=== PATIENT | male | born 1945 | race Caucasian/White ===

== ENCOUNTER 2016-08-16 09:37 | Observation (INO) | payer OTHER ==
[~2016-08-16] VITALS: Ht 188 cm; Wt 104.3 kg
[~2016-08-16 09:37] MED LIST: ADVAIR 250-501 EACH INH; ADVAIR DISKUS 21 DSK INH; ALBUTEROL2.5 MG/3 M INH/SOL; ALDACTONE 25 MG25 MG PO; ALLOPURINOL300 M1 PO; AMIODARONE HCL200 M1 PO; AMIODARONE HCL200 MG PO; AMOXIL500 MG PO; ATORVASTATIN CA20 MG PO; ATORVASTATIN CA40 M1 PO; AUGMENTIN 875 M1 TAB PO; AUGMENTIN 875875 MG PO; AZITHROMYCIN IV; AZITHROMYCIN250 M1 PO; BACTRIM DS 8001 TAB PO; CARDIZEM CD120 MG PO; CARDIZEM CD240 M1 PO; CARDIZEM CD360 MG PO; CLEOCIN HCL300 MG PO; COLCHICINE0.6 MG PO; DIGOX0.125 MG PO; DIGOXIN0.125 MG PO; DIGOXIN125 MCG PO; DILTIAZEM HCL120 M2 PO; DILTIAZEM240 M1 PO; ELIQUIS2.5 MG PO; ELIQUIS5 M1 PO; ELIQUIS5 MG PO; FUROSEMIDE20 MG PO; FUROSEMIDE40 MG PO; HUMALOG 100U100 U/ML SC; HYDRALAZINE10 MG PO; KEFLEX500 MG PO; KLOR-CON 10MEQ10 MEQ PO; KLOR-CON M2020 MEQ PO; LASIX20 MG PO; LEVEMIR 10100 UNITS/ SC; LEVEMIR FL300 UNITS/ INJ; LEVEMIR FLEX100 U/ML SC; LIPITOR20 MG PO; LIPITOR40 M1 PO; LISINOPRIL10 M1 PO; METOPROLOL SUCC50 M1 PO; MOTRIN 600 MG600 MG PO; NICODERM C7 MG/24 HR TOP; NOVOLOG FLEX100 U/ML SC; OXYCODONE5 MG PO; PERCOCET 325 MG1 TA2 PO; PREDNISONE 10MG10 M1 PO; PREDNISONE 20MG20 MG PO; PREDNISONE 5 MG5 MG PO; PREDNISONE10 M2 PO; PREDNISONE10 MG PO; PREDNISONE5 MG PO; PRINIVIL 5MG5 MG PO; PROTONIX 40MG T40 MG PO; PROTONIX20 M1 PO; ROCEPHIN1000 MG IV; SOLU-MEDROL40 MG IV; SPIRIVA 18 MCG18 MCG INH; SPIRIVA18 MCG INH; SYMBICORT 160/41 PUF INH; Senokot S PO; TUDORZA PR400 MCG/Ac INH; VENTOLIN HFA18 GM INH; VITAMIN D1000 IU PO; VITAMIN D31000 IU PO; Vitamin D PO; ZITHROMAX 500M500 MG PO
--- NOTE | 2016-08-16 09:57 | NUR ---
PT C/O CP AND MORE SOB THEN USUAL X 2 DAYS. STATES PAIN IS PRIMARILY ON RIGHT SIDE. DENIES SWELLING IN ANKLES, STATES HE DOES TAKE LASIX. REPORTS A CLOSE FRIEND RECENTLY AT [place]
--- NOTE | 2016-08-16 10:09 | NUR ---
PT TO XRAY VIA W/C
--- NOTE | 2016-08-16 10:33 | ED DYSPNEA/ASTHMA COMPLAINT ---
History of Present Illness General Chief Complaint: Chest Pain Stated Complaint: CP AND SOB X 2DAYS, 2 LITERS OF O2 DAILY Source: patient, old records Exam Limitations: no limitations Vital Signs & Intake/Output Vital Signs & Intake/Output Vital Signs Date Time Temp Pulse Resp B/P Pulse O2 O2 Flow FiO2 Ox Delivery Rate 08/16 1204 98.4 70 24 107/57 98 Nasal 2.0L Cannula 08/16 1106 96 Nasal 2.0L Cannula 08/16 1049 96 Nasal 2.0L Cannula 08/16 0955 99.7 84 24 93/57 96 Nasal 2.0L Cannula Allergies Coded Allergies: NO KNOWN ALLERGIES (08/21/15) Reconcile Medications Albuterol Sulfate (Ventolin Hfa) 90 MCG HFA.AER.AD 2 PUFF INH 4 TIMES/DAY PRN WHEEZE/OUPDEWLIW-PK-AKBLAM (Reported) Albuterol Sulfate (Proventil) 2.5 MG/3 ML NEB 3 ML INH Q4P PRN SHORTNESS OF BREATH (Reported) Allopurinol 300 MG TAB 0.5 TAB PO DAILY GOUT (Reported) Amiodarone Hydrochloride (Amiodarone) 200 MG TAB 1 TAB PO DAILY HEART ( Reported) Apixaban (Eliquis) 5 MG TABLET 1 TAB PO BID BLOOD THINNER (Reported) Atorvastatin Calcium (Lipitor) 40 MG TAB 1 TAB PO QPM CHOLESTEROL (Reported) Azithromycin 250 MG TABLET 1 TAB PO DAILY COPD Digoxin 0.125 MG TAB 1 TAB PO QAM HEART (Reported) Diltiazem HCl (Cardizem Cd) 240 MG CAP.ER.24H 0.5 TAB PO DAILY HEART HEALTH ( Reported) FLUTICASONE/SALMETEROL (Advair 250-50 Diskus) 250 MCG-50 MCG/DOSE BLST.W.DEV 1 PUF INH BID COPD (Reported) Insulin Detemir (Levemir Flexpen) 100 UNIT/ML (3 ML) INSULN.PEN 10 UNIT SC QAM DIABETES (Reported) Insulin Lispro (Humalog) 100 UNIT/ML VIAL 0 SC TIDAC PRN DIABETES (Reported) 80-150 -- 1 UNIT. 151-200 -- 3 UNITS. 201-250 -- 5 UNITS. 251 - 300 -- 7 UNITS. 301 - 350 -- 9 UNITS. 351 - 400 -- 11 UNITS. >400 -- 13 UNITS AND CALL YOUR DOCTOR Lisinopril 10 MG TABLET 1 TAB PO DAILY HIGH BLOOD PRESSURE (Reported) Metoprolol Succinate (Metoprolol Succinate XL) [address] 1 TAB PO DAILY HEART/ BP (Reported) Pantoprazole Sodium (Protonix) 20 MG TAB 1 TAB PO DAILY ACID REFLUX (Reported ) Prednisone 10 MG TABLET 10 MG PO SI COPD On Take 05/18 4 tabs per day 05/19-05/20 3 tabs per day 05/21-05/22 2 tabs per day Then continue taking 2 tabs per day Tiotropium [place] (Spiriva) 18 MCG CAP.W.DEV 2 PUFF INH DAILY COPD (Reported ) Triage Note: PT C/O CP AND MORE SOB THEN USUAL X 2 DAYS. STATES PAIN IS PRIMARILY ON RIGHT SIDE. DENIES SWELLING IN ANKLES, STATES HE DOES TAKE LASIX. REPORTS A CLOSE FRIEND RECENTLY AT [place] Triage Nurses Notes Reviewed? yes HPI: Patient presents with increasing shortness of breath, cough and chills. Patient also states that he is been having some right-sided sharp chest pain for the past 8 hours. The pain is intermittent lasting a few seconds and then going away. There is no radiation of the pain. Positive dyspnea on exertion and wheezing. Patient has had to increase his O2 from 2 L/m to 4 L/m. Denies any weight gain. Positive anorexia but no nausea or vomiting. No documented fevers. Past History Travel History Traveled to [place] past 21 day No Medical History Any Pertinent Medical History? 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 Uncle ([place] at age 40). FH: myocardial infarction SISTER FH: lung cancer Hx Contributory? No Review of Systems Review of Systems Constitutional: Reports: see HPI, chills. EENTM: Reports: no symptoms. Respiratory: Reports: see HPI, cough, short of breath, wheezing. Cardiovascular: Reports: see HPI, chest pain. GI: Reports: no symptoms. Genitourinary: Reports: no symptoms. Musculoskeletal: Reports: no symptoms. Skin: Reports: no symptoms. Neurological/Psychological: Reports: no symptoms. Hematologic/Endocrine: Reports: no symptoms. Immunologic/Allergic: Reports: no symptoms. All Other Systems: Reviewed and Negative Physical Exam Physical Exam General Appearance: well developed/nourished, alert, awake, mild distress Head: atraumatic Eyes: Bilateral: PERRL, EOMI. Ears, Nose, Throat: normal pharynx, normal ENT inspection Neck: normal inspection, supple, full range of motion Respiratory: rhonchi, wheezing, respiratory distress Cardiovascular: regular rate/rhythm, normal peripheral pulses Gastrointestinal: normal bowel sounds, soft, non-tender Extremities: normal inspection, normal capillary refill, normal range of motion, no edema Neurologic/Psych: no motor/sensory deficits, awake, alert, oriented x 3, normal mood/affect Lymphatic: no anterior cervical alvino Core Measures ACS in differential dx? Yes ASA ordered for poss ACS? 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 Supervisor 08/16 1033 Active BLOOD CULTURE 08/16 1033 Active TROPONIN LEVEL 08/16 0958 Complete COMPREHENSIVE METABOLIC PANEL 08/16 0958 Complete CBC WITHOUT DIFFERENTIAL 08/16 0958 Complete EKG 08/16 0941 Active Laboratory Tests 08/16/16 1123: Anion Gap 9, Estimated GFR 46 L, BUN/Creatinine Ratio 22.7, Glucose 98, Calcium 9.9, Total Bilirubin 0.7, AST 21, ALT 25, Alkaline Phosphatase 63, Troponin I < 0.01, Total Protein 6.1 L, Albumin 3.6, Globulin 2.5, Albumin/Globulin Ratio 1.4 08/16/16 1035: CBC w Diff MAN DIFF ORDERED, RBC 4.58 L, MCV 90.3, MCH 29.4, RDW 16.5 H, MPV 8.7, Gran % 85.8 H, Lymphocytes % 7.1 L, Monocytes % 3.7, Eosinophils % 3.1, Basophils % 0.3, Absolute Granulocytes 8.6 H, Absolute Lymphocytes 0.7 L, Absolute Monocytes 0.4, Absolute Eosinophils 0.3, Absolute Basophils 0, Platelet Estimate ADEQUATE, Normocytic RBCs VERIFIED, Normochromic RBCs VERIFIED, PUBS MCHC 32.6 L Microbiology 08/16 1045 BLOOD: Blood Culture - RECD 08/16 1035 BLOOD: Blood Culture - RECD Diagnostic Imaging: Viewed by Me: Radiology Read. Discussed w/RAD: Radiology Read. CXR Impression: PATIENT: TESSA YANEZ JR PRESENT AGE: 71 PATIENT ACCOUNT NO: [id number] : 45 LOCATION: [facility] ORDERING PHYSICIAN: VAL GOODMAN MD SERVICE DATE: 08/16/16 EXAM TYPE: RAD - XRY-CHEST XRAY, PA AND LATERAL EXAMINATION: XR CHEST CLINICAL INFORMATION: Pneumonia cough shortness of breath COMPARISON: Prior chest April 2016 TECHNIQUE: PA and lateral views of the chest were obtained. FINDINGS: Calcification of the dorsal aorta unchanged. Cardiac silhouette mediastinum and pulmonary vascularity are otherwise normal. Lungs clear. Deformity of the right chest wall related to old rib fracture unchanged. IMPRESSION: No acute disease. DICTATED BY: TESSA LEO MD DATE/TIME DICTATED:08/16/161036 LEADER TIER:KIRSTY DATE/TIME TRANSCRIBED:08/16/161036 CONFIDENTIAL, DO NOT COPY WITHOUT APPROPRIATE AUTHORIZATION. <Electronically signed in Other Vendor System> SIGNED BY: TESSA LEO MD 08/16/16 1042 Initial ED EKG: NSR, nonspecific ST T wave chg Prior EKG: unchanged Rhythm Strip: normal sinus rhythm Comments: Patient ambulatory O2 sat was 94% on his 2 L of oxygen however he became very short of breath and was only speaking in 3 word sentences. Departure Departure Disposition: STILL A PATIENT Condition: Guarded Clinical Impression Primary Impression: COPD exacerbation Referrals: DESHAWN LEBRON MD (PCP/Family) Departure Forms: Customer Survey General Discharge Information Observation Note Spoke With: DESHAWN LEBRON MD Physician Advisor Notified: MAIRA ESPINO MD Place Patient In: Non-ED OBS Care Area Rationale for Observation: My rational for observation is as follows [IV steroids, IV antibiotics, nebulizers, pulmonary consult]. Critical Care Note Critical Care Note Critical Care Time: non-applicable
--- NOTE | 2016-08-16 10:40 | NUR ---
DR GOODMAN AT BEDSIDE FOR EVAL. LABS AND BLOOD CULTURES X 2 OBTAINED BY RN AND MST AND SENT. PT ON 2L OF OXYGEN VIA NC PER BASELINE. PT SAT 95% ON O2 RESP PAGED FOR TREATMENT.
--- NOTE | 2016-08-16 10:42 | RADIOLOGY REPORT ---
EXAMINATION: XR CHEST CLINICAL INFORMATION: Pneumonia cough shortness of breath COMPARISON: Prior chest April 2016 TECHNIQUE: PA and lateral views of the chest were obtained. FINDINGS: Calcification of the dorsal aorta unchanged. Cardiac silhouette mediastinum and pulmonary vascularity are otherwise normal. Lungs clear. Deformity of the right chest wall related to old rib fracture unchanged. IMPRESSION: No acute disease.
[2016-08-16 10:48] LABS: ABSOLUTE BASOPHIL COUNT 0 /CUMM (0.0-0.2); ABSOLUTE EOSINOPHIL COUNT 0.3 /CUMM (0.0-0.7); ABSOLUTE GRANULOCYTE CT 8.6 /CUMM (1.4-6.5); ABSOLUTE LYMPH COUNT 0.7 /CUMM (1.2-3.4); ABSOLUTE MONOCYTE COUNT 0.4 /CUMM (0.10-0.60); BASOPHIL % 0.3 % (0.0-2.0); EOSINOPHIL % 3.1 % (0-5); GRANULOCYTE % 85.8 % (42.2-75.2); HEMATOCRIT 41.4 % (42-52); MEAN CORPUSCULAR HGB 29.4 PG (27.0-31.0); MEAN CORPUSCULAR HGB CONC 32.6 G/DL (33.0-37.0); MEAN CORPUSCULAR VOLUME 90.3 FL (80.0-94.0); MEAN PLATELET VOLUME 8.7 FL (7.4-10.4); PLATELET COUNT 242 /CUMM (130-400); RBC DISTRIBUTION WIDTH 16.5 % (11.5-14.5); RED BLOOD CELL CT 4.58 /CUMM (4.70-6.10); WHITE BLOOD CELL COUNT 10.1 /CUMM (4.8-10.8)
--- NOTE | 2016-08-16 10:49 | NUR ---
RT, KEYANA, AT BEDSIDE FOR NEB TREATMENT. PT MEDICATED WITH SOLUMERDROL AND ANTIBIOTICS PER eMAR.
--- NOTE | 2016-08-16 12:05 | NUR ---
PT REPORTS FEELING "A LITTLE BIT BETTER," ZITHROMAX INFUSING, SATS 98% ON BASELINE NC 2L.
--- NOTE | 2016-08-16 12:48 | NUR ---
AMBULATORY SATS 93-95 ON BASELINE 2L NC, PT C/O SEVERE INTERIANO AND TOLD DR GOODMAN HE WANTS TO STAY IN THE HOSPITAL. RETURNED TO BED, SATS 98 AT REST.
--- NOTE | 2016-08-16 14:36 | NUR ---
PT STATING HE CANNOT TOLERATE IV LINE IN [facility] AND "IF YOU DON'T GET IN HERE AND TAKE IT OUT RIGHT NOW, I'M GOING TO TAKE IT OUT MYSELF." PT INFORMED HE NEEDS TO HAVE AN IV LINE SINCE HE HAS REQUESTED TO STAY FOR OBSERVATION. IV SWITCHED.
--- NOTE | 2016-08-16 14:39 | NUR ---
PT ADMITTED TO ROOM 204-1
--- NOTE | 2016-08-16 15:02 | NUR ---
HOUSE STAFF AT BEDSIDE FOR EVAL
--- NOTE | 2016-08-16 15:37 | NUR ---
HOUSE STAFF QUETA COMPLETE, REPORT CALLED TO [facility] [address] AND TRANSPORT BOOKED.
--- NOTE | 2016-08-16 15:50 | History & Physical ---
SUSANNE SEVILLA MD 08/16/16 7929: General Information and HPI MD Statement: I have seen and personally examined TESSA YANEZ JR and documented this H& P. The patient is a 71 year old M who presented with a patient stated chief complaint of worsening shortness of breath and right sided chest/shoulder pain. Source of Information: patient Exam Limitations: no limitations History of Present Illness: 71-year-old male with past medical history significant for COPD on 2.0 L home O2 , and CHF seen for evaluation of chest pain and shortness of breath. He reports worsening of his baseline shortness of breath over the past "few days" with associated right-sided chest/shoulder pain that worsens with deep breaths. He describes it as uncomfortable without radiation not relieved with NSAIDs/ Tylenol. He increased his oxygen to 4.0 L however this did not help his shortness of breath. He reports a baseline cough productive of clear sputum that originally appeared green. He reports associated nausea without vomiting. He denies any fever, chills, palpitations. He also admits to decreased food and water intake. Additionally he denies any headache, nausea, constipation, diarrhea, urinary frequency/urgency/pain/bloody urine. 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, able to complete ADLs w/o difficulty but limited to to exercise intolerance, ambulates with cane, poor appetite without restrictions, no recent travel or sick contacts, received flu vaccine this year Allergies/Medications Allergies: Coded Allergies: NO KNOWN ALLERGIES (08/21/15) Home Med list Albuterol Sulfate (Ventolin Hfa) 90 MCG HFA.AER.AD 2 PUFF INH 4 TIMES/DAY PRN WHEEZE/VXUHAVOOL-RP-[id number] (Reported) Albuterol Sulfate (Proventil) 2.5 MG/3 ML NEB 3 ML INH Q4P PRN SHORTNESS OF BREATH (Reported) Allopurinol 300 MG TAB 0.5 TAB PO DAILY GOUT (Reported) Amiodarone Hydrochloride (Amiodarone) 200 MG TAB 1 TAB PO DAILY HEART ( Reported) Apixaban (Eliquis) 5 MG TABLET 1 TAB PO BID BLOOD THINNER (Reported) Atorvastatin Calcium (Lipitor) 40 MG TAB 1 TAB PO QPM CHOLESTEROL (Reported) Digoxin 0.125 MG TAB 1 TAB PO QAM HEART (Reported) Diltiazem HCl (Cardizem Cd) 240 MG CAP.ER.24H 0.5 TAB PO DAILY HEART HEALTH ( Reported) FLUTICASONE/SALMETEROL (Advair 250-50 Diskus) 250 MCG-50 MCG/DOSE BLST.W.DEV 1 PUF INH BID COPD (Reported) Lisinopril 10 MG TABLET 1 TAB PO DAILY HIGH BLOOD PRESSURE (Reported) Reason to Stop at ADM: CHAKA Metoprolol Succinate (Metoprolol Succinate XL) [address] TAB PO DAILY HEART/ BP (Reported) Pantoprazole Sodium (Protonix) 20 MG TAB 1 TAB PO DAILY ACID REFLUX (Reported ) Spironolactone (Aldactone) 25 MG TABLET 1 TAB PO DAILY CHF (Reported) Tiotropium [place] (Spiriva) 18 MCG CAP.W.DEV 2 PUFF INH DAILY COPD (Reported ) Past History Travel History Traveled to [place] past 21 day No Medical History Neurological: NONE EENT: cataracts Cardiovascular: AFIB, CHF, hypertension, hyperlipidemia Respiratory: COPD (2L O2& steroid dependent), O2 DEP 2L Gastrointestinal: GERD, pancreatitis Hepatic: hepatic cysts Renal: chronic kidney disease Musculoskeletal: gout Psychiatric: NONE Endocrine: diabetes (insulin-requiring) Blood Disorders: NONE Cancer(s): NONE 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 Uncle ([place] at age 40). FH: myocardial infarction SISTER FH: lung cancer Psychosocial History Who Do You Live With? spouse, 2 daughters, one son, granddaughter and her Services at Home: Oxygen Primary Language: Guamanian ETOH Use: occasional use Illicit Drug Use: denies illicit drug use Functional Ability ADLs Independent: dressing, eating, toileting, bathing. Ambulation: independent IADLs Independent: shopping, housework, finances, food prep, telephone, transportation , medication admin. Review of Systems Review of Systems Constitutional: Reports: see HPI. Exam & Diagnostic Data Last 24 Hrs of Vital Signs/I&O Vital Signs Date Time Temp Pulse Resp B/P Pulse O2 O2 Flow FiO2 Ox Delivery Rate 08/16 1344 98.9 69 20 112/59 94 Nasal 2.0L Cannula 08/16 1204 98.4 70 24 107/57 98 Nasal 2.0L Cannula 08/16 1106 96 Nasal 2.0L Cannula 08/16 1049 96 Nasal 2.0L Cannula 08/16 0955 99.7 84 24 93/57 96 Nasal 2.0L Cannula Intake & Output 08/16 1600 08/16 0800 08/16 0000 Intake Total 750 Output Total Balance 750 Intake, IV 250 Intake, Oral 500 Patient 104.326 kg Weight Physical Exam General Appearance Alert, Oriented X3, Cooperative, No Acute Distress Skin No Rashes, No Breakdown, No Significant Lesion HEENT Atraumatic, PERRLA, EOMI, Mucous Membr. moist/pink Neck Supple Cardiovascular Regular Rate, Normal S1, Normal S2, No Murmurs Lungs Diffuse wheezing louder in right lung tinsley, no crackles Abdomen Normal Bowel Sounds, Soft, No Tenderness, No Hepatospenomegaly, No Masses Neurological Normal Speech, Normal Tone Extremities No Clubbing, No Cyanosis, No Edema, Normal Pulses, No Tenderness/ Swelling Vascular Normal Pulses, Pulses Symmetrical Last 24 Hrs of Labs/Chacorta: Laboratory Tests 08/16/16 1123: Anion Gap 9, Estimated GFR 46 L, BUN/Creatinine Ratio 22.7, Glucose 98, Calcium 9.9, Total Bilirubin 0.7, AST 21, ALT 25, Alkaline Phosphatase 63, Troponin I < 0.01, Total Protein 6.1 L, Albumin 3.6, Globulin 2.5, Albumin/Globulin Ratio 1.4 08/16/16 1035: CBC w Diff MAN DIFF ORDERED, RBC 4.58 L, MCV 90.3, MCH 29.4, RDW 16.5 H, MPV 8.7, Gran % 85.8 H, Lymphocytes % 7.1 L, Monocytes % 3.7, Eosinophils % 3.1, Basophils % 0.3, Absolute Granulocytes 8.6 H, Absolute Lymphocytes 0.7 L, Absolute Monocytes 0.4, Absolute Eosinophils 0.3, Absolute Basophils 0, Platelet Estimate ADEQUATE, Normocytic RBCs VERIFIED, Normochromic RBCs VERIFIED, PUBS MCHC 32.6 L Microbiology 08/16 1446 LOWER RESP: Respiratory Culture - COLB 08/16 1446 LOWER RESP: Gram Stain - COLB 08/16 1045 BLOOD: Blood Culture - RECD 08/16 1035 BLOOD: Blood Culture - RECD Diagnostic Data EKG Results NSR HR 82 MA [address] depression V4, present on previous T wave inversion AVF Nonspecific repolarization abnormality CXR Results No acute disease Assessment/Plan Assessment: 71-year-old male with multiple medical problems significant for COPD and CHF seen for evaluation of worsening shortness of breath and right-sided chest/ shoulder pain. Patient has had multiple admissions over the years, most recently in April, for related complaints. Patient of Dr. Bashir and Dr. Bello. Given his past medical history and presentation of symptoms he most likely has an exacerbation of his COPD with related pleuritic chest pain. However given his symptomology alternative diagnoses such as pulmonary embolism cannot be ruled out. Patient is to be admitted to the general medicine floor and started on intravenous fluids/antibiotics and given supplemental oxygen. Acute on chronic COPD exacerbation: History of COPD on 2.0 L home O2. Patient of Dr. Bello. -Supplemental oxygen, maintain >92% -[facility] neb treatments -Azithromycin 500 mg IV daily -Methylprednisolone 40 mg IV every 8 hours -Guaifenesin 600 mg by mouth twice a day -Zofran 4 mg by mouth when necessary for nausea -Pulmonology consult History of Systolic congestive heart failure: Last echocardiogram dated 04/26/15 demonstrated an EF of 35-40% with global hypokinesis. -Strict I's and O's -Trend troponin/EKGs -BNP -Digoxin 125mcg by mouth daily -Spironolactone 25 mg by mouth daily -2 g sodium restriction History of atrial fibrillation: EKG on admission demonstrated normal sinus rhythm with nonspecific T-wave inversions and repolarization abnormality. -Eliquis 5 mg by mouth twice a day -Cardizem 120mg PO Daily -Amiodarone 200 mg by mouth daily Acute kidney injury: Baseline creatinine 1.1-1.2 as of 07/03/16. Elevated to 1.5 on admission. -Hold lisinopril -Follow BEP Hyperlipidemia-stable, continue atorvastatin Hypertension - stable, lisinopril held as above for acute kidney injury Gout - stable, continue allopurinol follow up uric acid IDDM-reportedly stable, no longer on insulin, Accu-Cheks 3 times a day before meals/at bedtime Pain Plan: -Percocet 1 tab by mouth every 8 hours for pain 7-10 Diet-consistent carbohydrate with 2 g sodium or stricture DVT PPx -on Eliquis Code Status - DNR/DNI As Ranked By This Provider Problem List: 1. COPD Core Measures/Miscellaneous Acute Coronary Syndrome ACS Diagnosis: No Cerebrovascular Accident CVA/TIA Diagnosis: No Congestive Heart Failure CHF Diagnosis: No Venous Thromboembolism VTE Risk Factors: Age > 40, Smoking VTE Prophylaxis [facility]dered Inpt: [facility] prophylaxis d/t: No contraindications No VTE Pharm Prophylaxis d/t: No contraindications VTE Diagnosis: No VTE Type: NONE VTE Confirmed by (Test): NONE Severe Sepsis Severe Sepsis Present: No Septic Shock Septic Shock Present: No Miscellaneous Documentation Attending Case Discussed With: DESHAWN LEBRON MD Primary Care Physician: DESHAWN LEBRON MD Patient sees these Specialists Dr. Mckay Schneider Level of Patient Care: General Medicine Consults Needed: Consulting Specialty: Pulmonary Disease TABITHA MENON,GUILLERMINA 08/16/161926: Resident Review Statement Resident Statement: examined this patient, discussed with internal audit director, agreed with internal audit director, discussed with family, reviewed EMR data (avail), discussed with nursing , discussed with case mgmt, reviewed images, amended to note Other Findings: 71 yo male with COPD on 2 L home oxygen, A.fib on eliquis, HTN, systolic HF (EF 35-40%), DM not on medication came to shortness of breath for 2 days associated with Rt. chest pain. He c/o Rt. sided shoulder and chest pain worsening after deep breath. No fever. Cough with clear sputum. At baseline, he could walk only few blocks without SOB. V/S: afebrile, MA 71 RR 18, BP 104/54 91% on 2L, On exam , he looks dry. PERRLA, EOM intact, dry mouth, supple neck, diffuse wheezing heard on bilateral lungs, regular rate normal S1/S2, soft, non-tender abdomen, no LE edema. CBC unremarkable. K 5.2, Cr: 1.5, EKG: ectopic atrial rhythm with rate 82, normal axis, QTc 421, trop (-). CXR: unremarkable. 1. COPD exacerbation: no evidence of pneumonia from CXR, will treat with TRC/ nebs, IV azithromycin & IV solumedrol. Keep O2 > 92. Pulmonary consult will be obtained. Follow up blood/sputum cultures. Will check flu. 2. A.fib on eliquis: continue cardizem/eliquis/digoxin/amiodarone, confirm home medication list of b-casandra. follow cardiology consult. 3. HCAKA: Cr 1.5 (baseline 1.2). hold spironolactone/NSAID. Will give gentle hydration of 1L NS @ 50cc/hr and follow BEP. 4. DM: not on medication per patient. Will check Accucheck with HbA1c. 5. Rt.sided chest pain: pain pathway, avoid NSAIDS with CHAKA. DNR/I, DVT ppx: eliquis
[2016-08-16 16:35] VITALS: BP 104/54
--- NOTE | 2016-08-16 16:42 | Cons- Pulmonary ---
General Information and HPI Consulting Request Date of Consult: 08/16/16 Requested By: sultana Reason for Consult: Shortness of breath History of Present Illness: Patient is 71-year-old with advanced severe COPD oxygen dependent Julio pizarro on Eliquis presented with several days of increasing shortness of breath and aching right chest pain made sharp with cough or motion. He's had no fevers chills night sweats. He has scant sputum. He said no hemoptysis. Oxygen saturations have been preserved. Chest x-ray shows no acute findings Allergies/Medications Allergies: Coded Allergies: NO KNOWN ALLERGIES (08/21/15) Home Med List: Albuterol Sulfate (Ventolin Hfa) 90 MCG HFA.AER.AD 2 PUFF INH 4 TIMES/DAY PRN WHEEZE/[id number]-VZOYON (Reported) Albuterol Sulfate (Proventil) 2.5 MG/3 ML NEB 3 ML INH Q4P PRN SHORTNESS OF BREATH (Reported) Allopurinol 300 MG TAB 0.5 TAB PO DAILY GOUT (Reported) Amiodarone Hydrochloride (Amiodarone) 200 MG TAB 1 TAB PO DAILY HEART ( Reported) Apixaban (Eliquis) 5 MG TABLET 1 TAB PO BID BLOOD THINNER (Reported) Atorvastatin Calcium (Lipitor) 40 MG TAB 1 TAB PO QPM CHOLESTEROL (Reported) Digoxin 0.125 MG TAB 1 TAB PO QAM HEART (Reported) Diltiazem HCl (Cardizem Cd) 240 MG CAP.ER.24H 0.5 TAB PO DAILY HEART HEALTH ( Reported) FLUTICASONE/SALMETEROL (Advair 250-50 Diskus) 250 MCG-50 MCG/DOSE BLST.W.DEV 1 PUF INH BID COPD (Reported) Insulin Detemir (Levemir Flexpen) 100 UNIT/ML (3 ML) INSULN.PEN 10 UNIT SC QAM DIABETES (Reported) Insulin Lispro (Humalog) 100 UNIT/ML VIAL 0 SC TIDAC PRN DIABETES (Reported) 80-150 -- 1 UNIT. 151-200 -- 3 UNITS. 201-250 -- 5 UNITS. 251 - 300 -- 7 UNITS. 301 - 350 -- 9 UNITS. 351 - 400 -- 11 UNITS. >400 -- 13 UNITS AND CALL YOUR DOCTOR Lisinopril 10 MG TABLET 1 TAB PO DAILY HIGH BLOOD PRESSURE (Reported) Reason to Stop at ADM: CHAKA Metoprolol Succinate (Metoprolol Succinate XL) [address] 1 TAB PO DAILY HEART/ BP (Reported) Pantoprazole Sodium (Protonix) 20 MG TAB 1 TAB PO DAILY ACID REFLUX (Reported ) Tiotropium Hewitt (Spiriva) 18 MCG CAP.W.DEV 2 PUFF INH DAILY COPD (Reported ) Review of Systems Review of Systems Constitutional: Denies: chills, fever. Cardiovascular: Reports: chest pain. Denies: edema, peripheral edema, syncope. Respiratory: Reports: cough, short of breath, wheezing. GI: Denies: abdominal pain, diarrhea, melena. Genitourinary: Denies: dysuria, frequency. 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 Uncle (ND at age 40). FH: myocardial infarction SISTER FH: lung cancer Psychosocial History Who Do You Live With? spouse, 2 daughters, one son, granddaughter and her Services at Home: Oxygen Primary Language: Turkmen ETOH Use: occasional use Illicit Drug Use: denies illicit drug use Functional Ability ADLs Independent: dressing, eating, toileting, bathing. Ambulation: independent IADLs Independent: shopping, housework, finances, food prep, telephone, transportation , medication admin. Exam & Diagnostic Data Last 24 Hrs of Vital Signs/I&O Vital Signs Date Time Temp Pulse Resp B/P Pulse O2 O2 Flow FiO2 Ox Delivery Rate 08/16 1635 98.2 71 18 104/54 91 Nasal 2.0L Cannula 08/16 1344 98.9 69 20 112/59 94 Nasal 2.0L Cannula 08/16 1204 98.4 70 24 107/57 98 Nasal 2.0L Cannula 08/16 1106 96 Nasal 2.0L Cannula 08/16 1049 96 Nasal 2.0L Cannula 08/16 0955 99.7 84 24 93/57 96 Nasal 2.0L Cannula Intake & Output 08/16 1600 08/16 0800 08/16 0000 Intake Total 750 Output Total Balance 750 Intake, IV 250 Intake, Oral 500 Patient 230 lb Weight Oxygen saturation on 2 L is 9194% HEENT exam shows no adenopathy exam of his chest shows soft bilateral expiratory wheezing cardiac exam shows regular S1 and S2 without murmurs abdomen is soft nontender extremities without edema or calf tenderness there is significant right mid costochondral discomfort which reproduces his pain Last 48 Hrs of Labs/Chacorta: Laboratory Tests 08/16/16 1123: Anion Gap 9, Estimated GFR 46 L, BUN/Creatinine Ratio 22.7, Glucose 98, Calcium 9.9, Total Bilirubin 0.7, AST 21, ALT 25, Alkaline Phosphatase 63, Troponin I < 0.01, Total Protein 6.1 L, Albumin 3.6, Globulin 2.5, Albumin/Globulin Ratio 1.4 08/16/16 1035: CBC w Diff MAN DIFF ORDERED, RBC 4.58 L, MCV 90.3, MCH 29.4, RDW 16.5 H, MPV 8.7, Gran % 85.8 H, Lymphocytes % 7.1 L, Monocytes % 3.7, Eosinophils % 3.1, Basophils % 0.3, Absolute Granulocytes 8.6 H, Absolute Lymphocytes 0.7 L, Absolute Monocytes 0.4, Absolute Eosinophils 0.3, Absolute Basophils 0, Platelet Estimate ADEQUATE, Normocytic RBCs VERIFIED, Normochromic RBCs VERIFIED, PUBS MCHC 32.6 L Assessment/Plan Impression/Plan: 71-year-old gentleman with severe COPD is had increasing shortness of breath associated with bronchospasm. His chest pain is likely musculoskeletal. He is anticoagulated for atrial fibrillation. Though his BMP is elevated there is no evidence of congestive heart failure on his chest x-ray. Recommendations: Assess quick flu. Continue IV steroids Zithromax. Obtain sputum C&S. Consult Acknowledgment - Thank you for your consult request.
[2016-08-16] MEDS ORDERED: ALDACTONE25 MG PO (17:47)
--- NOTE | 2016-08-16 18:04 | Cons- Cardiology ---
General Information and HPI Consulting Request Date of Consult: 08/16/16 Requested By: DESHAWN LEBRON MD History of Present Illness: The patient is a 71-year-old male with history of severe COPD, systolic heart failure, paroxysmal atrial fibrillation who is well known to me. He presents with complaint of chest discomfort and shortness of breath. The shortness of was worsening over the past few days. It was associated with sharp right-sided chest pain. He increased his oxygen to 4 liters as the shortness breath no palpitations no diaphoresis. Syncope. Lightheadedness or dizziness. He is known to have chronic failure with LVEF 35 dash 40%. He had a cardiac catheterization in 2016 which showed no obstructive disease. Allergies/Medications Allergies: Coded Allergies: NO KNOWN ALLERGIES (08/21/15) Home Med List: Albuterol Sulfate (Ventolin Hfa) 90 MCG HFA.AER.AD 2 PUFF INH 4 TIMES/DAY PRN WHEEZE/[id number] (Reported) Albuterol Sulfate (Proventil) 2.5 MG/3 ML NEB 3 ML INH Q4P PRN SHORTNESS OF BREATH (Reported) Allopurinol 300 MG TAB 0.5 TAB PO DAILY GOUT (Reported) Amiodarone Hydrochloride (Amiodarone) 200 MG TAB 1 TAB PO DAILY HEART ( Reported) Apixaban (Eliquis) 5 MG TABLET 1 TAB PO BID BLOOD THINNER (Reported) Atorvastatin Calcium (Lipitor) 40 MG TAB 1 TAB PO QPM CHOLESTEROL (Reported) Azithromycin 250 MG TABLET 1 TAB PO DAILY COPD TAKE ONE TABLET BY MOUTH DAILY STARTING 08/19/16. Digoxin 0.125 MG TAB 1 TAB PO QAM HEART (Reported) Diltiazem HCl (Cardizem Cd) 240 MG CAP.ER.24H 0.5 TAB PO DAILY HEART HEALTH ( Reported) FLUTICASONE/SALMETEROL (Advair 250-50 Diskus) 250 MCG-50 MCG/DOSE BLST.W.DEV 1 PUF INH BID COPD (Reported) Lisinopril 10 MG TABLET 1 TAB PO DAILY HIGH BLOOD PRESSURE (Reported) Reason to Stop at ADM: CHAKA Pantoprazole Sodium (Protonix) 20 MG TAB 1 TAB PO DAILY ACID REFLUX (Reported ) Prednisone 10 MG TABLET 1 TAB PO DAILY COPD PLEASE TAKE 3 TABS(30MG) ON 08/19, 08/20 2 TABS(20MG) ON 08/21, 08/22 1 TABS(10MG) ON 08/23, 08/24 PLEASE STOP ON 08/24 Spironolactone (Aldactone) 25 MG TABLET 1 TAB PO DAILY CHF (Reported) Tiotropium Dray[place] (Spiriva) 18 MCG CAP.W.DEV 2 PUFF INH DAILY COPD (Reported ) Current Medications: Current Medications Sig/Luis Start time Last Medication Dose Route Stop Time Status Admin Acetaminophen 1,000 MG Q6P PRN 08/16 1930 AC IV Acetaminophen 325 MG Q6P PRN 08/16 1430 AC PO Albuterol Sulfate 3 ML EVERY 4 HRS/AWAKE 08/16 2000 AC INH Albuterol Sulfate 3 ML Q4P PRN 08/16 1445 AC INH Albuterol Sulfate 3 ML ONCE ONE 08/16 1100 DC 08/16 INH 08/16 1101 1049 Allopurinol 300 MG DAILY 08/17 1000 AC PO Amiodarone HCl 200 MG DAILY 08/17 1000 AC PO Apixaban 5 MG BID 08/16 2200 AC PO Atorvastatin Calcium 40 MG QPM 08/16 2200 AC PO Azithromycin 500 MG DAILY 08/17 1000 AC Dextrose/Water 250 ML IV Azithromycin 500 MG ONCE ONE 08/16 1045 DC 08/16 Dextrose/Water 250 ML IV 08/16 1144 1103 Budesonide/ 2 PUF BID 08/16 2200 AC Formoterol Fumarate INH Ceftriaxone Sodium 1,000 MG ONCE ONE 08/16 1045 DC 08/16 IV 08/16 1046 1050 Ceftriaxone Sodium 0 .STK-MED ONE 08/16 1044 DC .ROUTE Digoxin 0.125 MG DAILY 08/17 1000 AC PO Diltiazem HCl 120 MG DAILY 08/17 1000 AC PO Heparin Sodium 5,000 UNIT Q8 08/16 2200 CAN (Porcine) SC Ibuprofen 600 MG Q6P PRN 08/16 1430 DC PO Ipratropium Drayton 2.5 ML ONCE ONE 08/16 1100 DC 08/16 INH 08/16 1101 1049 Methylprednisolone 40 MG Q8 08/17 0600 AC IV Methylprednisolone 125 MG ONCE ONE 08/16 1045 DC 08/16 IV 08/16 1046 1045 Methylprednisolone 0 .STK-MED ONE 08/16 1044 DC .ROUTE Omeprazole 40 MG DAILY AC 08/17 0700 AC PO Oxycodone/ 1 TAB Q8P PRN 08/16 1445 AC Acetaminophen PO Polyethylene Glycol 17 GM AT BEDTIME PRN 08/16 1445 AC PO Sodium Chloride 1,000 ML Q20H 08/16 1615 AC 08/16 IV 08/17 1214 1800 Spironolactone 25 MG DAILY 08/17 1000 CAN PO Tiotropium Drayton 1 PUF DAILY 08/16 1745 AC INH Review of Systems Review of Systems: No rash. No tremor. No melena. No diaphoresis. All other systems are reviewed and are noted to be negative. 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 Uncle (DC at age 40). FH: myocardial infarction SISTER FH: lung cancer Psychosocial History Who Do You Live With? spouse, 2 daughters, one son, granddaughter and her Services at Home: Oxygen Primary Language: Kiswahili ETOH Use: occasional use Illicit Drug Use: denies illicit drug use Functional Ability ADLs Independent: dressing, eating, toileting, bathing. Ambulation: independent IADLs Independent: shopping, housework, finances, food prep, telephone, transportation , medication admin. ECHO Results (as available) Report: CONCLUSIONS Mild left ventricular dilatation. Moderately reduced left ventricular systolic function. Left ventricular ejection fraction is estimated at 35-40 %. Global hypokinesis. Trace mitral regurgitation. Trace tricuspid regurgitation. Trace pulmonic regurgitation. Exam & Diagnostic Data Vital Signs and I&O Vital Signs Date Time Temp Pulse Resp B/P Pulse O2 O2 Flow FiO2 Ox Delivery Rate 08/16 1824 Nasal 2.0L Cannula 08/16 1635 98.2 71 18 104/54 91 Nasal 2.0L Cannula 08/16 1600 Nasal 2.0L Cannula 08/16 1344 98.9 69 20 112/59 94 Nasal 2.0L Cannula 08/16 1204 98.4 70 24 107/57 98 Nasal 2.0L Cannula 08/16 1106 96 Nasal 2.0L Cannula 08/16 1049 96 Nasal 2.0L Cannula 08/16 0955 99.7 84 24 93/57 96 Nasal 2.0L Cannula Intake & Output 08/16 1600 08/16 0800 08/16 0000 08/15 1600 08/15 0800 08/15 0000 Intake Total 750 Output Total Balance 750 Intake, IV 250 Intake, Oral 500 Patient 230 lb Weight Physical Exam: Gen: The patient is in no acute distress HEENT: Normal nose, ears, and oropharynx. Pupils equal bilaterally. Conjunctiva normal. Neck: Supple with no JVD, no masses, and no thyromegaly Lungs: bilateral wheezes with normal respiratory effort Heart: RRR, S1, S2, 1/6 systolic murmur. 1+ peripheral edema, 2+ pulses in the lower extremities bilaterally Abdomen: Soft, nontender, no masses. No hepatomegaly. No splenomegaly Extremities: No clubbing or cyanosis. Normal muscle strength in the upper and lower extremities. Skin: Normal skin turgor with no skin ulcers or lesions noted. Neuro: Cranial nerves intact. Sensation intact Psych: Alert and oriented 3 with appropriate affect Labs/Chacorta Results: Laboratory Tests 08/16 08/16 1123 1035 Chemistry Sodium (137 - 145 mmol/L) 138 Potassium (3.5 - 5.1 mmol/L) 5.2 H Chloride (98 - 107 mmol/L) 99 Carbon Dioxide (22 - 30 mmol/L) 30 Anion Gap (5 - 16) 9 BUN (9 - 20 mg/dL) 34 H Creatinine (0.7 - 1.2 mg/dL) 1.5 H Estimated GFR (>60 ml/min) 46 L BUN/Creatinine Ratio (7 - 25 %) 22.7 Glucose (65 - 99 mg/dL) 98 Calcium (8.4 - 10.2 mg/dL) 9.9 Total Bilirubin (0.2 - 1.3 mg/dL) 0.7 AST (17 - 59 U/L) 21 ALT (21 - 72 U/L) 25 Alkaline Phosphatase (< 127 U/L) 63 Troponin I (<0.11 ng/ml) < 0.01 Total Protein (6.3 - 8.2 g/dL) 6.1 L Albumin (3.5 - 5.0 g/dL) 3.6 Globulin (1.9 - 4.2 gm/dL) 2.5 Albumin/Globulin Ratio (1.1 - 2.2 %) 1.4 Hematology CBC w Diff MAN DIFF ORDERED WBC (4.8 - 10.8 /CUMM) 10.1 RBC (4.70 - 6.10 /CUMM) 4.58 L Hgb (14.0 - 18.0 G/DL) 13.5 L Hct (42 - 52 %) 41.4 L MCV (80.0 - 94.0 FL) 90.3 MCH (27.0 - 31.0 PG) 29.4 RDW (11.5 - 14.5 %) 16.5 H Plt Count (130 - 400 /CUMM) 242 MPV (7.4 - 10.4 FL) 8.7 Gran % (42.2 - 75.2 %) 85.8 H Lymphocytes % (20.5 - 51.1 %) 7.1 L Monocytes % (1.7 - 9.3 %) 3.7 Eosinophils % (0 - 5 %) 3.1 Basophils % (0.0 - 2.0 %) 0.3 Absolute Granulocytes (1.4 - 6.5 /CUMM) 8.6 H Absolute Lymphocytes (1.2 - 3.4 /CUMM) 0.7 L Absolute Monocytes (0.10 - 0.60 /CUMM) 0.4 Absolute Eosinophils (0.0 - 0.7 /CUMM) 0.3 Absolute Basophils (0.0 - 0.2 /CUMM) 0 Platelet Estimate (ADEQUATE) ADEQUATE Normocytic RBCs VERIFIED Normochromic RBCs VERIFIED PUBS MCHC (33.0 - 37.0 G/DL) 32.6 L Diagnostic Data EKG Results EKG tracing is independently reviewed, and reveals sinus rhythm at [address] abnormality CXR Results chest x-ray: No evidence of acute cardiac or pulmonary disease Assessment/Plan Assessment/Plan assessment: 71-year-old male with history of nonischemic cardiomyopathy and paroxysmal atrial fibrillation presenting with COPD exacerbation. He is noted to sharp right-sided pain which is atypical. He is noted to have evidence of acute renal insufficiency. Initial troponin is negative. Recommendations: * Treatment of COPD exacerbation as per Pulmonary * Check 2nd troponin to rule out myocardial infarction * Continue Eliquis for anticoagulation * Continue amiodarone for maintenance of sinus rhythm * Continue other cardiac medications. Consult Acknowledgment - Thank you for your consult request.
--- NOTE | 2016-08-16 18:56 | NUR ---
[id number] PATIENT ARRIVED TO FLOOR ALERT AND ORIENTED X 3. VITAL SIGNS STABLE. ON 2L O2 VIA NASAL CANNULA BED LOW AND LOCKED. CALL LIGHT WITHIN REACH NO DISTRESS AT THIS TIME. PATIENT RESTING COMFORTABLY. WILL CONTINUE TO MONITOR
--- NOTE | 2016-08-16 21:37 | Admission Certification ---
Admission Certification Certification Statement - As attending physician, I certify that at the time of - admission, based on clinical presentation, severity of - symptoms, need for further diagnostic testing and - therapeutic interventions, and risk of adverse outcomes - without in-hospital treatment, in my clinical assessment, - this patient requires an acute hospital stay for a minimum - of two nights or longer. I have also considered psychsocial - factors such as support system, advanced age, financial - issues, cognitive issues, and failed out-patient treatments, - past re-admission history, safety of patient, and lack of - compliance as applicable. Specific rationale supporting this admission is: Exacerbation of COPD and right shoulder pain
--- NOTE | 2016-08-16 21:40 | PN- Att Addend ---
Attending Addendum Attending Brief Note 71-year-old white male with severe COPD on home oxygen, for the last few days increased shortness of breath, right shoulder pain radiated to the anterior chest worse with deep inspiration. Some cough but no sputum. Patient using his oxygen at home. Comes to the ER for evaluation and was admitted will have pulmonary consultation with Dr. Bello who knows him well. Will be treated for his exacerbation of COPD area Laboratory Tests 08/16 08/16 1123 1035 Chemistry Sodium (137 - 145 mmol/L) 138 Potassium (3.5 - 5.1 mmol/L) 5.2 H Chloride (98 - 107 mmol/L) 99 Carbon Dioxide (22 - 30 mmol/L) 30 Anion Gap (5 - 16) 9 BUN (9 - 20 mg/dL) 34 H Creatinine (0.7 - 1.2 mg/dL) 1.5 H Estimated GFR (>60 ml/min) 46 L BUN/Creatinine Ratio (7 - 25 %) 22.7 Glucose (65 - 99 mg/dL) 98 Calcium (8.4 - 10.2 mg/dL) 9.9 Total Bilirubin (0.2 - 1.3 mg/dL) 0.7 AST (17 - 59 U/L) 21 ALT (21 - 72 U/L) 25 Alkaline Phosphatase (< 127 U/L) 63 Troponin I (<0.11 ng/ml) < 0.01 Total Protein (6.3 - 8.2 g/dL) 6.1 L Albumin (3.5 - 5.0 g/dL) 3.6 Globulin (1.9 - 4.2 gm/dL) 2.5 Albumin/Globulin Ratio (1.1 - 2.2 %) 1.4 Hematology CBC w Diff MAN DIFF ORDERED WBC (4.8 - 10.8 /CUMM) 10.1 RBC (4.70 - 6.10 /CUMM) 4.58 L Hgb (14.0 - 18.0 G/DL) 13.5 L Hct (42 - 52 %) 41.4 L MCV (80.0 - 94.0 FL) 90.3 MCH (27.0 - 31.0 PG) 29.4 RDW (11.5 - 14.5 %) 16.5 H Plt Count (130 - 400 /CUMM) 242 MPV (7.4 - 10.4 FL) 8.7 Gran % (42.2 - 75.2 %) 85.8 H Lymphocytes % (20.5 - 51.1 %) 7.1 L Monocytes % (1.7 - 9.3 %) 3.7 Eosinophils % (0 - 5 %) 3.1 Basophils % (0.0 - 2.0 %) 0.3 Absolute Granulocytes (1.4 - 6.5 /CUMM) 8.6 H Absolute Lymphocytes (1.2 - 3.4 /CUMM) 0.7 L Absolute Monocytes (0.10 - 0.60 /CUMM) 0.4 Absolute Eosinophils (0.0 - 0.7 /CUMM) 0.3 Absolute Basophils (0.0 - 0.2 /CUMM) 0 Platelet Estimate (ADEQUATE) ADEQUATE Normocytic RBCs VERIFIED Normochromic RBCs VERIFIED PUBS MCHC (33.0 - 37.0 G/DL) 32.6 L Chest x-ray showed no acute infiltrates case was discussed with the resident
[2016-08-16 23:22] VITALS: BP 118/68
--- NOTE | 2016-08-17 | NUR ---
STAT EKG COMPLETED PER ORDERS. LEON LAZO NOTIFIED AND UP TO SEE REPORT. WILL MONITOR.
[2016-08-17 06:07] VITALS: BP 130/62
--- NOTE | 2016-08-17 07:18 | PN- Housestaff ---
Subjective Follow-up For: COPD exacerbation Subjective: Patient seen and examined. He is seen sitting upright in bed resting comfortably maintained on supplemental oxygen via nasal cannula. He appears to be in no acute distress. He reports no increased shortness of breath and is quite comfortable on the current supply of oxygen. He does however admit to persistent chest/shoulder pain that is more painful when he moves or presses on the areas. Otherwise he says he feels great and would like to stay another day as to avoid readmission. Additionally he denies any headache, fever, chills, palpitations, nausea, vomiting, diarrhea. No overnight events reported. Review of Systems Constitutional: Reports: see HPI. Objective Last 24 Hrs of Vital Signs/I&O Vital Signs Date Time Temp Pulse Resp B/P Pulse O2 O2 Flow FiO2 Ox Delivery Rate 08/17 0800 94 Nasal 2.0L Cannula 08/17 0740 94 Nasal 2.0L Cannula 08/17 0607 98.3 68 22 130/62 95 Nasal 2.0L Cannula 08/17 0000 Nasal 2.0L Cannula 08/16 2322 97.9 68 18 118/68 95 Nasal 2.0L Cannula 08/16 1824 Nasal 2.0L Cannula 08/16 1635 98.2 71 18 104/54 91 Nasal 2.0L Cannula 08/16 1600 Nasal 2.0L Cannula 08/16 1344 98.9 69 20 112/59 94 Nasal 2.0L Cannula 08/16 1204 98.4 70 24 107/57 98 Nasal 2.0L Cannula 08/16 1106 96 Nasal 2.0L Cannula 08/16 1049 96 Nasal 2.0L Cannula 08/16 0955 99.7 84 24 93/57 96 Nasal 2.0L Cannula Intake & Output 08/17 1600 08/17 0800 08/17 0000 Intake Total Output Total 400 Balance -400 Output, Urine 400 Patient 104.326 kg Weight Physical Exam General Appearance: Alert, Oriented X3, Cooperative, No Acute Distress Other Physical Findings: General -well-developed, well-nourished elderly man in no acute distress HEENT - NCAT, PERRL, EOMI, anicteric sclera Cardio - S1, S2 w/o murmurs/gallops/rubs Resp -wheezing and rhonchi heard in all lung [place], no crackles GI - soft, nontender, nondistended, bowel sounds present Neuro - Awake and alert, CN II - XII grossly intact Extremities - no edema, pulses intact Current Medications: Current Medications Sig/Luis Start time Last Medication Dose Route Stop Time Status Admin Acetaminophen 1,000 MG Q6P PRN 08/16 1930 AC IV Acetaminophen 325 MG Q6P PRN 08/16 1430 AC PO Albuterol Sulfate 3 ML EVERY 4 HRS/AWAKE 08/16 2000 AC 08/17 INH 0738 Albuterol Sulfate 3 ML Q4P PRN 08/16 1445 AC INH Albuterol Sulfate 3 ML ONCE ONE 08/16 1100 DC 08/16 INH 08/16 1101 1049 Allopurinol 300 MG DAILY 08/17 1000 AC PO Amiodarone HCl 200 MG DAILY 08/17 1000 AC PO Apixaban 5 MG BID 08/16 2200 AC 08/16 PO 2150 Atorvastatin Calcium 40 MG QPM 08/16 2200 AC 08/16 PO 2150 Azithromycin 500 MG DAILY 08/17 1000 AC Dextrose/Water 250 ML IV Azithromycin 500 MG ONCE ONE 08/16 1045 DC 08/16 Dextrose/Water 250 ML IV 08/16 1144 1103 Budesonide/ 2 PUF BID 08/16 2200 AC 08/16 Formoterol Fumarate INH 2151 Ceftriaxone Sodium 1,000 MG ONCE ONE 08/16 1045 DC 08/16 IV 08/16 1046 1050 Ceftriaxone Sodium 0 .STK-MED ONE 08/16 1044 DC .ROUTE Digoxin 0.125 MG DAILY 08/17 1000 AC PO Diltiazem HCl 120 MG DAILY 08/17 1000 AC PO Heparin Sodium 5,000 UNIT Q8 08/16 2200 CAN (Porcine) SC Ibuprofen 600 MG Q6P PRN 08/16 1430 DC PO Ipratropium [place] 2.5 ML ONCE ONE 08/16 1100 DC 08/16 INH 08/16 1101 1049 Methylprednisolone 40 MG Q8 08/17 0600 AC 08/17 IV 0546 Methylprednisolone 125 MG ONCE ONE 08/16 1045 DC 08/16 IV 08/16 1046 1045 Methylprednisolone 0 .STK-MED ONE 08/16 1044 DC .ROUTE Omeprazole 40 MG DAILY AC 08/17 0700 AC 08/17 PO 0546 Oxycodone/ 1 TAB Q8P PRN 08/16 1445 AC Acetaminophen PO Polyethylene Glycol 17 GM AT BEDTIME PRN 08/16 1445 AC PO Sodium Chloride 1,000 ML Q20H 08/16 1615 AC 08/16 IV 08/17 1214 1800 Spironolactone 25 MG DAILY 08/17 1000 CAN PO Tiotropium [place] 1 PUF DAILY 08/16 1745 AC 08/16 INH 2151 Last 24 Hrs of Lab/[place] Results Last 24 Hrs of Labs/Mics: Laboratory Tests 08/17/16 0610: Anion Gap 8, Estimated GFR 46 L, BUN/Creatinine Ratio 24.0, Troponin I < 0.01 08/17/16 0150: Urine Color YEL, Urine Clarity CLEAR, Urine pH 6.0, Ur Specific [place] 1.020, Urine Protein NEG, Urine Ketones NEG, Urine Nitrite NEG, Urine Bilirubin NEG, Urine Urobilinogen 0.2, Ur Leukocyte Esterase NEG, Ur Microscopic EXAM NOT REQUIRED, Urine Hemoglobin NEG, Urine Glucose NEG 08/16/16 2340: Troponin I < 0.01 08/16/16 1123: Anion Gap 9, Estimated GFR 46 L, BUN/Creatinine Ratio 22.7, Glucose 98, Calcium 9.9, Total Bilirubin 0.7, AST 21, ALT 25, Alkaline Phosphatase 63, Troponin I < 0.01, Total Protein 6.1 L, Albumin 3.6, Globulin 2.5, Albumin/Globulin Ratio 1.4 08/16/16 1035: Hemoglobin A1c Pending, CBC w Diff MAN DIFF ORDERED, RBC 4.58 L, MCV 90.3, MCH 29.4, RDW 16.5 H, MPV 8.7, Gran % 85.8 H, Lymphocytes % 7.1 L, Monocytes % 3.7, Eosinophils % 3.1, Basophils % 0.3, Absolute Granulocytes 8.6 H, Absolute Lymphocytes 0.7 L, Absolute Monocytes 0.4, Absolute Eosinophils 0.3, Absolute Basophils 0, Platelet Estimate ADEQUATE, Normocytic RBCs VERIFIED, Normochromic RBCs VERIFIED, PUBS MCHC 32.6 L Microbiology 08/16 1899 LOWER RESP: Respiratory Culture - RES 08/16 1899 LOWER RESP: Gram Stain - RES 08/16 1045 BLOOD: Blood Culture - RECD 08/16 103 BLOOD: Blood Culture - RECD Assessment/Plan Assessment: Patient reports feeling well and that he is getting enough air while on his home supplemental oxygen regimen of 2.0 L via nasal cannula. He does complain of persistent cough that is reportedly baseline. He also admits to persistent right-sided chest/shoulder pain that is reproducible with palpation or movement. He admits to feeling well but does not want to be discharged to early as to avoid readmission. He is to be detained on intravenous steroids and antibiotics and considered for discharge over the weekend. Acute on chronic COPD exacerbation: History of COPD on 2.0 L home O2. Patient of Dr. Bello. -Supplemental oxygen, maintain >92% -[facility] neb treatments -Azithromycin 500 mg IV daily -Methylprednisolone 40 mg IV every 8 hours -Guaifenesin 600 mg by mouth twice a day -Zofran 4 mg by mouth when necessary for nausea -Pulmonology consult History of Systolic congestive heart failure: Last echocardiogram dated 04/26/15 demonstrated an EF of 35-40% with global hypokinesis. -Strict I's and O's -Trend troponin/EKGs -BNP -Digoxin 125mcg by mouth daily -Spironolactone 25 mg by mouth daily -2 g sodium restriction History of atrial fibrillation: EKG on admission demonstrated normal sinus rhythm with nonspecific T-wave inversions and repolarization abnormality. -Eliquis 5 mg by mouth twice a day -Cardizem 120mg PO Daily -Amiodarone 200 mg by mouth daily Acute kidney injury: Baseline creatinine 1.1-1.2 as of 07/03/16. Elevated to 1.5 on admission. -Normal Saline @ 50mL/hr -Hold lisinopril -Follow BEP Hyperlipidemia-stable, continue atorvastatin Hypertension - stable, lisinopril held as above for acute kidney injury Gout - stable, continue allopurinol follow up uric acid IDDM-reportedly stable, no longer on insulin, Accu-Cheks 3 times a day before meals/at bedtime Pain Plan: -Percocet 1 tab by mouth every 8 hours for pain 7-10 Diet-consistent carbohydrate with 2 g sodium or stricture DVT PPx -on Eliquis Code Status - DNR/DNI Problem List: 1. COPD 2. ACUTE RENAL FAILURE Pain Ratin Pain Location: right chest/shoulder Pain Goal: Pain 4 or less Pain Plan: As noted in plan Tomorrow's Labs & Rationales: CBC - copd exacerbation BEP - acute kidney injury Consulting Request: Consulting Specialty: Pulmonary Disease
--- NOTE | 2016-08-17 07:40 | NUR ---
LATE ENTRY: PT REPORTED TO THIS RN THAT HE TOOK OUT HIS DENTURES AND PLACED THEM ON HIS DINNER TRAY. HE FORGOT TO TAKE THEM OFF AND TRAY WAS REMOVED BY DIETARY. DIETARY NOTICED THE TEETH, FOUND WHOM THEY BELONGED TO AND RETURNED TO PT IN A PLASTIC BAGGIE. PT SUPPLIED WITH DENTURE CUP AND EFFORDENT TO KEEP DENTURES IN.
--- NOTE | 2016-08-17 07:55 | PN- Pulmonary ---
Subjective HPI/Critical Care Issues: Patient shortness of breath is improved Objective Current Medications: Current Medications Sig/Luis Start time Last Medication Dose Route Stop Time Status Admin Acetaminophen 1,000 MG Q6P PRN 08/16 1930 AC IV Acetaminophen 325 MG Q6P PRN 08/16 1430 AC PO Albuterol Sulfate 3 ML EVERY 4 HRS/AWAKE 08/16 2000 AC 08/17 INH 0738 Albuterol Sulfate 3 ML Q4P PRN 08/16 1445 AC INH Albuterol Sulfate 3 ML ONCE ONE 08/16 1100 DC 08/16 INH 08/16 1101 1049 Allopurinol 300 MG DAILY 08/17 1000 AC PO Amiodarone HCl 200 MG DAILY 08/17 1000 AC PO Apixaban 5 MG BID 08/16 2200 AC 08/16 PO 2150 Atorvastatin Calcium 40 MG QPM 08/16 2200 AC 08/16 PO 2150 Azithromycin 500 MG DAILY 08/17 1000 AC Dextrose/Water 250 ML IV Azithromycin 500 MG ONCE ONE 08/16 1045 DC 08/16 Dextrose/Water 250 ML IV 08/16 1144 1103 Budesonide/ 2 PUF BID 08/16 2200 AC 08/16 Formoterol Fumarate INH 2151 Ceftriaxone Sodium 1,000 MG ONCE ONE 08/16 1045 DC 08/16 IV 08/16 1046 1050 Ceftriaxone Sodium 0 .STK-MED ONE 08/16 1044 DC .ROUTE Digoxin 0.125 MG DAILY 08/17 1000 AC PO Diltiazem HCl 120 MG DAILY 08/17 1000 AC PO Heparin Sodium 5,000 UNIT Q8 08/16 2200 CAN (Porcine) SC Ibuprofen 600 MG Q6P PRN 08/16 1430 DC PO Ipratropium [place] 2.5 ML ONCE ONE 08/16 1100 DC 08/16 INH 08/16 1101 1049 Methylprednisolone 40 MG Q8 08/17 0600 AC 08/17 IV 0546 Methylprednisolone 125 MG ONCE ONE 08/16 1045 DC 08/16 IV 08/16 1046 1045 Methylprednisolone 0 .STK-MED ONE 08/16 1044 DC .ROUTE Omeprazole 40 MG DAILY AC 08/17 0700 AC 08/17 PO 0546 Oxycodone/ 1 TAB Q8P PRN 08/16 1445 AC Acetaminophen PO Polyethylene Glycol 17 GM AT BEDTIME PRN 08/16 1445 AC PO Sodium Chloride 1,000 ML Q20H 08/16 1615 AC 08/16 IV 08/17 1214 1800 Spironolactone 25 MG DAILY 08/17 1000 CAN PO Tiotropium [place] 1 PUF DAILY 08/16 1745 AC 08/16 INH 2151 Vital Signs & I&O Last 24 Hrs of Vitals and I&O: Vital Signs Date Time Temp Pulse Resp B/P Pulse O2 O2 Flow FiO2 Ox Delivery Rate 08/17 0740 94 Nasal 2.0L Cannula 08/17 0607 98.3 68 22 130/62 95 Nasal 2.0L Cannula 08/17 0000 Nasal 2.0L Cannula 08/16 2322 97.9 68 18 118/68 95 Nasal 2.0L Cannula 08/16 1824 Nasal 2.0L Cannula 08/16 1635 98.2 71 18 104/54 91 Nasal 2.0L Cannula 08/16 1600 Nasal 2.0L Cannula 08/16 1344 98.9 69 20 112/59 94 Nasal 2.0L Cannula 08/16 1204 98.4 70 24 107/57 98 Nasal 2.0L Cannula 08/16 1106 96 Nasal 2.0L Cannula 08/16 1049 96 Nasal 2.0L Cannula 08/16 0955 99.7 84 24 93/57 96 Nasal 2.0L Cannula Intake & Output 08/17 0800 08/17 0000 08/16 1600 Intake Total 750 Output Total 400 Balance -400 750 Intake, IV 250 Intake, Oral 500 Output, Urine 400 Patient 230 lb 230 lb Weight He is afebrile oxygen saturation 2 L 94% exam of his chest Impression/Plan Impression/Plan Impression/Plan: 71-year-old gentleman with severe COPD is improved. BETO Solu-Medrol later today transition to oral prednisone with plan for discharge tomorrow Recommendations: Transition to oral prednisone later today with expectation for discharge tomorrow.
--- NOTE | 2016-08-17 10:30 | PN- Att Addend ---
Attending Addendum Attending Brief Note Patient feeling better today, comfortable in bed. Appreciate pulmonary and cardiology's input and recommendations. His vital signs are stable his O2 saturations are okay on oxygen. He still has a few wheezes on auscultation but moving air. We'll continue observation and 24 hours continue the IV steroids 24 more hours if stable in a.m. then we'll start disposition plans. Current Medications Sig/Luis Start time Last Medication Dose Route Stop Time Status Admin Acetaminophen 1,000 MG Q6P PRN 08/16 1930 AC IV Acetaminophen 325 MG Q6P PRN 08/16 1430 AC PO Albuterol Sulfate 3 ML EVERY 4 HRS/AWAKE 08/16 2000 AC 08/17 INH 0738 Albuterol Sulfate 3 ML Q4P PRN 08/16 1445 AC INH Albuterol Sulfate 3 ML ONCE ONE 08/16 1100 DC 08/16 INH 08/16 1101 1049 Allopurinol 300 MG DAILY 08/17 1000 AC 08/17 PO 0936 Amiodarone HCl 200 MG DAILY 08/17 1000 AC 08/17 PO 0937 Apixaban 5 MG BID 08/16 2200 AC 08/17 PO 0937 Atorvastatin Calcium 40 MG QPM 08/16 2200 AC 08/16 PO 2150 Azithromycin 500 MG DAILY 08/17 1000 AC 08/17 Dextrose/Water 250 ML IV 0937 Azithromycin 500 MG ONCE ONE 08/16 1045 DC 08/16 Dextrose/Water 250 ML IV 08/16 1144 1103 Budesonide/ 2 PUF BID 08/16 2200 AC 08/17 Formoterol Fumarate INH 0937 Ceftriaxone Sodium 1,000 MG ONCE ONE 08/16 1045 DC 08/16 IV 08/16 1046 1050 Ceftriaxone Sodium 0 .STK-MED ONE 08/16 1044 DC .ROUTE Digoxin 0.125 MG DAILY 08/17 1000 AC 08/17 PO 0936 Diltiazem HCl 120 MG DAILY 08/17 1000 AC 08/17 PO 0937 Heparin Sodium 5,000 UNIT Q8 08/16 2200 CAN (Porcine) SC Ibuprofen 600 MG Q6P PRN 08/16 1430 DC PO Ipratropium [place] 2.5 ML ONCE ONE 08/16 1100 DC 08/16 INH 08/16 1101 1049 Methylprednisolone 40 MG Q8 08/17 0600 DC 08/17 IV 0546 Methylprednisolone 125 MG ONCE ONE 08/16 1045 DC 08/16 IV 08/16 1046 1045 Methylprednisolone 0 .STK-MED ONE 08/16 1044 DC .ROUTE Omeprazole 40 MG DAILY AC 08/17 0700 AC 08/17 PO 0546 Oxycodone/ 1 TAB Q8P PRN 08/16 1445 AC Acetaminophen PO Polyethylene Glycol 17 GM AT BEDTIME PRN 08/16 1445 AC PO Prednisone 40 MG DAILY 08/17 1000 AC 08/17 PO 1003 Sodium Chloride 1,000 ML Q20H 08/16 1615 AC 08/16 IV 08/17 1214 1800 Spironolactone 25 MG DAILY 08/17 1000 CAN PO Tiotropium [place] 1 PUF DAILY 08/16 1745 AC 08/17 INH 0937 Microbiology Date/Time Procedure - Status Source Growth 08/16 1900 Respiratory Culture - RES LOWER RESP 08/16 1900 Gram Stain - RES LOWER RESP 08/16 1045 Blood Culture - RECD BLOOD 08/16 1035 Blood Culture - RECD BLOOD Vital Signs Date Time Temp Pulse Resp B/P Pulse O2 O2 Flow FiO2 Ox Delivery Rate 08/17 0936 132/78 08/17 0800 94 Nasal 2.0L Cannula 08/17 0740 94 Nasal 2.0L Cannula 08/17 0607 98.3 68 22 130/62 95 Nasal 2.0L Cannula
[2016-08-17] MEDS ORDERED: AZITHROMYCIN250 M1 PO ×2 (14:39→15:16)
[2016-08-17] MEDS ORDERED: PREDNISONE20 M1 PO ×2 (14:39→15:16)
--- NOTE | 2016-08-17 14:42 | Patient Discharge Instructions ---
Discharge Instructions General Discharge Information Special Instructions: Take prednisone and azithromycin as directed. Follow up with Dr. Lopez, Dr. Bashir, and Dr. Schneider after discharge. Acute Coronary Syndrome Inclusion Criteria At DC or during hospital stay patient has or had the following: ACS DIAGNOSIS No Discharge Core Measures Meds if any: Prescribed or Continued at Discharge Meds if any: NOT Prescribed or Continued at Discharge Congestive Heart Failure Inclusion Criteria At DC or during hospital stay patient has or had the following: CHF DIAGNOSIS No Discharge Core Measures Meds if any: Prescribed or Continued at Discharge Meds if any: NOT Prescribed or Continued at Discharge Cerebrovascular accident Inclusion Criteria At DC or during hospital stay patient has or had the following: CVA/TIA Diagnosis No Discharge Core Measures Meds if any: Prescribed or Continued at Discharge Meds if any: NOT Prescribed or Continued at Discharge Venous thromboembolism Inclusion Criteria VTE Diagnosis No VTE Type NONE VTE Confirmed by (Test) NONE Discharge Core Measures - Per Current guidelines, there needs to be overlap - treatment for the first 5 days of Warfarin therapy. - If discharged on Warfarin prior to 5 days of - overlap therapy, the patient will need to be - assessed for post discharge needs including - *Post discharge parental anticoagulation - *Warfarin and/or parental anticoagulation education - *Follow up date to check INR post discharge At least 5 days overlap therapy as Inpatient No Meds if any: Prescribed or Continued at Discharge Note: Overlap Therapy is Warfarin and Anticoagulant Meds if any: NOT Prescribed or Continued at Discharge
[2016-08-17 15:52] VITALS: BP 130/60
[2016-08-17 23:48] VITALS: BP 110/54
--- NOTE | 2016-08-18 06:55 | PN- Housestaff ---
Subjective Follow-up For: 1. copd exacerbation Subjective: Mr. Briones was comfortable this morning when I saw him. Vitals remained stable overnight. He was afebrile. He does not have any difficulty breathing, reports improvement compared to yesterday. Reports pain in his bilateral shoulder joints, attributes it to his rheumatological problems. Review of Systems Constitutional: Reports: see HPI. Objective Last 24 Hrs of Vital Signs/I&O Vital Signs Date Time Temp Pulse Resp B/P Pulse O2 O2 Flow FiO2 Ox Delivery Rate 08/18 0000 96 Nasal 2.0L Cannula 08/17 2348 98.0 65 20 110/54 96 Nasal 2.0L Cannula 08/17 2139 Nasal 2.0L Cannula 08/17 1711 90 Room Air 08/17 1600 Nasal 2.0L Cannula 08/17 1552 98.3 64 22 130/60 95 Nasal 2.0L Cannula 08/17 0936 132/78 08/17 0800 94 Nasal 2.0L Cannula 08/17 0740 94 Nasal 2.0L Cannula Intake & Output 08/18 0800 08/18 0000 08/17 1600 Intake Total 763 466 2710 Output Total 750 Balance 120 120 650 Intake, IV 500 Intake, Oral 120 120 900 Number 1 0 Bowel Movements Output, Urine 750 Physical Exam General Appearance: No Acute Distress Other Physical Findings: General Exam: AAOx3, No acute distress, Skin: No rashes, no breakdown HEENT: PERRLA, EOMI Neck: Supple, No JVD No cervical lymphadenopathy CVS: Reg Rate, Normal S1,S2, No MGR Resp: Decreased air entry, bilateral rhonchi Abdomen: Soft, No tenderness, Normal Bowel Sounds Neuro: Normal Speech, Strength 5/5 b/l x 4 extremities, Sensation intact, CN III -XII NL, Reflexes 2+ Extremities: No cyanosis, pedal edema Current Medications: Current Medications Sig/Luis Start time Last Medication Dose Route Stop Time Status Admin Acetaminophen 1,000 MG Q6P PRN 08/16 1930 AC IV Acetaminophen 325 MG Q6P PRN 08/16 1430 AC 08/18 PO 0550 Albuterol Sulfate 3 ML EVERY 4 HRS/AWAKE 08/16 1999 AC 08/17 INH 2011 Albuterol Sulfate 3 ML Q4P PRN 08/16 1445 AC INH Allopurinol 300 MG DAILY 08/17 1000 AC 08/17 PO 0936 Amiodarone HCl 200 MG DAILY 08/17 1000 AC 08/17 PO 0937 Apixaban 5 MG BID 08/16 2200 AC 08/17 PO 2142 Atorvastatin Calcium 40 MG QPM 08/16 2200 AC 08/17 PO 2142 Azithromycin 500 MG DAILY 08/17 1000 AC 08/17 Dextrose/Water 250 ML IV 0937 Budesonide/ 2 PUF BID 08/16 2200 AC 08/17 Formoterol Fumarate INH 2142 Digoxin 0.125 MG DAILY 08/17 1000 AC 08/17 PO 0936 Diltiazem HCl 120 MG DAILY 08/17 1000 AC 08/17 PO 0937 Insulin Aspart 0 TIDAC 08/17 1215 AC 08/17 SC 1656 Methylprednisolone 40 MG Q8 08/17 0600 DC 08/17 IV 0546 Omeprazole 40 MG DAILY AC 08/17 0700 AC 08/18 PO 0543 Oxycodone/ 1 TAB Q8P PRN 08/16 1445 AC Acetaminophen PO Patient Medication 1 ED .STK-MED ONE 08/17 1257 DC Teaching ED 08/17 1258 Polyethylene Glycol 17 GM AT BEDTIME PRN 08/16 1445 AC PO Prednisone 40 MG DAILY 08/17 1000 AC 08/17 PO 1003 Sodium Chloride 1,000 ML Q20H 08/16 1615 DC 08/16 IV 08/17 1214 1800 Tiotropium [place] 1 PUF DAILY 08/16 1745 AC 08/17 INH 0937 Assessment/Plan Assessment: He is an older man with a past medical history of COPD on 2 L home oxygen, atrial fibrillation on in [place] before meals, CHF, diabetes is being evaluated for worsening shortness of breath likely from COPD exacerbation. Below is the problem list and plan: #1Acute on chronic COPD exacerbation: History of COPD on 2.[address] Bello advising -Supplemental oxygen, maintain >92% -[facility] neb treatments -Azithromycin 500 mg IV daily. Could be changed to by mouth azithromycin in the morning. -Prednisone taper. -Guaifenesin 600 mg by mouth twice a day -Zofran 4 mg by mouth when necessary for nausea -Pulmonology consult History of Systolic congestive heart failure: Last echocardiogram dated 04/26/15 demonstrated an EF of 35-40% with global hypokinesis. -Strict I's and O's -Trend troponin/EKGs -BNP -Digoxin 125mcg by mouth daily -Spironolactone 25 mg by mouth daily -2 g sodium restriction History of atrial fibrillation: EKG on admission demonstrated normal sinus rhythm with nonspecific T-wave inversions and repolarization abnormality. -Eliquis 5 mg by mouth twice a day -Cardizem 120mg PO Daily -Amiodarone 200 mg by mouth daily Acute kidney injury: Baseline creatinine 1.1-1.2 as of 07/03/16. Elevated to 1.5. -Encourage increased by mouth intake of fluids. -Hold lisinopril -Follow BEP Hyperlipidemia-stable, continue atorvastatin Hypertension - stable, lisinopril held as above for acute kidney injury Gout - stable, continue allopurinol follow up uric acid IDDM-reportedly stable, no longer on insulin, Accu-Cheks 3 times a day before meals/at bedtime Pain Plan: -Percocet 1 tab by mouth every 8 hours for pain 7-10 Diet-consistent carbohydrate with 2 g sodium DVT PPx -on Eliquis Code Status - DNR/DNI Problem List: 1. COPD exacerbation Pain Ratin Pain Location: Bilateral shoulder pain Pain Goal: Pain 4 or less Pain Plan: Tylenol when necessary, Percocet Tomorrow's Labs & Rationales: Basic electrolyte panel Consulting Request: Consulting Specialty: Pulmonary Disease
[2016-08-18 07:54] VITALS: BP 118/60
[2016-08-18 09:14] LABS: ABSOLUTE BASOPHIL COUNT 0 /CUMM (0.0-0.2); ABSOLUTE EOSINOPHIL COUNT 0 /CUMM (0.0-0.7); ABSOLUTE GRANULOCYTE CT 11.5 /CUMM (1.4-6.5); ABSOLUTE LYMPH COUNT 0.5 /CUMM (1.2-3.4); ABSOLUTE MONOCYTE COUNT 0.9 /CUMM (0.10-0.60); BASOPHIL % 0 % (0.0-2.0); EOSINOPHIL % 0.1 % (0-5); GRANULOCYTE % 89.1 % (42.2-75.2); MEAN CORPUSCULAR HGB CONC 33.3 G/DL (33.0-37.0); MEAN CORPUSCULAR VOLUME 90.1 FL (80.0-94.0); PLATELET COUNT 184 /CUMM (130-400); RBC DISTRIBUTION WIDTH 16.8 % (11.5-14.5); RED BLOOD CELL CT 3.66 /CUMM (4.70-6.10); WHITE BLOOD CELL COUNT 12.9 /CUMM (4.8-10.8)
[2016-08-18 09:51] VITALS: BP 138/46
--- NOTE | 2016-08-18 10:36 | PN- Pulmonary ---
Subjective HPI/Critical Care Issues: Patient feels well shortness of breath is back at baseline Objective Current Medications: Current Medications Sig/Luis Start time Last Medication Dose Route Stop Time Status Admin Acetaminophen 1,000 MG Q6P PRN 08/16 1930 AC IV Acetaminophen 325 MG Q6P PRN 08/16 1430 AC 08/18 PO 0550 Albuterol Sulfate 3 ML EVERY 4 HRS/AWAKE 08/16 2000 AC 08/18 INH 0753 Albuterol Sulfate 3 ML Q4P PRN 08/16 1445 AC INH Allopurinol 300 MG DAILY 08/17 1000 AC 08/18 PO 0952 Amiodarone HCl 200 MG DAILY 08/17 1000 AC 08/18 PO 0951 Apixaban 5 MG BID 08/16 2200 AC 08/18 PO 0951 Atorvastatin Calcium 40 MG QPM 08/16 2200 AC 08/17 PO 2142 Azithromycin 500 MG DAILY 08/17 1000 AC 08/18 Dextrose/Water 250 ML IV 0946 Budesonide/ 2 PUF BID 08/16 2200 AC 08/18 Formoterol Fumarate INH 0946 Digoxin 0.125 MG DAILY 08/17 1000 AC 08/18 PO 0951 Diltiazem HCl 120 MG DAILY 08/17 1000 AC 08/18 PO 0951 Insulin Aspart 0 TIDAC 08/17 1215 AC 08/17 SC 1656 Omeprazole 40 MG DAILY AC 08/17 0700 AC 08/18 PO 0543 Oxycodone/ 1 TAB Q8P PRN 08/16 1445 AC Acetaminophen PO Patient Medication 1 ED .STK-MED ONE 08/17 1257 FL Teaching ED 08/17 1258 Polyethylene Glycol 17 GM AT BEDTIME PRN 08/16 1445 AC PO Prednisone 40 MG DAILY 08/17 1000 AC 08/18 PO 0952 Sodium Chloride 1,000 ML Q20H 08/16 1615 DC 08/16 IV 08/17 1214 1800 Tiotropium [place] 1 PUF DAILY 08/16 1745 AC 08/18 INH 0946 Vital Signs & I&O Last 24 Hrs of Vitals and I&O: Vital Signs Date Time Temp Pulse Resp B/P Pulse O2 O2 Flow FiO2 Ox Delivery Rate 08/18 0951 68 138/46 08/18 0951 68 138/46 08/18 0800 100 Nasal 2.0L Cannula 08/18 0756 91 Nasal 2.0L Cannula 08/18 0754 97.7 55 20 118/60 96 Nasal 2.0L Cannula 08/18 0000 96 Nasal 2.0L Cannula 08/17 2348 98.0 65 20 110/54 96 Nasal 2.0L Cannula 08/17 2139 Nasal 2.0L Cannula 08/17 1711 90 Room Air 08/17 1600 Nasal 2.0L Cannula 08/17 1552 98.3 64 22 130/60 95 Nasal 2.0L Cannula Intake & Output 08/18 1600 08/18 0800 08/18 0000 Intake Total 120 120 Output Total Balance 120 120 Intake, Oral 120 120 Number 1 Bowel Movements Impression/Plan Impression/Plan Impression/Plan: 71-year-old gentleman with severe COPD is improved. Recommendations: Slow prednisone taper Taper FiO2 outpatient follow-up
[2016-08-18] MEDS ORDERED: PREDNISONE10 M2 PO (14:05)
[2016-08-18] MEDS ORDERED: AZITHROMYCIN250 M1 PO (14:11)
--- NOTE | 2016-08-18 15:48 | PN- Att Addend ---
Attending Addendum Attending Brief Note Patient feeling better, less short of breath still complains of this right shoulder pain I told him if the pain continues to get some images as an outpatient and maybe an orthopedic referral in the meantime will let the patient go home today, to continue his oxygen his medications and tapering of his steroids to the CMR I will follow the patient in the office next week. Current Medications Sig/Luis Start time Last Medication Dose Route Stop Time Status Admin Acetaminophen 325 MG .STK-MED ONE 08/18 0547 DC PO 08/18 0548 Acetaminophen 1,000 MG Q6P PRN 08/16 1930 AC IV Acetaminophen 325 MG Q6P PRN 08/16 1430 AC 08/18 PO 0550 Albuterol Sulfate 3 ML EVERY 4 HRS/AWAKE 08/16 2000 AC 08/18 INH 1119 Albuterol Sulfate 3 ML Q4P PRN 08/16 1445 AC INH Allopurinol 300 MG DAILY 08/17 1000 AC 08/18 PO 0952 Amiodarone HCl 200 MG DAILY 08/17 1000 AC 08/18 PO 0951 Apixaban 5 MG BID 08/16 2200 AC 08/18 PO 0951 Atorvastatin Calcium 40 MG QPM 08/16 2200 AC 08/17 PO 2142 Azithromycin 500 MG DAILY 08/17 1000 AC 08/18 Dextrose/Water 250 ML IV 0946 Budesonide/ 2 PUF BID 08/16 2200 AC 08/18 Formoterol Fumarate INH 0946 Digoxin 0.125 MG DAILY 08/17 1000 AC 08/18 PO 0951 Diltiazem HCl 120 MG DAILY 08/17 1000 AC 08/18 PO 0951 Insulin Aspart 0 TIDAC 08/17 1215 AC 08/17 SC 1656 Omeprazole 40 MG DAILY AC 08/17 0700 AC 08/18 PO 0543 Oxycodone/ 1 TAB Q8P PRN 08/16 1445 AC Acetaminophen PO Polyethylene Glycol 17 GM AT BEDTIME PRN 08/16 1445 AC PO Prednisone 30 MG DAILY 08/19 1000 AC PO Prednisone 40 MG DAILY 08/17 1000 DC 08/18 PO 0952 Tiotropium [place] 1 PUF DAILY 08/16 1745 AC 08/18 INH 0946 Laboratory Tests 08/18/16 0630: Anion Gap 8, Estimated GFR 46 L, BUN/Creatinine Ratio 27.3 H, CBC w Diff NO MAN DIFF REQ, RBC 3.66 L, MCV 90.1, MCH 30.0, RDW 16.8 H, MPV 9.0, Gran % 89.1 H, Lymphocytes % 3.7 L, Monocytes % 7.1, Eosinophils % 0.1, Basophils % 0 L, Absolute Granulocytes 11.5 H, Absolute Lymphocytes 0.5 L, Absolute Monocytes 0.9 H, Absolute Eosinophils 0, Absolute Basophils 0, PUBS MCHC 33.3 Vital Signs Date Time Temp Pulse Resp B/P Pulse O2 O2 Flow FiO2 Ox Delivery Rate 08/18 0951 68 138/46 08/18 0951 68 138/46 08/18 0800 100 Nasal 2.0L Cannula 08/18 0756 91 Nasal 2.0L Cannula 08/18 0754 97.7 55 20 118/60 96 Nasal 2.0L Cannula Intake & Output 08/18 1600 Intake Total 720 Output Total 500 Balance 220 Intake, Oral 720 Output, Urine 500
== END 2016-08-18 16:02 ==
LOC: ENRESERVTM → ENRESERVDT → ERH 09:37 → ENPENDDIS 13:20 → 2NB 13:20 → ERHI 13:20 → 2NB 15:52
PROVIDERS: Emergency Medicine; Internal Medicine Interventional Cardiology; ADMIT Internal Medicine
DX: J44.1 Chronic obstructive pulmonary disease with (acute) exacerbation (principal); I50.22 Chronic systolic (congestive) heart failure; I48.91 Unspecified atrial fibrillation; Z79.01 Long term (current) use of anticoagulants; N17.9 Acute kidney failure, unspecified; E78.5 Hyperlipidemia, unspecified; K21.9 Gastro-esophageal reflux disease without esophagitis; I12.9 Hypertensive chronic kidney disease with stage 1 through stage 4 chronic kidney disease, or unspecified chronic kidney disease; E11.22 Type 2 diabetes mellitus with diabetic chronic kidney disease; N18.9 Chronic kidney disease, unspecified
CPT/HCPCS: 1263; 1328; 1425; 1530; 1748; 36415; 81003; 82436; 87040; 87070; 87071; 87804; 87804-59; 93005; 93010; 96374; 96375; G0378; J0131; J0456; J0696; J1644; J2920; J2930; J3490; J7060; J7512

== ENCOUNTER 2016-12-18 07:37 | Inpatient (IN) | payer OTHER ==
[~2016-12-18] VITALS: Ht 190.5 cm; Wt 85.7 kg
[~2016-12-18 07:37] MED LIST changes: +ALDACTONE25 MG PO; +PREDNISONE20 M1 PO
--- NOTE | 2016-12-18 07:57 | NUR ---
71 YEAR OLD MALE STATES THAT HE HAS HISTORY OF COPD AND IS O2 DEPENDENT AT 2L. STATES THAT HE HAS BEEN HAVING INCREASED SOB X 2 DAYS AND COUGH PRODUCTIVE OF GREEN SPUTUM. TEMP 99.7, O2 SAT 94 % ON 2L. SOB INCREASES ON EXERTION. ALSO STATES THAT LAST PM HE HAD AN EPISODE OF NON RADIATING MID CP THAT LASTED ABOUT 20 MINUTES AND WENT AWAY. DENIES CP AT THIS TIME. ALSO COMPLAINS OF ABD DISTENTION FOR THE PAST 2 DAYS AND POOR APPETITE. LBM YESTERDAY AND SMALL AMOUNT
--- NOTE | 2016-12-18 08:01 | ED DYSPNEA/ASTHMA COMPLAINT ---
History of Present Illness General Chief Complaint: Dyspnea (COPD, CHF, Other) Stated Complaint: INCREASED DIFF BREATHING,CHEST PAIN Source: patient Exam Limitations: no limitations Vital Signs & Intake/Output Vital Signs & Intake/Output Vital Signs Date Time Temp Pulse Resp B/P B/P Pulse O2 O2 Flow FiO2 Mean Ox Delivery Rate 12/19 0756 96 Nasal 3.0L Cannula 12/19 0742 97.8 67 20 101/54 92 Nasal 3.0L Cannula 12/19 0000 95 Nasal 4.0L Cannula 12/18 2313 67 120/62 12/18 2309 98.1 67 20 120/62 95 Nasal 4.0L Cannula 12/18 2244 Nasal 3.0L Cannula 12/18 1842 118/58 12/18 1600 95 Nasal 4.0L Cannula 12/18 1430 97.9 61 20 118/58 93 Nasal 4.0L Cannula 12/18 1429 Nasal 4.0L Cannula ED Intake and Output 12/19 0000 12/18 1200 Intake Total 370 Output Total Balance 370 Intake, IV 250 Intake, Oral 120 Number 1 Bowel Movements Patient 189 lb 189 lb Weight Weight Reported by Patient Measurement Method Allergies Coded Allergies: NO KNOWN ALLERGIES (08/21/15) Triage Note: 71 YEAR OLD MALE STATES THAT HE HAS HISTORY OF COPD AND IS O2 DEPENDENT AT 2L. STATES THAT HE HAS BEEN HAVING INCREASED SOB X 2 DAYS AND COUGH PRODUCTIVE OF GREEN SPUTUM. TEMP 99.7, O2 SAT 94 % ON 2L. SOB INCREASES ON EXERTION. ALSO STATES THAT LAST PM HE HAD AN EPISODE OF NON RADIATING MID CP THAT LASTED ABOUT 20 MINUTES AND WENT AWAY. DENIES CP AT THIS TIME. ALSO COMPLAINS OF ABD DISTENTION FOR THE PAST 2 DAYS AND POOR APPETITE. LBM YESTERDAY AND SMALL AMOUNT Triage Nurses Notes Reviewed? yes Onset: Gradual Duration: getting worse Timing: recent history Severity: moderate HPI: PT IS A 71 Y/O MALE WITH PMH OF COPD on 2.0L home O2, AFib on Eliquis, CHF, HTN, HLD, GERD, CKD, Gout, DM who presents to emergency room stating that for the past 3 days he's been complaining of dyspnea and dyspnea on exertion has had increase in wheezing and had to increase his home O2 to 3 L for supplemental oxygen. Patient has chills and body aches. Denies any fevers chest pain and arm pain jaw pain nausea vomiting leg swelling hemoptysis. Patient was taking prednisone for the past FEW DAYS with no relief of symptoms (GEETHA DEL VALLE,AZUL) Reconcile Medications Albuterol Sulfate (Ventolin Hfa) 90 MCG HFA.AER.AD 2 PUF INH Q4-6 PRN PRN SHORTNESS OF BREATH (Reported) Albuterol Sulfate 2.5 MG/3 ML (0.083 %) VIAL.NEB 1 Vial INH/KIMANI Q4P PRN SHORTNESS OF BREATH (Reported) Allopurinol 300 MG TABLET 1 HTAB PO DAILY GOUT (Reported) Amiodarone HCl 200 MG TABLET 1 TAB PO DAILY HEART (Reported) Apixaban (Eliquis) 5 MG TABLET 1 TAB PO BID BLOOD THINNER (Reported) Atorvastatin Calcium (Lipitor) 40 MG TABLET 1 TAB PO QPM CHOLESTEROL ( Reported) Digoxin 125 MCG TABLET 1 TAB PO DAILY HEART (Reported) Diltiazem HCl (Cartia Xt) 120 MG CAP.ER.24H 1 CAP PO DAILY HEART (Reported) Fluticasone/Salmeterol (Advair 250-50 Diskus) 250 MCG-50 MCG/DOSE BLST.W.DEV 1 PUF INH BID COPD (Reported) Lisinopril 10 MG TABLET 1 TAB PO DAILY HIGH BLOOD PRESSURE (Reported) Reason to Stop at ADM: CHAKA Pantoprazole Sodium (Protonix) 20 MG TABLET.DR 1 TAB PO DAILY ACID REFLUX ( Reported) Prednisone 10 MG TABLET 1 TAB PO DAILY COPD PLEASE TAKE 3 TABS(30MG) ON 08/19, 08/20 2 TABS(20MG) ON 08/21, 08/22 1 TABS(10MG) ON 08/23, 08/24 PLEASE STOP ON 08/24 Spironolactone (Aldactone) 25 MG TABLET 1 TAB PO DAILY CHF (Reported) Tiotropium [place] (Spiriva) 18 MCG CAP.W.DEV 1 PUFF INH DAILY COPD (Reported ) (CHIP MENON,ALVINA) Past History Travel History Traveled to [place] past 21 day No Medical History Any Pertinent Medical History? see below for history Neurological: NONE EENT: cataracts Cardiovascular: AFIB, CHF, hypertension, hyperlipidemia Respiratory: COPD (2L O2& steroid dependent), O2 DEP 2L Gastrointestinal: GERD, pancreatitis Hepatic: hepatic cysts Renal: chronic kidney disease Musculoskeletal: gout Psychiatric: NONE Endocrine: diabetes (insulin-requiring) Blood Disorders: NONE Cancer(s): NONE LION TAMER/Reproductive: NONE History of MRSA: No History of VRE: No History of CDIFF: No Influenza Vaccine: 05/11/16 Tetanus Vaccine: 06/30/14 Surgical History Surgical History: appendectomy, cataract removal, knee replacement (right TKR) Psychosocial History Who do you live with Family Services at Home Oxygen What is your primary language Turkish Tobacco Use: Never used ETOH Use: denies use Illicit Drug Use: denies illicit drug use Family History Family History, If Any: BROTHER, ; Cause: Brain cancer. Uncle (NM at age 40). FH: myocardial infarction SISTER FH: lung cancer Hx Contributory? No (AZUL SUE) Review of Systems Review of Systems Constitutional: Reports: no symptoms. EENTM: Reports: no symptoms. Respiratory: Reports: see HPI, short of breath, wheezing. Cardiovascular: Reports: no symptoms. GI: Reports: no symptoms. Genitourinary: Reports: no symptoms. Musculoskeletal: Reports: no symptoms. Skin: Reports: no symptoms. Neurological/Psychological: Reports: no symptoms. Hematologic/Endocrine: Reports: no symptoms. Immunologic/Allergic: Reports: no symptoms. All Other Systems: Reviewed and Negative (AZUL SUE) Physical Exam Physical Exam General Appearance: no apparent distress, alert Respiratory: decreased breath sounds, EXPIRATORY WHEEZING NOTED Comments: HEENT: Normal EENT exam, Neck: Supple, no lymphadenopathy, normal range of motion without pain or tenderness Back: Nontender, no CVA tenderness. Cardiovascular: Regular rate and rhythms no murmurs rubs or gallops, normal JVP Abdomen: Soft, nontender nondistended, no appreciable organomegaly. Normal bowel sounds. No ascites Extremity: No edema, no calf tenderness to palpation, normal and equal pulses. Neuro: Alert oriented x3, motor sensory normal, Skin: No appreciable rash on exposed skin, skin is warm and dry. Psych: Mood and affect is normal, memory and judgment is normal. Core Measures ACS in differential dx? No Severe Sepsis Present: No Septic Shock Present: No (AZUL SUE) Progress Differential Diagnosis: asthma, AMI, bronchitis, costochondritis, CHF, COPD, musculoskeletal pain, pericarditis, pulmonary embolism, pneumonia, pneumothorax, rib fracture, unstable angina Plan of Care: Orders Procedure Date/time Status CBC WITHOUT DIFFERENTIAL 12/20 599 Active BASIC ELECTROLYTES PLUS BUN&CR 05/25 0600 Active Consistent Carbohydrate 3 12/19 D Active House Staff 12/19 UNK Active FingerStick- Glucose 12/19 UNK Active Regular Diet 12/18 D Complete RT: Evaluation 12/18 2243 Active Vital Signs 12/18 1427 Active Teach/Educate 12/18 142 Active Pain Treatment and Response 12/18 142 Active Nutritional Intake, Monitor 12/18 142 Active Isolation 12/18 1427 Active Intake & Output 12/18 142 Active Patient Care Conference 12/18 1427 Active Activity/Ambulation 12/18 1427 Active LOWER RESPIRATORY CULTURE 12/18 1411 Active OXYGEN SETUP CHG 12/18 UNK Complete AEROSOL CHG 12/18 UNK Complete OXYGEN 12/18 UNK Complete OXYGEN TRANSPORT 12/18 UNK Complete TRC EVALUATION (GEN) 12/18 UNK Complete THERAPIST ORDERS 12/18 UNK Complete OXYGEN SETUP (GEN) 12/18 UNK Complete MISSING MEDICATION FORM 12/18 UNK Active PHYSICIAN CONSULT 12/18 UNK Active Current Medications Sig/Luis Start time Last Medication Dose Stop Time Status Admin Insulin Aspart 0 TIDAC 12/19 1200 AC 12/19 (NovoLOG) 1319 Albuterol Sulfate 3 ML EVERY 4 HRS/AWAKE 12/19 0800 AC 12/19 (Proventil) 1349 Lisinopril 10 MG 2200 12/18 2200 AC 12/18 (Prinivil) 2313 Methylprednisolone 40 MG Q12 12/18 2200 AC 12/19 (Solumedrol) 0921 Spironolactone 25 MG 2200 12/18 2200 AC 12/18 (Aldactone) 2314 Digoxin 0.125 MG DAILY 12/18 1845 AC 12/19 (Lanoxin) 0919 Atorvastatin Calcium 40 MG 1700 12/18 1700 AC 12/18 (Lipitor) 1842 Acetaminophen 650 MG Q6P PRN 12/18 1030 AC (Tylenol) Acetaminophen 1,000 MG Q6P PRN 12/18 1030 AC (Ofirmev) Azithromycin 500 MG DAILY 12/18 1030 AC 12/19 (Zithromax) 0920 Sodium Chloride 250 ML (Normal Saline 0.9%) Oxycodone/ 2 TAB Q6P PRN 12/18 1030 AC Acetaminophen (Percocet) Omeprazole 20 MG DAILY AC 12/18 1027 AC 12/19 (Prilosec) 0629 Albuterol Sulfate 2 PUF Q4-6 PRN PRN 12/18 1000 AC (Ventolin) Allopurinol 300 MG DAILY 12/18 1000 AC 12/19 (Zyloprim) 09 Amiodarone HCl 200 MG DAILY 12/18 1000 AC 12/19 (Cordarone) 0919 Apixaban 5 MG BID 12/18 1000 AC 12/19 (Eliquis) 09 Budesonide/ 2 PUF BID 12/18 1000 AC 12/19 Formoterol Fumarate 0919 (Symbicort) Diltiazem HCl 120 MG DAILY 12/18 1000 AC 12/19 (Cardizem CD) 09 Tiotropium [place] 1 PUF DAILY 12/18 1000 AC 12/19 (Spiriva) 0920 Laboratory Tests 12/19/16 0645: Anion Gap 10, Estimated GFR 46 L, BUN/Creatinine Ratio 21.3, CBC w Diff NO MAN DIFF REQ, RBC 3.70 L, MCV 95.3 H, MCH 31.8 H, RDW 15.1 H, MPV 8.9, Gran % 94.2 H, Lymphocytes % 3.2 L, Monocytes % 2.4, Eosinophils % 0, Basophils % 0.2 , Absolute Granulocytes 7.0 H, Absolute Lymphocytes 0.2 L, Absolute Monocytes 0.2, Absolute Eosinophils 0, Absolute Basophils 0, PUBS MCHC 33.3 Microbiology 12/18 1412 LOWER RESP: Respiratory Culture - RES 12/18 141 LOWER RESP: Gram Stain - RES Patient noted to have significantly tight auscultation and breath sounds and mild expiratory wheezing. After nebulizer treatment patient did have improvement of his tight auscultation and wheezing was more apparent however still persisted. Discussed admission with Dr. Lopez who advised patient to be admitted discussed disposition and plan with patient who agrees and has no questions (GEETHA DEL VALLE,AZUL) Diagnostic Imaging: Viewed by Me: Radiology Read. Radiology Impression: SEE COMMENTS Initial ED EK BPM, NSR Prior EKG: unchanged Comments: PATIENT: TESSA YANEZ JR PRESENT AGE: 71 PATIENT ACCOUNT NO: [id number] : 45 LOCATION: [facility] ORDERING PHYSICIAN: AZUL DEL VALLE SERVICE DATE: 12/18/16 EXAM TYPE: RAD - XRY-CHEST XRAY, PA AND LATERAL EXAMINATION: XR CHEST CLINICAL INFORMATION: 1-year-old male patient with shortness of breath, COPD, and CHF. COMPARISON: Prior chest x-rays done 05/15/2016 and 08/16/2016. TECHNIQUE: AP and lateral erect views of the chest. FINDINGS: Reexamination shows the heart to be normal in size. There is symmetric hyperaeration of both lungs consistent with COPD. The aortic arch is calcified and dilated but not changed. In the past, the main pulmonary artery segment has been markedly dilated. This has also not changed. There is no sign of consolidation or pulmonary edema. The pleural spaces are free of fluid accumulation. Old healed rib fractures are present on the right. IMPRESSION: No evidence of pneumonia or pulmonary edema. COPD. Chronic dilated calcified aortic arch and prominent main pulmonary artery. DICTATED BY: CAROLINE ANDRADE MD DATE/TIME DICTATED:12/18/16914 SKIN CARE TECHNICIAN:KIRSTY (AZUL SUE) Departure Departure Disposition: STILL A PATIENT Condition: Stable Clinical Impression Primary Impression: COPD (chronic obstructive pulmonary disease) Referrals: DESHAWN LOPEZ MD (PCP/Family) Departure Forms: Customer Survey General Discharge Information Admission Note Spoke With: DESHAWN LOPEZ MD Documentation of Exam: Documentation of any treatments & extenuating circumstances including Concerns Regarding Discharge (functional status, medication knowledge or non-compliance, living conditions, etc.) that warrant an admission rather than observation: [ Stress patient with Dr. Lopez who agrees with general medicine admission for concerns of COPD exacerbation. Patient requires IV site Medrol, repeat nebulizer treatments pulmonary consultation. Outpatient treatment at this time due to failed outpatient treatment of nebulizer and prednisone would be medically harmful] (AZUL SUE) PA/COUNTY ENGINEER Co-Sign Statement Statement: ED Attending supervision documentation- [X] I saw and evaluated the patient. I have also reviewed all the pertinent lab results and diagnostic results. I agree with the findings and the plan of care as documented in the PA's/COUNTY ENGINEER's documentation. [X] I have reviewed the ED Record and agree with the PA's/COUNTY ENGINEER's documentation. [] Additions or exceptions (if any) to the PAs/COUNTY ENGINEER's note and plan are summarized below: [] (CHIP MENON,ALVINA) Critical Care Note Critical Care Note Critical Care Time: non-applicable (AZUL SUE)
--- NOTE | 2016-12-18 08:25 | NUR ---
LABS DRAWN AND SENT, LAV,SST.BLUE,[place].
[2016-12-18 08:30] LABS: ABSOLUTE BASOPHIL COUNT 0 /CUMM (0.0-0.2); ABSOLUTE EOSINOPHIL COUNT 0.8 /CUMM (0.0-0.7); ABSOLUTE GRANULOCYTE CT 7.5 /CUMM (1.4-6.5); ABSOLUTE LYMPH COUNT 1.4 /CUMM (1.2-3.4); ABSOLUTE MONOCYTE COUNT 1.2 /CUMM (0.10-0.60); BASOPHIL % 0.5 % (0.0-2.0); EOSINOPHIL % 7.8 % (0-5); GRANULOCYTE % 68.4 % (42.2-75.2); MEAN CORPUSCULAR HGB 31.7 PG (27.0-31.0); MEAN CORPUSCULAR HGB CONC 33.3 G/DL (33.0-37.0); MEAN CORPUSCULAR VOLUME 95.1 FL (80.0-94.0); MEAN PLATELET VOLUME 8.1 FL (7.4-10.4); PLATELET COUNT 214 /CUMM (130-400); RBC DISTRIBUTION WIDTH 15.6 % (11.5-14.5); WHITE BLOOD CELL COUNT 10.9 /CUMM (4.8-10.8)
--- NOTE | 2016-12-18 08:45 | NUR ---
ASSUMED CARE OF PT AT THIS TIME PT ALERT/ORIENTED X 4, SPEAKING CLEARLY WITH NO DEFICITS NOTED. PT REPORTS "NOT FEELING WELL" FOR 2-3 DAYS. PT STATES HE IS "SORE AND ACHY ALL OVER". ALSO REPORTS DECREASED APPETITE/PO INTAKE. ON 4L 02, SAT 96%. DENIES CURRENT PAIN. FLU SWAB OBTAINED AND SENT. PT SPIT UP MODERATE AMOUNT THICK CLEAR PHLEGM. SPUTUM SAMPLE SENT. IV EST. MED WITH SOLU MEDROL PER SEP TAKEN TO RADIOLOGY VIA STRETCHER
--- NOTE | 2016-12-18 08:49 | NUR ---
[facility] CALLED FOR NICHOLE CABRERA [place]
--- NOTE | 2016-12-18 09:10 | NUR ---
BACK FROM RADIOLOGY BREATHING TX IN PROGRESS
--- NOTE | 2016-12-18 09:24 | RADIOLOGY REPORT ---
EXAMINATION: XR CHEST CLINICAL INFORMATION: 1-year-old male patient with shortness of breath, COPD, and CHF. COMPARISON: Prior chest x-rays done 05/15/2016 and 08/16/2016. TECHNIQUE: AP and lateral erect views of the chest. FINDINGS: Reexamination shows the heart to be normal in size. There is symmetric hyperaeration of both lungs consistent with COPD. The aortic arch is calcified and dilated but not changed. In the past, the main pulmonary artery segment has been markedly dilated. This has also not changed. There is no sign of consolidation or pulmonary edema. The pleural spaces are free of fluid accumulation. Old healed rib fractures are present on the right. IMPRESSION: No evidence of pneumonia or pulmonary edema. COPD. Chronic dilated calcified aortic arch and prominent main pulmonary artery.
--- NOTE | 2016-12-18 09:30 | NUR ---
DENIES COMPLAINTS. REMAINS 95% ON 4L. DENIES PAIN
[2016-12-18] MEDS ORDERED: CARTIA XT120 M1 PO (09:34)
--- NOTE | 2016-12-18 09:49 | History & Physical ---
See Addendum General Information and HPI MD Statement: I have seen and personally examined TESSA YANEZ JR and documented this H& P. The patient is a 71 year old M who presented with a patient stated chief complaint of [shortness of breath and productive cough]. Source of Information: patient History of Present Illness: This is a 71-year-old male with a past medical history of atrial fibrillation currently on amiodarone and Eliquis, history of COPD on 2 L of oxygen at home and 10 mg of by mouth prednisone comes in for acute shortness of breath and productive cough for the last 2 days. The patient's symptoms started 48 hours back when he started having this cough which was productive with whitish sputum and has been turning yellow in the last 24 hours. He also had this abdominal pain which was associated with loose watery diarrhea until resolved now. No recent sick contacts or any recent travels. He has been compliant with his inhalers but his nebulization has not been working for his resolution of symptoms for the last couple of days. Denies any chest pain, palpitations, or any bilateral leg swelling. He follows up with Dr. Cruz and Dr. Silva for his lung and heart problems respectively. Allergies/Medications Allergies: Coded Allergies: NO KNOWN ALLERGIES (08/21/15) Home Med list Albuterol Sulfate (Ventolin Hfa) 90 MCG HFA.AER.AD 2 PUF INH Q4-6 PRN PRN SHORTNESS OF BREATH (Reported) Albuterol Sulfate 2.5 MG/3 ML (0.083 %) VIAL.NEB 1 Vial INH/KIMANI Q4P PRN SHORTNESS OF BREATH (Reported) Allopurinol 300 MG TABLET 1 HTAB PO DAILY GOUT (Reported) Amiodarone HCl 200 MG TABLET 1 TAB PO DAILY HEART (Reported) Apixaban (Eliquis) 5 MG TABLET 1 TAB PO BID BLOOD THINNER (Reported) Atorvastatin Calcium (Lipitor) 40 MG TABLET 1 TAB PO QPM CHOLESTEROL ( Reported) Digoxin 125 MCG TABLET 1 TAB PO DAILY HEART (Reported) Diltiazem HCl (Cartia Xt) 120 MG CAP.ER.24H 1 CAP PO DAILY HEART (Reported) Fluticasone/Salmeterol (Advair 250-50 Diskus) 250 MCG-50 MCG/DOSE BLST.W.DEV 1 PUF INH BID COPD (Reported) Lisinopril 10 MG TABLET 1 TAB PO DAILY HIGH BLOOD PRESSURE (Reported) Reason to Stop at ADM: CHAKA Pantoprazole Sodium (Protonix) 20 MG TABLET.DR 1 TAB PO DAILY ACID REFLUX ( Reported) Prednisone 10 MG TABLET 1 TAB PO DAILY COPD PLEASE TAKE 3 TABS(30MG) ON 08/19, 08/20 2 TABS(20MG) ON 08/21, 08/22 1 TABS(10MG) ON 08/23, 08/24 PLEASE STOP ON 08/24 Spironolactone (Aldactone) 25 MG TABLET 1 TAB PO DAILY CHF (Reported) Tiotropium [place] (Spiriva) 18 MCG CAP.W.DEV 1 PUFF INH DAILY COPD (Reported ) Past History Travel History Traveled to [place] past 21 day No Medical History Neurological: NONE EENT: cataracts Cardiovascular: AFIB, CHF, hypertension, hyperlipidemia Respiratory: COPD (2L O2& steroid dependent), O2 DEP 2L Gastrointestinal: GERD, pancreatitis Hepatic: hepatic cysts Renal: chronic kidney disease Musculoskeletal: gout Psychiatric: NONE Endocrine: diabetes (insulin-requiring) Blood Disorders: NONE Cancer(s): NONE 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 Uncle ([place] at age 40). FH: myocardial infarction SISTER FH: lung cancer FATHER Psychosocial History Who Do You Live With? spouse, 2 daughters, one son, granddaughter and her Services at Home: Oxygen Primary Language: Moldovan Smoking Status: Light Tobacco Smoker ETOH Use: denies use Illicit Drug Use: denies illicit drug use Functional Ability ADLs Independent: dressing, eating, toileting, bathing. Ambulation: independent IADLs Independent: shopping, housework, finances, food prep, telephone, transportation , medication admin. Review of Systems Review of Systems Constitutional: Reports: see HPI. Cardiovascular: Denies: chest pain, edema, orthopena, peripheral edema. Respiratory: Reports: cough, sputum production. GI: Reports: diarrhea, nausea, vomiting. Denies: constipation. Genitourinary: Denies: discharge, dysuria, frequency, hematuria. Musculoskeletal: Denies: joint swelling. Neurological/Psychological: Denies: cognitive dysfunction, confusion, depressed, dementia, emotional problems. Exam & Diagnostic Data Last 24 Hrs of Vital Signs/I&O Vital Signs Date Time Temp Pulse Resp B/P B/P Pulse O2 O2 Flow FiO2 Mean Ox Delivery Rate 12/18 0951 94 Nasal 4.0L Cannula 12/18 0929 94 Nasal 4.0L Cannula 12/18 0850 96 Nasal 4.0L Cannula 12/18 0754 99.7 80 20 108/76 94 Nasal 2.0L Cannula Intake & Output 12/18 1600 12/18 0800 12/18 0000 Intake Total Output Total Balance Patient 189 lb Weight Physical Exam General Appearance Alert, Oriented X3, Cooperative Skin No Rashes, No Breakdown Skin Temp/Moisture Exam: Cool/Dry Sepsis Skin Exam (color): Normal for Ethnicity, Cyanotic, Flushed HEENT Atraumatic, PERRLA Neck Supple, No JVD Lymphatic Axillary nl, Cervical nl Cardiovascular Regular Rate, Normal S1, Normal S2 Lungs bilateral decreased airway entry and wheezing No crackles Abdomen Normal Bowel Sounds, Soft, No Tenderness Neurological Normal Gait, Normal Speech, Strength at 5/5 X4 Ext Extremities No Clubbing, No Cyanosis, No Edema Assessment/Plan Assessment: This is a 71-year-old male with a past medical history of oxygen dependent 2 L, and prednisone dependent COPD who presented to the [facility] with worsening shortness of breath and productive sputum for the last couple of days. The patient denies any cardiac symptoms includes chest pain orthopnea. Vitals at the time of admission showed Saturation of 94% on 2 L, which later dropped to 90% on 2 L, temperature of 98.6 , blood pressure of 138/80, respiration rate of 18, Labs shows WBC of 10.9, normal hemoglobin and hematocrit, Creatinine 1.4 with a baseline of 1.5-1.4, normal BUN/creatinine, normal electrolytes Chest x-ray unremarkable for any pneumonia EKG shows atrial fibrillation with normal ventricular response Assessment 1. Acute hypoxemia: This is most likely secondary to COPD exacerbation 2. History of proximal atrial fibrillation 3. History of hypertension 4. History of COPD oxygen-dependent prednisone t Plan: Admit the patient to general medicine floor Start the patient was on a Medrol 40 mg every 12 IV azithromycin for anti-inflammatory TRC evaluation and dual nebs Continue with amiodarone, digoxin,(after checking the digoxin levels), Cardizem and Eliquis Pulmonology consult with Dr. Bello DVT prophylaxis with Elikimberly Patient is full code As Ranked By This Provider Problem List: 1. Acute bronchitis 2. Chronic respiratory failure 3. COPD exacerbation Core Measures/Miscellaneous Acute Coronary Syndrome ACS Diagnosis: No Cerebrovascular Accident CVA/TIA Diagnosis: No Congestive Heart Failure CHF Diagnosis: No Venous Thromboembolism VTE Risk Factors: Acute medical illness, Age > 40, Cancer/chemo/oth therapy No Mech VTE prophylaxis d/t: VTE low risk, No contraindications No VTE Pharm Prophylaxis d/t: VTE low risk, No contraindications VTE Diagnosis: No VTE Type: NONE VTE Confirmed by (Test): NONE Severe Sepsis Severe Sepsis Present: No Septic Shock Septic Shock Present: No Miscellaneous Documentation Attending Case Discussed With: DESHAWN LEBRON MD Primary Care Physician: DESHAWN LEBRON MD Patient sees these Specialists DR KENZIE ABEBE Level of Patient Care: General Medicine
--- NOTE | 2016-12-18 10:12 | Admission Certification ---
Admission Certification Certification Statement - As attending physician, I certify that at the time of - admission, based on clinical presentation, severity of - symptoms, need for further diagnostic testing and - therapeutic interventions, and risk of adverse outcomes - without in-hospital treatment, in my clinical assessment, - this patient requires an acute hospital stay for a minimum - of two nights or longer. I have also considered psychsocial - factors such as support system, advanced age, financial - issues, cognitive issues, and failed out-patient treatments, - past re-admission history, safety of patient, and lack of - compliance as applicable. Specific rationale supporting this admission is: Exacerbation of COPD and abdominal pain.
--- NOTE | 2016-12-18 10:16 | PN- Att Addend ---
Attending Addendum Attending Brief Note 71-year-old white male was just saw in the office last week stable condition and also follows with cardiology and pulmonary has home oxygen for the last 2 days also has had increased shortness of breath cough and some sputum earlier this morning he was very tight to come to the emergency room, after respiratory therapy and IV steroids time to feel better. Abdominal pain for a day or so better now for all these reasons will be admitted. Will have Dr. Keller check the patient , he knows him well discussed with resident Laboratory Tests 12/18 12/18 0823 0816 Chemistry Sodium (137 - 145 mmol/L) 135 L Potassium (3.5 - 5.1 mmol/L) 4.3 Chloride (98 - 107 mmol/L) 98 Carbon Dioxide (22 - 30 mmol/L) 30 Anion Gap (5 - 16) 7 BUN (9 - 20 mg/dL) 23 H Creatinine (0.7 - 1.2 mg/dL) 1.4 H Estimated GFR (>60 ml/min) 50 L BUN/Creatinine Ratio (7 - 25 %) 16.4 Glucose (65 - 99 mg/dL) 96 Lactic Acid (0.7 - 2.1 mmol/L) 1.0 Calcium (8.4 - 10.2 mg/dL) 9.6 Total Bilirubin (0.2 - 1.3 mg/dL) 0.9 AST (17 - 59 U/L) 27 ALT (21 - 72 U/L) 51 Alkaline Phosphatase (< 127 U/L) 60 Troponin I (<0.11 ng/ml) < 0.01 Eub-Q-Abiowdoqixd Pept (<125 pg/mL) 261 H Cancelled Total Protein (6.3 - 8.2 g/dL) 5.7 L Albumin (3.5 - 5.0 g/dL) 3.7 Globulin (1.9 - 4.2 gm/dL) 2.0 Albumin/Globulin Ratio (1.1 - 2.2 %) 1.9 Hematology CBC w Diff NO MAN DIFF REQ WBC (4.8 - 10.8 /CUMM) 10.9 H RBC (4.70 - 6.10 /CUMM) 4.00 L Hgb (14.0 - 18.0 G/DL) 12.7 L Hct (42 - 52 %) 38.0 L MCV (80.0 - 94.0 FL) 95.1 H MCH (27.0 - 31.0 PG) 31.7 H RDW (11.5 - 14.5 %) 15.6 H Plt Count (130 - 400 /CUMM) 214 MPV (7.4 - 10.4 FL) 8.1 Gran % (42.2 - 75.2 %) 68.4 Lymphocytes % (20.5 - 51.1 %) 12.5 L Monocytes % (1.7 - 9.3 %) 10.8 H Eosinophils % (0 - 5 %) 7.8 H Basophils % (0.0 - 2.0 %) 0.5 Absolute Granulocytes (1.4 - 6.5 /CUMM) 7.5 H Absolute Lymphocytes (1.2 - 3.4 /CUMM) 1.4 Absolute Monocytes (0.10 - 0.60 /CUMM) 1.2 H Absolute Eosinophils (0.0 - 0.7 /CUMM) 0.8 Absolute Basophils (0.0 - 0.2 /CUMM) 0 PUBS MCHC (33.0 - 37.0 G/DL) 33.3 Toxicology Digoxin (0.8 - 2.0 ng/mL) Pending
--- NOTE | 2016-12-18 10:57 | NUR ---
HOUSE STAFF PAGED TO DETERMINE WHETHER BLOOD CULTURES ARE NEEDED. ANTIBIOTICS NOTED TO BE ORDERED FOR 1000
--- NOTE | 2016-12-18 11:19 | NUR ---
MED WITH DAILY 1000 MEDS. PT REFUSED LISINOPRIL AND ALDACTONE STATING HE TAKES THOSE AT NIGHT. ALSO REFUSED PRILOSEC STATING HE DOESNT TAKE THIS MED. HOUSE STAFF PAGED TO INFORM OF SAME.
--- NOTE | 2016-12-18 11:20 | NUR ---
NEW CUP GIVEN FOR SPUTUM SAMPLE - PREVIOUS SAMPLE WAS NOT A GOOD SAMPLE PER LAB
--- NOTE | 2016-12-18 11:26 | NUR ---
PER MOD, DR LÓPEZ, NO BLOOD CULTURES NEEDED ALSO MADE AWARE OF REFUSED MEDICATIONS AND DUPLICATE FLU SWAB ORDER.
--- NOTE | 2016-12-18 11:38 | NUR ---
CONFIRMED WITH BLANCA LÓPEZ, NO BC NEEDED PRIOR TO ANTIBIOTICS ZITHROMAX INFUSING AT THIS TIME PER MAR PT CONTINUES TO OFFER NO COMPLAINTS
--- NOTE | 2016-12-18 11:39 | NUR ---
TUNAFISH SANDWICH ORDERED PER PT REQUEST
--- NOTE | 2016-12-18 12:46 | NUR ---
[facility] ASSIGNMENT [phone]
--- NOTE | 2016-12-18 13:19 | NUR ---
PT HAS EATEN LUNCH. ZITHROMAX CONTINUES TO INFUSE. PT CONTINUES TO OFFER NO COMPLAINTS AWAITING TRANSFER UPSTAIRS
--- NOTE | 2016-12-18 13:28 | NUR ---
REPORT GIVEN TO [facility] ROOM BEING CLEANED - TRANSPORT BOOKED FOR 1345 PER GEN MED NURSE.
--- NOTE | 2016-12-18 14:18 | NUR ---
PT PROVIDED ANOTHER SPUTUM SAMPLE RE ORDERED AND SENT TO LAB AT THIS TIME AWAKE, ALERT AND ORIENTED AT TIME OF TRANSPORT; SAT 95% ON 4L.
--- NOTE | 2016-12-18 14:25 | NUR ---
PATIENT ARRIVED TO FLOOR VIA STRETCHER FROM ER WITH DISTRIBUTION; PATIENT IS A/OX3; 4L O2 NC (BASELINE 2L AT HOME); DENIES SHORTNESS OF BREATH; LUNGS DIMINISHED; ALPS IN PLACE PER ORDER; IV LOCK IN PLACE TO NURYS; PATIENT HAS EYEGLASSES AND UPPER/LOWER DENTURES; PATIENT IS INDEPENDENT AND ORIENTED TO ROOM AND CALL [facility]; PATIENT DENIES PAIN AT THIS TIME; WILL CONTINUE TO MONITOR PATIENT;
[2016-12-18 14:30] VITALS: BP 118/58
[2016-12-18 23:09] VITALS: BP 120/62
[2016-12-19 07:42] VITALS: BP 101/54
--- NOTE | 2016-12-19 08:13 | Cons- Pulmonary ---
General Information and HPI Consulting Request Date of Consult: 12/19/16 Requested By: shaan Reason for Consult: Exacerbation of the COPD History of Present Illness: Patient is 71-year-old with severe oxygen-dependent COPD who didn't doing well up until several days ago when he noted increasing cough transiently productive of discolored sputum without chest pain or hemoptysis.. He had increasing shortness of breath unresponsive to his inhaled bronchodilators. He was admitted for exacerbation of COPD. He transiently required increased oxygen but his FiO2 has been able to be decreased towards baseline. Allergies/Medications Allergies: Coded Allergies: NO KNOWN ALLERGIES (08/21/15) Home Med List: Albuterol Sulfate (Ventolin Hfa) 90 MCG HFA.AER.AD 2 PUF INH Q4-6 PRN PRN SHORTNESS OF BREATH (Reported) Albuterol Sulfate 2.5 MG/3 ML (0.083 %) VIAL.NEB 1 Vial INH/KIMANI Q4P PRN SHORTNESS OF BREATH (Reported) Allopurinol 300 MG TABLET 1 HTAB PO DAILY GOUT (Reported) Amiodarone HCl 200 MG TABLET 1 TAB PO DAILY HEART (Reported) Apixaban (Eliquis) 5 MG TABLET 1 TAB PO BID BLOOD THINNER (Reported) Atorvastatin Calcium (Lipitor) 40 MG TABLET 1 TAB PO QPM CHOLESTEROL ( Reported) Digoxin 125 MCG TABLET 1 TAB PO DAILY HEART (Reported) Diltiazem HCl (Cartia Xt) 120 MG CAP.ER.24H 1 CAP PO DAILY HEART (Reported) Fluticasone/Salmeterol (Advair 250-50 Diskus) 250 MCG-50 MCG/DOSE BLST.W.DEV 1 PUF INH BID COPD (Reported) Lisinopril 10 MG TABLET 1 TAB PO DAILY HIGH BLOOD PRESSURE (Reported) Reason to Stop at ADM: CHAKA Pantoprazole Sodium (Protonix) 20 MG TABLET.DR 1 TAB PO DAILY ACID REFLUX ( Reported) Prednisone 10 MG TABLET 1 TAB PO DAILY COPD PLEASE TAKE 3 TABS(30MG) ON 08/19, 08/20 2 TABS(20MG) ON 08/21, 08/22 1 TABS(10MG) ON 08/23, 08/24 PLEASE STOP ON 08/24 Spironolactone (Aldactone) 25 MG TABLET 1 TAB PO DAILY CHF (Reported) Tiotropium [place] (Spiriva) 18 MCG CAP.W.DEV 1 PUFF INH DAILY COPD (Reported ) Review of Systems Review of Systems Constitutional: Denies: chills, fever. Cardiovascular: Denies: chest pain, peripheral edema. Respiratory: Reports: cough, short of breath, sputum production. Denies: hemoptysis. GI: Denies: abdominal pain, melena. 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 Uncle ([place] at age 40). FH: myocardial infarction SISTER FH: lung cancer FATHER Psychosocial History Where Do You Live? Home Who Do You Live With? spouse, 2 daughters, one son, granddaughter and her Services at Home: Oxygen Primary Language: Puerto Rican Smoking Status: Former Smoker ETOH Use: denies use Illicit Drug Use: denies illicit drug use Functional Ability ADLs Independent: dressing, eating, toileting, bathing. Ambulation: independent IADLs Independent: shopping, housework, finances, food prep, telephone, transportation , medication admin. Exam & Diagnostic Data Last 24 Hrs of Vital Signs/I&O Vital Signs Date Time Temp Pulse Resp B/P B/P Pulse O2 O2 Flow FiO2 Mean Ox Delivery Rate 12/19 0756 96 Nasal 3.0L Cannula 12/19 0742 97.8 67 20 101/54 92 Nasal 3.0L Cannula 12/19 0000 95 Nasal 4.0L Cannula 12/18 2313 67 120/62 12/18 2309 98.1 67 20 120/62 95 Nasal 4.0L Cannula 12/18 2244 Nasal 3.0L Cannula 12/18 1842 118/58 12/18 1600 95 Nasal 4.0L Cannula 12/18 1430 97.9 61 20 118/58 93 Nasal 4.0L Cannula 12/18 1429 Nasal 4.0L Cannula 12/18 1318 97.8 70 18 112/54 95 Nasal 4.0L Cannula 12/18 1119 97.8 68 16 105/61 95 Nasal 4.0L Cannula 12/18 1117 97.8 68 18 105/61 12/18 1117 97.8 68 18 105/61 12/18 1057 98.7 68 22 99/55 96 12/18 0951 94 Nasal 4.0L Cannula 12/18 0929 94 Nasal 4.0L Cannula 12/18 0850 96 Nasal 4.0L Cannula Intake & Output 12/19 1600 12/19 0800 12/19 0000 Intake Total 240 120 Output Total Balance 240 120 Intake, Oral 240 120 Number 1 Bowel Movements Oxygen saturation 3 L 96% exam of his chest shows scattered soft expiratory wheezing cardiac exam shows normal S1 and S2 without murmurs abdominal exam is soft nontender he has no lower extremity edema Last 48 Hrs of Labs/Chacorta: Laboratory Tests 12/19/16 0645: Anion Gap 10, Estimated GFR 46 L, BUN/Creatinine Ratio 21.3, CBC w Diff Pending , WBC Pending, RBC Pending, Hgb Pending, Hct Pending, MCV Pending, MCH Pending, RDW Pending, Plt Count Pending, MPV Pending, PUBS MCHC Pending 12/18/16 1115: Lactic Acid Cancelled 12/18/16822: Anion Gap 7, Estimated GFR 50 L, BUN/Creatinine Ratio 16.4, Glucose 96, Lactic Acid 1.0, Calcium 9.6, Total Bilirubin 0.9, AST 27, ALT 51, Alkaline Phosphatase 60, Troponin I < 0.01, Jrx-H-Wnbnrufyyby Pept 261 H, Total Protein 5.7 L, Albumin 3.7, Globulin 2.0, Albumin/Globulin Ratio 1.9, CBC w Diff NO MAN DIFF REQ, RBC 4.00 L, MCV 95.1 H, MCH 31.7 H, RDW 15.6 H, MPV 8.1, Gran % 68.4, Lymphocytes % 12.5 L, Monocytes % 10.8 H, Eosinophils % 7.8 H, Basophils % 0.5, Absolute Granulocytes 7.5 H, Absolute Lymphocytes 1.4, Absolute Monocytes 1.2 H, Absolute Eosinophils 0.8, Absolute Basophils 0, PUBS MCHC 33.3, Digoxin 1.0 12/18/16 0816: Ziq-S-Sfuvdrkqczh Pept Cancelled Microbiology 12/18 822 NASOPHARYN: Influenza Virus A & B Rapid Smear - COMP Assessment/Plan Impression/Plan: 71-year-old gentleman with severe oxygen-dependent COPD chronic respiratory failure admitted with acute shortness of breath secondary to exacerbation of COPD. Chest x-ray does not demonstrate pneumonia Recommendations: Continue IV Solu-Medrol for today with anticipated changed to by mouth prednisone tomorrow continue to taper FiO2 back to baseline. Assess sputum C&S. Continue baseline cardiac meds Consult Acknowledgment - Thank you for your consult request.
[2016-12-19 08:14] LABS: ABSOLUTE BASOPHIL COUNT 0 /CUMM (0.0-0.2); ABSOLUTE EOSINOPHIL COUNT 0 /CUMM (0.0-0.7); ABSOLUTE LYMPH COUNT 0.2 /CUMM (1.2-3.4); ABSOLUTE MONOCYTE COUNT 0.2 /CUMM (0.10-0.60); BASOPHIL % 0.2 % (0.0-2.0); EOSINOPHIL % 0 % (0-5); GRANULOCYTE % 94.2 % (42.2-75.2); HEMATOCRIT 35.3 % (42-52); MEAN CORPUSCULAR HGB 31.8 PG (27.0-31.0); MEAN CORPUSCULAR HGB CONC 33.3 G/DL (33.0-37.0); MEAN CORPUSCULAR VOLUME 95.3 FL (80.0-94.0); MEAN PLATELET VOLUME 8.9 FL (7.4-10.4); PLATELET COUNT 189 /CUMM (130-400); RBC DISTRIBUTION WIDTH 15.1 % (11.5-14.5)
[2016-12-19 09:55] LABS: WHITE BLOOD CELL COUNT 7.4 /CUMM (4.8-10.8)
--- NOTE | 2016-12-19 11:44 | PN- Housestaff ---
Subjective Follow-up For: Acute hypoxemia/COPD exacerbation History of proximal atrial fibrillation History of hypertension Subjective: Offers no complaints. States much imroved breathing. No cough, chest pain or episodes of desaturation. No fevers or chills. States having trouble sleeping. Review of Systems Constitutional: Reports: see HPI. Objective Last 24 Hrs of Vital Signs/I&O Vital Signs Date Time Temp Pulse Resp B/P B/P Pulse O2 O2 Flow FiO2 Mean Ox Delivery Rate 12/19 0756 96 Nasal 3.0L Cannula 12/19 0742 97.8 67 20 101/54 92 Nasal 3.0L Cannula 12/19 0000 95 Nasal 4.0L Cannula 12/18 2313 67 120/62 12/18 2309 98.1 67 20 120/62 95 Nasal 4.0L Cannula 12/18 2244 Nasal 3.0L Cannula 12/18 1842 118/58 12/18 1600 95 Nasal 4.0L Cannula 12/18 1430 97.9 61 20 118/58 93 Nasal 4.0L Cannula 12/18 1429 Nasal 4.0L Cannula 12/18 1318 97.8 70 18 112/54 95 Nasal 4.0L Cannula Intake & Output 12/19 1600 12/19 0800 12/19 0000 Intake Total 240 120 Output Total Balance 240 120 Intake, Oral 240 120 Number 1 Bowel Movements Physical Exam General Appearance: Alert, Oriented X3, Cooperative Cardiovascular: Regular Rate, Normal S1, Normal S2 Lungs: Normal Air Movement, Inspiratory and expiratory wheezes. Abdomen: Normal Bowel Sounds, Soft, No Tenderness Extremities: No Clubbing, No Cyanosis, No Edema Current Medications: Current Medications Sig/Luis Start time Last Medication Dose Route Stop Time Status Admin Acetaminophen 650 MG Q6P PRN 12/18 1030 AC PO Acetaminophen 1,000 MG Q6P PRN 12/18 1030 AC IV Albuterol Sulfate 3 ML EVERY 4 HRS/AWAKE 12/19 0800 AC 12/19 INH 0753 Albuterol Sulfate 3 ML Q4P PRN 12/18 1000 DC 12/18 INH 2238 Albuterol Sulfate 2 PUF Q4-6 PRN PRN 12/18 1000 AC INH Allopurinol 300 MG DAILY 12/18 1000 AC 12/19 PO 0919 Amiodarone HCl 200 MG DAILY 12/18 1000 AC 12/19 PO 0919 Apixaban 5 MG BID 12/18 1000 AC 12/19 PO 0919 Atorvastatin Calcium 40 MG 1700 12/18 1700 AC 12/18 PO 1842 Azithromycin 500 MG DAILY 12/18 1030 AC 12/19 Sodium Chloride 250 ML IV 0920 Budesonide/ 2 PUF BID 12/18 1000 AC 12/19 Formoterol Fumarate INH 0919 Digoxin 0.125 MG DAILY 12/19 1000 DC PO Digoxin 0.125 MG DAILY 12/18 1845 AC 12/19 PO 0919 Diltiazem HCl 120 MG DAILY 12/18 1000 AC 12/19 PO 0919 Insulin Aspart 0 TIDAC 12/19 1200 AC SC Lisinopril 10 MG 2200 12/18 2200 AC 12/18 PO 2313 Lisinopril 10 MG DAILY 12/18 1000 DC PO Methylprednisolone 40 MG Q12 12/18 2200 AC 12/19 IV 0921 Omeprazole 20 MG DAILY AC 12/18 1027 AC 12/19 PO 0629 Oxycodone/ 2 TAB Q6P PRN 12/18 1030 AC Acetaminophen PO Spironolactone 25 MG 12/18 2200 AC 12/18 PO 2314 Spironolactone 25 MG DAILY 12/18 1000 DC PO Tiotropium [place] 1 PUF DAILY 12/18 1000 AC 12/19 INH 0920 Last 24 Hrs of Lab/Chacorta Results Last 24 Hrs of Labs/Mics: Laboratory Tests 12/19/16 0645: Anion Gap 10, Estimated GFR 46 L, BUN/Creatinine Ratio 21.3, CBC w Diff NO MAN DIFF REQ, RBC 3.70 L, MCV 95.3 H, MCH 31.8 H, RDW 15.1 H, MPV 8.9, Gran % 94.2 H, Lymphocytes % 3.2 L, Monocytes % 2.4, Eosinophils % 0, Basophils % 0.2 , Absolute Granulocytes 7.0 H, Absolute Lymphocytes 0.2 L, Absolute Monocytes 0.2, Absolute Eosinophils 0, Absolute Basophils 0, PUBS MCHC 33.3 Microbiology 12/18 141 LOWER RESP: Respiratory Culture - RES 12/19 1411 LOWER RESP: Gram Stain - RES Assessment/Plan Assessment: 71 year old gentleman her with COPD exacerbation. Supplemental oxygen with goal O2 > 92%. IV Soulmedrol, switch to PO in am, pending clinical course. TRC nebs, symbicort. Resp culture results pending. Discontinue Azithromycin. Continue other meds. Full code CC3 DVT prophylaxis with Eliquis. Problem List: 1. Acute exacerbation of chronic obstructive airways disease Pain Ratin Pain Location: N/A Pain Goal: Remain pain free Pain Plan: Not needed currently Tomorrow's Labs & Rationales: CBC for infection BEP for sodium monitoring
[2016-12-19 14:13] VITALS: BP 114/52
--- NOTE | 2016-12-19 20:24 | PN- Att Addend ---
Attending Addendum Attending Brief Note Patient looking and feeling better no respiratory distress, breathing better overall was even able to take a shower. Vital signs are stable better air entry , better oxygenation. To continue IV stiffness 24 more hours continue total respiratory care and oxygen. Reassess in the morning if stable switch to by mouth meds may be start disposition plans. 24 TOTALS 12/19 0000 12/18 0000 Intake Total 370 Output Total Balance 370 Intake, IV 250 Intake, Oral 120 Number 1 Bowel Movements Patient 189 lb Weight Weight Reported by Patient Measurement Method Current Medications Sig/Luis Start time Last Medication Dose Route Stop Time Status Admin Acetaminophen 650 MG Q6P PRN 12/18 1030 AC PO Acetaminophen 1,000 MG Q6P PRN 12/18 1030 AC IV Albuterol Sulfate 3 ML EVERY 4 HRS/AWAKE 12/19 0800 AC 12/19 INH 1614 Albuterol Sulfate 3 ML Q4P PRN 12/18 1000 DC 12/18 INH 2238 Albuterol Sulfate 2 PUF Q4-6 PRN PRN 12/18 1000 AC INH Allopurinol 300 MG DAILY 12/18 1000 AC 12/19 PO 0919 Amiodarone HCl 200 MG DAILY 12/18 1000 AC 12/19 PO 0919 Apixaban 5 MG BID 12/18 1000 AC 12/19 PO 0919 Atorvastatin Calcium 40 MG 1700 12/18 1700 AC 12/19 PO 1717 Azithromycin 500 MG DAILY 12/18 1030 AC 12/19 Sodium Chloride 250 ML IV 0920 Budesonide/ 2 PUF BID 12/18 1000 AC 12/19 Formoterol Fumarate INH 0919 Digoxin 0.125 MG DAILY 12/18 1845 AC 12/19 PO 0919 Diltiazem HCl 120 MG DAILY 12/18 1000 AC 12/19 PO 0919 Insulin Aspart 0 TIDAC 12/19 1200 AC 12/19 SC 1717 Lisinopril 10 MG 2200 12/18 2200 AC 12/18 PO 2313 Lisinopril 10 MG DAILY 12/18 1000 DC PO Methylprednisolone 40 MG Q12 12/18 2200 AC 12/19 IV 0921 Omeprazole 20 MG DAILY AC 12/18 1027 AC 12/19 PO 0629 Oxycodone/ 2 TAB Q6P PRN 12/18 1030 AC Acetaminophen PO Patient Medication 1 ED .STK-MED ONE 12/19 1314 DC Teaching ED 12/19 1315 Spironolactone 25 MG 12/18 AC 12/18 PO 2314 Spironolactone 25 MG DAILY 12/18 1000 DC PO Tiotropium [place] 1 PUF DAILY 12/18 1000 AC 12/19 INH 0920 Laboratory Tests 12/19/16 0645: Anion Gap 10, Estimated GFR 46 L, BUN/Creatinine Ratio 21.3, CBC w Diff NO MAN DIFF REQ, RBC 3.70 L, MCV 95.3 H, MCH 31.8 H, RDW 15.1 H, MPV 8.9, Gran % 94.2 H, Lymphocytes % 3.2 L, Monocytes % 2.4, Eosinophils % 0, Basophils % 0.2 , Absolute Granulocytes 7.0 H, Absolute Lymphocytes 0.2 L, Absolute Monocytes 0.2, Absolute Eosinophils 0, Absolute Basophils 0, PUBS MCHC 33.3 12/18/16 1115: Lactic Acid Cancelled 12/18/16 0823: Anion Gap 7, Estimated GFR 50 L, BUN/Creatinine Ratio 16.4, Glucose 96, Lactic Acid 1.0, Calcium 9.6, Total Bilirubin 0.9, AST 27, ALT 51, Alkaline Phosphatase 60, Troponin I < 0.01, [id number] Pept 261 H, Total Protein 5.7 L, Albumin 3.7, Globulin 2.0, Albumin/Globulin Ratio 1.9, CBC w Diff NO MAN DIFF REQ, RBC 4.00 L, MCV 95.1 H, MCH 31.7 H, RDW 15.6 H, MPV 8.1, Gran % 68.4, Lymphocytes % 12.5 L, Monocytes % 10.8 H, Eosinophils % 7.8 H, Basophils % 0.5, Absolute Granulocytes 7.5 H, Absolute Lymphocytes 1.4, Absolute Monocytes 1.2 H, Absolute Eosinophils 0.8, Absolute Basophils 0, PUBS MCHC 33.3, Digoxin 1.0 12/18/16 0816: [id number]-Yjezjlkzkll Pept Cancelled Microbiology 12/18 822 NASOPHARYN: Influenza Virus A & B Rapid Smear - COMP
[2016-12-19 21:38] VITALS: BP 109/61
--- NOTE | 2016-12-20 07:21 | PN- Pulmonary ---
Subjective HPI/Critical Care Issues: Patient feels improved now on oral prednisone continues to require supplemental oxygen Objective Current Medications: Current Medications Sig/Luis Start time Last Medication Dose Route Stop Time Status Admin Acetaminophen 650 MG Q6P PRN 12/18 1030 AC PO Acetaminophen 1,000 MG Q6P PRN 12/18 1030 AC IV Albuterol Sulfate 3 ML EVERY 4 HRS/AWAKE 12/19 0800 AC 12/19 INH 2020 Albuterol Sulfate 2 PUF Q4-6 PRN PRN 12/18 1000 AC INH Allopurinol 300 MG DAILY 12/18 1000 AC 12/19 PO 0919 Amiodarone HCl 200 MG DAILY 12/18 1000 AC 12/19 PO 0919 Apixaban 5 MG BID 12/18 1000 AC 12/19 PO 2247 Atorvastatin Calcium 40 MG 1700 12/18 1700 AC 12/19 PO 1717 Azithromycin 500 MG DAILY 12/18 1030 AC 12/19 Sodium Chloride 250 ML IV 0920 Budesonide/ 2 PUF BID 12/18 1000 AC 12/19 Formoterol Fumarate INH 2254 Digoxin 0.125 MG DAILY 12/18 1845 AC 12/19 PO 0919 Diltiazem HCl 120 MG DAILY 12/18 1000 AC 12/19 PO 0919 Insulin Aspart 0 TIDAC 12/19 1200 AC 12/19 SC 1717 Lisinopril 10 MG 2200 12/18 2200 AC 12/19 PO 2249 Melatonin 5 MG AT BEDTIME 12/19 2330 AC 12/20 PO 0004 Methylprednisolone 40 MG Q12 12/18 2200 AC 12/19 IV 2247 Omeprazole 20 MG DAILY AC 12/18 1027 AC 12/20 PO 0600 Oxycodone/ 2 TAB Q6P PRN 12/18 1030 AC Acetaminophen PO Patient Medication 1 ED .STK-MED ONE 12/19 1314 DC Teaching ED 12/19 1315 Spironolactone 25 MG 2200 12/18 2200 AC 12/19 PO 2247 Tiotropium [place] 1 PUF DAILY 12/18 1000 AC 12/19 INH 0920 Vital Signs & I&O Last 24 Hrs of Vitals and I&O: Vital Signs Date Time Temp Pulse Resp B/P B/P Pulse O2 O2 Flow FiO2 Mean Ox Delivery Rate 12/20 0000 Nasal 3.0L Cannula 12/19 2249 116/58 12/198 97.8 66 20 109/61 93 Nasal 3.0L Cannula 12/19 1616 93 Nasal 3.0L Cannula 12/19 1413 98.4 69 20 114/52 91 Nasal 3.0L Cannula 12/19 0800 Nasal 3.0L Cannula 12/19 0756 96 Nasal 3.0L Cannula 12/19 0742 97.8 67 20 101/54 92 Nasal 3.0L Cannula Intake & Output 12/20 0800 12/20 0000 12/19 1600 Intake Total 800 Output Total Balance 800 Intake, Oral 800 Since saturation 3 L 93% exam of his chest shows diminished breath sounds are no wheezes cardiac exam shows regular S1 and S2 without murmurs Impression/Plan Impression/Plan Impression/Plan: 71-year-old gentleman with severe oxygen-dependent COPD chronic respiratory failure admitted with acute shortness of breath secondary to exacerbation of COPD. Chest x-ray does not demonstrate pneumonia. He is clinically improved Recommendations: Slow prednisone taper complete course of antibiotics. Ambulate and assess [place] saturations. Anticipate discharge later today or tomorrow
[2016-12-20 07:41] VITALS: BP 103/54
[2016-12-20 08:30] LABS: ABSOLUTE BASOPHIL COUNT 0 /CUMM (0.0-0.2); ABSOLUTE EOSINOPHIL COUNT 0 /CUMM (0.0-0.7); ABSOLUTE GRANULOCYTE CT 15.5 /CUMM (1.4-6.5); ABSOLUTE LYMPH COUNT 0.2 /CUMM (1.2-3.4); ABSOLUTE MONOCYTE COUNT 0.7 /CUMM (0.10-0.60); BASOPHIL % 0 % (0.0-2.0); EOSINOPHIL % 0 % (0-5); GRANULOCYTE % 94.9 % (42.2-75.2); HEMATOCRIT 35.1 % (42-52); MEAN CORPUSCULAR HGB 31.4 PG (27.0-31.0); MEAN CORPUSCULAR HGB CONC 32.8 G/DL (33.0-37.0); MEAN CORPUSCULAR VOLUME 95.7 FL (80.0-94.0); PLATELET COUNT 219 /CUMM (130-400); RBC DISTRIBUTION WIDTH 15.4 % (11.5-14.5); RED BLOOD CELL CT 3.67 /CUMM (4.70-6.10)
[2016-12-20 09:02] LABS: WHITE BLOOD CELL COUNT 16.4 /CUMM (4.8-10.8)
--- NOTE | 2016-12-20 12:25 | PN- Att Addend ---
Attending Addendum Attending Brief Note Patient slowly improving in no acute distress. Oxygen is on. Vital signs are stable no fever no major changes on physical. Appreciate Dr. Morales input and recommendations to observe the patient 1 more day patient will increase activity and continue medications for now Current Medications Sig/Luis Start time Last Medication Dose Route Stop Time Status Admin Acetaminophen 650 MG Q6P PRN 12/18 1030 AC PO Acetaminophen 1,000 MG Q6P PRN 12/18 1030 AC IV Albuterol Sulfate 3 ML EVERY 4 HRS/AWAKE 12/19 0800 AC 12/20 INH 1219 Albuterol Sulfate 2 PUF Q4-6 PRN PRN 12/18 1000 AC INH Allopurinol 300 MG DAILY 12/18 1000 AC 12/20 PO 0912 Amiodarone HCl 200 MG DAILY 12/18 1000 AC 12/20 PO 0912 Apixaban 5 MG BID 12/18 1000 AC 12/20 PO 0912 Atorvastatin Calcium 40 MG 1700 12/18 1700 AC 12/19 PO 1717 Azithromycin 500 MG DAILY 12/21 1000 AC PO 12/22 1001 Azithromycin 500 MG DAILY 12/18 1030 DC 12/20 Sodium Chloride 250 ML IV 0911 Budesonide/ 2 PUF BID 12/18 1000 AC 12/20 Formoterol Fumarate INH 0911 Digoxin 0.125 MG DAILY 12/18 1845 AC 12/20 PO 0912 Diltiazem HCl 120 MG DAILY 12/18 1000 AC 12/20 PO 0911 Insulin Aspart 0 TIDAC 12/19 1200 AC 12/20 SC 0755 Lisinopril 10 MG 2200 12/18 2200 AC 12/19 PO 2249 Melatonin 5 MG AT BEDTIME 12/19 2330 AC 12/20 PO 0004 Methylprednisolone 40 MG Q12 12/18 2200 DC 12/20 IV 0911 Omeprazole 20 MG DAILY AC 12/18 1027 AC 12/20 PO 0600 Oxycodone/ 2 TAB Q6P PRN 12/18 1030 AC Acetaminophen PO Patient Medication 1 ED .STK-MED ONE 12/19 1314 DC Teaching ED 12/19 1315 Prednisone 5 MG DAILY 01/01 1000 AC PO 01/03 1001 Prednisone 10 MG DAILY 12/29 1000 AC PO 12/31 1001 Prednisone 20 MG DAILY 12/26 1000 AC PO 12/28 1001 Prednisone 30 MG DAILY 12/23 1000 AC PO 12/25 1001 Prednisone 40 MG DAILY 12/20 1130 AC PO 12/22 1001 Prednisone 40 MG TAPER 12/20 1100 CAN PO 01/04 1059 Spironolactone 25 MG 2200 12/18 220 AC 12/19 PO 2247 Tiotropium [place] 1 PUF DAILY 12/18 1000 AC 12/20 INH 0911 Laboratory Tests 12/20/16 0637: Anion Gap 14, Estimated GFR 37 L, BUN/Creatinine Ratio 23.3, CBC w Diff MAN DIFF ORDERED, RBC 3.67 L, MCV 95.7 H, MCH 31.4 H, RDW 15.4 H, MPV 9.0, Gran % 94.9 H, Lymphocytes % 1.1 L, Monocytes % 4.0, Eosinophils % 0, Basophils % 0 L, Absolute Granulocytes 15.5 H, Absolute Lymphocytes 0.2 L, Absolute Monocytes 0.7 H, Absolute Eosinophils 0, Absolute Basophils 0, Platelet Estimate VERIFIED BY SMEAR, Polychromasia 1+, Poikilocytosis 1+, Anisocytosis 1+ , Ovalocytes 1+, PUBS MCHC 32.8 L Vital Signs Date Time Temp Pulse Resp B/P B/P Pulse O2 O2 Flow FiO2 Mean Ox Delivery Rate 12/20 0912 70 104/54 12/20 0912 70 104/54 12/20 0804 93 Nasal 3.0L Cannula 12/20 0800 94 Nasal 4.0L Cannula 12/20 0741 97.4 70 20 103/54 94 Nasal 3.0L Cannula
--- NOTE | 2016-12-20 12:38 | PN- Housestaff ---
Subjective Follow-up For: Acute hypoxemia/COPD exacerbation History of proximal atrial fibrillation History of hypertension Subjective: Offers no complaints. States much imroved breathing. No cough, chest pain or episodes of desaturation. No fevers or chills. Reports better sleep. Review of Systems Constitutional: Reports: see HPI. Objective Last 24 Hrs of Vital Signs/I&O Vital Signs Date Time Temp Pulse Resp B/P B/P Pulse O2 O2 Flow FiO2 Mean Ox Delivery Rate 12/20 0912 70 104/54 12/20 0912 70 104/54 12/20 0804 93 Nasal 3.0L Cannula 12/20 0800 94 Nasal 4.0L Cannula 12/20 0741 97.4 70 20 103/54 94 Nasal 3.0L Cannula 12/20 0000 Nasal 3.0L Cannula 12/19 2249 116/58 12/19 2138 97.8 66 20 109/61 93 Nasal 3.0L Cannula 12/19 1616 93 Nasal 3.0L Cannula 12/19 1413 98.4 69 20 114/52 91 Nasal 3.0L Cannula Physical Exam General Appearance: Alert, Oriented X3, Cooperative Cardiovascular: Regular Rate, Normal S1, Normal S2 Lungs: Diminished breath sounds. Expiratory wheezes. Abdomen: Normal Bowel Sounds, Soft, No Tenderness Extremities: No Clubbing, No Cyanosis, No Edema Current Medications: Current Medications Sig/Luis Start time Last Medication Dose Route Stop Time Status Admin Acetaminophen 650 MG Q6P PRN 12/18 1030 AC PO Acetaminophen 1,000 MG Q6P PRN 12/18 1030 AC IV Albuterol Sulfate 3 ML EVERY 4 HRS/AWAKE 12/19 0800 AC 12/20 INH 1219 Albuterol Sulfate 2 PUF Q4-6 PRN PRN 12/18 1000 AC INH Allopurinol 300 MG DAILY 12/18 1000 AC 12/20 PO 0912 Amiodarone HCl 200 MG DAILY 12/18 1000 AC 12/20 PO 0912 Apixaban 5 MG BID 12/18 1000 AC 12/20 PO 0912 Atorvastatin Calcium 40 MG 1700 12/18 1700 AC 12/19 PO 1717 Azithromycin 500 MG DAILY 12/21 1000 AC PO 12/22 1001 Azithromycin 500 MG DAILY 12/18 1030 DC 12/20 Sodium Chloride 250 ML IV 0911 Budesonide/ 2 PUF BID 12/18 1000 AC 05/25 Formoterol Fumarate INH 0911 Digoxin 0.125 MG DAILY 12/18 1845 AC 12/20 PO 0912 Diltiazem HCl 120 MG DAILY 12/18 1000 AC 12/20 PO 0911 Insulin Aspart 0 TIDAC 12/19 1200 AC 12/20 SC 0755 Lisinopril 10 MG 12/18 2200 AC 12/19 PO 2249 Melatonin 5 MG AT BEDTIME 12/19 2330 AC 12/20 PO 0004 Methylprednisolone 40 MG Q12 12/18 2200 DC 12/20 IV 0911 Omeprazole 20 MG DAILY AC 12/18 1027 AC 12/20 PO 0600 Oxycodone/ 2 TAB Q6P PRN 12/18 1030 AC Acetaminophen PO Patient Medication 1 ED .STK-MED ONE 12/19 1314 MT Teaching ED 12/19 1315 Prednisone 5 MG DAILY 01/01 1000 AC PO 01/03 1001 Prednisone 10 MG DAILY 12/29 1000 AC PO 12/31 1001 Prednisone 20 MG DAILY 12/26 1000 AC PO 12/28 1001 Prednisone 30 MG DAILY 12/23 1000 AC PO 12/25 1001 Prednisone 40 MG DAILY 12/20 1130 AC PO 12/22 1001 Prednisone 40 MG TAPER 12/20 1100 CAN PO 01/04 1059 Spironolactone 25 MG 12/18 2200 AC 12/19 PO 2247 Tiotropium [place] 1 PUF DAILY 12/18 1000 AC 12/20 INH 0911 Last 24 Hrs of Lab/[place] Results Last 24 Hrs of Labs/Mics: Laboratory Tests 12/20/16 0637: Anion Gap 14, Estimated GFR 37 L, BUN/Creatinine Ratio 23.3, CBC w Diff MAN DIFF ORDERED, RBC 3.67 L, MCV 95.7 H, MCH 31.4 H, RDW 15.4 H, MPV 9.0, Gran % 94.9 H, Lymphocytes % 1.1 L, Monocytes % 4.0, Eosinophils % 0, Basophils % 0 L, Absolute Granulocytes 15.5 H, Absolute Lymphocytes 0.2 L, Absolute Monocytes 0.7 H, Absolute Eosinophils 0, Absolute Basophils 0, Platelet Estimate VERIFIED BY SMEAR, Polychromasia 1+, Poikilocytosis 1+, Anisocytosis 1+ , Ovalocytes 1+, PUBS MCHC 32.8 L Assessment/Plan Assessment: 71 year old gentleman her with COPD exacerbation. Supplemental oxygen with goal O2 > 92%. PO Soulmedrol with prolonged taper. TRC nebs, symbicort. Azithromycin to complete 5 day course. Continue other meds. Discharge in am. Full code CC3 DVT prophylaxis with Eliquis. Problem List: 1. Acute exacerbation of chronic obstructive airways disease Pain Ratin Pain Location: None Pain Goal: Remain pain free Pain Plan: As needed Tomorrow's Labs & Rationales: Not needed
[2016-12-20] MEDS ORDERED: AZITHROMYCIN500 M3 PO (12:53)
[2016-12-20] MEDS ORDERED: PREDNISONE10 M2 PO (12:53)
[2016-12-20 14:20] VITALS: BP 112/54
[2016-12-20 21:35] VITALS: BP 110/50
[2016-12-21 06:45] VITALS: BP 114/77
--- NOTE | 2016-12-21 08:01 | PN- Pulmonary ---
Subjective HPI/Critical Care Issues: Patient feels well shortness of breath markedly improved Objective Current Medications: Current Medications Sig/Luis Start time Last Medication Dose Route Stop Time Status Admin Acetaminophen 650 MG Q6P PRN 12/18 1030 AC PO Acetaminophen 1,000 MG Q6P PRN 12/18 1030 AC IV Albuterol Sulfate 3 ML EVERY 4 HRS/AWAKE 12/19 0800 AC 12/21 INH 0751 Albuterol Sulfate 2 PUF Q4-6 PRN PRN 12/18 1000 AC INH Allopurinol 300 MG DAILY 12/18 1000 AC 12/20 PO 0912 Amiodarone HCl 200 MG DAILY 12/18 1000 AC 12/20 PO 0912 Apixaban 5 MG BID 12/18 1000 AC 12/20 PO 2153 Atorvastatin Calcium 40 MG 1700 12/18 1700 AC 12/20 PO 1725 Azithromycin 500 MG DAILY 12/21 1000 AC PO 12/22 1001 Azithromycin 500 MG DAILY 12/18 1030 DC 12/20 Sodium Chloride 250 ML IV 0911 Budesonide/ 2 PUF BID 12/18 1000 AC 12/20 Formoterol Fumarate INH 2153 Digoxin 0.125 MG DAILY 12/18 1845 AC 12/20 PO 0912 Diltiazem HCl 120 MG DAILY 12/18 1000 AC 12/20 PO 0911 Insulin Aspart 0 TIDAC 12/19 1200 AC 12/20 SC 1725 Lisinopril 10 MG 2200 12/18 2200 AC 12/20 PO 2153 Melatonin 5 MG AT BEDTIME 12/19 2330 AC 12/20 PO 2153 Methylprednisolone 40 MG Q12 12/18 2200 DC 12/20 IV 0911 Omeprazole 20 MG DAILY AC 12/18 1027 AC 12/20 PO 0600 Oxycodone/ 2 TAB Q6P PRN 12/18 1030 AC Acetaminophen PO Prednisone 5 MG DAILY 01/01 1000 AC PO 01/03 1001 Prednisone 10 MG DAILY 12/29 1000 AC PO 12/31 1001 Prednisone 20 MG DAILY 12/26 1000 AC PO 12/28 1001 Prednisone 30 MG DAILY 12/23 1000 AC PO 12/25 1001 Prednisone 40 MG DAILY 12/20 1130 AC 12/20 PO 12/22 1001 1238 Prednisone 40 MG TAPER 12/20 1100 CAN PO 01/04 1059 Spironolactone 25 MG 2200 12/18 2200 AC 12/20 PO 2153 Tiotropium [place] 1 PUF DAILY 12/18 1000 AC 12/20 INH 0911 Vital Signs & I&O Last 24 Hrs of Vitals and I&O: Vital Signs Date Time Temp Pulse Resp B/P B/P Pulse O2 O2 Flow FiO2 Mean Ox Delivery Rate 12/21 0755 96 Nasal 3.0L Cannula 12/21 0645 97.5 73 20 114/77 92 Nasal 3.0L Cannula 12/21 0000 96 Nasal 3.0L Cannula 12/20 2153 67 110/50 12/20 2135 98.2 67 22 110/50 96 Nasal 3.0L Cannula 12/20 1953 96 Nasal 3.0L Cannula 12/20 1631 94 Nasal Cannula 12/20 1600 Nasal 3.0L Cannula 12/20 1420 97.1 68 20 112/54 97 Nasal 3.0L Cannula 12/20 0912 70 104/54 12/20 0912 70 104/54 12/20 0804 93 Nasal 3.0L Cannula Intake & Output 12/21 1600 12/21 0800 12/21 0000 Intake Total 490 800 Output Total Balance 490 800 Intake, IV 10 Intake, Oral 480 800 Number 0 Bowel Movements Since saturation 3 L 96% exam of his chest shows decreased breath sounds are no wheezes cardiac exam shows regular S1 and S2 without murmurs Impression/Plan Impression/Plan Impression/Plan: 71-year-old gentleman with severe oxygen-dependent COPD chronic respiratory failure admitted with acute shortness of breath secondary to exacerbation of COPD. Chest x-ray does not demonstrate pneumonia. He is clinically improved and appears ready for discharge from a pulmonary standpoint Recommendations: Slow prednisone taper complete course of antibiotics. Ambulate and assess oxygen saturations. Anticipate discharge today and other medical issues are stable. Note creatinine has risen and should be rechecked prior to discharge. Please arrange office follow-up
[2016-12-21 09:15] VITALS: BP 114/77
--- NOTE | 2016-12-21 11:42 | PN- Housestaff ---
Subjective Follow-up For: COPD exacerbation Subjective: Offers no complaints. States much imroved breathing. No cough, chest pain or episodes of desaturation. No fevers or chills. Review of Systems Constitutional: Reports: see HPI. Objective Last 24 Hrs of Vital Signs/I&O Vital Signs Date Time Temp Pulse Resp B/P B/P Pulse O2 O2 Flow FiO2 Mean Ox Delivery Rate 12/21 0915 97.5 73 20 114/12/21 0915 97.5 73 20 114/12/21 0800 Nasal 3.0L Cannula 12/21 0755 96 Nasal 3.0L Cannula 12/21 0645 97.5 73 20 114/77 92 Nasal 3.0L Cannula 12/21 0000 96 Nasal 3.0L Cannula 12/20 2153 67 110/50 12/20 2135 98.2 67 22 110/50 96 Nasal 3.0L Cannula 12/20 1953 96 Nasal 3.0L Cannula 12/20 1631 94 Nasal Cannula 12/20 1600 Nasal 3.0L Cannula 12/20 1420 97.1 68 20 112/54 97 Nasal 3.0L Cannula Intake & Output 12/21 1600 12/21 0800 12/21 0000 Intake Total 490 800 Output Total Balance 490 800 Intake, IV 10 Intake, Oral 480 800 Number 0 Bowel Movements Physical Exam General Appearance: Alert, Oriented X3, Cooperative Cardiovascular: Regular Rate, Normal S1, Normal S2 Lungs: Clear to Auscultation, Normal Air Movement Abdomen: Normal Bowel Sounds, Soft, No Tenderness Extremities: No Clubbing, No Cyanosis Current Medications: Current Medications Sig/Lius Start time Last Medication Dose Route Stop Time Status Admin Acetaminophen 650 MG Q6P PRN 12/18 1030 AC PO Acetaminophen 1,000 MG Q6P PRN 12/18 1030 AC IV Albuterol Sulfate 3 ML EVERY 4 HRS/AWAKE 12/19 0800 AC 12/21 INH 0751 Albuterol Sulfate 2 PUF Q4-6 PRN PRN 12/18 1000 AC INH Allopurinol 300 MG DAILY 12/18 1000 AC 12/21 PO 0916 Amiodarone HCl 200 MG DAILY 12/18 1000 AC 12/21 PO 0915 Apixaban 5 MG BID 12/18 1000 AC 12/21 PO 0915 Atorvastatin Calcium 40 MG 1700 12/18 1700 AC 12/20 PO 1725 Azithromycin 500 MG DAILY 12/21 1000 AC 12/21 PO 12/22 1001 0916 Budesonide/ 2 PUF BID 12/18 1000 AC 12/21 Formoterol Fumarate INH 0915 Digoxin 0.125 MG DAILY 12/18 1845 AC 12/21 PO 0915 Diltiazem HCl 120 MG DAILY 12/18 1000 AC 12/21 PO 0915 Insulin Aspart 0 TIDAC 12/19 1200 AC 12/20 SC 1725 Lisinopril 10 MG 2200 12/18 2200 AC 12/20 PO 2153 Melatonin 5 MG AT BEDTIME 12/19 2330 AC 12/20 PO 2153 Omeprazole 20 MG DAILY AC 12/18 1027 AC 12/20 PO 0600 Oxycodone/ 2 TAB Q6P PRN 12/18 1030 AC Acetaminophen PO Prednisone 5 MG DAILY 01/01 1000 AC PO 01/03 1001 Prednisone 10 MG DAILY 12/29 1000 AC PO 12/31 1001 Prednisone 20 MG DAILY 12/26 1000 AC PO 12/28 1001 Prednisone 30 MG DAILY 12/23 1000 AC PO 12/25 1001 Prednisone 40 MG DAILY 12/20 1130 AC 12/21 PO 12/22 1001 0916 Spironolactone 25 MG 0 12/18 2200 AC 12/20 PO 2153 Tiotropium [place] 1 PUF DAILY 12/18 1000 AC 12/21 INH 0915 Assessment/Plan Assessment: 71 year old gentleman her with COPD exacerbation. Supplemental oxygen with goal O2 > 92%. PO Soulmedrol with prolonged taper. TRC nebs, symbicort. Azithromycin to complete 5 day course. Continue other meds. Ready for discharge. Full code CC3 DVT prophylaxis with Eliquis. Problem List: 1. COPD Pain Ratin Pain Location: None Pain Goal: Remain pain free Pain Plan: None Tomorrow's Labs & Rationales: Discharged
--- NOTE | 2016-12-21 18:19 | PN- Att Addend ---
Attending Addendum Attending Brief Note Patient better today in no respiratory distress oxygen on a little signs are stable no fever no new changes on physical patient was cleared by pulmonary to go home taper steroids slowly continue all other treatments. See discharge summary and orders written I will follow patient as an outpatient. Intake & Output 12/21 1600 Intake Total 800 Output Total 400 Balance 400 Intake, Oral 800 Output, Urine 400
--- NOTE | 2016-12-21 18:33 | Discharge Summary ---
Visit Information Visit Dates Admission Date: 12/18/16 Discharge Date: 12/21/16 Hospital Course Course Attending Physician: DESHAWN LOPEZ MD Primary Care Physician: DESHAWN LOPEZ MD Consulting Request: Consulting Specialty: Pulmonary Disease Consulting Physician: Dr. Keller Reason for Consult: Exacerbation of COPD Hospital Course: 71-year-old white male known history of COPD with again a recent exacerbation with increased shortness of breath cough and wheezes comes to the hospital again with an exacerbation of his COPD needing IV steroids respiratory therapy. He was seen by Dr. Keller will be followed his recommendations. Patient slowly improved and was stable enough to be discharged on December 21 home with home oxygen and medications and follow with pulmonary and myself Complications: None Allergies: Coded Allergies: NO KNOWN ALLERGIES (08/21/15) Significant Procedures: SERVICE DATE: 12/18/16 EXAM TYPE: RAD - XRY-CHEST XRAY, PA AND LATERAL EXAMINATION: XR CHEST CLINICAL INFORMATION: 1-year-old male patient with shortness of breath, COPD, and CHF. COMPARISON: Prior chest x-rays done 05/15/2016 and 08/16/2016. TECHNIQUE: AP and lateral erect views of the chest. FINDINGS: Reexamination shows the heart to be normal in size. There is symmetric hyperaeration of both lungs consistent with COPD. The aortic arch is calcified and dilated but not changed. In the past, the main pulmonary artery segment has been markedly dilated. This has also not changed. There is no sign of consolidation or pulmonary edema. The pleural spaces are free of fluid accumulation. Old healed rib fractures are present on the right. IMPRESSION: No evidence of pneumonia or pulmonary edema. COPD. Chronic dilated calcified aortic arch and prominent main pulmonary artery. Pertinent Lab Results: EKG shows atrial fibrillation with normal ventricular response Laboratory Tests 12/19/16 0645: Anion Gap 10, Estimated GFR 46 L, BUN/Creatinine Ratio 21.3, CBC w Diff NO MAN DIFF REQ, RBC 3.70 L, MCV 95.3 H, MCH 31.8 H, RDW 15.1 H, MPV 8.9, Gran % 94.2 H, Lymphocytes % 3.2 L, Monocytes % 2.4, Eosinophils % 0, Basophils % 0.2 , Absolute Granulocytes 7.0 H, Absolute Lymphocytes 0.2 L, Absolute Monocytes 0.2, Absolute Eosinophils 0, Absolute Basophils 0, PUBS MCHC 33.3 12/18/16 1115: Lactic Acid Cancelled 12/18/16 0823: Anion Gap 7, Estimated GFR 50 L, BUN/Creatinine Ratio 16.4, Glucose 96, Lactic Acid 1.0, Calcium 9.6, Total Bilirubin 0.9, AST 27, ALT 51, Alkaline Phosphatase 60, Troponin I < 0.01, Kue-V-Smysmvyfxsr Pept 261 H, Total Protein 5.7 L, Albumin 3.7, Globulin 2.0, Albumin/Globulin Ratio 1.9, CBC w Diff NO MAN DIFF REQ, RBC 4.00 L, MCV 95.1 H, MCH 31.7 H, RDW 15.6 H, MPV 8.1, Gran % 68.4, Lymphocytes % 12.5 L, Monocytes % 10.8 H, Eosinophils % 7.8 H, Basophils % 0.5, Absolute Granulocytes 7.5 H, Absolute Lymphocytes 1.4, Absolute Monocytes 1.2 H, Absolute Eosinophils 0.8, Absolute Basophils 0, PUBS MCHC 33.3, Digoxin 1.0 12/18/16 0816: Qba-O-Xarofibtnck Pept Cancelled Microbiology 12/18 822 NASOPHARYN: Influenza Virus A & B Rapid Smear - COMP 12/20/16 0637: Anion Gap 14, Estimated GFR 37 L, BUN/Creatinine Ratio 23.3, CBC w Diff MAN DIFF ORDERED, RBC 3.67 L, MCV 95.7 H, MCH 31.4 H, RDW 15.4 H, MPV 9.0, Gran % 94.9 H, Lymphocytes % 1.1 L, Monocytes % 4.0, Eosinophils % 0, Basophils % 0 L, Absolute Granulocytes 15.5 H, Absolute Lymphocytes 0.2 L, Absolute Monocytes 0.7 H, Absolute Eosinophils 0, Absolute Basophils 0, Platelet Estimate VERIFIED BY SMEAR, Polychromasia 1+, Poikilocytosis 1+, Anisocytosis 1+ , Ovalocytes 1+, PUBS MCHC 32.8 L Disposition Summary Disposition Principal Diagnosis: Exacerbation of COPD Additional Diagnosis: Atrial fibrillation History of congestive heart failure Hyperlipidemia GERD Diabetes mellitus 2 Discharge Disposition: home health services Discharge Instructions General Discharge Information Code Status: Full Code Patient's Diet: Healthy heart low sugar Patient's Activity: Self-limited Follow-Up Instructions/Appts: Follow-up with Dr. Lopez and pulmonary Medications at Discharge Discharge Medications: Stop taking the following medications: Prednisone (Prednisone) 10 MG TABLET ORAL DAILY Qty = 12 Continue taking these medications: Albuterol Sulfate (Ventolin Hfa) 90 MCG HFA.AER.AD 2 Puff Inhale through mouth EVERY 4-6 HOURS NEEDED as needed for SHORTNESS OF BREATH Comments: Last Taken:12/21/16 Time:1000 Fluticasone/Salmeterol (Advair 250-50 Diskus) 250 MCG-50 MCG/DOSE BLST.W.DEV 1 Puff Inhale through mouth TWICE DAILY Comments: NOT GIVEN Apixaban (Eliquis) 5 MG TABLET 1 Tablet ORAL TWICE DAILY Comments: Last Taken:12/21/16 Time:9AM Albuterol Sulfate (Albuterol Sulfate) 2.5 MG/3 ML (0.083 %) VIAL.NEB 1 Vial Inhale Solution EVERY 4 HOURS NEEDED as needed for SHORTNESS OF BREATH Comments: Last Taken:12/20/16 Time:1200 Allopurinol (Allopurinol) 300 MG TABLET 1 Half Tablet ORAL DAILY Comments: Last Taken:12/21/16 Time:9AM Atorvastatin Calcium (Lipitor) 40 MG TABLET 1 Tablet ORAL Every night Comments: Last Taken:12/20/16 Time:5PM Digoxin (Digoxin) 125 MCG TABLET 1 Tablet ORAL DAILY Comments: Last Taken:12/21/16 Time:9AM Amiodarone HCl (Amiodarone HCl) 200 MG TABLET 1 Tablet ORAL DAILY Comments: Last Taken:12/21/16 Time:9AM Pantoprazole Sodium (Protonix) 20 MG TABLET.DR 1 Tablet ORAL DAILY Comments: Last Taken:12/20/16 Time:7AM Lisinopril (Lisinopril) 10 MG TABLET 1 Tablet ORAL DAILY Instructions: Reason to Stop at ADM: CHAKA Comments: Last Taken:12/20/16 Time:10PM Tiotropium [place] (Spiriva) 18 MCG CAP.W.DEV 1 PUFF Inhale through mouth DAILY Comments: Last Taken:12/21/16 Time:9AM Spironolactone (Aldactone) 25 MG TABLET 1 Tablet ORAL DAILY Qty = 30 Comments: Last Taken:12/20/16 Time:10PM Diltiazem HCl (Cartia Xt) 120 MG CAP.ER.24H 1 Capsule ORAL DAILY Qty = 90 Comments: Last Taken:12/21/16 Time:9AM Start taking the following new medications: Azithromycin (Azithromycin) 500 MG TABLET 500 Milligram ORAL DAILY Days = 2 No Refills Comments: Last Taken:12/21/16 Time:9AM Prednisone (Prednisone) 10 MG TABLET 0 ORAL TAPER Qty = 26 No Refills Instructions: TAKE 40 MG FOR 2 DAYS STARTING 12/21. (8) TAKE 30 MG FOR 3 DAYS. (9) THEN TAKE 20 MG FOR 3 DAYS. (6) THEN TAKE 10 MG FOR 3 DAYS. (3) THEN FOLLOW UP WITH DR. ESPINO AN OUTPATIENT. Comments: Last Taken:12/21/16 Time:9AM 40MG GIVEN Copies To: KENZIE MENON,MAIRA Arreguin; DESHAWN LOPEZ MD Attending MD Review Statement Documenting Attending: DESHAWN LOPEZ MD
== END 2016-12-21 14:26 | DRG 191 ==
LOC: ERH 07:37 → 2NB 09:42 → ERHI 09:42 → ENRESERV 12:45 → ENTRNSPT 13:51 → EDTRNSPTTYP 14:06 → CMPTRNSPT 14:17 → 2NB 14:25 → ENPENDDIS 12-21 11:34 → 2NB 12-21 14:26
PROVIDERS: Internal Medicine; Internal Medicine Hematology & Oncology; Physician Assistant; ADMIT Internal Medicine
DX: J44.1 Chronic obstructive pulmonary disease with (acute) exacerbation (principal); J96.11 Chronic respiratory failure with hypoxia; I13.0 Hypertensive heart and chronic kidney disease with heart failure and stage 1 through stage 4 chronic kidney disease, or unspecified chronic kidney disease; E11.22 Type 2 diabetes mellitus with diabetic chronic kidney disease; I50.9 Heart failure, unspecified; I48.2 Chronic atrial fibrillation; Z99.81 Dependence on supplemental oxygen; Z79.01 Long term (current) use of anticoagulants; N18.9 Chronic kidney disease, unspecified; K21.9 Gastro-esophageal reflux disease without esophagitis; E78.5 Hyperlipidemia, unspecified; M10.9 Gout, unspecified; Z87.891 Personal history of nicotine dependence
CPT/HCPCS: 2NBP; 36415; 82436; 87070; 87804; 87804-59; 93005; 93010; 96365; 96366; 96375; J0131; J0456; J2920; J2930; J3490; J7040

== ENCOUNTER 2017-01-04 10:21 | Emergency (ER) | payer OTHER ==
[~2017-01-04 10:21] MED LIST changes: +AZITHROMYCIN500 M3 PO; +CARTIA XT120 M1 PO
--- NOTE | 2017-01-04 10:39 | ED UPPER/LOWER EXTREMITY COMPL ---
History of Present Illness General Chief Complaint: Lower Extremity Problems Stated Complaint: RT KNEE SWELLING Source: patient Exam Limitations: no limitations Allergies Coded Allergies: NO KNOWN ALLERGIES (08/21/15) Triage Note: PT TO ED C/O RT KNEE SWELLING. DENIES ANY INJURY/TRAUMA TO AREA. STATES IT STARTED YESTERDAY. STATES PAINFUL TO WALK ON IT. IS ON 2L O2 VIA [place] CHRONICALLY FOR COPD. Triage Nurses Notes Reviewed? yes Onset: Gradual Duration: day(s): (1) Timing: remote history Severity: moderate Severity Numbers: 7 Pain/Injury Location: Right: Knee. Method of Injury: unknown Modifying Factors: Improves With: immobilization. HPI: Patient is a 71-year-old male with history of bilateral knee replacement presenting to the emergency department with chief complaint of right knee swelling times one day. He reports pain in the right knee with bending. Reports that "feels tight". Denies any fevers or chills. No known trauma. No numbness or tingling. Denies any calf pain. Denies taking anything to help. No nausea or vomiting. Denies any redness. Denies any rashes. No tick bites. (GENEVIEVE DEL VALLE,JAD) Vital Signs & Intake/Output Vital Signs & Intake/Output Vital Signs Date Time Temp Pulse Resp B/P B/P Pulse O2 O2 Flow FiO2 Mean Ox Delivery Rate 01/04 1341 112/62 01/04 1300 60 18 110/60 98 Nasal 2.0L Cannula 01/04 1143 97.1 64 17 96/48 98 Nasal 2.0L Cannula 01/04 1025 97.8 65 18 94/52 97 Nasal 2.0L Cannula Reconcile Medications Albuterol Sulfate (Ventolin Hfa) 90 MCG HFA.AER.AD 2 PUF INH Q4-6 PRN PRN SHORTNESS OF BREATH (Reported) Albuterol Sulfate 2.5 MG/3 ML (0.083 %) VIAL.NEB 1 Vial INH/KIMANI Q4P PRN SHORTNESS OF BREATH (Reported) Allopurinol 300 MG TABLET 1 HTAB PO DAILY GOUT (Reported) Amiodarone HCl 200 MG TABLET 1 TAB PO DAILY HEART (Reported) Apixaban (Eliquis) 5 MG TABLET 1 TAB PO BID BLOOD THINNER (Reported) Atorvastatin Calcium (Lipitor) 40 MG TABLET 1 TAB PO QPM CHOLESTEROL ( Reported) Digoxin 125 MCG TABLET 1 TAB PO DAILY HEART (Reported) Diltiazem HCl (Cartia Xt) 120 MG CAP.ER.24H 1 CAP PO DAILY HEART (Reported) Fluticasone/Salmeterol (Advair 250-50 Diskus) 250 MCG-50 MCG/DOSE BLST.W.DEV 1 PUF INH BID COPD (Reported) Lisinopril 10 MG TABLET 1 TAB PO DAILY HIGH BLOOD PRESSURE (Reported) Reason to Stop at ADM: CHAKA Oxycodone HCl/Acetaminophen (Percocet 5-325 MG Tablet) 5 MG-325 MG TABLET 1 TAB PO Q6HR PRN PAIN Pantoprazole Sodium (Protonix) 20 MG TABLET.DR 1 TAB PO DAILY ACID REFLUX ( Reported) Prednisone 10 MG TABLET 1 TAB PO BID COPD (Reported) Spironolactone (Aldactone) 25 MG TABLET 1 TAB PO DAILY CHF (Reported) Tiotropium [place] (Spiriva) 18 MCG CAP.W.DEV 1 PUFF INH DAILY COPD (Reported ) (SUBHA MENON,WILLIAM Tracy) Past History Travel History Traveled to [place] past 21 day No Medical History Any Pertinent Medical History? see below for history Neurological: NONE EENT: cataracts Cardiovascular: AFIB, CHF, hypertension, hyperlipidemia Respiratory: COPD (2L O2& steroid dependent), O2 DEP 2L Gastrointestinal: GERD, pancreatitis Hepatic: hepatic cysts Renal: chronic kidney disease Musculoskeletal: gout Psychiatric: NONE Endocrine: diabetes (insulin-requiring) Blood Disorders: NONE Cancer(s): NONE FELT CARBONIZER/Reproductive: NONE History of MRSA: No History of VRE: No History of CDIFF: No Tetanus Vaccine: 06/30/14 Surgical History Surgical History: appendectomy, cataract removal, knee replacement (right TKR) Psychosocial History Who do you live with Family Services at Home Oxygen What is your primary language Monegasque Tobacco Use: Quit >30 days ago Family History Family History, If Any: BROTHER, ; Cause: Brain cancer. Uncle (PA at age 40). FH: myocardial infarction SISTER FH: lung cancer FATHER Hx Contributory? No (JAD PEREZ) Review of Systems Review of Systems Constitutional: Reports: no symptoms. Comments Review of systems: See HPI, All other systems negative. Constitutional, no chills fever or weight loss HEENT: No visual changes no sore throat no congestion Cardiovascular: No chest pain Skin, no jaundice no rashes Respiratory: No dyspnea cough sputum or hemoptysis GI: No nausea no vomiting Muscle skeletal: no back pain, no neck pain, Neurologic: No numbness Heme/endocrine: No bruising no bleeding no polyuria or polydipsia Immunology: No splenectomy or history of AIDS (JAD PEREZ) Physical Exam Physical Exam General Appearance: well developed/nourished, no apparent distress, alert, awake , comfortable Comments: Well-developed well-nourished person in no acute distress HEENT: . ATRAUMATIC normocephalic. Nose is atraumatic. Neck: Normal inspection Cardiovascular: Capillary refills intact in lower extremities bilaterally. Respiratory: No respiratory distress. Extremity: Moderate edema appreciated over the prepatellar region on the right knee, near full range of motion of the right knee somewhat limited secondary to discomfort and tightness. Pedal pulses are 2+ bilaterally. Calves are nontender bilaterally. No erythema or ecchymosis appreciated. No warmth to palpation. Neuro: Alert oriented x3, motor sensory normAL Skin: No appreciable rash on exposed skin, skin is warm and dry. Psych: Mood and affect is normal, memory and judgment is normal. (JAD PEREZ) Progress Differential Diagnosis: contusion, dislocation, fracture, gout, septic arthritis , sprain, tendon injury Plan of Care: Orders Procedure Date/time Status LACTIC ACID 01/04 1155 Complete BLOOD CULTURE 01/04 1145 Active WESTERGREN SED RATE 01/04 1145 Complete COMPREHENSIVE METABOLIC PANEL 01/04 1145 Complete CBC WITHOUT DIFFERENTIAL 01/04 1145 Complete Laboratory Tests 01/04/17 1200: Lactic Acid 1.1 01/04/17 1200: Anion Gap 5, Estimated GFR 46 L, BUN/Creatinine Ratio 32.0 H, Glucose 97, Calcium 8.3 L, Total Bilirubin 0.6, AST 18, ALT 40, Alkaline Phosphatase 64, Total Protein 5.0 L, Albumin 3.1 L, Globulin 1.9, Albumin/Globulin Ratio 1.6, CBC w Diff NO MAN DIFF REQ, RBC 3.58 L, MCV 97.0 H, MCH 31.8 H, RDW 16.2 H, MPV 7.9, Gran % 73.0, Lymphocytes % 12.1 L, Monocytes % 11.6 H, Eosinophils % 2.9, Basophils % 0.4, Absolute Granulocytes 7.3 H, Absolute Lymphocytes 1.2, Absolute Monocytes 1.2 H, Absolute Eosinophils 0.3, Absolute Basophils 0, PUBS MCHC 32.8 L, ESR Westergren 41 H Microbiology 01/04 1200 BLOOD: Blood Culture - RECD 01/04 1157 BLOOD: Blood Culture - RECD Diagnostic Imaging: Viewed by Me: Radiology Read. Discussed w/RAD: Radiology Read. Radiology Impression: PATIENT: TESSA YANEZ JR PRESENT AGE: 71 PATIENT ACCOUNT NO: [id number] : 45 LOCATION: [facility] ORDERING PHYSICIAN: JAD DEL VALLE SERVICE DATE: 01/04/17 EXAM TYPE: RAD - XRY-KNEE COMPLETE RIGHT EXAMINATION: XR KNEE, RIGHT CLINICAL INFORMATION: Knee effusion. Edema and pain. COMPARISON: None TECHNIQUE: 5 views of the right knee. FINDINGS: Status post right total knee arthroplasty. Hardware is intact. Prosthesis is well seated. No evidence of periprosthetic abnormal lucency. Moderate to large joint effusion. IMPRESSION: No acute osseous abnormality. Moderate to large joint effusion. DICTATED BY: OSVALDO QUINTANILLA MD DATE/TIME DICTATED:01/04/171113 [employer]IC TEACHER:KIRSTY DATE/TIME TRANSCRIBED:01/04/171113 CONFIDENTIAL, DO NOT COPY WITHOUT APPROPRIATE AUTHORIZATION. <Electronically signed in Other Vendor System> SIGNED BY: OSVALDO QUINTANILLA MD 01/04/171118 Comments: Patient does have moderate to severe joint effusion on x-ray. Patient is afebrile. Patient's blood pressure dropped slightly prior to discharge, blood work including blood cultures were drawn. Patient is currently afebrile. Blood pressure is responding to IV hydration, patient still afebrile. No elevation in white blood cell count. Sedimentation rate is elevated although nonspecific. There is no erythema over his knee. I do not think this is a septic joint. Discussed with Dr. Lo. He is recommending close follow-up with orthopedics. Patient ready for discharge. He will return for any fevers. Educated on increasing fluids. (GENEVIEVE DEL VALLE,JAD) Departure Departure Time of Disposition: 1127 Disposition: HOME OR SELF CARE Condition: Stable Clinical Impression Primary Impression: Joint effusion Referrals: SANDRINE MENON,TAMARA CISNEROS MD,PEPPER LEBRON MD,DESHAWN (PCP/Family) Additional Instructions: Follow-up with orthopedics, YOU will likely need your knee tapped and is better served being done by a specialist given the fact that he have history of complications with your knee replacements in the past. Return for any fevers, redness worsening symptoms or concerns. Take Percocet as prescribed for pain. Elevate the knee as much as possible. Wear compression dressing. Departure Forms: Customer Survey General Discharge Information Prescriptions: Current Visit Scripts Oxycodone HCl/Acetaminophen (Percocet 5-325 MG Tablet) 1 TAB PO Q6HR PRN PAIN #10 TAB (JAD PEREZ) PA/ELEMENTARY SCHO[employer] READING TEACHER Co-Sign Statement Statement: ED Attending supervision documentation- [X] I saw and evaluated the patient. I have also reviewed all the pertinent lab results and diagnostic results. I agree with the findings and the plan of care as documented in the PA's/ELEMENT[employer] SCHO[employer] READING TEACHER's documentation. [] I have reviewed the ED Record and agree with the PA's/ELEMENTARY SCHOOL READING TEACHER's documentation. [] Additions or exceptions (if any) to the PAs/ELEMENTARY SCHOOL READING TEACHER's note and plan are summarized below: [] (SUBHA MENON,WILLIAM Tracy) (WILLIAM LO MD)
[2017-01-04] MEDS ORDERED: PREDNISONE10 M2 PO (11:08)
--- NOTE | 2017-01-04 11:19 | RADIOLOGY REPORT ---
EXAMINATION: XR KNEE, RIGHT CLINICAL INFORMATION: Knee effusion. Edema and pain. COMPARISON: None TECHNIQUE: 5 views of the right knee. FINDINGS: Status post right total knee arthroplasty. Hardware is intact. Prosthesis is well seated. No evidence of periprosthetic abnormal lucency. Moderate to large joint effusion. IMPRESSION: No acute osseous abnormality. Moderate to large joint effusion.
[2017-01-04] MEDS ORDERED: PERCOCET 5-3251 EACH PO (11:29)
[2017-01-04 12:07] LABS: ABSOLUTE BASOPHIL COUNT 0 /CUMM (0.0-0.2); ABSOLUTE EOSINOPHIL COUNT 0.3 /CUMM (0.0-0.7); ABSOLUTE GRANULOCYTE CT 7.3 /CUMM (1.4-6.5); ABSOLUTE LYMPH COUNT 1.2 /CUMM (1.2-3.4); ABSOLUTE MONOCYTE COUNT 1.2 /CUMM (0.10-0.60); BASOPHIL % 0.4 % (0.0-2.0); EOSINOPHIL % 2.9 % (0-5); HEMATOCRIT 34.7 % (42-52); MEAN CORPUSCULAR HGB 31.8 PG (27.0-31.0); MEAN CORPUSCULAR HGB CONC 32.8 G/DL (33.0-37.0); MEAN PLATELET VOLUME 7.9 FL (7.4-10.4); PLATELET COUNT 217 /CUMM (130-400); RBC DISTRIBUTION WIDTH 16.2 % (11.5-14.5); RED BLOOD CELL CT 3.58 /CUMM (4.70-6.10); WHITE BLOOD CELL COUNT 9.9 /CUMM (4.8-10.8)
[2017-01-04 14:24] VITALS: BP 115/65
[2017-01-05] MEDS ORDERED: METOPROLOL SUCC50 M2 PO (14:21)
== END 2017-01-04 14:54 ==
LOC: ERH 10:21
PROVIDERS: Physician Assistant
DX: M25.461 Effusion, right knee (principal)
CPT/HCPCS: 73562-RT; 87040; 96361; 96374; J7040

== ENCOUNTER 2017-01-05 11:45 | Inpatient (IN) | payer OTHER ==
[~2017-01-05] VITALS: Ht 188 cm; Wt 83.5 kg
[~2017-01-05 11:45] MED LIST changes: +PERCOCET 5-3251 EACH PO
--- NOTE | 2017-01-05 11:51 | ED UPPER/LOWER EXTREMITY COMPL ---
See Addendum History of Present Illness General Chief Complaint: Lower Extremity Problems Stated Complaint: HERE YEST W/ R KNEE SWELLING, NOW FEVER,VOMITING Source: patient, old records Exam Limitations: no limitations Vital Signs & Intake/Output Vital Signs & Intake/Output Vital Signs Date Time Temp Pulse Resp B/P B/P Pulse O2 O2 Flow FiO2 Mean Ox Delivery Rate 01/05 1422 100/50 01/05 1422 96/40 01/05 1412 98.9 72 95/49 97 Room Air 01/05 1321 98.5 77 18 96/55 94 Nasal 2.0L Cannula 01/05 1254 95 Nasal 2.0L Cannula 01/05 1148 100.4 99 18 93/55 96 Nasal 2.0L Cannula Allergies Coded Allergies: NO KNOWN ALLERGIES (08/21/15) Triage Note: 71 YO MALE TO TRIAGE C/O "FLUID ON L KNEE" STATES WAS SEEN HERE YESTERDAY FOR SAME, STATES WAS TOLD TO COME BACK IT HE DEVELOPED A FEVER. STATES TODAY HE WOKE UP WITH A FEVER AND HAS INCREASED PAIN TO LEG. TEMP IN TRIAGE 100.4 AT THIS TIME. 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 Triage Nurses Notes Reviewed? yes Onset: Gradual Duration: day(s): (3) Timing: remote history Severity: severe Severity Numbers: 9 Pain/Injury Location: Right: Knee. Method of Injury: unknown Modifying Factors: Improves With: immobilization. Worsens With: movement. HPI: Patient is a 71-year-old male presenting to the emergency department to complaint of right knee swelling has been getting worse over the past 3-4 days. Patient was seen and evaluated yesterday for similar symptoms, they performed an x-ray and blood work, he was sent home with directions to wear a compression dressing, elevate the leg as much possible and take Percocet as prescribed for pain. He returns today for any fevers as he was instructed to do so. He reports with a fever of 101 this morning. Positive nausea without vomiting. Has been taking Percocet with little relief in his pain. Denies any new trauma. No falls. No numbness or tingling. Denies any calf pain. No abdominal pain chest pain or shortness of breath or palpitations. (GENEVIEVE DEL VALLE,JAD) Reconcile Medications Albuterol Sulfate (Ventolin Hfa) 90 MCG HFA.AER.AD 2 PUF INH Q4-6 PRN PRN SHORTNESS OF BREATH (Reported) Albuterol Sulfate 2.5 MG/3 ML (0.083 %) VIAL.NEB 1 Vial INH/KIMANI Q4P PRN SHORTNESS OF BREATH (Reported) Allopurinol 300 MG TABLET 1 TAB PO DAILY GOUT (Reported) Amiodarone HCl 200 MG TABLET 1 TAB PO DAILY HEART (Reported) Apixaban (Eliquis) 5 MG TABLET 1 TAB PO BID BLOOD THINNER (Reported) Atorvastatin Calcium (Lipitor) 40 MG TABLET 1 TAB PO QPM CHOLESTEROL ( Reported) Digoxin 125 MCG TABLET 1 TAB PO DAILY HEART (Reported) Diltiazem HCl (Cartia Xt) 120 MG CAP.ER.24H 1 CAP PO DAILY HEART (Reported) Fluticasone/Salmeterol (Advair 250-50 Diskus) 250 MCG-50 MCG/DOSE BLST.W.DEV 1 PUF INH BID COPD (Reported) Lisinopril 10 MG TABLET 1 TAB PO DAILY HIGH BLOOD PRESSURE (Reported) Reason to Stop at ADM: CHAKA Metoprolol Succinate 50 MG TAB.ER.24H 1 TAB PO DAILY HEART (Reported) Pantoprazole Sodium (Protonix) 20 MG TABLET.DR 1 TAB PO DAILY ACID REFLUX ( Reported) Prednisone 10 MG TABLET 1 TAB PO BID PRN COPD (Reported) Spironolactone (Aldactone) 25 MG TABLET 1 TAB PO DAILY CHF (Reported) Tiotropium [place] (Spiriva) 18 MCG CAP.W.DEV 1 PUFF INH DAILY COPD (Reported ) (MAXINE MENON,VAL Arreguin) Past History Travel History Traveled to [place] past 21 day No Medical History Any Pertinent Medical History? 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 Uncle ([place] at age 40). FH: myocardial infarction SISTER FH: lung cancer FATHER Hx Contributory? No (JAD PEREZ) Review of Systems Review of Systems Constitutional: Reports: fever. Comments Review of systems: See HPI, All other systems negative. Constitutional, no chills fever or weight loss HEENT: No visual changes no sore throat no congestion Cardiovascular: No chest pain ,palpitation , orthopnea or ankle swelling Skin, no jaundice no rashes Respiratory: No dyspnea cough sputum or hemoptysis GI: no vomiting Muscle skeletal: no back pain, no neck pain, Neurologic: No numbness Heme/endocrine: No bruising no bleeding no polyuria or polydipsia Immunology: No splenectomy or history of AIDS (JAD PEREZ) Physical Exam Physical Exam General Appearance: well developed/nourished, no apparent distress, alert, comfortable Comments: Well-developed well-nourished person in no acute distress HEENT:Pupils equally round and reactive to light and accommodation. Nose is atraumatic. Neck: Normal inspection Back: Nontender Cardiovascular: Regular rate and rhythms no murmurs rubs or gallops, normal JVP Respiratory: Chest nontender. No respiratory distress.breath sounds clear to auscultation bilaterally Extremity: Moderate edema noted in the suprapatellar region on the right knee, no erythema, no warmth TO palpation. Somewhat limited range of motion of the right knee secondary to pain, pedal pulses are 2+ bilaterally. No calf tenderness to palpation bilaterally. Neuro: Alert oriented x3, motor sensory normal. Skin: No appreciable rash on exposed skin, skin is warm and dry. Psych: Mood and affect is normal, memory and judgment is normal. (JAD PEREZ) Progress Differential Diagnosis: DVT, gout, septic arthritis, sprain, tendon injury, HEMARTHROSIS, BURSITIS Plan of Care: Orders Procedure Date/time Status Regular Diet 01/05 D Active Saline Lock 01/05 1435 Active Misc Message 01/05 1435 Active ED Holding Orders 01/05 1435 Active Vital Signs 01/05 1435 Active Activity/Ambulation 01/05 1435 Active Code Status 01/05 1435 Active Patient Data 01/05 1355 Active Admit to inpatient 01/05 1327 Active EKG 01/05 1325 Active SYNOVIAL FLUID CELL COUNT 01/05 1230 Complete CULTURE,BODY FLUID 01/05 1149 Active BLOOD CULTURE 01/05 1149 Active WESTERGREN SED RATE 01/05 1149 Complete COMPREHENSIVE METABOLIC PANEL 01/05 1149 Complete CBC WITHOUT DIFFERENTIAL 01/05 1149 Complete Current Medications Sig/Luis Start time Last Medication Dose Stop Time Status Admin Sodium Chloride 1,000 ML BOLUS ONE 01/05 1345 AC 01/05 (Normal Saline 0.9%) 01/05 1544 1350 Laboratory Tests 01/05/17 1236: Lymphocytes 9, % Normal PMNs 81, Misc Hematology Test , Fluid WBC ND, Fld Total RBCs Counted ND, Sodium Urate Crystals FEW 01/05/17 1208: Anion Gap 7, Estimated GFR 46 L, BUN/Creatinine Ratio 23.3, Glucose 86, Calcium 8.3 L, Total Bilirubin 0.9, AST 19, ALT 37, Alkaline Phosphatase 62, Total Protein 5.1 L, Albumin 3.0 L, Globulin 2.1, Albumin/Globulin Ratio 1.4, CBC w Diff NO MAN DIFF REQ, RBC 3.38 L, MCV 96.6 H, MCH 31.5 H, RDW 15.6 H, MPV 8.2, Gran % 75.3 H, Lymphocytes % 9.6 L, Monocytes % 12.7 H, Eosinophils % 2.2, Basophils % 0.2, Absolute Granulocytes 8.5 H, Absolute Lymphocytes 1.1 L, Absolute Monocytes 1.4 H, Absolute Eosinophils 0.2, Absolute Basophils 0, PUBS MCHC 32.6 L, ESR Westergren 59 H Microbiology 01/05 1236 BODY FLUID: Body Fluid Culture - RES 01/05 1236 BODY FLUID: Gram Stain - RES 01/05 1226 BLOOD: Blood Culture - RECD 01/05 1208 BLOOD: Blood Culture - RECD Comments: Patient was seen and evaluated yesterday, returns today. Patient is febrile on arrival. Edema of the right knee seems to be in improved after compression dressing overnight. Concerned about septic bursitis. Patient will be started on IV antibiotics, repeat blood work was drawn. IV Tylenol initiated for pain as well as IV fluids as patient is slightly hypotensive. Patient will be admitted to Dr. Lopez for septic bursitis. Patient may need orthopedic consultation. (GENEVIEVE JAD DEL VALLE) Departure Departure Time of Disposition: 1257 Disposition: STILL A PATIENT Condition: Stable Clinical Impression Primary Impression: Septic prepatellar bursitis of right knee Secondary Impressions: Leukocytosis Qualifiers: Leukocytosis type: unspecified Qualified Code: D72.829 - Elevated white blood cell count, unspecified Referrals: DESHAWN LOPEZ MD (PCP/Family) Departure Forms: Customer Survey General Discharge Information Admission Note Spoke With: DESHAWN LOPEZ MD Documentation of Exam: Documentation of any treatments & extenuating circumstances including Concerns Regarding Discharge (functional status, medication knowledge or non-compliance, living conditions, etc.) that warrant an admission rather than observation: Patient requiring IV antibiotics, IV hydration, may require orthopedic consultation, may require infectious disease consultation, discharge at this time would be medically harmful. Trend white blood count cell count. 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 I have also reviewed all the pertinent lab results and diagnostic results. I agree with the findings and the plan of care as documented in the PA's/ROLLOFF TRUCK DRIVER's documentation. [X] I have reviewed the ED Record and agree with the PA's/ROLLOFF TRUCK DRIVER's documentation. [] Additions or exceptions (if any) to the PAs/ROLLOFF TRUCK DRIVER's note and plan are summarized below: [] (MAXINE MNEON,VAL Arreguin) Procedures Additional Procedures Additional Procedures: knee joint aspiration, right Progress: Area was prepped with Betadine, anesthetized with 1% lidocaine without epi using 25-gauge needle superficially, approximately 10 mL's, 10 more cc of lidocaine 1% without epi were used to anesthetize the right knee joint. Aspirated approximately 5-10 mL of cloudy sanguinous fluid. Betadine prep afterwards with sterile dressing and Coban wrap. (JAD PEREZ) Critical Care Note Critical Care Note Critical Care Time: 30-74 min (JAD PEREZ)
[2017-01-05 12:37] LABS: ABSOLUTE BASOPHIL COUNT 0 /CUMM (0.0-0.2); ABSOLUTE EOSINOPHIL COUNT 0.2 /CUMM (0.0-0.7); ABSOLUTE GRANULOCYTE CT 8.5 /CUMM (1.4-6.5); ABSOLUTE LYMPH COUNT 1.1 /CUMM (1.2-3.4); ABSOLUTE MONOCYTE COUNT 1.4 /CUMM (0.10-0.60); BASOPHIL % 0.2 % (0.0-2.0); EOSINOPHIL % 2.2 % (0-5); GRANULOCYTE % 75.3 % (42.2-75.2); HEMATOCRIT 32.6 % (42-52); MEAN CORPUSCULAR HGB 31.5 PG (27.0-31.0); MEAN CORPUSCULAR HGB CONC 32.6 G/DL (33.0-37.0); MEAN CORPUSCULAR VOLUME 96.6 FL (80.0-94.0); MEAN PLATELET VOLUME 8.2 FL (7.4-10.4); PLATELET COUNT 204 /CUMM (130-400); RBC DISTRIBUTION WIDTH 15.6 % (11.5-14.5); RED BLOOD CELL CT 3.38 /CUMM (4.70-6.10); WHITE BLOOD CELL COUNT 11.2 /CUMM (4.8-10.8)
--- NOTE | 2017-01-05 12:38 | NUR ---
LINE EST #20 TO [facility]. LABS DRAWN AND SENT (LAV X2,SST,EXTRA BLUE AND [place], FIRST SET OF CULTURES.) PT MEDICATED PER EMAR WITH NS BOLUS, IV TYLENOL, AND ZOFRAN. IVON VALLEJO AT BEDSIDE TO ASPIRATE JOINT FLUID FROM RIGHT KNEE.
--- NOTE | 2017-01-05 12:55 | NUR ---
PT MEDICATED WITH UNASYN PER EMAR. PT REPORTS RELIEF IN NAUSEA AND PAIN AT THIS TIME.
--- NOTE | 2017-01-05 14:10 | RADIOLOGY REPORT ---
EXAMINATION: XR PORTABLE CHEST CLINICAL INFORMATION: 71-year-old man with shortness of breath. COMPARISON: 12/18/2016 chest radiograph TECHNIQUE: Portable frontal view of the chest was obtained. FINDINGS: The lungs are generally well expanded, without evidence of focal airspace consolidation or overt pulmonary edema. Reticular opacities at the left lung base are likely atelectatic in origin. Heart size is within the range of normal. No large pleural effusions are visible. IMPRESSION: No radiographic evidence of an acute cardiopulmonary process.
[2017-01-05] MEDS ORDERED: METOPROLOL SUCC50 M2 PO (14:21)
--- NOTE | 2017-01-05 15:07 | NUR ---
ROOM 229 BED 2
--- NOTE | 2017-01-05 15:31 | History & Physical ---
General Information and HPI MD Statement: I have seen and personally examined TESSA YANEZ JR and documented this H& P. The patient is a 71 year old M who presented with a patient stated chief complaint of [right knee swelling]. Source of Information: patient, old records Exam Limitations: no limitations History of Present Illness: This is a 70 year old male with past medical hx of COPD (on home oxygen 2lit, steroid dependant), A.fib (on eliquis), CKD, CHF, HTN, Diabetes not on current management, gout and GERD, presenting to ER due to right knee swelling and pain that is associated with fever, chills and difficulty walking. He measured his fever at home 101. Patient was in the emergency department yesterday due to the same complaint and he was sent home with pain management. He report that the swelling started suddenly 2-3 days ago he denied any trauma. He stated the pain was very severe 10 out of 10, he report both total knee replacement that was done 18 years ago. He also reports feeling dizzy, lightheaded, nauseous and he vomited once in the ED. Patient deny any heart racing, shortness of breath, chest pain, cough, wheezing, abdominal pain, constipation, diarrhea, change in vision or hearing, headaches, back pain, hematuria, dysuria. In the emergency department patient had leukocytosis of 11.2, ESR 59. His fever was 100.4. Patient received 1 dose of IV Unasyn. Joint tap was done according to the ED staff it was bloody. The repeated right knee x-ray showed decreased size of swelling complaining with the previous x-ray that was done on 2016. Last admission was on November 2016 due to COPD exacerbation. Last echocardiogram was done on 2014 ejection fraction 35-40%. Allergies/Medications Allergies: Coded Allergies: NO KNOWN ALLERGIES (08/21/15) Home Med list Albuterol Sulfate (Ventolin Hfa) 90 MCG HFA.AER.AD 2 PUF INH Q4-6 PRN PRN SHORTNESS OF BREATH (Reported) Albuterol Sulfate 2.5 MG/3 ML (0.083 %) VIAL.NEB 1 Vial INH/KIMANI Q4P PRN SHORTNESS OF BREATH (Reported) Allopurinol 300 MG TABLET 1 TAB PO DAILY GOUT (Reported) Amiodarone HCl 200 MG TABLET 1 TAB PO DAILY HEART (Reported) Apixaban (Eliquis) 5 MG TABLET 1 TAB PO BID BLOOD THINNER (Reported) Atorvastatin Calcium (Lipitor) 40 MG TABLET 1 TAB PO QPM CHOLESTEROL ( Reported) Digoxin 125 MCG TABLET 1 TAB PO DAILY HEART (Reported) Diltiazem HCl (Cartia Xt) 120 MG CAP.ER.24H 1 CAP PO DAILY HEART (Reported) Fluticasone/Salmeterol (Advair 250-50 Diskus) 250 MCG-50 MCG/DOSE BLST.W.DEV 1 PUF INH BID COPD (Reported) Lisinopril 10 MG TABLET 1 TAB PO DAILY HIGH BLOOD PRESSURE (Reported) Reason to Stop at ADM: CHAKA Metoprolol Succinate 50 MG TAB.ER.24H 1 TAB PO DAILY HEART (Reported) Pantoprazole Sodium (Protonix) 20 MG TABLET.DR 1 TAB PO DAILY ACID REFLUX ( Reported) Prednisone 10 MG TABLET 1 TAB PO BID PRN COPD (Reported) Spironolactone (Aldactone) 25 MG TABLET 1 TAB PO DAILY CHF (Reported) Tiotropium [place] (Spiriva) 18 MCG CAP.W.DEV 1 PUFF INH DAILY COPD (Reported ) Past History Travel History Traveled to [place] past 21 day No Medical History Neurological: NONE EENT: cataracts Cardiovascular: AFIB, CHF, hypertension, hyperlipidemia Respiratory: COPD (2L O2& steroid dependent), O2 DEP 2L Gastrointestinal: GERD, pancreatitis Hepatic: hepatic cysts Renal: chronic kidney disease Musculoskeletal: gout Psychiatric: NONE Endocrine: diabetes (insulin-requiring) Blood Disorders: NONE 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 Uncle ([place] at age 40). FH: myocardial infarction SISTER FH: lung cancer FATHER Psychosocial History Who Do You Live With? spouse, 2 daughters, one son, granddaughter and her Services at Home: Oxygen Primary Language: Croatian Functional Ability ADLs Independent: dressing, eating, toileting, bathing. Ambulation: independent IADLs Independent: shopping, housework, finances, food prep, telephone, transportation , medication admin. Review of Systems Review of Systems Constitutional: Reports: see HPI. Cardiovascular: Reports: see HPI. Respiratory: Reports: see HPI. GI: Reports: see HPI. Genitourinary: Reports: see HPI. Exam & Diagnostic Data Last 24 Hrs of Vital Signs/I&O Vital Signs Date Time Temp Pulse Resp B/P B/P Pulse O2 O2 Flow FiO2 Mean Ox Delivery Rate 01/05 1700 98.6 80 20 100/60 95 Nasal 2.0L Cannula 01/05 1637 98.7 75 18 93/46 01/05 1637 98.7 75 18 93/46 01/05 1628 98.7 75 18 93/46 95 Nasal 2.0L Cannula 01/05 1547 99.1 77 18 98/50 96 Nasal 2.0L Cannula 01/05 1422 100/50 01/05 1422 96/40 01/05 1412 98.9 72 95/49 97 Room Air 01/05 1321 98.5 77 18 96/55 94 Nasal 2.0L Cannula 01/05 1254 95 Nasal 2.0L Cannula 01/05 1148 100.4 99 18 93/55 96 Nasal 2.0L Cannula Intake & Output 01/05 1600 01/05 0800 01/05 0000 Intake Total 2000 Output Total Balance 2000 Intake, IV 2000 Patient 185 lb Weight Weight Reported by Patient Measurement Method Physical Exam General Appearance Alert, Oriented X3, Cooperative HEENT PERRLA, EOMI Neck Supple Cardiovascular Normal S1, Normal S2, irregular irregular Lungs Clear to Auscultation, Normal Air Movement Abdomen Normal Bowel Sounds, Soft, No Tenderness Extremities right knee warm to touch, swollen comparing with the left. Dressing was on the right knee status post knee tap. Last 24 Hrs of Labs/[place]: Laboratory Tests 01/05/17 1236: Lymphocytes 9, % Normal PMNs 81, Misc Hematology Test , Fluid WBC ND, Fld Total RBCs Counted ND, Sodium Urate Crystals FEW 01/05/17 1208: Anion Gap 7, Estimated GFR 46 L, BUN/Creatinine Ratio 23.3, Glucose 86, Calcium 8.3 L, Total Bilirubin 0.9, AST 19, ALT 37, Alkaline Phosphatase 62, Total Protein 5.1 L, Albumin 3.0 L, Globulin 2.1, Albumin/Globulin Ratio 1.4, CBC w Diff NO MAN DIFF REQ, RBC 3.38 L, MCV 96.6 H, MCH 31.5 H, RDW 15.6 H, MPV 8.2, Gran % 75.3 H, Lymphocytes % 9.6 L, Monocytes % 12.7 H, Eosinophils % 2.2, Basophils % 0.2, Absolute Granulocytes 8.5 H, Absolute Lymphocytes 1.1 L, Absolute Monocytes 1.4 H, Absolute Eosinophils 0.2, Absolute Basophils 0, PUBS MCHC 32.6 L, ESR Westergren 59 H Microbiology 01/05 1236 BODY FLUID: Body Fluid Culture - RES 01/05 1236 BODY FLUID: Gram Stain - RES 01/05 1226 BLOOD: Blood Culture - RECD 01/05 1208 BLOOD: Blood Culture - RECD Diagnostic Data CXR Results EXAMINATION: XR PORTABLE CHEST CLINICAL INFORMATION: 71-year-old man with shortness of breath. COMPARISON: 12/18/2016 chest radiograph TECHNIQUE: Portable frontal view of the chest was obtained. FINDINGS: The lungs are generally well expanded, without evidence of focal airspace consolidation or overt pulmonary edema. Reticular opacities at the left lung base are likely atelectatic in origin. Heart size is within the range of normal. No large pleural effusions are visible. IMPRESSION: No radiographic evidence of an acute cardiopulmonary process. Other Results EXAMINATION: XR KNEE, RIGHT CLINICAL INFORMATION: Fever. Swelling of right knee, status post drainage. COMPARISON: 01/04/2017 TECHNIQUE: Four views of the right knee. FINDINGS: The total knee arthroplasty components remain in their expected positions. No evidence of aggressive osteolysis, fracture or periostitis. The suprapatellar bursa is distended, suggestive of a small joint effusion (decreased compared to 01/04/2017). There is a focus of heterotopic ossification of the distal quadriceps tendon. IMPRESSION: The right knee joint effusion has decreased compared to 01/04/2017. Assessment/Plan Assessment: He is a 70 year old male with past medical hx of COPD (on home oxygen 2lit, steroid dependant), A.fib (on eliquis), CKD, CHF, HTN, Diabetes not on current management, gout and GERD, presenting to ER due to right knee swelling and pain. Assessment: -Right knee swelling and pain: That could be most likely due to septic patellar bursitis giving the patient presentation and imaging study that could be due to hematoma giving the anticoagulation use, despite the patient denied any trauma. Orthopedic evaluation needed to rule out any serious underlying joint infection giving the patient history of total knee replacement and the fever, chills complain. Patient will need IV antibiotic and close monitoring for any severe infection/sepsis signs and symptoms. Plan: -Admit the patient to general medicine floor -Vitals every shift, Strict CRYSTAL's, daily weights -Continue the patient IV Unasyn -We'll follow the patient blood culture, obtain urinalysis -IV Zofran as needed for nausea and vomiting -Orthopedic consultation in a.m. -Infectious disease consultation a.m. -Start gentle hydration at 50 mL/h of half-normal saline. -2 L nasal cannula oxygen, TRC nebs as needed -Accu-Chek, insulin sliding scale -Repeat CBC and basic electrolyte in the morning for evaluation -Physical therapy consultation -Continue his home medication -Discussed and agree by Dr. Johnathan Shah MD -Pain pathway -DVT prophylaxis on Eliquis -DNI DNR As Ranked By This Provider Problem List: 1. Septic prepatellar bursitis of right knee Core Measures/Miscellaneous Acute Coronary Syndrome ACS Diagnosis: No Cerebrovascular Accident CVA/TIA Diagnosis: No Congestive Heart Failure CHF Diagnosis: No VTE (View Protocol) VTE Risk Factors: Acute medical illness, Age > 40, Immobility, paresis No Mech VTE prophylaxis d/t: No contraindications No VTE Pharm Prophylaxis d/t: No contraindications VTE Diagnosis: No VTE Type: NONE VTE Confirmed by (Test): NONE Sepsis (View Protocol) Severe Sepsis Present: No Septic Shock Septic Shock Present: No Miscellaneous Documentation Attending Case Discussed With: DESHAWN LEBRON MD Primary Care Physician: DESHAWN LEBRON MD Patient sees these Specialists GM Level of Patient Care: General Medicine Consults Needed: Consulting Specialty: Orthopedics
--- NOTE | 2017-01-05 15:46 | NUR ---
PT TO AND FROM CAT SCAN VIA STRETCHER. PT REPORTS NAUSEA, CHILLS AND DIZZINESS AT THIS TIME. HOUSE STAFF PAGED FOR ANTIEMETIC.
--- NOTE | 2017-01-05 15:49 | NUR ---
RN UNABLE TO TAKE REPORT AT THIS TIME, WILL CALL BACK.
--- NOTE | 2017-01-05 15:55 | NUR ---
229 BED 2
--- NOTE | 2017-01-05 16:10 | RADIOLOGY REPORT ---
EXAMINATION: XR KNEE, RIGHT CLINICAL INFORMATION: Fever. Swelling of right knee, status post drainage. COMPARISON: 01/04/2017 TECHNIQUE: Four views of the right knee. FINDINGS: The total knee arthroplasty components remain in their expected positions. No evidence of aggressive osteolysis, fracture or periostitis. The suprapatellar bursa is distended, suggestive of a small joint effusion (decreased compared to 01/04/2017). There is a focus of heterotopic ossification of the distal quadriceps tendon. IMPRESSION: The right knee joint effusion has decreased compared to 01/04/2017.
--- NOTE | 2017-01-05 16:13 | NUR ---
REPORT GIVEN TO PETER ALCANTAR. PHARMACY CALLED FOR PT MEDICATIONS, PER PHARMACY INHALERS WILL BE SENT TO THE FLOOR. TRANSPORT BOOKED AT THIS TIME.
--- NOTE | 2017-01-05 16:34 | NUR ---
HOUSE STAFF PAGED AT [phone] AND [phone] REGARDING HYPOTENSION AND CARDIAC MEDICATIONS. AWAITING CALL BACK.
--- NOTE | 2017-01-05 16:38 | NUR ---
PER HOUSE STAFF HOLD DILTIAZEM AT THIS TIME. IF SYSTOLIC DANIELLE IS ABOVE 100 ADMINISTER, PETER ALCANTAR UPDATED.
[2017-01-05 17:00] VITALS: BP 100/60
--- NOTE | 2017-01-05 17:33 | NUR ---
PT ARRIVED TO FLOOR AT 1658 VIA STRETCHER FROM ER. REPORT TAKEN FROM AUREA GREEN. WAS TOLD BY AUREA GREEN THAT PT'S LAST BP WAS 90/40 AND PT C/O NAUSEA, DIZZINESS BUT "HOUSESTAFF DIDN'T ORDER ANYTHING AND TRANSPORT IS HERE". PT ARRIVED TO FLOOR VOMITING INTO BUCKET, BP 100/60, PULSE 60-70, ON 2LNC (BASELINE FOR PT). PAGED MD NGO ABOUT ANTI-EMETIC MED WELL POSSIBLE FLUIDS SINCE PT HASN'T HAD ANYTHING PO ALL DAY. PT REPORTED FEELING BETTER AFTER VOMITING. NOTED THAT PT HAD JUST RECIEVED ORAL MEDS PO IN ER AND MOST LIKELY VOMITED THOSE UP, MD AWARE. FLUIDS ORDERED AT 50 ML/HR, ACCU CHECK 90. PT STABLE AT THIS TIME, NEEDS IN REACH.
[2017-01-05 22:07] VITALS: BP 90/30
--- NOTE | 2017-01-05 22:54 | NUR ---
CALLED TO ROOM TO MST, REPORTED PT'S BP WAS 90/30. THIS RN RE-CHECKED BP AND FOUND TO BE 90/40. CALLED DR. GUZMÁN TO NOTIFY OF MD CESAR UP TO FLOOR TO ASSESS PATIENT. PT ASYMPTOMATIC AT THIS TIME. ORDERED 500 ML BOLUS. WILL RECHECK WHEN COMPLETE. SAFETY MAINTAINED, NEEDS IN REACH.
[2017-01-06 00:05] VITALS: BP 104/50
--- NOTE | 2017-01-06 05:15 | NUR ---
0000 500 ML NS BOLUS COMPLETED.V/S 104/50 99.1-83-20 RA 94%.REPORTED TO SPECIAL EDUCATION AIDE.NO NEW ORDER RECEIVED.
[2017-01-06 06:29] VITALS: BP 100/50
--- NOTE | 2017-01-06 08:16 | PN- Housestaff ---
Subjective Follow-up For: Right knee effusion Septic bursitis Gout exacerbation Subjective: Patient was seen and examined this morning, reported excoriation eating pain and right knee on ambulation, no pain on rest. Patient denied any chills, had low- grade fever this morning to 99.8 Reported nausea and vomiting since admission, 3 times of vomiting, that contains Isaiah. Patient denied abdominal pain, diarrhea. Patient had a light breakfast this morning and was able to keep it down. Patient denied dysuria, penile discharge. Review of Systems Constitutional: Reports: see HPI. Objective Last 24 Hrs of Vital Signs/I&O Vital Signs Date Time Temp Pulse Resp B/P B/P Pulse O2 O2 Flow FiO2 Mean Ox Delivery Rate 01/06 09 76 100/44 01/06 0906 76 100/44 01/06 0629 99.8 80 20 100/50 95 Nasal 2.0L Cannula 01/06 0005 99.1 83 20 104/50 94 Nasal 2.0L Cannula 01/06 0000 94 Nasal 2.0L Cannula 01/05 2207 99.5 87 20 90/30 97 Nasal 2.0L Cannula 01/05 1700 92 Nasal 2.0L Cannula 01/05 1700 98.6 80 20 100/60 95 Nasal 2.0L Cannula 01/05 1637 98.7 75 18 93/46 10 1637 98.7 75 18 93/46 01/05 1628 98.7 75 18 93/46 95 Nasal 2.0L Cannula 01/05 1547 99.1 77 18 98/50 96 Nasal 2.0L Cannula 01/05 1422 100/50 01/05 1422 96/40 01/05 1412 98.9 72 95/49 97 Room Air 01/05 1321 98.5 77 18 96/55 94 Nasal 2.0L Cannula 01/05 1254 95 Nasal 2.0L Cannula Intake & Output 01/06 1600 01/06 0800 01/06 0000 Intake Total 1100 350 Output Total 1000 600 Balance 100 -250 Intake, IV 1050 250 Intake, Oral 50 100 Number 0 Bowel Movements Output, Urine 1000 600 Patient 86.183 kg 83.915 kg Weight Physical Exam General Appearance: Alert, Oriented X3, Cooperative, No Acute Distress Skin: No Rashes, No Breakdown, No Significant Lesion Skin Temp/Moisture Exam: Warm/Dry Neck: Supple, No JVD Cardiovascular: Normal S1, Normal S2, No Murmurs, irregular Lungs: Clear to Auscultation, Normal Air Movement Abdomen: Normal Bowel Sounds, Soft, No Tenderness, No Hepatospenomegaly, No Masses Neurological: Normal Gait, Normal Speech, Strength at 5/5 X4 Ext, Normal Tone, Sensation Intact, Cranial Nerves 3-12 NL, Reflexes 2+ Extremities: No Clubbing, No Cyanosis, Normal Pulses, No Tenderness/Swelling, Right knee warm, swallon, midly tender on lateral surface RLE trace pedal edema Assessment/Plan Assessment: He is a 70 year old male with past medical hx of COPD (on home oxygen 2lit, steroid dependant), A.fib (on eliquis), CKD, CHF, HTN, Diabetes not on current management, gout and GERD, presenting to ER due to right knee swelling and pain. Assessment: -Right knee swelling and pain: That could be most likely due to septic patellar bursitis giving the patient presentation and imaging study that could be due to hematoma giving the anticoagulation use, despite the patient denied any trauma. Orthopedic evaluation needed to rule out any serious underlying joint infection giving the patient history of total knee replacement and the fever, chills complain. Patient will need IV antibiotic and close monitoring for any severe infection/sepsis signs and symptoms. Plan: -Discontinue IV Unasyn and follow off antibiotic -Restart home dose prednisone 10 mg twice a day as scheduled dosed -Start colchicine 1200 mg now, 600 after 1 hour and scheduled dose of 600 mg daily -ID consultation was obtained, thanks recommendation -Orbital consultation was obtained, pending recommendation -Follow-up blood culture -Consider repeating knee Based on clinical evaluation -IV Zofran as needed for nausea and vomiting -Continue gentle hydration at 50 mL/h of half-normal saline as patient reported nausea and vomiting -2 L nasal cannula oxygen, TRC nebs as needed -Accu-Chek, insulin sliding scale -Physical therapy consultation -Continue his home medication -DVT prophylaxis on Eliquis -DNI DNR Problem List: 1. COPD 2. Atrial fibrillation 3. Septic prepatellar bursitis of right knee 4. Joint effusion Pain Ratin Pain Location: right knee Pain Goal: Pain 4 or less Pain Plan: Moderate to severe pain pathway Tomorrow's Labs & Rationales: CBC, CMP Consulting Request: Consulting Specialty: Orthopedics
[2017-01-06 08:41] LABS: ABSOLUTE BASOPHIL COUNT 0 /CUMM (0.0-0.2); ABSOLUTE EOSINOPHIL COUNT 0.3 /CUMM (0.0-0.7); ABSOLUTE GRANULOCYTE CT 7.4 /CUMM (1.4-6.5); ABSOLUTE LYMPH COUNT 0.7 /CUMM (1.2-3.4); ABSOLUTE MONOCYTE COUNT 1.2 /CUMM (0.10-0.60); BASOPHIL % 0.4 % (0.0-2.0); EOSINOPHIL % 2.9 % (0-5); GRANULOCYTE % 76.8 % (42.2-75.2); HEMATOCRIT 29.1 % (42-52); MEAN CORPUSCULAR HGB 31.8 PG (27.0-31.0); MEAN CORPUSCULAR VOLUME 96.4 FL (80.0-94.0); MEAN PLATELET VOLUME 8.4 FL (7.4-10.4); PLATELET COUNT 160 /CUMM (130-400); RBC DISTRIBUTION WIDTH 15.3 % (11.5-14.5); RED BLOOD CELL CT 3.02 /CUMM (4.70-6.10); WHITE BLOOD CELL COUNT 9.7 /CUMM (4.8-10.8)
--- NOTE | 2017-01-06 10:14 | Cons- Infect Disease ---
General Information and HPI Consulting Request Date of Consult: 01/06/17 Requested By: DESHAWN LEBRON MD Reason for Consult: Rule out septic right knee Source of Information: patient, old records History of Present Illness: This is a 71-year-old man with a history of diabetes, hypertension, atrial fibrillation, maintained on Eliquis, CHF, chronic renal failure, COPD, maintained on oxygen and 20 mg of prednisone daily, gout, status post bilateral knee replacements, hospitalized 2 weeks prior to admission with an exacerbation of COPD, seen in the emergency room one day prior to admission with a one day history of right knee swelling and pain, found to be afebrile with a white blood cell count of 10,000 and with an x-ray of the knee revealing a well seated prosthesis with a moderate to large joint effusion, discharged on Percocet, admitted on January 05 after returning to the emergency room because of a fever to 101, nausea with vomiting and increased pain in the right knee. On admission he was febrile to 100.4. Laboratory data revealed a white blood cell count of 11, 000, ESR 59, BUN/creatinine 35 and 1.5, uric acid 6.5, with normal liver enzymes. Urinalysis negative. Chest x-ray was negative. X-ray of the right knee revealed a decreased joint effusion compared to the previous study. He underwent aspiration of right knee fluid, with 5-10 mL of "cloudy, sanguinous fluid" obtained, and he was begun on Unasyn. He has been afebrile overnight. This morning he continues to complain of right knee discomfort and swelling. Allergies/Medications Allergies: Coded Allergies: NO KNOWN ALLERGIES (08/21/15) Home Med List: Albuterol Sulfate (Ventolin Hfa) 90 MCG HFA.AER.AD 2 PUF INH Q4-6 PRN PRN SHORTNESS OF BREATH (Reported) Albuterol Sulfate 2.5 MG/3 ML (0.083 %) VIAL.NEB 1 Vial INH/KIMANI Q4P PRN SHORTNESS OF BREATH (Reported) Allopurinol 300 MG TABLET 1 TAB PO DAILY GOUT (Reported) Amiodarone HCl 200 MG TABLET 1 TAB PO DAILY HEART (Reported) Apixaban (Eliquis) 5 MG TABLET 1 TAB PO BID BLOOD THINNER (Reported) Atorvastatin Calcium (Lipitor) 40 MG TABLET 1 TAB PO QPM CHOLESTEROL ( Reported) Digoxin 125 MCG TABLET 1 TAB PO DAILY HEART (Reported) Diltiazem HCl (Cartia Xt) 120 MG CAP.ER.24H 1 CAP PO DAILY HEART (Reported) Fluticasone/Salmeterol (Advair 250-50 Diskus) 250 MCG-50 MCG/DOSE BLST.W.DEV 1 PUF INH BID COPD (Reported) Lisinopril 10 MG TABLET 1 TAB PO DAILY HIGH BLOOD PRESSURE (Reported) Reason to Stop at ADM: CHAKA Metoprolol Succinate 50 MG TAB.ER.24H 1 TAB PO DAILY HEART (Reported) Pantoprazole Sodium (Protonix) 20 MG TABLET.DR 1 TAB PO DAILY ACID REFLUX ( Reported) Prednisone 10 MG TABLET 1 TAB PO BID PRN COPD (Reported) Spironolactone (Aldactone) 25 MG TABLET 1 TAB PO DAILY CHF (Reported) Tiotropium [place] (Spiriva) 18 MCG CAP.W.DEV 1 PUFF INH DAILY COPD (Reported ) Past History Travel History Traveled to [place] past 21 day No Medical History Neurological: NONE EENT: cataracts Cardiovascular: AFIB, CHF, hypertension, hyperlipidemia Respiratory: COPD (2L O2& steroid dependent), O2 DEP 2L Gastrointestinal: GERD, pancreatitis Hepatic: hepatic cysts Renal: chronic kidney disease Musculoskeletal: gout Psychiatric: NONE Endocrine: diabetes (insulin-requiring) Blood Disorders: NONE Cancer(s): NONE AUDIT LEAD/Reproductive: NONE History of MRSA: No History of VRE: No History of CDIFF: No Isolation History: Standard Tetanus Vaccine: 06/30/14 Surgical History Surgical History: appendectomy, cataract removal, knee replacement (bilateral) Family History Relations & Conditions If Any: BROTHER, ; Cause: Brain cancer. Uncle ([place] at age 40). FH: myocardial infarction SISTER FH: lung cancer FATHER Psychosocial History Where Do You Live? Home Who Do You Live With? spouse, 2 daughters, one son, granddaughter and her Services at Home: Oxygen Primary Language: [place] Smoking Status: Former Smoker Functional Ability ADLs Independent: dressing, eating, toileting, bathing. Ambulation: independent IADLs Independent: shopping, housework, finances, food prep, telephone, transportation , medication admin. Review of Systems Review of Systems All Other Systems: Reviewed and Negative Exam & Diagnostic Data Last 24 Hrs of Vital Signs/I&O Vital Signs Date Time Temp Pulse Resp B/P B/P Pulse O2 O2 Flow FiO2 Mean Ox Delivery Rate 01/06 0906 76 100/44 01/06 0906 76 100/44 01/06 0629 99.8 80 20 100/50 95 Nasal 2.0L Cannula 01/06 0005 99.1 83 20 104/50 94 Nasal 2.0L Cannula 01/06 0000 94 Nasal 2.0L Cannula 01/05 2207 99.5 87 20 90/30 97 Nasal 2.0L Cannula 01/05 1700 92 Nasal 2.0L Cannula 01/05 1700 98.6 80 20 100/60 95 Nasal 2.0L Cannula 01/05 1637 98.7 75 18 93/46 01/05 1637 98.7 75 18 93/46 01/05 1628 98.7 75 18 93/46 95 Nasal 2.0L Cannula 01/05 1547 99.1 77 18 98/50 96 Nasal 2.0L Cannula 01/05 1422 100/50 01/05 1422 96/40 01/05 1412 98.9 72 95/49 97 Room Air 01/05 1321 98.5 77 18 96/55 94 Nasal 2.0L Cannula 01/05 1254 95 Nasal 2.0L Cannula 01/05 1148 100.4 99 18 93/55 96 Nasal 2.0L Cannula Intake & Output 01/06 1600 01/06 0800 01/06 0000 Intake Total 1100 350 Output Total 1000 600 Balance 100 -250 Intake, IV 1050 250 Intake, Oral 50 100 Number 0 Bowel Movements Output, Urine 1000 600 Patient 190 lb 185 lb Weight Physical Exam Other Physical Findings: He is awake and alert in no acute distress. MAXIMUM TEMPERATURE 100.4. Skin reveals no rash. HEENT exam poor dentition. Neck is supple with no adenopathy. Lungs decreased breath sounds bilaterally. Heart regular rhythm with no murmur. Abdomen is soft, nontender with positive bowel sounds. Back no CVA tenderness. Extremities right knee swelling, mildly tender to palpation, with decreased range of motion; 1+ edema of the right lower extremity. Neuro is without focality. Last 24 Hours of Lab Results: Laboratory Tests 01/06 01/05 0630 1929 Chemistry Sodium (137 - 145 mmol/L) 135 L Potassium (3.5 - 5.1 mmol/L) 5.3 H Chloride (98 - 107 mmol/L) 105 Carbon Dioxide (22 - 30 mmol/L) 24 Anion Gap (5 - 16) 6 BUN (9 - 20 mg/dL) 25 H Creatinine (0.7 - 1.2 mg/dL) 1.2 Estimated GFR (>60 ml/min) 60 BUN/Creatinine Ratio (7 - 25 %) 20.8 Hematology CBC w Diff NO MAN DIFF REQ WBC (4.8 - 10.8 /CUMM) 9.7 RBC (4.70 - 6.10 /CUMM) 3.02 L Hgb (14.0 - 18.0 G/DL) 9.6 L Hct (42 - 52 %) 29.1 L MCV (80.0 - 94.0 FL) 96.4 H MCH (27.0 - 31.0 PG) 31.8 H RDW (11.5 - 14.5 %) 15.3 H Plt Count (130 - 400 /CUMM) 160 MPV (7.4 - 10.4 FL) 8.4 Gran % (42.2 - 75.2 %) 76.8 H Lymphocytes % (20.5 - 51.1 %) 7.6 L Monocytes % (1.7 - 9.3 %) 12.3 H Eosinophils % (0 - 5 %) 2.9 Basophils % (0.0 - 2.0 %) 0.4 Absolute Granulocytes (1.4 - 6.5 /CUMM) 7.4 H Absolute Lymphocytes (1.2 - 3.4 /CUMM) 0.7 L Absolute Monocytes (0.10 - 0.60 /CUMM) 1.2 H Absolute Eosinophils (0.0 - 0.7 /CUMM) 0.3 Absolute Basophils (0.0 - 0.2 /CUMM) 0 PUBS MCHC (33.0 - 37.0 G/DL) 33.0 Urines Urine Color (YEL,AMB,STR) YEL Urine Clarity (CLEAR) CLEAR Urine pH (5.0 - 8.0) 6.0 Ur Specific [place] (1.001 - 1.035) 1.015 Urine Protein (NEG,<30 MG/DL) NEG Urine Ketones (NEG) NEG Urine Nitrite (NEG) NEG Urine Bilirubin (NEG) NEG Urine Urobilinogen (0.1 - 1.0 EU/dl) 0.2 Ur Leukocyte Esterase (NEG) NEG Ur Microscopic EXAM NOT REQUIRED Urine Hemoglobin (NEG) NEG Urine Glucose (N MG/DL) NEG 01/05 01/05 1236 1208 Chemistry Sodium (137 - 145 mmol/L) 134 L Potassium (3.5 - 5.1 mmol/L) 5.1 Chloride (98 - 107 mmol/L) 103 Carbon Dioxide (22 - 30 mmol/L) 25 Anion Gap (5 - 16) 7 BUN (9 - 20 mg/dL) 35 H Creatinine (0.7 - 1.2 mg/dL) 1.5 H Estimated GFR (>60 ml/min) 46 L BUN/Creatinine Ratio (7 - 25 %) 23.3 Glucose (65 - 99 mg/dL) 86 Uric Acid (3.5 - 8.5 mg/dL) 6.5 Calcium (8.4 - 10.2 mg/dL) 8.3 L Total Bilirubin (0.2 - 1.3 mg/dL) 0.9 AST (17 - 59 U/L) 19 ALT (21 - 72 U/L) 37 Alkaline Phosphatase (< 127 U/L) 62 Total Protein (6.3 - 8.2 g/dL) 5.1 L Albumin (3.5 - 5.0 g/dL) 3.0 L Globulin (1.9 - 4.2 gm/dL) 2.1 Albumin/Globulin Ratio (1.1 - 2.2 %) 1.4 Hematology CBC w Diff NO MAN DIFF REQ WBC (4.8 - 10.8 /CUMM) 11.2 H RBC (4.70 - 6.10 /CUMM) 3.38 L Hgb (14.0 - 18.0 G/DL) 10.6 L Hct (42 - 52 %) 32.6 L MCV (80.0 - 94.0 FL) 96.6 H MCH (27.0 - 31.0 PG) 31.5 H RDW (11.5 - 14.5 %) 15.6 H Plt Count (130 - 400 /CUMM) 204 MPV (7.4 - 10.4 FL) 8.2 Gran % (42.2 - 75.2 %) 75.3 H Lymphocytes % (20.5 - 51.1 %) 9.6 L Monocytes % (1.7 - 9.3 %) 12.7 H Eosinophils % (0 - 5 %) 2.2 Basophils % (0.0 - 2.0 %) 0.2 Absolute Granulocytes (1.4 - 6.5 /CUMM) 8.5 H Absolute Lymphocytes (1.2 - 3.4 /CUMM) 1.1 L Lymphocytes (%) 9 Absolute Monocytes (0.10 - 0.60 /CUMM) 1.4 H Absolute Eosinophils (0.0 - 0.7 /CUMM) 0.2 Absolute Basophils (0.0 - 0.2 /CUMM) 0 % Normal PMNs (%) 81 PUBS MCHC (33.0 - 37.0 G/DL) 32.6 L ESR Westergren (0 - 10 MM) 59 H Misc Hematology Test (%) Other Body Source Fluid WBC (0 - 5 /CUMM) ND Fld Total RBCs Counted (0 /CUMM) ND Urines Sodium Urate Crystals (NONE) FEW Last 24 Hours of [place] Results: Blood cultures 2 January 04 negative Blood cultures January 05 negative Right knee fluid January 05 negative, with gram stain revealing moderate white blood cells and no organisms Diagnostic Data Recent Imaging Findings: Chest x-ray January 05 no acute process X-ray of the right knee January 05 reveals a right knee joint effusion Assessment/Plan Assessment/Plan Impression: This is a 71-year-old man with a history of diabetes, atrial fibrillation, maintained on Eliquis, COPD, maintained on steroids, gout, status post bilateral knee replacements, admitted on January 05 with a 2 day history of right knee swelling and pain, found to have a low-grade fever with a mild leukocytosis, with aspiration of the right knee yielding bloody fluid, which clotted, precluding a cell count, but with the culture of this fluid and blood cultures so far negative. This could represent an infected prosthesis, though the culture is negative so far and, unfortunately, no cell count was obtained as the specimen clotted; however I suspect that this more likely represents a flareup of his gout despite the Allopurinol prophylaxis and treatment with prednisone for his COPD. He has been evaluated by Orthopedics who raised the possibility of a bleed into the joint secondary to his Eliquis and will consider the need for a repeat arthrocentesis based on his cultures and clinical picture. As he is stable I feel he can be followed off antibiotics pending further evaluation. Note he is on chronic steroids which were not ordered on admission. Suggestion: 1. Would restart steroids and consider either increasing the dose or beginning Colchicine 2. Follow-up recent cultures 3. Further evaluation, with possible repeat knee tap, based on clinical picture and cultures 4 Discontinue Unasyn and follow off antibiotics Consult Acknowledgment - Thank you for your consult request.
--- NOTE | 2017-01-06 11:10 | PN- Att Addend ---
Attending Addendum Attending Brief Note Covering attending admitting note 71 no gentleman admitted to the hospital with chief complaint of pain and swelling in the right knee and inability to walk. Patient had total knee replacement done 15 years ago in [facility]. No history of recent dental work or no history of recent trauma or fall on the knee no history of any instrumentation like cystoscopy a colonoscopy recently. He had a fever of 101 nausea and vomiting and Reiger's. He was seen in the ER a day prior to this admission with the pain similar symptoms of pain and swelling in the right knee he was afebrile. The white count of 10,000 and also moderate to large effusion. Discharged home with pain medication and return back with a fever of 101. In the ER his knee was aspirated and it was 5 10 mL of cloudy serosanguineous discharge and was started on IV Unasyn Past medical history COPD CHF Hypertension dyslipidemia and atrial fibrillation History of CKG Diabetes Intake & Output 01/06 1600 01/06 0800 01/06 0000 Intake Total 1100 350 Output Total 1000 600 Balance 100 -250 Intake, IV 1050 250 Intake, Oral 50 100 Number 0 Bowel Movements Output, Urine 1000 600 Patient 190 lb 185 lb Weight Current Medications Sig/Luis Start time Last Medication Dose Route Stop Time Status Admin Acetaminophen 650 MG Q6P PRN 01/05 1515 AC PO Acetaminophen 0 .STK-MED ONE 01/05 1224 DC IV Acetaminophen 1,000 MG ONCE ONE 01/05 1215 DC 01/05 N/A 1 UNIT IV 01/05 1229 1237 Acetaminophen/ 1 TAB Q6P PRN 01/05 1515 AC 01/06 Hydrocodone Bitart PO 0608 Allopurinol 300 MG DAILY 01/06 1000 AC 01/06 PO 0901 Amiodarone HCl 200 MG DAILY 01/05 1523 AC 01/05 PO 1637 Ampicillin Sodium/ 3,000 MG Q6 01/05 1800 AC 01/06 Sulbactam Sodium IV 0601 Sodium Chloride 100 ML Ampicillin Sodium/ 0 .STK-MED ONE 01/05 1248 DC Sulbactam Sodium .ROUTE Ampicillin Sodium/ 3,000 MG ONCE ONE 01/05 1200 DC 01/05 Sulbactam Sodium IV 01/05 1229 1253 Sodium Chloride 100 ML Apixaban 5 MG BID 01/05 2200 AC 01/06 PO 0901 Atorvastatin Calcium 40 MG QPM 01/05 2200 AC 01/05 PO 2133 Budesonide/ 2 PUF BID 01/05 1527 AC 01/06 Formoterol Fumarate INH 0905 Digoxin 0.125 MG 1700 01/05 1700 AC 01/05 PO 1637 Diltiazem HCl 120 MG DAILY 01/05 1524 AC PO Insulin Aspart 0 TIDAC 01/06 0800 AC SC Lidocaine 0 .STK-MED ONE 01/05 1224 DC .ROUTE Lidocaine 20 ML ONCE ONE 01/05 1200 DC 01/05 ID 01/05 1201 1237 Lisinopril 10 MG DAILY 01/06 1000 AC 01/06 PO 0906 Morphine Sulfate 2 MG Q4P PRN 01/05 1515 AC 01/06 IV 0857 Omeprazole 20 MG DAILY AC 01/05 1528 AC 01/06 PO 0602 Ondansetron HCl 4 MG ONCE ONE 01/05 1700 DC 01/06 IV 01/05 1701 0629 Ondansetron HCl 0 .STK-MED ONE 01/05 1604 DC .ROUTE Ondansetron HCl 4 MG ONCE ONE 01/05 1600 DC 01/05 IV 01/05 1601 1606 Ondansetron HCl 4 MG ONCE ONE 01/05 1300 DC 01/05 IV 01/05 1301 1311 Ondansetron HCl 0 .STK-MED ONE 01/05 1221 DC .ROUTE Sodium Chloride 500 ML BOLUS ONE 01/05 2215 DC 01/05 IV 01/05 2314 2231 Sodium Chloride 1,000 ML Q20H 01/05 1715 AC 01/05 IV 01/06 1314 1719 Sodium Chloride 1,000 ML Q13H 01/05 1700 DC IV 01/06 0559 Sodium Chloride 1,000 ML BOLUS ONE 01/05 1345 DC 01/05 IV 01/05 1544 1350 Sodium Chloride 1,000 ML BOLUS ONE 01/05 1200 DC 01/05 IV 01/05 1259 1237 Spironolactone 25 MG DAILY 01/05 1528 AC 01/06 PO 0901 Tiotropium [place] 1 PUF DAILY 01/05 1528 AC 01/06 INH 0902 Laboratory Tests 01/06 01/05 0630 1929 Chemistry Sodium (137 - 145 mmol/L) 135 L Potassium (3.5 - 5.1 mmol/L) 5.3 H Chloride (98 - 107 mmol/L) 105 Carbon Dioxide (22 - 30 mmol/L) 24 Anion Gap (5 - 16) 6 BUN (9 - 20 mg/dL) 25 H Creatinine (0.7 - 1.2 mg/dL) 1.2 Estimated GFR (>60 ml/min) 60 BUN/Creatinine Ratio (7 - 25 %) 20.8 Hematology CBC w Diff NO MAN DIFF REQ WBC (4.8 - 10.8 /CUMM) 9.7 RBC (4.70 - 6.10 /CUMM) 3.02 L Hgb (14.0 - 18.0 G/DL) 9.6 L Hct (42 - 52 %) 29.1 L MCV (80.0 - 94.0 FL) 96.4 H MCH (27.0 - 31.0 PG) 31.8 H RDW (11.5 - 14.5 %) 15.3 H Plt Count (130 - 400 /CUMM) 160 MPV (7.4 - 10.4 FL) 8.4 Gran % (42.2 - 75.2 %) 76.8 H Lymphocytes % (20.5 - 51.1 %) 7.6 L Monocytes % (1.7 - 9.3 %) 12.3 H Eosinophils % (0 - 5 %) 2.9 Basophils % (0.0 - 2.0 %) 0.4 Absolute Granulocytes (1.4 - 6.5 /CUMM) 7.4 H Absolute Lymphocytes (1.2 - 3.4 /CUMM) 0.7 L Absolute Monocytes (0.10 - 0.60 /CUMM) 1.2 H Absolute Eosinophils (0.0 - 0.7 /CUMM) 0.3 Absolute Basophils (0.0 - 0.2 /CUMM) 0 PUBS MCHC (33.0 - 37.0 G/DL) 33.0 Urines Urine Color (YEL,AMB,STR) YEL Urine Clarity (CLEAR) CLEAR Urine pH (5.0 - 8.0) 6.0 Ur Specific [place] (1.001 - 1.035) 1.015 Urine Protein (NEG,<30 MG/DL) NEG Urine Ketones (NEG) NEG Urine Nitrite (NEG) NEG Urine Bilirubin (NEG) NEG Urine Urobilinogen (0.1 - 1.0 EU/dl) 0.2 Ur Leukocyte Esterase (NEG) NEG Ur Microscopic EXAM NOT REQUIRED Urine Hemoglobin (NEG) NEG Urine Glucose (N MG/DL) NEG 01/05 01/05 1236 1208 Chemistry Sodium (137 - 145 mmol/L) 134 L Potassium (3.5 - 5.1 mmol/L) 5.1 Chloride (98 - 107 mmol/L) 103 Carbon Dioxide (22 - 30 mmol/L) 25 Anion Gap (5 - 16) 7 BUN (9 - 20 mg/dL) 35 H Creatinine (0.7 - 1.2 mg/dL) 1.5 H Estimated GFR (>60 ml/min) 46 L BUN/Creatinine Ratio (7 - 25 %) 23.3 Glucose (65 - 99 mg/dL) 86 Uric Acid (3.5 - 8.5 mg/dL) 6.5 Calcium (8.4 - 10.2 mg/dL) 8.3 L Total Bilirubin (0.2 - 1.3 mg/dL) 0.9 AST (17 - 59 U/L) 19 ALT (21 - 72 U/L) 37 Alkaline Phosphatase (< 127 U/L) 62 Total Protein (6.3 - 8.2 g/dL) 5.1 L Albumin (3.5 - 5.0 g/dL) 3.0 L Globulin (1.9 - 4.2 gm/dL) 2.1 Albumin/Globulin Ratio (1.1 - 2.2 %) 1.4 Hematology CBC w Diff NO MAN DIFF REQ WBC (4.8 - 10.8 /CUMM) 11.2 H RBC (4.70 - 6.10 /CUMM) 3.38 L Hgb (14.0 - 18.0 G/DL) 10.6 L Hct (42 - 52 %) 32.6 L MCV (80.0 - 94.0 FL) 96.6 H MCH (27.0 - 31.0 PG) 31.5 H RDW (11.5 - 14.5 %) 15.6 H Plt Count (130 - 400 /CUMM) 204 MPV (7.4 - 10.4 FL) 8.2 Gran % (42.2 - 75.2 %) 75.3 H Lymphocytes % (20.5 - 51.1 %) 9.6 L Monocytes % (1.7 - 9.3 %) 12.7 H Eosinophils % (0 - 5 %) 2.2 Basophils % (0.0 - 2.0 %) 0.2 Absolute Granulocytes (1.4 - 6.5 /CUMM) 8.5 H Absolute Lymphocytes (1.2 - 3.4 /CUMM) 1.1 L Lymphocytes (%) 9 Absolute Monocytes (0.10 - 0.60 /CUMM) 1.4 H Absolute Eosinophils (0.0 - 0.7 /CUMM) 0.2 Absolute Basophils (0.0 - 0.2 /CUMM) 0 % Normal PMNs (%) 81 PUBS MCHC (33.0 - 37.0 G/DL) 32.6 L ESR Westergren (0 - 10 MM) 59 H Misc Hematology Test (%) Other Body Source Fluid WBC (0 - 5 /CUMM) ND Fld Total RBCs Counted (0 /CUMM) ND Urines Sodium Urate Crystals (NONE) FEW Microbiology Date/Time Procedure - Status Source Growth 01/05 1236 Body Fluid Culture - RES BODY FLUID 01/05 1236 Gram Stain - RES BODY FLUID 01/05 1226 Blood Culture - RECD BLOOD 01/05 1208 Blood Culture - RECD BLOOD Vital Signs Date Time Temp Pulse Resp B/P B/P Pulse O2 O2 Flow FiO2 Mean Ox Delivery Rate 01/06 0906 76 100/44 01/06 0906 76 100/44 01/06 0629 99.8 80 20 100/50 95 Nasal 2.0L Cannula 01/06 0005 99.1 83 20 104/50 94 Nasal 2.0L Cannula 01/06 0000 94 Nasal 2.0L Cannula 01/05 2207 99.5 87 20 90/30 97 Nasal 2.0L Cannula 01/05 1700 92 Nasal 2.0L Cannula 01/05 1700 98.6 80 20 100/60 95 Nasal 2.0L Cannula 01/05 1637 98.7 75 18 93/46 01/05 1637 98.7 75 18 93/46 01/05 1628 98.7 75 18 93/46 95 Nasal 2.0L Cannula 01/05 1547 99.1 77 18 98/50 96 Nasal 2.0L Cannula 01/05 1422 100/50 01/05 1422 96/40 01/05 1412 98.9 72 95/49 97 Room Air 01/05 1321 98.5 77 18 96/55 94 Nasal 2.0L Cannula 01/05 1254 95 Nasal 2.0L Cannula 01/05 1148 100.4 99 18 93/55 96 Nasal 2.0L Cannula Intake & Output 01/06 1600 01/06 0800 01/06 0000 Intake Total 1100 350 Output Total 1000 600 Balance 100 -250 Intake, IV 1050 250 Intake, Oral 50 100 Number 0 Bowel Movements Output, Urine 1000 600 Patient 190 lb 185 lb Weight On examination Patient awake alert oriented 3. MAXIMUM TEMPERATURE 100.4 Conjunctivae is pink sclerae is anicteric mucous membrane is moist neck is supple JVD is not raised. S1-S2 is normal Lungs shows expiratory wheezing with scattered rhonchi Abdomen is soft nontender bowel sounds are present Right knee is got effusion with some thickening of the sonogram membrane with slightly warm to touch and tender on palpation Movements of the knee is limited in flexion 2 crit 40-45 No skin breaks in the knee. Assessment Effusion of the right knee to rule out sepsis cultures were obtained from the fluid the sonogram fluid awaiting the final report. Questionable of flareup of gout Questionable of serosanguineous blood respirations on Eliquis Per infectious disease went to discontinue the IV antibiotics follow off the antibiotics increased dose of colchicine Colcrys and possible repeat tap also get an orthopedic consult.
--- NOTE | 2017-01-06 11:11 | Admission Certification ---
Admission Certification Certification Statement - As attending physician, I certify that at the time of - admission, based on clinical presentation, severity of - symptoms, need for further diagnostic testing and - therapeutic interventions, and risk of adverse outcomes - without in-hospital treatment, in my clinical assessment, - this patient requires an acute hospital stay for a minimum - of two nights or longer. I have also considered psychsocial - factors such as support system, advanced age, financial - issues, cognitive issues, and failed out-patient treatments, - past re-admission history, safety of patient, and lack of - compliance as applicable. 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
--- NOTE | 2017-01-06 13:33 | Cons- Orthopedic ---
General Information and HPI Consulting Request Date of Consult: 01/06/17 Requested By: Dr. Shah Reason for Consult: Assessment possible septic prepatellar bursitis Source of Information: patient, old records Exam Limitations: no limitations History of Present Illness: This patient is a 71-year-old man who has a history of acute onset right knee pain this past . He was seen in the emergency room at that time and was given pain medications and was told to return if he develops any fevers or increased pain. Patient returned with a fever and increased pain. The emergency room aspirated his right knee and patient was admitted to medicine for evaluation and treatment. there was approximately 5-10 cc of bloody fluid aspirated from the right knee according to records. Patient was started on Unasyn and was admitted to the medical service. Patient does have a history significant for a right total knee arthroplasty which was subsequently revised.. This was many years ago and patient does not recall the surgeon was. He has had a previous episode of swelling and pain in the knee. He does have a history of gout and apparently has been found to have crystals and synovial fluid previously. Patient describes increased pain with weightbearing. He denies any pain at rest.. He does have many medical problems including chronic anticoagulation due to atrial fibrillation, chronic home O2 use for COPD and chronic prednisone use. Allergies/Medications Allergies: Coded Allergies: NO KNOWN ALLERGIES (08/21/15) Home Med List: Albuterol Sulfate (Ventolin Hfa) 90 MCG HFA.AER.AD 2 PUF INH Q4-6 PRN PRN SHORTNESS OF BREATH (Reported) Albuterol Sulfate 2.5 MG/3 ML (0.083 %) VIAL.NEB 1 Vial INH/KIMANI Q4P PRN SHORTNESS OF BREATH (Reported) Allopurinol 300 MG TABLET 1 TAB PO DAILY GOUT (Reported) Amiodarone HCl 200 MG TABLET 1 TAB PO DAILY HEART (Reported) Apixaban (Eliquis) 5 MG TABLET 1 TAB PO BID BLOOD THINNER (Reported) Atorvastatin Calcium (Lipitor) 40 MG TABLET 1 TAB PO QPM CHOLESTEROL ( Reported) Digoxin 125 MCG TABLET 1 TAB PO DAILY HEART (Reported) Diltiazem HCl (Cartia Xt) 120 MG CAP.ER.24H 1 CAP PO DAILY HEART (Reported) Fluticasone/Salmeterol (Advair 250-50 Diskus) 250 MCG-50 MCG/DOSE BLST.W.DEV 1 PUF INH BID COPD (Reported) Lisinopril 10 MG TABLET 1 TAB PO DAILY HIGH BLOOD PRESSURE (Reported) Reason to Stop at ADM: CHAKA Metoprolol Succinate 50 MG TAB.ER.24H 1 TAB PO DAILY HEART (Reported) Pantoprazole Sodium (Protonix) 20 MG TABLET.DR 1 TAB PO DAILY ACID REFLUX ( Reported) Prednisone 10 MG TABLET 1 TAB PO BID PRN COPD (Reported) Spironolactone (Aldactone) 25 MG TABLET 1 TAB PO DAILY CHF (Reported) Tiotropium [place] (Spiriva) 18 MCG CAP.W.DEV 1 PUFF INH DAILY COPD (Reported ) Past History Medical History Neurological: NONE EENT: cataracts Cardiovascular: AFIB, CHF, hypertension, hyperlipidemia Respiratory: COPD (2L O2& steroid dependent), O2 DEP 2L Gastrointestinal: GERD, pancreatitis Hepatic: hepatic cysts Renal: chronic kidney disease Musculoskeletal: gout Psychiatric: NONE Endocrine: diabetes (insulin-requiring) Blood Disorders: NONE Cancer(s): NONE 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 Uncle (PA at age 40). FH: myocardial infarction SISTER FH: lung cancer FATHER Psychosocial History Where Do You Live? Home Who Do You Live With? spouse, 2 daughters, one son, granddaughter and her Services at Home: Oxygen Primary Language: Chilean Smoking Status: Former Smoker Functional Ability ADLs Independent: dressing, eating, toileting, bathing. Ambulation: independent IADLs Independent: shopping, housework, finances, food prep, telephone, transportation , medication admin. Exam & Diagnostic Data Vital Signs and I&O Vital Signs Date Time Temp Pulse Resp B/P B/P Pulse O2 O2 Flow FiO2 Mean Ox Delivery Rate 01/06 1155 Nasal 2.0L Cannula 01/06 0906 76 100/44 01/06 0906 76 100/44 01/06 0629 99.8 80 20 100/50 95 Nasal 2.0L Cannula 01/06 0005 99.1 83 20 104/50 94 Nasal 2.0L Cannula 01/06 0000 94 Nasal 2.0L Cannula 01/05 2207 99.5 87 20 90/30 97 Nasal 2.0L Cannula 01/05 1700 92 Nasal 2.0L Cannula 01/05 1700 98.6 80 20 100/60 95 Nasal 2.0L Cannula 01/05 1637 98.7 75 18 93/46 01/05 1637 98.7 75 18 93/46 01/05 1628 98.7 75 18 93/46 95 Nasal 2.0L Cannula 01/05 1547 99.1 77 18 98/50 96 Nasal 2.0L Cannula 01/05 1422 100/50 01/05 1422 96/40 01/05 1412 98.9 72 95/49 97 Room Air Intake & Output 01/06 1600 01/06 0800 01/06 0000 01/05 1600 01/05 0800 01/05 0000 Intake Total 0997 968 2393 Output Total 1000 600 Balance 100 -250 2000 Intake, IV 1870 825 9564 Intake, Oral 50 100 Number 0 Bowel Movements Output, Urine 1000 600 Patient 190 lb 185 lb 185 lb Weight Weight Reported by Patient Measurement Method Physical Exam: The patient was found to be alert and appropriate. he does have a nasal cannula for oxygen in place. No difficulty with breathing during the evaluation. He had just been evaluated by Dr. العلي. Examination of the right knee reveals some evidence of mild resolving ecchymosis. He does have a moderate size knee effusion. There is no evidence of prepatellar bursal fluid accumulation. I cannot see the definite sites of the aspiration but patient reported that they were medial and lateral. Slight laxity to varus and valgus stress with the knee at 30 of flexion. He lacks about 10 of flexion actively but this can be obtained passively. Flexion to about 85 with some apprehension. Calf is soft and nontender.mild distal edema. No definite erythema involving knee or lower extremity, right side Imaging Results: I did review the plain x-rays of his right knee. It revealed a revision arthroplasty. No sign of complication. There is some soft tissue calcification in the extensor mechanism. Other Results: I also reviewed some labs. White count of approximately 11. The knee aspirate from yesterday showed no growth yet. It was a bloody specimen Assessment/Plan Assessment/Plan Right knee effusion/possible hemarthrosis secondary to the anticoagulation. there is no sign for a prepatellar bursitis. There is certainly a possibility of a gout flare considering the appearance of crystals within the aspirate as well. Obviously, the more major concern would be if there was an underlying infection. At this point, I would await the final culture results of the knee aspirate. Patient may need to have repeat aspiration depending on clinical progress. In the meantime, I agree with Dr. العلي in discontinuing the antibiotic and monitoring clinical progress. If a repeat aspiration is necessary, it would be a more accurate specimen off of antibiotics. If it is a hemarthrosis that is resolving, then would expect symptoms to gradually improve. Patient is already on anti-inflammatory in regards to his prednisone and therefore another anti-inflammatory and would be relatively contraindicated but can consider colchicine if there is a high suspicion of a gout flare. Will follow clinical progress Consult Acknowledgment - Thank you for your consult request. Attending MD Review Statement Attending Statement Attending Statement: examined this patient, reviewed images (discussed with Dr Stubbs), discussed with Dr Hernandez as well
[2017-01-06 14:22] VITALS: BP 100/60
[2017-01-06 22:24] VITALS: BP 110/46
--- NOTE | 2017-01-06 22:48 | NUR ---
SHIFT NOTE: PT ALERT AND ORIENTED X3. ON 2LNC, WHICH IS BASELINE FOR PT. HX OF COPD. PTS R KNEE HAS EDEMA AND ECCHYMOSIS, ELEVATED. PT DENIED ANY PAIN THROUGHOUT SHIFT, AWARE THAT IF NEEDED, PAIN MEDICATIONS ARE AVAILABLE. PT ALSO STATES NAUSEA HAS RESOLVED AND HE IS FEELING MUCH BETTER THAN PREVIOUS NIGHT. PT ABLE TO KEEP DOWN FOOD AND DRINK. SKIN INTACT. VITAL SIGNS STABLE. SAFETY PRECAUTIONS MAINTAINED.
[2017-01-07 06:46] VITALS: BP 124/76
--- NOTE | 2017-01-07 07:09 | PN- Housestaff ---
Subjective Follow-up For: Gout attack Right knee effusion Subjective: Patient was seen and examined this morning, reported improvement of right knee pain, able to move around. Vital signs are stable, afebrile. No overnight events reported by the nurse of the patient. Patient denied any nausea or vomiting today, tolerate his diet well. Review of Systems Constitutional: Reports: see HPI. Objective Last 24 Hrs of Vital Signs/I&O Vital Signs Date Time Temp Pulse Resp B/P B/P Pulse O2 O2 Flow FiO2 Mean Ox Delivery Rate 01/07 1431 99.0 70 20 110/80 94 Nasal 2.0L Cannula 01/07 0946 114/52 01/07 0946 114/52 01/07 0839 97 Nasal 2.0L Cannula 01/07 0800 Nasal 2.0L Cannula 01/07 0646 97.8 80 16 124/76 95 Nasal Cannula 01/07 0000 95 Nasal 2.0L Cannula 01/06 2224 97.8 71 20 110/46 95 01/06 1609 72 108/60 01/06 1603 96 Nasal 2.0L Cannula 01/06 1600 Nasal 2.0L Cannula Intake & Output 01/07 1600 01/07 0800 01/07 0000 Intake Total 800 50 800 Output Total 400 1075 250 Balance 400 -1025 550 Intake, IV 0 Intake, Oral 800 50 800 Number 0 Bowel Movements Output, Urine 400 1075 250 Patient 86.778 kg Weight Physical Exam General Appearance: Alert, Oriented X3, Cooperative, No Acute Distress Skin: No Rashes, No Breakdown, No Significant Lesion HEENT: Atraumatic, PERRLA, EOMI, Mucous Membr. moist/pink Neck: Supple, No JVD Cardiovascular: Normal S1, Normal S2, No Murmurs, irregular Lungs: Clear to Auscultation, Normal Air Movement Abdomen: Normal Bowel Sounds, Soft, No Tenderness, No Hepatospenomegaly, No Masses Neurological: Normal Gait, Normal Speech, Strength at 5/5 X4 Ext, Normal Tone, Sensation Intact, Cranial Nerves 3-12 NL, Reflexes 2+ Extremities: No Clubbing, No Cyanosis, Normal Pulses, No Tenderness/Swelling, Right LE trace pedal edema Assessment/Plan Assessment: He is a 70 year old male with past medical hx of COPD (on home oxygen 2lit, steroid dependant), A.fib (on eliquis), CKD, CHF, HTN, Diabetes not on current management, gout and GERD, presenting to ER due to right knee swelling and pain. Assessment: -Right knee swelling and pain: That could be most likely due to septic patellar bursitis giving the patient presentation and imaging study that could be due to hematoma giving the anticoagulation use, despite the patient denied any trauma. Orthopedic evaluation needed to rule out any serious underlying joint infection giving the patient history of total knee replacement and the fever, chills complain. Patient will need IV antibiotic and close monitoring for any severe infection/sepsis signs and symptoms. Plan: -Continue off antibiotic -Continue prednisone 10 mg twice a -Colchicine total of 1800 mg was given yesterday -Continue colchicine 600 mg daily -ID consultation was obtained, thanks recommendation -Orthoconsultation was obtained, thanks recommendation -Blood culture and body fluid culture negative -Synovial fluid positive for urate crystals -Consider repeating knee Based on clinical evaluation -IV Zofran as needed for nausea and vomiting -Patient denied any nausea or vomiting today, good oral intake, will DC IV fluid -2 L nasal cannula oxygen, TRC nebs as needed -Accu-Chek, insulin sliding scale -Physical therapy consultation, recommendation for home self care -Continue his home medication -DVT prophylaxis on Eliquis -DNI DNR Problem List: 1. Gout Pain Ratin Pain Location: Right knee Pain Goal: Pain 4 or less Pain Plan: Moderate pain pathway Tomorrow's Labs & Rationales: None Consulting Request: Consulting Specialty: Orthopedics
[2017-01-07 08:50] LABS: ABSOLUTE BASOPHIL COUNT 0 /CUMM (0.0-0.2); ABSOLUTE EOSINOPHIL COUNT 0 /CUMM (0.0-0.7); ABSOLUTE GRANULOCYTE CT 7.4 /CUMM (1.4-6.5); ABSOLUTE LYMPH COUNT 0.2 /CUMM (1.2-3.4); ABSOLUTE MONOCYTE COUNT 0.3 /CUMM (0.10-0.60); BASOPHIL % 0 % (0.0-2.0); EOSINOPHIL % 0 % (0-5); GRANULOCYTE % 93.1 % (42.2-75.2); HEMATOCRIT 28.9 % (42-52); MEAN CORPUSCULAR HGB 31.5 PG (27.0-31.0); MEAN CORPUSCULAR HGB CONC 32.7 G/DL (33.0-37.0); MEAN CORPUSCULAR VOLUME 96.2 FL (80.0-94.0); MEAN PLATELET VOLUME 8.4 FL (7.4-10.4); PLATELET COUNT 161 /CUMM (130-400); WHITE BLOOD CELL COUNT 7.9 /CUMM (4.8-10.8)
[2017-01-07 14:31] VITALS: BP 110/80
--- NOTE | 2017-01-07 14:44 | PN- Infect Dx ---
Subjective Subjective: Afebrile on steroids. He feels improved with decreased discomfort and increased mobility in the right knee Objective Last 24 Hrs of Vital Signs/I&O Vital Signs Date Time Temp Pulse Resp B/P B/P Pulse O2 O2 Flow FiO2 Mean Ox Delivery Rate 01/07 1431 99.0 70 20 110/80 94 Nasal 2.0L Cannula 01/07 0946 114/52 01/07 0946 114/52 01/07 0839 97 Nasal 2.0L Cannula 01/07 0800 Nasal 2.0L Cannula 01/07 0646 97.8 80 16 124/76 95 Nasal Cannula 01/07 0000 95 Nasal 2.0L Cannula 01/06 2224 97.8 71 20 110/46 95 01/06 1609 72 108/60 01/06 1603 96 Nasal 2.0L Cannula 01/06 1600 Nasal 2.0L Cannula Intake & Output 01/07 1600 01/07 0800 01/07 0000 Intake Total 800 50 800 Output Total 400 1075 250 Balance 400 -1025 550 Intake, IV 0 Intake, Oral 800 50 800 Number 0 Bowel Movements Output, Urine 400 1075 250 Patient 191 lb Weight Physical Exam Other Physical Findings: He appears comfortable in no acute distress Extremities decreased swelling of the right knee with increased range of motion, minimally tender to palpation, with no erythema Results Last 24 Hours of Lab Results: Laboratory Tests 01/07 0657 Chemistry Sodium (137 - 145 mmol/L) 134 L Potassium (3.5 - 5.1 mmol/L) 5.0 Chloride (98 - 107 mmol/L) 101 Carbon Dioxide (22 - 30 mmol/L) 27 Anion Gap (5 - 16) 6 BUN (9 - 20 mg/dL) 18 Creatinine (0.7 - 1.2 mg/dL) 1.0 Estimated GFR (>60 ml/min) > 60 BUN/Creatinine Ratio (7 - 25 %) 18.0 Hematology CBC w Diff MAN DIFF ORDERED WBC (4.8 - 10.8 /CUMM) 7.9 RBC (4.70 - 6.10 /CUMM) 3.00 L Hgb (14.0 - 18.0 G/DL) 9.4 L Hct (42 - 52 %) 28.9 L MCV (80.0 - 94.0 FL) 96.2 H MCH (27.0 - 31.0 PG) 31.5 H RDW (11.5 - 14.5 %) 15.0 H Plt Count (130 - 400 /CUMM) 161 MPV (7.4 - 10.4 FL) 8.4 Gran % (42.2 - 75.2 %) 93.1 H Lymphocytes % (20.5 - 51.1 %) 3.1 L Monocytes % (1.7 - 9.3 %) 3.8 Eosinophils % (0 - 5 %) 0 Basophils % (0.0 - 2.0 %) 0 L Absolute Granulocytes (1.4 - 6.5 /CUMM) 7.4 H Absolute Lymphocytes (1.2 - 3.4 /CUMM) 0.2 L Absolute Monocytes (0.10 - 0.60 /CUMM) 0.3 Absolute Eosinophils (0.0 - 0.7 /CUMM) 0 Absolute Basophils (0.0 - 0.2 /CUMM) 0 Platelet Estimate (ADEQUATE) VERIFIED BY SMEAR Poikilocytosis 1+ Anisocytosis 1+ Ovalocytes 1+ PUBS MCHC (33.0 - 37.0 G/DL) 32.7 L Last 24 Hours of [place] Results: Blood cultures January 04 negative Blood cultures January 05 negative Right knee fluid January 05 negative Assessment/Plan Impression: Right knee inflammation, most likely secondary to an acute flareup of gout, with urate crystals noted in the knee fluid obtained by aspiration in the ER, though he is maintained on both Allopurinol and Prednisone at home. He appears to have responded to Colchicine, which can be continued until his inflammation resolves. The cultures of his knee fluid and blood remain negative and he is otherwise stable with temperatures and white blood cell count normal (on steroids) and off antibiotics. Suggestion: 1. Rheumatology follow-up as an outpatient 2. Continue to follow off antibiotics
--- NOTE | 2017-01-07 16:40 | NUR ---
PT EXPERIENCING INTENSE NAUSEA. PRN MEDICATION REGLAN ADMINISTERED.
[2017-01-07 23:01] VITALS: BP 104/60
[2017-01-08 06:16] VITALS: BP 122/68
--- NOTE | 2017-01-08 07:15 | PN- Housestaff ---
Subjective Follow-up For: Gout attack Right knee effusion Subjective: Patient was seen and examined this morning, reported significant improvement in his pain, able to walk around with pain 5/10. Reported some nausea, tolerating oral intake well. Afebrile, vital signs are stable. No overnight events reported by the nurse of the patient. Review of Systems Constitutional: Reports: see HPI. Objective Last 24 Hrs of Vital Signs/I&O Vital Signs Date Time Temp Pulse Resp B/P B/P Pulse O2 O2 Flow FiO2 Mean Ox Delivery Rate 01/08 09 68 102/50 01/08 0926 68 102/50 01/08 0838 95 Nasal 2.0L Cannula 01/08 0616 98.2 66 18 122/68 95 Nasal Cannula 01/07 2301 98.5 70 20 104/60 96 Nasal Cannula 01/07 1756 76 01/07 1708 93 Nasal 2.0L Cannula 01/07 1600 Nasal 2.0L Cannula 01/07 1431 99.0 70 20 110/80 94 Nasal 2.0L Cannula Intake & Output 01/08 1600 01/08 0800 01/08 0000 Intake Total 70 Output Total 300 Balance -230 Intake, IV 20 Intake, Oral 50 Output, Urine 300 Patient 83.461 kg Weight Weight Standing Scale Measurement Method Physical Exam General Appearance: Alert, Oriented X3, Cooperative, No Acute Distress Skin: No Rashes, No Breakdown, No Significant Lesion Skin Temp/Moisture Exam: Warm/Dry HEENT: Atraumatic, PERRLA, EOMI, Mucous Membr. moist/pink Neck: Supple, No JVD Cardiovascular: Normal S1, Normal S2, No Murmurs, irregular Lungs: Clear to Auscultation, Normal Air Movement Abdomen: Normal Bowel Sounds, Soft, No Tenderness, No Hepatospenomegaly, No Masses Neurological: Normal Gait, Normal Speech, Strength at 5/5 X4 Ext, Normal Tone, Sensation Intact, Cranial Nerves 3-12 NL, Reflexes 2+ Extremities: No Clubbing, No Cyanosis, No Edema, Normal Pulses, No Tenderness/ Swelling Assessment/Plan Assessment: He is a 70 year old male with past medical hx of COPD (on home oxygen 2lit, steroid dependant), A.fib (on eliquis), CKD, CHF, HTN, Diabetes not on current management, gout and GERD, presenting to ER due to right knee swelling and pain. Assessment: -Right knee swelling and pain: That could be most likely due to septic patellar bursitis giving the patient presentation and imaging study that could be due to hematoma giving the anticoagulation use, despite the patient denied any trauma. Orthopedic evaluation needed to rule out any serious underlying joint infection giving the patient history of total knee replacement and the fever, chills complain. Patient will need IV antibiotic and close monitoring for any severe infection/sepsis signs and symptoms. Plan: -Continue off antibiotic -Continue prednisone 10 mg twice a -Colchicine total of 1800 mg was given initially -Continue colchicine 600 mg daily -ID consultation was obtained, thanks recommendation -Orthoconsultation was obtained, thanks recommendation, no indication for intervention -Blood culture and body fluid culture negative -Synovial fluid positive for urate crystals -Consider repeating knee tap based on clinical evaluation -IV Zofran as needed for nausea and vomiting -Patient denied any nausea or vomiting today, good oral intake, will DC IV fluid -2 L nasal cannula oxygen, TRC nebs as needed -Accu-Chek, insulin sliding scale -Physical therapy consultation, recommendation for home self care -Continue his home medication -DVT prophylaxis on Eliquis -DNI DNR Problem List: 1. Gout Pain Ratin Pain Location: Right knee Pain Goal: Pain 4 or less Pain Plan: Moderate pain pathway Tomorrow's Labs & Rationales: None Consulting Request: Consulting Specialty: Orthopedics
--- NOTE | 2017-01-08 12:20 | PN- Orthopedic ---
Subjective Subjective: pain is improved Objective Vital Signs and I&Os Vital Signs Date Time Temp Pulse Resp B/P B/P Pulse O2 O2 Flow FiO2 Mean Ox Delivery Rate 01/08 1138 72 120/60 01/08 1137 72 120/60 01/08 0926 68 102/50 01/08 0926 68 102/50 01/08 0838 95 Nasal 2.0L Cannula 01/08 0800 Nasal 2.0L Cannula 01/08 0616 98.2 66 18 122/68 95 Nasal Cannula 01/07 2301 98.5 70 20 104/60 96 Nasal Cannula 01/07 1756 76 01/07 1708 93 Nasal 2.0L Cannula 01/07 1600 Nasal 2.0L Cannula 01/07 1431 99.0 70 20 110/80 94 Nasal 2.0L Cannula Intake & Output 01/08 1600 01/08 0800 01/08 0000 01/07 1600 01/07 0800 01/07 0000 Intake Total 70 800 50 800 Output Total 536 232 3762 250 Balance -230 400 -1025 550 Intake, IV 20 0 Intake, Oral 50 800 50 800 Number 0 Bowel Movements Output, Urine 854 840 0806 250 Patient 184 lb 191 lb Weight Weight Standing Scale Measurement Method Physical Exam: off antibiotics on gout meds effusion unchanged no erythema calf soft nontender Assessment/Plan Assessment/Plan right knee effusion probable hemarthrosis cultures remain negative continue monitoring off antibiotics clinically improving
--- NOTE | 2017-01-08 13:38 | Patient Discharge Instructions ---
Discharge Instructions General Discharge Information You were seen/treated for: Gout Special Instructions: -Please follow up with your primary care physician within 1 week after discharge -Please follow up with geophysical manager Dr. Izaguirre within 1 week after discharge Acute Coronary Syndrome Inclusion Criteria At DC or during hospital stay patient has or had the following: ACS DIAGNOSIS No Discharge Core Measures Meds if any: Prescribed or Continued at Discharge Meds if any: NOT Prescribed or Continued at Discharge Congestive Heart Failure Inclusion Criteria At DC or during hospital stay patient has or had the following: CHF DIAGNOSIS No Discharge Core Measures Meds if any: Prescribed or Continued at Discharge Meds if any: NOT Prescribed or Continued at Discharge Cerebrovascular accident Inclusion Criteria At DC or during hospital stay patient has or had the following: CVA/TIA Diagnosis No Discharge Core Measures Meds if any: Prescribed or Continued at Discharge Meds if any: NOT Prescribed or Continued at Discharge Venous thromboembolism Inclusion Criteria VTE Diagnosis No VTE Type NONE VTE Confirmed by (Test) NONE Discharge Core Measures - Per Current guidelines, there needs to be overlap - treatment for the first 5 days of Warfarin therapy. - If discharged on Warfarin prior to 5 days of - overlap therapy, the patient will need to be - assessed for post discharge needs including - *Post discharge parental anticoagulation - *Warfarin and/or parental anticoagulation education - *Follow up date to check INR post discharge At least 5 days overlap therapy as Inpatient Yes Meds if any: Prescribed or Continued at Discharge Note: Overlap Therapy is Warfarin and Anticoagulant Meds if any: NOT Prescribed or Continued at Discharge
[2017-01-08] MEDS ORDERED: COLCHICINE0.6 M2 PO (13:43)
[2017-01-08 14:37] VITALS: BP 104/58
--- NOTE | 2017-01-08 18:53 | PN- Att Addend ---
Attending Addendum Attending Brief Note Current Medications Sig/Luis Start time Last Medication Dose Route Stop Time Status Admin Acetaminophen 650 MG Q6P PRN 01/05 1515 DCD PO Acetaminophen/ 1 TAB Q6P PRN 01/05 1515 DCD 01/08 Hydrocodone Bitart PO 0245 Albuterol Sulfate 3 ML EVERY 4 HRS/AWAKE 01/06 1200 DCD 01/08 INH 1331 Allopurinol 300 MG DAILY 01/06 1000 DCD 01/08 PO 0925 Amiodarone HCl 200 MG DAILY 01/05 1523 DCD 01/08 PO 1137 Apixaban 5 MG BID 01/05 2200 DCD 01/08 PO 0926 Atorvastatin Calcium 40 MG QPM 01/05 2200 DCD 01/07 PO 2053 Budesonide/ 2 PUF BID 01/05 1527 DCD 01/08 Formoterol Fumarate INH 0925 Colchicine 600 MCG DAILY 01/07 1000 DCD 01/08 PO 0926 Digoxin 0.125 MG 1700 01/05 1700 DCD 01/07 PO 1756 Diltiazem HCl 120 MG DAILY 01/05 1524 DCD 01/08 PO 1137 Insulin Aspart 0 TIDAC 01/06 0800 DCD 01/07 SC 1152 Lisinopril 10 MG DAILY 01/06 1000 DCD 01/08 PO 1138 Metoclopramide HCl 10 MG Q6P PRN 01/06 1330 DCD 01/08 IV 0706 Morphine Sulfate 2 MG Q4P PRN 01/05 1515 DCD 01/06 IV 0857 Omeprazole 20 MG DAILY AC 01/05 1528 DCD 01/08 PO 0705 Prednisone 10 MG BID 01/06 1145 DCD 01/08 PO 0926 Spironolactone 25 MG DAILY 01/05 1528 DCD 01/08 PO 0925 Tiotropium [place] 1 PUF DAILY 01/05 1528 DCD 01/08 INH 0925 Vital Signs Date Time Temp Pulse Resp B/P B/P Pulse O2 O2 Flow FiO2 Mean Ox Delivery Rate 01/08 1437 97.9 69 20 104/58 94 01/08 1138 72 120/60 01/08 1137 72 120/60 Intake & Output 01/08 1600 Intake Total 750 Output Total 350 Balance 400 Intake, Oral 750 Output, Urine 350 Patient feeling better and the knee swelling is down able to move it. Patient was followed by infectious diseases his cultures are all negative patient has been off antibiotics he has no fever. The fluid the joint showed urate crystals responding to the colchicine. Patient was cleared for discharge to follow with orthopedic rheumatology and myself
--- NOTE | 2017-01-08 19:02 | Discharge Summary ---
Visit Information Visit Dates Admission Date: 01/05/17 Discharge Date: 01/08/17 Hospital Course Course Attending Physician: DESHAWN LOPEZ MD Primary Care Physician: DESHAWN LOPEZ MD Consulting Request: Consulting Specialty: Orthopedics (infectious diseases) Consulting Physician: sheri Boone and Jennifer Reason for Consult: swollen knee Hospital Course: 21-year-old male many comorbidities on chronic steroids and allopurinol. Comes in couple of times to the ER with right knee pain and swelling last time the pain was so severe and is finding that he had to come back to the emergency room , he had an aspirate of the knee showed some cloudy serosanguineous fluid, this was sent for cultures. His white count was slightly elevated. Patient had a low-grade fever on admission was given 1 dose of Unasyn in the ER the next day he was better infectious diseases thought that maybe the examination was related to a flareup of his gout. Was kept off antibiotics after. His knee continues to improve and responded to the colchicine again the aspirate showed urate crystals patient was stable for discharge on the follow with Dr. Lopez , rheumatology and orthopedics Complications: None Allergies: Coded Allergies: NO KNOWN ALLERGIES (08/21/15) Significant Procedures: Had an aspirate of the knee in the emergency room Pertinent Lab Results: Laboratory Tests 01/07/17 0657: Anion Gap 6, Estimated GFR > 60, BUN/Creatinine Ratio 18.0, CBC w Diff MAN DIFF ORDERED, RBC 3.00 L, MCV 96.2 H, MCH 31.5 H, RDW 15.0 H, MPV 8.4, Gran % 93.1 H, Lymphocytes % 3.1 L, Monocytes % 3.8, Eosinophils % 0, Basophils % 0 L, Absolute Granulocytes 7.4 H, Absolute Lymphocytes 0.2 L, Absolute Monocytes 0.3, Absolute Eosinophils 0, Absolute Basophils 0, Platelet Estimate VERIFIED BY SMEAR, Poikilocytosis 1+, Anisocytosis 1+, Ovalocytes 1+, PUBS MCHC 32.7 L 01/06/17 0630: Anion Gap 6, Estimated GFR 60, BUN/Creatinine Ratio 20.8, CBC w Diff NO MAN DIFF REQ, RBC 3.02 L, MCV 96.4 H, MCH 31.8 H, RDW 15.3 H, MPV 8.4, Gran % 76.8 H , Lymphocytes % 7.6 L, Monocytes % 12.3 H, Eosinophils % 2.9, Basophils % 0.4, Absolute Granulocytes 7.4 H, Absolute Lymphocytes 0.7 L, Absolute Monocytes 1.2 H, Absolute Eosinophils 0.3, Absolute Basophils 0, PUBS MCHC 33.0 01/05/179: Urine Color YEL, Urine Clarity CLEAR, Urine pH 6.0, Ur Specific [place] 1.015, Urine Protein NEG, Urine Ketones NEG, Urine Nitrite NEG, Urine Bilirubin NEG, Urine Urobilinogen 0.2, Ur Leukocyte Esterase NEG, Ur Microscopic EXAM NOT REQUIRED, Urine Hemoglobin NEG, Urine Glucose NEG White count was 11,200 and admission. Again all the cultures were negative. Disposition Summary Disposition Principal Diagnosis: Right knee swelling and fever due to acute gouty attack/ Additional Diagnosis: COPD Atrial fibrillation Chronic kidney disease CHF Hypertension Diabetes mellitus 2 Gout GERD. Discharge Disposition: home health services Discharge Instructions General Discharge Information Code Status: Full Code Patient's Diet: Purine free , healthy the heart diet low carbohydrates Patient's Activity: As tolerated Follow-Up Instructions/Appts: Follow-up Dr. Lopez, Dr. Lucas, Aydin Izaguirre MD. Medications at Discharge Discharge Medications: Continue taking these medications: Albuterol Sulfate (Ventolin Hfa) 90 MCG HFA.AER.AD 2 Puff Inhale through mouth EVERY 4-6 HOURS NEEDED as needed for SHORTNESS OF BREATH Comments: NOT TAKEN IN HOSPITAL Fluticasone/Salmeterol (Advair 250-50 Diskus) 250 MCG-50 MCG/DOSE BLST.W.DEV 1 Puff Inhale through mouth TWICE DAILY Comments: NOT GIVEN Apixaban (Eliquis) 5 MG TABLET 1 Tablet ORAL TWICE DAILY Comments: Last Taken: 01/08/17 Time: 1000 Albuterol Sulfate (Albuterol Sulfate) 2.5 MG/3 ML (0.083 %) VIAL.NEB 1 Vial Inhale Solution EVERY 4 HOURS NEEDED as needed for SHORTNESS OF BREATH Comments: Last Taken:01/08/17 Time:1200 Allopurinol (Allopurinol) 300 MG TABLET 1 Tablet ORAL DAILY Comments: Last Taken: 01/08/17 Time: 1000 Atorvastatin Calcium (Lipitor) 40 MG TABLET 1 Tablet ORAL Every night Comments: Last Taken: 01/07/17 Time: 2100 Digoxin (Digoxin) 125 MCG TABLET 1 Tablet ORAL DAILY Comments: Last Taken: 01/07/17 Time: 1800 Amiodarone HCl (Amiodarone HCl) 200 MG TABLET 1 Tablet ORAL DAILY Comments: Last Taken: 01/08/17 Time: 1137 Pantoprazole Sodium (Protonix) 20 MG TABLET.DR 1 Tablet ORAL DAILY Comments: Last Taken: 01/08/17 Time:7AM Lisinopril (Lisinopril) 10 MG TABLET 1 Tablet ORAL DAILY Instructions: Reason to Stop at ADM: CHAKA Comments: Last Taken: 01/08/17 Time: 1137 Tiotropium [place] (Spiriva) 18 MCG CAP.W.DEV 1 PUFF Inhale through mouth DAILY Comments: Last Taken: 01/08/17 Time: 1000 AM Spironolactone (Aldactone) 25 MG TABLET 1 Tablet ORAL DAILY Qty = 30 Comments: Last Taken: 01/08/17 Time: 1000 Diltiazem HCl (Cartia Xt) 120 MG CAP.ER.24H 1 Capsule ORAL DAILY Qty = 90 Comments: Last Taken: 01/08/17 Time: 1137 Prednisone (Prednisone) 10 MG TABLET 1 Tablet ORAL TWICE DAILY as needed for COPD Comments: Last Taken: 01/08/17 Time: 1000 AM Metoprolol Succinate (Metoprolol Succinate) 50 MG TAB.ER.24H 1 Tablet ORAL DAILY Qty = 90 Start taking the following new medications: Colchicine (Colchicine) 0.6 MG TABLET 600 Microgram ORAL DAILY Qty = 2 No Refills Comments: Last Taken: 01/08/17 Time: 1000 Copies To: SARAH MENON,NICOLETTE; BRETT MENON,AYDIN Arreguin; JENNIFER MENON,MAYRA Miller; DESHAWN LOPEZ MD Attending Review Statement Documenting Attending: DESHAWN LOPEZ MD
== END 2017-01-08 15:06 | DRG 554 ==
LOC: ERH 11:45 → ERHI 13:27 → 2NA 13:27 → ENRESERV 14:59 → EDBEDREQ 15:44 → ENTRNSPT 16:17 → 2NA 16:48 → CMPTRNSPT 17:01 → 2NA 01-08 15:06
PROVIDERS: Internal Medicine Hematology & Oncology; Physician Assistant; Student in an Organized Health Care Education/Training Program; ADMIT Internal Medicine
PROC: 0S9C3ZX Drainage of Right Knee Joint, Percutaneous Approach, Diagnostic (ICD-10-PCS; principal; 2017-01-05)
DX: M10.9 Gout, unspecified (principal); I13.0 Hypertensive heart and chronic kidney disease with heart failure and stage 1 through stage 4 chronic kidney disease, or unspecified chronic kidney disease; I50.9 Heart failure, unspecified; E11.22 Type 2 diabetes mellitus with diabetic chronic kidney disease; J44.9 Chronic obstructive pulmonary disease, unspecified; Z99.81 Dependence on supplemental oxygen; M25.461 Effusion, right knee; I48.2 Chronic atrial fibrillation; K21.9 Gastro-esophageal reflux disease without esophagitis; E78.5 Hyperlipidemia, unspecified; N18.9 Chronic kidney disease, unspecified; Z79.01 Long term (current) use of anticoagulants
CPT/HCPCS: 2NASP; 87075; 36415; 73562-RT; 81003; 82436; 87040; 89060; 93005; 93010; 96361; 96374; 96375; 97116-GO; 97162-GP; 97530-GO; J0131; J2405; J2765; J3490; J7512

== ENCOUNTER 2017-02-12 17:21 | Inpatient (IN) | payer OTHER ==
[~2017-02-12] VITALS: Ht 188 cm; Wt 84.8 kg
[~2017-02-12 17:21] MED LIST changes: +COLCHICINE0.6 M2 PO; +METOPROLOL SUCC50 M2 PO
--- NOTE | 2017-02-12 17:29 | ED GENERAL ADULT ---
History of Present Illness General Chief Complaint: General Adult Stated Complaint: SOB,FEVER,WEAKNESS Source: patient Exam Limitations: no limitations Vital Signs & Intake/Output Vital Signs & Intake/Output Vital Signs Date Time Temp Pulse Resp B/P B/P Pulse O2 O2 Flow FiO2 Mean Ox Delivery Rate 02/15 1543 94 Nasal 2.0L Cannula 02/15 1519 98.5 65 20 126/64 97 02/15 0912 97 Nasal 2.0L Cannula 02/15 0852 66 126/68 02/15 0800 93 Nasal 2.0L Cannula 02/15 0743 97.8 67 20 128/66 98 Nasal 2.0L Cannula 02/15 0000 Nasal 2.0L Cannula 02/14 2350 98.3 67 20 113/60 93 Nasal 2.0L Cannula ED Intake and Output 02/15 0000 02/14 1200 Intake Total 1400 490 Output Total Balance 1400 490 Intake, IV 10 Intake, Oral 1400 480 Number 1 Bowel Movements Allergies Coded Allergies: NO KNOWN ALLERGIES (08/21/15) Triage Nurses Notes Reviewed? yes Onset: Gradual Duration: day(s): (2) Timing: recent history Injury Environment: home Severity: severe Severity Numbers: 9 Modifying Factors: Improves With: immobilization. Worsens With: movement. HPI: Patient is a 71-year-old male with history of COPD presenting to the emergency department with chief complaint of generalized malaise, tactile fevers, intermittent productive cough 2 days. Patient reports that he stopped his blood thinner medication, which she takes for A. fib, approximately 2 weeks ago, he stopped it prior to a knee procedure. Unsure when he spoke to resume taking it. Denies any recent travel. Patient does report intermittent lower extremities swelling. Had multiple arthrocentesis done on the right knee over the past month or 2. Has been followed up with an orthopedic. Patient also reports shortness of breath and chest tightness. Has been using at home inhalers without relief. On oxygen, nasal cannula chronically at home, 2 L. (JAD PEREZ) Reconcile Medications Albuterol Sulfate (Ventolin Hfa) 90 MCG HFA.AER.AD 2 PUF INH Q4-6 PRN PRN SHORTNESS OF BREATH (Reported) Albuterol Sulfate 2.5 MG/3 ML (0.083 %) VIAL.NEB 1 Vial INH/KIMANI Q4P PRN SHORTNESS OF BREATH (Reported) Allopurinol 300 MG TABLET 0.5 TAB PO DAILY GOUT (Reported) Amiodarone HCl 200 MG TABLET 1 TAB PO DAILY HEART (Reported) Digoxin 125 MCG TABLET 1 TAB PO DAILY HEART (Reported) Diltiazem HCl (Cartia Xt) 120 MG CAP.ER.24H 1 CAP PO DAILY HEART (Reported) Fluticasone/Salmeterol (Advair 250-50 Diskus) 250 MCG-50 MCG/DOSE BLST.W.DEV 1 PUF INH BID COPD (Reported) Lisinopril 10 MG TABLET 1 TAB PO DAILY HIGH BLOOD PRESSURE (Reported) Metoprolol Succinate 50 MG TAB.ER.24H 1 TAB PO DAILY HEART (Reported) Moxifloxacin HCl (Avelox) 400 MG TABLET 1 TAB PO DAILY Pneumonia Pantoprazole Sodium (Protonix) 20 MG TABLET.DR 2 TAB PO DAILY ACID REFLUX ( Reported) Prednisone 10 MG TABLET 1 TAB PO DAILY COPD (Reported) Please start back on this dose after you have completed the taper Prednisone 10 MG TABLET 1 TAB PO AD copd 02/16 - 02/17 40MG 02/18 - 02/20 30MG 02/21 - 02/23 20MG Spironolactone (Aldactone) 25 MG TABLET 1 TAB PO DAILY CHF (Reported) Tiotropium [place] (Spiriva) 18 MCG CAP.W.DEV 1 PUFF INH DAILY COPD (Reported ) (SUBHA MENON,WILLIAM Tracy) Past History Travel History Traveled to [place] past 21 day No Medical History Any Pertinent Medical History? see below for history Neurological: NONE EENT: cataracts Cardiovascular: AFIB, CHF, hypertension, hyperlipidemia Respiratory: COPD (2L O2& steroid dependent), O2 DEP 2L Gastrointestinal: GERD, pancreatitis Hepatic: hepatic cysts Renal: chronic kidney disease Musculoskeletal: gout Psychiatric: NONE Endocrine: diabetes (insulin-requiring) Blood Disorders: NONE Cancer(s): NONE JAIL GUARD/Reproductive: NONE History of MRSA: No History of VRE: No History of CDIFF: No Tetanus Vaccine: 06/30/14 Surgical History Surgical History: appendectomy, cataract removal, knee replacement (bilateral) Psychosocial History Who do you live with Family Services at Home Oxygen What is your primary language [place]an Family History Family History, If Any: BROTHER, ; Cause: Brain cancer. Uncle ([place] at age 40). FH: myocardial infarction SISTER FH: lung cancer FATHER Hx Contributory? No (JAD PEREZ) Review of Systems Review of Systems Constitutional: Reports: fever, malaise, weakness. Comments Review of systems: See HPI, All other systems negative. Constitutional, no weight loss HEENT: No visual changes no sore throat Cardiovascular: No chest pain ,palpitation , orthopnea or ankle swelling Skin, no jaundice no rashes Respiratory: No hemoptysis GI: No nausea no vomiting : No dysuria No hematuria Muscle skeletal: no back pain, no neck pain, Neurologic: No numbness no confusion Psych: No stress anxiety or depression,. Heme/endocrine: No bruising no bleeding no polyuria or polydipsia Immunology: No splenectomy or history of AIDS (JAD PEREZ) Physical Exam Physical Exam General Appearance: well developed/nourished, alert, awake, mild distress Comments: Well-developed well-nourished person in mild distress HEENT: Pupils equally round and reactive to light and accommodation. Nose is atraumatic. External auditory canal and Tympanic membranes clear. Pharynx normal. No swelling or edema. slightly dry oral mucosa Neck: NORMAL INSPECTION Back: Nontender Cardiovascular: Regular rate and rhythms no murmurs rubs or gallops, normal JVP Respiratory: Chest nontender. Moderate respiratory distress.diffuse wheezing to auscultation bilaterally. Abdomen: Soft, nontender nondistended, no appreciable organomegaly. Normal bowel sounds. No ascites, no rebound or guarding. Extremity: No edema, right calf tenderness to palpation, no left calf tenderness , normal and equal pulses. Old surgical scar noted over the patellas bilaterally. No surrounding erythema or edema. No warmth to palpation. Neuro: Alert oriented x3 Skin: No appreciable rash on exposed skin, skin is warm and dry. Psych: Mood and affect is normal, memory and judgment is normal. Core Measures ACS in differential dx? Yes CVA/TIA Diagnosis: No Severe Sepsis Present: No Septic Shock Present: No (JAD PEREZ) Progress Differential Diagnoses I considered the following diagnoses in my evaluation of the patient: DVT, dehydration, actually abnormality, pneumonia, pulmonary embolism, COPD exacerbation Plan of Care: Orders Procedure Date/time Status SPECIMEN TO BE OBTAINED 02/15 06 Active LOWER RESPIRATORY CULTURE 02/15 06 Active Discharge Patient 02/15 UNK Active Laboratory Tests 02/15/17 0722: Anion Gap 8, Estimated GFR 60, BUN/Creatinine Ratio 32.5 H, CBC w Diff NO MAN DIFF REQ, RBC 3.10 L, MCV 94.8 H, MCH 31.0, RDW 15.7 H, MPV 8.1, Gran % 93.3 H, Lymphocytes % 3.3 L, Monocytes % 3.4, Eosinophils % 0, Basophils % 0 L, Absolute Granulocytes 13.2 H, Absolute Lymphocytes 0.5 L, Absolute Monocytes 0.5, Absolute Eosinophils 0, Absolute Basophils 0, PUBS MCHC 32.7 L Microbiology 02/15 600 LOWER RESP: Respiratory Culture - COLB 02/15 600 LOWER RESP: Gram Stain - COLB Diagnostic Imaging: Viewed by Me: Radiology Read. Discussed w/RAD: Radiology Read. Radiology Impression: PATIENT: TESSA YANEZ JR PRESENT AGE: 71 PATIENT ACCOUNT NO: [id number] : 45 LOCATION: [facility] ORDERING PHYSICIAN: JAD DEL VALLE SERVICE DATE: 02/12/17 EXAM TYPE: RAD - XRY-PORTABLE CHEST XRAY EXAMINATION: XR PORTABLE CHEST CLINICAL INFORMATION: Increasing shortness of breath with fever. COMPARISON: Chest x-ray 01/05/2017 TECHNIQUE: Portable frontal view of the chest was obtained. 5:50 PM FINDINGS: Emphysematous lucencies with bibasilar mild chronic increased interstitial lung markings similar prior chest x-ray. No acute infiltrate. No pulmonary vascular congestion. No pleural effusion. Heart size is normal. Cardiac and mediastinal contours are normal. There are calcifications of the aortic arch. Healed fracture of the right lateral eighth rib. IMPRESSION: No acute abnormality of chest. DICTATED BY: WENDY FLAHERTY MD DATE/TIME DICTATED:1812 TUNNEL HEADING INSPECTOR:KIRSTY DATE/TIME TRANSCRIBED:02/12/171812, PATIENT: TESSA YANEZ JR PRESENT AGE: 71 PATIENT ACCOUNT NO: [id number] : 45 LOCATION: [facility] ORDERING PHYSICIAN: JAD DEL VALLE SERVICE DATE: 02/12/17 EXAM TYPE: CAT - CT CHEST WO IV CONTRAST EXAMINATION: CT CHEST WITHOUT CONTRAST CLINICAL INFORMATION: Shortness of breath, fever. COMPARISON: Same day chest radiograph. TECHNIQUE: Contiguous axial thin section helical images of the chest were performed without contrast. The data set was reformatted in the coronal and sagittal planes and reviewed on an independent workstation. DLP: 289 mGy-cm. FINDINGS: The heart is of normal size. There is no pericardial effusion. There is neither mediastinal, hilar nor axillary lymphadenopathy. There are no chest wall masses. Review of lung windows demonstrates that there are neither pleural effusions nor pneumothoraces. There are mild emphysematous changes noted within the lung apices. Within the lingula and posterior basal segment of the left lower lobe, there is patchy groundglass opacification. Images of the upper abdomen demonstrate that the liver is of normal size and attenuation without concerning focal lesions. There is a 1.2 cm cyst within the dome of the right lobe of the liver. Normal adrenal glands are identified. Bone windows: Neither sclerotic nor lytic bone lesions are identified. IMPRESSION: Nonspecific patchy groundglass opacification within the lingula and posterior basal segment of the left lower lobe. This is nonspecific, but could correspond to atelectasis or inflammatory or infectious processes. DICTATED BY: TESSA MORALES MD DATE/TIME DICTATED:02/12 TUNNEL HEADING INSPECTOR:KIRSTY DATE/TIME TRANSCRIBED:02/12/172000 CONFIDENTIAL, DO NOT COPY WITHOUT APPROPRIATE AUTHORIZATION. <Electronically signed in Other Vendor System> SIGNED BY: TESSA MORALES MD 02/12/172013 Initial ED EKG: NSR Comments: On arrival patient given IV Tylenol for fever of 101, breathing treatment initiated. Concern for pneumonia secondary to high fevers. Patient also required more oxygen than baseline. IV Solu-Medrol ordered. Patient informed of laboratory results. Shows dehydration, acute kidney injury. IV fluids initiated slowly. Patient will be admitted for acute kidney injury and COPD exacerbation. No signs of pneumonia on x-ray. (JAD PEREZ) Departure Departure Time of Disposition: 2000 Disposition: STILL A PATIENT Condition: Stable Clinical Impression Primary Impression: COPD exacerbation Secondary Impressions: Acute kidney injury Referrals: DESHAWN LEBRON MD (PCP/Family) Departure Forms: Customer Survey General Discharge Information Admission Note Spoke With: DESHAWN LEBRON MD Documentation of Exam: Documentation of any treatments & extenuating circumstances including Concerns Regarding Discharge (functional status, medication knowledge or non-compliance, living conditions, etc.) that warrant an admission rather than observation: Patient requiring serial DuoNeb treatments, IV steroids for COPD exacerbation, pulmonology consultation, pending CT patient may need IV antibiotics. Patient also requiring IV hydration for acute renal failure. (JAD PEREZ) Departure Prescriptions: Current Visit Scripts Moxifloxacin HCl (Avelox) 1 TAB PO DAILY #4 TAB Prednisone 1 TAB PO AD #23 TAB 02/16 - 02/17 40MG 02/18 - 02/20 30MG 02/21 - 02/23 20MG PA/ALLIGATOR SHEAR OPERATOR Co-Sign Statement Statement: ED Attending supervision documentation- [x] I saw and evaluated the patient. I have also reviewed all the pertinent lab results and diagnostic results. I agree with the findings and the plan of care as documented in the PA's/ALLIGATOR SHEAR OPERATOR's documentation. [] I have reviewed the ED Record and agree with the PA's/ALLIGATOR SHEAR OPERATOR's documentation. [] Additions or exceptions (if any) to the PAs/ALLIGATOR SHEAR OPERATOR's note and plan are summarized below: [] (SUBHA MENON,WILLIAM Tracy) Critical Care Note Critical Care Note Critical Care Time: non-applicable (JAD PEREZ) Diltiazem HCl 120 MG DAILY 02/13 1000 AC 02/13 (Cardizem CD) 0934 Tiotropium [place] 1 PUF DAILY 02/13 1000 AC 02/13 (Spiriva) 0933 Acetaminophen 650 MG Q6P PRN 02/13 0300 AC (Tylenol) Acetaminophen 1,000 MG Q6P PRN 02/13 0300 AC (Ofirmev) Oxycodone/ 1 TAB Q6P PRN 02/13 0300 AC Acetaminophen (Percocet) Albuterol Sulfate 3 ML Q4P PRN 02/12 2230 AC (Proventil) Albuterol Sulfate 2 PUF Q4-6 PRN PRN 02/12 2230 AC (Ventolin) Budesonide/ 2 PUF BID 02/12 2221 AC 02/13 Formoterol Fumarate 0932 (Symbicort) Laboratory Tests 02/13/17 0750: Anion Gap 11, Estimated GFR 46 L, BUN/Creatinine Ratio 22.7, Phosphorus 4.5, Magnesium 1.9, CBC w Diff NO MAN DIFF REQ, RBC 3.46 L, MCV 94.9 H, MCH 31.2 H , RDW 15.8 H, MPV 8.2, Gran % 96.3 H, Lymphocytes % 3.3 L, Monocytes % 0.4 L , Eosinophils % 0, Basophils % 0 L, Absolute Granulocytes 8.3 H, Absolute Lymphocytes 0.3 L, Absolute Monocytes 0 L, Absolute Eosinophils 0, Absolute Basophils 0, PUBS MCHC 32.8 L Microbiology 02/13 2120 BLOOD: Blood Culture - RES 02/13 2024 URINE ROUT: Legionella Antigen - CAN Cancelled: SPECIMEN NOT RECEIVED IN LABORATORY 02/13 2024 URINE ROUT: Streptococcus pneumoniae Antigen (M - CAN Cancelled: SPECIMEN NOT RECEIVED IN LABORATORY 02/13 2024 LOWER RESP: Respiratory Culture - CAN Cancelled: SPECIMEN NOT RECEIVED IN LABORATORY 02/13 2024 LOWER RESP: Gram Stain - CAN Cancelled: SPECIMEN NOT RECEIVED IN LABORATORY Diagnostic Imaging: Viewed by Me: Radiology Read. Discussed w/RAD: Radiology Read. Radiology Impression: PATIENT: TESSA YANEZ JR PRESENT AGE: 71 PATIENT ACCOUNT NO: [id number] : 45 LOCATION: ER ORDERING PHYSICIAN: JAD DEL VALLE SERVICE DATE: 02/12/17 EXAM TYPE: RAD - XRY-PORTABLE CHEST XRAY EXAMINATION: XR PORTABLE CHEST CLINICAL INFORMATION: Increasing shortness of breath with fever. COMPARISON: Chest x-ray 01/05/2017 TECHNIQUE: Portable frontal view of the chest was obtained. 5:50 PM FINDINGS: Emphysematous lucencies with bibasilar mild chronic increased interstitial lung markings similar prior chest x-ray. No acute infiltrate. No pulmonary vascular congestion. No pleural effusion. Heart size is normal. Cardiac and mediastinal contours are normal. There are calcifications of the aortic arch. Healed fracture of the right lateral eighth rib. IMPRESSION: No acute abnormality of chest. DICTATED BY: WENDY FLAHERTY MD DATE/TIME DICTATED:1812 TUNNEL HEADING INSPECTOR:KIRSTY DATE/TIME TRANSCRIBED:02/12/171812, PATIENT: TESSA YANEZ JR PRESENT AGE: 71 PATIENT ACCOUNT NO: [id number] : 45 LOCATION: ER ORDERING PHYSICIAN: JAD DEL VALLE SERVICE DATE: 02/12/17 EXAM TYPE: CAT - CT CHEST WO IV CONTRAST EXAMINATION: CT CHEST WITHOUT CONTRAST CLINICAL INFORMATION: Shortness of breath, fever. COMPARISON: Same day chest radiograph. TECHNIQUE: Contiguous axial thin section helical images of the chest were performed without contrast. The data set was reformatted in the coronal and sagittal planes and reviewed on an independent workstation. DLP: 289 mGy-cm. FINDINGS: The heart is of normal size. There is no pericardial effusion. There is neither mediastinal, hilar nor axillary lymphadenopathy. There are no chest wall masses. Review of lung windows demonstrates that there are neither pleural effusions nor pneumothoraces. There are mild emphysematous changes noted within the lung apices. Within the lingula and posterior basal segment of the left lower lobe, there is patchy groundglass opacification. Images of the upper abdomen demonstrate that the liver is of normal size and attenuation without concerning focal lesions. There is a 1.2 cm cyst within the dome of the right lobe of the liver. Normal adrenal glands are identified. Bone windows: Neither sclerotic nor lytic bone lesions are identified. IMPRESSION: Nonspecific patchy groundglass opacification within the lingula and posterior basal segment of the left lower lobe. This is nonspecific, but could correspond to atelectasis or inflammatory or infectious processes. DICTATED BY: TESSA MORALES MD DATE/TIME DICTATED:02/12 TUNNEL HEADING INSPECTOR:KIRSTY DATE/TIME TRANSCRIBED:02/12/172000 CONFIDENTIAL, DO NOT COPY WITHOUT APPROPRIATE AUTHORIZATION. <Electronically signed in Other Vendor System> SIGNED BY: TESSA MORALES MD 02/12/172013 Initial ED EKG: NSR Comments: On arrival patient given IV Tylenol for fever of 101, breathing treatment initiated. Concern for pneumonia secondary to high fevers. Patient also required more oxygen than baseline. IV Solu-Medrol ordered. Patient informed of laboratory results. Shows dehydration, acute kidney injury. IV fluids initiated slowly. Patient will be admitted for acute kidney injury and COPD exacerbation. No signs of pneumonia on x-ray. Departure Departure Time of Disposition: 2000 Disposition: STILL A PATIENT Condition: Stable Clinical Impression Primary Impression: COPD exacerbation Secondary Impressions: Acute kidney injury Referrals: DESHAWN LEBRON MD (PCP/Family) Departure Forms: Customer Survey General Discharge Information Admission Note Spoke With: DESHAWN LEBRON MD Documentation of Exam: Documentation of any treatments & extenuating circumstances including Concerns Regarding Discharge (functional status, medication knowledge or non-compliance, living conditions, etc.) that warrant an admission rather than observation: Patient requiring serial DuoNeb treatments, IV steroids for COPD exacerbation, pulmonology consultation, pending CT patient may need IV antibiotics. Patient also requiring IV hydration for acute renal failure. Critical Care Note Critical Care Note Critical Care Time: non-applicable
--- NOTE | 2017-02-12 17:32 | NUR ---
PRESENTS TO ED FOR EVALUATION OF FEVER, CHILLS AND INCREASE IN SOB X 1 WEEK. HE IS O2 DEPENDENT SECONDARY TO COPD. CONTINUES TO SMOKE INTERMITTENTLY. ALSO REPORTS NON PRODUCTIVE COUGH.
--- NOTE | 2017-02-12 18:16 | NUR ---
PT BLOOD SENT TO THE LAB AND BLOOD CUL
--- NOTE | 2017-02-12 18:18 | RADIOLOGY REPORT ---
EXAMINATION: XR PORTABLE CHEST CLINICAL INFORMATION: Increasing shortness of breath with fever. COMPARISON: Chest x-ray 01/05/2017 TECHNIQUE: Portable frontal view of the chest was obtained. 5:50 PM FINDINGS: Emphysematous lucencies with bibasilar mild chronic increased interstitial lung markings similar prior chest x-ray. No acute infiltrate. No pulmonary vascular congestion. No pleural effusion. Heart size is normal. Cardiac and mediastinal contours are normal. There are calcifications of the aortic arch. Healed fracture of the right lateral eighth rib. IMPRESSION: No acute abnormality of chest.
--- NOTE | 2017-02-12 18:21 | NUR ---
IV WAS ESTABLISHED AND TYLENOL IV INFUSING.
[2017-02-12 18:31] LABS: ABSOLUTE BASOPHIL COUNT 0.1 /CUMM (0.0-0.2); ABSOLUTE EOSINOPHIL COUNT 0.4 /CUMM (0.0-0.7); ABSOLUTE GRANULOCYTE CT 8.9 /CUMM (1.4-6.5); ABSOLUTE MONOCYTE COUNT 1.1 /CUMM (0.10-0.60); BASOPHIL % 0.8 % (0.0-2.0); EOSINOPHIL % 3.2 % (0-5); GRANULOCYTE % 77.5 % (42.2-75.2); HEMATOCRIT 33.1 % (42-52); MEAN CORPUSCULAR HGB 31.1 PG (27.0-31.0); MEAN CORPUSCULAR HGB CONC 32.8 G/DL (33.0-37.0); MEAN CORPUSCULAR VOLUME 94.9 FL (80.0-94.0); MEAN PLATELET VOLUME 7.8 FL (7.4-10.4); PLATELET COUNT 233 /CUMM (130-400); RBC DISTRIBUTION WIDTH 15.7 % (11.5-14.5); RED BLOOD CELL CT 3.49 /CUMM (4.70-6.10); WHITE BLOOD CELL COUNT 11.5 /CUMM (4.8-10.8)
--- NOTE | 2017-02-12 19:25 | NUR ---
ASSUMED CARE OF PT FROM PETER NINO. PT STATES HE IS O2 DEPENDENT ON 2L NC AT HOME, LIVES HOME WITH FAMILY AND IS AMBULATORY AT BASELINE, HOWEVER REPORTS BEING TAKEN OFF ANTICOAGULANT BY PCP D/T ?BLOOD POOLING IN R KNEE. PT REPORTS RELIEF FROM BREATHING TX ADMIN BY RESPIRATORY.
--- NOTE | 2017-02-12 19:38 | NUR ---
PT TO CAT SCAN AT THIS TIME
--- NOTE | 2017-02-12 20:06 | History & Physical ---
ERIK MENON,VAL 02/12/17 2004: General Information and HPI MD Statement: I have seen and personally examined TESSA WELCH JR and documented this H& P. The patient is a 71 year old M who presented with a patient stated chief complaint of [COPD exacerbation]. Source of Information: patient, family, old records Exam Limitations: no limitations History of Present Illness: pt is a 71 year old male with a history of COPD (O2 dependent 2L, on steroids), Paroxysmal AFIB eloquis is being held due to bleeding into his surgically replaced knee, CKD, CHF, HTN, DM, gout and GERD. He presented ED complaining of a 3 day history of fatigue, and SOB. He endorses hypersomnolance, nausea without vomiting, fever, chills, night sweats, chronic dry cough, and diziness on standing. Within the last 3 weeks he has had 2 artherocenteses on his R knee and blood was removed. Today he complains of swelling and tenderness of the L knee. 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 Uncle ([place] at age 40). FH: myocardial infarction SISTER FH: lung cancer FATHER Psychosocial History Who Do You Live With? spouse, 2 daughters, one son, granddaughter and her Services at Home: Oxygen Primary Language: Lao Functional Ability ADLs Independent: dressing, eating, toileting, bathing. Ambulation: independent IADLs Independent: shopping, housework, finances, food prep, telephone, transportation , medication admin. Review of Systems Review of Systems Constitutional: Reports: see HPI. EENTM: Denies: no symptoms. Cardiovascular: Denies: chest pain, palpitations. Respiratory: Reports: cough, short of breath. Denies: hemoptysis. GI: Reports: no symptoms. Genitourinary: Reports: no symptoms. Musculoskeletal: Reports: see HPI, joint pain, joint swelling. Skin: Reports: no symptoms. Neurological/Psychological: Reports: no symptoms. Hematologic/Endocrine: Reports: no symptoms. Immunologic/Allergic: Reports: no symptoms. Exam & Diagnostic Data Last 24 Hrs of Vital Signs/I&O Vital Signs Date Time Temp Pulse Resp B/P B/P Pulse O2 O2 Flow FiO2 Mean Ox Delivery Rate 02/13 0000 Nasal 2.0L Cannula 02/12 2239 98.5 87 19 128/62 93 Room Air 02/12 2231 Nasal 2.0L Cannula 02/12 2124 98.1 87 22 122/75 95 Nasal 2.0L Cannula 02/12 1929 98.7 02/12 1831 95 Nasal 3.0L Cannula 02/12 1820 101.7 02/12 1733 101.7 104 24 116/63 94 Nasal 2.5L Cannula Intake & Output 02/13 0800 02/13 0000 02/12 1600 Intake Total 710 125 Output Total Balance 710 125 Intake, IV 470 125 Intake, Oral 240 0 Number 0 Bowel Movements Patient 187 lb Weight Weight Reported by Patient Measurement Method Physical Exam General Appearance Alert, Oriented X3, Cooperative, No Acute Distress Skin No Breakdown, No Significant Lesion, pink scaley plaque on the back, claims it is eczema and is followed by a med peds Skin Temp/Moisture Exam: Warm/Dry Sepsis Skin Exam (color): Normal for Ethnicity HEENT Atraumatic, PERRLA, EOMI, Mucous Membr. moist/pink, poor dentition Neck Supple, No JVD, +2 Carotid Pulse wo Bruit Lymphatic Cervical nl Cardiovascular Regular Rate, Normal S1, Normal S2, No Murmurs Lungs expiratory wheezing appreciated Abdomen Normal Bowel Sounds, Soft, No Hepatospenomegaly, No Masses, mild tenderness to palpation Neurological Normal Speech, Strength at 5/5 X4 Ext, Cranial Nerves 3-12 NL Extremities No Edema, Normal Pulses, surgical scars over the patellas B/L, swelling, warmth, and tenderness of the R knee, no appreciable skin changes Vascular Normal Pulses, Pulses Symmetrical Sepsis Peripheral Pulse Location: Dorsalis Pedis Sepsis Peripheral Pulse Exam: Normal Sepsis Cap Refill Exam: <2 Sec Diagnostic Data CXR Results IMPRESSION: No acute abnormality of chest. Other Results US TRIPLEX OF LOWER EXTREMITIES, BILATER IMPRESSION: Normal triplex scan without evidence of deep venous thrombosis involving the lower extremities. CT CHEST WITHOUT CONTRAST IMPRESSION: Nonspecific patchy groundglass opacification within the lingula and posterior basal segment of the left lower lobe. This is nonspecific, but could correspond to atelectasis or inflammatory or infectious processes. Assessment/Plan Assessment: pt is a 71 year old male with a history of COPD , Paroxysmal AFIB e, CKD, CHF, HTN, DM, gout and GERD. He presented ED complaining of a 3 day history of fatigue, and SOB. He endorses hypersomnolance, nausea without vomiting, fever, chills, night sweats, chronic dry cough, and diziness on standing. Within the last 3 weeks he has had 2 artherocenteses on his L knee and blood was removed. Today he complains of swelling and tenderness of the R knee. Labs: WBC 11.5. H/H 10.9/33.1. Plts 233. Na 136, K 4.3, BUN 39, Cr 1.6. #Acute COPD exacerbaton CT chest showed opacificaiton which could possibly be atelectasis or pneumonia and triplex scan did not show evidence of a DVT. Do WBC was elevated (11.5). The pt has over a 50 year hx of smoking, and smokes everyday. - Solumedrol 40 mg Q8 - C/w ceftriaxone - IV azithromycin for anti-inflammatory properties - Pulmonary consult with Dr. Keller - [facility] evaluation - IS for possible atelectasis # History of knee effusions - Inform pt's rolling down machine operator Dr. Izaguirre of pt's status - Continue to hold eloquis due to previous bloody taps on knee # History of AFIB - F/U morning ECG - Confirm pt's med list, particularly amiodarone - Monitor digoxin levels - inform pt's excel vba developer Dr. 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 COPD 2. Knee pain 3. Joint effusion Core Measures/Miscellaneous Acute Coronary Syndrome ACS Diagnosis: No Cerebrovascular Accident CVA/TIA Diagnosis: No Congestive Heart Failure CHF Diagnosis: Yes Date of most recent Echo: 04/26/15 Last Known EF %: 40 VTE (View Protocol) VTE Risk Factors: Acute medical illness, Age > 40, CHF or Resp failure, Smoking [facility] prophylaxis d/t: No contraindications No VTE Pharm Prophylaxis d/t: Active bleeding VTE Diagnosis: No VTE Type: NONE VTE Confirmed by (Test): NONE Sepsis (View Protocol) Severe Sepsis Present: No Septic Shock Septic Shock Present: No Miscellaneous Documentation Attending Case Discussed With: DESHAWN LEBRON MD Primary Care Physician: DESHAWN LEBRON MD Patient sees these Specialists Dr. Mckay Izaguirre Level of Patient Care: General Medicine CASSIE MENON,[facility] 02/13/17 0431: General Information and HPI Allergies/Medications Home Med list Albuterol Sulfate (Ventolin Hfa) 90 MCG HFA.AER.AD 2 PUF INH Q4-6 PRN PRN SHORTNESS OF BREATH (Reported) Albuterol Sulfate 2.5 MG/3 ML (0.083 %) VIAL.NEB 1 Vial INH/KIMANI Q4P PRN SHORTNESS OF BREATH (Reported) Allopurinol 300 MG TABLET 0.5 TAB PO DAILY GOUT (Reported) Amiodarone HCl 200 MG TABLET 1 TAB PO DAILY HEART (Reported) Apixaban (Eliquis) 5 MG TABLET 1 TAB PO BID BLOOD THINNER (Reported) Atorvastatin Calcium (Lipitor) 40 MG TABLET 1 TAB PO QPM CHOLESTEROL ( Reported) Digoxin 125 MCG TABLET 1 TAB PO DAILY HEART (Reported) Diltiazem HCl (Cartia Xt) 120 MG CAP.ER.24H 1 CAP PO DAILY HEART (Reported) Fluticasone/Salmeterol (Advair 250-50 Diskus) 250 MCG-50 MCG/DOSE BLST.W.DEV 1 PUF INH BID COPD (Reported) Lisinopril 10 MG TABLET 1 TAB PO DAILY HIGH BLOOD PRESSURE (Reported) Reason to Stop at ADM: CHAKA Metoprolol Succinate 50 MG TAB.ER.24H 1 TAB PO DAILY HEART (Reported) Pantoprazole Sodium (Protonix) (Unknown Strength) TABLET.DR (Unknown Dose) PO DAILY ACID REFLUX (Reported) Prednisone 10 MG TABLET 1 TAB PO DAILY COPD (Reported) Please start back on this dose after you have completed the taper Prednisone 10 MG TABLET 1 TAB PO AD copd On Take 02/16-02/17 40 MG 02/18-02/20 30 MG 02/21-02/23 20 MG CONTINUE ON YOUR REGULAR PREDNISONE 10MG DAILY AFTER THIS Spironolactone (Aldactone) 25 MG TABLET 1 TAB PO DAILY CHF (Reported) Tiotropium [place] (Spiriva) 18 MCG CAP.W.DEV 1 PUFF INH DAILY COPD (Reported ) Resident Review Statement Resident Statement: examined this patient, discussed with engineer intern, agreed with engineer intern Other Findings: H: Mr Welch is a 71-year-old gentleman with PMH of COPD (on home oxygen 2 lit, steroid dependant), Paroxysmal A.fib (no longer on eliquis), CKD, CHF, HTN, Diabetes not on current management, gout and GERD who presented to the emergency department complaining of a non productivie cough and lethargy. Patient who is normally on home oxygen 2 L states that over the last 3 days he has felt rundown. He is also stated that he felt extremely lethargic and he states that he has had no "pzaz". He has been spending a lot of time asleep owing to increased fatigue. Approximately 4 weeks ago he was seen in the emergency department due to development of a right knee effusion. He was told to follow- up as an outpatient with the orthopedic service. He underwent multiple drainages of this effusion and given the fact that this effusion was contained a significant amount of blood he was told to follow-up with his excel vba developer Dr. Bashir. Patient states he saw Dr. Bashir a few days ago who stated that he should discontinue his Eliquis held as the patient was no longer in atrial fibrillation. Patient denies being exposed to any sick contacts. Does have a extensive smoking history of over 50+ years, he is a current everyday smoker. He states he consumes alcohol rarely. Pharmacy: [facility]. R: Review of systems the patient did endorse subjective fevers, chills and night sweats. He also reported chest tightness owing to his symptoms. He also endorsed occasional nausea and shortness of breath. E: Temperature 101.7. Respiratory rate 24. Blood pressure 116/63. Heart rate 104. HEENT: extraocular motion intact, no nystagmus. Pupils equally round and reactive to light and accommodation. Nose is atraumatic. External auditory canal and Tympanic membranes clear. Pharynx normal. No swelling or edema. No Cervical lymphadenopathy. Neck: Supple, no lymphadenopathy, normal range of motion without pain or tenderness Back: Nontender. Cardiovascular: Regular rate and rhythm no murmurs rubs or gallops. Respiratory: Chest nontender. Diffuse Expiraory wheezing +. Abdomen: Soft, tender with light palpation. nondistended, no appreciable organomegaly. Bowel sounds normal. No ascites, no rebound or guarding. Extremity: No edema, no calf tenderness to palpation, normal and equal pulses. Bilaterral Surgical Scars present on patellar (R and L). Right Leg > Left Leg. Strength 5/5 UE and LE. Neuro: Alert oriented to person and place,motor sensory normal, CN II to XII wnl. L: Labs at the time of admission White cell count 11.5. H&H 10.9 and 33.1. Platelets 233. Electrolytes sodium 136, potassium 4.3, BUNs 39, creatinine 1.6. I: EXAM TYPE: CAT - CT CHEST WO IV CONTRAST IMPRESSION: Nonspecific patchy groundglass opacification within the lingula and posterior basal segment of the left lower lobe. This is nonspecific, but could correspond to atelectasis or inflammatory or infectious processes. EXAM TYPE: RAD - XRY-PORTABLE CHEST XRAY IMPRESSION: No acute abnormality of chest. SERVICE DATE: 02/12/17 EXAM TYPE: US - US-EXT BILAT VENOUS DOPPLER IMPRESSION: Normal triplex scan without evidence of deep venous thrombosis involving the lower extremities. A/P Mr Welch is a 71-year-old gentleman with PMH of COPD (on home oxygen 2 lit, steroid dependant), Paroxysmal A.fib (no longer on eliquis), CKD, CHF, HTN, Diabetes not on current management, gout and GERD who presented to the emergency department complaining of a non productivie cough and lethargy. #Acute hypoxemia owing to COPD exacerbation and possible pneumonia. We will admit the patient on general medicine floor. Solu-Medrol 40 mg every 8. Continue IV ceftriaxone. IV azithromycin for anti-inflammatory properties. Pulmonary consultation in a.m. with Dr. Schneider TRC evaluation and nebulizer treatments when necessary Incentive Spirometer #History of atrial fibrillation Repeat EKG in a.m. Confirm about the patient's amiodarone as he is unaware what the status of this medication is. and whether he is required to take it. Check digoxin levels in a.m Inform Dr. Bashir of patient's admission to the hospital. #History of recurrent left knee effusions/hemearthtoses. Inform the patient's rolling down machine operator Dr. Izaguirre this patient's admission. Hold Eliquis. #Rule out DVT Patient did complain of some lower extremity pain at the time of admission A Doppler done at the time of admission at the emergency department was negative for any DVT. Continue to encourage ambulation. #History of nicotine dependence Smoking cessation counseling. Nicotine patch 14 mg when necessary. #History of CHF Continue Cardizem 120 mg #Diet Heart healthy. #DVT prophylaxis ALPS Code #DNR/DNI
--- NOTE | 2017-02-12 20:06 | Admission Certification ---
Admission Certification Certification Statement - As attending physician, I certify that at the time of - admission, based on clinical presentation, severity of - symptoms, need for further diagnostic testing and - therapeutic interventions, and risk of adverse outcomes - without in-hospital treatment, in my clinical assessment, - this patient requires an acute hospital stay for a minimum - of two nights or longer. I have also considered psychsocial - factors such as support system, advanced age, financial - issues, cognitive issues, and failed out-patient treatments, - past re-admission history, safety of patient, and lack of - compliance as applicable. Specific rationale supporting this admission is: Fever SOB hypoxemia leukocytosis COPD exacerbation ARF
--- NOTE | 2017-02-12 20:09 | PN- Att Addend ---
Attending Addendum Attending Brief Note 71 year old male sick for 2 days cough SOB fever comes to the ER low oxigen saturations high white count slight CECILY, will admit discussed with resident. patient having leg US. Laboratory Tests 02/12 02/12 1818 1736 Chemistry Sodium (137 - 145 mmol/L) 136 L Potassium (3.5 - 5.1 mmol/L) 4.3 Chloride (98 - 107 mmol/L) 99 Carbon Dioxide (22 - 30 mmol/L) 28 Anion Gap (5 - 16) 9 BUN (9 - 20 mg/dL) 33 H Creatinine (0.7 - 1.2 mg/dL) 1.6 H Estimated GFR (>60 ml/min) 43 L BUN/Creatinine Ratio (7 - 25 %) 20.6 Glucose (65 - 99 mg/dL) 77 Lactic Acid (0.7 - 2.1 mmol/L) 1.5 Calcium (8.4 - 10.2 mg/dL) 9.4 Total Bilirubin (0.2 - 1.3 mg/dL) 0.8 AST (17 - 59 U/L) 18 ALT (21 - 72 U/L) 31 Alkaline Phosphatase (< 127 U/L) 65 Troponin I (<0.11 ng/ml) < 0.01 Cancelled Total Protein (6.3 - 8.2 g/dL) 5.6 L Albumin (3.5 - 5.0 g/dL) 3.4 L Globulin (1.9 - 4.2 gm/dL) 2.2 Albumin/Globulin Ratio (1.1 - 2.2 %) 1.5 Coagulation D-Dimer High Sensitivty (0 - 243 ng/ml) 239 Hematology CBC w Diff NO MAN DIFF REQ WBC (4.8 - 10.8 /CUMM) 11.5 H RBC (4.70 - 6.10 /CUMM) 3.49 L Hgb (14.0 - 18.0 G/DL) 10.9 L Hct (42 - 52 %) 33.1 L MCV (80.0 - 94.0 FL) 94.9 H MCH (27.0 - 31.0 PG) 31.1 H RDW (11.5 - 14.5 %) 15.7 H Plt Count (130 - 400 /CUMM) 233 MPV (7.4 - 10.4 FL) 7.8 Gran % (42.2 - 75.2 %) 77.5 H Lymphocytes % (20.5 - 51.1 %) 9.0 L Monocytes % (1.7 - 9.3 %) 9.5 H Eosinophils % (0 - 5 %) 3.2 Basophils % (0.0 - 2.0 %) 0.8 Absolute Granulocytes (1.4 - 6.5 /CUMM) 8.9 H Absolute Lymphocytes (1.2 - 3.4 /CUMM) 1.0 L Absolute Monocytes (0.10 - 0.60 /CUMM) 1.1 H Absolute Eosinophils (0.0 - 0.7 /CUMM) 0.4 Absolute Basophils (0.0 - 0.2 /CUMM) 0.1 PUBS MCHC (33.0 - 37.0 G/DL) 32.8 L CXR no acute infiltrates.
--- NOTE | 2017-02-12 20:14 | CT SCAN REPORT ---
EXAMINATION: CT CHEST WITHOUT CONTRAST CLINICAL INFORMATION: Shortness of breath, fever. COMPARISON: Same day chest radiograph. TECHNIQUE: Contiguous axial thin section helical images of the chest were performed without contrast. The data set was reformatted in the coronal and sagittal planes and reviewed on an independent workstation. DLP: 289 mGy-cm. FINDINGS: The heart is of normal size. There is no pericardial effusion. There is neither mediastinal, hilar nor axillary lymphadenopathy. There are no chest wall masses. Review of lung windows demonstrates that there are neither pleural effusions nor pneumothoraces. There are mild emphysematous changes noted within the lung apices. Within the lingula and posterior basal segment of the left lower lobe, there is patchy groundglass opacification. Images of the upper abdomen demonstrate that the liver is of normal size and attenuation without concerning focal lesions. There is a 1.2 cm cyst within the dome of the right lobe of the liver. Normal adrenal glands are identified. Bone windows: Neither sclerotic nor lytic bone lesions are identified. IMPRESSION: Nonspecific patchy groundglass opacification within the lingula and posterior basal segment of the left lower lobe. This is nonspecific, but could correspond to atelectasis or inflammatory or infectious processes.
--- NOTE | 2017-02-12 20:22 | NUR ---
BACK FROM ULTRA SOUND, REPORTS FEELING BETTER.
--- NOTE | 2017-02-12 20:27 | ULTRASOUND REPORT ---
EXAMINATION: US TRIPLEX OF LOWER EXTREMITIES, BILATERAL CLINICAL INFORMATION: Bilateral lower extremity pain. COMPARISON: None TECHNIQUE: Color-flow triplex imaging with spectral analysis and compression Doppler were performed on the lower extremities. FINDINGS: Respiratory variation, normal compression and augmented flow are noted throughout the lower extremities. The visualized common femoral vein, superficial femoral vein, profunda femoral vein, popliteal vein and midcalf peroneal and posterior tibial venous segments show no evidence of deep venous thrombosis. There is no Gutierrez's cyst. IMPRESSION: Normal triplex scan without evidence of deep venous thrombosis involving the lower extremities.
[2017-02-12 20:30] LABS: PT 11.3 SEC (9.4-12.5); PTT 28 SEC (25-37)
--- NOTE | 2017-02-12 21:23 | NUR ---
ROCEPHIN ADMINISTERED TIME 2123 D/T 2ND SET OF BLOOD CULTURES NEEDING TO BE DRAWN. 2ND SET DRAWN BY SOLITARIO BANG AND ANTIBIOTICS HUNG AT THIS TIME.
--- NOTE | 2017-02-12 21:26 | NUR ---
PT HAS BED ASSIGNMENT [id number].
--- NOTE | 2017-02-12 21:34 | NUR ---
HOUSE STAFF AT BEDSIDE
--- NOTE | 2017-02-12 22:10 | NUR ---
REPORT GIVEN TO PETER HODGE 2NB
--- NOTE | 2017-02-12 22:30 | NUR ---
PT ARRIVED TO UNIT FROM ED VIA WHEELCHAIR. PT AMBULATED FROM CHAIR TO BED WITH STEADY GAIT. VSS. 2L O2 NC, WHICH IS PT BASELINE. AFEBRILE. DENIES PAIN. PT ORIENTED TO ROOM AND EDUCATED CLIENT SERVICES ASSISTANT MASCORRO.
[2017-02-12 22:39] VITALS: BP 128/62
[2017-02-13 07:45] VITALS: BP 112/66
--- NOTE | 2017-02-13 09:08 | PN- Housestaff ---
Subjective Follow-up For: COPD Exacerbation Pneumonia Paroxismal Afib Subjective: Patient states "whatever they are giving me is working very well for me" and he feels much better than yestarday. Denies any fever, chills, SOB, Chest pain or overnight events. Review of Systems Constitutional: Denies: no symptoms. EENTM: Denies: no symptoms. Cardiovascular: Denies: no symptoms. Respiratory: Denies: no symptoms. Gastrointestinal: Denies: no symptoms. Genitourinary: Denies: no symptoms. Musculoskeletal: Denies: no symptoms. Skin: Denies: no symptoms. Neurological/Psychological: Denies: no symptoms. Objective Last 24 Hrs of Vital Signs/I&O Vital Signs Date Time Temp Pulse Resp B/P B/P Pulse O2 O2 Flow FiO2 Mean Ox Delivery Rate 02/13 1456 98.0 74 20 102/50 96 Nasal 2.0L Cannula 02/13 1437 98.0 74 20 102/50 02/13 1010 Nasal 2.0L Cannula 02/13 1004 96 Nasal 2.0L Cannula 02/13 0800 94 Nasal 2.0L Cannula 02/13 0745 97.5 80 20 112/66 95 Nasal 2.0L Cannula 02/13 0000 Nasal 2.0L Cannula 02/12 2239 98.5 87 19 128/62 93 Room Air 02/12 2231 Nasal 2.0L Cannula 02/12 2124 98.1 87 22 122/75 95 Nasal 2.0L Cannula 02/12 1929 98.7 02/12 1831 95 Nasal 3.0L Cannula 02/12 1820 101.7 02/12 1733 101.7 104 24 116/63 94 Nasal 2.5L Cannula Intake & Output 02/13 1600 02/13 0800 02/13 0000 Intake Total 710 125 Output Total Balance 710 125 Intake, IV 470 125 Intake, Oral 240 0 Number 0 Bowel Movements Patient 187 lb Weight Weight Reported by Patient Measurement Method Physical Exam General Appearance: Alert, Oriented X3, Cooperative, No Acute Distress Other Physical Findings: Skin No Breakdown, No Significant Lesion, pink scaley plaque on the back, claims it is psoriasis and 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 moist/pink, poor dentition Neck Supple, No JVD Lymphatic Cervical nl Cardiovascular Regular Rate, Normal S1, Normal S2, No Murmurs Lungs Decreased breath sounds on lung bases bilaterally, no wheezing Abdomen Normal Bowel Sounds, Soft, No Hepatospenomegaly, No Masses, mild tenderness to palpation Neurological Normal Speech, Strength at 5/5 X4 Ext, Cranial Nerves 3-12 NL Extremities No Edema, Normal Pulses, surgical scars over the patellas B/L, swelling, warmth, and tenderness of the R knee, no appreciable skin changes Vascular Normal Pulses, Pulses Symmetrical Current Medications: Current Medications Sig/Luis Start time Last Medication Dose Route Stop Time Status Admin Acetaminophen 650 MG Q6P PRN 02/13 0300 AC PO Acetaminophen 1,000 MG Q6P PRN 02/13 0300 AC IV Acetaminophen 0 .STK-MED ONE 02/12 1824 DC IV Acetaminophen 1,000 MG ONCE ONE 02/12 1800 DC 02/12 N/A 1 UNIT IV 02/12 1814 1820 Albuterol Sulfate 3 ML TID 02/13 1000 AC 02/13 INH 0958 Albuterol Sulfate 3 ML Q4P PRN 02/12 2230 AC INH Albuterol Sulfate 2 PUF Q4-6 PRN PRN 02/12 2230 AC INH Albuterol Sulfate 3 ML ONCE ONE 02/12 1830 DC 02/12 INH 02/12 1831 1831 Allopurinol 150 MG DAILY 02/13 1000 AC 02/13 PO 0934 Amiodarone HCl 200 MG DAILY 02/13 1319 AC 02/13 PO 1437 Atorvastatin Calcium 40 MG QPM 02/13 2200 AC PO Azithromycin 500 MG 02/13 AC Sodium Chloride 250 ML IV Azithromycin 500 MG DAILY 02/13 1000 DC Sodium Chloride 250 ML IV Azithromycin 500 MG ONCE ONE 02/12 2030 DC 02/12 Sodium Chloride 250 ML IV 02/12 2129 2151 Budesonide/ 2 PUF BID 02/12 2221 AC 02/13 Formoterol Fumarate INH 0932 Ceftriaxone Sodium 1,000 MG 2100 02/13 2100 AC IV Ceftriaxone Sodium 1,000 MG DAILY 02/13 1000 DC IV Ceftriaxone Sodium 0 .STK-MED ONE 02/12 2053 DC .ROUTE Ceftriaxone Sodium 1,000 MG ONCE ONE 02/12 2030 DC 02/12 IV 02/12 Digoxin 0.125 MG 1700 02/13 1700 AC PO Diltiazem HCl 120 MG DAILY 02/13 1000 AC 02/13 PO 0934 Ipratropium [place] 2.5 ML ONCE ONE 02/12 1830 DC 02/12 INH 02/12 183 1830 Methylprednisolone 40 MG Q12 02/13 2200 AC IV Methylprednisolone 40 MG Q8 02/12 2200 DC 02/13 IV 0506 Methylprednisolone 0 .STK-MED ONE 02/12 1927 DC .ROUTE Methylprednisolone 125 MG ONCE ONE 02/12 1830 DC 02/12 IV 02/12 183 1925 Oxycodone/ 1 TAB Q6P PRN 02/13 0300 AC Acetaminophen PO Patient Medication 1 ED .STK-MED ONE 02/13 1354 DC Teaching ED 02/13 1355 Sodium Chloride 1,000 ML SEE RATE 02/12 2030 DC 02/13 IV 02/13 0629 0339 Sodium Chloride 1,000 ML BOLUS ONE 02/12 1915 DC 02/12 IV 02/124 1925 Tiotropium [place] 1 PUF DAILY 02/13 1000 AC 02/13 INH 0933 Last 24 Hrs of Lab/Chacorta Results Last 24 Hrs of Labs/Mics: Laboratory Tests 02/13/17 0750: Anion Gap 11, Estimated GFR 46 L, BUN/Creatinine Ratio 22.7, Phosphorus 4.5, Magnesium 1.9, CBC w Diff NO MAN DIFF REQ, RBC 3.46 L, MCV 94.9 H, MCH 31.2 H , RDW 15.8 H, MPV 8.2, Gran % 96.3 H, Lymphocytes % 3.3 L, Monocytes % 0.4 L , Eosinophils % 0, Basophils % 0 L, Absolute Granulocytes 8.3 H, Absolute Lymphocytes 0.3 L, Absolute Monocytes 0 L, Absolute Eosinophils 0, Absolute Basophils 0, PUBS MCHC 32.8 L 02/12/17 1818: Anion Gap 9, Estimated GFR 43 L, BUN/Creatinine Ratio 20.6, Glucose 77, Lactic Acid 1.5, Calcium 9.4, Total Bilirubin 0.8, AST 18, ALT 31, Alkaline Phosphatase 65, Troponin I < 0.01, Total Protein 5.6 L, Albumin 3.4 L, Globulin 2.2, Albumin/Globulin Ratio 1.5, PT 11.3, INR 1.08, APTT 28, D-Dimer High Sensitivty 239, CBC w Diff NO MAN DIFF REQ, RBC 3.49 L, MCV 94.9 H, MCH 31.1 H, RDW 15.7 H, MPV 7.8, Gran % 77.5 H, Lymphocytes % 9.0 L, Monocytes % 9.5 H, Eosinophils % 3.2, Basophils % 0.8, Absolute Granulocytes 8.9 H, Absolute Lymphocytes 1.0 L, Absolute Monocytes 1.1 H, Absolute Eosinophils 0.4, Absolute Basophils 0.1, PUBS MCHC 32.8 L, Digoxin 1.0 02/12/17 1736: Troponin I Cancelled Microbiology 02/13 2120 BLOOD: Blood Culture - RES 02/13 2024 URINE ROUT: Legionella Antigen - CAN Cancelled: SPECIMEN NOT RECEIVED IN LABORATORY 02/13 2024 URINE ROUT: Streptococcus pneumoniae Antigen (M - CAN Cancelled: SPECIMEN NOT RECEIVED IN LABORATORY 02/13 2024 LOWER RESP: Respiratory Culture - CAN Cancelled: SPECIMEN NOT RECEIVED IN LABORATORY 02/13 2024 LOWER RESP: Gram Stain - CAN Cancelled: SPECIMEN NOT RECEIVED IN LABORATORY 02/12 1817 BLOOD: Blood Culture - RES Assessment/Plan Assessment: pt is a 71 year old male with a history of COPD , Paroxysmal AFIB e, CKD, CHF, HTN, DM, gout and GERD. He presented ED complaining of a 3 day history of fatigue, and SOB. He endorses hypersomnolance, nausea without vomiting, fever, chills, night sweats, chronic dry cough, and diziness on standing. Within the last 3 weeks he has had 2 artherocenteses on his L knee and blood was removed. Today he complains of swelling and tenderness of the R knee. Labs: WBC 11.5. H/H 10.9/33.1. Plts 233. Na 136, K 4.3, BUN 39, Cr 1.6. #Acute COPD exacerbation CT chest showed opacificaiton which could possibly be atelectasis or pneumonia and triplex scan did not show evidence of a DVT. Do WBC was elevated (11.5). The pt has over a 50 year hx of smoking, and smokes everyday. - Patient reports improvement in breathing and there is no wheezing on auscultation, IV Solumedrol decreased to 40 mg Q12 from Q8. - C/w ceftriaxone - IV azithromycin for anti-inflammatory properties - Pulmonary consult with Dr. arreaga. She will see the patient tomorrow morning. - TRC evaluation - IS for possible atelectasis #Rule out DVT Patient did complain of some lower extremity pain at the time of admission A Doppler done at the time of admission at the emergency department was negative for any DVT. Continue to encourage ambulation. # History of knee effusions - Continue to hold eloquis due to previous bloody taps on knee # History of AFIB - Will monitor digoxin levels - Pt's immigration judge Dr. Bashir was called regarding the patient`s condition. Awaiting call back. # Nicotine dependence - Admissions Rn on smoking cessation - nicotine patch 14mg prn # History of CHF - c/w Cardizem 120 mg - Heart healthy diet # DVT prophylaxis - ALPs # Patient is DNR/DNI Problem List: 1. COPD exacerbation 2. Joint effusion 3. Knee pain Pain Ratin Pain Location: Knee Pain Goal: Remain pain free Pain Plan: Pain pathway Tomorrow's Labs & Rationales: CBC(Pneumonia), BEP(CHAKA) DVT/Prophylaxis: mechanical
[2017-02-13 09:12] LABS: ABSOLUTE BASOPHIL COUNT 0 /CUMM (0.0-0.2); ABSOLUTE EOSINOPHIL COUNT 0 /CUMM (0.0-0.7); ABSOLUTE GRANULOCYTE CT 8.3 /CUMM (1.4-6.5); ABSOLUTE LYMPH COUNT 0.3 /CUMM (1.2-3.4); ABSOLUTE MONOCYTE COUNT 0 /CUMM (0.10-0.60); BASOPHIL % 0 % (0.0-2.0); EOSINOPHIL % 0 % (0-5); HEMATOCRIT 32.8 % (42-52); MEAN CORPUSCULAR HGB 31.2 PG (27.0-31.0); MEAN CORPUSCULAR HGB CONC 32.8 G/DL (33.0-37.0); MEAN CORPUSCULAR VOLUME 94.9 FL (80.0-94.0); MEAN PLATELET VOLUME 8.2 FL (7.4-10.4); PLATELET COUNT 226 /CUMM (130-400); RBC DISTRIBUTION WIDTH 15.8 % (11.5-14.5); RED BLOOD CELL CT 3.46 /CUMM (4.70-6.10); WHITE BLOOD CELL COUNT 8.7 /CUMM (4.8-10.8)
[2017-02-13 10:13] LABS: GRANULOCYTE % 96.3 % (42.2-75.2)
--- NOTE | 2017-02-13 13:40 | PN- Att Addend ---
Attending Addendum Attending Brief Note Patient looking and feeling better breathing better not short of breath at rest his temps are now down all other major changes in the white count is within normal limits today. We'll continue present treatment like ultrasound was negative for DVT 24 TOTALS 02/13 0000 02/12 0000 Intake Total 125 Output Total Balance 125 Intake, IV 125 Intake, Oral 0 Patient 187 lb Weight Weight Reported by Patient Measurement Method Current Medications Sig/Luis Start time Last Medication Dose Route Stop Time Status Admin Acetaminophen 650 MG Q6P PRN 02/13 0300 AC PO Acetaminophen 1,000 MG Q6P PRN 02/13 0300 AC IV Acetaminophen 0 .STK-MED ONE 02/12 1824 DC IV Acetaminophen 1,000 MG ONCE ONE 02/12 1800 DC 02/12 N/A 1 UNIT IV 02/12 181 1820 Albuterol Sulfate 3 ML TID 02/13 1000 AC 02/13 INH 0958 Albuterol Sulfate 3 ML Q4P PRN 02/12 2230 AC INH Albuterol Sulfate 2 PUF Q4-6 PRN PRN 02/12 2230 AC INH Albuterol Sulfate 3 ML ONCE ONE 02/12 1830 DC 02/12 INH 02/12 1831 1831 Allopurinol 150 MG DAILY 02/13 1000 AC 02/13 PO 0934 Amiodarone HCl 200 MG DAILY 02/13 1319 AC PO Atorvastatin Calcium 40 MG QPM 02/13 2200 AC PO Azithromycin 500 MG 2200 02/13 2200 AC Sodium Chloride 250 ML IV Azithromycin 500 MG DAILY 02/13 1000 DC Sodium Chloride 250 ML IV Azithromycin 500 MG ONCE ONE 02/12 2030 DC 02/12 Sodium Chloride 250 ML IV 02/129 2151 Budesonide/ 2 PUF BID 02/12 2221 AC 02/13 Formoterol Fumarate INH 0932 Ceftriaxone Sodium 1,000 MG 2100 02/13 2100 AC IV Ceftriaxone Sodium 1,000 MG DAILY 02/13 1000 DC IV Ceftriaxone Sodium 0 .STK-MED ONE 02/12 2053 DC .ROUTE Ceftriaxone Sodium 1,000 MG ONCE ONE 02/12 2030 DC 02/12 IV 02/12 Digoxin 0.125 MG 1700 02/13 1700 AC PO Diltiazem HCl 120 MG DAILY 02/13 1000 AC 02/13 PO 0934 Ipratropium [place] 2.5 ML ONCE ONE 02/12 1830 DC 02/12 INH 02/12 183 1830 Methylprednisolone 40 MG Q12 02/13 2200 AC IV Methylprednisolone 40 MG Q8 02/12 2200 DC 02/13 IV 0506 Methylprednisolone 0 .STK-MED ONE 02/12 1927 DC .ROUTE Methylprednisolone 125 MG ONCE ONE 02/12 1830 DC 02/12 IV 02/12 183 192 Oxycodone/ 1 TAB Q6P PRN 02/13 0300 AC Acetaminophen PO Sodium Chloride 1,000 ML SEE RATE 02/12 2030 DC 02/13 IV 02/13 0629 0339 Sodium Chloride 1,000 ML BOLUS ONE 02/12 191 DC 02/12 IV 02/12 2114 192 Tiotropium [place] 1 PUF DAILY 02/13 1000 AC 02/13 INH 0933 Laboratory Tests 02/13/17 0750: Anion Gap 11, Estimated GFR 46 L, BUN/Creatinine Ratio 22.7, Phosphorus 4.5, Magnesium 1.9, CBC w Diff NO MAN DIFF REQ, RBC 3.46 L, MCV 94.9 H, MCH 31.2 H , RDW 15.8 H, MPV 8.2, Gran % 96.3 H, Lymphocytes % 3.3 L, Monocytes % 0.4 L , Eosinophils % 0, Basophils % 0 L, Absolute Granulocytes 8.3 H, Absolute Lymphocytes 0.3 L, Absolute Monocytes 0 L, Absolute Eosinophils 0, Absolute Basophils 0, PUBS MCHC 32.8 L 02/12/171817: Anion Gap 9, Estimated GFR 43 L, BUN/Creatinine Ratio 20.6, Glucose 77, Lactic Acid 1.5, Calcium 9.4, Total Bilirubin 0.8, AST 18, ALT 31, Alkaline Phosphatase 65, Troponin I < 0.01, Total Protein 5.6 L, Albumin 3.4 L, Globulin 2.2, Albumin/Globulin Ratio 1.5, PT 11.3, INR 1.08, APTT 28, D-Dimer High Sensitivty 239, CBC w Diff NO MAN DIFF REQ, RBC 3.49 L, MCV 94.9 H, MCH 31.1 H, RDW 15.7 H, MPV 7.8, Gran % 77.5 H, Lymphocytes % 9.0 L, Monocytes % 9.5 H, Eosinophils % 3.2, Basophils % 0.8, Absolute Granulocytes 8.9 H, Absolute Lymphocytes 1.0 L, Absolute Monocytes 1.1 H, Absolute Eosinophils 0.4, Absolute Basophils 0.1, PUBS MCHC 32.8 L, Digoxin 1.0 02/12/17 1736: Troponin I Cancelled Microbiology Date/Time Procedure - Status Source Growth 02/13 2120 Blood Culture - RES BLOOD 02/13 2024 Legionella Antigen - CAN URINE ROUT Cancelled: SPECIMEN NOT RECEIVED IN LABORATORY 02/13 2024 Streptococcus pneumoniae Antigen (M - CAN URINE ROUT Cancelled: SPECIMEN NOT RECEIVED IN LABORATORY 02/13 2024 Respiratory Culture - CAN LOWER RESP Cancelled: SPECIMEN NOT RECEIVED IN LABORATORY 02/13 2024 Gram Stain - CAN LOWER RESP Cancelled: SPECIMEN NOT RECEIVED IN LABORATORY 02/12 1817 Blood Culture - RES BLOOD
[2017-02-13 14:56] VITALS: BP 102/50
[2017-02-13 16:40] VITALS: BP 116/62
[2017-02-13 22:48] VITALS: BP 128/66
[2017-02-14 08:05] VITALS: BP 114/52
[2017-02-14 08:38] LABS: ABSOLUTE BASOPHIL COUNT 0 /CUMM (0.0-0.2); ABSOLUTE EOSINOPHIL COUNT 0 /CUMM (0.0-0.7); ABSOLUTE GRANULOCYTE CT 14.4 /CUMM (1.4-6.5); ABSOLUTE LYMPH COUNT 0.3 /CUMM (1.2-3.4); ABSOLUTE MONOCYTE COUNT 0.3 /CUMM (0.10-0.60); BASOPHIL % 0 % (0.0-2.0); EOSINOPHIL % 0 % (0-5); GRANULOCYTE % 96.1 % (42.2-75.2); HEMATOCRIT 28.1 % (42-52); MEAN CORPUSCULAR HGB 31.2 PG (27.0-31.0); MEAN CORPUSCULAR VOLUME 94.6 FL (80.0-94.0); MEAN PLATELET VOLUME 8.2 FL (7.4-10.4); PLATELET COUNT 215 /CUMM (130-400); RBC DISTRIBUTION WIDTH 15.3 % (11.5-14.5); RED BLOOD CELL CT 2.97 /CUMM (4.70-6.10)
--- NOTE | 2017-02-14 08:40 | PN- Housestaff ---
See Addendum Subjective Follow-up For: COPD Exacerbation Pneumonia Paroxismal Afib Subjective: Patient stable, Vitals WNL. He feels he is back to his baseline health. Denies any fever, chills, SOB, Chest pain or palpitations. Review of Systems Constitutional: Reports: no symptoms. EENTM: Reports: no symptoms. Cardiovascular: Reports: no symptoms. Respiratory: Denies: cough. Gastrointestinal: Reports: no symptoms. Genitourinary: Reports: no symptoms. Musculoskeletal: Reports: no symptoms. Skin: Reports: no symptoms. Neurological/Psychological: Reports: no symptoms. Hematologic/Endocrine: Reports: no symptoms. Immunologic/Allergic: Reports: no symptoms. Objective Last 24 Hrs of Vital Signs/I&O Vital Signs Date Time Temp Pulse Resp B/P B/P Pulse O2 O2 Flow FiO2 Mean Ox Delivery Rate 02/14 1700 76 118/62 02/14 1600 95 Nasal 2.0L Cannula 02/14 1432 98.6 74 20 116/60 95 Nasal 2.0L Cannula 02/14 0859 63 114/52 02/14 0839 96 Nasal 2.0L Cannula 02/14 0805 98.3 63 20 114/52 94 Room Air 02/14 0800 94 Nasal 2.0L Cannula 02/14 0000 Nasal 2.0L Cannula 02/13 2248 98.2 74 20 128/66 96 Room Air Intake & Output 02/14 1600 02/14 0800 02/14 0000 Intake Total 800 490 730 Output Total Balance 800 490 730 Intake, IV 10 250 Intake, Oral 800 480 480 Number 1 1 Bowel Movements Physical Exam General Appearance: Alert, Oriented X3, Cooperative, No Acute Distress Other Physical Findings: Skin No Breakdown, No Significant Lesion, pink scaley plaque on the back, claims it is psoriasis 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 moist/pink, poor dentition Neck Supple, No JVD Lymphatic Cervical nl Cardiovascular Regular Rate, Normal S1, Normal S2, No Murmurs Lungs Expiratory Wheezing Abdomen Normal Bowel Sounds, Soft, No Hepatospenomegaly, No Masses, mild tenderness to palpation Neurological Normal Speech, Strength at 5/5 X4 Ext, Cranial Nerves 3-12 NL Extremities No Edema, Normal Pulses, surgical scars over the patellas B/L, swelling, warmth, and tenderness of the R knee, no appreciable skin changes Vascular Normal Pulses, Pulses Symmetrical Current Medications: Current Medications Sig/Luis Start time Last Medication Dose Route Stop Time Status Admin Acetaminophen 650 MG Q6P PRN 02/13 0300 AC PO Acetaminophen 1,000 MG Q6P PRN 02/13 0300 AC IV Albuterol Sulfate 3 ML TID 02/13 1000 AC 02/14 INH 1343 Albuterol Sulfate 3 ML Q4P PRN 02/12 2230 AC INH Albuterol Sulfate 2 PUF Q4-6 PRN PRN 02/12 2230 AC INH Allopurinol 150 MG DAILY 02/15 1000 AC PO Allopurinol 150 MG DAILY 02/13 1000 DC 02/14 PO 0859 Amiodarone HCl 200 MG DAILY 02/13 1319 AC 02/14 PO 0859 Atorvastatin Calcium 40 MG QPM 02/13 2200 AC 02/13 PO 2227 Azithromycin 500 MG 22002/13 2200 AC 02/13 Sodium Chloride 250 ML IV 2227 Budesonide/ 2 PUF BID 02/12 2221 AC 02/14 Formoterol Fumarate INH 0858 Ceftriaxone Sodium 1,000 MG 2100 02/13 2100 AC 02/13 IV 2227 Digoxin 0.125 MG 1700 02/13 1700 AC 02/14 PO 1700 Diltiazem HCl 120 MG DAILY 02/13 1000 AC 02/14 PO 0859 Methylprednisolone 40 MG Q24 02/14 1000 AC 02/14 IV 0859 Methylprednisolone 40 MG Q12 02/13 2200 DC 02/13 IV 2228 Oxycodone/ 1 TAB Q6P PRN 02/13 0300 AC Acetaminophen PO Tiotropium [place] 1 PUF DAILY 02/13 1000 AC 02/14 INH 0858 Assessment/Plan Assessment: pt is a 71 year old male with a history of COPD , Paroxysmal AFIB e, CKD, CHF, HTN, DM, gout and GERD. He presented ED complaining of a 3 day history of fatigue, and SOB. He endorses hypersomnolance, nausea without vomiting, fever, chills, night sweats, chronic dry cough, and diziness on standing. Within the last 3 weeks he has had 2 artherocenteses on his L knee and blood was removed. Today he complains of swelling and tenderness of the R knee. Labs: WBC 11.5. H/H 10.9/33.1. Plts 233. Na 136, K 4.3, BUN 39, Cr 1.6. #Acute COPD exacerbation CT chest showed opacificaiton which could possibly be atelectasis or pneumonia and triplex scan did not show evidence of a DVT. Do WBC was elevated (11.5). The pt has over a 50 year hx of smoking, and smokes everyday. - Patient reports improvement in breathing and there is no wheezing on auscultation, IV Solumedrol decreased to 40 mg Q24. Possibaly transition to PO prednisone tomorrow. - C/w ceftriaxone - IV azithromycin for anti-inflammatory properties - Pulmonary consult: Awaiting recommensations. - TRC evaluation - IS for possible atelectasis #Rule out DVT Patient did complain of some lower extremity pain at the time of admission A Doppler done at the time of admission at the emergency department was negative for any DVT. Continue to encourage ambulation. # History of knee effusions - Continue to hold eloquis due to previous bloody taps on knee. # History of AFIB - Will monitor digoxin levels - Pt's director of digital platforms Dr. Bashir was called regarding the patient`s condition. Awaiting call back. 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 Acute exacerbation of chronic obstructive airways disease 2. Bacterial pneumonia Pain Ratin Pain Location: None Pain Goal: Remain pain free Pain Plan: None Tomorrow's Labs & Rationales: CBC(Pneumonia), BEP(High Cr)
[2017-02-14 14:32] VITALS: BP 116/60
--- NOTE | 2017-02-14 17:59 | Cons- Rheumatology ---
General Information and HPI Consulting Request Date of Consult: 02/14/17 Requested By: DESHAWN LEBRON MD Reason for Consult: Evaluate his enlarged right knee Source of Information: patient, old records Exam Limitations: no limitations History of Present Illness: This is a 71-year-old male with severe COPD who I have been treating for gout. He was admitted to the hospital with fever and weakness and found to have a pneumonia. I'm asked to see him in consultation because of his recent problem with a hemarthrosis of his right knee. I've been following Mr. Welch since June 2014 to treat his gout. He has done well on allopurinol 150 mg daily. He is also known to have psoriasis. When seen 1 year ago his gout was under control and a uric acid level was good at 5.6. However last month he was hospitalized from January 05 through January 08 with a swollen right knee. After difficulty apparently his knee was tapped and there were uric acid crystals present. He was discharged from the hospital although I'm did not see him in consultation at that time on prednisone. When he came to my office on January 17 I tapped his knee and obtained 30 mL of dark blood. He noted that he has been on Enriqueta Venkata per his aircraft engineer Dr. Bashir for paroxysmal atrial fibrillation. I saw him exactly 1 week later and tapped another 45 mL of dark blood and injected Depo-Medrol. I felt the Enriqueta Osmani was contributing to the hemarthrosis and after discussing the case with Dr. Bashir Enriqueta Krishna was discontinued approximately 2 weeks ago. Since that time he feels the knee has improved. I'm asked to see him and evaluate the condition of it. Should be noted that this right knee underwent an arthroplasty approximately 18 years ago. Allergies/Medications Allergies: Coded Allergies: NO KNOWN ALLERGIES (08/21/15) Home Med List: Albuterol Sulfate (Ventolin Hfa) 90 MCG HFA.AER.AD 2 PUF INH Q4-6 PRN PRN SHORTNESS OF BREATH (Reported) Albuterol Sulfate 2.5 MG/3 ML (0.083 %) VIAL.NEB 1 Vial INH/KIMANI Q4P PRN SHORTNESS OF BREATH (Reported) Allopurinol 300 MG TABLET 0.5 TAB PO DAILY GOUT (Reported) Amiodarone HCl 200 MG TABLET 1 TAB PO DAILY HEART (Reported) Apixaban (Eliquis) 5 MG TABLET 1 TAB PO BID BLOOD THINNER (Reported) Atorvastatin Calcium (Lipitor) 40 MG TABLET 1 TAB PO QPM CHOLESTEROL ( Reported) Digoxin 125 MCG TABLET 1 TAB PO DAILY HEART (Reported) Diltiazem HCl (Cartia Xt) 120 MG CAP.ER.24H 1 CAP PO DAILY HEART (Reported) Fluticasone/Salmeterol (Advair 250-50 Diskus) 250 MCG-50 MCG/DOSE BLST.W.DEV 1 PUF INH BID COPD (Reported) Lisinopril 10 MG TABLET 1 TAB PO DAILY HIGH BLOOD PRESSURE (Reported) Reason to Stop at ADM: CHAKA Metoprolol Succinate 50 MG TAB.ER.24H 1 TAB PO DAILY HEART (Reported) Pantoprazole Sodium (Protonix) (Unknown Strength) TABLET.DR (Unknown Dose) PO DAILY ACID REFLUX (Reported) Prednisone 10 MG TABLET 1 TAB PO DAILY COPD (Reported) Spironolactone (Aldactone) 25 MG TABLET 1 TAB PO DAILY CHF (Reported) Tiotropium [place] (Spiriva) 18 MCG CAP.W.DEV 1 PUFF INH DAILY COPD (Reported ) Current Medications: Current Medications Sig/Luis Start time Last Medication Dose Route Stop Time Status Admin Acetaminophen 650 MG Q6P PRN 02/13 0300 AC PO Acetaminophen 1,000 MG Q6P PRN 02/13 0300 AC IV Albuterol Sulfate 3 ML TID 02/13 1000 AC 02/14 INH 1343 Albuterol Sulfate 3 ML Q4P PRN 02/12 2230 AC INH Albuterol Sulfate 2 PUF Q4-6 PRN PRN 02/12 2230 AC INH Allopurinol 150 MG DAILY 02/15 1000 AC PO Allopurinol 150 MG DAILY 02/13 1000 DC 02/14 PO 0859 Amiodarone HCl 200 MG DAILY 02/13 1319 AC 02/14 PO 0859 Atorvastatin Calcium 40 MG QPM 02/13 2200 AC 02/13 PO 2227 Azithromycin 500 MG 2200 02/13 2200 AC 02/13 Sodium Chloride 250 ML IV 2227 Budesonide/ 2 PUF BID 02/12 222 AC 02/14 Formoterol Fumarate INH 0858 Ceftriaxone Sodium 1,000 MG 2100 02/13 2100 AC 02/13 IV 2227 Digoxin 0.125 MG 1700 02/13 1700 AC 02/14 PO 1700 Diltiazem HCl 120 MG DAILY 02/13 1000 AC 02/14 PO 0859 Methylprednisolone 40 MG Q24 02/14 1000 AC 02/14 IV 0859 Methylprednisolone 40 MG Q12 02/13 2200 DC 02/13 IV 2228 Oxycodone/ 1 TAB Q6P PRN 02/13 0300 AC Acetaminophen PO Tiotropium [place] 1 PUF DAILY 02/13 1000 AC 02/14 INH 0858 Review of Systems Review of Systems: He has not had any gout attacks in quite some time. He has had no other joint pains. There is no history of any GI problems either such as melena or hematemesis there is been no rash either although he does have a history of psoriasis Past History Travel History Traveled to [place] past 21 day No Medical History Neurological: NONE EENT: cataracts Cardiovascular: AFIB, CHF, hypertension, hyperlipidemia Respiratory: COPD (2L O2& steroid dependent), O2 DEP 2L Gastrointestinal: GERD, pancreatitis Hepatic: hepatic cysts Renal: chronic kidney disease Musculoskeletal: gout Psychiatric: NONE Endocrine: diabetes (insulin-requiring) Blood Disorders: NONE Cancer(s): NONE STENOCAPTIONER/Reproductive: NONE Surgical History Surgical History: appendectomy, cataract removal, knee replacement (bilateral) Family History Relations & Conditions If Any: BROTHER, ; Cause: Brain cancer. Uncle ([place] at age 40). FH: myocardial infarction SISTER FH: lung cancer FATHER Psychosocial History Who Do You Live With? spouse, 2 daughters, one son, granddaughter and her Services at Home: Oxygen Primary Language: Urdu Smoking Status: Current Some Day Smoker Functional Ability ADLs Independent: dressing, eating, toileting, bathing. Ambulation: independent IADLs Independent: shopping, housework, finances, food prep, telephone, transportation , medication admin. Exam & Diagnostic Data Vital Signs and I&O Vital Signs Date Time Temp Pulse Resp B/P B/P Pulse O2 O2 Flow FiO2 Mean Ox Delivery Rate 02/14 1700 76 118/62 02/14 1600 95 Nasal 2.0L Cannula 02/14 1432 98.6 74 20 116/60 95 Nasal 2.0L Cannula 02/14 0859 63 114/52 02/14 0839 96 Nasal 2.0L Cannula 02/14 0805 98.3 63 20 114/52 94 Room Air 02/14 0800 94 Nasal 2.0L Cannula 02/14 0000 Nasal 2.0L Cannula 02/13 2248 98.2 74 20 128/66 96 Room Air Intake & Output 02/14 1600 02/14 0800 02/14 0000 Intake Total 800 490 730 Output Total Balance 800 490 730 Intake, IV 10 250 Intake, Oral 800 480 480 Number 1 1 Bowel Movements Physical Exam: On examination he is a well-developed well nourished alert gentleman. He uses chronic nasal oxygen but is not any respiratory distress examination of his hands reveals some discoloration he also has Dupuytren's contractures of both fourth flexor tendons of his hands his right knee has a scar from arthroplasty. There is a soft swelling around the joint but it is absolutely improved at least 50% since his last visit to my office 2 weeks ago. He is able to fully flex the knee. Left knee has good range of motion without any tenderness or swelling. Assessment/Plan Assessment: This is a resolving hemarthrosis of the right knee it is definitely improved since his last visit 2 weeks ago to my office Recommendations: There is no reason to tap the knee at the present time. He will remain off Eliquis and see me in my office in one month. Consult Acknowledgment - Thank you for your consult request.
[2017-02-14 23:50] VITALS: BP 113/60
--- NOTE | 2017-02-15 06:58 | PN- Housestaff ---
Subjective Follow-up For: COPD Pneumonia CKD Subjective: Patient is stable, vitals WNL. Denies any fever, chills, SOB, Chest pain or overnight events. Review of Systems Constitutional: Reports: no symptoms. EENTM: Reports: no symptoms. Cardiovascular: Reports: no symptoms. Respiratory: Reports: cough. Gastrointestinal: Reports: no symptoms. Genitourinary: Reports: no symptoms. Musculoskeletal: Reports: no symptoms. Skin: Reports: no symptoms. Neurological/Psychological: Reports: no symptoms. Hematologic/Endocrine: Reports: no symptoms. Immunologic/Allergic: Reports: no symptoms. Objective Last 24 Hrs of Vital Signs/I&O Vital Signs Date Time Temp Pulse Resp B/P B/P Pulse O2 O2 Flow FiO2 Mean Ox Delivery Rate 02/15 1543 94 Nasal 2.0L Cannula 02/15 1519 98.5 65 20 126/64 97 02/15 0912 97 Nasal 2.0L Cannula 02/15 0852 66 126/68 02/15 0800 93 Nasal 2.0L Cannula 02/15 0743 97.8 67 20 128/66 98 Nasal 2.0L Cannula 02/15 0000 Nasal 2.0L Cannula 02/14 2350 98.3 67 20 113/60 93 Nasal 2.0L Cannula 02/14 2129 98 Nasal 2.0L Cannula Intake & Output 02/15 1600 02/15 0800 02/15 0000 Intake Total 1000 250 600 Output Total Balance 1000 250 600 Intake, IV 250 Intake, Oral 1000 600 Physical Exam General Appearance: Alert, Oriented X3, Cooperative Skin: No Rashes, No Breakdown, [place] scaly lesion on back. Sepsis Skin Exam (color): Normal for Ethnicity HEENT: Atraumatic, PERRLA, EOMI Neck: Supple, No JVD, No thryomegaly Lymphatic: Axillary nl Cardiovascular: Normal S1, Normal S2 Lungs: Clear to Auscultation Abdomen: Normal Bowel Sounds, Soft, No Tenderness Neurological: Normal Gait, Normal Speech, Strength at 5/5 X4 Ext, Normal Tone, Sensation Intact Current Medications: Current Medications Sig/Luis Start time Last Medication Dose Route Stop Time Status Admin Acetaminophen 650 MG Q6P PRN 02/13 0300 DCD PO Acetaminophen 1,000 MG Q6P PRN 02/13 0300 DCD IV Albuterol Sulfate 3 ML TID 02/13 1000 DCD 02/15 INH 1341 Albuterol Sulfate 3 ML Q4P PRN 02/12 2230 DCD INH Albuterol Sulfate 2 PUF Q4-6 PRN PRN 02/12 2230 DCD INH Allopurinol 150 MG DAILY 02/15 1000 DCD 02/15 PO 0852 Amiodarone HCl 200 MG DAILY 02/13 1319 DCD 02/15 PO 0852 Amoxicillin/ 875 MG Q12 02/15 1000 DCD 02/15 Clavulanate Potassium PO 1019 Atorvastatin Calcium 40 MG QPM 02/13 2200 DCD 02/14 PO 2200 Azithromycin 500 MG 2200 02/13 2200 DC 02/14 Sodium Chloride 250 ML IV 2200 Budesonide/ 2 PUF BID 02/12 2221 DCD 02/15 Formoterol Fumarate INH 0851 Ceftriaxone Sodium 1,000 MG 2100 02/13 2100 DC 02/14 IV 2200 Digoxin 0.125 MG 1700 02/13 1700 DCD 02/14 PO 1700 Diltiazem HCl 120 MG DAILY 02/13 1000 DCD 02/15 PO 0852 Methylprednisolone 40 MG Q24 02/14 1000 DC 02/14 IV 0859 Oxycodone/ 1 TAB Q6P PRN 02/13 0300 DCD Acetaminophen PO Prednisone 40 MG DAILY 02/15 1000 DCD 02/15 PO 02/16 1001 0852 Tiotropium [place] 1 PUF DAILY 02/13 1000 DCD 02/15 INH 0851 Last 24 Hrs of Lab/Chacorta Results Last 24 Hrs of Labs/Mics: Laboratory Tests 02/15/17 07: Anion Gap 8, Estimated GFR 60, BUN/Creatinine Ratio 32.5 H, CBC w Diff NO MAN DIFF REQ, RBC 3.10 L, MCV 94.8 H, MCH 31.0, RDW 15.7 H, MPV 8.1, Gran % 93.3 H, Lymphocytes % 3.3 L, Monocytes % 3.4, Eosinophils % 0, Basophils % 0 L, Absolute Granulocytes 13.2 H, Absolute Lymphocytes 0.5 L, Absolute Monocytes 0.5, Absolute Eosinophils 0, Absolute Basophils 0, PUBS MCHC 32.7 L Microbiology 02/15 06 LOWER RESP: Respiratory Culture - COLB 02/15 600 LOWER RESP: Gram Stain - COLB Assessment/Plan Assessment: pt is a 71 year old male with a history of COPD ,Chronic respiratory failure, Paroxysmal AFIB e, CKD, CHF, HTN, DM, gout and GERD. He presented ED complaining of a 3 day history of fatigue, and SOB. He endorses hypersomnolance, nausea without vomiting, fever, chills, night sweats, chronic dry cough, and diziness on standing. Within the last 3 weeks he has had 2 artherocenteses on his L knee and blood was removed. Today he complains of swelling and tenderness of the R knee. Labs: WBC 11.5. H/H 10.9/33.1. Plts 233. Na 136, K 4.3, BUN 39, Cr 1.6. #Acute COPD exacerbation CT chest showed opacificaiton which could possibly be atelectasis or pneumonia and triplex scan did not show evidence of a DVT. Do WBC was elevated (11.5). The pt has over a 50 year hx of smoking, and smokes everyday. - Patient reports improvement in breathing and there is no wheezing on auscultation, IV Solumedrol transitioned to PO prednisone 40mg today. Will do quick taper. - Antibiotics changed to Moxifloxacin per . - TRC evaluation - IS for possible atelectasis #Rule out DVT Patient did complain of some lower extremity pain at the time of admission A Doppler done at the time of admission at the emergency department was negative for any DVT. Continue to encourage ambulation. # History of knee effusions - Continue to hold eloquis due to previous bloody taps on knee. Will follow up with as outpatient. # History of AFIB - Will monitor digoxin levels - Continue home meds per . # Nicotine dependence - Floor Winder on smoking cessation - nicotine patch 14mg prn # History of CHF - c/w Cardizem 120 mg - Heart healthy diet # DVT prophylaxis - ALPs # Patient is DNR/DNI Problem List: 1. COPD exacerbation 2. Pneumonia 3. Gout 4. Chronic respiratory failure Pain Ratin Pain Location: None Pain Goal: Remain pain free Pain Plan: None Tomorrow's Labs & Rationales: None(Discharge)
[2017-02-15 07:43] VITALS: BP 128/66
--- NOTE | 2017-02-15 07:52 | Patient Discharge Instructions ---
Discharge Instructions General Discharge Information You were seen/treated for: Community-acquired pneumonia COPD exacerbation Watch for these problems: Worsening shortness of breath Fevers, chills Persistent productive cough Special Instructions: Please take all medications as directed. Please follow-up with your PCP within one week after discharge. Please follow-up with her household appliance mechanic within 1 week after discharge. Please follow-up with your shipping and receiving assistant within 1-2 weeks after discharge. Your blood thinner has been stopped due to potential for bleeding into the joint. Please follow-up with your utility aircrewman within 1 week after discharge. Diet Recommended Diet: Heart Healthy Activity Full Activity/No Limits: Yes Activity Self Limited: Yes Acute Coronary Syndrome Inclusion Criteria At DC or during hospital stay patient has or had the following: ACS DIAGNOSIS No Discharge Core Measures Meds if any: Prescribed or Continued at Discharge Meds if any: NOT Prescribed or Continued at Discharge Congestive Heart Failure Inclusion Criteria At DC or during hospital stay patient has or had the following: CHF DIAGNOSIS No Discharge Core Measures Meds if any: Prescribed or Continued at Discharge Meds if any: NOT Prescribed or Continued at Discharge Cerebrovascular accident Inclusion Criteria At DC or during hospital stay patient has or had the following: CVA/TIA Diagnosis No Discharge Core Measures Meds if any: Prescribed or Continued at Discharge Meds if any: NOT Prescribed or Continued at Discharge Venous thromboembolism Inclusion Criteria VTE Diagnosis No VTE Type NONE VTE Confirmed by (Test) NONE Discharge Core Measures - Per Current guidelines, there needs to be overlap - treatment for the first 5 days of Warfarin therapy. - If discharged on Warfarin prior to 5 days of - overlap therapy, the patient will need to be - assessed for post discharge needs including - *Post discharge parental anticoagulation - *Warfarin and/or parental anticoagulation education - *Follow up date to check INR post discharge At least 5 days overlap therapy as Inpatient No Meds if any: Prescribed or Continued at Discharge Note: Overlap Therapy is Warfarin and Anticoagulant Meds if any: NOT Prescribed or Continued at Discharge
[2017-02-15] MEDS ORDERED: PREDNISONE10 M2 PO ×3 (08:31→15:03)
[2017-02-15 08:35] LABS: ABSOLUTE BASOPHIL COUNT 0 /CUMM (0.0-0.2); ABSOLUTE EOSINOPHIL COUNT 0 /CUMM (0.0-0.7); ABSOLUTE GRANULOCYTE CT 13.2 /CUMM (1.4-6.5); ABSOLUTE LYMPH COUNT 0.5 /CUMM (1.2-3.4); ABSOLUTE MONOCYTE COUNT 0.5 /CUMM (0.10-0.60); BASOPHIL % 0 % (0.0-2.0); EOSINOPHIL % 0 % (0-5); HEMATOCRIT 29.4 % (42-52); MEAN CORPUSCULAR HGB CONC 32.7 G/DL (33.0-37.0); MEAN CORPUSCULAR VOLUME 94.8 FL (80.0-94.0); MEAN PLATELET VOLUME 8.1 FL (7.4-10.4); PLATELET COUNT 205 /CUMM (130-400); RBC DISTRIBUTION WIDTH 15.7 % (11.5-14.5); WHITE BLOOD CELL COUNT 14.2 /CUMM (4.8-10.8)
[2017-02-15 09:23] LABS: GRANULOCYTE % 93.3 % (42.2-75.2)
[2017-02-15] MEDS ORDERED: AVELOX400 M1 PO (11:01)
--- NOTE | 2017-02-15 12:28 | Cons- Cardiology ---
General Information and HPI Consulting Request Date of Consult: 02/15/17 Requested By: DESHAWN LEBRON MD Reason for Consult: Paroxysmal atrial fibrillation History of Present Illness: The patient is a 71-year-old male with history of paroxysmal atrial fibrillation , chronic systolic heart failure, chronic kidney disease, and COPD. His most recent episode of atrial patient was in 2014. He was continued on anticoagulation until earlier this month when Eliquis was discontinued because of recurrent hemarthrosis. He is admitted with COPD exacerbation. She is being treated with steroids and antibiotics. No recent cardiac symptoms. No chest pain. No palpitations. No diaphoresis. No nausea or vomiting. No syncope. Allergies/Medications Allergies: Coded Allergies: NO KNOWN ALLERGIES (08/21/15) Home Med List: Albuterol Sulfate (Ventolin Hfa) 90 MCG HFA.AER.AD 2 PUF INH Q4-6 PRN PRN SHORTNESS OF BREATH (Reported) Albuterol Sulfate 2.5 MG/3 ML (0.083 %) VIAL.NEB 1 Vial INH/KIMANI Q4P PRN SHORTNESS OF BREATH (Reported) Allopurinol 300 MG TABLET 0.5 TAB PO DAILY GOUT (Reported) Amiodarone HCl 200 MG TABLET 1 TAB PO DAILY HEART (Reported) Apixaban (Eliquis) 5 MG TABLET 1 TAB PO BID BLOOD THINNER (Reported) Atorvastatin Calcium (Lipitor) 40 MG TABLET 1 TAB PO QPM CHOLESTEROL ( Reported) Digoxin 125 MCG TABLET 1 TAB PO DAILY HEART (Reported) Diltiazem HCl (Cartia Xt) 120 MG CAP.ER.24H 1 CAP PO DAILY HEART (Reported) Fluticasone/Salmeterol (Advair 250-50 Diskus) 250 MCG-50 MCG/DOSE BLST.W.DEV 1 PUF INH BID COPD (Reported) Lisinopril 10 MG TABLET 1 TAB PO DAILY HIGH BLOOD PRESSURE (Reported) Reason to Stop at ADM: CHAKA Metoprolol Succinate 50 MG TAB.ER.24H 1 TAB PO DAILY HEART (Reported) Pantoprazole Sodium (Protonix) (Unknown Strength) TABLET.DR (Unknown Dose) PO DAILY ACID REFLUX (Reported) Prednisone 10 MG TABLET 1 TAB PO DAILY COPD (Reported) Please start back on this dose after you have completed the taper Prednisone 10 MG TABLET 1 TAB PO AD copd On Take 02/16-02/17 40 MG 02/18-02/20 30 MG 02/21-02/23 20 MG CONTINUE ON YOUR REGULAR PREDNISONE 10MG DAILY AFTER THIS Spironolactone (Aldactone) 25 MG TABLET 1 TAB PO DAILY CHF (Reported) Tiotropium [place] (Spiriva) 18 MCG CAP.W.DEV 1 PUFF INH DAILY COPD (Reported ) Current Medications: Current Medications Sig/Luis Start time Last Medication Dose Route Stop Time Status Admin Acetaminophen 650 MG Q6P PRN 02/13 0300 AC PO Acetaminophen 1,000 MG Q6P PRN 02/13 0300 AC IV Albuterol Sulfate 3 ML TID 02/13 1000 AC 02/15 INH 0836 Albuterol Sulfate 3 ML Q4P PRN 02/12 2230 AC INH Albuterol Sulfate 2 PUF Q4-6 PRN PRN 02/12 2230 AC INH Allopurinol 150 MG DAILY 02/15 1000 AC 02/15 PO 0852 Allopurinol 150 MG DAILY 02/13 1000 DC 02/14 PO 0859 Amiodarone HCl 200 MG DAILY 02/13 1319 AC 02/15 PO 0852 Amoxicillin/ 875 MG Q12 02/15 1000 AC 02/15 Clavulanate Potassium PO 1019 Atorvastatin Calcium 40 MG QPM 02/13 2200 AC 02/14 PO 2200 Azithromycin 500 MG 2200 02/13 2200 DC 02/14 Sodium Chloride 250 ML IV 2200 Budesonide/ 2 PUF BID 02/12 2221 AC 02/15 Formoterol Fumarate INH 0851 Ceftriaxone Sodium 1,000 MG 2100 02/13 2100 DC 02/14 IV 2200 Digoxin 0.125 MG 1700 02/13 1700 AC 02/14 PO 1700 Diltiazem HCl 120 MG DAILY 02/13 1000 AC 02/15 PO 0852 Methylprednisolone 40 MG Q24 02/14 1000 DC 02/14 IV 0859 Oxycodone/ 1 TAB Q6P PRN 02/13 0300 AC Acetaminophen PO Prednisone 40 MG DAILY 02/15 1000 AC 02/15 PO 02/16 1001 0852 Tiotropium [place] 1 PUF DAILY 02/13 1000 AC 02/15 INH 0851 Review of Systems Review of Systems: No rash. No tremor. No melena. All other systems were reviewed, and were noted to be negative. Past History Travel History Traveled to [place] past 21 day No Medical History Neurological: NONE EENT: cataracts Cardiovascular: AFIB, CHF, hypertension, hyperlipidemia Respiratory: COPD (2L O2& steroid dependent), O2 DEP 2L Gastrointestinal: GERD, pancreatitis Hepatic: hepatic cysts Renal: chronic kidney disease Musculoskeletal: gout Psychiatric: NONE Endocrine: diabetes (insulin-requiring) Blood Disorders: NONE Cancer(s): NONE TRAINING MANAGER/Reproductive: NONE Surgical History Surgical History: appendectomy, cataract removal, knee replacement (bilateral) Family History Relations & Conditions If Any: BROTHER, ; Cause: Brain cancer. Uncle ([place] at age 40). FH: myocardial infarction SISTER FH: lung cancer FATHER Psychosocial History Who Do You Live With? spouse, 2 daughters, one son, granddaughter and her Services at Home: Oxygen Primary Language: [place]ijani Smoking Status: Current Some Day Smoker Functional Ability ADLs Independent: dressing, eating, toileting, bathing. Ambulation: independent IADLs Independent: shopping, housework, finances, food prep, telephone, transportation , medication admin. ECHO Results (as available) Report: CONCLUSIONS Mild left ventricular dilatation. Moderately reduced left ventricular systolic function. Left ventricular ejection fraction is estimated at 35-40 %. Global hypokinesis. Trace mitral regurgitation. Trace tricuspid regurgitation. Trace pulmonic regurgitation. Exam & Diagnostic Data Vital Signs and I&O Vital Signs Date Time Temp Pulse Resp B/P B/P Pulse O2 O2 Flow FiO2 Mean Ox Delivery Rate 02/15 0912 97 Nasal 2.0L Cannula 02/15 0852 66 126/68 02/15 0800 93 Nasal 2.0L Cannula 02/15 0743 97.8 67 20 128/66 98 Nasal 2.0L Cannula 02/15 0000 Nasal 2.0L Cannula 02/14 2350 98.3 67 20 113/60 93 Nasal 2.0L Cannula 02/14 2129 98 Nasal 2.0L Cannula 02/14 1700 76 118/62 02/14 1600 95 Nasal 2.0L Cannula 02/14 1432 98.6 74 20 116/60 95 Nasal 2.0L Cannula Intake & Output 02/15 1600 02/15 0800 02/15 0000 02/14 1600 02/14 0800 02/14 0000 Intake Total 250 600 800 490 730 Output Total Balance 250 600 800 490 730 Intake, IV 250 10 250 Intake, Oral 600 800 480 480 Number 1 1 Bowel Movements Physical Exam: Gen: The patient is in no acute distress HEENT: Normal nose, ears, and oropharynx. Pupils equal bilaterally. Conjunctiva normal. Neck: Supple with no JVD, no masses, and no thyromegaly Lungs: Bilateral wheezing with normal respiratory effort Heart: RRR, S1, S2, 2/6 systolic murmur. No peripheral edema, 2+ pulses in the lower extremities bilaterally Abdomen: Soft, nontender, no masses. No hepatomegaly. No splenomegaly Extremities: No clubbing or cyanosis. Normal muscle strength in the upper and lower extremities Skin: Normal skin turgor with no skin ulcers or lesions noted. Neuro: Cranial nerves intact. Sensation intact Psych: Alert and oriented 3 with appropriate affect Labs/Chacorta Results: Laboratory Tests 02/15 02/14 0722 0709 Chemistry Sodium (137 - 145 mmol/L) 137 137 Potassium (3.5 - 5.1 mmol/L) 4.7 4.6 Chloride (98 - 107 mmol/L) 104 104 Carbon Dioxide (22 - 30 mmol/L) 25 25 Anion Gap (5 - 16) 8 7 BUN (9 - 20 mg/dL) 39 H 37 H Creatinine (0.7 - 1.2 mg/dL) 1.2 1.4 H Estimated GFR (>60 ml/min) 60 50 L BUN/Creatinine Ratio (7 - 25 %) 32.5 H 26.4 H Hematology CBC w Diff NO MAN DIFF REQ NO MAN DIFF REQ WBC (4.8 - 10.8 /CUMM) 14.2 H 15.0 H RBC (4.70 - 6.10 /CUMM) 3.10 L 2.97 L Hgb (14.0 - 18.0 G/DL) 9.6 L 9.3 L Hct (42 - 52 %) 29.4 L 28.1 L MCV (80.0 - 94.0 FL) 94.8 H 94.6 H MCH (27.0 - 31.0 PG) 31.0 31.2 H RDW (11.5 - 14.5 %) 15.7 H 15.3 H Plt Count (130 - 400 /CUMM) 205 215 MPV (7.4 - 10.4 FL) 8.1 8.2 Gran % (42.2 - 75.2 %) 93.3 H 96.1 H Lymphocytes % (20.5 - 51.1 %) 3.3 L 1.8 L Monocytes % (1.7 - 9.3 %) 3.4 2.1 Eosinophils % (0 - 5 %) 0 0 Basophils % (0.0 - 2.0 %) 0 L 0 L Absolute Granulocytes (1.4 - 6.5 /CUMM) 13.2 H 14.4 H Absolute Lymphocytes (1.2 - 3.4 /CUMM) 0.5 L 0.3 L Absolute Monocytes (0.10 - 0.60 /CUMM) 0.5 0.3 Absolute Eosinophils (0.0 - 0.7 /CUMM) 0 0 Absolute Basophils (0.0 - 0.2 /CUMM) 0 0 PUBS MCHC (33.0 - 37.0 G/DL) 32.7 L 33.0 Diagnostic Data EKG Results EKG tracing is independently reviewed, and reveals sinus tachycardia at [address]-T abnormality CXR Results No acute abnormalities Other Results CT scan of the chest: Nonspecific patchy groundglass opacification within the lingula and posterior basal segment of the left lower lobe. This is nonspecific, but could correspond to atelectasis or inflammatory or infectious processes. Assessment/Plan Assessment/Plan Assessment: 1. Paroxysmal atrial fibrillation, with no documented recurrence since 2014 2. Off anticoagulation because of recurrent hemarthrosis 3. Acute COPD exacerbation 4. Chronic systolic heart failure, LVEF 40% Plan: * Continue current cardiac medications. * Off anticoagulation because of recurrent hemarthrosis * Low-dose aspirin to be started in the near future if no further hemarthrosis, and cleared by Dr. Izaguirre Consult Acknowledgment - Thank you for your consult request.
--- NOTE | 2017-02-15 13:40 | PN- Pulmonary ---
Subjective HPI/Critical Care Issues: Doing well afebrile coughing less back to baseline Objective Current Medications: Current Medications Sig/Luis Start time Last Medication Dose Route Stop Time Status Admin Acetaminophen 650 MG Q6P PRN 02/13 0300 AC PO Acetaminophen 1,000 MG Q6P PRN 02/13 0300 AC IV Albuterol Sulfate 3 ML TID 02/13 1000 AC 02/15 INH 0836 Albuterol Sulfate 3 ML Q4P PRN 02/12 2230 AC INH Albuterol Sulfate 2 PUF Q4-6 PRN PRN 02/12 2230 AC INH Allopurinol 150 MG DAILY 02/15 1000 AC 02/15 PO 0852 Allopurinol 150 MG DAILY 02/13 1000 DC 02/14 PO 0859 Amiodarone HCl 200 MG DAILY 02/13 1319 AC 02/15 PO 0852 Amoxicillin/ 875 MG Q12 02/15 1000 AC 02/15 Clavulanate Potassium PO 1019 Atorvastatin Calcium 40 MG QPM 02/13 2200 AC 02/14 PO 2200 Azithromycin 500 MG 2200 02/13 2200 DC 02/14 Sodium Chloride 250 ML IV 2200 Budesonide/ 2 PUF BID 02/12 2221 AC 02/15 Formoterol Fumarate INH 0851 Ceftriaxone Sodium 1,000 MG 2100 02/13 2100 DC 02/14 IV 2200 Digoxin 0.125 MG 1700 02/13 1700 AC 02/14 PO 1700 Diltiazem HCl 120 MG DAILY 02/13 1000 AC 02/15 PO 0852 Methylprednisolone 40 MG Q24 02/14 1000 DC 02/14 IV 0859 Oxycodone/ 1 TAB Q6P PRN 02/13 0300 AC Acetaminophen PO Prednisone 40 MG DAILY 02/15 1000 AC 02/15 PO 02/16 1001 0852 Tiotropium [place] 1 PUF DAILY 02/13 1000 AC 02/15 INH 0851 Vital Signs & I&O Last 24 Hrs of Vitals and I&O: Vital Signs Date Time Temp Pulse Resp B/P B/P Pulse O2 O2 Flow FiO2 Mean Ox Delivery Rate 02/15 0912 97 Nasal 2.0L Cannula 02/15 0852 66 126/68 02/15 0800 93 Nasal 2.0L Cannula 02/15 0743 97.8 67 20 128/66 98 Nasal 2.0L Cannula 02/15 0000 Nasal 2.0L Cannula 02/14 2350 98.3 67 20 113/60 93 Nasal 2.0L Cannula 02/14 2129 98 Nasal 2.0L Cannula 02/14 1700 76 118/62 02/14 1600 95 Nasal 2.0L Cannula 02/14 1432 98.6 74 20 116/60 95 Nasal 2.0L Cannula Intake & Output 02/15 1600 02/15 0800 02/15 0000 Intake Total 250 600 Output Total Balance 250 600 Intake, IV 250 Intake, Oral 600 Impression/Plan Impression/Plan Impression/Plan: IMPRESSION ACOPDE Prob pna Hemoarthrosis end stage copd Other issues as noted above REC Change to po prednisone and 4 days of moxi Ok to dc Follow up with Estuardo Schneider and Tiara will follow
--- NOTE | 2017-02-15 13:54 | RADIOLOGY REPORT ---
EXAMINATION: XR CHEST CLINICAL INFORMATION: Acute dyspnea. Follow-up for possible pneumonia. COMPARISON: Several prior chest x-rays, most recent of which is dated 02/12/2017. T scan of the chest dated 02/12/2017. TECHNIQUE: 2 views of the chest were obtained. FINDINGS: The cardiomediastinal silhouette is within normal limits in size. Prominence of the left pulmonary arterial region is again noted, unchanged, likely related to slight patient rotation given convex right scoliosis. Recent CT scan had shown no focal pulmonary arterial abnormality. Lungs are hyperinflated with flattening of the hemidiaphragms, consistent with obstructive lung disease. Scattered linear atelectatic changes are seen in both lung bases. No dense consolidation, effusion or pneumothorax is seen. Osteopenia with multilevel mild vertebral endplate spurring and S-shaped thoracolumbar scoliosis are noted. Old healed fracture deformity of the lateral right eighth rib is seen. IMPRESSION: Obstructive lung disease with mild bibasilar subsegmental atelectasis. Biplane film, no evolving pneumonia is seen.
--- NOTE | 2017-02-15 14:43 | Discharge Summary ---
See Addendum Visit Information Visit Dates Admission Date: 02/12/17 Discharge Date: 02/15/17 Hospital Course Course Attending Physician: VI MENON,DESHAWN Primary Care Physician: VI MENON,DESHAWN Hospital Course: Mr. Welch is a 71-year-old gentleman with a PMH of paroxysmal A. fib on Eliquis, HFrEF (echocardiogram 03/2015 with LVEF 35-40% global hypokinesis), COPD on 2L O2, tobacco dependence at 50+ years, HTN, DM, gout, GERD who presented with complaints of 3 day duration lethargy, fatigue, productive cough. From a rheumatological standpoint he has been followed by Dr. Izaguirre for gout ( allopurinol 150 mg daily), last uric acid was 5.6 one year ago, hospitalized from January 05Jun for swollen right knee, underwent a tap (+ uric acid crystals), followed up with Dr. Izaguirre on January 17 with a repeat tap the same knee obtaining 30 mL dark blood, a third tab a week later yielding 45 mL dark blood after which Eliquis was discontinued. VS on admission: BP 116/63, HR 104, RR 24, SPO2 94% on 3 LNC, T1 1 0.7 PE on admission: No acute distress. Eczematous rash on his back. Moist mucous membranes. RRR, normal S1/S2. Lungs: Expiratory wheeze present bilaterally. Normal bowel sounds with no tenderness to palpation. No edema in bilateral lower extremities. Pertinent labs on admission: WBC 11.5, H&H 10.9/33.1, platelets 233K, sodium 136 , potassium 4.3, BUN/Cr 39/1.6 Duplex ultrasound bilateral lower extremities: Normal triplex scan without evidence of deep venous thrombosis involving the lower extremities. Chest CT without contrast: Nonspecific patchy groundglass opacification within the lingula and posterior basal segment of the left lower lobe. This is nonspecific, but could correspond to atelectasis or inflammatory or infectious processes. The patient was admitted to general medicine floor and managed for following problems: 1. Acute hypoxic respiratory failure secondary to COPD exacerbation 2. History of atrial fibrillation not on anticoagulation 3. History of HFrEF (echocardiogram 03/2015 with LVEF 35-40% global hypokinesis) 4. History of hemarthrosis 5. Tobacco dependence Hospital course: 1. Acute hypoxic rescue failure secondary to COPD exacerbation * Paste on physical presentation and radiographic findings, the patient was started on IV Solu-Medrol and transitioned to prednisone taper * From a antimicrobial standpoint he was started on ceftriaxone and azithromycin which he received for 2 days, transition to Floxin to complete a total course of 7 days therapy 2. History of atrial fibrillation not on anticoagulation * Stable at this time. Continue to hold Eliquis * Continued on amiodarone 200 mg daily 3. History of HFrEF (echocardiogram 03/2015 with LVEF 35-40% global hypokinesis) * Throughout the hospital course he remained stable with no requirements for repeat echocardiogram. * Digoxin level therapeutic at 1.0. Continued on current dose of 0.125 mg daily * Plan to follow-up with his manager subway Dr. Bashir in the future to assess restarting antiplatelet therapy with aspirin 4. History of hemarthrosis * No evidence of increasing swelling of the right knee during the hospital course. Continue to hold Eliquis and follow-up with Dr. Izaguirre within 1 month after discharge. 5. Tobacco dependence * Nicotine patch 14 mg daily. Smoking cessation Allergies: Coded Allergies: NO KNOWN ALLERGIES (08/21/15) Disposition Summary Disposition Principal Diagnosis: Acute hypoxic respiratory failure secondary to COPD exacerbation Additional Diagnosis: History of atrial fibrillation not on anticoagulation History of HFrEF (echocardiogram 03/2015 with LVEF 35-40% global hypokinesis) History of hemarthrosis Tobacco dependence Discharge Disposition: home or self care Discharge Instructions General Discharge Information Code Status: Do Not Resucitate/Intubat Patient's Diet: Heart healthy Patient's Activity: As tolerated Follow-Up Instructions/Appts: Patient to follow-up with PCP within 1-2 weeks after discharge. Patient to follow-up with manager subway within 4 weeks after discharge for recommendations on restarting Eliquis and aspirin. Patient follow-up with his clinical material handler within 1 week after discharge Medications at Discharge Discharge Medications: Stop taking the following medications: Apixaban (Eliquis) 5 MG TABLET ORAL TWICE DAILY Atorvastatin Calcium (Lipitor) 40 MG TABLET ORAL Every night Continue taking these medications: Albuterol Sulfate (Ventolin Hfa) 90 MCG HFA.AER.AD 2 Puff Inhale through mouth EVERY 4-6 HOURS NEEDED as needed for SHORTNESS OF BREATH Comments: NOT GIVEN IN HOSPITAL Fluticasone/Salmeterol (Advair 250-50 Diskus) 250 MCG-50 MCG/DOSE BLST.W.DEV 1 Puff Inhale through mouth TWICE DAILY Comments: Last Taken: 02/15/17 Time: 9:00 AM (SYMBICORT GIVEN) Albuterol Sulfate (Albuterol Sulfate) 2.5 MG/3 ML (0.083 %) VIAL.NEB 1 Vial Inhale Solution EVERY 4 HOURS NEEDED as needed for SHORTNESS OF BREATH Comments: Last Taken: 02/15/17 Time: 8:30 AM Allopurinol (Allopurinol) 300 MG TABLET 0.5 Tablet ORAL DAILY Comments: Last Taken: 02/15/17 Time: 9:00 AM Digoxin (Digoxin) 125 MCG TABLET 1 Tablet ORAL DAILY Comments: Last Taken: 02/14/17 Time: 5:00 PM Amiodarone HCl (Amiodarone HCl) 200 MG TABLET 1 Tablet ORAL DAILY Comments: Last Taken: 02/15/17 Time: 9:00 AM Pantoprazole Sodium (Protonix) 20 MG TABLET.DR 2 Tablet ORAL DAILY Qty = 30 Comments: NOT GIVEN IN HOSPITAL Lisinopril (Lisinopril) 10 MG TABLET 1 Tablet ORAL DAILY Comments: NOT GIVEN IN HOSPTIAL Tiotropium [place] (Spiriva) 18 MCG CAP.W.DEV 1 PUFF Inhale through mouth DAILY Comments: Last Taken: 02/15/17 Time: 9:00 AM Spironolactone (Aldactone) 25 MG TABLET 1 Tablet ORAL DAILY Qty = 30 Comments: NOT GIVEN IN HOSPTIAL Diltiazem HCl (Cartia Xt) 120 MG CAP.ER.24H 1 Capsule ORAL DAILY Qty = 90 Comments: Last Taken: 02/15/17 Time: 9:00 AM Prednisone (Prednisone) 10 MG TABLET 1 Tablet ORAL DAILY Instructions: Please start back on this dose after you have completed the taper Comments: Last Taken: 02/15/17 Time: 9:00 AM Metoprolol Succinate (Metoprolol Succinate) 50 MG TAB.ER.24H 1 Tablet ORAL DAILY Qty = 90 Comments: NOT GIVEN IN HOSPITAL Start taking the following new medications: Prednisone (Prednisone) 10 MG TABLET 1 Tablet ORAL As Directed Qty = 23 No Refills Instructions: 02/16 - 02/17 40MG 02/18 - 02/20 30MG 02/21 - 02/23 20MG Comments: Last Taken: 02/15/17 Time: 9:00 AM Moxifloxacin HCl (Avelox) 400 MG TABLET 1 Tablet ORAL DAILY Qty = 4 No Refills Comments: NOT GIVEN IN HOSPITAL Copies To: JIMBO MENON,ORLANDO Collazo; BRETT MENON,ALMA Arreguin; VI MENON,DESHAWN
[2017-02-15 15:19] VITALS: BP 126/64
== END 2017-02-15 15:56 | DRG 190 ==
LOC: ERH 17:21 → 2NB 20:17 → ERHI 20:17 → ENRESERV 21:24 → ENTRNSPT 22:11 → 2NB 22:21 → CMPTRNSPT 22:31 → 2NB 02-15 15:56
PROVIDERS: Internal Medicine; Physician Assistant; Student in an Organized Health Care Education/Training Program; ADMIT Internal Medicine
DX: J44.0 Chronic obstructive pulmonary disease with (acute) lower respiratory infection (principal); J18.9 Pneumonia, unspecified organism; J96.21 Acute and chronic respiratory failure with hypoxia; I13.0 Hypertensive heart and chronic kidney disease with heart failure and stage 1 through stage 4 chronic kidney disease, or unspecified chronic kidney disease; E11.22 Type 2 diabetes mellitus with diabetic chronic kidney disease; Z99.81 Dependence on supplemental oxygen; I50.22 Chronic systolic (congestive) heart failure; M25.061 Hemarthrosis, right knee; I48.0 Paroxysmal atrial fibrillation; J44.1 Chronic obstructive pulmonary disease with (acute) exacerbation; Z79.4 Long term (current) use of insulin; N18.9 Chronic kidney disease, unspecified; M10.9 Gout, unspecified; K21.9 Gastro-esophageal reflux disease without esophagitis; F17.210 Nicotine dependence, cigarettes, uncomplicated; M25.462 Effusion, left knee; Z66 Do not resuscitate; L40.9 Psoriasis, unspecified
CPT/HCPCS: 2NBSP; 36415; 82436; 87040; 87070; 87449; 87450; 93005; 93010; 93970; 96374; 96375; 97161-GP; J0131; J0456; J0696; J2920; J2930; J3490; J7040

== ENCOUNTER 2017-08-20 15:29 | Emergency (ER) | payer OTHER ==
[~2017-08-20] VITALS: Ht 190.5 cm; Wt 79.8 kg
[~2017-08-20 15:29] MED LIST changes: +ASPIRIN EC81 M1 PO; +AVELOX400 M1 PO; +ELIQUIS2.5 M1 PO; +NYSTATIN15 G1 TOP; +OXACILLIN SODIUM2 G1 IV; +PROAIR HFA8.5 GM INH; +RIFADIN300 MG PO; +VITAMIN D1000 UNIT PO
--- NOTE | 2017-08-20 15:48 | ED GENERAL ADULT ---
History of Present Illness General Chief Complaint: General Adult Stated Complaint: R/O SEPSIS Source: patient, old records Exam Limitations: no limitations Vital Signs & Intake/Output Vital Signs & Intake/Output Vital Signs Date Time Temp Pulse Resp B/P B/P Pulse O2 O2 Flow FiO2 Mean Ox Delivery Rate 08/20 2043 98.0 87 20 116/60 98 Nasal Cannula 08/20 1957 97.0 80 18 134/80 97 Room Air 08/20 1954 Room Air 08/20 1747 96.7 69 20 110/64 97 Nasal 2.0L Cannula 08/20 1537 98 Nasal 2.0L Cannula 08/20 1537 100.4 74 18 124/60 96 Nasal 2.0L Cannula ED Intake and Output 08/21 0000 08/20 1200 Intake Total 0 Output Total Balance 0 Intake, Oral 0 Patient 176 lb Weight Weight Reported by Patient Measurement Method Allergies Coded Allergies: NO KNOWN ALLERGIES (08/21/15) Reconcile Medications Albuterol Sulfate (Proair Hfa) 90 MCG HFA.AER.AD 2 PUF INH Q4-6 PRN PRN Shortness of breath (Reported) Albuterol Sulfate 2.5 MG/3 ML (0.083 %) VIAL.NEB 1 Vial INH/KIMANI Q4P PRN Shortness of breath (Reported) Allopurinol 300 MG TABLET 0.5 TAB PO DAILY GOUT (Reported) Amiodarone (Cordarone) 200 MG TABLET 1 TAB PO DAILY HEART (Reported) Apixaban (Eliquis) 2.5 MG TABLET 1 TAB PO BID Blood thinner Please complete total 6 weeks of Blood thinner.. Atorvastatin Calcium 40 MG TABLET 1 TAB PO DAILY cholesterol (Reported) Cholecalciferol (Vitamin D3) (Vitamin D) 1,000 UNIT TABLET 1 TAB PO DAILY OSTEOPOROSIS Digoxin 125 MCG TABLET 1 TAB PO DAILY HEART (Reported) Fluticasone/Salmeterol (Advair 250-50 Diskus) 250 MCG-50 MCG/DOSE BLST.W.DEV 1 PUF INH BID Shotness of breath (Reported) Lisinopril 10 MG TABLET 1 TAB PO DAILY HIGH BLOOD PRESSURE (Reported) Metoprolol Succinate 50 MG TAB.ER.24H 1 TAB PO DAILY HEART (Reported) Nystatin 100,000 UNIT/GRAM CREAM..G. 1 JO TOP TIDPRN PRN RASH Oxacillin Sodium 2 GRAM VIAL 2 GM IV Q4 Blood infection Please continue iv antibiotics for total of 6 weeks. Pantoprazole Sodium (Protonix) 20 MG TABLET. 2 TAB PO DAILY ACID REFLUX ( Reported) Prednisone 10 MG TABLET 1 TAB PO DAILY COPD (Reported) Rifampin (Rifadin) 300 MG CAPSULE 1 CAP PO BID Septic arthritis Please follow up infectious disease Dr. Lui for further antibiotic course. His contact # [phone] Spironolactone (Aldactone) 25 MG TABLET 1 TAB PO DAILY CHF (Reported) Tiotropium Unity (Spiriva) 18 MCG CAP.W.DEV 1 CAP INH DAILY Shortness of breath (Reported) Triage Note: PT BIBA FROM [facility] FOR INCREASED TEMP AND LETHARGY. PT STATES HE HAD KNEE REPLACEMENT YEARS AGO BUT IN JUNE THEY HAD TO GO IN AND CLEAN OUT THE KNEE BECAUSE HE WAS SEPTIC. PT STATES HE HAS BEEN HAVING FEVERS ON AND OFF ALL DAY TODAY. RIGHT KNEE WARM NO REDNESS NOTED. Triage Nurses Notes Reviewed? yes Onset: Abrupt Duration: week(s): (INTERMITTENTLY FOR 1-2 MONTHS), continues in ED, intermittent Timing: multiple episodes today Injury Environment: [facility] Severity: mild, moderate Severity Numbers: 4 No Modifying Factors: none HPI: 72-year-old male past medical history of atrial fibrillation, CHF, COPD, chronic kidney disease, diabetes brought in by ambulance from [facility] for evaluation of a fever. Patient is currently being treated with IV antibiotics for a right knee replacement joint infection. He's been on antibiotics for greater than a month now. Over the past several months he has had intermittent fevers with a MAXIMUM TEMPERATURE of 101. [facility] reports that he had a temperature of 101 today so he was sent in for further evaluation. Patient states that his knee is feeling fine. There is no swelling redness no pain with range of motion. He does report that he has had cough and congestion as well as some nausea and vomiting. The symptoms have been going on for several months. He is able to eat and drink without difficulty. He denies any chest pain shortness of breath diarrhea abdominal pain hemoptysis lower extremity edema. He sees from infectious diseases. PT HAD a washout of the right knee back in June 2017. (Aaron DEL VALLE,Emanuel) Past History Travel History Traveled to [place] past 21 day No Medical History Any Pertinent Medical History? see below for history Neurological: NONE EENT: cataracts Cardiovascular: AFIB, CHF, hypertension, hyperlipidemia Respiratory: COPD (2L O2& steroid dependent), pneumonia, O2 DEP 2L Gastrointestinal: GERD, pancreatitis Hepatic: hepatic cysts Renal: chronic kidney disease Musculoskeletal: gout Psychiatric: NONE Endocrine: diabetes (insulin-requiring) Blood Disorders: NONE Cancer(s): NONE PERSONAL CARE ASSISTANT/Reproductive: NONE Other Medical Hx: Psoriasis History of MRSA: No History of VRE: No History of CDIFF: No Influenza Vaccine: 05/29/17 Tetanus Vaccine: 06/30/14 Surgical History Surgical History: appendectomy, cataract removal, knee replacement (bilateral) Psychosocial History Who do you live with Family Services at Home Oxygen What is your primary language Somali Tobacco Use: Quit >30 days ago ETOH Use: denies use Illicit Drug Use: denies illicit drug use Family History Family History, If Any: BROTHER, ; Cause: Brain cancer. Uncle (SD at age 40). FH: myocardial infarction SISTER FH: lung cancer FATHER Hx Contributory? No (Emanuel Lakhani) Review of Systems Review of Systems Constitutional: Reports: fever, malaise. EENTM: Reports: no symptoms. Respiratory: Reports: see HPI, cough. Cardiovascular: Reports: no symptoms. GI: Reports: see HPI, nausea, vomiting. Genitourinary: Reports: no symptoms. Musculoskeletal: Reports: no symptoms. Skin: Reports: no symptoms. Neurological/Psychological: Reports: no symptoms. Hematologic/Endocrine: Reports: no symptoms. Immunologic/Allergic: Reports: no symptoms. All Other Systems: Reviewed and Negative (Emanuel Lakhani) Physical Exam Physical Exam General Appearance: well developed/nourished, no apparent distress, alert, awake Head: atraumatic, normal appearance Eyes: Bilateral: normal appearance, PERRL, EOMI. Ears, Nose, Throat: normal pharynx, normal ENT inspection, hearing grossly normal Neck: normal inspection, supple, full range of motion Respiratory: chest non-tender, no respiratory distress, wheezing (MILD) Cardiovascular: regular rate/rhythm, normal peripheral pulses Peripheral Pulses: 2+ radial (R), 2+ radial (L) Gastrointestinal: normal bowel sounds, soft, non-tender, no organomegaly Back: normal inspection, normal range of motion, no vertebral tenderness Extremities: normal inspection, normal range of motion, no edema, RIGHT KNEE INCISION IS CLEAN DRY AND INTACT. tHE RIGHT KNEE IS NOT SWOLLEN. tHERE IS NO ERYTHEMA. fULL RANGE OF MOTION OF THE KNEE IS INTACT WITHOUT PAIN. sTRENGTH IS 5 OUT OF 5 IN THE BILATERAL LOWER EXTREMITIES. pATIENT IS ABLE TO WALK AND BEAR WEIGHT. Neurologic/Psych: no motor/sensory deficits, awake, alert, oriented x 3 Skin: intact, normal color, warm/dry Lymphatic: no anterior cervical alvino Core Measures ACS in differential dx? No CVA/TIA Diagnosis: No Sepsis Present: No Sepsis Focused Exam Completed? No (Aaron DEL VALLE,Emanuel) Progress Differential Diagnoses I considered the following diagnoses in my evaluation of the patient: [Septic arthritis, cellulitis, bursitis, pneumonia, UTI, acute abdomen, influenza, viral gastroenteritis, C. difficile, medication side effect] Plan of Care: Orders Procedure Date/time Status Heart Healthy Diet 08/21 B Active RAPID VIRAL INFLUENZA A 08/20 1623 Complete BLOOD CULTURE 08/20 1539 Active URINALYSIS 08/20 1539 Complete TROPONIN LEVEL 08/20 1539 Complete LACTIC ACID 08/20 1539 Complete COMPREHENSIVE METABOLIC PANEL 08/20 1539 Complete CBC WITHOUT DIFFERENTIAL 08/20 1539 Complete EKG 08/20 1539 Active Laboratory Tests 08/20/17 1839: Lactic Acid Cancelled 08/20/17 1832: Urinalysis LIGHT H, Urine Color YEL, Urine Clarity CLEAR, Urine pH 8.0, Ur Specific [place] 1.015, Urine Protein NEG, Urine Ketones NEG, Urine Nitrite NEG, Urine Bilirubin NEG, Urine Urobilinogen 1.0, Ur Leukocyte Esterase TRACE H, Ur Microscopic SEDIMENT EXAMINED, Urine WBC 1-3 H, Ur Epithelial Cells RARE, Urine Bacteria FEW H, Urine Hemoglobin NEG, Urine Glucose NEG 08/20/17 1545: Anion Gap 11, Estimated GFR 46 L, BUN/Creatinine Ratio 10.7, Glucose 91, Lactic Acid 0.7, Calcium 8.4, Total Bilirubin 0.2, AST 35, ALT 43, Alkaline Phosphatase 108, Troponin I < 0.01, Total Protein 5.1 L, Albumin 2.5 L, Globulin 2.6, Albumin/Globulin Ratio 1.0 L, CBC w Diff NO MAN DIFF REQ, RBC 2.93 L, MCV 95.0 H, MCH 30.4, RDW 16.1 H, MPV 7.9, Gran % 78.1 H, Lymphocytes % 6.6 L, Monocytes % 7.3, Eosinophils % 7.7 H, Basophils % 0.3, Absolute Granulocytes 4.9, Absolute Lymphocytes 0.4 L, Absolute Monocytes 0.5, Absolute Eosinophils 0.5, Absolute Basophils 0, PUBS MCHC 32.0 L Microbiology 08/20 1640 BLOOD: Blood Culture - RECD 08/20 1628 NASOPHARYN: Influenza Virus A & B Rapid Smear - COMP 08/20 1616 BLOOD: Blood Culture - RECD Patient seen and evaluated. He had initial rectal temperature of 100.4. He overall feels well currently and denies any symptoms. He has had intermittent nausea vomiting and intermittent fevers for greater than a month now. He is on oxicillin AND RIFAMPIN through a PICC line for treatment of the right knee infection. The knee appears completely fine. There is no erythema swelling or pain. Full range of motion intact. Initial chest x-ray showed a pneumonia however this was not demonstrated on CT scan. He does not have an elevated white blood cell count negative lactic acid. HE IS NOT HYPOXIC. His temperature resolved with Tylenol. Spoke with Dr. Hernandez from infectious diseases who feels like the knee is doing well and does not require any intervention at this time based on the current clinical picture. He also confirms that patient symptoms have been present chronically for several months now. Also spoke with Dr. Lopez who feels the patient does not require admission at this time. Patient will continue his current antibiotics and Tylenol as needed for fevers. Follow up with infectious disease and primary care. Case discussed with Dr. Lo he agrees. Diagnostic Imaging: Viewed by Me: Radiology Read, CT Scan. Discussed w/RAD: Radiology Read, CT Scan. Radiology Impression: PATIENT: RASHAAD YANEZ PRESENT AGE: 72 PATIENT ACCOUNT NO: [id number] : 45 LOCATION: [facility] ORDERING PHYSICIAN: Emanuel DEL VALLE SERVICE DATE: 08/20/17 EXAM TYPE: CAT - CT ABD & PELVIS W/O IV CONTRAS; CT CHEST WO IV CONTRAST EXAMINATION: CT CHEST, ABDOMEN AND PELVIS WITHOUT CONTRAST CLINICAL INFORMATION: Vomiting. Abdominal pain. Cough. Fever. COMPARISON: Same day chest radiograph. TECHNIQUE: Contiguous axial thin section helical images of the chest, abdomen and pelvis were performed without oral or IV contrast. The data set was reformatted in the coronal and sagittal planes and reviewed on an independent workstation. DLP: 514 mGy-cm. FINDINGS: The heart is of normal size. There is a small pericardial effusion. There is neither mediastinal, hilar nor axillary lymphadenopathy. There are no chest wall masses. A right central venous line is in place. The tip terminates near the SVC/right atrial junction. There are small bilateral pleural effusions. There is associated bibasilar atelectasis. There aren't manifestations of mild biapical emphysema. There are no pulmonary nodules. The liver is of normal size and attenuation without concerning focal lesions nor intrahepatic biliary ductal dilation. There is stable subcentimeter low- attenuation lesions within the liver. There is a punctate calcification within the gallbladder lumen. There is no wall thickening or discernible pericholecystic fluid. The spleen, pancreas, adrenal glands are unremarkable. Both kidneys are of normal size and attenuation without hydronephrosis or nephrolithiasis. There is bilateral perinephric stranding. There is no abdominal free fluid. There is neither mesenteric nor retroperitoneal lymphadenopathy. There is sigmoid diverticula present without evidence of diverticulitis. Otherwise, unremarkable unopacified loops of small and large bowel are identified. There is no pelvic free fluid. The urinary bladder is partially filled. To the right of the urinary bladder is a likely diverticulum. There is neither pelvic nor inguinal lymphadenopathy. Bone windows: Neither sclerotic nor lytic bone lesions are identified. IMPRESSION: Sigmoid diverticulosis without evidence of diverticulitis. Small bilateral pleural effusions with associated airspace disease. Small pericardial effusion. Mild manifestations of emphysema. Cholelithiasis without evidence of cholecystitis. DICTATED BY: Rashaad Caballero MD DATE/TIME DICTATED:08/20/171751 CIVIL RIGHTS REPRESENTATIVE:KIRSTY DATE/TIME TRANSCRIBED:08/20/171751 CONFIDENTIAL, DO NOT COPY WITHOUT APPROPRIATE AUTHORIZATION. CXR Impression: PATIENT: RASHAAD YANEZ PRESENT AGE: 72 PATIENT ACCOUNT NO: [id number] : 45 LOCATION: [facility] ORDERING PHYSICIAN: Emanuel DEL VALLE SERVICE DATE: 08/20/17 EXAM TYPE: RAD - XRY- PORTABLE CHEST XRAY EXAMINATION: CHEST 1 VIEW CLINICAL INFORMATION: Cough, fever. COMPARISON: 07/24/2017. TECHNIQUE: An AP view of the chest is provided. FINDINGS: The cardiac silhouette is not enlarged. A right PICC line is in place. The mediastinal and hilar contours are unremarkable. There are neither pleural effusions nor pneumothoraces. There is a retrocardiac opacity as well as streaky opacification at the right lung base. The osseous structures are stable. IMPRESSION: Retrocardiac airspace disease concerning for pneumonia. Streaky opacification at the medial right lung base. Right PICC line in place. Recommendation is for a followup chest series to be obtained following treatment and/or resolution of symptoms to assure resolution of this appearance. DICTATED BY: Rashaad Caballero MD DATE/TIME DICTATED:08/20/171613 CIVIL RIGHTS REPRESENTATIVE: KIRSTY DATE/TIME TRANSCRIBED:08/20/171613 Initial ED EKG: normal sinus rhythm, ekg INTERPRETATION NORMAL SINUS RHYTHM VERSUS RATE CONTROL ATRIAL FIBRILLATION. pATIENT HAS A HISTORY OF a. FIB AND IS ANTICOAGULATED. hE IS RATE CONTROLLED. nO st OR t-WAVE CHANGES. (Emanuel Lakhani) Departure Departure Disposition: HOME OR SELF CARE Condition: Stable Clinical Impression Primary Impression: Fever Qualifiers: Fever type: unspecified Qualified Code: R50.9 - Fever, unspecified Referrals: Red Lopez MD (PCP/Family) Additional Instructions: Continue all medications as directed. Follow up with YOUr infectious disease doctor and primary care doctor as soon as possible. Monitor symptoms and return with any concerns. Departure Forms: Customer Survey General Discharge Information (Emanuel Lakhani) PA/TEXTILE MACHINE MECHANIC Co-Sign Statement Statement: ED Attending supervision documentation- [x] I saw and evaluated the patient. I have also reviewed all the pertinent lab results and diagnostic results. I agree with the findings and the plan of care as documented in the PA's/TEXTILE MACHINE MECHANIC's documentation. pt presents for eval of a fever, currently being treated for knee prosthesis infection. physical exam reveals confortable appearing pt with no exam findings c/w septic arthritis of right knee. [] I have reviewed the ED Record and agree with the PA's/TEXTILE MACHINE MECHANIC's documentation. [] Additions or exceptions (if any) to the PAs/TEXTILE MACHINE MECHANIC's note and plan are summarized below: [] (Teresita MENON,Renan Charles) Critical Care Note Critical Care Note Critical Care Time: non-applicable (Emanuel Lakhani)
[2017-08-20 16:07] LABS: ABSOLUTE BASOPHIL COUNT 0 /CUMM (0.0-0.2); ABSOLUTE EOSINOPHIL COUNT 0.5 /CUMM (0.0-0.7); ABSOLUTE GRANULOCYTE CT 4.9 /CUMM (1.4-6.5); ABSOLUTE LYMPH COUNT 0.4 /CUMM (1.2-3.4); ABSOLUTE MONOCYTE COUNT 0.5 /CUMM (0.10-0.60); BASOPHIL % 0.3 % (0.0-2.0); EOSINOPHIL % 7.7 % (0-5); GRANULOCYTE % 78.1 % (42.2-75.2); HEMATOCRIT 27.8 % (42-52); MEAN CORPUSCULAR HGB 30.4 PG (27.0-31.0); MEAN PLATELET VOLUME 7.9 FL (7.4-10.4); PLATELET COUNT 255 /CUMM (130-400); RBC DISTRIBUTION WIDTH 16.1 % (11.5-14.5); RED BLOOD CELL CT 2.93 /CUMM (4.70-6.10); WHITE BLOOD CELL COUNT 6.2 /CUMM (4.8-10.8)
--- NOTE | 2017-08-20 16:18 | RADIOLOGY REPORT ---
EXAMINATION: CHEST 1 VIEW CLINICAL INFORMATION: Cough, fever. COMPARISON: 07/24/2017. TECHNIQUE: An AP view of the chest is provided. FINDINGS: The cardiac silhouette is not enlarged. A right PICC line is in place. The mediastinal and hilar contours are unremarkable. There are neither pleural effusions nor pneumothoraces. There is a retrocardiac opacity as well as streaky opacification at the right lung base. The osseous structures are stable. IMPRESSION: Retrocardiac airspace disease concerning for pneumonia. Streaky opacification at the medial right lung base. Right PICC line in place. Recommendation is for a followup chest series to be obtained following treatment and/or resolution of symptoms to assure resolution of this appearance.
--- NOTE | 2017-08-20 18:03 | CT SCAN REPORT ---
EXAMINATION: CT CHEST, ABDOMEN AND PELVIS WITHOUT CONTRAST CLINICAL INFORMATION: Vomiting. Abdominal pain. Cough. Fever. COMPARISON: Same day chest radiograph. TECHNIQUE: Contiguous axial thin section helical images of the chest, abdomen and pelvis were performed without oral or IV contrast. The data set was reformatted in the coronal and sagittal planes and reviewed on an independent workstation. DLP: 514 mGy-cm. FINDINGS: The heart is of normal size. There is a small pericardial effusion. There is neither mediastinal, hilar nor axillary lymphadenopathy. There are no chest wall masses. A right central venous line is in place. The tip terminates near the SVC/right atrial junction. There are small bilateral pleural effusions. There is associated bibasilar atelectasis. There aren't manifestations of mild biapical emphysema. There are no pulmonary nodules. The liver is of normal size and attenuation without concerning focal lesions nor intrahepatic biliary ductal dilation. There is stable subcentimeter low-attenuation lesions within the liver. There is a punctate calcification within the gallbladder lumen. There is no wall thickening or discernible pericholecystic fluid. The spleen, pancreas, adrenal glands are unremarkable. Both kidneys are of normal size and attenuation without hydronephrosis or nephrolithiasis. There is bilateral perinephric stranding. There is no abdominal free fluid. There is neither mesenteric nor retroperitoneal lymphadenopathy. There is sigmoid diverticula present without evidence of diverticulitis. Otherwise, unremarkable unopacified loops of small and large bowel are identified. There is no pelvic free fluid. The urinary bladder is partially filled. To the right of the urinary bladder is a likely diverticulum. There is neither pelvic nor inguinal lymphadenopathy. Bone windows: Neither sclerotic nor lytic bone lesions are identified. IMPRESSION: Sigmoid diverticulosis without evidence of diverticulitis. Small bilateral pleural effusions with associated airspace disease. Small pericardial effusion. Mild manifestations of emphysema. Cholelithiasis without evidence of cholecystitis.
[2017-08-20 20:44] VITALS: BP 116/60
== END 2017-08-20 20:52 ==
LOC: ERH 15:29
PROVIDERS: Physician Assistant Medical
DX: R50.9 Fever, unspecified (principal)
CPT/HCPCS: 71045; 74176; 81001; 87040; 87804; 87804-59; 93005; 93010; 96374; J0131

== ENCOUNTER 2017-10-27 07:51 | Inpatient (IN) | payer OTHER ==
[~2017-10-27] VITALS: Ht 190.5 cm; Wt 71.4 kg
[2017-10-27 08:34] LABS: ABSOLUTE BASOPHIL COUNT 0 /CUMM (0.0-0.2); ABSOLUTE EOSINOPHIL COUNT 3.6 /CUMM (0.0-0.7); ABSOLUTE GRANULOCYTE CT 3.4 /CUMM (1.4-6.5); ABSOLUTE LYMPH COUNT 1.3 /CUMM (1.2-3.4); BASOPHIL % 0.3 % (0.0-2.0); EOSINOPHIL % 38.4 % (0-5); GRANULOCYTE % 36.1 % (42.2-75.2); HEMATOCRIT 31.9 % (42-52); MEAN CORPUSCULAR HGB 29.9 PG (27.0-31.0); MEAN CORPUSCULAR HGB CONC 32.7 G/DL (33.0-37.0); MEAN CORPUSCULAR VOLUME 91.5 FL (80.0-94.0); MEAN PLATELET VOLUME 7.9 FL (7.4-10.4); PLATELET COUNT 296 /CUMM (130-400); RBC DISTRIBUTION WIDTH 15.3 % (11.5-14.5); RED BLOOD CELL CT 3.49 /CUMM (4.70-6.10); WHITE BLOOD CELL COUNT 9.3 /CUMM (4.8-10.8)
--- NOTE | 2017-10-27 08:57 | ED DYSPNEA/ASTHMA COMPLAINT ---
History of Present Illness General Chief Complaint: Dyspnea (COPD, CHF, Other) Stated Complaint: SOB Source: patient Exam Limitations: no limitations Vital Signs & Intake/Output Vital Signs & Intake/Output Vital Signs Date Time Temp Pulse Resp B/P B/P Pulse O2 O2 Flow FiO2 Mean Ox Delivery Rate 10/27 1322 98.0 74 22 146/72 94 Nasal 2.5L Cannula 10/27 1050 97.2 75 22 141/74 96 Nasal 3.0L Cannula 10/27 0858 93 Nasal 2.0L Cannula 10/27 0801 97.4 85 24 129/74 93 Nasal 2.0L Cannula Allergies Coded Allergies: NO KNOWN ALLERGIES (08/21/15) Triage Note: PT TO ED WITH C/O INCREASED SOB OVER THE LAST COUPLE OF DAYS, PT ALSO C/O "RASH ALL OVER MY BODY, I WENT [employer] AND HE GAVE ME 2 CREAMS". PT ON 2L NC AT BASELINE O2 SATS CURRENTLY 93%, BUT WITH SPEAKING DESATS TO 86-88%. PT STATING "I TAKE MY ADVAIR, AND DO NEBULIZER TREATMENTS AT HOME", PT DENIES FEVER AT HOME. Triage Nurses Notes Reviewed? yes Onset: Gradual Duration: getting worse Severity: severe HPI: Patient is a 72-year-old male with a past medical history of atrial fibrillation currently on Eliquis, hypertension, CHF, hyperlipidemia, COPD currently on 2 L at all times of oxygen supplementation, GERD pancreatitis CAD diabetes who was recently admitted and discharged from [facility] for concerns of right knee septic arthritis currently on 2 by mouth antibiotics who presents emergency room with concerns of a three-day history of shortness of breath dyspnea on exertion. Patient is also complaining of a two-week history of entire body itching sensation where he states that when he returned home from his discharge from the emergency room his daughter changed to the detergent on him. Patient is also complaining of right leg swelling. Denies any fevers chills chest pain arm pain jaw pain nausea vomiting diaphoresis night sweats hemoptysis or right knee pain. (Wild DEL VALLE,Dixon) Reconcile Medications Albuterol Sulfate (Proair Hfa) 90 MCG HFA.AER.AD 2 PUF INH Q4-6 PRN PRN Shortness of breath (Reported) Albuterol Sulfate 2.5 MG/3 ML (0.083 %) VIAL.NEB 1 Vial INH/KIMANI Q4P PRN Shortness of breath (Reported) Allopurinol 300 MG TABLET 0.5 TAB PO DAILY GOUT (Reported) Amiodarone (Cordarone) 200 MG TABLET 1 TAB PO DAILY HEART (Reported) Apixaban (Eliquis) 2.5 MG TABLET 1 TAB PO BID Blood thinner Please complete total 6 weeks of Blood thinner.. Atorvastatin Calcium 40 MG TABLET 1 TAB PO DAILY cholesterol (Reported) Cholecalciferol (Vitamin D3) (Vitamin D) 1,000 UNIT TABLET 1 TAB PO DAILY OSTEOPOROSIS Digoxin 125 MCG TABLET 1 TAB PO DAILY HEART (Reported) Fluticasone/Salmeterol (Advair 250-50 Diskus) 250 MCG-50 MCG/DOSE BLST.W.DEV 1 PUF INH BID Shotness of breath (Reported) Lisinopril 10 MG TABLET 1 TAB PO DAILY HIGH BLOOD PRESSURE (Reported) Pantoprazole Sodium (Protonix) 20 MG TABLET.DR 2 TAB PO DAILY ACID REFLUX ( Reported) Prednisone 10 MG TABLET 1 TAB PO DAILY COPD (Reported) Rifampin (Rifadin) 300 MG CAPSULE 1 CAP PO BID Septic arthritis Please follow up infectious disease Dr. Lui for further antibiotic course. His contact # [phone] Spironolactone (Aldactone) 25 MG TABLET 1 TAB PO DAILY CHF (Reported) Tiotropium [place] (Spiriva) 18 MCG CAP.W.DEV 1 CAP INH DAILY Shortness of breath (Reported) (Renan Cruz DO) Past History Travel History Traveled to [place] past 21 day No Medical History Any Pertinent Medical History? see below for history Neurological: NONE EENT: cataracts Cardiovascular: AFIB, CHF, hypertension, hyperlipidemia Respiratory: COPD (2L O2& steroid dependent), pneumonia, O2 DEP 2L Gastrointestinal: GERD, pancreatitis Hepatic: hepatic cysts Renal: chronic kidney disease Musculoskeletal: gout Psychiatric: NONE Endocrine: diabetes (insulin-requiring) Blood Disorders: NONE Cancer(s): NONE GRISTMILLER/Reproductive: NONE Other Medical Hx: Psoriasis History of MRSA: No History of VRE: No History of CDIFF: No Tetanus Vaccine: 06/30/14 Surgical History Surgical History: appendectomy, cataract removal, knee replacement (bilateral) Psychosocial History Who do you live with Family Services at Home Oxygen What is your primary language Lithuanian Tobacco Use: Quit >30 days ago ETOH Use: denies use Illicit Drug Use: denies illicit drug use Family History Family History, If Any: BROTHER, ; Cause: Brain cancer. Uncle ([place] at age 40). FH: myocardial infarction SISTER FH: lung cancer FATHER Hx Contributory? No (Dixon Guzmán) Review of Systems Review of Systems Constitutional: Reports: see HPI. Denies: chills, fever. EENTM: Reports: no symptoms. Respiratory: Reports: see HPI. Cardiovascular: Reports: see HPI. GI: Reports: no symptoms. Genitourinary: Reports: no symptoms. Musculoskeletal: Reports: no symptoms. Skin: Reports: see HPI. Neurological/Psychological: Reports: no symptoms. Hematologic/Endocrine: Reports: no symptoms. Immunologic/Allergic: Reports: no symptoms. All Other Systems: Reviewed and Negative (Dixon Guzmán) Physical Exam Physical Exam General Appearance: no apparent distress, alert, comfortable Head: atraumatic Eyes: Bilateral: normal appearance. Ears, Nose, Throat: normal pharynx, normal ENT inspection, hearing grossly normal Respiratory: no respiratory distress, crackles, wheezing Cardiovascular: regular rate/rhythm Peripheral Pulses: 2+ radial (R) Gastrointestinal: normal bowel sounds, soft Extremities: PLUS 1 RIGHT LEG PITTING EDEMA Neurologic/Psych: no motor/sensory deficits, awake Skin: rash, GENERALIZED URTICARIA RED RASH OF BODY WITH EXCORIATIONS MOST ISOLATED IN RIGHT LEG Core Measures ACS in differential dx? Yes CVA/TIA Diagnosis No Sepsis Present: No Sepsis Focused Exam Completed? No (Dixon Guzmán) Progress Differential Diagnosis: asthma, AMI, bronchitis, costochondritis, CHF, COPD, musculoskeletal pain, pericarditis, pulmonary embolism, pneumonia, pneumothorax, unstable angina Plan of Care: Orders Procedure Date/time Status CBC WITHOUT DIFFERENTIAL 10/28 06 Active BASIC ELECTROLYTES PLUS BUN&CR 10/28 06 Active Heart Healthy Diet 10/27 D Active ED Holding Orders 10/27 1338 Active Admit to inpatient 10/27 1338 Active Vital Signs 10/27 1338 Active Code Status 10/27 1338 Active URINALYSIS 10/27 1331 Active ARTERIAL BLOOD GAS (GEN) 10/27 1308 Active Pathway - chart 10/27 1250 Active Patient Data 10/27 1250 Active Code Status 10/27 1250 Complete Patient Data 10/27 1228 Active Add-on Test (ER Only) 10/27 0907 Active D-DIMER 10/27 0907 Complete Add-on Test (ER Only) 10/27 0906 Active TROPONIN LEVEL 10/27 0811 Complete B-TYPE NATRIURETIC PEP (BNP) 10/27 0811 Complete COMPREHENSIVE METABOLIC PANEL 10/27 08 Complete CBC WITHOUT DIFFERENTIAL 10/27 08 Complete EKG 10/27 0752 Active TRC EVALUATION (GEN) 10/27 UNK Active House Staff 10/27 UNK Active VTE Mechanical Prophylaxis 10/27 UNK Active Vital Signs 10/27 UNK Active Activity/Ambulation 10/27 UNK Active Current Medications Sig/Luis Start time Last Medication Dose Stop Time Status Admin Azithromycin 500 MG DAILY 10/28 1000 UNVr (Zithromax) Methylprednisolone 40 MG Q8 10/27 1400 UNVr (Solumedrol) Omeprazole 40 MG DAILY AC 10/27 1330 UNVr (Prilosec) Rifampin 300 MG BID 10/27 1329 UNVr (Rifadin-Rimactane 300MG Cap) Spironolactone 25 MG DAILY 10/27 1329 UNVr (Aldactone) Atorvastatin Calcium 40 MG DAILY 10/27 1328 UNVr (Lipitor) Cholecalciferol 1,000 IU DAILY 10/27 1328 UNVr (Vitamin D) Digoxin 0.125 MG DAILY 10/27 1328 UNVr (Lanoxin) Lisinopril 10 MG DAILY 10/27 1328 UNVr (Prinivil) Amiodarone HCl 200 MG DAILY 10/27 1327 UNVr (Cordarone) Laboratory Tests 10/27/17 0907: D-Dimer High Sensitivty 973 H 10/27/17 0811: Anion Gap 10, Estimated GFR 54 L, BUN/Creatinine Ratio 18.5, Glucose 99, Calcium 9.3, Total Bilirubin 0.4, AST 18, ALT 23, Alkaline Phosphatase 55, Troponin I < 0.01, Upg-Y-Xluthswqyhy Pept 2500 H, Total Protein 6.3, Albumin 3.7, Globulin 2.6, Albumin/Globulin Ratio 1.4, CBC w Diff MAN DIFF ORDERED, RBC 3.49 L, MCV 91.5, MCH 29.9, MCHC 32.7 L, RDW 15.3 H, MPV 7.9, Gran % 36.1 L, Lymphocytes % 14.4 L, Monocytes % 10.8 H, Eosinophils % 38.4 H, Basophils % 0.3, Absolute Granulocytes 3.4, Absolute Lymphocytes 1.3, Absolute Monocytes 1.0 H, Absolute Eosinophils 3.6, Absolute Basophils 0, Platelet Estimate VERIFIED BY SMEAR, Poikilocytosis 1+, Anisocytosis 1+, Ovalocytes 1+, Stomatocytes 1+ Patient on initial examination was in no apparent distress no respiratory distress patient does have crackles and wheezing on initial exam, patient was given nebulizer treatment with improvement after reexamination, D-dimer was elevated CT angiogram currently is pending. Ultrasound was negative for DVT. CT angiogram was unremarkable for concerns of pulmonary embolism however due to history of present illness and exam findings or suspicion of COPD exacerbation. Patient was ambulated down the emergency room hallway with 2 L of oxygen showing 86% saturation. Discussed admission with patient was aware and agrees Diagnostic Imaging: Viewed by Me: CT Scan, Ultrasound. Radiology Impression: see comments, Initial ED EKG: normal QRS complex, normal sinus rhythm, 81 BPM,NSR Prior EKG: unchanged Comments: PATIENT: TESSA YANEZ JR PRESENT AGE: 72 PATIENT ACCOUNT NO: [id number] : 45 LOCATION: [facility] ORDERING PHYSICIAN: Dixon DEL VALLE SERVICE DATE: 10/27/17 EXAM TYPE: CAT - CTA CHEST-PULMONARY EMBOLISM EXAMINATION: CT CHEST PE STUDY CLINICAL INFORMATION: Shortness of breath. Elevated d-dimer. Asthma. COPD. History of congestive heart failure and hypertension and cardiac arrhythmia. COMPARISON: CT scan of the chest dated 08/20/2017, 02/12/2017. TECHNIQUE: Prior to contrast administration, localization images were obtained. After the administration of 95 mL of intravenous Optiray 320, multidetector CT volume acquisition of the chest was performed. 3-D postprocessing was performed with multiplanar reconstructions and MIP images obtained at the acquisition workstation under concurrent physician supervision. DLP: 469.63 mGy-cm. FINDINGS: Pulmonary arteries: The bolus timing on this study was acceptable for visualization of the pulmonary arterial tree. There are no intraluminal pulmonary arterial filling defects present to suggest pulmonary embolism in the main pulmonary artery, right and left main pulmonary artery, lobar and segmental branches. Lungs: Debris and mucus strands is seen within the distal trachea and extending into the left mainstem bronchus. There is diffuse thickening of the central airways. Moderate paraseptal and centrilobular emphysema is seen. Biapical pleural-based reticular nodular opacities are noted, consistent with scarring. Tiny calcified pleural based nodular densities seen in the right lower lobe (series 2, image 200, 212), consistent with granulomas. A few nonspecific subpleural reticular nodular opacities are seen in the right upper lobe (series 2, image 136 through 157), unchanged dating back to 02/12/2017. A small right middle lobe 5 mm groundglass opacity nodule is seen (series 2, image 411), not definitely seen previously and of doubtful clinical significance. Mild dependent atelectasis is noted in the lower lobes bilaterally. Cardiac motion artifact limits assessment of the left mid and lower lung. Aorta and heart: The heart is normal in size. The mediastinum and great vessels are normal. There is a small simple appearing pericardial effusion, unchanged. The ascending aorta is borderline aneurysmal, measuring 4.0 cm in maximal AP diameter at the level of the right main pulmonary artery, unchanged. Descending aorta at the same level measures 2.8 cm and the aortic arch just beyond the takeoff of the left subclavian artery measures 3.7 cm. Moderate atherosclerotic calcifications of the abdominal aorta and branch vessels and of the aortic arch are noted. Lymphatic structures: There is no lymphadenopathy. Thyroid gland: Unremarkable. Upper abdomen: There are multiple scattered low-attenuation masses in the right and left lobes of the liver, measuring between 0.5 and 1.5 cm in diameter, unchanged dating back to 02/12/2017, most likely representing multiple small cysts. There is a 1.2 cm fluid attenuation mass in the mid left kidney and a 0.6 cm mid right renal low-attenuation mass, similar to prior studies and consistent with small cysts. There is an exophytic 0.9 cm mid right renal hyperdense mass, measuring 55 Hounsfield units in density, unchanged from 08/20/[address] scan of the abdomen from 09/02/2014, consistent with a benign finding, such as a hyperdense cyst. Limited evaluation of the upper abdominal viscera demonstrates no focal abnormality. CHEST WALL: Bilateral prominent glandular density is seen in the subareolar soft tissues of the chest, consistent with gynecomastia, unchanged from prior exams. Bones: Old healed fracture deformities of the lateral right eighth rib and the posterior left 11th ribs are seen. S-shaped thoracolumbar scoliosis, prominent vertebral spondylosis, osteopenia and multiple compression deformities in the spine are again seen, unchanged. IMPRESSION: 1. No evidence of pulmonary embolism. 2. Moderate emphysema, biapical pleural parenchymal scarring, debris within the trachea and left mainstem bronchus, and lung nodularity noted, unchanged. No suspicious new pulmonary nodule or mass is seen. Subtle small groundglass opacity nodule in the right middle lobe is new but may be due to airway associated disease rather than a true lung nodule. 3. Borderline aneurysmal ascending aorta with maximal AP diameter of 4.0 cm, unchanged from prior exam. 4. Hepatic cysts and bilateral renal cysts, including a hyperdense mid right renal cyst. 5. Gynecomastia, unchanged. 6. Stable small pericardial effusion. VTE: Negative. PATIENT: TESSA YANEZ JR PRESENT AGE: 72 PATIENT ACCOUNT NO: [id number] : 45 LOCATION: [facility] ORDERING PHYSICIAN: Dixon DEL VALLE SERVICE DATE: 10/27/17 EXAM TYPE: US - US-UNILATERAL VENOUS DOPPLER EXAMINATION: US TRIPLEX LOWER EXTREMITY, RIGHT. CLINICAL INFORMATION: Right leg swelling. COMPARISON: Ultrasound bilateral lower extremity venous Doppler 717. 14 TECHNIQUE: Color-flow triplex imaging with spectral analysis and compression Doppler were performed on the lower extremity. FINDINGS: Respiratory variation, normal compression and augmented flow are noted throughout the lower extremity. The visualized common femoral vein, superficial femoral vein, profunda femoral vein, popliteal vein and midcalf peroneal and posterior tibial venous segments show no evidence of deep venous thrombosis. There is no Gutierrez's cyst. IMPRESSION: Normal right lower leg venous study. DICTATED BY: Abner Beard MD DATE/TIME DICTATED:10/27/171033 [facility] PROGRAM COORDINATOR:KIRSTY DATE/TIME TRANSCRIBED:10/27/171033 (Dixon Guzmán) Departure Departure Disposition: STILL A PATIENT Condition: Stable Clinical Impression Primary Impression: COPD exacerbation Secondary Impressions: Contact dermatitis Referrals: Red Lopez MD (PCP/Family) Departure Forms: Customer Survey General Discharge Information Admission Note Spoke With: Red Lopez MD Documentation of Exam: Documentation of any treatments & extenuating circumstances including Concerns Regarding Discharge (functional status, medication knowledge or non-compliance, living conditions, etc.) that warrant an admission rather than observation: [ Patient requires pulmonary consultation IV steroids, repeat nebulizer treatments antihistamine medications in which patient has failed outpatient treatment with previously prescribed steroids and nebulizers.] (Dixon Guzmán) PA/COMMERCIAL FIELD INSPECTOR Co-Sign Statement Statement: ED Attending supervision documentation- [X] I saw and evaluated the patient. I have also reviewed all the pertinent lab results and diagnostic results. I agree with the findings and the plan of care as documented in the PA's/COMMERCIAL FIELD INSPECTOR's documentation. [] I have reviewed the ED Record and agree with the PA's/COMMERCIAL FIELD INSPECTOR's documentation. [] Additions or exceptions (if any) to the PAs/COMMERCIAL FIELD INSPECTOR's note and plan are summarized below: [] 10/27/17 I've seen and personally examined the patient and I agree with the PAs evaluation. Bilateral expiratory wheezes. (Anthony ASHRAF,Renan Miller) Critical Care Note Critical Care Note Critical Care Time: 30-74 min (Dixon Guzmán)
--- NOTE | 2017-10-27 10:42 | ULTRASOUND REPORT ---
EXAMINATION: US TRIPLEX LOWER EXTREMITY, RIGHT. CLINICAL INFORMATION: Right leg swelling. COMPARISON: Ultrasound bilateral lower extremity venous Doppler 717. 14 TECHNIQUE: Color-flow triplex imaging with spectral analysis and compression Doppler were performed on the lower extremity. FINDINGS: Respiratory variation, normal compression and augmented flow are noted throughout the lower extremity. The visualized common femoral vein, superficial femoral vein, profunda femoral vein, popliteal vein and midcalf peroneal and posterior tibial venous segments show no evidence of deep venous thrombosis. There is no Gutierrez's cyst. IMPRESSION: Normal right lower leg venous study.
--- NOTE | 2017-10-27 12:03 | CT SCAN REPORT ---
EXAMINATION: CT CHEST PE STUDY CLINICAL INFORMATION: Shortness of breath. Elevated d-dimer. Asthma. COPD. History of congestive heart failure and hypertension and cardiac arrhythmia. COMPARISON: CT scan of the chest dated 08/20/2017, 02/12/2017. TECHNIQUE: Prior to contrast administration, localization images were obtained. After the administration of 95 mL of intravenous Optiray 320, multidetector CT volume acquisition of the chest was performed. 3-D postprocessing was performed with multiplanar reconstructions and MIP images obtained at the acquisition workstation under concurrent physician supervision. DLP: 469.63 mGy-cm. FINDINGS: Pulmonary arteries: The bolus timing on this study was acceptable for visualization of the pulmonary arterial tree. There are no intraluminal pulmonary arterial filling defects present to suggest pulmonary embolism in the main pulmonary artery, right and left main pulmonary artery, lobar and segmental branches. Lungs: Debris and mucus strands is seen within the distal trachea and extending into the left mainstem bronchus. There is diffuse thickening of the central airways. Moderate paraseptal and centrilobular emphysema is seen. Biapical pleural-based reticular nodular opacities are noted, consistent with scarring. Tiny calcified pleural based nodular densities seen in the right lower lobe (series 2, image 200, 212), consistent with granulomas. A few nonspecific subpleural reticular nodular opacities are seen in the right upper lobe (series 2, image 136 through 157), unchanged dating back to 02/12/2017. A small right middle lobe 5 mm groundglass opacity nodule is seen (series 2, image 411), not definitely seen previously and of doubtful clinical significance. Mild dependent atelectasis is noted in the lower lobes bilaterally. Cardiac motion artifact limits assessment of the left mid and lower lung. Aorta and heart: The heart is normal in size. The mediastinum and great vessels are normal. There is a small simple appearing pericardial effusion, unchanged. The ascending aorta is borderline aneurysmal, measuring 4.0 cm in maximal AP diameter at the level of the right main pulmonary artery, unchanged. Descending aorta at the same level measures 2.8 cm and the aortic arch just beyond the takeoff of the left subclavian artery measures 3.7 cm. Moderate atherosclerotic calcifications of the abdominal aorta and branch vessels and of the aortic arch are noted. Lymphatic structures: There is no lymphadenopathy. Thyroid gland: Unremarkable. Upper abdomen: There are multiple scattered low-attenuation masses in the right and left lobes of the liver, measuring between 0.5 and 1.5 cm in diameter, unchanged dating back to 02/12/2017, most likely representing multiple small cysts. There is a 1.2 cm fluid attenuation mass in the mid left kidney and a 0.6 cm mid right renal low-attenuation mass, similar to prior studies and consistent with small cysts. There is an exophytic 0.9 cm mid right renal hyperdense mass, measuring 55 Hounsfield units in density, unchanged from 08/20/[address] scan of the abdomen from 09/02/2014, consistent with a benign finding, such as a hyperdense cyst. Limited evaluation of the upper abdominal viscera demonstrates no focal abnormality. CHEST WALL: Bilateral prominent glandular density is seen in the subareolar soft tissues of the chest, consistent with gynecomastia, unchanged from prior exams. Bones: Old healed fracture deformities of the lateral right eighth rib and the posterior left 11th ribs are seen. S-shaped thoracolumbar scoliosis, prominent vertebral spondylosis, osteopenia and multiple compression deformities in the spine are again seen, unchanged. IMPRESSION: 1. No evidence of pulmonary embolism. 2. Moderate emphysema, biapical pleural parenchymal scarring, debris within the trachea and left mainstem bronchus, and lung nodularity noted, unchanged. No suspicious new pulmonary nodule or mass is seen. Subtle small groundglass opacity nodule in the right middle lobe is new but may be due to airway associated disease rather than a true lung nodule. 3. Borderline aneurysmal ascending aorta with maximal AP diameter of 4.0 cm, unchanged from prior exam. 4. Hepatic cysts and bilateral renal cysts, including a hyperdense mid right renal cyst. 5. Gynecomastia, unchanged. 6. Stable small pericardial effusion. VTE: Negative.
--- NOTE | 2017-10-27 12:47 | History & Physical ---
General Information and [facility] MD Statement: I have seen and personally examined TESSA YANEZ JR and documented this H &P. The patient is a 72 year old M who presented with a patient stated chief complaint of [SHORTNESS OF BREATH]. 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 He started experiencing rash all over his right lower extremity and back for the past 3 weeks, underwent evaluation by manager chemistry and started on Benadryl and steroid cream apparently. Despite these creams it got worse. He started experiencing shortness of breath for the past few days, associated with significant worsening requiring nebulization with exertion even to the restroom. He started using nebulizer frequently and came for further evaluation. He usually stays at home at any home health services. In the ER he desaturated while speaking to 86-88%. After breathing treatment, attempted to walk with eventual desaturation to 88% on 2 L oxygen. He denies any fevers, recent upper respiratory infections. Reportedly compliant with his medications and nebulization. He could not make to his recent appointment with Dr. Lopez on Saturday. He was recently admitted with infected right knee prosthesis secondary to MSSA underwent knee irrigation and debridement, synovectomy and exchange of the polyethylene liner. He was placed on 6 week course of IV antibiotics at [facility], followed by a 6 month course of an oral regimen - Keflex and Rifampin which he is currently on. Allergies/Medications Allergies: Coded Allergies: NO KNOWN ALLERGIES (08/21/15) Home Med list Albuterol Sulfate (Proair Hfa) 90 MCG HFA.AER.AD 2 PUF INH Q4-6 PRN PRN Shortness of breath (Reported) Albuterol Sulfate 2.5 MG/3 ML (0.083 %) VIAL.NEB 1 Vial INH/KIMANI Q4P PRN Shortness of breath (Reported) Allopurinol 300 MG TABLET 0.5 TAB PO DAILY GOUT (Reported) Amiodarone (Cordarone) 200 MG TABLET 1 TAB PO DAILY HEART (Reported) Apixaban (Eliquis) 2.5 MG TABLET 1 TAB PO BID Blood thinner Please complete total 6 weeks of Blood thinner.. Atorvastatin Calcium 40 MG TABLET 1 TAB PO DAILY cholesterol (Reported) Cephalexin (Keflex) 500 MG CAPSULE 1 CAP PO TID prosthetic joint infection ( Reported) Cholecalciferol (Vitamin D3) (Vitamin D) 1,000 UNIT TABLET 1 TAB PO DAILY OSTEOPOROSIS Clobetasol Propionate 0.05 % SOLUTION 1 JO TOP ONCE A WEEK SCALP (Reported) Clobetasol Propionate 0.05 % CREAM..G. 1 JO TOP AD SKIN (Reported) apply to affected area(s) Digoxin 125 MCG TABLET 1 TAB PO DAILY HEART (Reported) Fluticasone/Salmeterol (Advair 250-50 Diskus) 250 MCG-50 MCG/DOSE BLST.W.DEV 1 PUF INH BID Shotness of breath (Reported) Hydrocortisone 2.5 % CREAM..G. 1 JO TOP AD PRN SKIN (Reported) apply to affected area(s) Lisinopril 10 MG TABLET 1 TAB PO DAILY HIGH BLOOD PRESSURE (Reported) Metoprolol Succ XL (Toprol XL) 25 MG TAB 1 TAB PO DAILY heart health ( Reported) Nystatin (Nyamyc) 100,000 UNIT/GRAM POWDER 1 JO TOP PRN GROIN (Reported) Pantoprazole Sodium (Protonix) 20 MG TABLET.DR 2 TAB PO DAILY ACID REFLUX ( Reported) Prednisone 10 MG TABLET 1 TAB PO DAILY COPD (Reported) Rifampin (Rifadin) 300 MG CAPSULE 1 CAP PO BID Septic arthritis Please follow up infectious disease Dr. Lui for further antibiotic course. His contact # [phone] Spironolactone (Aldactone) 25 MG TABLET 1 TAB PO DAILY CHF (Reported) Tiotropium [place] (Spiriva) 18 MCG CAP.W.DEV 1 CAP INH DAILY Shortness of breath (Reported) Triamcinolone Acetonide 0.1 % CREAM..G. 1 JO TOP AD PRN SKIN (Reported) Compliance With Home Meds: GOOD Past History Travel History Traveled to [place] past 21 day No Medical History Neurological: NONE EENT: cataracts Cardiovascular: AFIB, CHF, hypertension, hyperlipidemia Respiratory: COPD (2L O2& steroid dependent), pneumonia, O2 DEP 2L Gastrointestinal: GERD, pancreatitis Hepatic: hepatic cysts Renal: chronic kidney disease Musculoskeletal: gout Psychiatric: NONE Endocrine: diabetes (insulin-requiring) Blood Disorders: NONE Cancer(s): NONE WINDOWS DESKTOP SUPPORT/Reproductive: NONE Other Medical Hx: Psoriasis History of MRSA: No History of VRE: No History of CDIFF: No Tetanus Vaccine: 06/30/14 Surgical History Surgical History: appendectomy, cataract removal, knee replacement (bilateral) Past Family/Social History Family History Relations & Conditions if any BROTHER, ; Cause: Brain cancer. Uncle ([place] at age 40). FH: myocardial infarction SISTER FH: lung cancer FATHER Psychosocial History Who Do You Live With? spouse, 2 daughters, one son, granddaughter and her Services at Home: Oxygen Primary Language: Polish ETOH Use: denies use Illicit Drug Use: denies illicit drug use Functional Ability ADLs Independent: dressing, eating, toileting, bathing. Ambulation: independent IADLs Independent: shopping, housework, finances, food prep, telephone, transportation , medication admin. Review of Systems Review of Systems Constitutional: Reports: see HPI. EENTM: Reports: see HPI. Cardiovascular: Reports: see HPI. Respiratory: Reports: cough, short of breath. GI: Reports: see HPI. Genitourinary: Reports: see HPI. Musculoskeletal: Reports: see HPI. Exam & Diagnostic Data Last 24 Hrs of Vital Signs/I&O Vital Signs Date Time Temp Pulse Resp B/P B/P Pulse O2 O2 Flow FiO2 Mean Ox Delivery Rate 10/27 1050 97.2 75 22 141/74 96 Nasal 3.0L Cannula 10/27 0858 93 Nasal 2.0L Cannula 10/27 0801 97.4 85 24 129/74 93 Nasal 2.0L Cannula Intake & Output 10/27 1600 10/27 0800 10/27 0000 Intake Total 0 Output Total Balance 0 Intake, Oral 0 Patient 79.832 kg Weight Weight Reported by Patient Measurement Method Physical Exam General Appearance Alert, Oriented X3, Cooperative, Mild Distress Skin No Rashes, No Breakdown Skin Temp/Moisture Exam: Warm/Dry Sepsis Skin Exam (color): Normal for Ethnicity HEENT Atraumatic, PERRLA Neck Supple, No JVD Cardiovascular Normal S1, Normal S2 Lungs Clear to Auscultation, Normal Air Movement, diffuse expiratory wheezing present Abdomen Normal Bowel Sounds, Soft, No Tenderness Neurological Normal Speech, Strength at 5/5 X4 Ext, Normal Tone, Sensation Intact Extremities No Clubbing, No Cyanosis, 1-2+ pitting edema on the right leg Vascular Normal Pulses Body Front and Back (Adult) 1) diffuse macualr rash with excoriations 2) Rash with excoriations Last 24 Hrs of Labs/Chacorta: Laboratory Tests 10/27/17 0907: D-Dimer High Sensitivty 973 H 10/27/17 0811: Anion Gap 10, Estimated GFR 54 L, BUN/Creatinine Ratio 18.5, Glucose 99, Calcium 9.3, Total Bilirubin 0.4, AST 18, ALT 23, Alkaline Phosphatase 55, Troponin I < 0.01, Wbf-[id number]-Byzazvmtouq Pept 2500 H, Total Protein 6.3, Albumin 3.7, Globulin 2.6, Albumin/Globulin Ratio 1.4, CBC w Diff MAN DIFF ORDERED, RBC 3.49 L, MCV 91.5, MCH 29.9, MCHC 32.7 L, RDW 15.3 H, MPV 7.9, Gran % 36.1 L, Lymphocytes % 14.4 L, Monocytes % 10.8 H, Eosinophils % 38.4 H, Basophils % 0.3, Absolute Granulocytes 3.4, Absolute Lymphocytes 1.3, Absolute Monocytes 1.0 H, Absolute Eosinophils 3.6, Absolute Basophils 0, Platelet Estimate VERIFIED BY SMEAR, Poikilocytosis 1+, Anisocytosis 1+, Ovalocytes 1+, Stomatocytes 1+ Assessment/Plan Assessment: Patient is a 72 YO M with PMH of DM, HTN, A.fib on eliquis, CHF, chronic renal failure, 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 He started experiencing rash all over his right lower extremity and back for the past 3 weeks, underwent evaluation by manager chemistry and started on Benadryl and steroid cream apparently. VS in the ER are significant for Tmax of 98.6, heart rate 85, blood pressure 129/74 mmHg, saturation 93% on room air. Labs returned white count of 9.3, H&H 10/15.3, chem panel sodium 139, potassium 4.4, BUN/creatinine 24/1.3, GFR 54, proBNP 25,000 TSH 83 with free T4 of 2.2. D-dimer 973. Dig level 1.5. ABG did show 7.43/42/ 73/28. Flu swab negative. Imaging ruled out PE with CT angiogram. CT did show centrilobular emphysema with biapical paraseptal pleural-based reticular opacities. No suspicious pulmonary nodules. Groundglass nodule in the right middle lobe concerning for airspace disease. Aneurysmal dilatation of 4 cm. Hepatic and renal cysts. Gynecomastia. Admitted to general medicine floor for COPD exacerbation and eczematous rash Problem list 1. COPD exacerbation 2. Extensive rash - presumably eczematous 3. Recent Septic joint with MSSA currently on 2 antibiotics -Keflex and rifampin 4. Hypertension 5. Atrial fibrillation on Eliquis and metoprolol succinate 6. CKD 7. Gout on allopurinol COPD exacerbation Patient had a history of steroid-dependent COPD on 2 L oxygen requirement at baseline. He follows Dr. Younger. He denies any recent upper respiratory infection/ongoing chest pain recently. He is reportedly complicated with his medications but however reports being on Eliquis 2.5 mg once a day. He is ruled out for PE by CT and should the ER. Physical examination is significant for diffuse wheezing all over the lungs. * A single dose of IV methylprednisolone quadrant for given in the ER * Continue IV steroids and azithromycin * Pulmonary consultation - * TRC/nebulizers Extensive eczematous rash with elevated eosinophils - 38% Patient did have hives during his previous admission for unclear reasons. He started experiencing this rash around 3 weeks ago, went to a manager chemistry where he was provided with antihistaminic and steroid creams. Despite treatment the rash got progressively worse to the extent his skin started breaking down due to severe scratching. He had 38% of eosinophilics in the differential. * A single dose of IV Benadryl given in ER * Continue IV Benadryl at bedtime * IV steroids help with rash as well Recent Septic joint with MSSA currently on 2 antibiotics -Keflex and rifampin Patient was admitted recently to [facility] with MSSA septic joint. Received 6 weeks of IV oxacillin followed by oral keflex and rifampin for the next 6 months (till february). following the patient. * Continue keflex and rifampin -- confirm doses with pharmacy Hypertension Continue lisinopril Atrial fibrillation on Eliquis and metoprolol succinate On Eliquis 2.5mg daily and metoprolol succinate 25mg daily. Ideally it should be eliquis 2.5mg BID. * Please confirm the medications - especially eliquis dose CKD Gout on allopurinol DVT prophylaxis SC heparin Code status DNR/DNI As Ranked By This Provider Problem List: 1. Atrial fibrillation 2. COPD exacerbation 3. Contact dermatitis 4. Septic arthritis Core Measures/Misc (04/14) Acute Coronary Syndrome ACS Diagnosis: No Congestive Heart Failure Congestive Heart Failure Diagnosis No Cerebrovascular Accident CVA/TIA Diagnosis: No VTE (View Protocol) VTE Risk Factors Acute Medical Illness No Mechanical VTE Prophylaxis d/t N/A MechProphylax Ordered No VTE Pharm Prophylaxis d/t NA PharmProphylax ordered Sepsis (View protocol) Sepsis Present: No
[2017-10-27] MEDS ORDERED: TOPROL XL25 M1 PO (14:03)
[2017-10-27] MEDS ORDERED: KEFLEX500 M1 PO (14:04)
--- NOTE | 2017-10-27 14:05 | Admission Certification ---
Admission Certification Certification Statement - As attending physician, I certify that at the time of - admission, based on clinical presentation, severity of - symptoms, need for further diagnostic testing and - therapeutic interventions, and risk of adverse outcomes - without in-hospital treatment, in my clinical assessment, - this patient requires an acute hospital stay for a minimum - of two nights or longer. I have also considered psychsocial - factors such as support system, advanced age, financial - issues, cognitive issues, and failed out-patient treatments, - past re-admission history, safety of patient, and lack of - compliance as applicable. Specific rationale supporting this admission is: Exacerbation of COPD, patient also has a rash
[2017-10-27] MEDS ORDERED: CLOBETASOL PROP50 M1 TOP (14:08)
--- NOTE | 2017-10-27 14:08 | PN- Att Addend ---
Attending Addendum Attending Brief Note 72-year-old white male with history of COPD CHF and atrial fibrillation and also been treated with antibiotics for a knee infection, has been having some increased shortness of breath for the last 2 or 3 days uses oxygen at home and comes in the ER in some respiratory distress saturating adequately at rest his O2 saturation goes down when he starts talking fever also has had a rash for which she has seen the orchestra teacher and is on treatment after evaluation in the emergency room and getting some IV steroids the patient is a little improved. Will admit and treat as a COPD exacerbation case was discussed with resident Current Medications Sig/Luis Start time Last Medication Dose Route Stop Time Status Admin Albuterol Sulfate 3 ML ONCE ONE 10/27 1230 DC 10/27 INH 10/27 1231 1331 Albuterol Sulfate 3 ML ONCE ONE 10/27 0915 DC 10/27 INH 10/27 0916 0950 Allopurinol 150 MG DAILY 10/27 1403 AC PO Amiodarone HCl 200 MG DAILY 10/27 1327 AC PO Atorvastatin Calcium 40 MG DAILY 10/27 1328 AC PO Azithromycin 500 MG DAILY 10/28 1000 UNVr PO Azithromycin 500 MG ONCE ONE 10/27 1230 DC 10/27 Dextrose/Water 250 ML IV 10/27 1329 1303 Cephalexin 500 MG TID 10/27 1600 UNVr PO Cholecalciferol 1,000 IU DAILY 10/27 1328 AC PO Digoxin 0.125 MG DAILY 10/27 1328 AC PO Diphenhydramine HCl 0 .STK-MED ONE 10/27 0922 DC .ROUTE Diphenhydramine HCl 50 MG ONCE ONE 10/27 0915 DC 10/27 IV 10/27 0916 0920 Ipratropium [place] 2.5 ML ONCE ONE 10/27 0915 DC 10/27 INH 10/27 0916 0950 Lisinopril 10 MG DAILY 10/27 1328 AC PO Methylprednisolone 40 MG Q8H 10/27 1700 DC IV Methylprednisolone 40 MG Q8H 10/27 1700 AC IV Methylprednisolone 40 MG Q8 10/27 1400 CAN IV Methylprednisolone 0 .STK-MED ONE 10/27 0922 DC .ROUTE Methylprednisolone 125 MG ONCE ONE 10/27 0915 DC 10/27 IV 10/27 0916 0920 Metoprolol Succinate 25 MG DAILY 10/27 1403 AC PO Omeprazole 40 MG DAILY AC 10/27 1330 AC PO Rifampin 300 MG BID 10/27 1328 AC PO Spironolactone 25 MG DAILY 10/27 1329 AC PO Laboratory Tests 10/27/17 0907: D-Dimer High Sensitivty 973 H 10/27/17 0811: Anion Gap 10, Estimated GFR 54 L, BUN/Creatinine Ratio 18.5, Glucose 99, Calcium 9.3, Total Bilirubin 0.4, AST 18, ALT 23, Alkaline Phosphatase 55, Troponin I < 0.01, Xgn-B-Ejbtqexvpls Pept 2500 H, Total Protein 6.3, Albumin 3.7, Globulin 2.6, Albumin/Globulin Ratio 1.4, CBC w Diff MAN DIFF ORDERED, RBC 3.49 L, MCV 91.5, MCH 29.9, MCHC 32.7 L, RDW 15.3 H, MPV 7.9, Gran % 36.1 L, Lymphocytes % 14.4 L, Monocytes % 10.8 H, Eosinophils % 38.4 H, Basophils % 0.3, Absolute Granulocytes 3.4, Absolute Lymphocytes 1.3, Absolute Monocytes 1.0 H, Absolute Eosinophils 3.6, Absolute Basophils 0, Platelet Estimate VERIFIED BY SMEAR, Poikilocytosis 1+, Anisocytosis 1+, Ovalocytes 1+, Stomatocytes 1+ Vital Signs Date Time Temp Pulse Resp B/P B/P Pulse O2 O2 Flow FiO2 Mean Ox Delivery Rate 10/27 1322 98.0 74 22 146/72 94 Nasal 2.5L Cannula 10/27 1050 97.2 75 22 141/74 96 Nasal 3.0L Cannula 10/27 0858 93 Nasal 2.0L Cannula 10/27 0801 97.4 85 24 129/74 93 Nasal 2.0L Cannula His white count is within normal limits ABGs will be checked.
[2017-10-27] MEDS ORDERED: HYDROCORTISO453.6 G2 TOP (14:09)
[2017-10-27] MEDS ORDERED: TRIAMCINOLONE A15 G1 TOP (14:09)
[2017-10-27] MEDS ORDERED: NYAMYC15 GM TOP (14:09)
[2017-10-27] MEDS ORDERED: CLOBETASOL PROP15 GM TOP (14:10)
[2017-10-27 17:14] VITALS: BP 152/68
[2017-10-27 21:33] VITALS: BP 144/80
[2017-10-28 06:20] VITALS: BP 124/70
--- NOTE | 2017-10-28 07:27 | PN- Housestaff ---
Subjective Follow-up For: COPD Exacerbation Extensive prupritis Subjective: Mr Welch was seen and examined this morning. He is resting comfortably in bed. States that he feels better. States he was able to get some rest. Denies any fever, chills, nausea, vomiting. States pruritus has responded well to IV Benadryl and requests more of this medication. Currently has been tolerating by mouth intake well. Does not endorse any knee pain and states he has been compliant on his outpatient antibiotics. Review of Systems Constitutional: Reports: see HPI. Objective Last 24 Hrs of Vital Signs/I&O Vital Signs Date Time Temp Pulse Resp B/P B/P Pulse O2 O2 Flow FiO2 Mean Ox Delivery Rate 10/28 956 70 10/28 0957 70 10/28 0957 70 10/28 0957 70 12410/28 0900 93 Nasal 3.0L Cannula 10/28 0800 95 Nasal 2.5L Cannula 10/28 0620 98.2 66 18 124/70 95 Nasal Cannula 10/28 0000 Nasal 2.5L Cannula 10/27 2242 Nasal 2.0L Cannula 10/27 2133 98.0 74 20 144/80 93 Nasal 2.5L Cannula 10/27 1714 97.8 78 20 152/68 97 Nasal 2.0L Cannula 10/27 1630 93 Nasal 2.5L Cannula 10/27 1625 98.4 77 19 142/70 94 Nasal 2.5L Cannula Intake & Output 10/28 1600 10/28 0800 10/28 0000 Intake Total 235 220 Output Total 700 950 Balance -465 -730 Intake, IV 15 Intake, Oral 220 220 Output, Urine 700 950 Patient 71.384 kg 79.832 kg Weight Weight Reported by Patient Measurement Method Physical Exam General Appearance: Alert, Oriented X3, Cooperative Skin: Multiple petechie noted on Right and left lower extremity HEENT: Mucous Membr. moist/pink Cardiovascular: Normal S1, Normal S2 Lungs: decreased Breath sounds Neurological: Normal Speech Current Medications: Current Medications Sig/Luis Start time Last Medication Dose Route Stop Time Status Admin Acetaminophen 650 MG Q6P PRN 10/27 2115 AC PO Albuterol Sulfate 3 ML TID 10/28 1000 AC 10/28 INH 1400 Allopurinol 150 MG DAILY 10/27 1403 AC 10/28 PO 1044 Amiodarone HCl 200 MG DAILY 10/27 1327 AC 10/28 PO 0957 Apixaban 2.5 MG BID 10/28 1448 UNVr PO Atorvastatin Calcium 40 MG DAILY 10/27 1328 AC 10/28 PO 0957 Azithromycin 500 MG DAILY 10/28 1000 AC 10/28 PO 0959 Cephalexin 500 MG TID 10/27 1600 AC 10/28 PO 0958 Cholecalciferol 1,000 IU DAILY 10/27 1328 AC 10/28 PO 0958 Digoxin 0.125 MG DAILY 10/27 1328 AC 10/28 PO 0957 Diphenhydramine HCl 25 MG AT BEDTIME 10/27 2200 AC 10/27 IV 2132 Furosemide 20 MG ONCE ONE 10/27 1730 DC 10/27 PO 10/27 1731 1830 Hydrocodone Bitart/ 1 TAB Q6P PRN 10/27 2115 AC Acetaminophen PO Lisinopril 10 MG DAILY 10/27 1328 AC 10/28 PO 0957 Methylprednisolone 40 MG Q8H 10/27 1700 DC IV Methylprednisolone 40 MG Q8H 10/27 1700 AC 10/28 IV 0834 Metoprolol Succinate 25 MG DAILY 10/27 1403 AC 10/28 PO 0957 Omeprazole 40 MG DAILY AC 10/27 1330 AC 10/28 PO 0624 Rifampin 300 MG BID 10/27 1329 AC 10/28 PO 0957 Spironolactone 25 MG DAILY 10/27 1329 AC 10/28 PO 0955 Last 24 Hrs of Lab/Chacorta Results Last 24 Hrs of Labs/Mics: Laboratory Tests 10/28/17 0810: Anion Gap 12, Estimated GFR 50 L, BUN/Creatinine Ratio 19.3, CBC w Diff NO MAN DIFF REQ, RBC 3.19 L, MCV 91.9, MCH 30.1, MCHC 32.8 L, RDW 14.7 H, MPV 8.0, Gran % 75.3 H, Lymphocytes % 12.1 L, Monocytes % 10.2 H, Eosinophils % 1.8, Basophils % 0.6, Absolute Granulocytes 4.3, Absolute Lymphocytes 0.7 L, Absolute Monocytes 0.6, Absolute Eosinophils 0.1, Absolute Basophils 0 10/27/172: Urine Color YEL, Urine Clarity CLEAR, Urine pH 6.0, Ur Specific Collins 1.010, Urine Protein NEG, Urine Ketones NEG, Urine Nitrite NEG, Urine Bilirubin NEG, Urine Urobilinogen 0.2, Ur Leukocyte Esterase NEG, Ur Microscopic EXAM NOT REQUIRED, Urine Hemoglobin NEG, Urine Glucose NEG Microbiology 10/28 0956 LOWER RESP: Respiratory Culture - ORD 10/28 0956 LOWER RESP: Gram Stain - ORD 10/27 1623 NASOPHARYN: Influenza Virus A & B Rapid Smear - COMP Assessment/Plan Assessment: Patient is a 72 YO M with PMH of DM, HTN, A.fib on eliquis, CHF, chronic renal failure, 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 He started experiencing rash all over his right lower extremity and back for the past 3 weeks, underwent evaluation by scalemaker and started on Benadryl and steroid cream apparently. VS in the ER are significant for Tmax of 98.6, heart rate 85, blood pressure 129/74 mmHg, saturation 93% on room air. Labs returned white count of 9.3, H&H 10/15.3, chem panel sodium 139, potassium 4.4, BUN/creatinine 24/1.3, GFR 54, proBNP 25,000 TSH 83 with free T4 of 2.2. D-dimer 973. Dig level 1.5. ABG did show 7.43/42/ 73/28. Flu swab negative. Imaging ruled out PE with CT angiogram. CT did show centrilobular emphysema with biapical paraseptal pleural-based reticular opacities. No suspicious pulmonary nodules. Groundglass nodule in the right middle lobe concerning for airspace disease. Aneurysmal dilatation of 4 cm. Hepatic and renal cysts. Gynecomastia. Admitted to general medicine floor for COPD exacerbation and eczematous rash Problem list #COPD exacerbation #Chronic Systolic Heart Failure Last Echo Estimated EF 35-40%. #Extensive rash - presumably eczematous #Recent Septic joint with MSSA currently on 2 antibiotics -Keflex and rifampin #Hypertension #Atrial fibrillation on Eliquis and metoprolol succinate #CKD Stage III #Gout on allopurinol #?DM COPD exacerbation Patient had a history of steroid-dependent COPD on 2 L oxygen requirement at baseline. He follows Dr. Younger. He denies any recent upper respiratory infection/ongoing chest pain recently. He is reportedly complicated with his medications but however reports being on Eliquis 2.5 mg once a day. He is ruled out for PE by CT and should the ER. Physical examination is significant for diffuse wheezing all over the lungs. * A single dose of IV methylprednisolone quadrant for given in the ER * Continue IV steroids and azithromycin * TRC/nebulizers * LRC culture * Incentive Spirometer #Chronic Systolic Heart Failure Last Echo Estimated EF 35-40%. Continue Home medications, Spironolacotone #Extensive eczematous rash with elevated eosinophils - 38% Patient did have hives during his previous admission for unclear reasons. He started experiencing this rash around 3 weeks ago, went to a scalemaker where he was provided with antihistaminic and steroid creams. Despite treatment the rash got progressively worse to the extent his skin started breaking down due to severe scratching. He had 38% of eosinophilics in the differential. * A single dose of IV Benadryl given in ER * Continue IV Benadryl * IV steroids help with rash as well * Follow up with Dr Romano as an outpatient. #Recent Septic joint with MSSA currently on 2 antibiotics -Keflex and rifampin Patient was admitted recently to [facility] with MSSA septic joint. Received 6 weeks of IV oxacillin followed by oral keflex and rifampin for the next 6 months (till february). following the patient. * Continue keflex TID and rifampin BID #Hypertension Continue lisinopril #Atrial fibrillation on Eliquis and metoprolol succinate On Eliquis 2.5mg daily (confirmed this with patient, [place] pharmacy was not able to confirm the correct dose, stated they last filled 5 mg BID in January 2017) Continue metoprolol succinate 25mg daily. #CKD satge III Continue Lisinopril BEP in AM #Gout On allopurinol #?DM Will monitor BS TID/HS. If sugars elevated, begin SS. DVT prophylaxis SC heparin Code status DNR/DNI Problem List: 1. Acute on chronic kidney disease, stage 3 2. COPD exacerbation Pain Ratin Pain Location: No Pain Endorsed Pain Goal: Remain pain free Pain Plan: Tylenol PRN Tomorrow's Labs & Rationales: BEP: monitor cr in the setting of ?CHAKA
[2017-10-28 08:49] LABS: ABSOLUTE BASOPHIL COUNT 0 /CUMM (0.0-0.2); ABSOLUTE EOSINOPHIL COUNT 0.1 /CUMM (0.0-0.7); ABSOLUTE GRANULOCYTE CT 4.3 /CUMM (1.4-6.5); ABSOLUTE LYMPH COUNT 0.7 /CUMM (1.2-3.4); ABSOLUTE MONOCYTE COUNT 0.6 /CUMM (0.10-0.60); BASOPHIL % 0.6 % (0.0-2.0); EOSINOPHIL % 1.8 % (0-5); HEMATOCRIT 29.3 % (42-52); MEAN CORPUSCULAR HGB 30.1 PG (27.0-31.0); MEAN CORPUSCULAR HGB CONC 32.8 G/DL (33.0-37.0); MEAN CORPUSCULAR VOLUME 91.9 FL (80.0-94.0); PLATELET COUNT 266 /CUMM (130-400); RBC DISTRIBUTION WIDTH 14.7 % (11.5-14.5); RED BLOOD CELL CT 3.19 /CUMM (4.70-6.10); WHITE BLOOD CELL COUNT 5.7 /CUMM (4.8-10.8)
--- NOTE | 2017-10-28 08:50 | Cons- Pulmonary ---
General Information and HPI Consulting Request Date of Consult: 10/28/17 Requested By: Talisha Reason for Consult: Exacerbation of COPD History of Present Illness: Patient is a 72-year-old with chronic hypoxic respiratory failure admitted with increased shortness of breath. He's been treated for diffuse pruritic rash associated with eosinophilia. Over the weekend he got increasing shortness of breath CTA failed to show pulmonary embolism pneumonia effusions or congestive heart failure. He has persistent eosinophilia. He denies significant sputum production or hemoptysis. Allergies/Medications Allergies: Coded Allergies: NO KNOWN ALLERGIES (08/21/15) Home Med List: Albuterol Sulfate (Proair Hfa) 90 MCG HFA.AER.AD 2 PUF INH Q4-6 PRN PRN Shortness of breath (Reported) Albuterol Sulfate 2.5 MG/3 ML (0.083 %) VIAL.NEB 1 Vial INH/KIMANI Q4P PRN Shortness of breath (Reported) Allopurinol 300 MG TABLET 0.5 TAB PO DAILY GOUT (Reported) Amiodarone (Cordarone) 200 MG TABLET 1 TAB PO DAILY HEART (Reported) Apixaban (Eliquis) 2.5 MG TABLET 1 TAB PO BID Blood thinner Please complete total 6 weeks of Blood thinner.. Atorvastatin Calcium 40 MG TABLET 1 TAB PO DAILY cholesterol (Reported) Cephalexin (Keflex) 500 MG CAPSULE 1 CAP PO TID prosthetic joint infection ( Reported) Cholecalciferol (Vitamin D3) (Vitamin D) 1,000 UNIT TABLET 1 TAB PO DAILY OSTEOPOROSIS Clobetasol Propionate 0.05 % SOLUTION 1 JO TOP ONCE A WEEK SCALP (Reported) Clobetasol Propionate 0.05 % CREAM..G. 1 JO TOP AD SKIN (Reported) apply to affected area(s) Digoxin 125 MCG TABLET 1 TAB PO DAILY HEART (Reported) Fluticasone/Salmeterol (Advair 250-50 Diskus) 250 MCG-50 MCG/DOSE BLST.W.DEV 1 PUF INH BID Shotness of breath (Reported) Hydrocortisone 2.5 % CREAM..G. 1 JO TOP AD PRN SKIN (Reported) apply to affected area(s) Lisinopril 10 MG TABLET 1 TAB PO DAILY HIGH BLOOD PRESSURE (Reported) Metoprolol Succ XL (Toprol XL) 25 MG TAB 1 TAB PO DAILY heart health ( Reported) Nystatin (Nyamyc) 100,000 UNIT/GRAM POWDER 1 JO TOP PRN GROIN (Reported) Pantoprazole Sodium (Protonix) 20 MG TABLET.DR 2 TAB PO DAILY ACID REFLUX ( Reported) Prednisone 10 MG TABLET 1 TAB PO DAILY COPD (Reported) Rifampin (Rifadin) 300 MG CAPSULE 1 CAP PO BID Septic arthritis Please follow up infectious disease Dr. Lui for further antibiotic course. His contact # [phone] Spironolactone (Aldactone) 25 MG TABLET 1 TAB PO DAILY CHF (Reported) Tiotropium [place] (Spiriva) 18 MCG CAP.W.DEV 1 CAP INH DAILY Shortness of breath (Reported) Triamcinolone Acetonide 0.1 % CREAM..G. 1 JO TOP AD PRN SKIN (Reported) Review of Systems Review of Systems Constitutional: Denies: chills, fever. Cardiovascular: Denies: chest pain, edema. Respiratory: Reports: cough, short of breath, wheezing. Denies: hemoptysis. GI: Denies: abdominal pain, constipation, melena. 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 Uncle (CT at age 40). FH: myocardial infarction SISTER FH: lung cancer FATHER Psychosocial History Who Do You Live With? spouse, 2 daughters, one son, granddaughter and her Services at Home: Oxygen Primary Language: Kittitian Smoking Status: Unknown If Ever Smoked ETOH Use: denies use Illicit Drug Use: denies illicit drug use Functional Ability ADLs Independent: dressing, eating, toileting, bathing. Ambulation: independent IADLs Independent: shopping, housework, finances, food prep, telephone, transportation , medication admin. Exam & Diagnostic Data Last 24 Hrs of Vital Signs/I&O Vital Signs Date Time Temp Pulse Resp B/P B/P Pulse O2 O2 Flow FiO2 Mean Ox Delivery Rate 10/28 0620 98.2 66 18 124/70 95 Nasal Cannula 10/28 0000 Nasal 2.5L Cannula 10/27 2242 Nasal 2.0L Cannula 10/27 2133 98.0 74 20 144/80 93 Nasal 2.5L Cannula 10/27 1714 97.8 78 20 152/68 97 Nasal 2.0L Cannula 10/27 1630 93 Nasal 2.5L Cannula 10/27 1625 98.4 77 19 142/70 94 Nasal 2.5L Cannula 10/27 1443 98.2 74 22 139/73 94 Nasal 2.5L Cannula 10/27 1322 98.0 74 22 146/72 94 Nasal 2.5L Cannula 10/27 1050 97.2 75 22 141/74 96 Nasal 3.0L Cannula 10/27 0858 93 Nasal 2.0L Cannula Intake & Output 10/28 1600 10/28 0800 10/28 0000 Intake Total 235 220 Output Total 700 950 Balance -465 -730 Intake, IV 15 Intake, Oral 220 220 Output, Urine 700 950 Patient 157 lb 176 lb Weight Weight Reported by Patient Measurement Method Oxygen saturation 2.5 L 95% exam of his chest shows diminished breath sounds there are scattered expiratory wheezing cardiac exam shows a regular S1 and S2 without murmurs abdomen is soft nontender there is diffuse erythema over his legs and back there is no edema Last 48 Hrs of Labs/Chacorta: Laboratory Tests 10/28/17 0810: Sodium Pending, Potassium Pending, Chloride Pending, Carbon Dioxide Pending, Anion Gap Pending, BUN Pending, Creatinine Pending, BUN/Creatinine Ratio Pending , CBC w Diff Pending, WBC Pending, RBC Pending, Hgb Pending, Hct Pending, MCV Pending, MCH Pending, MCHC Pending, RDW Pending, Plt Count Pending, MPV Pending 10/27/17 2232: Urine Color YEL, Urine Clarity CLEAR, Urine pH 6.0, Ur Specific [place] 1.010, Urine Protein NEG, Urine Ketones NEG, Urine Nitrite NEG, Urine Bilirubin NEG, Urine Urobilinogen 0.2, Ur Leukocyte Esterase NEG, Ur Microscopic EXAM NOT REQUIRED, Urine Hemoglobin NEG, Urine Glucose NEG 10/27/17 1415: pH 7.43, pCO2 42, pO2 73 L, HCO3 28, ABG O2 Sat (Measured) 93.0 L, Carboxyhemoglobin 1.2 L, O2 Concentration % 3L, O2 Delivery Method N/C, Phlebotomy Draw Site LEFT RADIAL 10/27/17 0907: D-Dimer High Sensitivty 973 H 10/27/17 0811: Anion Gap 10, Estimated GFR 54 L, BUN/Creatinine Ratio 18.5, Glucose 99, Calcium 9.3, Total Bilirubin 0.4, AST 18, ALT 23, Alkaline Phosphatase 55, Troponin I < 0.01, Ebu-X-Yznzwhjyqow Pept 2500 H, Total Protein 6.3, Albumin 3.7, Globulin 2.6, Albumin/Globulin Ratio 1.4, TSH 8.000 H, Free T4 2.24, CBC w Diff MAN DIFF ORDERED, RBC 3.49 L, MCV 91.5, MCH 29.9, MCHC 32.7 L, RDW 15.3 H, MPV 7.9, Gran % 36.1 L, Lymphocytes % 14.4 L, Monocytes % 10.8 H, Eosinophils % 38.4 H, Basophils % 0.3, Absolute Granulocytes 3.4, Absolute Lymphocytes 1.3, Absolute Monocytes 1.0 H, Absolute Eosinophils 3.6, Absolute Basophils 0, Platelet Estimate VERIFIED BY SMEAR, Poikilocytosis 1+, Anisocytosis 1+, Ovalocytes 1+, Stomatocytes 1+, Digoxin 1.5 Microbiology 10/27 1623 NASOPHARYN: Influenza Virus A & B Rapid Smear - COMP Assessment/Plan Impression/Plan: 72-year-old with severe COPD chronic hypoxic respiratory failure admitted with increasing shortness of breath. He has history of anticoagulation for cardiac arrhythmias and congestive heart failure and noted his BNP is 2500. The significance of his rash and eosinophilia is at this point uncertain and dermatologic follow-up would be appropriate. Recommendations: Continue Zithromax and IV steroids. Obtain sputum C&S. Nebulized bronchodilators. Dermatology follow-up for diffuse rash and eosinophilia. Consult Acknowledgment - Thank you for your consult request.
[2017-10-28 09:15] LABS: GRANULOCYTE % 75.3 % (42.2-75.2)
--- NOTE | 2017-10-28 14:23 | PN- Att Addend ---
Attending Addendum Attending Brief Note Patient looking and feeling better breathing better, Vital signs are stable, no fever better air entry. Aprreciate dr Schneider imput and recommendations, will continue IV steroids today antibiotics and respiratory theraphy. Skin about the same, needs to follow with dermatolopgist. Intake & Output 10/28 1600 10/28 0400 10/27 1600 10/27 0400 10/26 1600 10/26 0400 Intake Total 235 220 0 Output Total 700 950 Balance -465 -730 0 Intake, IV 15 Intake, Oral 220 220 0 Output, Urine 700 950 Patient 157 lb 176 lb 176 lb Weight Weight Reported by Patient Reported by Patient Measurement Method Current Medications Sig/Luis Start time Last Medication Dose Route Stop Time Status Admin Acetaminophen 650 MG Q6P PRN 10/27 2115 AC PO Albuterol Sulfate 3 ML TID 10/28 1000 AC 10/28 INH 1400 Allopurinol 150 MG DAILY 10/27 1403 AC 10/28 PO 1044 Amiodarone HCl 200 MG DAILY 10/27 1327 AC 10/28 PO 0957 Atorvastatin Calcium 40 MG DAILY 10/27 1328 AC 10/28 PO 0957 Azithromycin 500 MG DAILY 10/28 1000 AC 10/28 PO 0959 Cephalexin 500 MG TID 10/27 1600 AC 10/28 PO 0958 Cholecalciferol 1,000 IU DAILY 10/27 1328 AC 10/28 PO 0958 Digoxin 0.125 MG DAILY 10/27 1328 AC 10/28 PO 0957 Diphenhydramine HCl 25 MG AT BEDTIME 10/27 2200 AC 10/27 IV 2132 Furosemide 20 MG ONCE ONE 10/27 1730 DC 10/27 PO 10/27 1731 1830 Hydrocodone Bitart/ 1 TAB Q6P PRN 10/27 2115 AC Acetaminophen PO Lisinopril 10 MG DAILY 10/27 1328 AC 10/28 PO 0957 Methylprednisolone 40 MG Q8H 10/27 1700 DC IV Methylprednisolone 40 MG Q8H 10/27 1700 AC 10/28 IV 0834 Metoprolol Succinate 25 MG DAILY 10/27 1403 AC 10/28 PO 0957 Omeprazole 0 .STK-MED ONE 10/27 1445 DC PO Omeprazole 40 MG DAILY AC 10/27 1330 AC 10/28 PO 0624 Rifampin 300 MG BID 10/27 1329 AC 10/28 PO 0957 Spironolactone 25 MG DAILY 10/27 1329 AC 10/28 PO 0955 Laboratory Tests 10/28/17 0810: Anion Gap 12, Estimated GFR 50 L, BUN/Creatinine Ratio 19.3, CBC w Diff NO MAN DIFF REQ, RBC 3.19 L, MCV 91.9, MCH 30.1, MCHC 32.8 L, RDW 14.7 H, MPV 8.0, Gran % 75.3 H, Lymphocytes % 12.1 L, Monocytes % 10.2 H, Eosinophils % 1.8, Basophils % 0.6, Absolute Granulocytes 4.3, Absolute Lymphocytes 0.7 L, Absolute Monocytes 0.6, Absolute Eosinophils 0.1, Absolute Basophils 0 10/27/17 2232: Urine Color YEL, Urine Clarity CLEAR, Urine pH 6.0, Ur Specific [place] 1.010, Urine Protein NEG, Urine Ketones NEG, Urine Nitrite NEG, Urine Bilirubin NEG, Urine Urobilinogen 0.2, Ur Leukocyte Esterase NEG, Ur Microscopic EXAM NOT REQUIRED, Urine Hemoglobin NEG, Urine Glucose NEG 10/27/17 1415: pH 7.43, pCO2 42, pO2 73 L, HCO3 28, ABG O2 Sat (Measured) 93.0 L, Carboxyhemoglobin 1.2 L, O2 Concentration % 3L, O2 Delivery Method N/C, Phlebotomy Draw Site LEFT RADIAL 10/27/17 0907: D-Dimer High Sensitivty 973 H 10/27/17 0811: Anion Gap 10, Estimated GFR 54 L, BUN/Creatinine Ratio 18.5, Glucose 99, Calcium 9.3, Total Bilirubin 0.4, AST 18, ALT 23, Alkaline Phosphatase 55, Troponin I < 0.01, Ygg-Q-Opmbpbvcjyc Pept 2500 H, Total Protein 6.3, Albumin 3.7, Globulin 2.6, Albumin/Globulin Ratio 1.4, TSH 8.000 H, Free T4 2.24, CBC w Diff MAN DIFF ORDERED, RBC 3.49 L, MCV 91.5, MCH 29.9, MCHC 32.7 L, RDW 15.3 H, MPV 7.9, Gran % 36.1 L, Lymphocytes % 14.4 L, Monocytes % 10.8 H, Eosinophils % 38.4 H, Basophils % 0.3, Absolute Granulocytes 3.4, Absolute Lymphocytes 1.3, Absolute Monocytes 1.0 H, Absolute Eosinophils 3.6, Absolute Basophils 0, Platelet Estimate VERIFIED BY SMEAR, Poikilocytosis 1+, Anisocytosis 1+, Ovalocytes 1+, Stomatocytes 1+, Digoxin 1.5 Microbiology 10/29 955 LOWER RESP: Respiratory Culture - ORD 10/29 955 LOWER RESP: Gram Stain - ORD 10/27 162 NASOPHARYN: Influenza Virus A & B Rapid Smear - COMP Microbiology 10/29 955 LOWER RESP: Respiratory Culture - ORD 10/29 955 LOWER RESP: Gram Stain - ORD 10/27 162 NASOPHARYN: Influenza Virus A & B Rapid Smear - COMP Vital Signs Date Time Temp Pulse Resp B/P B/P Pulse O2 O2 Flow FiO2 Mean Ox Delivery Rate 10/28 0957 70 10/28 0957 70 124/70 10/28 0957 70 124/70 10/28 0957 70 124/70 10/28 0900 93 Nasal 3.0L Cannula 10/28 0800 95 Nasal 2.5L Cannula 10/28 0620 98.2 66 18 124/70 95 Nasal Cannula 10/28 0000 Nasal 2.5L Cannula 10/27 2242 Nasal 2.0L Cannula 10/27 2133 98.0 74 20 144/80 93 Nasal 2.5L Cannula 10/27 1714 97.8 78 20 152/68 97 Nasal 2.0L Cannula 10/27 1630 93 Nasal 2.5L Cannula 10/27 1625 98.4 77 19 142/70 94 Nasal 2.5L Cannula 10/27 1443 98.2 74 22 139/73 94 Nasal 2.5L Cannula
[2017-10-28 14:53] VITALS: BP 118/52
[2017-10-28 22:07] VITALS: BP 112/56
[2017-10-29 06:45] VITALS: BP 120/60
--- NOTE | 2017-10-29 07:14 | PN- Housestaff ---
Subjective Follow-up For: COPD Exacerbation Subjective: Patient seen and examined. States that he is feeling better. Was able to ambulate to the bathroom with less difficulty. Reports no cough or SOB at rest. Denies and fever, chills, nausea or vomiting Review of Systems Constitutional: Reports: see HPI. Objective Last 24 Hrs of Vital Signs/I&O Vital Signs Date Time Temp Pulse Resp B/P B/P Pulse O2 O2 Flow FiO2 Mean Ox Delivery Rate 10/29 1411 99.1 80 18 130/60 97 Nasal 2.0L Cannula 10/29 0833 94 Nasal 2.0L Cannula 10/29 0802 68 120/60 10/29 0801 68 120/60 10/29 0801 68 120/60 10/29 0801 68 120/60 10/29 0800 Nasal 2.5L Cannula 10/29 0645 98.6 76 20 120/60 91 Nasal 2.0L Cannula 10/29 0000 Nasal 2.5L Cannula 10/28 2207 98.6 65 20 112/56 94 Nasal Cannula 10/28 2145 98 Nasal 3.0L Cannula Intake & Output 10/29 1600 10/29 0800 10/29 0000 Intake Total 120 120 Output Total 700 Balance -580 120 Intake, IV 20 20 Intake, Oral 100 100 Output, Urine 700 Physical Exam General Appearance: Alert, Oriented X3, Cooperative HEENT: Mucous Membr. moist/pink Cardiovascular: Normal S1, Normal S2 Lungs: Diffuse Wheezing. Incresed air movement compared to previous exam Abdomen: Normal Bowel Sounds, Soft, No Tenderness Neurological: Normal Gait, Normal Speech Extremities: No Clubbing, No Cyanosis, No Edema Current Medications: Current Medications Sig/Luis Start time Last Medication Dose Route Stop Time Status Admin Acetaminophen 650 MG Q6P PRN 10/27 2115 AC PO Albuterol Sulfate 3 ML TID 10/28 1000 AC 10/29 INH 1336 Allopurinol 150 MG DAILY 10/27 1403 AC 10/29 PO 0802 Amiodarone HCl 200 MG DAILY 10/27 1327 AC 10/29 PO 0802 Apixaban 2.5 MG DAILY 10/28 1448 AC 10/29 PO 0802 Atorvastatin Calcium 40 MG DAILY 10/27 1328 AC 10/29 PO 0801 Azithromycin 500 MG DAILY 10/28 1000 AC 10/29 PO 0801 Budesonide/ 2 PUF BID 10/29 1000 AC 10/29 Formoterol Fumarate INH 1029 Cephalexin 500 MG TID 10/27 1600 AC 10/29 PO 1604 Cholecalciferol 1,000 IU DAILY 10/27 1328 AC 10/29 PO 0801 Digoxin 0.125 MG DAILY 10/27 1328 AC 10/29 PO 0801 Diphenhydramine HCl 25 MG ONCE ONE 10/29 0115 DC 10/29 PO 10/29 0116 0118 Diphenhydramine HCl 25 MG AT BEDTIME 10/27 2200 AC 10/28 IV 2102 Hydrocodone Bitart/ 1 TAB Q6P PRN 10/27 2115 AC Acetaminophen PO Hydroxyzine HCl 25 MG ONCE ONE 10/29 0800 CAN PO 10/29 0801 Hydroxyzine HCl 10 MG ONCE ONE 10/29 0800 DC 10/29 PO 10/29 0801 0850 Lisinopril 10 MG DAILY 10/27 1328 AC 10/29 PO 0801 Methylprednisolone 40 MG DAILY 10/29 1000 AC IV Methylprednisolone 40 MG Q8H 10/27 1700 DC 10/29 IV 0759 Metoprolol Succinate 25 MG DAILY 10/27 1403 AC 10/29 PO 0801 Omeprazole 40 MG DAILY AC 10/27 1330 AC 10/29 PO 0548 Patient Medication 1 ED ONE ONE 10/29 1630 DC Teaching ED 10/29 1631 Rifampin 300 MG BID 10/27 1329 AC 10/29 PO 0801 Spironolactone 25 MG DAILY 10/27 1329 AC 10/29 PO 0802 Tiotropium [place] 1 PUF DAILY 10/29 1000 AC 10/29 INH 1030 Last 24 Hrs of Lab/Chacorta Results Last 24 Hrs of Labs/Mics: Laboratory Tests 10/29/17 0755: Anion Gap 8, Estimated GFR 50 L, BUN/Creatinine Ratio 23.6 Microbiology 10/29 1155 LOWER RESP: Respiratory Culture - RES 10/29 1155 LOWER RESP: Gram Stain - RES Assessment/Plan Assessment: Patient is a 72 YO M with PMH of DM, HTN, A.fib on eliquis, CHF, chronic renal failure, steroid dependent COPD on 2L oxygen, psoriasis, gout maintained on Allopurinol presented to [facility] with with progressive worsening of shortness of breath and rash for the past few days. He started experiencing rash all over his right lower extremity and back for the past 3 weeks, underwent evaluation by hospice chaplain and started on Benadryl and steroid cream apparently. VS in the ER are significant for Tmax of 98.6, heart rate 85, blood pressure 129/74 mmHg, saturation 93% on room air. Labs returned white count of 9.3, H&H 10/15.3, chem panel sodium 139, potassium 4.4, BUN/creatinine 24/1.3, GFR 54, proBNP 25,000 TSH 83 with free T4 of 2.2. D-dimer 973. Dig level 1.5. ABG did show 7.43/42/ 73/28. Flu swab negative. Imaging ruled out PE with CT angiogram. CT did show centrilobular emphysema with biapical paraseptal pleural-based reticular opacities. No suspicious pulmonary nodules. Groundglass nodule in the right middle lobe concerning for airspace disease. Aneurysmal dilatation of 4 cm. Hepatic and renal cysts. Gynecomastia. Admitted to general medicine floor for COPD exacerbation and eczematous rash Problem list #COPD exacerbation #Chronic Systolic Heart Failure Last Echo Estimated EF 35-40%. #Extensive rash - presumably eczematous #Recent Septic joint with MSSA currently on 2 antibiotics -Keflex and rifampin #Hypertension #Atrial fibrillation on Eliquis and metoprolol succinate #CKD Stage III #Gout on allopurinol #?DM COPD exacerbation Patient had a history of steroid-dependent COPD on 2 L oxygen requirement at baseline. He follows Dr. Younger. He denies any recent upper respiratory infection/ongoing chest pain recently. He is reportedly complicated with his medications but however reports being on Eliquis 2.5 mg once a day. He is ruled out for PE by CT and should the ER. Physical examination is significant for diffuse wheezing all over the lungs. * A single dose of IV methylprednisolone quadrant for given in the ER * Continue IV steroids and azithromycin, Reduced to BID, will likely dc on prednisone 10/30/17 * TRC/nebulizers * LRC culture * Incentive Spirometer #Chronic Systolic Heart Failure Last Echo Estimated EF 35-40%. Continue Home medications, Spironolacotone #Extensive eczematous rash with elevated eosinophils - 38% Patient did have hives during his previous admission for unclear reasons. He started experiencing this rash around 3 weeks ago, went to a hospice chaplain where he was provided with antihistaminic and steroid creams. Despite treatment the rash got progressively worse to the extent his skin started breaking down due to severe scratching. He had 38% of eosinophilics in the differential. * A single dose of IV Benadryl given in ER * Continue IV Benadryl * IV steroids help with rash as well * Follow up with Dr Romano as an outpatient. #Recent Septic joint with MSSA currently on 2 antibiotics -Keflex and rifampin Patient was admitted recently to [facility] with MSSA septic joint. Received 6 weeks of IV oxacillin followed by oral keflex and rifampin for the next 6 months (till february). following the patient. * Continue keflex TID and rifampin BID #Hypertension Continue lisinopril #Atrial fibrillation on Eliquis and metoprolol succinate On Eliquis 2.5mg daily (confirmed this with patient, [place] pharmacy was not able to confirm the correct dose, stated they last filled 5 mg BID in January 2017) Continue metoprolol succinate 25mg daily. #CKD satge III Continue Lisinopril BEP in AM #Gout On allopurinol #?DM Will monitor BS TID/HS. If sugars elevated, begin SS. DVT prophylaxis SC heparin Code status DNR/DNI Problem List: 1. COPD exacerbation Pain Ratin Pain Location: No Pain Pain Goal: Remain pain free Pain Plan: Tylenol PRN Tomorrow's Labs & Rationales: No Labs - possible dc
--- NOTE | 2017-10-29 08:43 | PN- Pulmonary ---
Subjective HPI/Critical Care Issues: Patient shortness breath is improved. He is comfortable ambulating in the room. Objective Current Medications: Current Medications Sig/Luis Start time Last Medication Dose Route Stop Time Status Admin Acetaminophen 650 MG Q6P PRN 10/27 2115 AC PO Albuterol Sulfate 3 ML TID 10/28 1000 AC 10/29 INH 0829 Allopurinol 150 MG DAILY 10/27 1403 AC 10/29 PO 0802 Amiodarone HCl 200 MG DAILY 10/27 1327 AC 10/29 PO 0802 Apixaban 2.5 MG DAILY 10/28 1448 AC 10/29 PO 0802 Atorvastatin Calcium 40 MG DAILY 10/27 1328 AC 10/29 PO 0801 Azithromycin 500 MG DAILY 10/28 1000 AC 10/29 PO 0801 Cephalexin 500 MG TID 10/27 1600 AC 10/29 PO 0801 Cholecalciferol 1,000 IU DAILY 10/27 1328 AC 10/29 PO 0801 Digoxin 0.125 MG DAILY 10/27 1328 AC 10/29 PO 0801 Diphenhydramine HCl 25 MG ONCE ONE 10/29 0115 DC 10/29 PO 10/29 0116 0118 Diphenhydramine HCl 25 MG AT BEDTIME 10/27 2200 AC 10/28 IV 2102 Hydrocodone Bitart/ 1 TAB Q6P PRN 10/27 2115 AC Acetaminophen PO Hydroxyzine HCl 25 MG ONCE ONE 10/29 0800 CAN PO 10/29 0801 Hydroxyzine HCl 10 MG ONCE ONE 10/29 0800 DC PO 10/29 0801 Lisinopril 10 MG DAILY 10/27 1328 AC 10/29 PO 0801 Methylprednisolone 40 MG Q8H 10/27 1700 AC 10/29 IV 0759 Metoprolol Succinate 25 MG DAILY 10/27 1403 AC 10/29 PO 0801 Omeprazole 40 MG DAILY AC 10/27 1330 AC 10/29 PO 0548 Rifampin 300 MG BID 10/27 1329 AC 10/29 PO 0801 Spironolactone 25 MG DAILY 10/27 1329 AC 10/29 PO 0802 Vital Signs & I&O Last 24 Hrs of Vitals and I&O: Vital Signs Date Time Temp Pulse Resp B/P B/P Pulse O2 O2 Flow FiO2 Mean Ox Delivery Rate 10/29 0833 94 Nasal 2.0L Cannula 10/29 0802 68 120/60 10/29 0801 68 120/60 / 0801 68 120/60 10/29 0801 68 120/60 / 0800 Nasal 2.5L Cannula / 0645 98.6 76 20 120/60 91 Nasal 2.0L Cannula 10/29 0000 Nasal 2.5L Cannula 10/28 2207 98.6 65 20 112/56 94 Nasal Cannula 10/28 2145 98 Nasal 3.0L Cannula 10/28 1453 98.3 69 20 118/52 97 10/28 0957 70 10/28 0957 70 124/70 10/28 0957 70 124/70 10/28 0957 70 124/70 10/28 0900 93 Nasal 3.0L Cannula Intake & Output 10/29 1600 10/29 0800 10/29 0000 Intake Total 120 120 Output Total 700 Balance -580 120 Intake, IV 20 20 Intake, Oral 100 100 Output, Urine 700 Oxygen saturation 2 L 94% exam of his chest shows diminished breath sounds are no wheezes cardiac exam shows regular S1 and S2 without murmurs Impression/Plan Impression/Plan Impression/Plan: 72-year-old admitted with increasing shortness of breath secondary to exacerbation of COPD. Shortness of breath is improved Recommendations: Complete course of Zithromax. Decrease Solu-Medrol to once daily with expectation for oral prednisone tomorrow and possible discharge.
--- NOTE | 2017-10-29 09:21 | PN- Att Addend ---
Attending Addendum Attending Brief Note Overall better from his COPD exacerbation still a little short of breath when going to the bathroom signs are stable no fever but better air entry no other major changes and was switched to by mouth steroids today, is stable in a.m. then start disposition plans for patient to go home Intake & Output 10/29 1600 10/29 0400 10/28 1600 10/28 0400 10/27 1600 10/27 0400 Intake Total 804 906 9974 220 0 Output Total 700 700 950 Balance -580 120 735 -730 0 Intake, IV 20 20 15 Intake, Oral 621 868 2327 220 0 Output, Urine 700 700 950 Patient 157 lb 176 lb 176 lb Weight Weight Reported by Patient Reported by Patient Measurement Method Current Medications Sig/Luis Start time Last Medication Dose Route Stop Time Status Admin Acetaminophen 650 MG Q6P PRN 10/27 2115 AC PO Albuterol Sulfate 3 ML TID 10/28 1000 AC 10/29 INH 0829 Allopurinol 150 MG DAILY 10/27 1403 AC 10/29 PO 0802 Amiodarone HCl 200 MG DAILY 10/27 1327 AC 10/29 PO 0802 Apixaban 2.5 MG DAILY 10/28 1448 AC 10/29 PO 0802 Atorvastatin Calcium 40 MG DAILY 10/27 1328 AC 10/29 PO 0801 Azithromycin 500 MG DAILY 10/28 1000 AC 10/29 PO 0801 Cephalexin 500 MG TID 10/27 1600 AC 10/29 PO 0801 Cholecalciferol 1,000 IU DAILY 10/27 1328 AC 10/29 PO 0801 Digoxin 0.125 MG DAILY 10/27 1328 AC 10/29 PO 0801 Diphenhydramine HCl 25 MG ONCE ONE 10/29 0115 DC 10/29 PO 10/29 0116 0118 Diphenhydramine HCl 25 MG AT BEDTIME 10/27 2200 AC 10/28 IV 2102 Hydrocodone Bitart/ 1 TAB Q6P PRN 10/27 2115 AC Acetaminophen PO Hydroxyzine HCl 25 MG ONCE ONE 10/29 0800 CAN PO 10/29 0801 Hydroxyzine HCl 10 MG ONCE ONE 10/29 0800 DC 10/29 PO 10/29 0801 0850 Lisinopril 10 MG DAILY 10/27 1328 AC 10/29 PO 0801 Methylprednisolone 40 MG Q8H 10/27 1700 AC 10/29 IV 0759 Metoprolol Succinate 25 MG DAILY 10/27 1403 10/29 PO 0801 Omeprazole 40 MG DAILY AC 10/27 1330 10/29 PO 0548 Rifampin 300 MG BID 10/27 132 10/29 PO 0801 Spironolactone 25 MG DAILY 10/27 1329 10/29 PO 0802 Laboratory Tests 10/29/17 0755: Anion Gap 8, Estimated GFR 50 L, BUN/Creatinine Ratio 23.6 10/28/17 0810: Anion Gap 12, Estimated GFR 50 L, BUN/Creatinine Ratio 19.3, CBC w Diff NO MAN DIFF REQ, RBC 3.19 L, MCV 91.9, MCH 30.1, MCHC 32.8 L, RDW 14.7 H, MPV 8.0, Gran % 75.3 H, Lymphocytes % 12.1 L, Monocytes % 10.2 H, Eosinophils % 1.8, Basophils % 0.6, Absolute Granulocytes 4.3, Absolute Lymphocytes 0.7 L, Absolute Monocytes 0.6, Absolute Eosinophils 0.1, Absolute Basophils 0 10/27/172: Urine Color YEL, Urine Clarity CLEAR, Urine pH 6.0, Ur Specific [place] 1.010, Urine Protein NEG, Urine Ketones NEG, Urine Nitrite NEG, Urine Bilirubin NEG, Urine Urobilinogen 0.2, Ur Leukocyte Esterase NEG, Ur Microscopic EXAM NOT REQUIRED, Urine Hemoglobin NEG, Urine Glucose NEG 10/27/17 1415: pH 7.43, pCO2 42, pO2 73 L, HCO3 28, ABG O2 Sat (Measured) 93.0 L, Carboxyhemoglobin 1.2 L, O2 Concentration % 3L, O2 Delivery Method N/C, Phlebotomy Draw Site LEFT RADIAL 10/27/17 0907: D-Dimer High Sensitivty 973 H 10/27/17 0811: Anion Gap 10, Estimated GFR 54 L, BUN/Creatinine Ratio 18.5, Glucose 99, Calcium 9.3, Total Bilirubin 0.4, AST 18, ALT 23, Alkaline Phosphatase 55, Troponin I < 0.01, Erk-M-Msszggcfiwc Pept 2500 H, Total Protein 6.3, Albumin 3.7, Globulin 2.6, Albumin/Globulin Ratio 1.4, TSH 8.000 H, Free T4 2.24, CBC w Diff MAN DIFF ORDERED, RBC 3.49 L, MCV 91.5, MCH 29.9, MCHC 32.7 L, RDW 15.3 H, MPV 7.9, Gran % 36.1 L, Lymphocytes % 14.4 L, Monocytes % 10.8 H, Eosinophils % 38.4 H, Basophils % 0.3, Absolute Granulocytes 3.4, Absolute Lymphocytes 1.3, Absolute Monocytes 1.0 H, Absolute Eosinophils 3.6, Absolute Basophils 0, Platelet Estimate VERIFIED BY SMEAR, Poikilocytosis 1+, Anisocytosis 1+, Ovalocytes 1+, Stomatocytes 1+, Digoxin 1.5 Microbiology 10/29 955 LOWER RESP: Respiratory Culture - CAN Cancelled: NEED NEW ORDERS FOR TODAY SPOKE WITH [place] 10/29 955 LOWER RESP: Gram Stain - CAN Cancelled: NEED NEW ORDERS FOR TODAY SPOKE WITH [place] 10/27 1623 NASOPHARYN: Influenza Virus A & B Rapid Smear - COMP Microbiology 10/29 955 LOWER RESP: Respiratory Culture - CAN Cancelled: NEED NEW ORDERS FOR TODAY SPOKE WITH [place] 10/29 955 LOWER RESP: Gram Stain - CAN Cancelled: NEED NEW ORDERS FOR TODAY SPOKE WITH [place] 10/27 1623 NASOPHARYN: Influenza Virus A & B Rapid Smear - COMP Vital Signs Date Time Temp Pulse Resp B/P B/P Pulse O2 O2 Flow FiO2 Mean Ox Delivery Rate 10/29 0833 94 Nasal 2.0L Cannula 10/29 0802 68 120/60 10/29 0801 68 120/60 10/29 0801 68 120/60 10/29 0801 68 120/60 10/29 0800 Nasal 2.5L Cannula 10/29 0645 98.6 76 20 120/60 91 Nasal 2.0L Cannula 10/29 0000 Nasal 2.5L Cannula 10/28 2207 98.6 65 20 112/56 94 Nasal Cannula 10/28 2145 98 Nasal 3.0L Cannula 10/28 1453 98.3 69 20 118/52 97 02 0957 70 10/28 0957 70 124/70 10/28 0957 70 124/70 10/28 956 70 124
[2017-10-29 14:11] VITALS: BP 130/60
--- NOTE | 2017-10-29 15:27 | Patient Discharge Instructions ---
Discharge Instructions General Discharge Information You were seen/treated for: COPD Exacerbation Special Instructions: Please follow up with your PCP in 3-5 days. Please follow up with the dematologist and ID doctor in 7-10 days. We stopped your Allopurinol due to the rash. Your Eliquis dose was increased to 5 mg BID. Please follow up with the jigmaker in seven days. If you experience any bleeding as a result of this, please call your PCP. Please take medication as prescribed. Diet Recommended Diet: Heart Healthy Acute Coronary Syndrome Inclusion Criteria At DC or during hospital stay patient has or had the following: ACS DIAGNOSIS No Discharge Core Measures Meds if any: Prescribed or Continued at Discharge Meds if any: NOT Prescribed or Continued at Discharge Congestive Heart Failure Inclusion Criteria At DC or during hospital stay patient has or had the following: CHF DIAGNOSIS No Discharge Core Measures Meds if any: Prescribed or Continued at Discharge Meds if any: NOT Prescribed or Continued at Discharge Cerebrovascular accident Inclusion Criteria At DC or during hospital stay patient has or had the following: CVA/TIA Diagnosis No Discharge Core Measures Meds if any: Prescribed or Continued at Discharge Meds if any: NOT Prescribed or Continued at Discharge Venous thromboembolism Inclusion Criteria VTE Diagnosis No VTE Type NONE VTE Confirmed by (Test) NONE Discharge Core Measures - Per Current guidelines, there needs to be overlap - treatment for the first 5 days of Warfarin therapy. - If discharged on Warfarin prior to 5 days of - overlap therapy, the patient will need to be - assessed for post discharge needs including - *Post discharge parental anticoagulation - *Warfarin and/or parental anticoagulation education - *Follow up date to check INR post discharge At least 5 days overlap therapy as Inpatient No Meds if any: Prescribed or Continued at Discharge Note: Overlap Therapy is Warfarin and Anticoagulant Meds if any: NOT Prescribed or Continued at Discharge
[2017-10-29] MEDS ORDERED: ELIQUIS2.5 M1 PO (17:17)
[2017-10-29] MEDS ORDERED: PREDNISONE10 M2 PO (20:55)
[2017-10-29 22:49] VITALS: BP 132/60
[2017-10-30 06:30] VITALS: BP 143/70
--- NOTE | 2017-10-30 07:10 | PN- Housestaff ---
Deborah MENON,[facility] 10/30/17 07: Subjective Follow-up For: COPD Exacerbation Subjective: Mr Welch was seen and examined this morning. Resting comfortably in bed. Denies any acute issues overnight and was able to get some sleep. States that his breathing is improved and was able to ambulate to the bathroom with less difficulty. Denies any shortness of breath or cough. Denies any fever, chills, nausea, vomiting. His rash is improved with oral agents (atarax), although is questioning whether rash may have been caused by antibiotics. Review of Systems Constitutional: Reports: see HPI. Objective Last 24 Hrs of Vital Signs/I&O Vital Signs Date Time Temp Pulse Resp B/P B/P Pulse O2 O2 Flow FiO2 Mean Ox Delivery Rate 10/30 0826 92 Nasal 2.0L Cannula 10/30 0811 87 10/30 0810 87 140/70 10/30 0800 Nasal 2.0L Cannula 10/30 0630 98.4 65 20 143/70 91 10/30 0000 94 Nasal 2.0L Cannula 10/29 2249 98.1 64 18 132/60 94 Room Air 10/29 1947 94 Room Air 10/29 1600 97 Nasal 2.5L Cannula 10/29 1411 99.1 80 18 130/60 97 Nasal 2.0L Cannula Intake & Output 10/30 1600 10/30 0800 10/30 0000 Intake Total 500 400 Output Total Balance 500 400 Intake, Oral 500 400 Number 1 Bowel Movements Physical Exam General Appearance: Alert, Oriented X3, Cooperative Skin Temp/Moisture Exam: Warm/Dry Sepsis Skin Exam (color): Normal for Ethnicity HEENT: Mucous Membr. moist/pink Cardiovascular: Regular Rate, Normal S1, Normal S2 Lungs: Clear to Auscultation Abdomen: Normal Bowel Sounds, Soft, No Tenderness Current Medications: Current Medications Sig/Luis Start time Last Medication Dose Route Stop Time Status Admin Acetaminophen 650 MG Q6P PRN 10/27 2115 AC PO Albuterol Sulfate 3 ML TID 10/28 1000 AC 10/30 INH 0825 Allopurinol 150 MG DAILY 10/27 1403 AC 10/30 PO 0809 Amiodarone HCl 200 MG DAILY 10/27 1327 AC 10/30 PO 0811 Apixaban 2.5 MG ONCE ONE 10/30 1400 UNVr PO 10/30 1401 Apixaban 2.5 MG DAILY 10/28 1448 AC 10/30 PO 0811 Atorvastatin Calcium 40 MG DAILY 10/27 1328 AC 10/30 PO 0810 Azithromycin 500 MG DAILY 10/28 1000 AC 10/30 PO 0809 Budesonide/ 2 PUF BID 10/29 1000 AC 10/30 Formoterol Fumarate INH 0813 Cephalexin 500 MG TID 10/27 1600 AC 10/30 PO 0811 Cholecalciferol 1,000 IU DAILY 10/27 1328 AC 10/30 PO 0810 Digoxin 0.125 MG DAILY 10/27 1328 AC 10/30 PO 0811 Diphenhydramine HCl 25 MG AT BEDTIME 10/27 2200 AC 10/29 IV 2124 Hydrocodone Bitart/ 1 TAB Q6P PRN 10/27 2115 AC Acetaminophen PO Hydroxyzine HCl 10 MG TID 10/30 1000 AC 10/30 PO 0955 Hydroxyzine HCl 10 MG ONCE ONE 10/30 1999 DC 10/29 PO 10/29 Lisinopril 10 MG DAILY 10/27 1328 AC 10/30 PO 0810 Methylprednisolone 40 MG DAILY 10/29 1000 DC 10/30 IV 0809 Metoprolol Succinate 25 MG DAILY 10/27 1403 AC 10/30 PO 0810 Omeprazole 40 MG DAILY AC 10/27 1330 AC 10/30 PO 0545 Patient Medication 1 ED ONE ONE 10/30 1100 DC 10/30 Teaching ED 10/30 1101 1206 Patient Medication 1 ED ONE ONE 10/29 1630 [place] Teaching ED 10/29 1631 Prednisone 40 MG DAILY 10/31 1000 AC PO Rifampin 300 MG BID 10/27 1329 AC 10/30 PO 0810 Spironolactone 25 MG DAILY 10/27 1329 AC 10/30 PO 0809 Tiotropium [place] 1 PUF DAILY 10/29 1000 AC 10/30 INH 0815 Assessment/Plan Assessment: Patient is a 72 YO M with PMH of DM, HTN, A.fib on eliquis, CHF, chronic renal failure, 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 He started experiencing rash all over his right lower extremity and back for the past 3 weeks, underwent evaluation by billing control clerk and started on Benadryl and steroid cream apparently. VS in the ER are significant for Tmax of 98.6, heart rate 85, blood pressure 129/74 mmHg, saturation 93% on room air. Labs returned white count of 9.3, H&H 10/15.3, chem panel sodium 139, potassium 4.4, BUN/creatinine 24/1.3, GFR 54, proBNP 25,000 TSH 83 with free T4 of 2.2. D-dimer 973. Dig level 1.5. ABG did show 7.43/42/ 73/28. Flu swab negative. Imaging ruled out PE with CT angiogram. CT did show centrilobular emphysema with biapical paraseptal pleural-based reticular opacities. No suspicious pulmonary nodules. Groundglass nodule in the right middle lobe concerning for airspace disease. Aneurysmal dilatation of 4 cm. Hepatic and renal cysts. Gynecomastia. Admitted to general medicine floor for COPD exacerbation and eczematous rash Problem list #COPD exacerbation #Chronic Systolic Heart Failure Last Echo Estimated EF 35-40%. #Extensive rash - presumably eczematous #Recent Septic joint with MSSA currently on 2 antibiotics -Keflex and rifampin #Hypertension #Atrial fibrillation on Eliquis and metoprolol succinate #CKD Stage III #Gout on allopurinol #?DM COPD exacerbation Patient had a history of steroid-dependent COPD on 2 L oxygen requirement at baseline. He follows Dr. Younger. He denies any recent upper respiratory infection/ongoing chest pain recently. He is reportedly complicated with his medications but however reports being on Eliquis 2.5 mg once a day. He is ruled out for PE by CT and should the ER. Physical examination is significant for diffuse wheezing all over the lungs. * A single dose of IV methylprednisolone quadrant for given in the ER * Continue IV steroids and azithromycin, Reduced to BID, will likely dc on prednisone 10/30/17. Ten day taper given. * TRC/nebulizers * [facility] culture * Incentive Spirometer #Chronic Systolic Heart Failure Last Echo Estimated EF 35-40%. Continue Home medications, Spironolacotone #Extensive eczematous rash with elevated eosinophils - 38% Patient did have hives during his previous admission for unclear reasons. He started experiencing this rash around 3 weeks ago, went to a billing control clerk where he was provided with antihistaminic and steroid creams. Despite treatment the rash got progressively worse to the extent his skin started breaking down due to severe scratching. He had 38% of eosinophilics in the differential. * A single dose of IV Benadryl given in ER * Continue IV Benadryl * IV steroids help with rash as well * Follow up with Dr Romano as an outpatient. * Atarax provided some relief and can be given to be used on a when necessary basis. QTc this morning for 447. #Recent Septic joint with MSSA currently on 2 antibiotics -Keflex and rifampin Patient was admitted recently to [facility] with MSSA septic joint. Received 6 weeks of IV oxacillin followed by oral keflex and rifampin for the next 6 months (till february). following the patient. * Continue keflex TID and rifampin BID * Recommend to follow-up as an outpatient owing to questionable rash is by one of the antibiotics. #Hypertension Continue lisinopril #Atrial fibrillation on Eliquis and metoprolol succinate On Eliquis 2.5mg daily. Export Administrator Dr. Bashir who recommended that the dose of Eliquis history increased to 5 mg BID. Will monitor for any hemarthrosis. This was discussed with the patient. Recommended to follow up with roofer helper vinyl coating in 7 days. Continue metoprolol succinate 25mg daily. #CKD satge III Continue Lisinopril BEP in AM #Gout On allopurinol, will hold till rash resovles. #?DM Will monitor BS TID/HS. If sugars elevated, begin SS. DVT prophylaxis SC heparin Code status DNR/DNI Problem List: 1. COPD exacerbation 2. Acute exacerbation of chronic obstructive airways disease 3. Paroxysmal A-fib 4. Chronic pruritic rash in adult Pain Ratin Pain Location: NA Pain Goal: Remain pain free Pain Plan: NA Tomorrow's Labs & Rationales: NA Discharge Plan Stable for Discharge? Yes Kulwant MENON,[facility] 10/30/17 1007: Attending Review Statement Attending Statement Attending MD Statement: examined this patient, discuss w/resident/PA/MANUFACTURING LEADER, agreed w/resident/PA/MANUFACTURING LEADER, discussed with family, reviewed EMR data (avail), discussed with nursing, discussed with case mgmt, reviewed images, amended to note Attending Assessment/Plan: Seen and examined independently States that he is feeling better. Was able to ambulate to the bathroom with less difficulty. Reports no cough or SOB at rest. Denies and fever, chills, nausea or vomiting General Appearance: Alert, Oriented X3, Cooperative HEENT: Mucous Membr. moist/pink Cardiovascular: Normal S1, Normal S2 Lungs: Diffuse Wheezing. Incresed air movement compared to previous exam Abdomen: Normal Bowel Sounds, Soft, No Tenderness Neurological: Normal Gait, Normal Speech Extremities: No Clubbing, No Cyanosis, No Edema Pt with COPD exacerbation and eczematous rash Problem list #COPD exacerbation improved ok to dc #Chronic Systolic Heart Failure Last Echo Estimated EF 35-40%. #Extensive rash - presumably eczematous now better #Recent Septic joint with MSSA currently on 2 antibiotics -Keflex and rifampin #Hypertension #Atrial fibrillation on Eliquis and metoprolol succinate #CKD Stage III #Gout on allopurinol #?DM REC OK to dc today DC on aa 10 day steroid taper, prednisone 40 for two and so on Make hydroxazine prn To follow with derm Can hold allopurinol till rash resolves needs follow up with derm, pulm ID (prob rash is related to cephalosporin)
[2017-10-30 08:10] VITALS: BP 140/70
--- NOTE | 2017-10-30 08:48 | PN- Pulmonary ---
Subjective HPI/Critical Care Issues: Patient continues to have dyspnea on exertion which is close to his baseline. Oxygen requirements are at baseline eosinophilia markedly improved on steroids Objective Current Medications: Current Medications Sig/Luis Start time Last Medication Dose Route Stop Time Status Admin Acetaminophen 650 MG Q6P PRN 10/27 2115 AC PO Albuterol Sulfate 3 ML TID 10/28 1000 AC 10/30 INH 0825 Allopurinol 150 MG DAILY 10/27 1403 AC 10/30 PO 0809 Amiodarone HCl 200 MG DAILY 10/27 1327 AC 10/30 PO 0811 Apixaban 2.5 MG DAILY 10/28 1448 AC 10/30 PO 0811 Atorvastatin Calcium 40 MG DAILY 10/27 1328 AC 10/30 PO 0810 Azithromycin 500 MG DAILY 10/28 1000 AC 10/30 PO 0809 Budesonide/ 2 PUF BID 10/29 1000 AC 10/30 Formoterol Fumarate INH 0813 Cephalexin 500 MG TID 10/27 1600 AC 10/30 PO 0811 Cholecalciferol 1,000 IU DAILY 10/27 1328 AC 10/30 PO 0810 Digoxin 0.125 MG DAILY 10/27 1328 AC 10/30 PO 0811 Diphenhydramine HCl 25 MG AT BEDTIME 10/27 2200 AC 10/29 IV 2124 Hydrocodone Bitart/ 1 TAB Q6P PRN 10/27 2115 AC Acetaminophen PO Hydroxyzine HCl 10 MG TID 10/30 1000 AC PO Hydroxyzine HCl 10 MG ONCE ONE 10/29 2000 DC 10/29 PO 10/29 Lisinopril 10 MG DAILY 10/27 1328 AC 10/30 PO 0810 Methylprednisolone 40 MG DAILY 10/29 1000 AC 10/30 IV 0809 Methylprednisolone 40 MG Q8H 10/27 1700 DC 10/29 IV 0759 Metoprolol Succinate 25 MG DAILY 10/27 1403 AC 10/30 PO 0810 Omeprazole 40 MG DAILY AC 10/27 1330 AC 10/30 PO 0545 Patient Medication 1 ED ONE ONE 10/29 1630 [place] Teaching ED 10/29 1631 Rifampin 300 MG BID 10/27 1329 AC 10/30 PO 0810 Spironolactone 25 MG DAILY 10/27 1329 AC 10/30 PO 0809 Tiotropium [place] 1 PUF DAILY 10/29 1000 AC 10/30 INH 0815 Vital Signs & I&O Last 24 Hrs of Vitals and I&O: Vital Signs Date Time Temp Pulse Resp B/P B/P Pulse O2 O2 Flow FiO2 Mean Ox Delivery Rate 10/30 0826 92 Nasal 2.0L Cannula 10/30 0811 87 10/30 0810 87 140/70 10/30 0800 Nasal 2.0L Cannula 10/30 0630 98.4 65 20 143/70 91 10/30 0000 94 Nasal 2.0L Cannula 10/29 2249 98.1 64 18 132/60 94 Room Air 10/29 1947 94 Room Air 10/29 1600 97 Nasal 2.5L Cannula 10/29 1411 99.1 80 18 130/60 97 Nasal 2.0L Cannula Intake & Output 10/30 1600 10/30 0800 10/30 0000 Intake Total 500 400 Output Total Balance 500 400 Intake, Oral 500 400 Number 1 Bowel Movements Oxygen saturations 2 L 92% exam of his chest shows diminished breath sounds there are no wheezes or crackles cardiac exam shows regular S1 and S2 without murmurs Impression/Plan Impression/Plan Impression/Plan: 72-year-old with severe COPD chronic hypoxic respiratory failure admitted with exacerbation slowly improving Recommendations: DC IV Solu-Medrol begin oral prednisone. Assess saturations with ambulation. Anticipate discharge
[2017-10-30] MEDS ORDERED: PREDNISONE10 M2 PO ×2 (10:33→13:50)
[2017-10-30] MEDS ORDERED: HYDROXYZINE HCL25 M2 PO ×2 (10:39→13:50)
[2017-10-30] MEDS ORDERED: ELIQUIS5 M1 PO ×2 (12:48→13:50)
== END 2017-10-30 14:11 | DRG 191 ==
LOC: ERH 07:51 → 2NA 13:38 → ERHI 13:38 → ENRESERV 13:52 → ENTRNSPT 16:49 → EDTRNSPTSTS 16:57 → 2NA 16:57 → EDTRNSPT 16:57 → 2NA 16:58 → CMPTRNSPT 17:28 → ENPENDDIS 10-30 13:22 → ENTRNSPT 10-30 13:44 → EDTRNSPT 10-30 13:52 → EDTRNSPTSTS 10-30 13:52 → CMPTRNSPT 10-30 14:11 → 2NA 10-30 14:11
PROVIDERS: Emergency Medicine; Internal Medicine
DX: J44.1 Chronic obstructive pulmonary disease with (acute) exacerbation (principal); M00.061 Staphylococcal arthritis, right knee; J96.11 Chronic respiratory failure with hypoxia; D72.1 Eosinophilia; B95.61 Methicillin susceptible Staphylococcus aureus infection as the cause of diseases classified elsewhere; I13.0 Hypertensive heart and chronic kidney disease with heart failure and stage 1 through stage 4 chronic kidney disease, or unspecified chronic kidney disease; E11.22 Type 2 diabetes mellitus with diabetic chronic kidney disease; I50.22 Chronic systolic (congestive) heart failure; N18.3 Chronic kidney disease, stage 3 (moderate); I48.0 Paroxysmal atrial fibrillation; Z99.81 Dependence on supplemental oxygen; L30.9 Dermatitis, unspecified; Z79.01 Long term (current) use of anticoagulants; Z79.4 Long term (current) use of insulin; L40.9 Psoriasis, unspecified; M10.9 Gout, unspecified; Z79.51 Long term (current) use of inhaled steroids; Z79.52 Long term (current) use of systemic steroids; K21.9 Gastro-esophageal reflux disease without esophagitis; Z96.653 Presence of artificial knee joint, bilateral; T84.53XD Infection and inflammatory reaction due to internal right knee prosthesis, subsequent encounter
CPT/HCPCS: 2NASP; 36415; 36592; 81003; 82436; 87070; 87804; 87804-59; 93005; 93010; 96365; 96375; 99291; J0456; J1200; J2920; J2930; J3490

== ENCOUNTER 2017-12-11 06:03 | Inpatient (IN) | payer OTHER ==
[~2017-12-11] VITALS: Ht 188 cm; Wt 80.1 kg
[~2017-12-11 06:03] MED LIST changes: +CLOBETASOL PROP15 GM TOP; +CLOBETASOL PROP50 M1 TOP; +HYDROCORTISO453.6 G2 TOP; +HYDROXYZINE HCL25 M2 PO; +KEFLEX500 M1 PO; +NYAMYC15 GM TOP; +TOPROL XL25 M1 PO; +TRIAMCINOLONE A15 G1 TOP
--- NOTE | 2017-12-11 06:16 | ED DYSPNEA/ASTHMA COMPLAINT ---
History of Present Illness General Chief Complaint: Dyspnea (COPD, CHF, Other) Stated Complaint: SOB Source: patient, family, old records Exam Limitations: no limitations Vital Signs & Intake/Output Vital Signs & Intake/Output Vital Signs Date Time Temp Pulse Resp B/P B/P Pulse O2 O2 Flow FiO2 Mean Ox Delivery Rate 12/11 0630 94 Nasal 3.0L Cannula 12/11 0616 95 Nasal 3.0L Cannula 12/11 0615 98.4 73 24 161/74 94 Nasal 3.0L Cannula Allergies Coded Allergies: NO KNOWN ALLERGIES (08/21/15) Reconcile Medications Albuterol Sulfate (Proair Hfa) 90 MCG HFA.AER.AD 2 PUF INH Q4-6 PRN PRN Shortness of breath (Reported) Albuterol Sulfate 2.5 MG/3 ML (0.083 %) VIAL.NEB 1 Vial INH/KIMANI Q4P PRN Shortness of breath (Reported) Amiodarone (Cordarone) 200 MG TABLET 1 TAB PO DAILY HEART (Reported) Apixaban (Eliquis) 5 MG TABLET 1 TAB PO BID A. Fib . Atorvastatin Calcium 40 MG TABLET 1 TAB PO DAILY cholesterol (Reported) Cephalexin (Keflex) 500 MG CAPSULE 1 CAP PO TID prosthetic joint infection ( Reported) Cholecalciferol (Vitamin D3) (Vitamin D) 1,000 UNIT TABLET 1 TAB PO DAILY OSTEOPOROSIS Clobetasol Propionate 0.05 % SOLUTION 1 JO TOP ONCE A WEEK SCALP (Reported) Clobetasol Propionate 0.05 % CREAM..G. 1 JO TOP AD SKIN (Reported) apply to affected area(s) Digoxin 125 MCG TABLET 1 TAB PO DAILY HEART (Reported) Fluticasone/Salmeterol (Advair 250-50 Diskus) 250 MCG-50 MCG/DOSE BLST.W.DEV 1 PUF INH BID Shotness of breath (Reported) Hydrocortisone 2.5 % CREAM..G. 1 JO TOP AD PRN SKIN (Reported) apply to affected area(s) Hydroxyzine Hydrochloride (Atarax) 25 MG TAB 1 TAB PO BID PRN Rash . Lisinopril 10 MG TABLET 1 TAB PO DAILY HIGH BLOOD PRESSURE (Reported) Metoprolol Succ XL (Toprol XL) 25 MG TAB 1 TAB PO DAILY heart health ( Reported) Nystatin (Nyamyc) 100,000 UNIT/GRAM POWDER 1 JO TOP PRN GROIN (Reported) Pantoprazole Sodium (Protonix) 20 MG TABLET.DR 2 TAB PO DAILY ACID REFLUX ( Reported) Prednisone 10 MG TABLET 1 TAB PO DAILY COPD (Reported) Prednisone 10 MG TABLET 1 TAB PO DAILY COPD On 10/31 and 11/01 4 tab 0n 11/02 and 11/03 3 tab On 11/04 and 11/05 2 tab On 11/06 to 11/09 1 tab Rifampin (Rifadin) 300 MG CAPSULE 1 CAP PO BID Septic arthritis Please follow up infectious disease Dr. Lui for further antibiotic course. His contact # [phone] Spironolactone (Aldactone) 25 MG TABLET 1 TAB PO DAILY CHF (Reported) Tiotropium Merrill (Spiriva) 18 MCG CAP.W.DEV 1 CAP INH DAILY Shortness of breath (Reported) Triamcinolone Acetonide 0.1 % CREAM..G. 1 JO TOP AD PRN SKIN (Reported) Triage Note: PT FROM HOME WITH C/O SOB OVER THE PAST FEW DAYS "I JUST CAN'T BREAHTE". 94% ON 3L AT THIS TIME, ON 2L AT BASELINE. DR GOODMAN IN ROOM FOR EVAL Triage Nurses Notes Reviewed? yes HPI: Patient came in from home with complaints of increasing difficulty breathing. Patient has O2 dependent COPD. Patient has been using his inhalers without relief. Patient is chronically on steroids. Patient has been on rifampin since before [place] for blood and infection. Patient denies any fevers chills. There is no chest pain or chest tightness. He states he is occasionally able to cough stuff up but usually he is unable to it get up. He denies any orthopnea. Patient is concerned that is getting pneumonia again. Past History Travel History Traveled to [place] past 21 day No Medical History Any Pertinent Medical History? see below for history Neurological: NONE EENT: cataracts Cardiovascular: AFIB, CHF, hypertension, hyperlipidemia Respiratory: COPD (2L O2& steroid dependent), pneumonia, O2 DEP 2L Gastrointestinal: GERD, pancreatitis Hepatic: hepatic cysts Renal: chronic kidney disease Musculoskeletal: gout Psychiatric: NONE Endocrine: diabetes (insulin-requiring) Blood Disorders: NONE Cancer(s): NONE RN HEART/Reproductive: NONE Other Medical Hx: Psoriasis History of MRSA: No History of VRE: No History of CDIFF: No Influenza Vaccine: 05/29/17 Tetanus Vaccine: 06/30/14 Surgical History Surgical History: appendectomy, cataract removal, knee replacement (bilateral) Psychosocial History Who do you live with Family Services at Home Oxygen What is your primary language Bulgarian Tobacco Use: Quit >30 days ago ETOH Use: denies use Illicit Drug Use: denies illicit drug use Family History Family History, If Any: BROTHER, ; Cause: Brain cancer. Uncle ([place] at age 40). FH: myocardial infarction SISTER FH: lung cancer FATHER Hx Contributory? No Review of Systems Review of Systems Constitutional: Reports: no symptoms. EENTM: Reports: no symptoms. Respiratory: Reports: see HPI, cough, short of breath, wheezing. Cardiovascular: Reports: no symptoms. GI: Reports: no symptoms. Genitourinary: Reports: no symptoms. Musculoskeletal: Reports: no symptoms. Skin: Reports: no symptoms. Neurological/Psychological: Reports: no symptoms. Hematologic/Endocrine: Reports: no symptoms. Immunologic/Allergic: Reports: no symptoms. All Other Systems: Reviewed and Negative Physical Exam Physical Exam General Appearance: well developed/nourished, alert, awake, anxious, moderate distress Head: atraumatic, normal appearance Eyes: Bilateral: PERRL, EOMI. Ears, Nose, Throat: normal pharynx, normal ENT inspection, hearing grossly normal Neck: normal inspection, supple, full range of motion Respiratory: decreased breath sounds, wheezing, respiratory distress Cardiovascular: regular rate/rhythm, normal peripheral pulses Gastrointestinal: normal bowel sounds, soft, non-tender, no organomegaly Extremities: normal inspection, normal capillary refill, normal range of motion, no edema Neurologic/Psych: no motor/sensory deficits, awake, alert, oriented x 3, normal mood/affect Skin: intact, normal color, warm/dry Lymphatic: no anterior cervical alvino Core Measures ACS in differential dx? No CVA/TIA Diagnosis No Sepsis Present: No Sepsis Focused Exam Completed? No Progress Differential Diagnosis: COPD, pneumonia, pneumothorax Plan of Care: Orders Procedure Date/time Status Heart Healthy Diet 12/11 B Active LACTIC ACID 12/11 912 Active ED Holding Orders 12/11 650 Active Admit to inpatient 12/11 650 Active Vital Signs 12/11 650 Active Code Status 12/11 650 Active PARTIAL THROMBOPLASTIN TIME 12/11 614 Active PROTHROMBIN TIME 12/11 614 Active ARTERIAL BLOOD GAS (GEN) 12/11 612 Complete BLOOD CULTURE 12/11 612 Active TROPONIN LEVEL 12/11 612 Active LACTIC ACID 12/11 612 Active COMPREHENSIVE METABOLIC PANEL 12/11 612 Active CBC WITHOUT DIFFERENTIAL 12/11 612 Active EKG 12/12 603 Active Laboratory Tests 12/11/17 0632: Sodium Pending, Potassium Pending, Chloride Pending, Carbon Dioxide Pending, Anion Gap Pending, BUN Pending, Creatinine Pending, BUN/Creatinine Ratio Pending , Glucose Pending, Lactic Acid Pending, Calcium Pending, Total Bilirubin Pending , AST Pending, ALT Pending, Alkaline Phosphatase Pending, Troponin I Pending, Total Protein Pending, Albumin Pending, Globulin Pending, Albumin/Globulin Ratio Pending, PT Pending, INR Pending, APTT Pending, CBC w Diff Pending, WBC Pending, RBC Pending, Hgb Pending, Hct Pending, MCV Pending, MCH Pending, MCHC Pending, RDW Pending, Plt Count Pending, MPV Pending, Gran % Pending, Lymphocytes % Pending, Monocytes % Pending, Eosinophils % Pending, Basophils % Pending, Absolute Granulocytes Pending, Absolute Lymphocytes Pending, Absolute Monocytes Pending, Absolute Eosinophils Pending, Absolute Basophils Pending 12/11/17 0620: pH 7.40, pCO2 46 H, pO2 72 L, HCO3 28, ABG O2 Sat (Measured) 93.0 L, P-50 ( Temp Corrected) N, Carboxyhemoglobin 0.3 L, O2 Concentration % 3L, O2 Delivery Method N/C, Phlebotomy Draw Site RIGHT RADIAL Microbiology 12/12 631 BLOOD: Blood Culture - RECD 12/11 612 BLOOD: Blood Culture - ORD Diagnostic Imaging: Viewed by Me: Radiology Read. Discussed w/RAD: Radiology Read. Initial ED EKG: NSR, nonspecific ST T wave chg Prior EKG: unchanged Rhythm Strip: normal sinus rhythm Departure Departure Disposition: STILL A PATIENT Condition: Fair Clinical Impression Primary Impression: COPD exacerbation Referrals: Red Lopez MD (PCP/Family) Departure Forms: Customer Survey General Discharge Information Admission Note Spoke With: Red Lopez MD Documentation of Exam: Documentation of any treatments & extenuating circumstances including Concerns Regarding Discharge (functional status, medication knowledge or non-compliance, living conditions, etc.) that warrant an admission rather than observation: [ Pulmonary consult, respiratory treatment, IV steroids, IV antibiotics, patient is at high risk to be discharged to her lip.] Critical Care Note Critical Care Note Critical Care Time: non-applicable
[2017-12-11 06:46] LABS: ABSOLUTE BASOPHIL COUNT 0 /CUMM (0.0-0.2); ABSOLUTE EOSINOPHIL COUNT 2.2 /CUMM (0.0-0.7); ABSOLUTE GRANULOCYTE CT 4.6 /CUMM (1.4-6.5); ABSOLUTE LYMPH COUNT 0.8 /CUMM (1.2-3.4); ABSOLUTE MONOCYTE COUNT 0.5 /CUMM (0.10-0.60); BASOPHIL % 0.4 % (0.0-2.0); EOSINOPHIL % 26.6 % (0-5); GRANULOCYTE % 56.5 % (42.2-75.2); HEMATOCRIT 34.2 % (42-52); MEAN CORPUSCULAR HGB 28.2 PG (27.0-31.0); MEAN CORPUSCULAR HGB CONC 32.3 G/DL (33.0-37.0); MEAN CORPUSCULAR VOLUME 87.3 FL (80.0-94.0); MEAN PLATELET VOLUME 7.7 FL (7.4-10.4); PLATELET COUNT 229 /CUMM (130-400); RBC DISTRIBUTION WIDTH 15.4 % (11.5-14.5); RED BLOOD CELL CT 3.92 /CUMM (4.70-6.10); WHITE BLOOD CELL COUNT 8.2 /CUMM (4.8-10.8)
--- NOTE | 2017-12-11 06:51 | RADIOLOGY REPORT ---
EXAMINATION: CHEST 1 VIEW CLINICAL INFORMATION: Shortness of breath, cough. COMPARISON: August 20, 2017. TECHNIQUE: An AP view of the chest is provided. FINDINGS: The cardiac silhouette is stable. The mediastinal and hilar contours are unremarkable. There are neither pleural effusions nor pneumothoraces. There are no consolidations. The osseous structures are stable with moderate rightward curvature to the thoracic spine. There is a stable healed lateral right rib fracture. IMPRESSION: No evidence for acute disease. Stable chest radiograph.
[2017-12-11 06:58] LABS: PT 12.5 SEC (9.4-12.5); PTT 31 SEC (25-37)
--- NOTE | 2017-12-11 07:30 | History & Physical ---
See Addendum General Information and HPI MD Statement: I have seen and personally examined TESSA YANEZ and documented this H &P. Source of Information: patient Exam Limitations: no limitations History of Present Illness: This is a 72 YO M w/PMH significant for COPD on 2 L oxygen at baseline,recent septic joint with MSSA currently on 2 antibiotics (Keflex and rifampin), A. fib, used to be on Eliquis recently switched to warfarin, CHF, diabetes not on any medication, steroid dependent, psoriasis, gout who presents to the hospital with worsening dyspnea and difficulty breathing. Per patient, she has been having difficulty breathing since last night, he tried to use his nebulizers and inhalers without relief. Reports cough w/clear sputum at baseline. Patient denies any fevers chills. There is no chest pain or chest tightness. The patient sleeps with 2 pillows at baseline. He is concerned that is getting pneumonia again. No sick contact. Ex smoker. He states that he feels achy in his back and ususally when he develps pneumonia, has this pain. Per patient, he used to be on Eliquis, last week Eliquis was switched to warfarin, follows with Dr. Bashir. The patient reports generalized for this, used to have a rash for which follow- up with management department chair was prescribed topical creams, the patient reports that his rash worsened after using the creams. Per patient, his rash has resolved at this point however he still experiences pruritus. Allergies/Medications Allergies: Coded Allergies: NO KNOWN ALLERGIES (08/21/15) Home Med list Albuterol Sulfate (Proair Hfa) 90 MCG HFA.AER.AD 2 PUF INH Q4-6 PRN PRN Shortness of breath (Reported) Albuterol Sulfate 2.5 MG/3 ML (0.083 %) VIAL.NEB 1 Vial INH/KIMANI Q4P PRN Shortness of breath (Reported) Amiodarone (Cordarone) 200 MG TABLET 1 TAB PO DAILY HEART (Reported) Atorvastatin Calcium 40 MG TABLET 1 TAB PO DAILY cholesterol (Reported) Cephalexin (Keflex) 500 MG CAPSULE 1 CAP PO TID prosthetic joint infection ( Reported) Cholecalciferol (Vitamin D3) (Vitamin D) 1,000 UNIT TABLET 1 TAB PO DAILY OSTEOPOROSIS Clobetasol Propionate 0.05 % SOLUTION 1 JO TOP ONCE A WEEK SCALP (Reported) Clobetasol Propionate 0.05 % CREAM..G. 1 JO TOP AD SKIN (Reported) apply to affected area(s) Digoxin 125 MCG TABLET 1 TAB PO DAILY HEART (Reported) Fluticasone/Salmeterol (Advair 250-50 Diskus) 250 MCG-50 MCG/DOSE BLST.W.DEV 1 PUF INH BID Shotness of breath (Reported) Hydrocortisone 2.5 % CREAM..G. 1 JO TOP AD PRN SKIN (Reported) apply to affected area(s) Hydroxyzine Hydrochloride (Atarax) 25 MG TAB 1 TAB PO BID PRN Rash . Lisinopril 10 MG TABLET 1 TAB PO DAILY HIGH BLOOD PRESSURE (Reported) Metoprolol Succ XL (Toprol XL) 25 MG TAB 1 TAB PO DAILY heart health ( Reported) Nystatin (Nyamyc) 100,000 UNIT/GRAM POWDER 1 JO TOP PRN GROIN (Reported) Pantoprazole Sodium (Protonix) 20 MG TABLET.DR 2 TAB PO DAILY ACID REFLUX ( Reported) Prednisone 10 MG TABLET 1 TAB PO DAILY COPD (Reported) Prednisone 10 MG TABLET 1 TAB PO DAILY COPD On 10/31 and 11/01 4 tab 0n 11/02 and 11/03 3 tab On 11/04 and 11/05 2 tab On 11/06 to 11/09 1 tab Rifampin (Rifadin) 300 MG CAPSULE 1 CAP PO BID Septic arthritis Please follow up infectious disease Dr. Lui for further antibiotic course. His contact # [phone] Spironolactone (Aldactone) 25 MG TABLET 1 TAB PO DAILY CHF (Reported) Tiotropium Dickinson (Spiriva) 18 MCG CAP.W.DEV 1 CAP INH DAILY Shortness of breath (Reported) Triamcinolone Acetonide 0.1 % CREAM..G. 1 JO TOP AD PRN SKIN (Reported) Warfarin Sodium (Coumadin) 7.5 MG TABLET 1 TAB PO DAILY A.FIB (Reported) Past History Travel History Traveled to [place] past 21 day No Medical History Neurological: NONE EENT: cataracts Cardiovascular: AFIB, CHF, hypertension, hyperlipidemia Respiratory: COPD (2L O2& steroid dependent), pneumonia, O2 DEP 2L Gastrointestinal: GERD, pancreatitis Hepatic: hepatic cysts Renal: chronic kidney disease Musculoskeletal: gout Psychiatric: NONE Endocrine: diabetes (insulin-requiring) Blood Disorders: NONE Cancer(s): NONE DIET THERAPIST/Reproductive: NONE Other Medical Hx: Psoriasis History of MRSA: No History of VRE: No History of CDIFF: No Influenza Vaccine: 05/29/17 Tetanus Vaccine: 06/30/14 Surgical History Surgical History: appendectomy, cataract removal, knee replacement (bilateral) Past Family/Social History Family History Relations & Conditions if any BROTHER, ; Cause: Brain cancer. Uncle ([place] at age 40). FH: myocardial infarction SISTER FH: lung cancer FATHER Psychosocial History Who Do You Live With? spouse, 2 daughters, one son, granddaughter and her Services at Home: Oxygen Primary Language: Icelandic ETOH Use: denies use Illicit Drug Use: denies illicit drug use Functional Ability ADLs Independent: dressing, eating, toileting, bathing. Ambulation: independent IADLs Independent: shopping, housework, finances, food prep, telephone, transportation , medication admin. Review of Systems Review of Systems Constitutional: Denies: chills, diaphoresis, fever, malaise, weakness, unexplained weight loss. EENTM: Reports: no symptoms. Cardiovascular: Denies: chest pain, edema, palpitations, peripheral edema, syncope. Respiratory: Reports: cough, orthopnea, short of breath, sputum production, wheezing. Denies : hemoptysis, stridor. GI: Reports: no symptoms. Denies: abdominal pain, bloating, constipation, diarrhea. Genitourinary: Reports: no symptoms. Musculoskeletal: Reports: back pain. Denies: gout, joint pain, joint swelling, muscle pain, muscle stiffness, neck pain. Skin: Reports: no symptoms. Neurological/Psychological: Reports: no symptoms. Hematologic/Endocrine: Reports: no symptoms. Immunologic/Allergic: Reports: no symptoms. All Other Systems: Reviewed and Negative Exam & Diagnostic Data Last 24 Hrs of Vital Signs/I&O Vital Signs Date Time Temp Pulse Resp B/P B/P Pulse O2 O2 Flow FiO2 Mean Ox Delivery Rate 12/11 0801 98.3 74 18 153/81 97 Nasal 2.0L Cannula 12/11 0630 94 Nasal 3.0L Cannula 12/11 0616 95 Nasal 3.0L Cannula 12/11 0615 98.4 73 24 161/74 94 Nasal 3.0L Cannula Intake & Output 12/11 1600 12/11 0800 12/11 0000 Intake Total 250 Output Total Balance 250 Intake, IV 250 Physical Exam General Appearance Alert, Oriented X3, Cooperative, No Acute Distress Skin No Rashes, No Breakdown, No Significant Lesion Skin Temp/Moisture Exam: Warm/Dry Sepsis Skin Exam (color): Normal for Ethnicity HEENT Atraumatic, PERRLA, EOMI, Mucous Membr. moist/pink Neck Supple, No JVD, No thryomegaly, +2 Carotid Pulse wo Bruit, No LAD Lymphatic Cervical nl Cardiovascular Regular Rate, Normal S1, Normal S2, No Murmurs, Gallops, Rubs Lungs expiratory wheezes, no rales or rhonchi Abdomen Normal Bowel Sounds, Soft, No Tenderness, No Hepatospenomegaly, No Masses Neurological Normal Speech, Strength at 5/5 X4 Ext, Normal Tone, Sensation Intact, Cranial Nerves 3-12 NL Extremities No Clubbing, No Cyanosis, No Edema, Normal Pulses, No Tenderness/ Swelling Vascular Normal Pulses, Pulses Symmetrical Last 24 Hrs of Labs/Chacorta: Laboratory Tests 12/11/17 0632: Anion Gap 8, Estimated GFR 54 L, BUN/Creatinine Ratio 18.5, Glucose 106 H, Lactic Acid 0.8, Calcium 9.5, Total Bilirubin 0.3, AST 16 L, ALT 23, Alkaline Phosphatase 53, Troponin I 0.02, Total Protein 6.4, Albumin 3.8, Globulin 2.6, Albumin/Globulin Ratio 1.5, PT 12.5, INR 1.15, APTT 31, CBC w Diff MAN DIFF ORDERED, RBC 3.92 L, MCV 87.3, MCH 28.2, MCHC 32.3 L, RDW 15.4 H, MPV 7.7, Gran % 56.5, Lymphocytes % 10.0 L, Monocytes % 6.5, Eosinophils % 26.6 H, Basophils % 0.4, Absolute Granulocytes 4.6, Segmented Neutrophils 67, Absolute Lymphocytes 0.8 L, Lymphocytes 10 L, Monocytes 2, Absolute Monocytes 0.5, Eosinophils 21 H, Absolute Eosinophils 2.2, Absolute Basophils 0, Platelet Estimate ADEQUATE, Hypochromic-Microcytic 1+, Poikilocytosis 1+, Ovalocytes 1+, Fld Total RBCs Counted 100 12/11/17 0620: pH 7.40, pCO2 46 H, pO2 72 L, HCO3 28, ABG O2 Sat (Measured) 93.0 L, P-50 ( Temp Corrected) N, Carboxyhemoglobin 0.3 L, O2 Concentration % 3L, O2 Delivery Method N/C, Phlebotomy Draw Site RIGHT RADIAL Microbiology 12/11 653 BLOOD: Blood Culture - RECD 12/12 631 BLOOD: Blood Culture - RECD Diagnostic Data EKG Results SR, 69, Qtc 416, no significant ST-T wave abnormalities. No change compared to prior. Assessment/Plan Assessment: This is a 72 YO M w/PMH significant for COPD on 2 L oxygen at baseline,recent septic joint with MSSA currently on 2 antibiotics (Keflex and rifampin), A. fib, used to be on Eliquis recently switched to warfarin, CHF, diabetes not on any medication, steroid dependent, psoriasis, gout, CK D who presents to the hospital with worsening dyspnea and difficulty breathing. Chest x-ray negative for pneumonia, no leukocytosis. The patient has received IV methylprednisolone 1251, IV ceftriaxone 1 g 1, IV azithromycin 500 mg 1 and TRC/nebulizers in the ED. Problem list: #Worsening of dyspnea #Diabetes #Atrial fibrillation on warfarin with subtherapeutic INR #Septic joint with MSSA on 2 antibiotics #CHF, CK D, gout Plan: steroids of leukocytosis at this point however monitored closely and reassess and dose accordingly PPI rifampin before restarting. The case was discussed with attending Dr. Lopez, please refer to his addendum for further recs. As Ranked By This Provider Problem List: 1. COPD Core Measures/Misc (04/14) Acute Coronary Syndrome ACS Diagnosis: No Congestive Heart Failure Congestive Heart Failure Diagnosis No Cerebrovascular Accident CVA/TIA Diagnosis: No VTE (View Protocol) VTE Risk Factors Age>40 No Mechanical VTE Prophylaxis d/t N/A MechProphylax Ordered No VTE Pharm Prophylaxis d/t NA PharmProphylax ordered Sepsis (View protocol) Sepsis Present: No
[2017-12-11] MEDS ORDERED: COUMADIN7.5 M1 PO (08:05)
[2017-12-11 09:43] VITALS: BP 138/64
--- NOTE | 2017-12-11 09:55 | Admission Certification ---
Admission Certification Certification Statement - As attending physician, I certify that at the time of - admission, based on clinical presentation, severity of - symptoms, need for further diagnostic testing and - therapeutic interventions, and risk of adverse outcomes - without in-hospital treatment, in my clinical assessment, - this patient requires an acute hospital stay for a minimum - of two nights or longer. I have also considered psychsocial - factors such as support system, advanced age, financial - issues, cognitive issues, and failed out-patient treatments, - past re-admission history, safety of patient, and lack of - compliance as applicable. Specific rationale supporting this admission is: Exacerbation of COPD
--- NOTE | 2017-12-11 09:58 | PN- Att Addend ---
Attending Addendum Attending Brief Note 72-year-old white male with history of COPD also been treated for chronic infection of the knee with antibiotics. Again for the last day also increased shortness of breath to the point he can hardly breathe came to the ER, and got respiratory treatments IV steroids with little improvement the patient was admitted had patient has no fever White count is normal chest x-ray showed no acute infiltrates. Case discussed with resident will get IV steroids total respiratory care and hopefully will improve quickly. Current Medications Sig/Luis Start time Last Medication Dose Route Stop Time Status Admin Albuterol Sulfate 2 PUF Q4-6 PRN PRN 12/11 899 AC INH Albuterol Sulfate 3 ML ONCE ONE 12/11 614 DC 12/11 INH 12/12 615 06 Amiodarone HCl 200 MG DAILY 12/11 899 AC PO Atorvastatin Calcium 40 MG 1700 12/11 1700 AC PO Azithromycin 500 MG ONCE ONE 12/11 07 DC 12/11 Sodium Chloride 250 ML IV 12/11 075 0727 Ceftriaxone Sodium 0 .STK-MED ONE 12/11 717 DC .ROUTE Ceftriaxone Sodium 1,000 MG ONCE ONE 12/11 07 DC 12/11 IV 12/11 700 0727 Cephalexin 500 MG TID 12/11 1400 AC PO Cephalexin 500 MG TID 12/11 09 DC PO Insulin Aspart 0 TIDAC 12/11 1200 AC SC Ipratropium Mobile 2.5 ML ONCE ONE 12/11 614 DC 12/11 INH 12/12 615 0625 Lisinopril 10 MG DAILY 12/11 09 AC PO Methylprednisolone 40 MG Q8 12/12 06 AC IV Methylprednisolone 0 .STK-MED ONE 12/11 0648 DC .ROUTE Methylprednisolone 125 MG ONCE ONE 12/11 614 DC 12/11 IV 12/12 615 0646 Metoprolol Succinate 25 MG DAILY 12/11 09 AC PO Rifampin 300 MG BID 12/11 0828 AC PO Spironolactone 25 MG DAILY 12/11 900 AC PO Warfarin Sodium 7.5 MG COUMADIN 1700 ONE 12/11 1700 AC PO 12/11 1701 Warfarin Sodium 7.5 MG DAILY 12/11 900 DC PO Laboratory Tests 12/11/17 0632: Anion Gap 8, Estimated GFR 54 L, BUN/Creatinine Ratio 18.5, Glucose 106 H, Lactic Acid 0.8, Calcium 9.5, Total Bilirubin 0.3, AST 16 L, ALT 23, Alkaline Phosphatase 53, Troponin I 0.02, Total Protein 6.4, Albumin 3.8, Globulin 2.6, Albumin/Globulin Ratio 1.5, PT 12.5, INR 1.15, APTT 31, CBC w Diff MAN DIFF ORDERED, RBC 3.92 L, MCV 87.3, MCH 28.2, MCHC 32.3 L, RDW 15.4 H, MPV 7.7, Gran % 56.5, Lymphocytes % 10.0 L, Monocytes % 6.5, Eosinophils % 26.6 H, Basophils % 0.4, Absolute Granulocytes 4.6, Segmented Neutrophils 67, Absolute Lymphocytes 0.8 L, Lymphocytes 10 L, Monocytes 2, Absolute Monocytes 0.5, Eosinophils 21 H, Absolute Eosinophils 2.2, Absolute Basophils 0, Platelet Estimate ADEQUATE, Hypochromic-Microcytic 1+, Poikilocytosis 1+, Ovalocytes 1+, Fld Total RBCs Counted 100, Digoxin 0.6 L 12/11/17 0620: pH 7.40, pCO2 46 H, pO2 72 L, HCO3 28, ABG O2 Sat (Measured) 93.0 L, P-50 ( Temp Corrected) N, Carboxyhemoglobin 0.3 L, O2 Concentration % 3L, O2 Delivery Method N/C, Phlebotomy Draw Site RIGHT RADIAL Vital Signs Date Time Temp Pulse Resp B/P B/P Pulse O2 O2 Flow FiO2 Mean Ox Delivery Rate 12/11 0943 97.4 73 16 138/64 93 Nasal 2.0L Cannula 12/11 0801 98.3 74 18 153/81 97 Nasal 2.0L Cannula 12/11 0630 94 Nasal 3.0L Cannula 12/11 0616 95 Nasal 3.0L Cannula 12/11 0615 98.4 73 24 161/74 94 Nasal 3.0L Cannula
[2017-12-11 14:07] VITALS: BP 120/60
[2017-12-11 22:52] VITALS: BP 132/80
[2017-12-12 07:11] VITALS: BP 120/64
--- NOTE | 2017-12-12 09:24 | PN- Housestaff ---
Subjective Follow-up For: Acute exacerbation of COPD. Subjective: Mr. Welch was seen and examined this morning. Resting comfortably in bed. States that he was unable to get much sleep last night and had to request multiple breathing treatments. This morning he feels slightly better owing to the fact that he recently was administered an IV dose of steroids. He denies any fever, chills, nausea, vomiting. States that he's been able to tolerate by mouth intake well. Review of Systems Constitutional: Reports: see HPI. Objective Last 24 Hrs of Vital Signs/I&O Vital Signs Date Time Temp Pulse Resp B/P B/P Pulse O2 O2 Flow FiO2 Mean Ox Delivery Rate 12/12 1429 98.0 67 21 120/70 94 Nasal Cannula 12/12 1012 98.5 62 20 120/64 12/12 1012 98.5 62 20 120/64 12/12 1011 98.5 62 20 120/64 12/12 1011 98.5 62 20 120/64 12/12 0809 93 Nasal 2.0L Cannula 12/12 0800 Nasal 2.0L Cannula 12/12 0711 98.5 62 20 120/64 92 Nasal 2.0L Cannula 12/12 0239 92 Nasal 2.0L Cannula 12/12 0000 Nasal 2.0L Cannula 12/11 2252 98.5 63 22 132/80 95 Nasal Cannula 12/11 1810 66 120/58 12/11 1618 92 Nasal 2.0L Cannula 12/11 1600 98 Nasal 2.0L Cannula Intake & Output 12/12 1600 12/12 0800 12/12 0000 Intake Total 400 500 Output Total Balance 400 500 Intake, Oral 400 500 Physical Exam General Appearance: Alert, Oriented X3, Cooperative Skin: Left Brest Lump noted. Non Mobile. Tender 3 cm x 3 cm. HEENT: Mucous Membr. moist/pink Cardiovascular: Normal S1, Normal S2 Lungs: Normal Air Movement, Expiratory Wheezing noted Abdomen: Normal Bowel Sounds, Soft, No Tenderness Neurological: Normal Speech Extremities: No Cyanosis, No Edema Vascular: Normal Pulses Current Medications: Current Medications Sig/Luis Start time Last Medication Dose Route Stop Time Status Admin Albuterol Sulfate 3 ML EVERY 4 HRS/AWAKE 12/11 1200 AC 12/12 INH 1136 Albuterol Sulfate 2 PUF Q4-6 PRN PRN 12/11 0900 AC INH Amiodarone HCl 200 MG DAILY 12/11 0900 AC 12/12 PO 1011 Atorvastatin Calcium 40 MG 1700 12/11 1700 AC 12/11 PO 1811 Cephalexin 500 MG TID 12/11 1400 AC 12/12 PO 1335 Digoxin 0.125 MG DAILY 12/11 1429 AC 12/12 PO 1011 Insulin Aspart 0 TIDAC 12/11 1200 AC 12/11 SC 1213 Ipratropium [place] 2.5 ML EVERY 4 HRS/AWAKE 12/11 1200 AC 12/12 INH 1136 Lisinopril 10 MG DAILY 12/11 0900 AC 12/12 PO 1012 Methylprednisolone 40 MG Q8 12/12 0600 AC 12/12 IV 1335 Metoprolol Succinate 25 MG DAILY 12/11 0900 AC 12/12 PO 1012 Rifampin 300 MG BID 12/11 0928 AC 12/12 PO 1012 Sodium Chloride 2 SPRAY Q4P PRN 12/12 0300 AC MEGHANN Spironolactone 25 MG DAILY 12/11 0901 AC 12/12 PO 1011 Warfarin Sodium 7.5 MG COUMADIN 1700 ONE 12/12 1700 AC PO 12/12 1701 Warfarin Sodium 7.5 MG COUMADIN 1700 ONE 12/11 1700 DC 12/11 PO 12/11 1701 1810 Last 24 Hrs of Lab/Chacorta Results Last 24 Hrs of Labs/Mics: Laboratory Tests 12/12/17 1005: Anion Gap 7, Estimated GFR 50 L, BUN/Creatinine Ratio 16.4, PT 12.3, INR 1.13, CBC w Diff NO MAN DIFF REQ, RBC 3.57 L, MCV 87.9, MCH 28.2, MCHC 32.1 L, RDW 15.7 H, MPV 8.1, Gran % 77.1 H, Lymphocytes % 8.7 L, Monocytes % 3.7, Eosinophils % 10.0 H, Basophils % 0.5, Absolute Granulocytes 3.2, Absolute Lymphocytes 0.4 L, Absolute Monocytes 0.2, Absolute Eosinophils 0.4, Absolute Basophils 0 Assessment/Plan Assessment: Mr Welch is a 72 YO M w/PMH significant for COPD on 2 L oxygen at baseline, recent septic joint with MSSA currently on 2 antibiotics (Keflex and rifampin), Paroxysamal A. fib, used to be on Eliquis recently switched to warfarin, CHF, diabetes not on any medication, steroid dependent, psoriasis, gout, CK D who presents to the hospital with worsening dyspnea and difficulty breathing. Chest x-ray negative for pneumonia, no leukocytosis. The patient has received IV methylprednisolone 1251, IV ceftriaxone 1 g 1, IV azithromycin 500 mg 1 and TRC/nebulizers in the ED. Problem list: #Worsening of dyspnea darleen attributed to AECOPD #Diabetes #Paroxysmal Atrial fibrillation on Warfarin with subtherapeutic INR #Septic joint with MSSA on 2 antibiotics #CHF, CKD Plan: -Continuie Magement on Gen Med steroids FS, 96, 121 to Q12 based on symptoms. of leukocytosis at this point however monitored closely and reassess PPI, digoxin, Keflex and Rifampin Problem List: 1. Paroxysmal A-fib 2. Contact dermatitis 3. COPD exacerbation Pain Ratin Pain Location: No Pain Pain Goal: Remain pain free Pain Plan: Tylenol PRN Tomorrow's Labs & Rationales: CBC: Monitor WBC BEP: Monitor NA INR: Monitor INR for coumadin dosing
[2017-12-12 10:36] LABS: ABSOLUTE BASOPHIL COUNT 0 /CUMM (0.0-0.2); ABSOLUTE EOSINOPHIL COUNT 0.4 /CUMM (0.0-0.7); ABSOLUTE GRANULOCYTE CT 3.2 /CUMM (1.4-6.5); ABSOLUTE LYMPH COUNT 0.4 /CUMM (1.2-3.4); ABSOLUTE MONOCYTE COUNT 0.2 /CUMM (0.10-0.60); BASOPHIL % 0.5 % (0.0-2.0); GRANULOCYTE % 77.1 % (42.2-75.2); HEMATOCRIT 31.4 % (42-52); MEAN CORPUSCULAR HGB 28.2 PG (27.0-31.0); MEAN CORPUSCULAR HGB CONC 32.1 G/DL (33.0-37.0); MEAN CORPUSCULAR VOLUME 87.9 FL (80.0-94.0); MEAN PLATELET VOLUME 8.1 FL (7.4-10.4); PLATELET COUNT 222 /CUMM (130-400); RBC DISTRIBUTION WIDTH 15.7 % (11.5-14.5); RED BLOOD CELL CT 3.57 /CUMM (4.70-6.10); WHITE BLOOD CELL COUNT 4.2 /CUMM (4.8-10.8)
--- NOTE | 2017-12-12 11:40 | PN- Att Addend ---
Attending Addendum Attending Brief Note Patient states he had a bad night, needed to call twice for breathing treatments his nose is congested, medication was ordered his skin is about the same he was scheduled for an elective mammogram today, this will be rescheduled as an outpatient today his breathing is improved he still has some wheezes but is moving more air. Vital signs stable no fever with no other changes continue present treatment 24 TOTALS 12/12 0000 12/11 0000 Intake Total 1470 Output Total Balance 1470 Intake, IV 250 Intake, Oral 1220 Number 0 Bowel Movements Patient 163 lb Weight Weight Bed scale Measurement Method Current Medications Sig/Luis Start time Last Medication Dose Route Stop Time Status Admin Albuterol Sulfate 3 ML EVERY 4 HRS/AWAKE 12/11 1200 AC 12/12 INH 1136 Albuterol Sulfate 2 PUF Q4-6 PRN PRN 12/11 0900 AC INH Amiodarone HCl 200 MG DAILY 12/11 0900 AC 12/12 PO 1011 Atorvastatin Calcium 40 MG 1700 12/11 1700 AC 12/11 PO 1811 Cephalexin 500 MG TID 12/11 1400 AC 12/12 PO 1011 Digoxin 0.125 MG DAILY 12/11 1429 AC 12/12 PO 1011 Insulin Aspart 0 TIDAC 12/11 1200 AC 12/11 SC 1213 Ipratropium [place] 2.5 ML EVERY 4 HRS/AWAKE 12/11 1200 AC 12/12 INH 1136 Lisinopril 10 MG DAILY 12/11 0900 AC 12/12 PO 1012 Methylprednisolone 40 MG Q8 12/12 0600 AC 12/12 IV 0600 Metoprolol Succinate 25 MG DAILY 12/11 0900 AC 12/12 PO 1012 Rifampin 300 MG BID 12/11 0928 AC 12/12 PO 1012 Sodium Chloride 2 SPRAY Q4P PRN 12/12 0300 AC MEGHANN Spironolactone 25 MG DAILY 12/11 0901 AC 12/12 PO 1011 Warfarin Sodium 7.5 MG COUMADIN 1700 ONE 12/11 1700 DC 12/11 PO 12/11 1701 1810 Laboratory Tests 12/12 12/11 1005 0913 Chemistry Sodium (137 - 145 mmol/L) 138 Potassium (3.5 - 5.1 mmol/L) 4.4 Chloride (98 - 107 mmol/L) 98 Carbon Dioxide (22 - 30 mmol/L) 34 H Anion Gap (5 - 16) 7 BUN (9 - 20 mg/dL) 23 H Creatinine (0.7 - 1.2 mg/dL) 1.4 H Estimated GFR (>60 ml/min) 50 L BUN/Creatinine Ratio (7 - 25 %) 16.4 Lactic Acid Cancelled Coagulation PT Pending INR Pending Hematology CBC w Diff NO MAN DIFF REQ WBC (4.8 - 10.8 /CUMM) 4.2 L RBC (4.70 - 6.10 /CUMM) 3.57 L Hgb (14.0 - 18.0 G/DL) 10.1 L Hct (42 - 52 %) 31.4 L MCV (80.0 - 94.0 FL) 87.9 MCH (27.0 - 31.0 PG) 28.2 MCHC (33.0 - 37.0 G/DL) 32.1 L RDW (11.5 - 14.5 %) 15.7 H Plt Count (130 - 400 /CUMM) 222 MPV (7.4 - 10.4 FL) 8.1 Gran % (42.2 - 75.2 %) 77.1 H Lymphocytes % (20.5 - 51.1 %) 8.7 L Monocytes % (1.7 - 9.3 %) 3.7 Eosinophils % (0 - 5 %) 10.0 H Basophils % (0.0 - 2.0 %) 0.5 Absolute Granulocytes (1.4 - 6.5 /CUMM) 3.2 Absolute Lymphocytes (1.2 - 3.4 /CUMM) 0.4 L Absolute Monocytes (0.10 - 0.60 /CUMM) 0.2 Absolute Eosinophils (0.0 - 0.7 /CUMM) 0.4 Absolute Basophils (0.0 - 0.2 /CUMM) 0 12/11 12/11 0632 0620 Blood Gas pH (7.35 - 7.45 PH) 7.40 pCO2 (35 - 45 TORR) 46 H pO2 (80 - 100 TORR) 72 L HCO3 (21 - 28 MEQ/L) 28 ABG O2 Sat (Measured) (>96.0 %) 93.0 L P-50 (Temp Corrected) N Carboxyhemoglobin (1.5 - 5.0 %) 0.3 L O2 Concentration % 3L O2 Delivery Method N/C Chemistry Sodium (137 - 145 mmol/L) 139 Potassium (3.5 - 5.1 mmol/L) 4.2 Chloride (98 - 107 mmol/L) 97 L Carbon Dioxide (22 - 30 mmol/L) 34 H Anion Gap (5 - 16) 8 BUN (9 - 20 mg/dL) 24 H Creatinine (0.7 - 1.2 mg/dL) 1.3 H Estimated GFR (>60 ml/min) 54 L BUN/Creatinine Ratio (7 - 25 %) 18.5 Glucose (65 - 99 mg/dL) 106 H Lactic Acid (0.7 - 2.1 mmol/L) 0.8 Calcium (8.4 - 10.2 mg/dL) 9.5 Total Bilirubin (0.2 - 1.3 mg/dL) 0.3 AST (17 - 59 U/L) 16 L ALT (21 - 72 U/L) 23 Alkaline Phosphatase (< 127 U/L) 53 Troponin I (<0.11 ng/ml) 0.02 Total Protein (6.3 - 8.2 g/dL) 6.4 Albumin (3.5 - 5.0 g/dL) 3.8 Globulin (1.9 - 4.2 gm/dL) 2.6 Albumin/Globulin Ratio (1.1 - 2.2 %) 1.5 Coagulation PT (9.4 - 12.5 SEC) 12.5 INR (0.90 - 1.17) 1.15 APTT (25 - 37 SEC) 31 Hematology CBC w Diff MAN DIFF ORDERED WBC (4.8 - 10.8 /CUMM) 8.2 RBC (4.70 - 6.10 /CUMM) 3.92 L Hgb (14.0 - 18.0 G/DL) 11.1 L Hct (42 - 52 %) 34.2 L MCV (80.0 - 94.0 FL) 87.3 MCH (27.0 - 31.0 PG) 28.2 MCHC (33.0 - 37.0 G/DL) 32.3 L RDW (11.5 - 14.5 %) 15.4 H Plt Count (130 - 400 /CUMM) 229 MPV (7.4 - 10.4 FL) 7.7 Gran % (42.2 - 75.2 %) 56.5 Lymphocytes % (20.5 - 51.1 %) 10.0 L Monocytes % (1.7 - 9.3 %) 6.5 Eosinophils % (0 - 5 %) 26.6 H Basophils % (0.0 - 2.0 %) 0.4 Absolute Granulocytes (1.4 - 6.5 /CUMM) 4.6 Segmented Neutrophils (42.2 - 75.2 %) 67 Absolute Lymphocytes (1.2 - 3.4 /CUMM) 0.8 L Lymphocytes (20.5 - 51.1 %) 10 L Monocytes (1.7 - 9.3 %) 2 Absolute Monocytes (0.10 - 0.60 /CUMM) 0.5 Eosinophils (0 - 5.0 %) 21 H Absolute Eosinophils (0.0 - 0.7 /CUMM) 2.2 Absolute Basophils (0.0 - 0.2 /CUMM) 0 Platelet Estimate (ADEQUATE) ADEQUATE Hypochromic-Microcytic 1+ Poikilocytosis 1+ Ovalocytes 1+ Miscellaneous Phlebotomy Draw Site RIGHT RADIAL Other Body Source F[place] Total RBCs Counted (%) 100 Toxicology Digoxin (0.8 - 2.0 ng/mL) 0.6 L Vital Signs Date Time Temp Pulse Resp B/P B/P Pulse O2 O2 Flow FiO2 Mean Ox Delivery Rate 12/12 1012 98.5 62 20 120/64 12/12 1012 98.5 62 20 120/64 12/12 1011 98.5 62 20 120/64 12/12 1011 98.5 62 20 120/64 12/12 0809 93 Nasal 2.0L Cannula 12/12 0800 Nasal 2.0L Cannula 12/12 0711 98.5 62 20 120/64 92 Nasal 2.0L Cannula 12/12 0239 92 Nasal 2.0L Cannula 12/12 0000 Nasal 2.0L Cannula 12/11 2252 98.5 63 22 132/80 95 Nasal Cannula 12/11 1810 66 120/58 12/11 1618 92 Nasal 2.0L Cannula 12/11 1600 98 Nasal 2.0L Cannula 12/11 1407 98.0 81 22 120/60 92 16 1212 77 142/70 12/11 1211 77 142/70 12/11 1211 77 142/70
[2017-12-12 11:54] LABS: PT 12.3 SEC (9.4-12.5)
[2017-12-12 14:29] VITALS: BP 120/70
[2017-12-12 22:33] VITALS: BP 120/64
--- NOTE | 2017-12-13 07:33 | PN- Housestaff ---
Subjective Follow-up For: aecopd Subjective: Mr. Welch was seen and examined this morning. Resting comfortably in bed. States that he feels better and was able to get some more rest last night. States that he got a nasal spray which helped his breathing. Denies any fever, chills, ausea, vomiting. Has been tolerating by mouth intake well. Review of Systems Constitutional: Reports: see HPI. Objective Last 24 Hrs of Vital Signs/I&O Vital Signs Date Time Temp Pulse Resp B/P B/P Pulse O2 O2 Flow FiO2 Mean Ox Delivery Rate 12/13 0853 98.8 75 20 120/78 91 Nasal 2.0L Cannula 12/13 0837 98.5 68 21 120/64 /18 0837 98.5 68 21 120/64 18 0836 98.5 68 21 120/64 18 0836 98.5 68 21 120/64 12/13 0800 Nasal 2.0L Cannula 12/13 0749 92 Nasal 2.0L Cannula 12/13 0000 Nasal 2.0L Cannula 12/12 2233 98.5 68 21 120/64 95 Nasal Cannula 12/12 1715 96 Nasal 2.0L Cannula 12/12 1429 98.0 67 21 120/70 94 Nasal Cannula Intake & Output 12/13 1600 12/13 0800 12/13 0000 Intake Total 460 460 Output Total Balance 460 460 Intake, Oral 460 460 Physical Exam General Appearance: Alert, Oriented X3, Cooperative Skin: Left Breast lump noted. 3.5 cm X 3.5 cm. non mobile. HEENT: Mucous Membr. moist/pink Cardiovascular: Regular Rate, Normal S1, Normal S2 Lungs: Normal Air Movement, Diffuse Expiratory wheezing Abdomen: Normal Bowel Sounds, Soft, No Tenderness Neurological: Normal Gait, Normal Speech, Strength at 5/5 X4 Ext Extremities: No Clubbing, No Cyanosis, No Edema Vascular: Normal Pulses Current Medications: Current Medications Sig/Luis Start time Last Medication Dose Route Stop Time Status Admin Albuterol Sulfate 3 ML EVERY 4 HRS/AWAKE 12/11 1200 AC 12/13 INH 0746 Albuterol Sulfate 2 PUF Q4-6 PRN PRN 12/11 09 AC INH Amiodarone HCl 200 MG DAILY 12/11 0900 AC 12/13 PO 0836 Atorvastatin Calcium 40 MG 1700 12/11 1700 AC 12/12 PO 1748 Cephalexin 500 MG TID 12/11 1400 AC 12/13 PO 0836 Digoxin 0.125 MG DAILY 12/11 1429 AC 12/13 PO 0836 Insulin Aspart 0 TIDAC 12/11 1200 AC 12/12 SC 1747 Ipratropium [place] 2.5 ML EVERY 4 HRS/AWAKE 12/11 1200 AC 12/13 INH 0746 Lisinopril 10 MG DAILY 12/11 0900 AC 12/13 PO 0837 Methylprednisolone 40 MG Q12 12/13 0900 AC 12/13 IV 0837 Methylprednisolone 40 MG Q8 12/12 0600 MD 12/13 IV 0617 Metoprolol Succinate 25 MG DAILY 12/11 0900 12/13 PO 0837 Patient Medication 1 ED ONE ONE 12/12 1630 DC Teaching ED 12/12 1631 Rifampin 300 MG BID 12/11 0928 12/13 PO 0837 Sodium Chloride 2 SPRAY Q4P PRN 12/12 0300 AC 12/12 MEGHANN 2050 Spironolactone 25 MG DAILY 12/11 0901 12/13 PO 0836 Warfarin Sodium 7.5 MG COUMADIN 1700 ONE 12/13 1700 UNVr PO 12/13 1701 Warfarin Sodium 7.5 MG COUMADIN 1700 ONE 12/12 1700 DC 12/12 PO 12/12 1701 1748 Last 24 Hrs of Lab/Chacorta Results Last 24 Hrs of Labs/Mics: Laboratory Tests 12/13/17 0800: Anion Gap 7, Estimated GFR 54 L, BUN/Creatinine Ratio 20.8, PT 12.4, INR 1.14, CBC w Diff NO MAN DIFF REQ, RBC 3.64 L, MCV 87.7, MCH 28.3, MCHC 32.3 L, RDW 15.4 H, MPV 8.2, Gran % 73.7, Lymphocytes % 11.7 L, Monocytes % 7.5, Eosinophils % 6.7 H, Basophils % 0.4, Absolute Granulocytes 4.9, Absolute Lymphocytes 0.8 L, Absolute Monocytes 0.5, Absolute Eosinophils 0.4, Absolute Basophils 0 Assessment/Plan Assessment: DRAFT Mr Welch is a 72 YO M w/PMH significant for COPD on 2 L oxygen at baseline, recent septic joint with MSSA currently on 2 antibiotics (Keflex and rifampin), Paroxysamal A. fib, used to be on Eliquis recently switched to warfarin, CHF, diabetes not on any medication, steroid dependent, psoriasis, gout, CK D who presents to the hospital with worsening dyspnea and difficulty breathing. Chest x-ray negative for pneumonia, no leukocytosis. The patient has received IV methylprednisolone 1251, IV ceftriaxone 1 g 1, IV azithromycin 500 mg 1 and TRC/nebulizers in the ED. Problem list: #AECOPD #Diabetes #Paroxysmal Atrial fibrillation on Warfarin with subtherapeutic INR #Septic joint with MSSA on 2 antibiotics #CHF, CKD Plan: -Continuie Magement on Gen Med steroids FS, 103, 148 12/14 of leukocytosis at this point however monitored closely and reassess PPI, digoxin, Keflex and Rifampin Problem List: 1. Paroxysmal A-fib 2. COPD exacerbation Pain Ratin Pain Location: No Pain Pain Goal: Remain pain free Pain Plan: Tylenol PRN Tomorrow's Labs & Rationales: BEP INR: On coumadin
[2017-12-13 08:53] VITALS: BP 120/78
[2017-12-13 09:14] LABS: PT 12.4 SEC (9.4-12.5)
[2017-12-13 09:31] LABS: ABSOLUTE BASOPHIL COUNT 0 /CUMM (0.0-0.2); ABSOLUTE LYMPH COUNT 0.8 /CUMM (1.2-3.4); ABSOLUTE MONOCYTE COUNT 0.5 /CUMM (0.10-0.60)
[2017-12-13 09:52] LABS: ABSOLUTE EOSINOPHIL COUNT 0.4 /CUMM (0.0-0.7); ABSOLUTE GRANULOCYTE CT 4.9 /CUMM (1.4-6.5); BASOPHIL % 0.4 % (0.0-2.0); EOSINOPHIL % 6.7 % (0-5); GRANULOCYTE % 73.7 % (42.2-75.2); HEMATOCRIT 31.9 % (42-52); MEAN CORPUSCULAR HGB 28.3 PG (27.0-31.0); MEAN CORPUSCULAR HGB CONC 32.3 G/DL (33.0-37.0); MEAN CORPUSCULAR VOLUME 87.7 FL (80.0-94.0); MEAN PLATELET VOLUME 8.2 FL (7.4-10.4); PLATELET COUNT 228 /CUMM (130-400); RBC DISTRIBUTION WIDTH 15.4 % (11.5-14.5); RED BLOOD CELL CT 3.64 /CUMM (4.70-6.10)
[2017-12-13 09:54] LABS: WHITE BLOOD CELL COUNT 6.6 /CUMM (4.8-10.8)
--- NOTE | 2017-12-13 10:48 | PN- Att Addend ---
Attending Addendum Attending Brief Note Patient overall better, still not at baseline with his breathing, still requiring breathing treatments Vital signs are stable no fever no major changes on physical, WBC 6600 Will continue 1 more day of IV steroids, is stable in a.m. then switched to by mouth and probably start disposition plans. 24 TOTALS 12/13 0000 12/12 0000 Intake Total 1660 1470 Output Total 400 Balance 1260 1470 Intake, IV 250 Intake, Oral 1660 1220 Number 0 Bowel Movements Output, Urine 400 Patient 163 lb Weight Weight Bed scale Measurement Method Current Medications Sig/Luis Start time Last Medication Dose Route Stop Time Status Admin Albuterol Sulfate 3 ML EVERY 4 HRS/AWAKE 12/11 1200 AC 12/13 INH 0746 Albuterol Sulfate 2 PUF Q4-6 PRN PRN 12/11 09 AC INH Amiodarone HCl 200 MG DAILY 12/11 0900 AC 12/13 PO 0836 Atorvastatin Calcium 40 MG 1700 12/11 1700 AC 12/12 PO 1748 Cephalexin 500 MG TID 12/11 1400 AC 12/13 PO 0836 Digoxin 0.125 MG DAILY 12/11 1429 AC 12/13 PO 0836 Insulin Aspart 0 TIDAC 12/11 1200 AC 12/12 SC 1747 Ipratropium [place] 2.5 ML EVERY 4 HRS/AWAKE 12/11 1200 AC 12/13 INH 0746 Lisinopril 10 MG DAILY 12/11 0900 AC 12/13 PO 0837 Methylprednisolone 40 MG Q12 12/13 0900 AC 12/13 IV 0837 Methylprednisolone 40 MG Q8 12/12 0600 DC 12/13 IV 0617 Metoprolol Succinate 25 MG DAILY 12/11 0900 12/13 PO 0837 Patient Medication 1 ED ONE ONE 12/12 1630 DC Teaching ED 12/12 1631 Rifampin 300 MG BID 12/11 0928 AC 12/13 PO 0837 Sodium Chloride 2 SPRAY Q4P PRN 12/12 0300 AC 12/12 MEGHANN 2050 Spironolactone 25 MG DAILY 12/11 0901 AC 12/13 PO 0836 Warfarin Sodium 7.5 MG COUMADIN 1700 ONE 12/12 1700 DC 12/12 PO 12/12 1701 1748 Laboratory Tests 12/13/17 0800: Anion Gap 7, Estimated GFR 54 L, BUN/Creatinine Ratio 20.8, PT 12.4, INR 1.14, CBC w Diff NO MAN DIFF REQ, RBC 3.64 L, MCV 87.7, MCH 28.3, MCHC 32.3 L, RDW 15.4 H, MPV 8.2, Gran % 73.7, Lymphocytes % 11.7 L, Monocytes % 7.5, Eosinophils % 6.7 H, Basophils % 0.4, Absolute Granulocytes 4.9, Absolute Lymphocytes 0.8 L, Absolute Monocytes 0.5, Absolute Eosinophils 0.4, Absolute Basophils 0 12/12/17 1005: Anion Gap 7, Estimated GFR 50 L, BUN/Creatinine Ratio 16.4, PT 12.3, INR 1.13, CBC w Diff NO MAN DIFF REQ, RBC 3.57 L, MCV 87.9, MCH 28.2, MCHC 32.1 L, RDW 15.7 H, MPV 8.1, Gran % 77.1 H, Lymphocytes % 8.7 L, Monocytes % 3.7, Eosinophils % 10.0 H, Basophils % 0.5, Absolute Granulocytes 3.2, Absolute Lymphocytes 0.4 L, Absolute Monocytes 0.2, Absolute Eosinophils 0.4, Absolute Basophils 0 Vital Signs Date Time Temp Pulse Resp B/P B/P Pulse O2 O2 Flow FiO2 Mean Ox Delivery Rate 12/13 0853 98.8 75 20 120/78 91 Nasal 2.0L Cannula 12/13 0837 98.5 68 21 120/12/13 0837 98.5 68 21 120/64 12/13 0836 98.5 68 21 120/64 12/13 0836 98.5 68 21 120/12/13 0800 Nasal 2.0L Cannula 12/13 0749 92 Nasal 2.0L Cannula 12/13 0000 Nasal 2.0L Cannula 12/12 2233 98.5 68 21 120/64 95 Nasal Cannula 12/12 1715 96 Nasal 2.0L Cannula 12/12 1429 98.0 67 21 120/70 94 Nasal Cannula INR still subtherapeutic
[2017-12-13 14:02] VITALS: BP 120/70
[2017-12-13 22:06] VITALS: BP 96/60
[2017-12-14 06:33] VITALS: BP 112/60
[2017-12-14 09:00] LABS: PT 11.5 SEC (9.4-12.5)
[2017-12-14 14:43] VITALS: BP 102/58
--- NOTE | 2017-12-14 16:05 | PN- Att Addend ---
Attending Addendum Attending Brief Note Intake & Output 12/14 1600 12/14 0400 12/13 1600 12/13 0400 12/12 1600 12/12 0400 Intake Total 957 958 5875 460 1200 500 Output Total 600 400 Balance 620 240 660 460 800 500 Intake, Oral 332 549 2999 460 1200 500 Output, Urine 600 400 Current Medications Sig/Luis Start time Last Medication Dose Route Stop Time Status Admin Albuterol Sulfate 3 ML EVERY 4 HRS/AWAKE 12/11 1200 AC 12/14 INH 1213 Albuterol Sulfate 2 PUF Q4-6 PRN PRN 12/11 0900 AC 12/13 INH 2140 Amiodarone HCl 200 MG DAILY 12/11 0900 AC 12/14 PO 0907 Atorvastatin Calcium 40 MG 1700 12/11 1700 AC 12/13 PO 1758 Cephalexin 500 MG TID 12/11 1400 AC 12/14 PO 1347 Digoxin 0.125 MG DAILY 12/11 1429 AC 12/14 PO 0908 Insulin Aspart 0 TIDAC 12/11 1200 AC 12/12 SC 1747 Ipratropium [place] 2.5 ML EVERY 4 HRS/AWAKE 12/11 1200 AC 12/14 INH 1213 Lisinopril 10 MG DAILY 12/11 0900 AC 12/14 PO 0908 Methylprednisolone 40 MG Q12 12/13 0900 AC 12/14 IV 12/14 2300 0912 Metoprolol Succinate 25 MG DAILY 12/11 0900 AC 12/14 PO 0908 Prednisone 40 MG DAILY 12/15 0900 AC PO Rifampin 300 MG BID 12/11 0928 12/14 PO 0908 Sodium Chloride 2 SPRAY Q4P PRN 12/12 0300 12/13 MEGHANN 2139 Spironolactone 25 MG DAILY 12/11 0901 12/14 PO 0911 Warfarin Sodium 7.5 MG COUMADIN 1700 ONE 12/14 1700 DC PO 12/14 1701 Warfarin Sodium 9 MG COUMADIN 1700 ONE 12/14 1700 AC PO 12/14 170 Warfarin Sodium 7.5 MG COUMADIN 1700 ONE 12/13 1700 DC 12/13 PO 12/13 1701 1758 Laboratory Tests 12/14/17 0756: Anion Gap 9, Estimated GFR 46 L, BUN/Creatinine Ratio 20.7, PT 11.5, INR 1.05 12/13/17 0800: Anion Gap 7, Estimated GFR 54 L, BUN/Creatinine Ratio 20.8, PT 12.4, INR 1.14, CBC w Diff NO MAN DIFF REQ, RBC 3.64 L, MCV 87.7, MCH 28.3, MCHC 32.3 L, RDW 15.4 H, MPV 8.2, Gran % 73.7, Lymphocytes % 11.7 L, Monocytes % 7.5, Eosinophils % 6.7 H, Basophils % 0.4, Absolute Granulocytes 4.9, Absolute Lymphocytes 0.8 L, Absolute Monocytes 0.5, Absolute Eosinophils 0.4, Absolute Basophils 0 12/12/17 1005: Anion Gap 7, Estimated GFR 50 L, BUN/Creatinine Ratio 16.4, PT 12.3, INR 1.13, CBC w Diff NO MAN DIFF REQ, RBC 3.57 L, MCV 87.9, MCH 28.2, MCHC 32.1 L, RDW 15.7 H, MPV 8.1, Gran % 77.1 H, Lymphocytes % 8.7 L, Monocytes % 3.7, Eosinophils % 10.0 H, Basophils % 0.5, Absolute Granulocytes 3.2, Absolute Lymphocytes 0.4 L, Absolute Monocytes 0.2, Absolute Eosinophils 0.4, Absolute Basophils 0 Vital Signs Date Time Temp Pulse Resp B/P B/P Pulse O2 O2 Flow FiO2 Mean Ox Delivery Rate 12/14 1443 98.2 92 24 102/58 84 12/14 0908 70 126/56 12/14 0908 70 126/56 12/14 0908 70 126/56 12/14 0907 70 126/56 12/14 0820 95 Nasal 2.0L Cannula 12/14 0800 95 Nasal 2.0L Cannula 12/14 0633 97.8 68 20 112/60 93 Nasal 2.0L Cannula 12/14 0000 92 Nasal 2.0L Cannula 12/13 2206 98.7 73 18 96/60 94 Nasal Cannula Patient feeling better, ambulating with oxygen still a little short of breath with exertion Vital signs are stable not no fever. Less wheezes today INR still sub therapeutic, despite pretty good doses of Coumadin and will adjust the dose a little bit today. Switched to by mouth steroids is stable start disposition plans in the morning.
[2017-12-14 22:37] VITALS: BP 100/60
[2017-12-15 06:20] VITALS: BP 104/56
[2017-12-15 08:26] LABS: PT 12.3 SEC (9.4-12.5)
[2017-12-15 08:30] LABS: ABSOLUTE BASOPHIL COUNT 0 /CUMM (0.0-0.2); ABSOLUTE EOSINOPHIL COUNT 0.5 /CUMM (0.0-0.7); ABSOLUTE GRANULOCYTE CT 4.3 /CUMM (1.4-6.5); ABSOLUTE LYMPH COUNT 1.3 /CUMM (1.2-3.4); ABSOLUTE MONOCYTE COUNT 0.8 /CUMM (0.10-0.60); BASOPHIL % 0.6 % (0.0-2.0); EOSINOPHIL % 6.8 % (0-5); GRANULOCYTE % 62.6 % (42.2-75.2); HEMATOCRIT 31.2 % (42-52); MEAN CORPUSCULAR HGB 28.6 PG (27.0-31.0); MEAN CORPUSCULAR HGB CONC 32.6 G/DL (33.0-37.0); MEAN CORPUSCULAR VOLUME 87.8 FL (80.0-94.0); MEAN PLATELET VOLUME 8.3 FL (7.4-10.4); PLATELET COUNT 221 /CUMM (130-400); RBC DISTRIBUTION WIDTH 16.2 % (11.5-14.5); RED BLOOD CELL CT 3.55 /CUMM (4.70-6.10); WHITE BLOOD CELL COUNT 6.8 /CUMM (4.8-10.8)
--- NOTE | 2017-12-15 12:23 | Patient Discharge Instructions ---
Acute Coronary Syndrome Inclusion Criteria At DC or during hospital stay patient has or had the following: Discharge Core Measures Meds if any: Prescribed or Continued at Discharge Meds if any: NOT Prescribed or Continued at Discharge Congestive Heart Failure Inclusion Criteria At DC or during hospital stay patient has or had the following: Discharge Core Measures Meds if any: Prescribed or Continued at Discharge Meds if any: NOT Prescribed or Continued at Discharge Cerebrovascular accident Inclusion Criteria At DC or during hospital stay patient has or had the following: CVA/TIA Diagnosis No Discharge Core Measures Meds if any: Prescribed or Continued at Discharge Meds if any: NOT Prescribed or Continued at Discharge Venous thromboembolism Discharge Core Measures - Per Current guidelines, there needs to be overlap - treatment for the first 5 days of Warfarin therapy. - If discharged on Warfarin prior to 5 days of - overlap therapy, the patient will need to be - assessed for post discharge needs including - *Post discharge parental anticoagulation - *Warfarin and/or parental anticoagulation education - *Follow up date to check INR post discharge Meds if any: Prescribed or Continued at Discharge Note: Overlap Therapy is Warfarin and Anticoagulant Meds if any: NOT Prescribed or Continued at Discharge
[2017-12-15 14:32] VITALS: BP 110/58
--- NOTE | 2017-12-15 16:11 | PN- Att Addend ---
Attending Addendum Attending Brief Note Patient states again he did not have a good night still short of breath with exertion or in his oxygen Vital signs are stable has no fever and no major changes on physical area need to monitor at least 1 more day or stability before starting disposition plans. OTHER problem is the sub therapeutic INR despite high doses of warfarin and will give 10 mg today and recheck in the morning that reason the patient was switched back to Coumadin was the fact that he is on rifampin that interacts with gutierrez anticoagulant with it might interfere into with the Coumadin. His INR is still low in the morning will ask cardiology for suggestions Intake & Output 12/15 1600 12/15 0400 12/14 1600 12/14 0400 12/13 1600 12/13 0400 Intake Total 500 6247 883 6256 460 Output Total 600 Balance 500 1370 240 660 460 Intake, Oral 500 3013 290 7382 460 Number 0 Bowel Movements Output, Urine 600 Current Medications Sig/Luis Start time Last Medication Dose Route Stop Time Status Admin Albuterol Sulfate 3 ML EVERY 4 HRS/AWAKE 12/11 1200 AC 12/15 INH 1146 Albuterol Sulfate 2 PUF Q4-6 PRN PRN 12/11 0900 AC 12/15 INH 0423 Amiodarone HCl 200 MG DAILY 12/11 0900 AC 12/15 PO 0924 Atorvastatin Calcium 40 MG 1700 12/11 1700 AC 12/14 PO 1704 Budesonide/ 2 PUF BID 12/15 1300 AC 12/15 Formoterol Fumarate INH 1422 Cephalexin 500 MG TID 12/11 1400 AC 12/15 PO 1421 Digoxin 0.125 MG DAILY 12/11 1429 AC 12/15 PO 0924 Guaifenesin 600 MG Q12 12/14 2100 AC 12/15 PO 0924 Insulin Aspart 0 TIDAC 12/11 1200 AC 12/12 SC 1747 Ipratropium [place] 2.5 ML EVERY 4 HRS/AWAKE 12/11 1200 AC 12/15 INH 1146 Lisinopril 10 MG DAILY 12/11 0900 AC 12/15 PO 0924 Methylprednisolone 40 MG Q12 12/13 0900 DC 12/14 IV 12/14 2300 205 Metoprolol Succinate 25 MG DAILY 12/11 09 AC 12/15 PO 0924 Prednisone 40 MG DAILY 12/15 09 AC 12/15 PO 0924 Rifampin 300 MG BID 12/11 0928 AC 12/15 PO 0924 Sodium Chloride 2 SPRAY Q4P PRN 12/12 0300 AC 12/14 MEGHANN 2245 Spironolactone 25 MG DAILY 12/11 0901 AC 12/15 PO 0924 Warfarin Sodium 10 MG COUMADIN 170 ONE 12/15 1700 AC PO 12/15 1701 Warfarin Sodium 9 MG COUMADIN 170 ONE 12/14 1700 DC 12/14 PO 12/14 1701 1705 Laboratory Tests 12/15/17 0720: Anion Gap 6, Estimated GFR 50 L, BUN/Creatinine Ratio 22.9, PT 12.3, INR 1.13, CBC w Diff NO MAN DIFF REQ, RBC 3.55 L, MCV 87.8, MCH 28.6, MCHC 32.6 L, RDW 16.2 H, MPV 8.3, Gran % 62.6, Lymphocytes % 18.8 L, Monocytes % 11.2 H, Eosinophils % 6.8 H, Basophils % 0.6, Absolute Granulocytes 4.3, Absolute Lymphocytes 1.3, Absolute Monocytes 0.8 H, Absolute Eosinophils 0.5, Absolute Basophils 0 12/14/17 0756: Anion Gap 9, Estimated GFR 46 L, BUN/Creatinine Ratio 20.7, PT 11.5, INR 1.05 12/13/17 0800: Anion Gap 7, Estimated GFR 54 L, BUN/Creatinine Ratio 20.8, PT 12.4, INR 1.14, CBC w Diff NO MAN DIFF REQ, RBC 3.64 L, MCV 87.7, MCH 28.3, MCHC 32.3 L, RDW 15.4 H, MPV 8.2, Gran % 73.7, Lymphocytes % 11.7 L, Monocytes % 7.5, Eosinophils % 6.7 H, Basophils % 0.4, Absolute Granulocytes 4.9, Absolute Lymphocytes 0.8 L, Absolute Monocytes 0.5, Absolute Eosinophils 0.4, Absolute Basophils 0 Vital Signs Date Time Temp Pulse Resp B/P B/P Pulse O2 O2 Flow FiO2 Mean Ox Delivery Rate 12/15 1432 98.2 76 24 110/58 94 12/16 923 71 110/58 12/16 923 71 110/58 12/16 923 71 110/58 12/16 923 71 110/58 12/15 0819 92 Nasal 2.0L Cannula 05/20 0620 98.6 67 22 104/56 95 Nasal 2.0L Cannula 12/15 0000 Nasal 2.0L Cannula 12/14 2236 98.3 62 22 100/60 98 Nasal Cannula 12/14 1630 94 Nasal 2.0L Cannula
[2017-12-15] MEDS ORDERED: PREDNISONE10 M2 PO (19:45)
[2017-12-15 22:08] VITALS: BP 130/60
[2017-12-16 06:20] VITALS: BP 118/56
--- NOTE | 2017-12-16 07:21 | PN- Housestaff ---
Subjective Follow-up For: AECOPD Subjective: Mr Welch was seen and examined this morning. Resting comfortably in a chair beside his bed. Patient states that overnight he continued to experience some dyspnea and was unable to sleep very well. This morning he appears a little more comfortable after receiving a breathing treatment. He appears to endorse continued dyspnea on exertion. Denies any fever, chills, nausea, vomiting. Denies any sputum production. Review of Systems Constitutional: Reports: see HPI. Objective Last 24 Hrs of Vital Signs/I&O Vital Signs Date Time Temp Pulse Resp B/P B/P Pulse O2 O2 Flow FiO2 Mean Ox Delivery Rate 12/16 0910 110/60 12/16 0909 72 110/60 12/16 0909 110/60 12/16 0909 110/60 12/16 0800 93 Nasal 2.0L Cannula 12/16 0756 93 Nasal 2.0L Cannula 12/16 0620 98.0 72 20 118/56 91 Nasal Cannula 12/16 0000 Nasal 2.0L Cannula 12/15 2208 98.3 64 16 130/60 97 12/15 1630 95 Nasal 2.0L Cannula 12/15 1600 96 Nasal 2.0L Cannula 12/15 1432 98.2 76 24 110/58 94 Intake & Output 12/16 1600 12/16 0800 12/16 0000 Intake Total 600 600 Output Total Balance 600 600 Intake, Oral 600 600 Patient 80.059 kg 80.059 kg Weight Physical Exam General Appearance: Alert, Oriented X3, Cooperative HEENT: Mucous Membr. moist/pink Cardiovascular: Regular Rate, Normal S1, Normal S2 Lungs: Normal Air Movement Abdomen: Normal Bowel Sounds, Soft, No Tenderness Neurological: Normal Speech Extremities: No Edema Current Medications: Current Medications Sig/Luis Start time Last Medication Dose Route Stop Time Status Admin Albuterol Sulfate 3 ML EVERY 4 HRS/AWAKE 12/11 1200 AC 12/16 INH 1206 Albuterol Sulfate 2 PUF Q4-6 PRN PRN 12/11 09 AC 12/16 INH 0409 Amiodarone HCl 200 MG DAILY 12/11 0900 AC 12/16 PO 0909 Atorvastatin Calcium 40 MG 1700 12/11 1700 AC 12/15 PO 1706 Budesonide/ 2 PUF BID 12/15 1300 AC 12/16 Formoterol Fumarate INH 0910 Cephalexin 500 MG TID 12/11 1400 AC 12/16 PO 1313 Digoxin 0.125 MG DAILY 12/11 1429 AC 12/16 PO 0910 Guaifenesin 600 MG Q12 12/14 2100 AC 12/16 PO 0909 Insulin Aspart 0 TIDAC 12/11 1200 AC 12/15 SC 1706 Ipratropium [place] 2.5 ML EVERY 4 HRS/AWAKE 12/11 1200 DC 12/16 INH 0733 Lisinopril 10 MG DAILY 12/11 0900 AC 12/16 PO 0909 Metoprolol Succinate 25 MG DAILY 12/11 0900 AC 12/16 PO 0909 Prednisone 40 MG DAILY 12/15 0900 AC 12/16 PO 0909 Rifampin 300 MG BID 12/11 0928 AC 12/16 PO 0909 Sodium Chloride 2 SPRAY Q4P PRN 12/12 0300 AC 12/16 MEGHANN 0702 Spironolactone 25 MG DAILY 12/11 0901 AC 12/16 PO 0909 Tiotropium [place] 1 PUF DAILY 12/16 1145 AC 12/16 INH 1314 Warfarin Sodium 10 MG COUMADIN 1700 ONE 12/16 1700 UNVr PO 12/16 1701 Warfarin Sodium 10 MG COUMADIN 1700 ONE 12/15 1700 DC 12/15 PO 12/15 1701 1706 Last 24 Hrs of Lab/Chacorta Results Last 24 Hrs of Labs/Mics: Laboratory Tests 12/16/17 0737: Anion Gap 7, Estimated GFR 50 L, BUN/Creatinine Ratio 22.1, PT 11.8, INR 1.08, CBC w Diff NO MAN DIFF REQ, RBC 3.53 L, MCV 88.3, MCH 28.7, MCHC 32.5 L, RDW 15.6 H, MPV 8.5, Gran % 51.9, Lymphocytes % 19.9 L, Monocytes % 10.9 H, Eosinophils % 16.8 H, Basophils % 0.5, Absolute Granulocytes 3.8, Absolute Lymphocytes 1.5, Absolute Monocytes 0.8 H, Absolute Eosinophils 1.2, Absolute Basophils 0 Assessment/Plan Assessment: Mr Welch is a 72 YO M w/PMH significant for COPD on 2 L oxygen at baseline, recent septic joint with MSSA currently on 2 antibiotics (Keflex and rifampin), Paroxysamal A. fib, used to be on Eliquis recently switched to warfarin, CHF, diabetes not on any medication, steroid dependent, psoriasis, gout, CK D who presents to the hospital with worsening dyspnea and difficulty breathing. Chest x-ray negative for pneumonia, no leukocytosis. The patient has received IV methylprednisolone 1251, IV ceftriaxone 1 g 1, IV azithromycin 500 mg 1 and TRC/nebulizers in the ED. Problem list: #AECOPD #Diabetes #Paroxysmal Atrial fibrillation on Warfarin with subtherapeutic INR #Septic joint with MSSA on 2 antibiotics #CHF, CKD Plan: -Continuie Magement on Gen Med steroids FS, 105,128 -Obtained a formal Pulmonology consultation this am. Will begin patient on Spiriva. closely. -Have also obtained a formal cardiology consultation. PPI, digoxin, Keflex and Rifampin Problem List: 1. COPD exacerbation 2. Subtherapeutic anticoagulation Pain Ratin Pain Location: No Pain Pain Goal: Remain pain free Pain Plan: Tylenol PRN Tomorrow's Labs & Rationales: INR: Monitor Coumadin Dosing
[2017-12-16 08:20] LABS: PT 11.8 SEC (9.4-12.5)
[2017-12-16 08:45] LABS: ABSOLUTE BASOPHIL COUNT 0 /CUMM (0.0-0.2); ABSOLUTE EOSINOPHIL COUNT 1.2 /CUMM (0.0-0.7); ABSOLUTE GRANULOCYTE CT 3.8 /CUMM (1.4-6.5); ABSOLUTE LYMPH COUNT 1.5 /CUMM (1.2-3.4); ABSOLUTE MONOCYTE COUNT 0.8 /CUMM (0.10-0.60); BASOPHIL % 0.5 % (0.0-2.0); EOSINOPHIL % 16.8 % (0-5); GRANULOCYTE % 51.9 % (42.2-75.2); HEMATOCRIT 31.2 % (42-52); MEAN CORPUSCULAR HGB 28.7 PG (27.0-31.0); MEAN CORPUSCULAR HGB CONC 32.5 G/DL (33.0-37.0); MEAN CORPUSCULAR VOLUME 88.3 FL (80.0-94.0); MEAN PLATELET VOLUME 8.5 FL (7.4-10.4); PLATELET COUNT 226 /CUMM (130-400); RBC DISTRIBUTION WIDTH 15.6 % (11.5-14.5); RED BLOOD CELL CT 3.53 /CUMM (4.70-6.10)
--- NOTE | 2017-12-16 09:02 | Cons- Pulmonary ---
General Information and HPI Consulting Request Date of Consult: 12/16/17 Requested By: Dr. Lopez Reason for Consult: Exacerbation COPD History of Present Illness: Patient is 72-year-old with severe oxygen-dependent chronic hypoxic respiratory failure is severe COPD admitted with increasing shortness of breath secondary to exacerbation of COPD. He has remained short of breath. With minimal exertion. Note BMP is 2300 Allergies/Medications Allergies: Coded Allergies: NO KNOWN ALLERGIES (08/21/15) Home Med List: Albuterol Sulfate (Proair Hfa) 90 MCG HFA.AER.AD 2 PUF INH Q4-6 PRN PRN Shortness of breath (Reported) Albuterol Sulfate 2.5 MG/3 ML (0.083 %) VIAL.NEB 1 Vial INH/KIMANI Q4P PRN Shortness of breath (Reported) Amiodarone (Cordarone) 200 MG TABLET 1 TAB PO DAILY HEART (Reported) Atorvastatin Calcium 40 MG TABLET 1 TAB PO DAILY cholesterol (Reported) Cephalexin (Keflex) 500 MG CAPSULE 1 CAP PO TID prosthetic joint infection ( Reported) Cholecalciferol (Vitamin D3) (Vitamin D) 1,000 UNIT TABLET 1 TAB PO DAILY OSTEOPOROSIS Clobetasol Propionate 0.05 % SOLUTION 1 JO TOP ONCE A WEEK SCALP (Reported) Clobetasol Propionate 0.05 % CREAM..G. 1 JO TOP AD SKIN (Reported) apply to affected area(s) Digoxin 125 MCG TABLET 1 TAB PO DAILY HEART (Reported) Fluticasone/Salmeterol (Advair 250-50 Diskus) 250 MCG-50 MCG/DOSE BLST.W.DEV 1 PUF INH BID Shotness of breath (Reported) Hydrocortisone 2.5 % CREAM..G. 1 JO TOP AD PRN SKIN (Reported) apply to affected area(s) Hydroxyzine Hydrochloride (Atarax) 25 MG TAB 1 TAB PO BID PRN Rash . Lisinopril 10 MG TABLET 1 TAB PO DAILY HIGH BLOOD PRESSURE (Reported) Metoprolol Succ XL (Toprol XL) 25 MG TAB 1 TAB PO DAILY heart health ( Reported) Nystatin (Nyamyc) 100,000 UNIT/GRAM POWDER 1 JO TOP PRN GROIN (Reported) Pantoprazole Sodium (Protonix) 20 MG TABLET.DR 2 TAB PO DAILY ACID REFLUX ( Reported) Prednisone 10 MG TABLET 1 TAB PO DAILY COPD (Reported) Prednisone 10 MG TABLET 1 TAB PO DAILY COPD On 10/31 and 11/01 4 tab 0n 11/02 and 11/03 3 tab On 11/04 and 11/05 2 tab On 11/06 to 11/09 1 tab Prednisone 10 MG TABLET 0 PO SEE ADMIN CRITERIA COPD on 12/17-12/18 take 3 on 12/19-12/20 take 2 on 12/21-12/22 take 1 Rifampin (Rifadin) 300 MG CAPSULE 1 CAP PO BID Septic arthritis Please follow up infectious disease Dr. Lui for further antibiotic course. His contact # [phone] Spironolactone (Aldactone) 25 MG TABLET 1 TAB PO DAILY CHF (Reported) Tiotropium [place] (Spiriva) 18 MCG CAP.W.DEV 1 CAP INH DAILY Shortness of breath (Reported) Triamcinolone Acetonide 0.1 % CREAM..G. 1 JO TOP AD PRN SKIN (Reported) Warfarin Sodium (Coumadin) 7.5 MG TABLET 1 TAB PO DAILY A.FIB (Reported) Review of Systems Review of Systems Constitutional: Denies: chills, fever. Cardiovascular: Denies: chest pain, edema. Respiratory: Reports: cough, short of breath, wheezing. Denies: hemoptysis, sputum production. GI: Denies: abdominal pain, bloating, diarrhea, melena. Past History Travel History Traveled to [place] past 21 day No Medical History Neurological: NONE EENT: cataracts Cardiovascular: AFIB, CHF, hypertension, hyperlipidemia Respiratory: COPD (2L O2& steroid dependent), pneumonia, O2 DEP 2L Gastrointestinal: GERD, pancreatitis Hepatic: hepatic cysts Renal: chronic kidney disease Musculoskeletal: gout Psychiatric: NONE Endocrine: diabetes (insulin-requiring) Blood Disorders: NONE Cancer(s): NONE ORAL AND MAXILLOFACIAL SURGERY RESIDENT/Reproductive: NONE Other Medical Hx: Psoriasis Surgical History Surgical History: appendectomy, cataract removal, knee replacement (bilateral) Family History Relations & Conditions If Any: BROTHER, ; Cause: Brain cancer. Uncle ([place] at age 40). FH: myocardial infarction SISTER FH: lung cancer FATHER Psychosocial History Where Do You Live? Home Who Do You Live With? spouse, 2 daughters, one son, granddaughter and her Services at Home: Oxygen Primary Language: Maldivian Smoking Status: Former Smoker ETOH Use: denies use Illicit Drug Use: denies illicit drug use Functional Ability ADLs Independent: dressing, eating, toileting, bathing. Ambulation: independent IADLs Independent: shopping, housework, finances, food prep, telephone, transportation , medication admin. Exam & Diagnostic Data Last 24 Hrs of Vital Signs/I&O Vital Signs Date Time Temp Pulse Resp B/P B/P Pulse O2 O2 Flow FiO2 Mean Ox Delivery Rate 12/16 0756 93 Nasal 2.0L Cannula 12/16 0620 98.0 72 20 118/56 91 Nasal Cannula 12/16 0000 Nasal 2.0L Cannula 12/15 2208 98.3 64 16 130/60 97 12/15 1630 95 Nasal 2.0L Cannula 12/15 1600 96 Nasal 2.0L Cannula 12/15 1432 98.2 76 24 110/58 94 12/15 0924 71 110/58 12/15 0924 71 110/58 12/15 0924 71 110/58 12/15 0924 71 110/58 Intake & Output 12/16 1600 12/16 0800 12/16 0000 Intake Total 600 600 Output Total Balance 600 600 Intake, Oral 600 600 Patient 177 lb Weight Oxygen saturation 2 L 93% exam of his chest shows markedly diminished breath sounds there are no wheezes or crackles cardiac exam shows a regular rhythm abdomen is soft nontender Last 48 Hrs of Labs/Chacorta: Laboratory Tests 12/16/17 0737: Anion Gap 7, Estimated GFR 50 L, BUN/Creatinine Ratio 22.1, PT 11.8, INR 1.08, CBC w Diff Pending, WBC Pending, RBC Pending, Hgb Pending, Hct Pending, MCV Pending, MCH Pending, MCHC Pending, RDW Pending, Plt Count Pending, MPV Pending 12/15/17 0720: Anion Gap 6, Estimated GFR 50 L, BUN/Creatinine Ratio 22.9, PT 12.3, INR 1.13, CBC w Diff NO MAN DIFF REQ, RBC 3.55 L, MCV 87.8, MCH 28.6, MCHC 32.6 L, RDW 16.2 H, MPV 8.3, Gran % 62.6, Lymphocytes % 18.8 L, Monocytes % 11.2 H, Eosinophils % 6.8 H, Basophils % 0.6, Absolute Granulocytes 4.3, Absolute Lymphocytes 1.3, Absolute Monocytes 0.8 H, Absolute Eosinophils 0.5, Absolute Basophils 0 Assessment/Plan Impression/Plan: 72-year-old with chronic hypoxic history failure secondary to severe end-stage COPD admitted with exacerbation of COPD. Is oxygen requirements are back to baseline. He remains dyspneic with activities of daily living. Note BMP is 2300 and he has had history of congestive heart failure in the past Recommendations: Repeat cardiac ultrasound. Consider short-term pulmonary rehabilitation. DC Atrovent and substitute Spiriva. Continue current prednisone dosage. Optimize INR Consult Acknowledgment - Thank you for your consult request.
[2017-12-16 10:19] LABS: WHITE BLOOD CELL COUNT 7.4 /CUMM (4.8-10.8)
--- NOTE | 2017-12-16 10:59 | PN- Att Addend ---
Attending Addendum Attending Brief Note Again had a bad night with more shortness of breath. Oxygen on at this time in no respiratory distress but a little short of breath. Vital signs are stable no fever. No new changes on physical . Appreciate Dr. eBllo's input and recommendations. Patient will benefit from pulmonary rehabilitation. Arrangements will be started. Intake & Output 12/16 1600 12/16 0400 12/15 1600 12/15 0400 12/14 1600 12/14 0400 Intake Total 833 325 1386 1370 240 Output Total Balance 282 415 6948 1370 240 Intake, Oral 963 591 1849 1370 240 Number 0 0 Bowel Movements Patient 177 lb 177 lb Weight Current Medications Sig/Luis Start time Last Medication Dose Route Stop Time Status Admin Albuterol Sulfate 3 ML EVERY 4 HRS/AWAKE 12/11 1200 AC 12/16 INH 0732 Albuterol Sulfate 2 PUF Q4-6 PRN PRN 12/11 09 AC 12/16 INH 0409 Amiodarone HCl 200 MG DAILY 12/11 09 AC 12/16 PO 0909 Atorvastatin Calcium 40 MG 1700 12/11 1700 AC 12/15 PO 1706 Budesonide/ 2 PUF BID 12/15 1300 AC 12/16 Formoterol Fumarate INH 0910 Cephalexin 500 MG TID 12/11 1400 AC 12/16 PO 0909 Digoxin 0.125 MG DAILY 12/11 1429 AC 12/16 PO 0910 Guaifenesin 600 MG Q12 12/14 2100 AC 12/16 PO 0909 Insulin Aspart 0 TIDAC 12/11 1200 AC 12/15 SC 1706 Ipratropium [place] 2.5 ML EVERY 4 HRS/AWAKE 12/11 1200 AC 12/16 INH 0733 Lisinopril 10 MG DAILY 12/11 0900 AC 12/16 PO 0909 Metoprolol Succinate 25 MG DAILY 12/11 0900 AC 12/16 PO 0909 Prednisone 40 MG DAILY 12/15 0900 AC 12/16 PO 0909 Rifampin 300 MG BID 12/11 0928 AC 12/16 PO 0909 Sodium Chloride 2 SPRAY Q4P PRN 12/12 0300 AC 12/16 MEGHANN 0702 Spironolactone 25 MG DAILY 12/11 0901 AC 12/16 PO 0909 Warfarin Sodium 10 MG COUMADIN 1700 ONE 12/15 1700 DC 12/15 PO 12/15 1701 1706 Laboratory Tests 12/16/17 0737: Anion Gap 7, Estimated GFR 50 L, BUN/Creatinine Ratio 22.1, PT 11.8, INR 1.08, CBC w Diff NO MAN DIFF REQ, RBC 3.53 L, MCV 88.3, MCH 28.7, MCHC 32.5 L, RDW 15.6 H, MPV 8.5, Gran % 51.9, Lymphocytes % 19.9 L, Monocytes % 10.9 H, Eosinophils % 16.8 H, Basophils % 0.5, Absolute Granulocytes 3.8, Absolute Lymphocytes 1.5, Absolute Monocytes 0.8 H, Absolute Eosinophils 1.2, Absolute Basophils 0 12/15/17 0720: Anion Gap 6, Estimated GFR 50 L, BUN/Creatinine Ratio 22.9, PT 12.3, INR 1.13, CBC w Diff NO MAN DIFF REQ, RBC 3.55 L, MCV 87.8, MCH 28.6, MCHC 32.6 L, RDW 16.2 H, MPV 8.3, Gran % 62.6, Lymphocytes % 18.8 L, Monocytes % 11.2 H, Eosinophils % 6.8 H, Basophils % 0.6, Absolute Granulocytes 4.3, Absolute Lymphocytes 1.3, Absolute Monocytes 0.8 H, Absolute Eosinophils 0.5, Absolute Basophils 0 12/14/17 0756: Anion Gap 9, Estimated GFR 46 L, BUN/Creatinine Ratio 20.7, PT 11.5, INR 1.05 Vital Signs Date Time Temp Pulse Resp B/P B/P Pulse O2 O2 Flow FiO2 Mean Ox Delivery Rate 12/16 0910 110/60 12/16 0909 72 110/60 12/16 0909 110/60 12/16 0909 11012/16 0756 93 Nasal 2.0L Cannula 12/16 0620 98.0 72 20 118/56 91 Nasal Cannula 12/16 0000 Nasal 2.0L Cannula 12/15 2208 98.3 64 16 130/60 97 12/15 1630 95 Nasal 2.0L Cannula 12/15 1600 96 Nasal 2.0L Cannula 12/15 1432 98.2 76 24 110/58 94 White count is within normal limits INR is still subtherapeutic,. Will check with cardiology what other options we have for anticoagulation so my need another echocardiogram. Pulmonary's recommendations.
--- NOTE | 2017-12-16 12:00 | Cons- Cardiology ---
General Information and HPI Consulting Request Date of Consult: 12/16/17 Requested By: Red Lopez MD Reason for Consult: atrial fibrillation History of Present Illness: the patient is a 72-year-old male with history of atrial fibrillation, chronic systolic heart failure, severe COPD, and chronic kidney disease. He was previously anticoagulated on Eliquis for atrial fibrillation, however he is currently being treated with Keflex and right hand been for septic joint. Eliquis was changed to warfarin because of the interaction between Eliquis and rifampin. INR has not yet been therapeutic since changing to warfarin. He complains of significant shortness of breath secondary to his COPD. No chest pain. No palpitations. No diaphoresis Allergies/Medications Allergies: Coded Allergies: NO KNOWN ALLERGIES (08/21/15) Home Med List: Albuterol Sulfate (Proair Hfa) 90 MCG HFA.AER.AD 2 PUF INH Q4-6 PRN PRN Shortness of breath (Reported) Albuterol Sulfate 2.5 MG/3 ML (0.083 %) VIAL.NEB 1 Vial INH/KIMANI Q4P PRN Shortness of breath (Reported) Amiodarone (Cordarone) 200 MG TABLET 1 TAB PO DAILY HEART (Reported) Atorvastatin Calcium 40 MG TABLET 1 TAB PO DAILY cholesterol (Reported) Cephalexin (Keflex) 500 MG CAPSULE 1 CAP PO TID prosthetic joint infection ( Reported) Cholecalciferol (Vitamin D3) (Vitamin D) 1,000 UNIT TABLET 1 TAB PO DAILY OSTEOPOROSIS Clobetasol Propionate 0.05 % SOLUTION 1 JO TOP ONCE A WEEK SCALP (Reported) Clobetasol Propionate 0.05 % CREAM..G. 1 JO TOP AD SKIN (Reported) apply to affected area(s) Digoxin 125 MCG TABLET 1 TAB PO DAILY HEART (Reported) Fluticasone/Salmeterol (Advair 250-50 Diskus) 250 MCG-50 MCG/DOSE BLST.W.DEV 1 PUF INH BID Shotness of breath (Reported) Hydrocortisone 2.5 % CREAM..G. 1 JO TOP AD PRN SKIN (Reported) apply to affected area(s) Hydroxyzine Hydrochloride (Atarax) 25 MG TAB 1 TAB PO BID PRN Rash . Lisinopril 10 MG TABLET 1 TAB PO DAILY HIGH BLOOD PRESSURE (Reported) Metoprolol Succ XL (Toprol XL) 25 MG TAB 1 TAB PO DAILY heart health ( Reported) Nystatin (Nyamyc) 100,000 UNIT/GRAM POWDER 1 JO TOP PRN GROIN (Reported) Pantoprazole Sodium (Protonix) 20 MG TABLET.DR 2 TAB PO DAILY ACID REFLUX ( Reported) Prednisone 10 MG TABLET 1 TAB PO DAILY COPD (Reported) Prednisone 10 MG TABLET 1 TAB PO DAILY COPD On 10/31 and 11/01 4 tab 0n 11/02 and 11/03 3 tab On 11/04 and 11/05 2 tab On 11/06 to 11/09 1 tab Prednisone 10 MG TABLET 0 PO SEE ADMIN CRITERIA COPD on 12/18-12/19 take 3 on 12/20-12/21 take 2 on 12/22-12/23 take 1 Rifampin (Rifadin) 300 MG CAPSULE 1 CAP PO BID Septic arthritis Please follow up infectious disease Dr. Lui for further antibiotic course. His contact # [phone] Spironolactone (Aldactone) 25 MG TABLET 1 TAB PO DAILY CHF (Reported) Tiotropium [place] (Spiriva) 18 MCG CAP.W.DEV 1 CAP INH DAILY Shortness of breath (Reported) Triamcinolone Acetonide 0.1 % CREAM..G. 1 JO TOP AD PRN SKIN (Reported) Warfarin Sodium (Coumadin) 7.5 MG TABLET 1 TAB PO DAILY A.FIB (Reported) Past History Travel History Traveled to [place] past 21 day No Medical History Neurological: NONE EENT: cataracts Cardiovascular: AFIB, CHF, hypertension, hyperlipidemia Respiratory: COPD (2L O2& steroid dependent), pneumonia, O2 DEP 2L Gastrointestinal: GERD, pancreatitis Hepatic: hepatic cysts Renal: chronic kidney disease Musculoskeletal: gout Psychiatric: NONE Endocrine: diabetes (insulin-requiring) Blood Disorders: NONE Cancer(s): NONE EARLY [employer] PSYCHOLOGIST/Reproductive: NONE Other Medical Hx: Psoriasis Surgical History Surgical History: appendectomy, cataract removal, knee replacement (bilateral) Family History Relations & Conditions If Any: BROTHER, ; Cause: Brain cancer. Uncle ([place] at age 40). FH: myocardial infarction SISTER FH: lung cancer FATHER Psychosocial History Where Do You Live? Home Who Do You Live With? spouse, 2 daughters, one son, granddaughter and her Services at Home: Oxygen Primary Language: Amharic Smoking Status: Former Smoker ETOH Use: denies use Illicit Drug Use: denies illicit drug use Functional Ability ADLs Independent: dressing, eating, toileting, bathing. Ambulation: independent IADLs Independent: shopping, housework, finances, food prep, telephone, transportation , medication admin. ECHO Results (as available) Report: CONCLUSIONS Mild left ventricular dilatation. Moderately reduced left ventricular systolic function. Left ventricular ejection fraction is estimated at 35-40 %. Global hypokinesis. Trace mitral regurgitation. Trace tricuspid regurgitation. Trace pulmonic regurgitation. Exam & Diagnostic Data Vital Signs and I&O Vital Signs Date Time Temp Pulse Resp B/P B/P Pulse O2 O2 Flow FiO2 Mean Ox Delivery Rate 12/16 1630 95 Nasal 2.0L Cannula 12/16 1544 Nasal 2.0L Cannula 12/16 1438 98.0 75 22 110/70 94 Nasal 3.0L Cannula 12/16 0910 110/60 12/16 0909 72 110/60 12/16 0909 110/60 12/16 0909 110/12/16 0800 93 Nasal 2.0L Cannula 12/16 0756 93 Nasal 2.0L Cannula 12/16 0620 98.0 72 20 118/56 91 Nasal Cannula 12/16 0000 Nasal 2.0L Cannula 12/15 2208 98.3 64 16 130/60 97 Intake & Output 12/16 1600 12/16 0800 12/16 0000 12/15 1600 12/15 0800 12/15 0000 Intake Total 480 535 060 6538 Output Total Balance 480 229 280 4310 Intake, Oral 480 887 531 5254 Number 0 Bowel Movements Patient 177 lb 177 lb Weight Labs/Chacorta Results: Laboratory Tests 12/16 12/15 0737 0720 Chemistry Sodium (137 - 145 mmol/L) 139 138 Potassium (3.5 - 5.1 mmol/L) 4.6 4.4 Chloride (98 - 107 mmol/L) 98 98 Carbon Dioxide (22 - 30 mmol/L) 33 H 33 H Anion Gap (5 - 16) 7 6 BUN (9 - 20 mg/dL) 31 H 32 H Creatinine (0.7 - 1.2 mg/dL) 1.4 H 1.4 H Estimated GFR (>60 ml/min) 50 L 50 L BUN/Creatinine Ratio (7 - 25 %) 22.1 22.9 Coagulation PT (9.4 - 12.5 SEC) 11.8 12.3 INR (0.90 - 1.17) 1.08 1.13 Hematology CBC w Diff NO MAN DIFF REQ NO MAN DIFF REQ WBC (4.8 - 10.8 /CUMM) 7.4 6.8 RBC (4.70 - 6.10 /CUMM) 3.53 L 3.55 L Hgb (14.0 - 18.0 G/DL) 10.1 L 10.1 L Hct (42 - 52 %) 31.2 L 31.2 L MCV (80.0 - 94.0 FL) 88.3 87.8 MCH (27.0 - 31.0 PG) 28.7 28.6 MCHC (33.0 - 37.0 G/DL) 32.5 L 32.6 L RDW (11.5 - 14.5 %) 15.6 H 16.2 H Plt Count (130 - 400 /CUMM) 226 221 MPV (7.4 - 10.4 FL) 8.5 8.3 Gran % (42.2 - 75.2 %) 51.9 62.6 Lymphocytes % (20.5 - 51.1 %) 19.9 L 18.8 L Monocytes % (1.7 - 9.3 %) 10.9 H 11.2 H Eosinophils % (0 - 5 %) 16.8 H 6.8 H Basophils % (0.0 - 2.0 %) 0.5 0.6 Absolute Granulocytes (1.4 - 6.5 /CUMM) 3.8 4.3 Absolute Lymphocytes (1.2 - 3.4 /CUMM) 1.5 1.3 Absolute Monocytes (0.10 - 0.60 /CUMM) 0.8 H 0.8 H Absolute Eosinophils (0.0 - 0.7 /CUMM) 1.2 0.5 Absolute Basophils (0.0 - 0.2 /CUMM) 0 0 Assessment/Plan Assessment/Plan Assessment: 1. Paroxysmal atrial fibrillation, currently in sinus rate. subtherapeutic INR on warfarin 2. Chronic systolic heart failure with recovery of LV ejection fraction. no evidence of acute CHF exacerbation at this time 3. Paroxysmal atrial fibrillation, currently in sinus rhythm 4. Acute COPD exacerbation Plan: - Warfarin 10 milligrams p.o. today - Check INR in the morning - Continue usual cardiac medications Consult Acknowledgment - Thank you for your consult request.
[2017-12-16 14:38] VITALS: BP 110/70
[2017-12-16] MEDS ORDERED: PREDNISONE10 M2 PO (15:34)
[2017-12-16 22:38] VITALS: BP 120/60
[2017-12-17 05:55] VITALS: BP 100/58
--- NOTE | 2017-12-17 07:23 | PN- Housestaff ---
Subjective Follow-up For: AECOPD Subjective: Mr. Welch was seen and examined this morning. He is Resting comfortably on the chair beside his bed. Says that he was able to have a better night. Was able to get some rest. Denies any fever, chills, nausea, vomiting. SOB appears improved. Review of Systems Constitutional: Reports: see HPI. Objective Last 24 Hrs of Vital Signs/I&O Vital Signs Date Time Temp Pulse Resp B/P B/P Pulse O2 O2 Flow FiO2 Mean Ox Delivery Rate 12/17 1436 97.3 95 20 110/60 95 12/17 1234 Nasal 2.0L Cannula 12/17 1216 Nasal 2.0L Cannula 12/17 0927 68 130/56 12/17 0927 68 130/56 12/17 0927 68 130/56 12/17 0927 68 130/56 12/17 0834 95 Nasal 2.0L Cannula 12/17 0555 98.0 62 20 100/58 94 Nasal 2.0L Cannula 12/17 0000 Nasal 2.0L Cannula 12/16 2238 98.1 78 20 120/60 95 12/16 1630 95 Nasal 2.0L Cannula 12/16 1544 Nasal 2.0L Cannula Intake & Output 12/17 1600 12/17 0800 12/17 0000 Intake Total 400 800 Output Total Balance 400 800 Intake, Oral 400 800 Physical Exam General Appearance: Alert, Oriented X3, Cooperative HEENT: Atraumatic, PERRLA, Mucous Membr. moist/pink Neck: Supple Cardiovascular: Regular Rate, Normal S1, Normal S2 Lungs: Clear to Auscultation Abdomen: Normal Bowel Sounds, Soft, No Tenderness Neurological: Normal Speech, Strength at 5/5 X4 Ext Extremities: No Edema Vascular: Normal Pulses, expiratory wheezing noted Current Medications: Current Medications Sig/Luis Start time Last Medication Dose Route Stop Time Status Admin Albuterol Sulfate 3 ML EVERY 4 HRS/AWAKE 12/11 1200 AC 12/17 INH 1256 Albuterol Sulfate 2 PUF Q4-6 PRN PRN 12/11 09 AC 12/16 INH 0409 Amiodarone HCl 200 MG DAILY 12/11 09 AC 12/17 PO 0927 Atorvastatin Calcium 40 MG 1700 12/11 1700 AC 12/16 PO 1722 Budesonide/ 2 PUF BID 12/15 1300 AC 12/17 Formoterol Fumarate INH 0928 Cephalexin 500 MG TID 12/11 1400 AC 12/17 PO 1439 Digoxin 0.125 MG DAILY 12/11 1429 AC 12/17 PO 0927 Guaifenesin 600 MG Q12 12/14 2100 AC 12/17 PO 0927 Insulin Aspart 0 TIDAC 12/11 1200 AC 12/16 SC 1722 Lisinopril 10 MG DAILY 12/11 0900 AC 12/17 PO 09 Metoprolol Succinate 25 MG DAILY 12/11 0900 AC 12/17 PO 0927 Prednisone 40 MG DAILY 12/15 0900 AC 12/17 PO 09 Rifampin 300 MG BID 12/11 0928 AC 12/17 PO 09 Sodium Chloride 2 SPRAY Q4P PRN 12/12 0300 AC 12/16 MEGHANN 0702 Spironolactone 25 MG DAILY 12/11 0901 AC 12/17 PO 09 Tiotropium [place] 1 PUF DAILY 12/16 1145 AC 12/17 INH 0928 Warfarin Sodium 10 MG COUMADIN 1700 ONE 12/17 1700 AC PO 12/17 1701 Warfarin Sodium 10 MG COUMADIN 1700 ONE 12/16 1700 DC 12/16 PO 12/16 1701 1911 Last 24 Hrs of Lab/Chacorta Results Last 24 Hrs of Labs/Mics: Laboratory Tests 12/17/17 0755: PT 12.5, INR 1.15 Assessment/Plan Assessment: Mr Welch is a 72 YO M w/PMH significant for COPD on 2 L oxygen at baseline, recent septic joint with MSSA currently on 2 antibiotics (Keflex and rifampin), Paroxysamal A. fib, used to be on Eliquis recently switched to warfarin, CHF, diabetes not on any medication, steroid dependent, psoriasis, gout, CK D who presents to the hospital with worsening dyspnea and difficulty breathing. Chest x-ray negative for pneumonia, no leukocytosis. The patient received IV methylprednisolone 1251, IV ceftriaxone 1 g 1, IV azithromycin 500 mg 1 and TRC/nebulizers in the ED. Problem list: #AECOPD #Diabetes #Paroxysmal Atrial fibrillation on Warfarin with subtherapeutic INR #Septic joint with MSSA on 2 antibiotics #CHF, #CKD Stage 3 Plan: -Continuie Magement on Gen Med steroids FS,108,101 Continue Prednisone at the same dose. May consider taper from 12/18. Reduce by 10 mg Q 3 days. -Obtained a formal Pulmonology consultation this am. Will continue patient on Spiriva. unless higher dose reccomended by cardiolgy, monitor INR closely. PPI, digoxin, Keflex and Rifampin Problem List: 1. COPD exacerbation Pain Ratin Pain Location: No Pain Pain Goal: Remain pain free Pain Plan: Tylenol Prn Tomorrow's Labs & Rationales: INR: For Coumadin Dosing.
[2017-12-17 08:48] LABS: PT 12.5 SEC (9.4-12.5)
--- NOTE | 2017-12-17 09:01 | PN- Pulmonary ---
Subjective HPI/Critical Care Issues: Patient feels shortness of breath is somewhat improved Objective Current Medications: Current Medications Sig/Luis Start time Last Medication Dose Route Stop Time Status Admin Albuterol Sulfate 3 ML EVERY 4 HRS/AWAKE 12/11 1200 AC 12/17 INH 0833 Albuterol Sulfate 2 PUF Q4-6 PRN PRN 12/11 0900 AC 12/16 INH 0409 Amiodarone HCl 200 MG DAILY 12/11 0900 AC 12/16 PO 0909 Atorvastatin Calcium 40 MG 1700 12/11 1700 AC 12/16 PO 1722 Budesonide/ 2 PUF BID 12/15 1300 AC 12/16 Formoterol Fumarate INH 2028 Cephalexin 500 MG TID 12/11 1400 AC 12/16 PO 2028 Digoxin 0.125 MG DAILY 12/11 1429 AC 12/16 PO 0910 Guaifenesin 600 MG Q12 12/14 2100 AC 12/16 PO 2028 Insulin Aspart 0 TIDAC 12/11 1200 AC 12/16 SC 1722 Ipratropium [place] 2.5 ML EVERY 4 HRS/AWAKE 12/11 1200 DC 12/16 INH 0733 Lisinopril 10 MG DAILY 12/11 0900 AC 12/16 PO 0909 Metoprolol Succinate 25 MG DAILY 12/11 0900 AC 12/16 PO 0909 Patient Medication 1 ED ONE ONE 12/16 1415 DC 12/16 Teaching ED 12/16 1416 1726 Prednisone 40 MG DAILY 12/15 0900 AC 12/16 PO 0909 Rifampin 300 MG BID 12/11 0928 AC 12/16 PO 2028 Sodium Chloride 2 SPRAY Q4P PRN 12/12 0300 AC 12/16 MEGHANN 0702 Spironolactone 25 MG DAILY 12/11 0901 AC 12/16 PO 0909 Tiotropium [place] 1 PUF DAILY 12/16 1145 AC 12/16 INH 1314 Warfarin Sodium 10 MG COUMADIN 1700 ONE 12/16 1700 DC 12/16 PO 12/16 1701 1911 Oxygen saturation 2 L 95% exam for chest shows diminished breath sounds are no wheezes or crackles cardiac exam shows regular rhythm Vital Signs & I&O Last 24 Hrs of Vitals and I&O: Vital Signs Date Time Temp Pulse Resp B/P B/P Pulse O2 O2 Flow FiO2 Mean Ox Delivery Rate 12/17 0834 95 Nasal 2.0L Cannula 12/17 0555 98.0 62 20 100/58 94 Nasal 2.0L Cannula 12/17 0000 Nasal 2.0L Cannula 12/16 2238 98.1 78 20 120/60 95 12/16 1630 95 Nasal 2.0L Cannula 12/16 1544 Nasal 2.0L Cannula 12/16 1438 98.0 75 22 110/70 94 Nasal 3.0L Cannula 12/16 0910 110/60 12/16 0909 72 110/60 12/16 0909 110/60 12/16 0909 11060 Intake & Output 12/17 1600 12/17 0800 12/17 0000 Intake Total 400 800 Output Total Balance 400 800 Intake, Oral 400 800 Impression/Plan Impression/Plan Impression/Plan: 72-year-old with severe COPD admitted with exacerbation slowly improving. He continues to have shortness breath or activities of daily living and would benefit from short-term rehabilitation Recommendations: Repeat cardiac ultrasound. Consider short-term pulmonary rehabilitation. DC Atrovent and substitute Spiriva. Continue current prednisone dosage. Optimize INR Taper FiO2 with improved saturations. Await evaluation for short-term pulmonary rehabilitation
--- NOTE | 2017-12-17 09:15 | PN- Att Addend ---
Attending Addendum Attending Brief Note Had a better night, in no respiratory distress this morning oxygen on. Vital signs are stable no fever no major changes on physical INR this morning 1.15, which check with cardiology regarding the appropriate Coumadin orders. Also start disposition plans for pulmonary rehabilitation. Appreciate pulmonary's input and recommendations. Will start very slowly to taper down the steroids when bed available from rehabilitation patient will be transferred Intake & Output 12/17 1600 12/17 0400 12/16 1600 12/16 0400 12/15 1600 12/15 0400 Intake Total 726 632 4529 600 1040 Output Total Balance 279 755 2791 600 1040 Intake, Oral 582 912 3195 600 1040 Number 0 Bowel Movements Patient 177 lb 177 lb Weight Current Medications Sig/Luis Start time Last Medication Dose Route Stop Time Status Admin Albuterol Sulfate 3 ML EVERY 4 HRS/AWAKE 12/11 1200 AC 12/17 INH 0833 Albuterol Sulfate 2 PUF Q4-6 PRN PRN 12/11 09 AC 12/16 INH 0409 Amiodarone HCl 200 MG DAILY 12/11 0900 AC 12/16 PO 0909 Atorvastatin Calcium 40 MG 1700 12/11 1700 AC 12/16 PO 1722 Budesonide/ 2 PUF BID 12/15 1300 AC 12/16 Formoterol Fumarate INH 2028 Cephalexin 500 MG TID 12/11 1400 AC 12/16 PO 2028 Digoxin 0.125 MG DAILY 12/11 1429 AC 12/16 PO 0910 Guaifenesin 600 MG Q12 12/14 2100 AC 12/16 PO 2028 Insulin Aspart 0 TIDAC 12/11 1200 AC 12/16 SC 1722 Ipratropium [place] 2.5 ML EVERY 4 HRS/AWAKE 12/11 1200 DC 12/16 INH 0733 Lisinopril 10 MG DAILY 12/11 0900 AC 12/16 PO 0909 Metoprolol Succinate 25 MG DAILY 12/11 0900 AC 12/16 PO 0909 Patient Medication 1 ED ONE ONE 12/16 1415 DC 12/16 Teaching ED 12/16 1416 1726 Prednisone 40 MG DAILY 12/15 0900 AC 12/16 PO 0909 Rifampin 300 MG BID 12/11 0928 AC 12/16 PO 2028 Sodium Chloride 2 SPRAY Q4P PRN 12/12 0300 AC 12/16 MEGHANN 0702 Spironolactone 25 MG DAILY 12/11 0901 AC 12/16 PO 0909 Tiotropium [place] 1 PUF DAILY 12/16 1145 AC 12/16 INH 1314 Warfarin Sodium 10 MG COUMADIN 1700 ONE 12/16 1700 DC 12/16 PO 12/16 1701 1911 Laboratory Tests 12/17/17 0755: PT 12.5, INR 1.15 12/16/17 0737: Anion Gap 7, Estimated GFR 50 L, BUN/Creatinine Ratio 22.1, PT 11.8, INR 1.08, CBC w Diff NO MAN DIFF REQ, RBC 3.53 L, MCV 88.3, MCH 28.7, MCHC 32.5 L, RDW 15.6 H, MPV 8.5, Gran % 51.9, Lymphocytes % 19.9 L, Monocytes % 10.9 H, Eosinophils % 16.8 H, Basophils % 0.5, Absolute Granulocytes 3.8, Absolute Lymphocytes 1.5, Absolute Monocytes 0.8 H, Absolute Eosinophils 1.2, Absolute Basophils 0 12/15/17 0720: Anion Gap 6, Estimated GFR 50 L, BUN/Creatinine Ratio 22.9, PT 12.3, INR 1.13, CBC w Diff NO MAN DIFF REQ, RBC 3.55 L, MCV 87.8, MCH 28.6, MCHC 32.6 L, RDW 16.2 H, MPV 8.3, Gran % 62.6, Lymphocytes % 18.8 L, Monocytes % 11.2 H, Eosinophils % 6.8 H, Basophils % 0.6, Absolute Granulocytes 4.3, Absolute Lymphocytes 1.3, Absolute Monocytes 0.8 H, Absolute Eosinophils 0.5, Absolute Basophils 0 Vital Signs Date Time Temp Pulse Resp B/P B/P Pulse O2 O2 Flow FiO2 Mean Ox Delivery Rate 12/17 0834 95 Nasal 2.0L Cannula 12/17 0555 98.0 62 20 100/58 94 Nasal 2.0L Cannula 12/17 0000 Nasal 2.0L Cannula 12/16 2238 98.1 78 20 120/60 95 12/16 1630 95 Nasal 2.0L Cannula 12/16 1544 Nasal 2.0L Cannula 12/16 1438 98.0 75 22 110/70 94 Nasal 3.0L Cannula
[2017-12-17 14:36] VITALS: BP 110/60
[2017-12-17] MEDS ORDERED: PREDNISONE10 M2 PO (15:09)
--- NOTE | 2017-12-17 19:45 | ECHOCARDIOGRAM REPORT ---
TESSA YANEZ Age: 72 : 1945 Gender: M Exam Date: 12/16/2017 19:53 Exam Location: [place] Ht (in): 74 Wt (lb): 176 BSA: 2.04 BP: 110 / 70 Ordering Physician: Leeanna Cabrera MD Referring Physician: Aydin Bashir MD Technologist: Heather Florez [facility] Room Number: 238 Indications: HEART FAILURE Rhythm: Sinus Technical Quality: Good FINDINGS Left Ventricle Mild left ventricular dilatation. Normal left ventricular wall thickness. Normal left ventricular ejection fraction visually estimated at >55 %. No obvious regional wall motion abnormalities. Right Ventricle Normal right ventricular size and function. Right Atrium Normal right atrial size. Left Atrium Normal left atrial size. Mitral Valve Mild mitral annular calcification. Mild mitral prolapse. Mild mitral regurgitation. Aortic Valve Diffuse thickening (sclerosis) of the aortic valve cusps without reduced excursion. No aortic stenosis. No aortic regurgitation. Tricuspid Valve Tricuspid valve not well visualized, grossly normal. Pulmonic Valve Pulmonic valve not well visualized, grossly normal. Pericardium No pericardial effusion. Great Vessels Normal size aortic root. CONCLUSIONS Mild left ventricular dilatation. Normal left ventricular wall thickness. Normal left ventricular ejection fraction visually estimated at >55 Mild mitral prolapse. Mild mitral regurgitation. No aortic stenosis. No aortic regurgitation. Aydin Bashir M.D. (Electronically Signed) Final Date: 17 Dec 2017 19:44 MEASUREMENTS (Male / Female) Normal Values 2D ECHO LV Diastolic Diameter PLAX 6.0 cm 4.2 - 5.9 / 3.9 - 5.3 cm LV Systolic Diameter PLAX 4.4 cm 2.1 - 4.0 cm LV Fractional Shortening PLAX 26.7 % 25 - 46 % LV Ejection Fraction 2D Teich 51.3 % IVS Diastolic Thickness 1.1 cm LVPW Diastolic Thickness 1.1 cm LV Relative Wall Thickness 0.4 RV Internal Dim ED PLAX 3.4 cm 1.9 - 3.8 cm LVOT Diameter 2.4 cm Aortic Root Diameter 3.4 cm LA Systolic Diameter LX 4.4 cm 3.0 - 4.0 / 2.7 - 3.8 cm LA Volume 57.0 cm 18 - 58 / 22 - 52 cm Ascending Aorta Diameter 3.6 cm DOPPLER AV Peak Velocity 168.0 cm/s AV Peak Gradient 11.3 mmHg AV Mean Velocity 116.0 cm/s AV Mean Gradient 6.0 mmHg AV Velocity Time Integral 35.8 cm LVOT Peak Velocity 133.0 cm/s LVOT Peak Gradient 7.1 mmHg LVOT Mean Velocity 91.6 cm/s LVOT Mean Gradient 4.0 mmHg LVOT Velocity Time Integral 26.8 cm LVOT Stroke Volume 121.2 cm AV Area Cont Eq vti 3.4 cm AV Area Cont Eq pk 3.6 cm MV Peak Velocity 133.0 cm/s MV Peak Gradient 7.1 mmHg MV Mean Velocity 65.7 cm/s MV Mean Gradient 2.0 mmHg Mitral E Point Velocity 94.8 cm/s Mitral A Point Velocity 50.8 cm/s Mitral E to A Ratio 1.9 MV PHT Velocity 138.0 cm/s MV Deceleration [place] 577.0 cm/s MV Pressure Half Time 71.8 ms MV Area PHT 3.1 cm MV Deceleration Time 198.0 ms TR Peak Velocity 314.0 cm/s TR Peak Gradient 39.4 mmHg Right Atrial Pressure 5.0 mmHg Pulmonary Artery Systolic Pressu 44.4 mmHg Right Ventricular Systolic Press 44.4 mmHg PV Peak Velocity 127.0 cm/s PV Peak Gradient 6.5 mmHg PV Mean Velocity 80.6 cm/s PV Mean Gradient 3.0 mmHg PV Velocity Time Integral 25.1 cm LV E' Lateral Velocity 17.0 cm/s Mitral E to LV E' Lateral Ratio 5.6 LV E' Septal Velocity 7.3 cm/s Mitral E to LV E' Septal Ratio 13.0
[2017-12-17 22:09] VITALS: BP 130/60
[2017-12-18 07:05] VITALS: BP 128/70
[2017-12-18 08:22] LABS: PT 12.7 SEC (9.4-12.5)
--- NOTE | 2017-12-18 08:54 | PN- Pulmonary ---
Subjective HPI/Critical Care Issues: Patient feels improved with decrease shortness of breath. He now feels he is improved to the point where he is comfortable returning home Objective Current Medications: Current Medications Sig/Luis Start time Last Medication Dose Route Stop Time Status Admin Albuterol Sulfate 3 ML EVERY 4 HRS/AWAKE 12/11 1200 AC 12/18 INH 0812 Albuterol Sulfate 2 PUF Q4-6 PRN PRN 12/11 09 AC 12/16 INH 0409 Amiodarone HCl 200 MG DAILY 12/11 0900 AC 12/17 PO 0927 Atorvastatin Calcium 40 MG 1700 12/11 1700 AC 12/17 PO 1656 Budesonide/ 2 PUF BID 12/15 1300 AC 12/17 Formoterol Fumarate INH 2003 Cephalexin 500 MG TID 12/11 1400 AC 12/17 PO 2002 Digoxin 0.125 MG DAILY 12/11 1429 AC 12/17 PO 0927 Guaifenesin 600 MG Q12 12/14 2100 AC 12/17 PO 2003 Insulin Aspart 0 TIDAC 12/11 1200 AC 12/17 SC 1656 Lisinopril 10 MG DAILY 12/11 0900 AC 12/17 PO 0927 Metoprolol Succinate 25 MG DAILY 12/11 0900 AC 12/17 PO 0927 Prednisone 40 MG DAILY 12/15 0900 AC 12/17 PO 0927 Rifampin 300 MG BID 12/11 0928 AC 12/17 PO 2002 Sodium Chloride 2 SPRAY Q4P PRN 12/12 0300 AC 12/16 MEGHANN 0702 Spironolactone 25 MG DAILY 12/11 0901 AC 12/17 PO 0926 Tiotropium [place] 1 PUF DAILY 12/16 1145 AC 12/17 INH 0928 Warfarin Sodium 10 MG COUMADIN 1700 ONE 12/17 1700 DC 12/17 PO 12/17 1701 1656 Vital Signs & I&O Last 24 Hrs of Vitals and I&O: Vital Signs Date Time Temp Pulse Resp B/P B/P Pulse O2 O2 Flow FiO2 Mean Ox Delivery Rate 12/18 0821 95 Nasal 2.0L Cannula 12/18 0705 97.8 72 20 128/70 95 Nasal 2.0L Cannula 12/18 0215 96 Nasal 2.0L Cannula 12/18 0000 96 Nasal 2.0L Cannula 12/17 2209 97.8 66 20 130/60 96 12/17 1621 95 Nasal 2.0L Cannula 12/17 1558 Nasal 2.0L Cannula 12/17 1436 97.3 95 20 110/60 95 12/17 1234 Nasal 2.0L Cannula 12/17 1216 Nasal 2.0L Cannula 12/17 0927 68 130/56 12/17 0927 68 130/56 12/17 0927 68 130/56 12/17 0927 68 130/56 Intake & Output 12/18 1600 12/18 0800 12/18 0000 Intake Total 200 800 Output Total Balance 200 800 Intake, Oral 200 800 And saturation 2 L 95% exam of his chest shows decreased breath sounds are no wheezes cardiac exam shows no regular rhythm Impression/Plan Impression/Plan Impression/Plan: 72-year-old with chronic hypoxic history failure now improved exacerbation of COPD Recommendations: Assess oxygen saturations with ambulation. Begin slow prednisone taper. Patient appears to have improved where home discharge appears appropriate.
--- NOTE | 2017-12-18 10:09 | PN- Att Addend ---
Attending Addendum Attending Brief Note Patient much better today. Less short of breath oxygen still on her vital signs are stable no fever. Better air entry. Appreciate Dr. Schneider's input and recommendations, patient originally was going to go to pulmonary rehabilitation seems to be stable enough to go home continue his home oxygen continue his breathing treatments at home slow taper off the steroids follow-up at the COPD clinic follow-up with myself and Dr. Schneider. Also go as an outpatient for a breast ultrasound to evaluate the breast mass on one of his breasts Intake & Output 12/18 1600 12/18 0400 12/17 1600 12/17 0400 12/16 1600 12/16 0400 Intake Total 187 036 5416 800 1080 600 Output Total Balance 011 836 7465 800 1080 600 Intake, Oral 653 719 0198 800 1080 600 Number 1 Bowel Movements Patient 177 lb 177 lb Weight Current Medications Sig/Luis Start time Last Medication Dose Route Stop Time Status Admin Albuterol Sulfate 3 ML EVERY 4 HRS/AWAKE 12/11 1200 AC 12/18 INH 0812 Albuterol Sulfate 2 PUF Q4-6 PRN PRN 12/11 09 AC 12/16 INH 0409 Amiodarone HCl 200 MG DAILY 12/11 0900 AC 12/18 PO 0949 Atorvastatin Calcium 40 MG 1700 12/11 1700 AC 12/17 PO 1656 Budesonide/ 2 PUF BID 12/15 1300 AC 12/18 Formoterol Fumarate INH 0950 Cephalexin 500 MG TID 12/11 1400 AC 12/18 PO 0949 Digoxin 0.125 MG DAILY 12/11 1429 AC 12/18 PO 0949 Guaifenesin 600 MG Q12 12/14 2100 AC 12/18 PO 0949 Insulin Aspart 0 TIDAC 12/11 1200 AC 12/17 SC 1656 Lisinopril 10 MG DAILY 12/11 0900 AC 12/18 PO 0949 Metoprolol Succinate 25 MG DAILY 12/11 0900 AC 12/18 PO 0950 Prednisone 40 MG DAILY 12/15 0900 AC 12/18 PO 0949 Rifampin 300 MG BID 12/11 0928 AC 12/18 PO 0949 Sodium Chloride 2 SPRAY Q4P PRN 12/12 0300 AC 12/16 MEGHANN 0702 Spironolactone 25 MG DAILY 12/11 0901 AC 12/18 PO 0948 Tiotropium [place] 1 PUF DAILY 12/16 1145 AC 12/18 INH 0950 Warfarin Sodium 10 MG COUMADIN 1700 ONE 12/17 1700 DC 12/17 PO 12/17 1701 1656 Laboratory Tests 12/18/17 0710: PT 12.7 H, INR 1.16 12/17/17 0755: PT 12.5, INR 1.15 12/16/17 0737: Anion Gap 7, Estimated GFR 50 L, BUN/Creatinine Ratio 22.1, PT 11.8, INR 1.08, CBC w Diff NO MAN DIFF REQ, RBC 3.53 L, MCV 88.3, MCH 28.7, MCHC 32.5 L, RDW 15.6 H, MPV 8.5, Gran % 51.9, Lymphocytes % 19.9 L, Monocytes % 10.9 H, Eosinophils % 16.8 H, Basophils % 0.5, Absolute Granulocytes 3.8, Absolute Lymphocytes 1.5, Absolute Monocytes 0.8 H, Absolute Eosinophils 1.2, Absolute Basophils 0 Vital Signs Date Time Temp Pulse Resp B/P B/P Pulse O2 O2 Flow FiO2 Mean Ox Delivery Rate 12/18 0950 75 118/54 12/18 0949 75 118/54 12/18 0949 75 118/54 12/18 0949 75 118/54 12/18 0821 95 Nasal 2.0L Cannula 12/18 0705 97.8 72 20 128/70 95 Nasal 2.0L Cannula 12/18 0215 96 Nasal 2.0L Cannula 12/18 0000 96 Nasal 2.0L Cannula 12/17 2209 97.8 66 20 130/60 96 12/17 1621 95 Nasal 2.0L Cannula 12/17 1558 Nasal 2.0L Cannula 12/17 1436 97.3 95 20 110/60 95 12/17 1234 Nasal 2.0L Cannula 12/17 1216 Nasal 2.0L Cannula
[2017-12-18 13:45] VITALS: BP 122/60
--- NOTE | 2017-12-19 13:03 | Discharge Summary ---
Visit Information Visit Dates Admission Date: 12/11/17 Discharge Date: 12/18/17 Hospital Course Course Attending Physician: Red Lopez MD Primary Care Physician: Red Lopez MD Consulting Request: Consulting Specialty: Pulmonary Disease (and cardiology) Consulting Physician: Drs. Schneider and Mckay Reason for Consult: exacerbation of COPD and paroxysmal atrial fibrillation Hospital Course: 72-year-old white male with severe COPD oxygen dependent again admitted with a day or 2 of increased shortness of breath getting so bad that he had to come to the emergency room got emergency treatments and IV steroids with some relief. Needed admission needed IV steroids pulmonary consultation and he was also seen by cardiology because the patient is on Coumadin now might use to be on gutierrez anticoagulation but due to interactions with the rifampin his getting for chronic knee infection was switched to the Coumadin but unable to get to a therapeutic level despite fairly high doses of Coumadin, and the good news is that the patient is in sinus rhythm right now. So the patient would stay on Coumadin to monitor his INR is when he is done with the rifampin probably switch back to gutierrez anticoagulant from the respiratory status he slowly improved, at first was thought that he would benefit from pulmonary rehabilitation but the morning of discharge she was much better and pulmonary decided he could go home slowly taper the steroids and have him follow with the COPD clinic Complications: None. Allergies: Coded Allergies: NO KNOWN ALLERGIES (08/21/15) Significant Procedures: SERVICE DATE: 12/11/17 EXAM TYPE: RAD - XRY-PORTABLE CHEST XRAY EXAMINATION: CHEST 1 VIEW CLINICAL INFORMATION: Shortness of breath, cough. COMPARISON: August 20, 2017. TECHNIQUE: An AP view of the chest is provided. FINDINGS: The cardiac silhouette is stable. The mediastinal and hilar contours are unremarkable. There are neither pleural effusions nor pneumothoraces. There are no consolidations. The osseous structures are stable with moderate rightward curvature to the thoracic spine. There is a stable healed lateral right rib fracture. IMPRESSION: No evidence for acute disease. Stable chest radiograph. SERVICE DATE: 12/16/171143 EXAM TYPE: CARD - ECHOCARDIOGRAM TESSA YANEZ Age: 72 : 1945 Gender: M Exam Date: 12/16/2017 19:53 Exam Location: [address] [place] [address] Ht (in): 74 Wt (lb): 176 BSA: 2.04 BP: 110 / 70 Ordering Physician: Leeanna Cabrera MD Referring Physician: Aydin Bashir MD Technologist: Heather Florez [facility] Room Number: 238 Indications: HEART FAILURE Rhythm: Sinus Technical Quality: Good FINDINGS Left Ventricle Mild left ventricular dilatation. Normal left ventricular wall thickness. Normal left ventricular ejection fraction visually estimated at >55 %. No obvious regional wall motion abnormalities. Right Ventricle Normal right ventricular size and function. Right Atrium Normal right atrial size. Left Atrium Normal left atrial size. Mitral Valve Mild mitral annular calcification. Mild mitral prolapse. Mild mitral regurgitation. Aortic Valve Diffuse thickening (sclerosis) of the aortic valve cusps without reduced excursion. No aortic stenosis. No aortic regurgitation. Tricuspid Valve Tricuspid valve not well visualized, grossly normal. Pulmonic Valve Pulmonic valve not well visualized, grossly normal. Pericardium No pericardial effusion. Great Vessels Normal size aortic root. CONCLUSIONS Mild left ventricular dilatation. Normal left ventricular wall thickness. Normal left ventricular ejection fraction visually estimated at >55 Mild mitral prolapse. Mild mitral regurgitation. No aortic stenosis. No aortic regurgitation. Pertinent Lab Results: 12/11/17 0632: Anion Gap 8, Estimated GFR 54 L, BUN/Creatinine Ratio 18.5, Glucose 106 H, Lactic Acid 0.8, Calcium 9.5, Total Bilirubin 0.3, AST 16 L, ALT 23, Alkaline Phosphatase 53, Troponin I 0.02, Total Protein 6.4, Albumin 3.8, Globulin 2.6, Albumin/Globulin Ratio 1.5, PT 12.5, INR 1.15, APTT 31, CBC w Diff MAN DIFF ORDERED, RBC 3.92 L, MCV 87.3, MCH 28.2, MCHC 32.3 L, RDW 15.4 H, MPV 7.7, Gran % 56.5, Lymphocytes % 10.0 L, Monocytes % 6.5, Eosinophils % 26.6 H, Basophils % 0.4, Absolute Granulocytes 4.6, Segmented Neutrophils 67, Absolute Lymphocytes 0.8 L, Lymphocytes 10 L, Monocytes 2, Absolute Monocytes 0.5, Eosinophils 21 H, Absolute Eosinophils 2.2, Absolute Basophils 0, Platelet Estimate ADEQUATE, Hypochromic-Microcytic 1+, Poikilocytosis 1+, Ovalocytes 1+, Fld Total RBCs Counted 100, Digoxin 0.6 L 12/11/17 0620: pH 7.40, pCO2 46 H, pO2 72 L, HCO3 28, ABG O2 Sat (Measured) 93.0 L, P-50 ( Temp Corrected) N, Carboxyhemoglobin 0.3 L, O2 Concentration % 3L, O2 Delivery Method N/C, Phlebotomy Draw Site RIGHT RADIAL 12/13/17 0800: Anion Gap 7, Estimated GFR 54 L, BUN/Creatinine Ratio 20.8, PT 12.4, INR 1.14, CBC w Diff NO MAN DIFF REQ, RBC 3.64 L, MCV 87.7, MCH 28.3, MCHC 32.3 L, RDW 15.4 H, MPV 8.2, Gran % 73.7, Lymphocytes % 11.7 L, Monocytes % 7.5, Eosinophils % 6.7 H, Basophils % 0.4, Absolute Granulocytes 4.9, Absolute Lymphocytes 0.8 L, Absolute Monocytes 0.5, Absolute Eosinophils 0.4, Absolute Basophils 0 12/12/17 1005: Anion Gap 7, Estimated GFR 50 L, BUN/Creatinine Ratio 16.4, PT 12.3, INR 1.13, CBC w Diff NO MAN DIFF REQ, RBC 3.57 L, MCV 87.9, MCH 28.2, MCHC 32.1 L, RDW 15.7 H, MPV 8.1, Gran % 77.1 H, Lymphocytes % 8.7 L, Monocytes % 3.7, Eosinophils % 10.0 H, Basophils % 0.5, Absolute Granulocytes 3.2, Absolute Lymphocytes 0.4 L, Absolute Monocytes 0.2, Absolute Eosinophils 0.4, Absolute Basophils 0 12/15/17 0720: Anion Gap 6, Estimated GFR 50 L, BUN/Creatinine Ratio 22.9, PT 12.3, INR 1.13, CBC w Diff NO MAN DIFF REQ, RBC 3.55 L, MCV 87.8, MCH 28.6, MCHC 32.6 L, RDW 16.2 H, MPV 8.3, Gran % 62.6, Lymphocytes % 18.8 L, Monocytes % 11.2 H, Eosinophils % 6.8 H, Basophils % 0.6, Absolute Granulocytes 4.3, Absolute Lymphocytes 1.3, Absolute Monocytes 0.8 H, Absolute Eosinophils 0.5, Absolute Basophils 0 12/16/17 0737: Anion Gap 7, Estimated GFR 50 L, BUN/Creatinine Ratio 22.1, PT 11.8, INR 1.08, CBC w Diff NO MAN DIFF REQ, RBC 3.53 L, MCV 88.3, MCH 28.7, MCHC 32.5 L, RDW 15.6 H, MPV 8.5, Gran % 51.9, Lymphocytes % 19.9 L, Monocytes % 10.9 H, Eosinophils % 16.8 H, Basophils % 0.5, Absolute Granulocytes 3.8, Absolute Lymphocytes 1.5, Absolute Monocytes 0.8 H, Absolute Eosinophils 1.2, Absolute Basophils 0 12/17/17 0755: 12/18/17 0710: PT 12.7 H, INR 1.16 PT 12.5, INR 1.15 12/14/17 0756: Anion Gap 9, Estimated GFR 46 L, BUN/Creatinine Ratio 20.7, PT 11.5, INR 1.05 Disposition Summary Disposition Principal Diagnosis: Acute exacerbation of COPD Paroxysmal atrial fibrillation Supple therapeutic INR Additional Diagnosis: Chronic systolic congestive heart failure Chronic kidney insufficiency History of the septic knee Discharge Disposition: home health services Discharge Instructions General Discharge Information Code Status: Full Code Patient's Diet: Healthy heart Patient's Activity: As tolerated Follow-Up Instructions/Appts: Follow-up with Dr. Lopez, Dr. Schneider, Dr. Silva, CHF/COPD clinic Medications at Discharge Discharge Medications: Stop taking the following medications: Prednisone (Prednisone) 10 MG TABLET ORAL DAILY Prednisone (Prednisone) 10 MG TABLET ORAL DAILY Qty = 22 Continue taking these medications: Digoxin (Digoxin) 125 MCG TABLET 1 Tablet ORAL DAILY Comments: Last Taken: 12/18/17 Time: 10:00 AM Amiodarone (Cordarone) 200 MG TABLET 1 Tablet ORAL DAILY Comments: Last Taken: 12/18/17 Time: 10:00 AM Pantoprazole Sodium (Protonix) 20 MG TABLET.DR 2 Tablet ORAL DAILY Qty = 30 Comments: PRILOSEC GIVEN WHILE IN HOSPITAL Last Taken: 10/30/17 Time: 5:45 am Lisinopril (Lisinopril) 10 MG TABLET 1 Tablet ORAL DAILY Comments: Last Taken: 12/18/17 Time: 10:00 AM Spironolactone (Aldactone) 25 MG TABLET 1 Tablet ORAL DAILY Qty = 30 Comments: Last Taken: 12/18/17 Time: 10:00 AM Atorvastatin Calcium (Atorvastatin Calcium) 40 MG TABLET 1 Tablet ORAL DAILY Comments: Last Taken: 12/17/17 Time: 5:00 PM Rifampin (Rifadin) 300 MG CAPSULE 1 Capsule ORAL TWICE DAILY Qty = 76 Instructions: Please follow up infectious disease Dr. Lui for further antibiotic course. His contact # [phone] Comments: Last Taken: 12/18/17 Time: 10:00 AM Cholecalciferol (Vitamin D3) (Vitamin D) 1,000 UNIT TABLET 1 Tablet ORAL DAILY Qty = 60 Comments: NOT GIVEN IN HOSPITAL Tiotropium [place] (Spiriva) 18 MCG CAP.W.DEV 1 Capsule Inhale through mouth DAILY Qty = 30 Comments: Last Taken: 12/18/17 Time: 10:00 AM Albuterol Sulfate (Proair Hfa) 90 MCG HFA.AER.AD 2 Puff Inhale through mouth EVERY 4-6 HOURS NEEDED as needed for Shortness of breath Qty = 2 Comments: Last Taken: 12/16/17 Time: 4:00 AM Albuterol Sulfate (Albuterol Sulfate) 2.5 MG/3 ML (0.083 %) VIAL.NEB 1 Vial Inhale Solution EVERY 4 HOURS NEEDED as needed for Shortness of breath Qty = 30 Comments: Last Taken: 12/18/17 Time: 1:00 PM Fluticasone/Salmeterol (Advair 250-50 Diskus) 250 MCG-50 MCG/DOSE BLST.W.DEV 1 Puff Inhale through mouth TWICE DAILY Qty = 60 Comments: PT RECEIVED SYMBICORT IN HOSPITAL. Last Taken: 12/18/17 Time: 10:00 AM Metoprolol Succ XL (Toprol XL) 25 MG TAB 1 Tablet ORAL DAILY Comments: Last Taken: 12/18/17 Time: 10:00 AM Cephalexin (Keflex) 500 MG CAPSULE 1 Capsule ORAL THREE TIMES DAILY Comments: Last Taken: 12/18/17 Time: 2:00 PM Clobetasol Propionate (Clobetasol Propionate) 0.05 % SOLUTION 1 Application On the skin ONCE A WEEK Qty = 50 Comments: NOT GIVEN IN HOSPITAL Nystatin (Nyamyc) 100,000 UNIT/GRAM POWDER 1 Application On the skin as needed for GROIN Qty = 180 Comments: NOT GIVEN IN HOSPITAL Hydrocortisone (Hydrocortisone) 2.5 % CREAM..G. 1 Application On the skin As Directed as needed for SKIN Qty = 20 Instructions: apply to affected area(s) Comments: NOT GIVEN IN HOSPITAL Triamcinolone Acetonide (Triamcinolone Acetonide) 0.1 % CREAM..G. 1 Application On the skin As Directed as needed for SKIN Qty = 454 Comments: NOT GIVEN WHILE IN HOSPITAL Clobetasol Propionate (Clobetasol Propionate) 0.05 % CREAM..G. 1 Application On the skin As Directed Qty = 180 Instructions: apply to affected area(s) Comments: NOT GIVEN IN HOSPITAL Hydroxyzine Hydrochloride (Atarax) 25 MG TAB 1 Tablet ORAL TWICE DAILY as needed for Rash Qty = 10 Instructions: . Comments: NOT GIVEN IN HOSPITAL Warfarin Sodium (Coumadin) 7.5 MG TABLET 1 Tablet ORAL DAILY Comments: Last Taken: 12/17/17 Time: 5:00 PM Start taking the following new medications: Prednisone (Prednisone) 10 MG TABLET 0 ORAL SEE INSTRUCTIONS Qty = 18 No Refills Instructions: on 12/19-12/21 take 3 on 12/22-12/24 take 2 on 12/25-12/27 take 1 Copies To: Jennie MENON,Deep Arreguin; Red Lopez MD; Mckay MENON,Aydin Bray MD Review Statement Documenting Attending: Red Lopez MD
== END 2017-12-18 14:48 | DRG 191 ==
LOC: ERH 06:03 → ERHI 06:51 → 2NA 06:51 → ENRESERV 07:58 → ENTRNSPT 08:52 → EDTRNSPTSTS 09:26 → 2NA 09:31 → CMPTRNSPT 09:44 → ENTRNSPT 12-18 14:39 → EDTRNSPTSTS 12-18 14:41 → 2NA 12-18 14:48 → CMPTRNSPT 12-18 14:51
PROVIDERS: Emergency Medicine; Internal Medicine; Student in an Organized Health Care Education/Training Program
DX: J44.1 Chronic obstructive pulmonary disease with (acute) exacerbation (principal); I13.0 Hypertensive heart and chronic kidney disease with heart failure and stage 1 through stage 4 chronic kidney disease, or unspecified chronic kidney disease; J96.11 Chronic respiratory failure with hypoxia; M00.9 Pyogenic arthritis, unspecified; B95.61 Methicillin susceptible Staphylococcus aureus infection as the cause of diseases classified elsewhere; I50.22 Chronic systolic (congestive) heart failure; E11.22 Type 2 diabetes mellitus with diabetic chronic kidney disease; I48.0 Paroxysmal atrial fibrillation; Z99.81 Dependence on supplemental oxygen; Z79.01 Long term (current) use of anticoagulants; Z79.51 Long term (current) use of inhaled steroids; Z79.52 Long term (current) use of systemic steroids; L40.9 Psoriasis, unspecified; Z66 Do not resuscitate; K21.9 Gastro-esophageal reflux disease without esophagitis; M10.9 Gout, unspecified; H26.9 Unspecified cataract; Z96.653 Presence of artificial knee joint, bilateral; R79.1 Abnormal coagulation profile; L25.9 Unspecified contact dermatitis, unspecified cause; N18.3 Chronic kidney disease, stage 3 (moderate)
CPT/HCPCS: 2NAP; 36415; 36592; 71045; 82436; 87040; 93005; 93010; 93306; 96374; 96375; J0131; J0696; J2920; J2930; J3490

== ENCOUNTER 2018-02-13 18:51 | Inpatient (IN) | payer OTHER ==
[~2018-02-13] VITALS: Ht 190.5 cm; Wt 82.4 kg
[~2018-02-13 18:51] MED LIST changes: +COUMADIN7.5 M1 PO
--- NOTE | 2018-02-13 19:02 | ED DYSPNEA/ASTHMA COMPLAINT ---
History of Present Illness General Chief Complaint: Dyspnea (COPD, CHF, Other) Stated Complaint: CHILLS, SOB Source: patient, old records Exam Limitations: no limitations Vital Signs & Intake/Output Vital Signs & Intake/Output Vital Signs Date Time Temp Pulse Resp B/P B/P Pulse O2 O2 Flow FiO2 Mean Ox Delivery Rate 02/13 2121 98.2 84 18 118/56 95 Nasal Cannula 02/13 2106 92 Nasal 3.0L Cannula 02/13 1943 92 Nasal 3.0L Cannula 02/13 1902 98.7 100 20 109/63 89 Nasal 2.0L Cannula Allergies Coded Allergies: NO KNOWN ALLERGIES (08/21/15) Reconcile Medications Albuterol Sulfate (Proair Hfa) 90 MCG HFA.AER.AD 2 PUF INH Q4-6 PRN PRN Shortness of breath (Reported) Albuterol Sulfate 2.5 MG/3 ML (0.083 %) VIAL.NEB 1 Vial INH/KIMANI Q4P PRN Shortness of breath (Reported) Amiodarone (Cordarone) 200 MG TABLET 1 TAB PO DAILY HEART (Reported) Atorvastatin Calcium 40 MG TABLET 1 TAB PO DAILY cholesterol (Reported) Cephalexin (Keflex) 500 MG CAPSULE 1 CAP PO TID prosthetic joint infection ( Reported) Cholecalciferol (Vitamin D3) (Vitamin D) 1,000 UNIT TABLET 1 TAB PO DAILY OSTEOPOROSIS Clobetasol Propionate 0.05 % SOLUTION 1 JO TOP ONCE A WEEK SCALP (Reported) Clobetasol Propionate 0.05 % CREAM..G. 1 JO TOP AD SKIN (Reported) apply to affected area(s) Digoxin 125 MCG TABLET 1 TAB PO DAILY HEART (Reported) Fluticasone/Salmeterol (Advair 250-50 Diskus) 250 MCG-50 MCG/DOSE BLST.W.DEV 1 PUF INH BID Shotness of breath (Reported) Hydrocortisone 2.5 % CREAM..G. 1 JO TOP AD PRN SKIN (Reported) apply to affected area(s) Hydroxyzine Hydrochloride (Atarax) 25 MG TAB 1 TAB PO BID PRN Rash . Lisinopril 10 MG TABLET 1 TAB PO DAILY HIGH BLOOD PRESSURE (Reported) Metoprolol Succ XL (Toprol XL) 25 MG TAB 1 TAB PO DAILY heart health ( Reported) Nystatin (Nyamyc) 100,000 UNIT/GRAM POWDER 1 JO TOP PRN GROIN (Reported) Pantoprazole Sodium (Protonix) 20 MG TABLET.DR 2 TAB PO DAILY ACID REFLUX ( Reported) Prednisone 10 MG TABLET 1 TAB PO BID STEROID (Reported) Rifampin (Rifadin) 300 MG CAPSULE 1 CAP PO BID Septic arthritis Please follow up infectious disease Dr. Lui for further antibiotic course. His contact # [phone] Tiotropium [place] (Spiriva) 18 MCG CAP.W.DEV 1 CAP INH DAILY Shortness of breath (Reported) Triamcinolone Acetonide 0.1 % CREAM..G. 1 JO TOP AD PRN SKIN (Reported) Warfarin Sodium (Coumadin) 5 MG TABLET 1 TAB PO DAILY BLOOD THINNER (Reported ) Warfarin Sodium (Coumadin) 10 MG TABLET 1 TAB PO DAILY BLOOD THINNER ( Reported) Triage Nurses Notes Reviewed? yes Onset: Gradual Duration: hour(s): Timing: recent history Severity: moderate HPI: 72YO MALE WITH hx of a fib, CHF, COPD on 2LO2, DM, CKD presents to ED complaining of worsening dyspnea and chills beginning this morning. Patient reports chronic cough which is unchanged, he is unable to produce sputum. Patient uses nebulizer treatments at home. Patient reports mild pain described as "dull soreness", 1/10, pleuritic, in central chest. This chest pain began a few hours after the patient woke up. 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 Garrett. The patient denies syncope, dizziness, vomiting, abdominal pain. (Shireen DEL VALLE,Nighat Redman) Past History Travel History Traveled to [place] past 21 day No Medical History Any Pertinent Medical History? 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 Uncle ([place] at age 40). FH: myocardial infarction SISTER FH: lung cancer FATHER Hx Contributory? No (Nighat Rae) Review of Systems Review of Systems Constitutional: Reports: see HPI. EENTM: Reports: no symptoms. Respiratory: Reports: see HPI. Cardiovascular: Reports: see HPI. GI: Reports: no symptoms. Genitourinary: Reports: no symptoms. Musculoskeletal: Reports: no symptoms. Skin: Reports: no symptoms. Neurological/Psychological: Reports: no symptoms. Hematologic/Endocrine: Reports: no symptoms. Immunologic/Allergic: Reports: no symptoms. All Other Systems: Reviewed and Negative (Nighat Rae) Physical Exam Physical Exam General Appearance: well developed/nourished, no apparent distress, alert, awake Head: atraumatic, normal appearance Eyes: Bilateral: normal appearance. Ears, Nose, Throat: normal pharynx, hearing grossly normal Neck: normal inspection, supple, full range of motion Respiratory: no respiratory distress, DIMINISHED BREATH SOUNDS BILATERALLY Cardiovascular: regular rate/rhythm, normal peripheral pulses Peripheral Pulses: 2+ radial (R), 2+ radial (L) Gastrointestinal: normal bowel sounds, soft, non-tender, no organomegaly Extremities: normal inspection, normal range of motion Neurologic/Psych: awake, alert, oriented x 3 Skin: intact, normal color, warm/dry Core Measures ACS in differential dx? Yes CVA/TIA Diagnosis No Sepsis Present: No Sepsis Focused Exam Completed? No (Nighat Rae) Progress Differential Diagnosis: AMI, bronchitis, CHF, COPD, pulmonary embolism, pneumonia, unstable angina Plan of Care: Orders Procedure Date/time Status Heart Healthy Diet 02/14 B Active Misc Message 02/13 2200 Active ED Holding Orders 02/13 2200 Active Admit to inpatient 02/13 2200 Active Vital Signs 02/13 2200 Active Code Status 02/13 2200 Active BLOOD CULTURE 02/14 2156 Active TROPONIN LEVEL 02/13 1857 Complete COMPREHENSIVE METABOLIC PANEL 02/13 1857 Complete CBC WITHOUT DIFFERENTIAL 02/13 1857 Complete B-TYPE NATRIURETIC PEP (BNP) 02/13 1857 Complete EKG 02/13 1857 Active Laboratory Tests 02/13/18 1923: Anion Gap 8, Estimated GFR 50 L, BUN/Creatinine Ratio 22.9, Glucose 89, Calcium 9.9, Total Bilirubin 0.6, AST 20, ALT 27, Alkaline Phosphatase 41, Troponin I < 0.01, Tii-E-Fubfoodhdpa Pept 1610 H, Total Protein 5.8 L, Albumin 3.4 L, Globulin 2.4, Albumin/Globulin Ratio 1.4, CBC w Diff MAN DIFF ORDERED, RBC 3.69 L, MCV 87.4, MCH 28.3, MCHC 32.4 L, RDW 17.6 H, MPV 7.9, Gran % 52.3, Lymphocytes % 11.2 L, Monocytes % 11.2 H, Eosinophils % 25.0 H, Basophils % 0.3, Absolute Granulocytes 4.4, Segmented Neutrophils 49, Band Neutrophils 4, Absolute Lymphocytes 0.9 L, Lymphocytes 6 L, Monocytes 12 H, Absolute Monocytes 0.9 H, Eosinophils 29 H, Absolute Eosinophils 2.1, Absolute Basophils 0, Platelet Estimate ADEQUATE, Poikilocytosis 1+, Anisocytosis 1+, Ovalocytes FEW Microbiology 02/14 2156 BLOOD: Blood Culture - ORD 02/14 2156 BLOOD: Blood Culture - ORD Patient's labs are stable compared to his baseline. X-ray shows no acute abnormality. Patient presented with hypoxia and is requiring increased supplemental oxygen compared to his baseline. Old records reviewed, and the past patient has been admitted for similar exacerbations. Patient does report improvement following DuoNeb. He is on 20 mg prednisone daily, will initiate IV Solu-Medrol at this time. Spoke with Dr. Blum regarding this patient, he agrees with plan for admission and recommends IV ceftriaxone at this time. Dr. Lo agrees with this plan. Diagnostic Imaging: Viewed by Me: Radiology Read. Discussed w/RAD: Radiology Read. Radiology Impression: PATIENT: TESSA YANEZ JR PRESENT AGE: 72 PATIENT ACCOUNT NO: [id number] : 45 LOCATION: [facility] ORDERING PHYSICIAN: Nighat DEL VALLE SERVICE DATE: 02/13/18 EXAM TYPE: RAD - XRY-CHEST XRAY, TWO VIEWS EXAMINATION: XR CHEST CLINICAL INFORMATION : Dyspnea and chills. COMPARISON: Chest x-ray 12/11/2017. CTA of chest 2017 TECHNIQUE: 2 views of the chest were obtained. FINDINGS: Emphysematous hyperinflation of lungs. No acute abnormality. No pulmonary vascular congestion. No infiltrate or pleural effusion. The cardiac and mediastinal contours are unchanged. There is vascular wall calcifications of the thoracic aorta. There is a healed right posterior lateral right seventh rib fracture. There is degenerative spondylosis of spine with multilevel disc height narrowing and endplate spurring of the vertebrae. IMPRESSION: No acute abnormality of the chest. DICTATED BY: Nba Rodríguez MD DATE/TIME DICTATED:02/13/182002 NATIONAL SALES ASSOCIATE:KIRSTY DATE/TIME TRANSCRIBED:02/13/182002 CONFIDENTIAL, DO NOT COPY WITHOUT APPROPRIATE AUTHORIZATION. <Electronically signed in Other Vendor System> SIGNED BY: Nba Rodríguez MD 02/13/182008 Initial ED EKG: sinus rhythm @79bpm, nonspecific ST changes, minimal ST depressions are stable compared to previous study Prior EKG: unchanged (12/11/17) (Nighat Rae) Departure Departure Disposition: STILL A PATIENT Condition: Stable Clinical Impression Primary Impression: Dyspnea Qualifiers: Dyspnea type: unspecified Qualified Code: R06.00 - Dyspnea, unspecified Secondary Impressions: Chills Referrals: Red Lopez MD (PCP/Family) Departure Forms: Customer Survey General Discharge Information Admission Note Spoke With: Kulwant MENON,Jasvir Collazo Documentation of Exam: Documentation of any treatments & extenuating circumstances including Concerns Regarding Discharge (functional status, medication knowledge or non-compliance, living conditions, etc.) that warrant an admission rather than observation: [ COPD exacerbation requiring IV steroids and antibiotics, patient presented with hypoxia and is requiring increased supplemental oxygen compared to his baseline, possible pulmonology consult, premature discharge medically unsafe] (Nighat Rae) PA/ASSIGNER Co-Sign Statement Statement: ED Attending supervision documentation- [X] I saw and evaluated the patient. I have also reviewed all the pertinent lab results and diagnostic results. I agree with the findings and the plan of care as documented in the PA's/ASSIGNER's documentation. 02/13/2018 10:03:16 PM Patient presented for evaluation of shortness of breath. Physical examination at this time after a breathing treatment and initiation of oxygen supplementation reveals a comfortable appearing gentleman with mildly diminished breath sounds bilaterally. [] I have reviewed the ED Record and agree with the PA's/ASSIGNER's documentation. [] Additions or exceptions (if any) to the PAs/ASSIGNER's note and plan are summarized below: [] (Teresita MENON,Renan Charles) Critical Care Note Critical Care Note Critical Care Time: 30-74 min (Shireen DEL VALLE,Nighat Redman)
[2018-02-13 19:38] LABS: ABSOLUTE BASOPHIL COUNT 0 /CUMM (0.0-0.2); ABSOLUTE EOSINOPHIL COUNT 2.1 /CUMM (0.0-0.7); ABSOLUTE GRANULOCYTE CT 4.4 /CUMM (1.4-6.5); ABSOLUTE LYMPH COUNT 0.9 /CUMM (1.2-3.4); ABSOLUTE MONOCYTE COUNT 0.9 /CUMM (0.10-0.60); BASOPHIL % 0.3 % (0.0-2.0); GRANULOCYTE % 52.3 % (42.2-75.2); HEMATOCRIT 32.3 % (42-52); MEAN CORPUSCULAR HGB 28.3 PG (27.0-31.0); MEAN CORPUSCULAR HGB CONC 32.4 G/DL (33.0-37.0); MEAN CORPUSCULAR VOLUME 87.4 FL (80.0-94.0); MEAN PLATELET VOLUME 7.9 FL (7.4-10.4); PLATELET COUNT 217 /CUMM (130-400); RBC DISTRIBUTION WIDTH 17.6 % (11.5-14.5); RED BLOOD CELL CT 3.69 /CUMM (4.70-6.10); WHITE BLOOD CELL COUNT 8.5 /CUMM (4.8-10.8)
[2018-02-13] MEDS ORDERED: PREDNISONE10 M2 PO (19:53)
[2018-02-13] MEDS ORDERED: COUMADIN5 M2 PO (19:56)
[2018-02-13] MEDS ORDERED: COUMADIN10 M1 PO (19:57)
--- NOTE | 2018-02-13 20:09 | RADIOLOGY REPORT ---
EXAMINATION: XR CHEST CLINICAL INFORMATION: Dyspnea and chills. COMPARISON: Chest x-ray 12/11/2017. CTA of chest 10/27/2017 TECHNIQUE: 2 views of the chest were obtained. FINDINGS: Emphysematous hyperinflation of lungs. No acute abnormality. No pulmonary vascular congestion. No infiltrate or pleural effusion. The cardiac and mediastinal contours are unchanged. There is vascular wall calcifications of the thoracic aorta. There is a healed right posterior lateral right seventh rib fracture. There is degenerative spondylosis of spine with multilevel disc height narrowing and endplate spurring of the vertebrae. IMPRESSION: No acute abnormality of the chest.
--- NOTE | 2018-02-13 22:16 | History & Physical ---
Bonny Guzman 02/13/18 2214: General Information and HPI Source of Information: patient History of Present Illness: 72 yo M with PMH of atrial fibrillation on Coumadin, congestive heart faiure, gout, COPD x 10 years, currently steroid dependant and on 2 L home Oxygen, presents to the ED with cheif complaint of SOB which started acutely this morning. He oxygen saturations this morning were 95-97% at rest but dropped down to as low as 81% when he cough to bring out the mucus. The patient has been complaining of not being able to bring up sputum,. He takes Mucinex but with no relief. He has been nebulizing 4-5 times a day for 5 years which has not been helping lately. He denies fever, but noticed some chiils in the morning. He also reports having air hunger and some tightness in the middle of his chest. He denies any recent travel, sick contacts or recent infections. Allergies/Medications Allergies: Coded Allergies: NO KNOWN ALLERGIES (08/21/15) Home Med list Albuterol Sulfate (Proair Hfa) 90 MCG HFA.AER.AD 2 PUF INH Q4-6 PRN PRN Shortness of breath (Reported) Albuterol Sulfate 2.5 MG/3 ML (0.083 %) VIAL.NEB 1 Vial INH/KIMANI Q4P PRN Shortness of breath (Reported) Amiodarone (Cordarone) 200 MG TABLET 1 TAB PO DAILY HEART (Reported) Atorvastatin Calcium 40 MG TABLET 1 TAB PO DAILY cholesterol (Reported) Cephalexin (Keflex) 500 MG CAPSULE 1 CAP PO TID prosthetic joint infection ( Reported) Cholecalciferol (Vitamin D3) (Vitamin D) 1,000 UNIT TABLET 1 TAB PO DAILY OSTEOPOROSIS Clobetasol Propionate 0.05 % SOLUTION 1 JO TOP ONCE A WEEK SCALP (Reported) Clobetasol Propionate 0.05 % CREAM..G. 1 JO TOP AD SKIN (Reported) apply to affected area(s) Digoxin 125 MCG TABLET 1 TAB PO DAILY HEART (Reported) Fluticasone/Salmeterol (Advair 250-50 Diskus) 250 MCG-50 MCG/DOSE BLST.W.DEV 1 PUF INH BID Shotness of breath (Reported) Hydrocortisone 2.5 % CREAM..G. 1 JO TOP AD PRN SKIN (Reported) apply to affected area(s) Hydroxyzine Hydrochloride (Atarax) 25 MG TAB 1 TAB PO BID PRN Rash . Lisinopril 10 MG TABLET 1 TAB PO DAILY HIGH BLOOD PRESSURE (Reported) Metoprolol Succ XL (Toprol XL) 25 MG TAB 1 TAB PO DAILY heart health ( Reported) Nystatin (Nyamyc) 100,000 UNIT/GRAM POWDER 1 JO TOP PRN GROIN (Reported) Pantoprazole Sodium (Protonix) 20 MG TABLET.DR 2 TAB PO DAILY ACID REFLUX ( Reported) Prednisone 10 MG TABLET 1 TAB PO BID STEROID (Reported) Rifampin (Rifadin) 300 MG CAPSULE 1 CAP PO BID Septic arthritis Please follow up infectious disease Dr. Lui for further antibiotic course. His contact # [phone] Tiotropium [place] (Spiriva) 18 MCG CAP.W.DEV 1 CAP INH DAILY Shortness of breath (Reported) Triamcinolone Acetonide 0.1 % CREAM..G. 1 JO TOP AD PRN SKIN (Reported) Warfarin Sodium (Coumadin) 5 MG TABLET 1 TAB PO DAILY BLOOD THINNER (Reported ) Warfarin Sodium (Coumadin) 10 MG TABLET 1 TAB PO DAILY BLOOD THINNER ( Reported) Past History Travel History Traveled to [place] past 21 day No Medical History Neurological: NONE EENT: cataracts Cardiovascular: AFIB, CHF, hypertension, hyperlipidemia Respiratory: COPD (2L O2& steroid dependent), pneumonia, O2 DEP 2L Gastrointestinal: GERD, pancreatitis Hepatic: hepatic cysts Renal: chronic kidney disease Musculoskeletal: gout Psychiatric: NONE Endocrine: diabetes (insulin-requiring) Blood Disorders: NONE Cancer(s): NONE GLASS INSERTER/Reproductive: NONE Other Medical Hx: Psoriasis History of MRSA: No History of VRE: No History of CDIFF: No Influenza Vaccine: 05/29/17 Tetanus Vaccine: 06/30/14 Surgical History Surgical History: appendectomy, cataract removal, knee replacement (bilateral) Past Family/Social History Family History Relations & Conditions if any BROTHER, ; Cause: Brain cancer. Uncle ([place] at age 40). FH: myocardial infarction SISTER FH: lung cancer FATHER Psychosocial History Where do you live? Home Who Do You Live With? spouse, 2 daughters, one son, granddaughter and her Services at Home: Oxygen Primary Language: Sinhala Functional Ability ADLs Independent: dressing, eating, toileting, bathing. Ambulation: independent IADLs Independent: shopping, housework, finances, food prep, telephone, transportation , medication admin. Review of Systems Review of Systems Constitutional: Reports: chills, malaise. Denies: diaphoresis, fever. EENTM: Reports: no symptoms. Cardiovascular: Reports: chest pain. Denies: palpitations, peripheral edema. Respiratory: Reports: cough, short of breath, sputum production. GI: Reports: no symptoms. Genitourinary: Reports: no symptoms. Musculoskeletal: Reports: gout, joint pain. Skin: Reports: no symptoms. Neurological/Psychological: Reports: no symptoms. Hematologic/Endocrine: Denies: bruising, bleeding. Exam & Diagnostic Data Last 24 Hrs of Vital Signs/I&O Vital Signs Date Time Temp Pulse Resp B/P B/P Pulse O2 O2 Flow FiO2 Mean Ox Delivery Rate 02/14 0055 93 Nasal 3.0L Cannula 02/14 0048 99.4 78 32 110/60 91 Nasal 3.0L Cannula 02/14 0045 91 Nasal 3.0L Cannula 02/14 0001 98.1 78 22 111/59 92 Nasal 3.0L Cannula 02/13 2121 98.2 84 18 118/56 95 Nasal Cannula 02/13 2106 92 Nasal 3.0L Cannula 02/13 1943 92 Nasal 3.0L Cannula 02/13 1902 98.7 100 20 109/63 89 Nasal 2.0L Cannula Intake & Output 02/14 0800 02/14 0000 02/13 1600 Intake Total 0 Output Total Balance 0 Intake, Oral 0 Patient 183 lb 185 lb Weight Weight Bed scale Reported by Patient Measurement Method Physical Exam General Appearance Alert, Oriented X3, Cooperative, Mild Distress Skin No Rashes Skin Temp/Moisture Exam: Warm/Dry Sepsis Skin Exam (color): Flushed HEENT Atraumatic, PERRLA Neck Supple Cardiovascular Regular Rate, Normal S1, Normal S2 Lungs decreased air entry B/L at lung bases; expiratory wheezes ++, diffuse rhochi apppreciated bilaterally Abdomen Normal Bowel Sounds, Soft, No Tenderness Extremities No Clubbing, No Cyanosis, Normal Pulses Assessment/Plan Assessment: The patient is a 72yo gentleman with past medical history of Afib, CHF, gout, COPD x 10 years which is steroid dependent and currently on 2L home oxygen, presents to the ER with acute exacerbation of his symtoms this morning. He reports producing greenish sputum but has difficulty in bringing it up, even after using Mucinex. He does admit to feeling a tightness in his chest which he attributes to excessive coughing. His physical examination is significant for decresed air entry at B/L lung bases, with expiratory wheezes and diffuse rhonchi. His EKG in the ER was essentially normal. The patient is notably on Coumadin along with Rifampin and Keflex. We would admit the patient to GM floor, vitals per The plan would be as follows: 1. Acute exacerbation of COPD - Continue to the supplemental O2 at 3L -Continue nebulisation -Order blood and aputum cultures -Would cover with Ceftriaxone and Azithromycin till C/S results - Continue 60mg Methylpresnisolone with eventual tapering - Monitor INR for the risk of drug interaction among patient's medications DVT prophylaxis: Coumadin Code status: DNR/DNI As Ranked By This Provider Problem List: 1. Acute exacerbation of chronic obstructive airways disease 2. Atrial fibrillation 3. CHF (congestive heart failure) 4. Gout 5. Atrial fibrillation Core Measures/Misc (04/14) Acute Coronary Syndrome ACS Diagnosis: No Congestive Heart Failure Congestive Heart Failure Diagnosis Yes Cerebrovascular Accident CVA/TIA Diagnosis: No VTE (View Protocol) VTE Risk Factors Age>40 No Mechanical VTE Prophylaxis d/t N/A MechProphylax Ordered No VTE Pharm Prophylaxis d/t NA PharmProphylax ordered Sepsis (View protocol) Sepsis Present: No If YES complete Sepsis Event Note If YES complete Sepsis Event Note LillieStefany 02/13/18 3843: General Information and HPI MD Statement: I have seen and personally examined TESSA YANEZ JR and documented this H &P. The patient is a 72 year old M who presented with a patient stated chief complaint of []. 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 He apparently developed shortness of breath early this morning when he woke up. His saturations at home are anywhere between 91-96% however he desaturated to 81% while he coughed. He tried to increase his nebulizations frequency and taking Mucinex these past few days however they do not help. He does endorse some greenish sputum production along with frequent coughing. He feels that he is unable to bring up a lot of phlegm. Denies documented fevers at home however he did have some chills early this morning. On interview denied any prolonged immobilization, sick contacts, recent travel, tick bites, chest pain, palpitations, lower extremity swelling, pleuritic chest pain. Vitals on ED temperature 98.2, heart rate 100, respiratory rate 18, blood pressure 118/56, saturating 95% on 3 L nasal. Examination significant for CVS irregularly irregular, short systolic murmur, no elevated JVD, no peripheral edema. RS significant for diffuse expiratory wheezing in all lung bases, decreased breath sounds bilaterally, bilateral rhonchi. Rest of examination unremarkable. Labs significant for no leukocytosis however elevated eosinophilia, anemia of chronic disease, proBNP 1610, BUN 32, creatinine 1.4. Chest x-ray significant for no acute abnormalities, hyperinflated lungs healed right posterior lateral seventh rib fracture. EKG: Normal sinus rhythm, QTC 420 Assessment: Acute on chronic COPD exacerbation secondary to bronchitis Problem list Acute on chronic COPD exacerbation Atrial fibrillation on Coumadin History of septic prosthetic knee joints Hypertension Coronary artery disease Heart Failure with preserved EF History of gout Plan Admit to general medicine floor, vitals per protocol, TRC, ATC nebs every 4 hours, continue supplemental oxygen, chest PT Was given 125 IV Solu-Medrol in the ED and one-time dose of IV ceftriaxone and IV azithromycin. We will continue with 60 mg of Solu-Medrol daily, will continue with ceftriaxone and azithromycin pending blood/sputum cultures, follow -up urinary strep and Legionella antigen As there is a lot of interactions with his medications specifically with QTC prolongation recommend checking daily EKG. INR currently 1.25, will dose his home medication of 15 mg of Coumadin this was verified from the patient. We will recheck INR in the morning Continue his home meds of amiodarone, statin, digoxin, lisinopril, metoprolol XL , Atarax, Keflex, rifampin DVT prophylaxis: Coumadin Heart healthy diet DNR/DNI Kulwant MENON,[facility] 02/14/18 1330: Core Measures/Misc (04/14) Sepsis (View protocol) If YES complete Sepsis Event Note If YES complete Sepsis Event Note Attending MD Review Statement Attending Statement Attending MD Statement: examined this patient, discuss w/resident/PA/SEAL SKINNER, agreed w/resident/PA/SEAL SKINNER, discussed with family, reviewed EMR data (avail), discussed with nursing, discussed with case mgmt, reviewed images, amended to note Attending Assessment/Plan: Seen and examined SIGNIFICANT DATA Chest x-ray unremarkable Support cultures unremarkable Creatinine 1.5 stable potassium 5.3 anion gap was normal white count was not elevated upon admission but however patient did have 25% eosinophils which he seems to have had for years 72-year-old male with past medical history of atrial fibrillation, CHF, hypertension, hyperlipidemia, COPD on 2 L of oxygen at home, chronic eosinophilia, probable significant asthmatic component, GERD, history of pancreatitis, CAD, gout diabetes mellitus, tobacco use, presented with significant cough wheezing shortness of breath and hypoxemia with eosinophilia. IMPRESSION PT with sig Chronic copd on 2 litres, now with acute COPD exacerbation with yellow green sputum. Has significant eosinophilia with prior rash. Patient needs outpatient evaluation by hematology probably Probable asthmatic component with eosinophilia as well Chronic kidney disease IHD DM Pafib on warfarin INR is low Previous septic knee now on prophylactic antibiotic including Keflex and rifampin RECOMMENDATION Continue IV steroids Sputum culture Continue outpatient antibiotic regimen Discontinue ceftriaxone after today Sputum culture Check digoxin level discontinue the dig for now as his heart rate is controlled and his ejection fraction is normal Continue warfarin increased dose Needs outpatient workup for eosinophilia She had blood work tomorrow including LFTs Repeat TSH and free T4 Continue other medications
[2018-02-13 23:33] LABS: PT 13.7 SEC (9.4-12.5)
[2018-02-14 00:48] VITALS: BP 110/60
[2018-02-14 06:32] VITALS: BP 130/67
--- NOTE | 2018-02-14 07:02 | PN- Housestaff ---
Hayden Marcum 02/14/18 0702: Subjective Follow-up For: COPD exacerbation Subjective: Patient seen and examined at the bedside. On 3L oxygen at this time, more than home 2L. Complains of mild headache, feels it may be related to decreased food intake over past 24 hours. VERY mild sternal pain, increased when breathing in deeply or coughing, likely due to muscular fatigue. Otherwise no complaints. Review of Systems Constitutional: Reports: no symptoms. Musculoskeletal: Reports: see HPI. Neurological/Psychological: Reports: see HPI, headache. Objective Last 24 Hrs of Vital Signs/I&O Vital Signs Date Time Temp Pulse Resp B/P B/P Pulse O2 O2 Flow FiO2 Mean Ox Delivery Rate 02/14 1008 75 02/14 0632 98.4 75 20 130/67 96 Nasal 4.0L Cannula 02/14 0055 93 Nasal 3.0L Cannula 02/14 0048 99.4 78 32 110/60 91 Nasal 3.0L Cannula 02/14 0045 91 Nasal 3.0L Cannula 02/14 0001 98.1 78 22 111/59 92 Nasal 3.0L Cannula 02/13 2121 98.2 84 18 118/56 95 Nasal Cannula 02/13 2106 92 Nasal 3.0L Cannula 02/13 1943 92 Nasal 3.0L Cannula 02/13 1902 98.7 100 20 109/63 89 Nasal 2.0L Cannula Intake & Output 02/14 1600 02/14 0800 02/14 0000 Intake Total 400 0 Output Total 500 Balance -100 0 Intake, Oral 400 0 Output, Urine 500 Patient 183 lb 185 lb Weight Weight Bed scale Reported by Patient Measurement Method Physical Exam General Appearance: Alert, Oriented X3, Cooperative, No Acute Distress Skin: No Rashes, No Breakdown Skin Temp/Moisture Exam: Warm/Dry HEENT: Atraumatic, PERRLA, EOMI Neck: Supple, No JVD, No thryomegaly Lymphatic: Cervical nl Cardiovascular: Regular Rate, Normal S1, Normal S2, No Murmurs Lungs: wheezes heard bilaterally in lower lobes. overall decreased air movement Abdomen: Soft, No Tenderness, No Hepatospenomegaly Neurological: Normal Speech, Strength at 5/5 X4 Ext, Normal Tone, Sensation Intact Extremities: No Clubbing, No Cyanosis, No Edema Current Medications: Current Medications Sig/Luis Start time Last Medication Dose Route Stop Time Status Admin Acetaminophen 650 MG Q6P PRN 02/14 0245 AC PO Albuterol Sulfate 3 ML Q4P PRN 02/14 0115 AC 02/14 INH 0055 Albuterol Sulfate 2 PUF Q4-6 PRN PRN 02/13 2315 AC INH Albuterol Sulfate 3 ML ONCE ONE 02/13 2100 DC 02/13 INH 02/13 2101 210 Amiodarone HCl 200 MG DAILY 02/14 09 AC 02/14 PO 1008 Atorvastatin Calcium 40 MG 1700 02/14 1700 AC PO Azithromycin 500 MG DAILY 02/14 09 AC 02/14 Sodium Chloride 250 ML IV 1010 Ceftriaxone Sodium 1,000 MG DAILY 02/14 09 AC 02/14 IV 1007 Ceftriaxone Sodium 0 .STK-MED ONE 02/14 2216 DC .ROUTE Ceftriaxone Sodium 1,000 MG ONCE ONE 02/13 2200 DC 02/13 IV 02/13 Cephalexin 0 .STK-MED ONE 02/14 0018 DC PO Cephalexin 0 .STK-MED ONE 02/14 0016 DC PO Cephalexin 500 MG TID 02/13 2311 AC 02/14 PO 02/14 231 1008 Digoxin 0.125 MG DAILY 02/14 09 AC 02/14 PO 1008 Ipratropium [place] 2.5 ML ONCE ONE 02/13 2100 DC 02/13 INH 02/13 2101 210 Lisinopril 10 MG DAILY 02/14 0900 AC 02/14 PO 1008 Methylprednisolone 60 MG DAILY 02/14 09 AC 02/14 IV 02/25 0901 1007 Methylprednisolone 0 .STK-MED ONE 02/13 215 DC .ROUTE Methylprednisolone 125 MG ONCE ONE 02/13 2145 DC 02/13 IV 02/13 2146 220 Metoprolol Succinate 25 MG DAILY 02/14 09 AC 02/14 PO 1009 Prednisone 60 MG DAILY 02/14 0900 CAN PO Rifampin 300 MG BID 02/14 09 AC 02/14 PO 1009 Warfarin Sodium 15 MG ONCE ONE 02/14 0030 DC 02/14 PO 02/14 0031 0127 Last 24 Hrs of Lab/Chacorta Results Last 24 Hrs of Labs/Mics: Laboratory Tests 02/14/18 0635: Anion Gap 8, Estimated GFR 46 L, BUN/Creatinine Ratio 22.7, PT 13.5 H, INR 1.24 H 02/13/181922: Anion Gap 8, Estimated GFR 50 L, BUN/Creatinine Ratio 22.9, Glucose 89, Calcium 9.9, Total Bilirubin 0.6, AST 20, ALT 27, Alkaline Phosphatase 41, Troponin I < 0.01, Ace-B-Szfqlhbrocn Pept 1610 H, Total Protein 5.8 L, Albumin 3.4 L, Globulin 2.4, Albumin/Globulin Ratio 1.4, PT 13.7 H, INR 1.25 H, CBC w Diff MAN DIFF ORDERED, RBC 3.69 L, MCV 87.4, MCH 28.3, MCHC 32.4 L, RDW 17.6 H, MPV 7.9, Gran % 52.3, Lymphocytes % 11.2 L, Monocytes % 11.2 H, Eosinophils % 25.0 H, Basophils % 0.3, Absolute Granulocytes 4.4, Segmented Neutrophils 49, Band Neutrophils 4, Absolute Lymphocytes 0.9 L, Lymphocytes 6 L, Monocytes 12 H, Absolute Monocytes 0.9 H, Eosinophils 29 H, Absolute Eosinophils 2.1, Absolute Basophils 0, Platelet Estimate ADEQUATE, Poikilocytosis 1+, Anisocytosis 1+, Ovalocytes FEW Microbiology 02/14 600 URINE ROUT: Legionella Antigen - COMP 02/14 600 URINE ROUT: Streptococcus pneumoniae Antigen (M - COMP 02/13 2359 BLOOD: Blood Culture - RECD 02/13 2350 BLOOD: Blood Culture - RECD Orders EKG Findings: Sinus rhythm, premature atrial complexes Radiology Findings: SERVICE DATE: 02/13/18 EXAM TYPE: RAD - XRY-CHEST XRAY, TWO VIEWS IMPRESSION: No acute abnormality of the chest. Assessment/Plan Assessment: The patient is a 72yo gentleman with past medical history of Afib, CHF, gout, COPD x 10 years which is steroid dependent and currently on 2L home oxygen, presents to the ER with acute exacerbation of his symtoms this morning. He reports producing greenish sputum but has difficulty in bringing it up, even after using Mucinex.He does admit to feeling a tightness in his chest which he attributes to excessive coughing. His physical examination is significant for decresed air entry at B/L lung bases, with expiratory wheezes and diffuse rhonchi. His EKG in the ER was essentially normal. The patient is notably on Coumadin along with Rifampin and Keflex. Problem list/plan: Acute exacerbation of COPD: -Continue supplemental oxygen at 3 L, which is above home baseline of 2 L -Check digoxin level discontinue the dig for now as his heart rate is controlled and his ejection fraction is normal -Continue warfarin increased dose -Needs outpatient workup for eosinophilia -blood work tomorrow including LFTs -Repeat TSH and free T4 Chronic conditions (A. fib, CHF, gout) DVT prophylaxis: Patient is already anticoagulated on heparin, provide ALPS Heart healthy diet Patient is DNR DNI Problem List: 1. Acute exacerbation of chronic obstructive airways disease 2. Diabetes 3. Subtherapeutic anticoagulation 4. Paroxysmal A-fib Pain Ratin Pain Location: ~sternum; likely due to muscular strain. patient rates as 0.5/10 Pain Goal: Remain pain free Pain Plan: none in place Tomorrow's Labs & Rationales: CBC, INR, PTT Kulwant MENON,[facility] 02/14/18 1339: Attending MD Review Statement Attending Statement Attending MD Statement: examined this patient, discuss w/resident/PA/FIELD CROP FARMER, agreed w/resident/PA/FIELD CROP FARMER, discussed with family, reviewed EMR data (avail), discussed with nursing, discussed with case mgmt, reviewed images, amended to note Attending Assessment/Plan: Seen and examined SIGNIFICANT DATA Chest x-ray unremarkable Support cultures unremarkable Creatinine 1.5 stable potassium 5.3 anion gap was normal white count was not elevated upon admission but however patient did have 25% eosinophils which he seems to have had for years 72-year-old male with past medical history of atrial fibrillation, CHF, hypertension, hyperlipidemia, COPD on 2 L of oxygen at home, chronic eosinophilia, probable significant asthmatic component, GERD, history of pancreatitis, CAD, gout diabetes mellitus, tobacco use, presented with significant cough wheezing shortness of breath and hypoxemia with eosinophilia. IMPRESSION PT with sig Chronic copd on 2 litres, now with acute COPD exacerbation with yellow green sputum. Has significant eosinophilia with prior rash. Patient needs outpatient evaluation by hematology probably Probable asthmatic component with eosinophilia as well Chronic kidney disease IHD DM Pafib on warfarin INR is low Previous septic knee now on prophylactic antibiotic including Keflex and rifampin RECOMMENDATION Continue IV steroids Sputum culture Continue outpatient antibiotic regimen Discontinue ceftriaxone after today Sputum culture Check digoxin level discontinue the dig for now as his heart rate is controlled and his ejection fraction is normal Continue warfarin increased dose Needs outpatient workup for eosinophilia She had blood work tomorrow including LFTs Repeat TSH and free T4 Continue other medications
[2018-02-14 08:54] LABS: PT 13.5 SEC (9.4-12.5)
--- NOTE | 2018-02-14 13:30 | Admission Certification ---
Admission Certification Certification Statement - As attending physician, I certify that at the time of - admission, based on clinical presentation, severity of - symptoms, need for further diagnostic testing and - therapeutic interventions, and risk of adverse outcomes - without in-hospital treatment, in my clinical assessment, - this patient requires an acute hospital stay for a minimum - of two nights or longer. I have also considered psychsocial - factors such as support system, advanced age, financial - issues, cognitive issues, and failed out-patient treatments, - past re-admission history, safety of patient, and lack of - compliance as applicable. Specific rationale supporting this admission is: severe copd exacerbation
[2018-02-14 15:10] VITALS: BP 124/66
[2018-02-14 23:20] VITALS: BP 122/86
[2018-02-15 06:12] VITALS: BP 122/60
--- NOTE | 2018-02-15 08:49 | PN- Housestaff ---
Subjective Follow-up For: COPD exacerbation Subjective: Patient seen and the bedside. Remains on 3 L oxygen at this time, more than home 02. States that he was unable to sleep well last night, he has had increased difficulty breathing and coughing. [facility] gave him a "duck call "loosen up the mucus in his chest and he has been using that. Otherwise no complaints Review of Systems Constitutional: Reports: no symptoms. EENTM: Reports: no symptoms. Cardiovascular: Reports: chest pain (very mild). Respiratory: Reports: cough, short of breath, sputum production. Gastrointestinal: Reports: no symptoms. Genitourinary: Reports: no symptoms. Musculoskeletal: Reports: no symptoms. Skin: Reports: no symptoms. Neurological/Psychological: Reports: no symptoms. Objective Last 24 Hrs of Vital Signs/I&O Vital Signs Date Time Temp Pulse Resp B/P B/P Pulse O2 O2 Flow FiO2 Mean Ox Delivery Rate 02/15 0612 97.9 67 20 122/60 94 02/15 0203 93 Nasal 3.0L Cannula 02/15 0000 93 Nasal 3.0L Cannula 02/14 2320 98.0 75 18 122/86 92 02/14 2029 94 Nasal 2.0L Cannula 02/14 1601 96 Nasal 3.0L Cannula 02/14 1600 Nasal 3.0L Cannula 02/14 1510 98.2 73 20 124/66 92 Nasal 4.0L Cannula 02/14 1044 Nasal 2.0L Cannula 02/14 1008 75 Intake & Output 02/15 1600 02/15 0800 02/15 0000 Intake Total 400 480 Output Total Balance 400 480 Intake, Oral 400 480 Patient 183 lb Weight Weight Bed scale Measurement Method Physical Exam General Appearance: Alert, Oriented X3, Cooperative, No Acute Distress Skin: No Rashes, No Breakdown Skin Temp/Moisture Exam: Warm/Dry HEENT: Atraumatic, PERRLA, EOMI Neck: Supple, No JVD, No thryomegaly Lymphatic: Cervical nl Cardiovascular: Regular Rate, Normal S1, Normal S2, No Murmurs Lungs: decreased air movement, global wheezing inspiratory and expiratory Abdomen: Soft, No Tenderness, No Hepatospenomegaly Neurological: Normal Speech, Strength at 5/5 X4 Ext, Normal Tone, Sensation Intact Extremities: No Clubbing, No Cyanosis, No Edema Vascular: Normal Pulses, Pulses Symmetrical Current Medications: Current Medications Sig/Luis Start time Last Medication Dose Route Stop Time Status Admin Acetaminophen 650 MG Q6P PRN 02/14 0245 AC 02/15 PO 0300 Albuterol Sulfate 3 ML EVERY 4 HRS/AWAKE 02/14 1200 AC 02/15 INH 0448 Albuterol Sulfate 3 ML Q4P PRN 02/14 0115 AC 02/14 INH 0055 Albuterol Sulfate 2 PUF Q4-6 PRN PRN 02/13 2315 AC INH Amiodarone HCl 200 MG DAILY 02/14 09 AC 02/14 PO 1008 Atorvastatin Calcium 40 MG 1700 02/14 1700 AC 02/14 PO 1640 Azithromycin 250 MG DAILY 02/15 0900 AC PO 02/18 0901 Azithromycin 500 MG DAILY 02/14 0900 DC 02/14 Sodium Chloride 250 ML IV 1010 Ceftriaxone Sodium 1,000 MG DAILY 02/14 0900 DC 02/14 IV 02/14 2355 1007 Cephalexin 500 MG TID 02/13 2311 DC 02/14 PO 02/14 2310 2015 Digoxin 0.125 MG DAILY 02/14 0900 DC 02/14 PO 1008 Lisinopril 10 MG DAILY 02/14 0900 AC 02/14 PO 1008 Methylprednisolone 60 MG DAILY 02/14 0900 AC 02/14 IV 02/25 0901 1007 Metoprolol Succinate 25 MG DAILY 02/14 0900 AC 02/14 PO 1009 Patient Medication 1 ED ONE ONE 02/14 1600 DC 02/14 Teaching ED 02/14 1601 1640 Rifampin 300 MG BID 02/14 0900 AC 02/14 PO 2015 Warfarin Sodium 7.5 MG COUMADIN 02/14 1700 DC 02/14 PO 02/14 2359 1640 Last 24 Hrs of Lab/Chacorta Results Last 24 Hrs of Labs/Mics: Laboratory Tests 02/15/18 0709: Sodium Pending, Potassium Pending, Chloride Pending, Carbon Dioxide Pending, Anion Gap Pending, BUN Pending, Creatinine Pending, BUN/Creatinine Ratio Pending , Total Bilirubin Pending, Direct Bilirubin Pending, AST Pending, ALT Pending, Alkaline Phosphatase Pending, Total Protein Pending, Albumin Pending, TSH Pending, Free T4 Pending, Total T3 Pending, PT Pending, INR Pending, Digoxin Pending Orders EKG Findings: Sinus rhythm, premature atrial complexes Radiology Findings: SERVICE DATE: 07 EXAM TYPE: RAD - XRY-CHEST XRAY, TWO VIEWS IMPRESSION: No acute abnormality of the chest. Assessment/Plan Assessment: The patient is a 72yo gentleman with past medical history of Afib, CHF, gout, COPD x 10 years which is steroid dependent and currently on 2L home oxygen, presents to the ER with acute exacerbation of his symtoms this morning. He reports producing greenish sputum but has difficulty in bringing it up, even after using Mucinex.He does admit to feeling a tightness in his chest which he attributes to excessive coughing. His physical examination is significant for decresed air entry at B/L lung bases, with expiratory wheezes and diffuse rhonchi. His EKG in the ER was essentially normal. The patient is notably on Coumadin along with Rifampin and Keflex. Problem list/plan: Acute exacerbation of COPD: -Continue supplemental oxygen at 3 L, which is above home baseline of 2 L -Check digoxin level discontinue the dig for now as his heart rate is controlled and his ejection fraction is normal -Continue warfarin increased dose -Needs outpatient workup for eosinophilia -blood work tomorrow including LFTs -Repeat TSH and free T4 Chronic conditions (A. fib, CHF, gout) DVT prophylaxis: Patient is already anticoagulated on heparin, provide ALPS Heart healthy diet Patient is DNR DNI Problem List: 1. Acute exacerbation of chronic obstructive airways disease 2. Diabetes Pain Ratin Pain Location: none Pain Goal: Remain pain free Pain Plan: none in place Tomorrow's Labs & Rationales: none planned
--- NOTE | 2018-02-15 12:04 | PN- Pulmonary ---
Subjective HPI/Critical Care Issues: Patient seen and the bedside. Remains on 3 L oxygen at this time, more than home 02. States that he was unable to sleep well last night, he has had increased difficulty breathing and coughing. TRC was given last night and has improved Review of Systems Constitutional: Reports: no symptoms. EENTM: Reports: no symptoms. Cardiovascular: Reports: chest pain (very mild). Respiratory: Reports: cough, short of breath, sputum production. Gastrointestinal: Reports: no symptoms. Genitourinary: Reports: no symptoms. Musculoskeletal: Reports: no symptoms. Skin: Reports: no symptoms. Neurological/Psychological: Reports: no symptoms Objective Current Medications: Current Medications Sig/Luis Start time Last Medication Dose Route Stop Time Status Admin Acetaminophen 650 MG .STK-MED ONE 02/15 0259 DC PO 02/15 0300 Acetaminophen 650 MG Q6P PRN 02/14 0245 AC 02/15 PO 0300 Albuterol Sulfate 3 ML EVERY 4 HRS/AWAKE 02/14 1200 AC 02/15 INH 0850 Albuterol Sulfate 3 ML Q4P PRN 02/14 0115 AC 02/15 INH 1143 Albuterol Sulfate 2 PUF Q4-6 PRN PRN 02/13 2315 AC INH Amiodarone HCl 200 MG DAILY 02/14 09 AC 02/15 PO 0847 Atorvastatin Calcium 40 MG 1700 02/14 1700 AC 02/14 PO 1640 Azithromycin 250 MG DAILY 02/15 0900 AC 02/15 PO 02/18 0901 0847 Azithromycin 500 MG DAILY 02/14 09 DC 02/14 Sodium Chloride 250 ML IV 1010 Ceftriaxone Sodium 1,000 MG DAILY 02/14 09 DC 02/14 IV 02/14 2355 1007 Cephalexin 500 MG TID 02/13 2311 DC 02/14 PO 02/14 2310 2015 Digoxin 0.125 MG DAILY 02/14 09 DC 02/14 PO 1008 Lisinopril 10 MG DAILY 02/14 09 AC 02/15 PO 0847 Methylprednisolone 60 MG DAILY 02/14 0900 AC 02/15 IV 02/25 0901 1003 Metoprolol Succinate 25 MG DAILY 02/14 0900 AC 02/15 PO 0847 Patient Medication 1 ED ONE ONE 02/14 1600 DC 02/14 Teaching ED 02/14 1601 1640 Rifampin 300 MG BID 02/14 0900 AC 02/15 PO 0847 Warfarin Sodium 7.5 MG COUMADIN 1700 02/14 1700 DC 02/14 PO 02/14 3499 1640 Vital Signs & I&O Last 24 Hrs of Vitals and I&O: Vital Signs Date Time Temp Pulse Resp B/P B/P Pulse O2 O2 Flow FiO2 Mean Ox Delivery Rate 02/15 0851 91 Nasal 2.0L Cannula 02/15 0847 67 122/60 02/15 0847 67 122/60 02/15 0847 67 122/60 02/15 0800 94 Nasal 3.0L Cannula 02/15 0612 97.9 67 20 122/60 94 02/15 0203 93 Nasal 3.0L Cannula 02/15 0000 93 Nasal 3.0L Cannula 02/14 2320 98.0 75 18 122/86 92 02/14 2029 94 Nasal 2.0L Cannula 02/14 1601 96 Nasal 3.0L Cannula 02/14 1600 Nasal 3.0L Cannula 02/14 1510 98.2 73 20 124/66 92 Nasal 4.0L Cannula Intake & Output 02/15 1600 02/15 0800 02/15 0000 Intake Total 400 480 Output Total Balance 400 480 Intake, Oral 400 480 Patient 183 lb Weight Weight Bed scale Measurement Method Impression/Plan Impression/Plan Impression/Plan: General Appearance Alert, Oriented X3, Cooperative, Mild Distress Skin No Rashes Skin Temp/Moisture Exam: Warm/Dry Sepsis Skin Exam (color): Flushed HEENT Atraumatic, PERRLA Neck Supple Cardiovascular Regular Rate, Normal S1, Normal S2 Lungs decreased air entry B/L at lung bases; expiratory wheezes ++, diffuse rhochi apppreciated bilaterally Abdomen Normal Bowel Sounds, Soft, No Tenderness Extremities No Clubbing, No Cyanosis, Normal Pulses 72-year-old male with past medical history of atrial fibrillation, CHF, hypertension, hyperlipidemia, COPD on 2 L of oxygen at home, chronic eosinophilia, probable significant asthmatic component, GERD, history of pancreatitis, CAD, gout diabetes mellitus, tobacco use, presented with significant cough wheezing shortness of breath and hypoxemia with eosinophilia. IMPRESSION PT with sig Chronic copd on 2 litres, now with * Acute COPD exacerbation with yellow green sputum. * Has significant eosinophilia with prior rash. Patient needs outpatient evaluation by hematology probably * Probable asthmatic component with eosinophilia as well * Chronic kidney disease * IHD * DM * Pafib on warfarin / INR is low * Previous septic knee now on prophylactic antibiotic including Keflex and rifampin RECOMMENDATION Continue IV steroids Sputum culture Continue outpatient antibiotic regimen including keflex Sputum culture induce if have to Check digoxin level discontinue the dig for now as his heart rate is controlled and his ejection fraction is normal Continue warfarin give 7.5 today Needs outpatient workup for eosinophilia Add b12 level to this am's lab IF green sputum persists then obtain a culture and start on po moxi Continue other medications
[2018-02-15 14:29] VITALS: BP 124/68
[2018-02-15 21:30] VITALS: BP 115/57
[2018-02-16 07:12] VITALS: BP 108/49
[2018-02-16 08:20] VITALS: BP 120/60
[2018-02-16 09:03] LABS: PT 14.2 SEC (9.4-12.5)
--- NOTE | 2018-02-16 11:29 | PN- Housestaff ---
Subjective Follow-up For: COPD Exacerbation Subjective: Patient seen and examined at bedside. Patient states he did very rough night last night. Patient states that he did not sleep at all, required 2 nebulizer treatments in addition to the prescribed treatments. Patient states that he received 1 treatment 1 AM and 1 at 5 AM. Patient states this morning was also rough, however the time of interview patient states he feels much better. Patient states last night was probably the worst it has ever been in terms of his COPD exacerbations. Denies fevers/chills/night sweats/chest pain/abdominal pain/urinary symptoms/lower extremity edema Review of Systems Constitutional: Reports: see HPI. Objective Last 24 Hrs of Vital Signs/I&O Vital Signs Date Time Temp Pulse Resp B/P B/P Pulse O2 O2 Flow FiO2 Mean Ox Delivery Rate 02/16 0854 92 Nasal 2.0L Cannula 02/16 0825 78 120/60 02/16 0825 78 120/60 02/16 0825 78 120/60 02/16 0820 78 120/60 94 Nasal 3.0L Cannula 02/16 0800 94 Nasal 3.0L Cannula 02/16 0712 97.8 76 22 108/49 99 02/16 0300 93 Nasal 4.0L Cannula 02/16 0055 91 Nasal 3.0L Cannula 02/16 0000 94 Nasal 2.0L Cannula 02/15 2130 98.0 76 20 115/57 93 Nasal 4.0L Cannula 02/15 1949 92 Nasal 2.0L Cannula 02/15 1600 97 Nasal 2.0L Cannula 02/15 1558 92 Nasal 2.0L Cannula 02/15 1429 98.7 72 20 124/68 97 Room Air Intake & Output 02/16 1600 02/16 0800 02/16 0000 Intake Total 120 240 Output Total 625 Balance -625 120 240 Intake, Oral 120 240 Output, Urine 625 Patient 183 lb Weight Weight Bed scale Measurement Method Physical Exam General Appearance: Alert, Oriented X3, Cooperative, No Acute Distress Skin: mild rash L extremity nonpruritic Cardiovascular: Regular Rate, Normal S1, Normal S2 Lungs: diminished in all tinsley, faint expiratory wheeze LLL, RML RLL Abdomen: Soft, No Tenderness Neurological: Sensation Intact Extremities: No Edema Current Medications: Current Medications Sig/Luis Start time Last Medication Dose Route Stop Time Status Admin Acetaminophen 650 MG .STK-MED ONE 02/16 0033 DC PO 02/16 0034 Acetaminophen 650 MG .STK-MED ONE 02/15 1726 DC PO 02/15 1727 Acetaminophen 650 MG Q6P PRN 02/14 0245 AC 02/16 PO 0034 Albuterol Sulfate 3 ML EVERY 4 HRS/AWAKE 02/14 1200 AC 02/16 INH 1156 Albuterol Sulfate 3 ML Q4P PRN 02/14 0115 AC 02/15 INH 1143 Albuterol Sulfate 2 PUF Q4-6 PRN PRN 02/13 2315 AC 02/16 INH 0254 Amiodarone HCl 200 MG DAILY 02/14 0900 AC 02/16 PO 0825 Atorvastatin Calcium 40 MG 1700 02/14 1700 AC 02/15 PO 1649 Azithromycin 250 MG DAILY 02/15 09 AC 02/16 PO 02/18 0901 0825 Cephalexin 500 MG TID 02/16 1400 UNVr PO Cyanocobalamin 2,000 MCG DAILY 02/17 0900 AC PO Cyanocobalamin 1,000 MCG ONCE ONE 02/16 1345 AC SC 02/16 1346 Lisinopril 10 MG DAILY 02/14 0900 AC 02/16 PO 0825 Methylprednisolone 60 MG DAILY 02/14 0900 DC 02/16 IV 02/25 0901 0826 Metoprolol Succinate 25 MG DAILY 02/14 0900 AC 02/16 PO 0825 Prednisone 50 MG DAILY 02/17 0900 AC PO Ramelteon 8 MG ONCE ONE 02/15 2100 DC 02/15 PO 02/15 2101 2239 Rifampin 300 MG BID 02/14 0900 AC 02/16 PO 0825 Warfarin Sodium 10 MG COUMADIN 1700 ONE 02/16 1700 AC PO 02/16 1701 Warfarin Sodium 7.5 MG COUMADIN 1700 ONE 02/15 1700 DC 02/15 PO 02/15 1701 1717 Last 24 Hrs of Lab/Chacorta Results Last 24 Hrs of Labs/Mics: Laboratory Tests 02/16/18 0710: PT 14.2 H, INR 1.30 H Assessment/Plan Assessment: The patient is a 72yo gentleman with past medical history of Afib, CHF, gout, COPD 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 Will taper to 50mg PO steroids on 02/17 -On 2L at this time with sats 92-94% -TRC and Nebulizers, PRN -F/u blood cultures. If patient has green sputum will get sputum cultures -On azithromycin 250mg daily; day 3; had two days of Ceftriaxone (02/13 + 02/14) #Afib - stable -Will recieve 10mg coumadin tonight, will recheck tomorrow morning -On amiodarone, metoprolol #B12 deficiency -Will recieve 1000U subq today; to be started on 2000U PO daily tomorrow (02/17) #Eosinophilia with rash -Needs outpatient workup for eosinophilia with hematology. Per patient has seen immunology, allergy, dermatology without resolution #Previous Septic Knee -On prophylactic abx; rifampin and keflex DVT ppx IV access DNR/DNI Tolerating Heart Healthy Diet Dispo- to home Problem List: 1. Acute exacerbation of chronic obstructive airways disease Pain Ratin Pain Location: na Pain Goal: Pain 4 or less Pain Plan: pathway Tomorrow's Labs & Rationales: INR
--- NOTE | 2018-02-16 13:05 | PN- Pulmonary ---
Subjective HPI/Critical Care Issues: Feels better Had a rough last night with wheezing and dyspnea Laboratory Tests 02/16 02/15 02/15 0710 0922 0709 Chemistry Sodium (137 - 145 mmol/L) 139 Potassium (3.5 - 5.1 mmol/L) 4.3 Chloride (98 - 107 mmol/L) 97 L Carbon Dioxide (22 - 30 mmol/L) 31 H Anion Gap (5 - 16) 10 BUN (9 - 20 mg/dL) 35 H Creatinine (0.7 - 1.2 mg/dL) 1.4 H Estimated GFR (>60 ml/min) 50 L BUN/Creatinine Ratio (7 - 25 %) 25.0 Total Bilirubin (0.2 - 1.3 mg/dL) 0.2 Direct Bilirubin (< 0.4 mg/dL) 0.2 AST (17 - 59 U/L) 19 ALT (21 - 72 U/L) 27 Alkaline Phosphatase (< 127 U/L) 46 Total Protein (6.3 - 8.2 g/dL) 6.1 L Albumin (3.5 - 5.0 g/dL) 3.7 Vitamin B12 (239 - 931 pg/mL) 288 TSH (0.270 - 4.200 uIU/mL) 4.570 H Free T4 (0.78 - 2.44 ng/dL) 1.82 Total T3 (0.97 - 1.69 ng/mL) 0.97 Coagulation PT (9.4 - 12.5 SEC) 14.2 H 16.0 H INR (0.90 - 1.17) 1.30 H 1.46 H Toxicology Digoxin (0.8 - 2.0 ng/mL) 0.5 L Microbiology Date/Time Procedure - Status Source Growth 02/14 06 Legionella Antigen - COMP URINE ROUT 02/14 600 Streptococcus pneumoniae Antigen (M - COMP URINE ROUT 02/13 2359 Blood Culture - RES BLOOD 02/13 2350 Blood Culture - RES BLOOD Objective Current Medications: Current Medications Sig/Luis Start time Last Medication Dose Route Stop Time Status Admin Acetaminophen 650 MG .STK-MED ONE 02/16 0033 DC PO 02/16 0034 Acetaminophen 650 MG .STK-MED ONE 02/15 1726 DC PO 02/15 1727 Acetaminophen 650 MG Q6P PRN 02/14 0245 AC 02/16 PO 0034 Albuterol Sulfate 3 ML EVERY 4 HRS/AWAKE 02/14 1200 AC 02/16 INH 1156 Albuterol Sulfate 3 ML Q4P PRN 02/14 0115 AC 02/15 INH 1143 Albuterol Sulfate 2 PUF Q4-6 PRN PRN 02/13 2315 AC 02/16 INH 0254 Amiodarone HCl 200 MG DAILY 02/14 0900 AC 02/16 PO 0825 Atorvastatin Calcium 40 MG 1700 02/14 1700 AC 02/15 PO 1649 Azithromycin 250 MG DAILY 02/15 0900 AC 02/16 PO 02/18 0901 0825 Lisinopril 10 MG DAILY 02/14 0900 AC 02/16 PO 0825 Methylprednisolone 60 MG DAILY 02/14 0900 AC 02/16 IV 02/25 0901 0826 Metoprolol Succinate 25 MG DAILY 02/14 0900 AC 02/16 PO 0825 Ramelteon 8 MG ONCE ONE 02/15 2100 DC 02/15 PO 02/15 2101 2239 Rifampin 300 MG BID 02/14 09 AC 02/16 PO 0825 Warfarin Sodium 7.5 MG COUMADIN 1700 ONE 02/15 1700 DC 02/15 PO 02/15 1701 1717 Vital Signs & I&O Last 24 Hrs of Vitals and I&O: Vital Signs Date Time Temp Pulse Resp B/P B/P Pulse O2 O2 Flow FiO2 Mean Ox Delivery Rate 02/16 0854 92 Nasal 2.0L Cannula 02/16 0825 78 120/60 02/16 0825 78 120/60 02/16 0825 78 120/60 02/16 0820 78 120/60 94 Nasal 3.0L Cannula 02/16 0800 94 Nasal 3.0L Cannula 02/16 0712 97.8 76 22 108/49 99 02/16 0300 93 Nasal 4.0L Cannula 02/16 0055 91 Nasal 3.0L Cannula 02/16 0000 94 Nasal 2.0L Cannula 02/15 2130 98.0 76 20 115/57 93 Nasal 4.0L Cannula 02/15 1949 92 Nasal 2.0L Cannula 02/15 1600 97 Nasal 2.0L Cannula 02/15 1558 92 Nasal 2.0L Cannula 02/15 1429 98.7 72 20 124/68 97 Room Air Intake & Output 02/16 1600 02/16 0800 02/16 0000 Intake Total 120 240 Output Total 625 Balance -625 120 240 Intake, Oral 120 240 Output, Urine 625 Patient 183 lb Weight Weight Bed scale Measurement Method Impression/Plan Impression/Plan Impression/Plan: General Appearance Alert, Oriented X3, Cooperative, Mild Distress Skin No Rashes Skin Temp/Moisture Exam: Warm/Dry Sepsis Skin Exam (color): Flushed HEENT Atraumatic, PERRLA Neck Supple Cardiovascular Regular Rate, Normal S1, Normal S2 Lungs decreased air entry B/L at lung bases; expiratory wheezes ++, diffuse rhochi apppreciated bilaterally Abdomen Normal Bowel Sounds, Soft, No Tenderness Extremities No Clubbing, No Cyanosis, Normal Pulses 72-year-old male with past medical history of atrial fibrillation, CHF, hypertension, hyperlipidemia, COPD on 2 L of oxygen at home, chronic eosinophilia, probable significant asthmatic component, GERD, history of pancreatitis, CAD, gout diabetes mellitus, tobacco use, presented with significant cough wheezing shortness of breath and hypoxemia with eosinophilia. IMPRESSION PT with sig Chronic copd on 2 litres, now with * Acute COPD exacerbation with yellow green sputum. * Has significant eosinophilia with prior rash. Patient needs outpatient evaluation by hematology probably * Probable asthmatic component with eosinophilia as well * Chronic kidney disease * IHD * DM * Pafib on warfarin / INR is low * Previous septic knee now on prophylactic antibiotic including Keflex and rifampin * Sig 12 def REC Change to po prednisone 50 mg daily from am Sputum culture REstart keflex tid (out pt abx for septic knee supp)l Continue warfarin give 10 mg today Needs outpatient workup for eosinophilia Give b12 1000 u sub cut today Start po b12 2000 units daily IF green sputum persists then obtain a culture and start on po moxi Continue other medications
[2018-02-16 14:39] VITALS: BP 112/55
[2018-02-16 22:02] VITALS: BP 148/60
[2018-02-17 06:08] VITALS: BP 126/70
--- NOTE | 2018-02-17 07:00 | PN- Housestaff ---
Subjective Follow-up For: COPD exacerbation Complaints: bad night of sleep Subjective: Patient seen and examined at bedside. Patient states he had a rough night of sleep after a better day of breathing yesterday. The patient is now on 2 L nasal cannula oxygen, which is home dose. Patient continues to use cough machine. Otherwise no complaints. Review of Systems Constitutional: Reports: no symptoms. EENTM: Reports: no symptoms. Cardiovascular: Reports: no symptoms. Respiratory: Reports: orthopnea, short of breath, sputum production, wheezing. Gastrointestinal: Reports: no symptoms. Genitourinary: Reports: no symptoms. Musculoskeletal: Reports: no symptoms. Skin: Reports: no symptoms. Objective Last 24 Hrs of Vital Signs/I&O Vital Signs Date Time Temp Pulse Resp B/P B/P Pulse O2 O2 Flow FiO2 Mean Ox Delivery Rate 02/17 1207 95 Nasal 2.0L Cannula 02/17 0859 74 152/66 02/17 0859 74 152/66 02/17 0858 74 152/66 02/17 0805 Nasal 2.0L Cannula 02/17 0608 98.4 79 20 126/70 93 02/17 0002 88 Nasal 2.0L Cannula 02/17 0000 91 Nasal 2.0L Cannula 02/16 2202 98.1 65 18 148/60 91 02/16 1951 94 Nasal 2.0L Cannula 02/16 1600 Nasal 2.0L Cannula 02/16 1544 95 Nasal 2.0L Cannula 02/16 1439 98.4 79 22 112/55 95 Nasal 2.0L Cannula Intake & Output 02/17 1600 02/17 0800 02/17 0000 Intake Total 450 Output Total 500 525 Balance -50 -525 Intake, Oral 450 Output, Urine 500 525 Physical Exam General Appearance: Alert, Oriented X3, Cooperative, No Acute Distress Skin: No Rashes, No Breakdown Skin Temp/Moisture Exam: Warm/Dry HEENT: Atraumatic, PERRLA, EOMI Neck: Supple, No JVD, No thryomegaly Lymphatic: Cervical nl Cardiovascular: Regular Rate, Normal S1, Normal S2, No Murmurs Lungs: inspiratory and expiratory wheezes, decreased breath sounds Abdomen: Soft, No Tenderness, No Hepatospenomegaly Neurological: Normal Speech, Strength at 5/5 X4 Ext, Normal Tone, Sensation Intact Extremities: No Clubbing, No Cyanosis, No Edema Vascular: Normal Pulses, Pulses Symmetrical Current Medications: Current Medications Sig/Luis Start time Last Medication Dose Route Stop Time Status Admin Acetaminophen 650 MG .STK-MED ONE 02/17 0424 DC PO 02/17 0425 Acetaminophen 650 MG Q6P PRN 02/14 0245 AC 02/17 PO 0426 Albuterol Sulfate 3 ML EVERY 4 HRS/AWAKE 02/14 1200 AC 02/17 INH 1202 Albuterol Sulfate 3 ML Q4P PRN 02/14 0115 AC 02/15 INH 1143 Albuterol Sulfate 2 PUF Q4-6 PRN PRN 02/13 2315 AC 02/16 INH 1842 Amiodarone HCl 200 MG DAILY 02/14 09 AC 02/17 PO 0859 Atorvastatin Calcium 40 MG 1700 02/14 1700 AC 02/16 PO 1709 Azithromycin 250 MG DAILY 02/15 0900 AC 02/17 PO 02/18 0901 0858 Cephalexin 500 MG TID 02/16 1400 AC 02/17 PO 0859 Cyanocobalamin 2,000 MCG DAILY 02/17 0900 AC 02/17 PO 0858 Cyanocobalamin 1,000 MCG ONCE ONE 02/16 1345 DC 02/16 SC 02/16 1346 1452 Lisinopril 10 MG DAILY 02/14 09 AC 02/17 PO 0859 Methylprednisolone 60 MG DAILY 02/14 09 DC 02/16 IV 02/25 0901 0826 Metoprolol Succinate 25 MG DAILY 02/14 0900 AC 02/17 PO 0858 Prednisone 50 MG DAILY 02/17 09 AC 02/17 PO 02/19 0901 0858 Rifampin 300 MG BID 02/14 0900 AC 02/17 PO 0858 Warfarin Sodium 10 MG COUMADIN 1700 02/17 1700 AC PO 02/17 2359 Warfarin Sodium 10 MG COUMADIN 1700 ONE 02/16 1700 DC 02/16 PO 02/16 1701 1709 Last 24 Hrs of Lab/Chacorta Results Last 24 Hrs of Labs/Mics: Laboratory Tests 02/17/18 0710: PT 14.0 H, INR 1.28 H Assessment/Plan Assessment: he patient is a 72yo gentleman with past medical history of Afib, CHF, gout, COPD 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 Will taper to 50mg PO steroids on 02/17 -On 2L at this time with sats 92-94% -TRC and Nebulizers, PRN -F/u blood cultures. If patient has green sputum will get sputum cultures -On azithromycin 250mg daily; day 3; had two days of Ceftriaxone (02/13 + 02/14) #Afib - stable -Received 10mg coumadin today, will recheck tomorrow morning -On amiodarone, metoprolol #B12 deficiency -Will recieve 1000U subq today; to be started on 2000U PO daily tomorrow (02/17) #Eosinophilia with rash -Needs outpatient workup for eosinophilia with hematology. Per patient has seen immunology, allergy, dermatology without resolution #Previous Septic Knee -On prophylactic abx; rifampin and keflex DVT ppx Heart healthy diet Patient is DNR/DNI Problem List: 1. COPD exacerbation 2. Subtherapeutic anticoagulation Pain Ratin Pain Location: none Pain Goal: Remain pain free Pain Plan: Tylenol as needed Tomorrow's Labs & Rationales: PTT, INR
--- NOTE | 2018-02-17 08:37 | PN- Pulmonary ---
Subjective HPI/Critical Care Issues: Patient feels markedly improved this morning. Shortness of breath is improved Objective Current Medications: Current Medications Sig/Luis Start time Last Medication Dose Route Stop Time Status Admin Acetaminophen 650 MG Q6P PRN 02/14 0245 AC 02/17 PO 0426 Albuterol Sulfate 3 ML EVERY 4 HRS/AWAKE 02/14 1200 AC 02/17 INH 0802 Albuterol Sulfate 3 ML Q4P PRN 02/14 0115 AC 02/15 INH 1143 Albuterol Sulfate 2 PUF Q4-6 PRN PRN 02/13 2315 AC 02/16 INH 1842 Amiodarone HCl 200 MG DAILY 02/14 0900 AC 02/16 PO 0825 Atorvastatin Calcium 40 MG 1700 02/14 1700 AC 02/16 PO 1709 Azithromycin 250 MG DAILY 02/15 0900 AC 02/16 PO 02/18 0901 0825 Cephalexin 500 MG TID 02/16 1400 AC 02/16 PO 2002 Cyanocobalamin 2,000 MCG DAILY 02/17 0900 AC PO Cyanocobalamin 1,000 MCG ONCE ONE 02/16 1345 DC 02/16 SC 02/16 1346 1452 Lisinopril 10 MG DAILY 02/14 0900 AC 02/16 PO 0825 Methylprednisolone 60 MG DAILY 02/14 0900 DC 02/16 IV 02/25 0901 0826 Metoprolol Succinate 25 MG DAILY 02/14 0900 AC 02/16 PO 0825 Prednisone 50 MG DAILY 02/17 0900 AC PO Rifampin 300 MG BID 02/14 0900 AC 02/16 PO 2002 Warfarin Sodium 10 MG COUMADIN 1700 ONE 02/16 1700 DC 02/16 PO 02/16 1701 1709 Vital Signs & I&O Last 24 Hrs of Vitals and I&O: Vital Signs Date Time Temp Pulse Resp B/P B/P Pulse O2 O2 Flow FiO2 Mean Ox Delivery Rate 02/17 0805 Nasal 2.0L Cannula 02/17 0608 98.4 79 20 126/70 93 02/17 0002 88 Nasal 2.0L Cannula 02/17 0000 91 Nasal 2.0L Cannula 02/16 2202 98.1 65 18 148/60 91 02/16 1951 94 Nasal 2.0L Cannula 02/16 1600 Nasal 2.0L Cannula 02/16 1544 95 Nasal 2.0L Cannula 02/16 1439 98.4 79 22 112/55 95 Nasal 2.0L Cannula 02/16 0854 92 Nasal 2.0L Cannula Intake & Output 02/17 1600 02/17 0800 02/17 0000 Intake Total 450 Output Total 500 525 Balance -50 -525 Intake, Oral 450 Output, Urine 500 525 Oxygen saturation 2 L 93% temperature shows diminished breath sounds are no wheezes cardiac exam shows regular S1 and S2 without murmurs Impression/Plan Impression/Plan Impression/Plan: 72-year-old with severe oxygen dependence admitted with exacerbation clinically improved Recommendations: Optimize INR. Continue baseline antibiotic regimen for chronic knee infection. Begin slow prednisone taper.
--- NOTE | 2018-02-17 11:00 | PN- Att Addend ---
Attending Addendum Attending Brief Note Events over the weekend noted. Patient stated that this was the worse he has been ever with difficulty breathing. It is a little better but still short of breath with little exertion. Appreciate pulmonary's input and recommendations Vital signs are stable no fever. Still decreased breath sounds. No edema no rashes at this time. INR against subtherapeutic, will address. Continue treatments as per pulmonary's recommendations. Intake & Output 02/17 1600 02/17 0400 02/16 1600 02/16 0400 02/15 1600 02/15 0400 Intake Total 450 534 292 6070 480 Output Total 516 357 1845 Balance -50 -525 -009 389 7633 480 Intake, IV 10 15 Intake, Oral 450 907 194 7311 480 Number 1 Bowel Movements Output, Urine [phone] Patient 183 lb 183 lb Weight Weight Bed scale Bed scale Measurement Method Current Medications Sig/Luis Start time Last Medication Dose Route Stop Time Status Admin Acetaminophen 650 MG Q6P PRN 02/14 0245 AC 02/17 PO 0426 Albuterol Sulfate 3 ML EVERY 4 HRS/AWAKE 02/14 1200 AC 02/17 INH 0802 Albuterol Sulfate 3 ML Q4P PRN 02/14 0115 AC 02/15 INH 1143 Albuterol Sulfate 2 PUF Q4-6 PRN PRN 02/13 2315 AC 02/16 INH 1842 Amiodarone HCl 200 MG DAILY 02/14 09 AC 02/17 PO 0859 Atorvastatin Calcium 40 MG 1700 02/14 1700 AC 02/16 PO 1709 Azithromycin 250 MG DAILY 02/15 09 AC 02/17 PO 02/18 0901 0858 Cephalexin 500 MG TID 02/16 1400 AC 02/17 PO 0859 Cyanocobalamin 2,000 MCG DAILY 02/17 0900 AC 02/17 PO 0858 Cyanocobalamin 1,000 MCG ONCE ONE 02/16 1345 DC 02/16 SC 02/16 1346 1452 Lisinopril 10 MG DAILY 02/14 09 AC 02/17 PO 0859 Methylprednisolone 60 MG DAILY 02/14 09 DC 02/16 IV 02/25 0901 0826 Metoprolol Succinate 25 MG DAILY 02/14 09 AC 02/17 PO 0858 Prednisone 50 MG DAILY 02/17 900 AC 02/17 PO 02/19 0901 0858 Rifampin 300 MG BID 02/14 0900 AC 02/17 PO 0858 Warfarin Sodium 10 MG COUMADIN 1700 02/17 1700 AC PO 02/17 2359 Warfarin Sodium 10 MG COUMADIN 1700 ONE 02/16 1700 DC 02/16 PO 02/16 1701 1709 Laboratory Tests 02/17/18 0710: PT 14.0 H, INR 1.28 H 02/16/18 0710: PT 14.2 H, INR 1.30 H 02/15/18 0922: PT 16.0 H, INR 1.46 H 02/15/18 0709: Anion Gap 10, Estimated GFR 50 L, BUN/Creatinine Ratio 25.0, Total Bilirubin 0.2, Direct Bilirubin 0.2, AST 19, ALT 27, Alkaline Phosphatase 46, Total Protein 6.1 L, Albumin 3.7, Vitamin B12 288, TSH 4.570 H, Free T4 1.82, Total T3 0.97, Digoxin 0.5 L Vital Signs Date Time Temp Pulse Resp B/P B/P Pulse O2 O2 Flow FiO2 Mean Ox Delivery Rate 02/17 0859 74 152/66 02/17 0859 74 152/66 02/17 0858 74 152/66 02/17 0805 Nasal 2.0L Cannula 02/17 0608 98.4 79 20 126/70 93 02/17 0002 88 Nasal 2.0L Cannula 02/17 0000 91 Nasal 2.0L Cannula 02/16 2202 98.1 65 18 148/60 91 02/16 1951 94 Nasal 2.0L Cannula 02/16 1600 Nasal 2.0L Cannula 02/16 1544 95 Nasal 2.0L Cannula 02/16 1439 98.4 79 22 112/55 95 Nasal 2.0L Cannula
[2018-02-17 13:50] VITALS: BP 128/99
[2018-02-17 22:21] VITALS: BP 130/70
[2018-02-18 06:51] VITALS: BP 132/52; BP 140/52
--- NOTE | 2018-02-18 06:52 | PN- Housestaff ---
Subjective Follow-up For: COPD exacerbation Complaints: continued shortness of breath and cough Subjective: Patient seen and examined at the bedside. Patient again claims that he had a rough night, needing multiple TRC nebulizer treatments over the course of the evening. This morning, feels that he is breathing. Desires to know plan according to pulmonology. Review of Systems Constitutional: Reports: no symptoms. EENTM: Reports: no symptoms. Cardiovascular: Reports: no symptoms. Respiratory: Reports: cough, short of breath, sputum production, wheezing. Gastrointestinal: Reports: no symptoms. Genitourinary: Reports: no symptoms. Musculoskeletal: Reports: no symptoms. Skin: Reports: no symptoms. Neurological/Psychological: Reports: no symptoms. Objective Last 24 Hrs of Vital Signs/I&O Vital Signs Date Time Temp Pulse Resp B/P B/P Pulse O2 O2 Flow FiO2 Mean Ox Delivery Rate 02/18 0945 73 148/50 02/18 0945 73 148/50 02/18 0944 73 148/50 02/18 0651 99.2 79 20 140/52 80 02/18 0128 96 Nasal 2.0L Cannula 02/18 0030 95 Nasal 2.0L Cannula 02/17 2221 97.8 76 20 130/70 92 Nasal 2.0L Cannula 02/17 1629 97 Nasal 2.0L Cannula 02/17 1350 98.5 74 18 128/99 95 Nasal 2.0L Cannula 02/17 1207 95 Nasal 2.0L Cannula Intake & Output 02/18 1600 02/18 0800 02/18 0000 Intake Total 480 Output Total 200 Balance -200 480 Intake, Oral 480 Output, Urine 200 Patient 186 lb Weight Physical Exam General Appearance: Alert, Oriented X3, Cooperative, Moderate Distress Skin: No Rashes, No Breakdown Skin Temp/Moisture Exam: Warm/Dry HEENT: Atraumatic, PERRLA, EOMI, voice changed to more raspy, likely result of COPD exacerbation Neck: Supple, No JVD, No thryomegaly Lymphatic: Axillary nl, Cervical nl Cardiovascular: Regular Rate, Normal S1, Normal S2, No Murmurs Lungs: decreased air movement; inspiratory/expiratory wheeze heard on left middle and lower lobes Abdomen: Soft, No Tenderness, No Hepatospenomegaly Neurological: Normal Speech, Strength at 5/5 X4 Ext, Normal Tone, Sensation Intact Extremities: No Clubbing, No Cyanosis, No Edema Vascular: Normal Pulses, Pulses Symmetrical Current Medications: Current Medications Sig/Luis Start time Last Medication Dose Route Stop Time Status Admin Acetaminophen 650 MG .STK-MED ONE 02/17 2354 DC PO 02/17 2355 Acetaminophen 650 MG .STK-MED ONE 02/17 1523 DC PO 02/17 1524 Acetaminophen 650 MG Q6P PRN 02/14 0245 AC 02/18 PO 0540 Albuterol Sulfate 3 ML EVERY 4 HRS/AWAKE 02/14 1200 AC 02/18 INH 0954 Albuterol Sulfate 3 ML Q4P PRN 02/14 0115 AC 02/15 INH 1143 Albuterol Sulfate 2 PUF Q4-6 PRN PRN 02/13 2315 AC 02/18 INH 0955 Amiodarone HCl 200 MG DAILY 02/14 0900 AC 02/18 PO 0944 Atorvastatin Calcium 40 MG 1700 02/14 1700 AC 02/17 PO 1815 Azithromycin 250 MG DAILY 02/15 0900 DC 02/18 PO 02/18 0901 0945 Cephalexin 500 MG TID 02/16 1400 AC 02/18 PO 0944 Cyanocobalamin 2,000 MCG DAILY 02/17 0900 AC 02/18 PO 0945 Lisinopril 10 MG DAILY 02/14 0900 AC 02/18 PO 0945 Metoprolol Succinate 25 MG DAILY 02/14 0900 AC 02/18 PO 0945 Prednisone 50 MG DAILY 02/17 0900 AC 02/18 PO 02/19 0901 0945 Rifampin 300 MG BID 02/14 0900 AC 02/18 PO 0945 Warfarin Sodium 10 MG COUMADIN 1700 02/17 1700 DC 02/17 PO 02/17 2359 1815 Last 24 Hrs of Lab/Chacorta Results Last 24 Hrs of Labs/Mics: Laboratory Tests 02/18/18 0735: PT 13.8 H, INR 1.26 H, APTT 32 Assessment/Plan Assessment: The patient is a 72yo gentleman with past medical history of Afib, CHF, gout, 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 -On 2L at this time with sats 92-94% -TRC and Nebulizers, PRN -F/u blood cultures. If patient has green sputum will get sputum cultures -Azithromycin DC'ed; day 3; had two days of Ceftriaxone (02/13 + 02/14) -Appreciate pulm recs - continue treatment as current -patient would potentially benefit from short-term rehabilitation #Afib - stable -Received 10mg coumadin today, will recheck tomorrow morning -On amiodarone, metoprolol -Appreciate pulm recs - consider VQ scan if INR continues to not improve #B12 deficiency -Has received B12 injections during this admission #Previous Septic Knee -On prophylactic abx; rifampin and keflex -Appreciate pulmonary recommendations - continue therapy DVT ppx Heart healthy diet Patient is DNR/DNI Problem List: 1. COPD exacerbation 2. Subtherapeutic anticoagulation Pain Ratin Pain Location: none Pain Goal: Remain pain free Pain Plan: none in place Tomorrow's Labs & Rationales: INR??
--- NOTE | 2018-02-18 07:48 | Patient Discharge Instructions ---
Discharge Instructions General Discharge Information Special Instructions: - Please follow up with your primary care physician within 1-2 weeks of discharge. Inform your primary care physician of this admission to [facility]. - Continue your current medications per discharge instructions. - Please watch for these problems: Fever, Chills, Nausea, Vomiting, Shortness of Breath, Productive Cough, Chest Pain/Discomfort, Abdominal Pain, Active Bleeding or Bloody urine/stool. Diet Continue normal diet: Yes Activity Full Activity/No Limits: Yes Acute Coronary Syndrome Inclusion Criteria At DC or during hospital stay patient has or had the following: ACS DIAGNOSIS No Discharge Core Measures Meds if any: Prescribed or Continued at Discharge Meds if any: NOT Prescribed or Continued at Discharge Congestive Heart Failure Inclusion Criteria At DC or during hospital stay patient has or had the following: CHF DIAGNOSIS No Discharge Core Measures Meds if any: Prescribed or Continued at Discharge Meds if any: NOT Prescribed or Continued at Discharge Cerebrovascular accident Inclusion Criteria At DC or during hospital stay patient has or had the following: CVA/TIA Diagnosis No Discharge Core Measures Meds if any: Prescribed or Continued at Discharge Meds if any: NOT Prescribed or Continued at Discharge Venous thromboembolism Inclusion Criteria VTE Diagnosis No VTE Type NONE VTE Confirmed by (Test) NONE Discharge Core Measures - Per Current guidelines, there needs to be overlap - treatment for the first 5 days of Warfarin therapy. - If discharged on Warfarin prior to 5 days of - overlap therapy, the patient will need to be - assessed for post discharge needs including - *Post discharge parental anticoagulation - *Warfarin and/or parental anticoagulation education - *Follow up date to check INR post discharge At least 5 days overlap therapy as Inpatient No Meds if any: Prescribed or Continued at Discharge Note: Overlap Therapy is Warfarin and Anticoagulant Meds if any: NOT Prescribed or Continued at Discharge
[2018-02-18 08:39] LABS: PT 13.8 SEC (9.4-12.5); PTT 32 SEC (25-37)
--- NOTE | 2018-02-18 08:47 | PN- Pulmonary ---
Subjective HPI/Critical Care Issues: Patient continues to remain short of breath. Objective Current Medications: Current Medications Sig/Luis Start time Last Medication Dose Route Stop Time Status Admin Acetaminophen 650 MG .STK-MED ONE 02/17 2354 DC PO 02/17 2355 Acetaminophen 650 MG .STK-MED ONE 02/17 1523 DC PO 02/17 1524 Acetaminophen 650 MG Q6P PRN 02/14 0245 AC 02/18 PO 0540 Albuterol Sulfate 3 ML EVERY 4 HRS/AWAKE 02/14 1200 AC 02/18 INH 0615 Albuterol Sulfate 3 ML Q4P PRN 02/14 0115 AC 02/15 INH 1143 Albuterol Sulfate 2 PUF Q4-6 PRN PRN 02/13 2315 AC 02/16 INH 1842 Amiodarone HCl 200 MG DAILY 02/14 0900 AC 02/17 PO 0859 Atorvastatin Calcium 40 MG 1700 02/14 1700 AC 02/17 PO 1815 Azithromycin 250 MG DAILY 02/15 0900 AC 02/17 PO 02/18 0901 0858 Cephalexin 500 MG TID 02/16 1400 AC 02/17 PO 2106 Cyanocobalamin 2,000 MCG DAILY 02/17 0900 AC 02/17 PO 0858 Lisinopril 10 MG DAILY 02/14 0900 AC 02/17 PO 0859 Metoprolol Succinate 25 MG DAILY 02/14 0900 AC 02/17 PO 0858 Prednisone 50 MG DAILY 02/17 0900 AC 02/17 PO 02/19 0901 0858 Rifampin 300 MG BID 02/14 0900 AC 02/17 PO 2106 Warfarin Sodium 10 MG COUMADIN 1700 02/17 1700 DC 02/17 PO 02/17 2359 1815 Vital Signs & I&O Last 24 Hrs of Vitals and I&O: Vital Signs Date Time Temp Pulse Resp B/P B/P Pulse O2 O2 Flow FiO2 Mean Ox Delivery Rate 02/18 0651 99.2 79 20 140/52 80 02/18 0128 96 Nasal 2.0L Cannula 02/18 0030 95 Nasal 2.0L Cannula 02/17 2221 97.8 76 20 130/70 92 Nasal 2.0L Cannula 02/17 1629 97 Nasal 2.0L Cannula 02/17 1350 98.5 74 18 128/99 95 Nasal 2.0L Cannula 02/17 1207 95 Nasal 2.0L Cannula 02/17 0859 74 152/66 02/17 0859 74 152/66 02/17 0858 74 152/66 Intake & Output 02/18 1600 02/18 0800 02/18 0000 Intake Total 480 Output Total 200 Balance -200 480 Intake, Oral 480 Output, Urine 200 Patient 186 lb Weight Episode of desaturation noted exam for chest shows diminished breath sounds are no wheezes cardiac exam shows normal S1 and S2 there's no edema Impression/Plan Impression/Plan Impression/Plan: 72-year-old with severe COPD has had persistent dyspnea. His INR remained subtherapeutic. There is evidence of acute hypoxic respiratory failure Recommendations: Optimize INR. Continue baseline antibiotic regimen for chronic knee infection. Repeat oxygen saturations if they remain below baseline would consider VQ scan if you have suboptimal anticoagulation. Patient will potentially benefit from pulmonary short-term rehabilitation
--- NOTE | 2018-02-18 10:28 | PN- Att Addend ---
Attending Addendum Attending Brief Note Patient states he is still short of breath with little exertion. Receiving a respiratory treatment at this point. His vital signs are stable no fever. No major changes on physical examination. His O2 sats are still on the low side. Appreciate pulmonary's input and recommendations patient might need a ventilation perfusion lung scan. Patient also might need pulmonary rehab. Intake & Output 02/18 1600 02/18 0400 02/17 1600 02/17 0400 02/16 1600 02/16 0400 Intake Total 480 850 850 240 Output Total 200 576 968 7466 Balance -200 480 -50 -525 -225 240 Intake, IV 10 Intake, Oral 480 850 840 240 Output, Urine 200 820 440 6258 Patient 186 lb 183 lb Weight Weight Bed scale Measurement Method Current Medications Sig/Luis Start time Last Medication Dose Route Stop Time Status Admin Acetaminophen 650 MG .STK-MED ONE 02/17 2354 DC PO 02/17 235 Acetaminophen 650 MG .STK-MED ONE 02/17 1523 DC PO 02/17 1524 Acetaminophen 650 MG Q6P PRN 02/14 0245 AC 02/18 PO 0540 Albuterol Sulfate 3 ML EVERY 4 HRS/AWAKE 02/14 1200 AC 02/18 INH 0954 Albuterol Sulfate 3 ML Q4P PRN 02/14 0115 AC 02/15 INH 1143 Albuterol Sulfate 2 PUF Q4-6 PRN PRN 02/13 2315 AC 02/18 INH 0955 Amiodarone HCl 200 MG DAILY 02/14 900 AC 02/18 PO 0944 Atorvastatin Calcium 40 MG 02/14 1700 AC 02/17 PO 1815 Azithromycin 250 MG DAILY 02/15 09 DC 02/18 PO 02/18 0901 0945 Cephalexin 500 MG TID 02/16 1400 AC 02/18 PO 0944 Cyanocobalamin 2,000 MCG DAILY 02/17 900 AC 02/18 PO 0945 Lisinopril 10 MG DAILY 02/14 900 AC 02/18 PO 0945 Metoprolol Succinate 25 MG DAILY 02/14 900 AC 02/18 PO 0945 Prednisone 50 MG DAILY 02/17 900 AC 02/18 PO 02/19 0901 0945 Rifampin 300 MG BID 02/14 900 AC 02/18 PO 0945 Warfarin Sodium 10 MG COUMADIN 1700 02/17 1700 DC 02/17 PO 02/17 2359 1815 Laboratory Tests 02/18/18 0735: PT 13.8 H, INR 1.26 H, APTT 32 02/17/18 0710: PT 14.0 H, INR 1.28 H 02/16/18 0710: PT 14.2 H, INR 1.30 H Vital Signs Date Time Temp Pulse Resp B/P B/P Pulse O2 O2 Flow FiO2 Mean Ox Delivery Rate 02/18 1001 93 Nasal 2.0L Cannula 02/18 0945 73 148/50 02/18 0945 73 148/50 02/18 0944 73 148/50 02/18 0651 99.2 79 20 140/52 80 02/18 0128 96 Nasal 2.0L Cannula 02/18 0030 95 Nasal 2.0L Cannula 02/17 2221 97.8 76 20 130/70 92 Nasal 2.0L Cannula 02/17 1629 97 Nasal 2.0L Cannula 02/17 1350 98.5 74 18 128/99 95 Nasal 2.0L Cannula 02/17 1207 95 Nasal 2.0L Cannula INR still subtherapeutic will adjust medication.
--- NOTE | 2018-02-18 12:20 | RADIOLOGY REPORT ---
EXAMINATION: XR PORTABLE CHEST CLINICAL INFORMATION: Intermittent desaturation. Rule out acute process. Compared with previous. COPD exacerbation on prednisone now. COMPARISON: Chest x-ray dated 02/13/2018, 12/11/2017 and 08/20/2017. TECHNIQUE: Portable AP semierect view of the chest was obtained on 2 images. FINDINGS: The cardiomediastinal silhouette is within normal limits in size. Calcification and ectasia of the aorta is seen. There is slight fullness of the left pulmonary artery, likely accentuated by slight patient rotation and scoliosis. Appearance is similar to prior exams. Lungs bilaterally are symmetrically hyperinflated and demonstrate slight thickening of the central airways, consistent with patient's history of COPD. Mild right greater than left apical pleural-based thickening and reticulation is seen, consistent with scarring. No focal consolidation, effusion or pneumothorax is seen. Convex right thoracic scoliosis and multilevel mild degenerative changes are seen throughout the spine. Calcification is seen adjacent to the greater tuberosity of the right humeral head, consistent with calcific tendinitis. IMPRESSION: 1. Findings consistent with obstructive lung disease. No new superimposed acute process is noted. 2. Ectatic atherosclerotic aorta.
--- NOTE | 2018-02-18 15:54 | NUCLEAR MEDICINE REPORT ---
EXAMINATION: PULMONARY VENTILATION PERFUSION STUDY CLINICAL INFORMATION: Intermittent oxygen desaturation was suboptimal no other. COMPARISON: The previous lung scan dated 02/12/2014 is available for comparison. A radiograph of the chest dated 02/18/2018, the same date as this lung scan, is available for comparison. TECHNIQUE: Serial gamma scintillation camera images were obtained over the posterior chest during the single breath, equilibrium rebreathing and washout of 9.0 mCi Xe 133 gas. The patient then received 4.1 mCi Tc-99m MAA intravenously and a 6-view perfusion study was performed. FINDINGS: Ventilation images: On the single breath and equilibrium images there is homogeneous distribution of gas bilaterally. During the washout phase there is mild diffuse retention bilaterally. Perfusion images: No segmental perfusion defects are present. There is mild heterogeneous of activity bilaterally. There are no focal anatomic appearing perfusion defects present. Compared to the previous scan dated 02/12/2014, there has not been a significant change. IMPRESSION: Very low probability of pulmonary embolism. Delayed washout present on the ventilation images is evidence of obstructive airway disease.
[2018-02-18 21:42] VITALS: BP 142/70
[2018-02-19 06:32] VITALS: BP 133/65
--- NOTE | 2018-02-19 07:06 | PN- Housestaff ---
Subjective Follow-up For: COPD exacerbation Subjective: Patient seen and examine at the bedside. Patient claims he continues to have bad nights while in the hospital. Still having shortness of breath over night and into the morning. Review of Systems Constitutional: Reports: no symptoms. Respiratory: Reports: cough, short of breath, sputum production. Objective Last 24 Hrs of Vital Signs/I&O Vital Signs Date Time Temp Pulse Resp B/P B/P Pulse O2 O2 Flow FiO2 Mean Ox Delivery Rate 02/19 1632 92 Nasal 3.0L Cannula 02/19 1458 Nasal 2.0L Cannula 02/19 1420 98.2 74 18 114/64 91 Nasal 2.0L Cannula 02/19 0932 90 135/65 02/19 0932 90 135/65 02/19 0932 90 135/65 02/19 0800 95 Nasal 2.0L Cannula 02/19 0745 90 Nasal 2.0L Cannula 02/19 0632 98.2 90 22 133/65 93 02/19 0248 92 Nasal 2.0L Cannula 02/19 0000 Nasal 2.0L Cannula 02/18 2142 98.1 73 18 142/70 92 Nasal 2.0L Cannula Intake & Output 02/19 1600 02/19 0800 02/19 0000 Intake Total 740 120 240 Output Total Balance 740 120 240 Intake, Oral 740 120 240 Number 0 Bowel Movements Patient 178 lb Weight Physical Exam General Appearance: Alert, Oriented X3, Cooperative, Mild Distress Skin: No Rashes, No Breakdown Skin Temp/Moisture Exam: Warm/Dry HEENT: Atraumatic, PERRLA, EOMI Neck: Supple, No JVD, No thryomegaly Lymphatic: Cervical nl Cardiovascular: Regular Rate, Normal S1, Normal S2, No Murmurs Lungs: diffuse wheezes, inspiratory and expiratory; decreased air movement Abdomen: Normal Bowel Sounds, Soft, No Tenderness, No Hepatospenomegaly Neurological: Normal Speech, Strength at 5/5 X4 Ext, Normal Tone, Sensation Intact, voice is hoarse again Extremities: No Clubbing, No Cyanosis, No Edema, Normal Pulses Vascular: Normal Pulses, Pulses Symmetrical Current Medications: Current Medications Sig/Luis Start time Last Medication Dose Route Stop Time Status Admin Acetaminophen 650 MG .STK-MED ONE 02/19 1020 DC PO 02/19 1021 Acetaminophen 650 MG .STK-MED ONE 02/19 0250 DC PO 02/19 0251 Acetaminophen 650 MG Q6P PRN 02/14 0245 AC 02/19 PO 1021 Albuterol Sulfate 3 ML EVERY 4 HRS/AWAKE 02/14 1200 AC 02/19 INH 1631 Albuterol Sulfate 3 ML Q4P PRN 02/14 0115 AC 02/15 INH 1143 Albuterol Sulfate 2 PUF Q4-6 PRN PRN 02/13 2315 AC 02/18 INH 0955 Alprazolam 0.25 MG TID 02/19 1400 DC 02/19 PO 02/26 1359 1321 Alprazolam 0.25 MG TIDPRN PRN 02/19 1330 AC PO 02/26 1323 Amiodarone HCl 200 MG DAILY 02/14 0900 AC 02/19 PO 0932 Atorvastatin Calcium 40 MG 1700 02/14 1700 AC 02/19 PO 1658 Cephalexin 500 MG TID 02/16 1400 AC 02/19 PO 1319 Cyanocobalamin 2,000 MCG DAILY 02/17 0900 AC 02/19 PO 0933 Lisinopril 10 MG DAILY 02/14 0900 AC 02/19 PO 0932 Metoprolol Succinate 25 MG DAILY 02/14 0900 AC 02/19 PO 0932 Prednisone 40 MG DAILY 02/20 09 AC PO 02/22 0901 Prednisone 50 MG DAILY 02/17 0900 DC 02/19 PO 02/19 0901 0933 Rifampin 300 MG BID 02/14 0900 AC 02/19 PO 0932 Warfarin Sodium 15 MG COUMADIN 1700 ONE 02/19 1700 DC 02/19 PO 02/19 1701 1658 Last 24 Hrs of Lab/Chacorta Results Last 24 Hrs of Labs/Mics: Laboratory Tests 02/19/18 0655: PT 12.9 H, INR 1.18 H, APTT 31 Assessment/Plan Assessment: The patient is a 72yo gentleman with past medical history of Afib, CHF, gout, 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 -On 2L at this time with sats 92-94% -TRC and Nebulizers, PRN -Xanax prescribed following respiratory recs; appreciated -No growth on blood cultures after 5 days -Azithromycin and ceftriaxone DC'ed; continued use of Cephalexin for knee issue (see below) -Appreciate pulm recs - continue treatment as current -patient would potentially benefit from short-term rehabilitation -VQ scan showed no sign of PE #Afib - stable -Received 15mg coumadin today, will recheck tomorrow morning -On amiodarone, metoprolol #B12 deficiency -Has received B12 injections during this admission #Previous Septic Knee -On prophylactic abx; rifampin and keflex -Appreciate pulmonary recommendations - continue therapy DVT ppx Heart healthy diet Patient is DNR/DNI Problem List: 1. Acute exacerbation of chronic obstructive airways disease 2. Septic arthritis Pain Ratin Pain Location: none Pain Goal: Remain pain free Pain Plan: tylenol Tomorrow's Labs & Rationales: INR tomorrow, check for therapeutic level
[2018-02-19 08:23] LABS: PT 12.9 SEC (9.4-12.5); PTT 31 SEC (25-37)
--- NOTE | 2018-02-19 08:49 | PN- Pulmonary ---
Subjective HPI/Critical Care Issues: Patient continues to have increased shortness breath at night. Ventilation perfusion scan unrevealing Objective Current Medications: Current Medications Sig/Luis Start time Last Medication Dose Route Stop Time Status Admin Acetaminophen 650 MG Q6P PRN 02/14 0245 AC 02/19 PO 0252 Albuterol Sulfate 3 ML EVERY 4 HRS/AWAKE 02/14 1200 AC 02/19 INH 0744 Albuterol Sulfate 3 ML Q4P PRN 02/14 0115 AC 02/15 INH 1143 Albuterol Sulfate 2 PUF Q4-6 PRN PRN 02/13 2315 AC 02/18 INH 0955 Amiodarone HCl 200 MG DAILY 02/14 0900 AC 02/18 PO 0944 Atorvastatin Calcium 40 MG 1700 02/14 1700 AC 02/18 PO 1651 Azithromycin 250 MG DAILY 02/15 0900 DC 02/18 PO 02/18 0901 0945 Cephalexin 500 MG TID 02/16 1400 AC 02/18 PO 2031 Cyanocobalamin 2,000 MCG DAILY 02/17 0900 AC 02/18 PO 0945 Lisinopril 10 MG DAILY 02/14 0900 AC 02/18 PO 0945 Metoprolol Succinate 25 MG DAILY 02/14 0900 AC 02/18 PO 0945 Prednisone 50 MG DAILY 02/17 0900 AC 02/18 PO 02/19 0901 0945 Rifampin 300 MG BID 02/14 0900 AC 02/18 PO 2031 Warfarin Sodium 2 MG COUMADIN 1700 ONE 02/18 1800 DC 02/18 PO 02/18 1801 1845 Warfarin Sodium 10 MG COUMADIN 1700 02/18 1700 DC 02/18 PO 02/18 2359 1651 Warfarin Sodium 12 MG COUMADIN 1700 02/18 1700 CAN PO 02/18 1800 Vital Signs & I&O Last 24 Hrs of Vitals and I&O: Vital Signs Date Time Temp Pulse Resp B/P B/P Pulse O2 O2 Flow FiO2 Mean Ox Delivery Rate 02/19 0745 90 Nasal 2.0L Cannula 02/19 0632 98.2 90 22 133/65 93 02/19 0248 92 Nasal 2.0L Cannula 02/19 0000 Nasal 2.0L Cannula 02/18 2142 98.1 73 18 142/70 92 Nasal 2.0L Cannula 02/18 1820 96 Nasal 2.0L Cannula 02/18 1001 93 Nasal 2.0L Cannula 02/18 0945 73 148/50 02/18 0945 73 148/50 02/18 0944 73 148/50 Intake & Output 02/19 1600 02/19 0800 02/19 0000 Intake Total 120 240 Output Total Balance 120 240 Intake, Oral 120 240 Patient 178 lb Weight Oxygen saturation 2 L 90% exam of his chest shows diminished breath sounds are no wheezes cardiac exam shows a regular S1 and S2 without murmurs Impression/Plan Impression/Plan Impression/Plan: 72-year-old with severe end-stage COPD chronic hypoxic history failure continues to have intermittent shortness of breath Recommendations: Optimize INR. Continue baseline antibiotic regimen for chronic knee infection. Increase FiO2 to 3 L. Await case Management input regarding pulmonary short- term rehabilitation
--- NOTE | 2018-02-19 10:25 | PN- Att Addend ---
Attending Addendum Attending Brief Note Patient stated that he had a good day yesterday but had a horrible night now laying in bed comfortably. Vital signs are stable no fever. No major changes on physical examination. INR 1.18 this morning despite increasing the Coumadin will adjust medication again today. Appreciate pulmonary's input and recommendations. Need to continue observation today and start disposition plans for short-term rehab. Intake & Output 02/19 040 Intake Total 120 240 510 480 850 Output Total 500 900 525 Balance 120 240 10 480 -50 -525 Intake, IV 10 Intake, Oral 120 240 500 480 850 Number 1 Bowel Movements Output, Urine 500 900 525 Patient 178 lb 183 lb Weight Laboratory Tests 02/19/18 0655: PT 12.9 H, INR 1.18 H, APTT 31 02/18/18 0735: PT 13.8 H, INR 1.26 H, APTT 32 02/17/18 0710: PT 14.0 H, INR 1.28 H Vital Signs Date Time Temp Pulse Resp B/P B/P Pulse O2 O2 Flow FiO2 Mean Ox Delivery Rate 02/19 0932 90 135/65 02/19 0932 90 135/65 02/19 0932 90 135/65 02/19 0800 95 Nasal 2.0L Cannula 02/19 0745 90 Nasal 2.0L Cannula 02/19 0632 98.2 90 22 133/65 93 02/19 0248 92 Nasal 2.0L Cannula 02/19 0000 Nasal 2.0L Cannula 02/18 2142 98.1 73 18 142/70 92 Nasal 2.0L Cannula 02/18 1820 96 Nasal 2.0L Cannula
[2018-02-19 14:20] VITALS: BP 114/64
[2018-02-19 22:07] VITALS: BP 134/62
[2018-02-20 06:07] VITALS: BP 156/70
--- NOTE | 2018-02-20 07:11 | PN- Housestaff ---
Subjective Follow-up For: COPD exacerbation with hypoxic hypercarbic respiratory failure Complaints: shortness of breath, endorses hallucinations Subjective: Patient seen and examined at the bedside. Patient acute distress, states related to difficulty breathing. States that nebulizer treatment does not last very long after he receives it. States that he has not been using his rescue albuterol. Overall, did not sleep well overnight, and having a difficult morning. Family plans to come by and see later today. Review of Systems Constitutional: Reports: no symptoms. Respiratory: Reports: cough, short of breath, sputum production, wheezing. Gastrointestinal: Reports: no symptoms. Genitourinary: Reports: no symptoms. Musculoskeletal: Reports: no symptoms. Skin: Reports: no symptoms. Neurological/Psychological: Reports: no symptoms. Hematologic/Endocrine: Reports: no symptoms. Objective Last 24 Hrs of Vital Signs/I&O Vital Signs Date Time Temp Pulse Resp B/P B/P Pulse O2 O2 Flow FiO2 Mean Ox Delivery Rate 02/20 1436 98.1 75 26 142/90 91 Room Air 02/20 1250 93 Nasal 2.0L Cannula 02/20 0959 86 138/50 02/20 0959 86 138/50 02/20 0959 86 138/50 02/20 0800 91 Nasal 2.0L Cannula 02/20 0740 93 Nasal 2.0L Cannula 02/20 0607 98.9 83 18 156/70 90 Nasal 2.0L Cannula 02/20 0235 89 Nasal 2.0L Cannula 02/20 0000 Nasal 2.0L Cannula 02/19 2207 97.5 70 18 134/62 93 Nasal 2.0L Cannula 02/19 1632 92 Nasal 3.0L Cannula Intake & Output 02/20 1600 02/20 0800 02/20 0000 Intake Total 400 120 240 Output Total 200 Balance 200 120 240 Intake, Oral 400 120 240 Number 1 Bowel Movements Output, Urine 200 Patient 177 lb Weight Physical Exam General Appearance: Alert, Oriented X3, Cooperative, Severe Distress Skin: No Rashes, No Breakdown, No Significant Lesion Skin Temp/Moisture Exam: Warm/Dry HEENT: Atraumatic, PERRLA, EOMI, Mucous Membr. moist/pink Neck: Supple, No JVD, No thryomegaly Lymphatic: Axillary nl, Cervical nl Cardiovascular: Regular Rate, Normal S1, Normal S2, No Murmurs, Gallops, Rubs Lungs: bilateral diffuse wheezing, inspiratory and expiratory wheezes, decreased air movement, use of accessory muscles for respiration Abdomen: Soft, No Tenderness, No Hepatospenomegaly, No Masses Neurological: Normal Speech, Strength at 5/5 X4 Ext, Normal Tone, Sensation Intact Extremities: No Clubbing, No Cyanosis, No Edema, Normal Pulses Vascular: Normal Pulses, Pulses Symmetrical Current Medications: Current Medications Sig/Luis Start time Last Medication Dose Route Stop Time Status Admin Acetaminophen 650 MG .STK-MED ONE 02/20 0707 DC PO 02/20 0708 Acetaminophen 650 MG Q6P PRN 02/14 0245 AC 02/20 PO 0709 Albuterol Sulfate 3 ML EVERY 4 HRS/AWAKE 02/14 1200 AC 02/20 INH 1248 Albuterol Sulfate 3 ML Q4P PRN 02/14 0115 AC 02/15 INH 1143 Albuterol Sulfate 2 PUF Q4-6 PRN PRN 02/13 2315 AC 02/18 INH 0955 Alprazolam 0.25 MG TIDPRN PRN 02/19 1330 DC 02/19 PO 02/26 1323 2024 Amiodarone HCl 200 MG DAILY 02/14 09 AC 02/20 PO 0959 Atorvastatin Calcium 40 MG 1700 02/14 1700 AC 02/19 PO 1658 Cephalexin 500 MG TID 02/16 1400 AC 02/20 PO 1323 Cyanocobalamin 2,000 MCG DAILY 02/17 09 AC 02/20 PO 0959 Ibuprofen 400 MG ONCE ONE 02/20 1130 DC 02/20 PO 02/20 1131 1137 Lisinopril 10 MG DAILY 02/14 09 AC 02/20 PO 0959 Metoprolol Succinate 25 MG DAILY 02/14 0900 AC 02/20 PO 0959 Morphine Sulfate 2.5 MG Q4 PRN 02/20 1300 AC 02/20 PO 1323 Prednisone 40 MG DAILY 02/20 09 AC 02/20 PO 02/22 0901 0959 Rifampin 300 MG BID 02/14 09 AC 02/20 PO 0959 Warfarin Sodium 15 MG COUMADIN 1700 ONE 02/20 1700 AC PO 02/20 1701 Warfarin Sodium 15 MG COUMADIN 1700 ONE 02/19 1700 DC 02/19 PO 02/19 1701 1658 Last 24 Hrs of Lab/[place]ac[place] Results Last 24 Hrs of Labs/Mics: Laboratory Tests 02/20/18 0820: pH 7.36, pCO2 56 H, pO2 62 L, HCO3 31 H, ABG O2 Sat (Measured) 89.0 L, Carboxyhemoglobin 0.7 L, O2 Concentration % 2L, O2 Delivery Method NC, Phlebotomy Draw Site RIGHT RADIAL 02/20/18 0623: PT 13.2 H, INR 1.21 H Assessment/Plan Assessment: The patient is a 72yo gentleman with past medical history of Afib, CHF, gout, 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 -On 2L at this time with sats 92-94% -TRC and Nebulizers, PRN -No growth on blood cultures after 5 days -Azithromycin and ceftriaxone DC'ed; continued use of Cephalexin for knee issue (see below) -Appreciate pulm recs - continue treatment as current -patient would potentially benefit from short-term rehabilitation -VQ scan showed no sign of PE -palliative care consult called; appreciate recs -started patient on mirtazipine 15mg at bedtime -2.5 mg morphine q4 prn for agitation/feeling like can't breathe -dc'ed xanax as the patient did not like it #Afib - stable -Received 15mg coumadin today, will recheck tomorrow morning -On amiodarone, metoprolol #B12 deficiency -Has received B12 injections during this admission #Previous Septic Knee -On prophylactic abx; rifampin and keflex -Appreciate pulmonary recommendations - continue therapy DVT ppx Heart healthy diet Patient is DNR/DNI Problem List: 1. Acute exacerbation of chronic obstructive airways disease 2. Subtherapeutic anticoagulation 3. Paroxysmal A-fib Pain Ratin Pain Location: none Pain Goal: Remain pain free Pain Plan: tylenol Tomorrow's Labs & Rationales: cbc, bep, inr
--- NOTE | 2018-02-20 07:43 | Discharge Summary ---
Visit Information Visit Dates Admission Date: 02/13/18 Hospital Course Course Attending Physician: John MENON,Red Primary Care Physician: John MENON,Red [facility] Course: Mr. Welch is a 72yo gentleman with past medical history of Afib, CHF, gout, COPD x 10 years which is steroid dependent and currently on 2L home oxygen, presents to the ER with acute exacerbation of his symtoms this morning. He reports producing greenish sputum but has difficulty in bringing it up, even after using Mucinex. He does admit to feeling a tightness in his chest which he attributes to excessive coughing. His physical examination is significant for decresed air entry at B/L lung bases, with expiratory wheezes and diffuse rhonchi. His EKG in the ER was essentially normal. The patient is notably on Coumadin along with Rifampin and Keflex. Patient was admitted to general medicine for following management Problem List #Acute exacerbation of COPD w/ acute hypercarbic hypoxic resp failure #Subtherapeutic INR #PMH of Afib on Coumadin, Hx of HFrEF now w/ recovered LV EF, Chronic knee infection on ABx, COPD On admission, patient was started on IV solumedrol, TRC/nebulizer and continued home meds, and dosing coumadin dailly for subtherapeutic INR, along with continued ABx for chronic knee infection. Pulm recommended slow tapering of prednisone over hospital course. Patient's clinical improvement was not remarkable despite treatment, however not in acute exacerbation phase as hospital course proceeded. Lung V/Q scan had very low risk for PE. Repeated ABG showed 7.36/56/62/31/89% on 2LNC. Patient was then bumped back to 3LNC. Pulmonary rehab was recommended to discharge. DVT PPX Coumadin + ALPS Heart Healthy Diet DNR/DNI Allergies: Coded Allergies: NO KNOWN ALLERGIES (08/21/15) Pertinent Lab Results: SERVICE DATE: 02/13/18-1856 EXAM TYPE: RAD - XRY-CHEST XRAY, TWO VIEWS IMPRESSION: No acute abnormality of the chest. SERVICE DATE: 02/18/18-1034 EXAM TYPE: RAD - XRY-PORTABLE CHEST XRAY IMPRESSION: 1. Findings consistent with obstructive lung disease. No new superimposed acute process is noted. 2. Ectatic atherosclerotic aorta. SERVICE DATE: 02/18/18-6740 EXAM TYPE: NUC - LUNG SCAN (V/Q) IMPRESSION: Very low probability of pulmonary embolism. Delayed washout present on the ventilation images is evidence of obstructive airway disease. Disposition Summary Disposition Additional Diagnosis: as above Discharge Instructions General Discharge Information Code Status: Do Not Resucitate/Intubat Patient's Diet: as tolerated Patient's Activity: as tolerated Medications at Discharge Discharge Medications: Stop taking the following medications: Digoxin (Digoxin) 125 MCG TABLET ORAL DAILY Prednisone (Prednisone) 10 MG TABLET ORAL TWICE DAILY Warfarin Sodium (Coumadin) 5 MG TABLET ORAL DAILY Continue taking these medications: Amiodarone (Cordarone) 200 MG TABLET 1 Tablet ORAL DAILY Comments: Last Taken: 12/18/17 Time: 10:00 AM Pantoprazole Sodium (Protonix) 20 MG TABLET.DR 2 Tablet ORAL DAILY Qty = 30 Comments: PRILOSEC GIVEN WHILE IN HOSPITAL Last Taken: 10/30/17 Time: 5:45 am Lisinopril (Lisinopril) 10 MG TABLET 1 Tablet ORAL DAILY Comments: Last Taken: 12/18/17 Time: 10:00 AM Atorvastatin Calcium (Atorvastatin Calcium) 40 MG TABLET 1 Tablet ORAL DAILY Comments: Last Taken: 12/17/17 Time: 5:00 PM Rifampin (Rifadin) 300 MG CAPSULE 1 Capsule ORAL TWICE DAILY Qty = 76 Instructions: Please follow up infectious disease Dr. Lui for further antibiotic course. His contact # [phone] Comments: Last Taken: 12/18/17 Time: 10:00 AM Cholecalciferol (Vitamin D3) (Vitamin D) 1,000 UNIT TABLET 1 Tablet ORAL DAILY Qty = 60 Comments: NOT GIVEN IN HOSPITAL Tiotropium [place] (Spiriva) 18 MCG CAP.W.DEV 1 Capsule Inhale through mouth DAILY Qty = 30 Comments: Last Taken: 12/18/17 Time: 10:00 AM Albuterol Sulfate (Proair Hfa) 90 MCG HFA.AER.AD 2 Puff Inhale through mouth EVERY 4-6 HOURS NEEDED as needed for Shortness of breath Qty = 2 Comments: Last Taken: 12/16/17 Time: 4:00 AM Albuterol Sulfate (Albuterol Sulfate) 2.5 MG/3 ML (0.083 %) VIAL.NEB 1 Vial Inhale Solution EVERY 4 HOURS NEEDED as needed for Shortness of breath Qty = 30 Comments: Last Taken: 12/18/17 Time: 1:00 PM Fluticasone/Salmeterol (Advair 250-50 Diskus) 250 MCG-50 MCG/DOSE BLST.W.DEV 1 Puff Inhale through mouth TWICE DAILY Qty = 60 Comments: PT RECEIVED SYMBICORT IN HOSPITAL. Last Taken: 12/18/17 Time: 10:00 AM Metoprolol Succ XL (Toprol XL) 25 MG TAB 1 Tablet ORAL DAILY Comments: Last Taken: 12/18/17 Time: 10:00 AM Cephalexin (Keflex) 500 MG CAPSULE 1 Capsule ORAL THREE TIMES DAILY Comments: Last Taken: 12/18/17 Time: 2:00 PM Clobetasol Propionate (Clobetasol Propionate) 0.05 % SOLUTION 1 Application On the skin ONCE A WEEK Qty = 50 Comments: NOT GIVEN IN HOSPITAL Nystatin (Nyamyc) 100,000 UNIT/GRAM POWDER 1 Application On the skin as needed for GROIN Qty = 180 Comments: NOT GIVEN IN HOSPITAL Hydrocortisone (Hydrocortisone) 2.5 % CREAM..G. 1 Application On the skin As Directed as needed for SKIN Qty = 20 Instructions: apply to affected area(s) Comments: NOT GIVEN IN HOSPITAL Triamcinolone Acetonide (Triamcinolone Acetonide) 0.1 % CREAM..G. 1 Application On the skin As Directed as needed for SKIN Qty = 454 Comments: NOT GIVEN WHILE IN HOSPITAL Clobetasol Propionate (Clobetasol Propionate) 0.05 % CREAM..G. 1 Application On the skin As Directed Qty = 180 Instructions: apply to affected area(s) Comments: NOT GIVEN IN HOSPITAL Hydroxyzine Hydrochloride (Atarax) 25 MG TAB 1 Tablet ORAL TWICE DAILY as needed for Rash Qty = 10 Instructions: . Comments: NOT GIVEN IN HOSPITAL Warfarin Sodium (Coumadin) 10 MG TABLET 1 Tablet ORAL DAILY Copies To: John MENON,Red
[2018-02-20 08:23] LABS: PT 13.2 SEC (9.4-12.5)
--- NOTE | 2018-02-20 08:32 | PN- Pulmonary ---
Subjective HPI/Critical Care Issues: Patient was confused overnight and remains somewhat confused this morning. He continues to have significant shortness of breath Objective Current Medications: Current Medications Sig/Luis Start time Last Medication Dose Route Stop Time Status Admin Acetaminophen 650 MG .STK-MED ONE 02/19 1020 DC PO 02/19 1021 Acetaminophen 650 MG Q6P PRN 02/14 0245 AC 02/20 PO 0709 Albuterol Sulfate 3 ML EVERY 4 HRS/AWAKE 02/14 1200 AC 02/20 INH 0738 Albuterol Sulfate 3 ML Q4P PRN 02/14 0115 AC 02/15 INH 1143 Albuterol Sulfate 2 PUF Q4-6 PRN PRN 02/13 2315 AC 02/18 INH 0955 Alprazolam 0.25 MG TID 02/19 1400 DC 02/19 PO 02/26 1359 1321 Alprazolam 0.25 MG TIDPRN PRN 02/19 1330 AC 02/19 PO 02/26 1323 2024 Amiodarone HCl 200 MG DAILY 02/14 09 AC 02/19 PO 0932 Atorvastatin Calcium 40 MG 1700 02/14 1700 AC 02/19 PO 1658 Cephalexin 500 MG TID 02/16 1400 AC 02/19 PO 2021 Cyanocobalamin 2,000 MCG DAILY 02/17 09 AC 02/19 PO 0933 Lisinopril 10 MG DAILY 02/14 0900 AC 02/19 PO 0932 Metoprolol Succinate 25 MG DAILY 02/14 0900 AC 02/19 PO 0932 Prednisone 40 MG DAILY 02/20 0900 AC PO 02/22 0901 Prednisone 50 MG DAILY 02/17 09 DC 02/19 PO 02/19 0901 0933 Rifampin 300 MG BID 02/14 0900 AC 02/19 PO 2021 Warfarin Sodium 15 MG COUMADIN 1700 ONE 02/20 1700 UNVr PO 02/20 1701 Warfarin Sodium 15 MG COUMADIN 1700 ONE 02/19 1700 DC 02/19 PO 02/19 1701 1658 Vital Signs & I&O Last 24 Hrs of Vitals and I&O: Vital Signs Date Time Temp Pulse Resp B/P B/P Pulse O2 O2 Flow FiO2 Mean Ox Delivery Rate 02/20 06 98.9 83 18 156/70 90 Nasal 2.0L Cannula 02/20 0235 89 Nasal 2.0L Cannula 02/20 0000 Nasal 2.0L Cannula 02/19 2207 97.5 70 18 134/62 93 Nasal 2.0L Cannula 02/19 1632 92 Nasal 3.0L Cannula 02/19 1458 Nasal 2.0L Cannula 02/19 1420 98.2 74 18 114/64 91 Nasal 2.0L Cannula 02/19 0932 90 135/65 02/19 0932 90 135/65 02/19 0932 90 135/65 Intake & Output 02/20 1600 02/20 0800 02/20 0000 Intake Total 120 240 Output Total Balance 120 240 Intake, Oral 120 240 Patient 177 lb Weight Oxygen saturation 2 L 90% exam of his chest shows rare expiratory wheezing cardiac exam shows regular S1 and S2 without murmurs is no edema Impression/Plan Impression/Plan Impression/Plan: 72-year-old gentleman with chronic hypoxic respiratory failure severe end-stage COPD now has evidence of confusion Recommendations: Optimize INR. Continue baseline antibiotic regimen for chronic knee infection. Increase FiO2 to 3 L. Await case Management input regarding pulmonary short- term rehabilitation repeat labs and obtain arterial blood gas
--- NOTE | 2018-02-20 12:48 | PN- Att Addend ---
See Addendum Attending Addendum Attending Brief Note Again had a horrible night and morning. He states he had hallucinations. Family at the bedside monitoring oxygen saturations closely when he takes a deep breath go to 89-90%. Patient sitting at the age of the bed seems anxious today. No major changes on physical. His ABGs show that P CO2 a 56,. We will last occurred the to reevaluate the patient. Patient is a DNR/DNI at this time. We' ll continue close observation. Patient had appreciation into the lung scan which showed low probability for pulmonary emboli. Patient seems to be normal sinus rhythm. His INR is still subtherapeutic, we'll continue to adjust Coumadin accordingly. Intake & Output 02/20 1600 02/20 0400 02/19 1600 02/19 0400 02/18 1600 02/18 0400 Intake Total 120 240 860 240 510 480 Output Total 500 Balance 120 240 860 240 10 480 Intake, IV 10 Intake, Oral 120 240 860 240 500 480 Number 0 1 Bowel Movements Output, Urine 500 Patient 177 lb 178 lb 183 lb Weight Current Medications Sig/Luis Start time Last Medication Dose Route Stop Time Status Admin Acetaminophen 650 MG Q6P PRN 02/14 0245 AC 02/20 PO 0709 Albuterol Sulfate 3 ML EVERY 4 HRS/AWAKE 02/14 1200 AC 02/20 INH 0738 Albuterol Sulfate 3 ML Q4P PRN 02/14 0115 AC 02/15 INH 1143 Albuterol Sulfate 2 PUF Q4-6 PRN PRN 02/13 2315 AC 02/18 INH 0955 Alprazolam 0.25 MG TID 02/19 1400 DC 02/19 PO 02/26 1359 1321 Alprazolam 0.25 MG TIDPRN PRN 02/19 1330 AC 02/19 PO 02/26 1323 2024 Amiodarone HCl 200 MG DAILY 02/14 0900 AC 02/20 PO 0959 Atorvastatin Calcium 40 MG 1700 02/14 1700 AC 02/19 PO 1658 Cephalexin 500 MG TID 02/16 1400 AC 02/20 PO 0957 Cyanocobalamin 2,000 MCG DAILY 02/17 0900 AC 02/20 PO 0959 Ibuprofen 400 MG ONCE ONE 02/20 1130 DC 02/20 PO 02/20 1131 1137 Lisinopril 10 MG DAILY 02/14 900 AC 02/20 PO 0959 Metoprolol Succinate 25 MG DAILY 02/14 900 AC 02/20 PO 0959 Prednisone 40 MG DAILY 02/20 900 AC 02/20 PO 02/22 0901 0959 Rifampin 300 MG BID 02/14 900 AC 02/20 PO 0959 Warfarin Sodium 15 MG COUMADIN 1700 ONE 02/20 1700 AC PO 02/20 1701 Warfarin Sodium 15 MG COUMADIN 1700 ONE 02/19 1700 DC 02/19 PO 02/19 1701 1658 Laboratory Tests 02/20/18 0820: pH 7.36, pCO2 56 H, pO2 62 L, HCO3 31 H, ABG O2 Sat (Measured) 89.0 L, Carboxyhemoglobin 0.7 L, O2 Concentration % 2L, O2 Delivery Method NC, Phlebotomy Draw Site RIGHT RADIAL 02/20/18 0623: PT 13.2 H, INR 1.21 H 02/19/18 0655: PT 12.9 H, INR 1.18 H, APTT 31 02/18/18 0735: PT 13.8 H, INR 1.26 H, APTT 32 Vital Signs Date Time Temp Pulse Resp B/P B/P Pulse O2 O2 Flow FiO2 Mean Ox Delivery Rate 02/20 09 86 138/50 02/20 0959 86 138/50 02/20 0959 86 138/50 02/20 0800 91 Nasal 2.0L Cannula 02/20 0607 98.9 83 18 156/70 90 Nasal 2.0L Cannula 02/20 0235 89 Nasal 2.0L Cannula 02/20 0000 Nasal 2.0L Cannula 02/19 2207 97.5 70 18 134/62 93 Nasal 2.0L Cannula 02/19 1632 92 Nasal 3.0L Cannula 02/19 1458 Nasal 2.0L Cannula 02/19 1420 98.2 74 18 114/64 91 Nasal 2.0L Cannula
--- NOTE | 2018-02-20 14:23 | Cons- Palliative Care ---
General Information and HPI Consulting Request Date of Consult: 02/20/18 Requested By: Red Lopez MD Reason for Consult: non-pain symptom mgmt, care/transition planning Source patient, family, old records Exam Limitations no limitations History of Present Illness: Mr. Welch is 72 year old male with past medical history of Afib, CHF, gout, COPD steroid and oxygen dependent.Patient was admitted due to COPD exacerbation with acute on chronic hypoxic and hypercabnic respiratory failure. Patient received steroid and antibiotic treatment however shortness of breath remains disabling. Palliative care consultation was requested today. Patient was interviewed with his at bedside. He seemed in mild distress from SOB however able to provide detailed history and engaged in conversation. Patient expressed his wishes to be more comfortable. Patient reported severe refractory dyspnea that prevents him from being able to do simple life activity like showering and going in visits. Allergies/Medications Allergies: Coded Allergies: NO KNOWN ALLERGIES (08/21/15) Home Med List: Albuterol Sulfate (Proair Hfa) 90 MCG HFA.AER.AD 2 PUF INH Q4-6 PRN PRN Shortness of breath (Reported) Albuterol Sulfate 2.5 MG/3 ML (0.083 %) VIAL.NEB 1 Vial INH/KIMANI Q4P PRN Shortness of breath (Reported) Amiodarone (Cordarone) 200 MG TABLET 1 TAB PO DAILY HEART (Reported) Atorvastatin Calcium 40 MG TABLET 1 TAB PO DAILY cholesterol (Reported) Cephalexin (Keflex) 500 MG CAPSULE 1 CAP PO TID prosthetic joint infection ( Reported) Cholecalciferol (Vitamin D3) (Vitamin D) 1,000 UNIT TABLET 1 TAB PO DAILY OSTEOPOROSIS Clobetasol Propionate 0.05 % SOLUTION 1 JO TOP ONCE A WEEK SCALP (Reported) Clobetasol Propionate 0.05 % CREAM..G. 1 JO TOP AD SKIN (Reported) apply to affected area(s) Digoxin 125 MCG TABLET 1 TAB PO DAILY HEART (Reported) Fluticasone/Salmeterol (Advair 250-50 Diskus) 250 MCG-50 MCG/DOSE BLST.W.DEV 1 PUF INH BID Shotness of breath (Reported) Hydrocortisone 2.5 % CREAM..G. 1 JO TOP AD PRN SKIN (Reported) apply to affected area(s) Hydroxyzine Hydrochloride (Atarax) 25 MG TAB 1 TAB PO BID PRN Rash . Lisinopril 10 MG TABLET 1 TAB PO DAILY HIGH BLOOD PRESSURE (Reported) Metoprolol Succ XL (Toprol XL) 25 MG TAB 1 TAB PO DAILY heart health ( Reported) Nystatin (Nyamyc) 100,000 UNIT/GRAM POWDER 1 JO TOP PRN GROIN (Reported) Pantoprazole Sodium (Protonix) 20 MG TABLET.DR 2 TAB PO DAILY ACID REFLUX ( Reported) Prednisone 10 MG TABLET 1 TAB PO BID STEROID (Reported) Rifampin (Rifadin) 300 MG CAPSULE 1 CAP PO BID Septic arthritis Please follow up infectious disease Dr. Lui for further antibiotic course. His contact # [phone] Tiotropium [place] (Spiriva) 18 MCG CAP.W.DEV 1 CAP INH DAILY Shortness of breath (Reported) Triamcinolone Acetonide 0.1 % CREAM..G. 1 JO TOP AD PRN SKIN (Reported) Warfarin Sodium (Coumadin) 5 MG TABLET 1 TAB PO DAILY BLOOD THINNER (Reported ) Warfarin Sodium (Coumadin) 10 MG TABLET 1 TAB PO DAILY BLOOD THINNER ( Reported) Review of Systems Review of Systems Constitutional: Reports: weakness. Denies: chills, fever. EENTM: Denies: blurred vision, visual changes. Respiratory: Reports: cough, short of breath. Cardiovascular: Denies: chest pain, palpitations. Gastrointestinal/Abdominal: Denies: abdominal pain, vomiting. 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 Uncle (ID at age 40). FH: myocardial infarction SISTER FH: lung cancer FATHER Psychosocial History Where Do You Live? Home Who Do You Live With? spouse, 2 daughters, one son, granddaughter and her Services at Home: Oxygen Primary Language: British Smoking Status: Unknown If Ever Smoked Functional Ability ADLs Independent: dressing, eating, toileting, bathing. Ambulation: independent IADLs Independent: shopping, housework, finances, food prep, telephone, transportation , medication admin. Exam & Diagnostic Data Last 24 Hrs of Vitals/I&Os: Vital Signs Date Time Temp Pulse Resp B/P B/P Pulse O2 O2 Flow FiO2 Mean Ox Delivery Rate 02/20 1655 94 Nasal 2.0L Cannula 02/20 1436 98.1 75 26 142/90 91 Room Air 02/20 1250 93 Nasal 2.0L Cannula 02/20 0959 86 138/50 02/20 0959 86 138/50 02/20 0959 86 138/50 02/20 0800 91 Nasal 2.0L Cannula 02/20 0740 93 Nasal 2.0L Cannula 02/20 0607 98.9 83 18 156/70 90 Nasal 2.0L Cannula 02/20 0235 89 Nasal 2.0L Cannula 02/20 0000 Nasal 2.0L Cannula 02/19 2207 97.5 70 18 134/62 93 Nasal 2.0L Cannula Intake & Output 02/20 1600 02/20 0800 02/20 0000 Intake Total 400 120 240 Output Total 200 Balance 200 120 240 Intake, Oral 400 120 240 Number 1 Bowel Movements Output, Urine 200 Patient 80.371 kg Weight Physical Exam General Appearance: alert, awake, mild distress Head: atraumatic Eyes: Bilateral: normal appearance, PERRL. Ears, Nose, Throat: hearing grossly normal Neck: normal inspection, supple Respiratory: decreased breath sounds, wheezing Cardiovascular: regular rate/rhythm Gastrointestinal: normal bowel sounds, soft, non-tender Assessment/Plan Assessment 72M with end-stage COPD, interested in prioritizing his comfort as the primary goal of care. Patient's Condition: serious Prognosis: poor Is Patient Decisional? yes Case Discussed With: patient, family, house staff, attending Goals of Care: limited medical treatment Other Recommendations: 1. Consider treatment of dyspnea with low dose morphine oral solution - may use 2.5mg-5mg q2h PRN 2. Consider addition of Mirtazapine 15mg qhs for insomnia, appetite stimulation , mood enhancement, and anxiety control 3. May use alparazolam for breakthrough anxiety 4. Patient will benefit greatly from a home-hospice plan of care that seeks to maximize his comfort and function at home 5. Avoid escalation of care in setting of further worsening of his underlying condition or if current care is no longer effective Consult Acknowledgment - Thank you for your consult request.
[2018-02-20 14:36] VITALS: BP 142/90
--- NOTE | 2018-02-20 15:23 | Cons- Palliative Care ---
General Information and HPI Allergies/Medications Allergies: Coded Allergies: NO KNOWN ALLERGIES (08/21/15) Home Med List: Albuterol Sulfate (Proair Hfa) 90 MCG HFA.AER.AD 2 PUF INH Q4-6 PRN PRN Shortness of breath (Reported) Albuterol Sulfate 2.5 MG/3 ML (0.083 %) VIAL.NEB 1 Vial INH/KIMANI Q4P PRN Shortness of breath (Reported) Amiodarone (Cordarone) 200 MG TABLET 1 TAB PO DAILY HEART (Reported) Atorvastatin Calcium 40 MG TABLET 1 TAB PO DAILY cholesterol (Reported) Cephalexin (Keflex) 500 MG CAPSULE 1 CAP PO TID prosthetic joint infection ( Reported) Cholecalciferol (Vitamin D3) (Vitamin D) 1,000 UNIT TABLET 1 TAB PO DAILY OSTEOPOROSIS Clobetasol Propionate 0.05 % SOLUTION 1 JO TOP ONCE A WEEK SCALP (Reported) Clobetasol Propionate 0.05 % CREAM..G. 1 JO TOP AD SKIN (Reported) apply to affected area(s) Digoxin 125 MCG TABLET 1 TAB PO DAILY HEART (Reported) Fluticasone/Salmeterol (Advair 250-50 Diskus) 250 MCG-50 MCG/DOSE BLST.W.DEV 1 PUF INH BID Shotness of breath (Reported) Hydrocortisone 2.5 % CREAM..G. 1 JO TOP AD PRN SKIN (Reported) apply to affected area(s) Hydroxyzine Hydrochloride (Atarax) 25 MG TAB 1 TAB PO BID PRN Rash . Lisinopril 10 MG TABLET 1 TAB PO DAILY HIGH BLOOD PRESSURE (Reported) Metoprolol Succ XL (Toprol XL) 25 MG TAB 1 TAB PO DAILY heart health ( Reported) Nystatin (Nyamyc) 100,000 UNIT/GRAM POWDER 1 JO TOP PRN GROIN (Reported) Pantoprazole Sodium (Protonix) 20 MG TABLET.DR 2 TAB PO DAILY ACID REFLUX ( Reported) Prednisone 10 MG TABLET 1 TAB PO BID STEROID (Reported) Rifampin (Rifadin) 300 MG CAPSULE 1 CAP PO BID Septic arthritis Please follow up infectious disease Dr. Lui for further antibiotic course. His contact # [phone] Tiotropium [place] (Spiriva) 18 MCG CAP.W.DEV 1 CAP INH DAILY Shortness of breath (Reported) Triamcinolone Acetonide 0.1 % CREAM..G. 1 JO TOP AD PRN SKIN (Reported) Warfarin Sodium (Coumadin) 5 MG TABLET 1 TAB PO DAILY BLOOD THINNER (Reported ) Warfarin Sodium (Coumadin) 10 MG TABLET 1 TAB PO DAILY BLOOD THINNER ( Reported) Past History Medical History Blood Transfusion Hx No Neurological: NONE EENT: cataracts Cardiovascular: AFIB, CHF, hypertension, hyperlipidemia Respiratory: COPD (2L O2& steroid dependent), pneumonia, O2 DEP 2L Gastrointestinal: GERD, pancreatitis Hepatic: hepatic cysts Renal: chronic kidney disease Musculoskeletal: gout Psychiatric: NONE Endocrine: diabetes (insulin-requiring) Blood Disorders: NONE Cancer(s): NONE 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 Uncle (DC at age 40). FH: myocardial infarction SISTER FH: lung cancer FATHER Psychosocial History Where Do You Live? Home Who Do You Live With? spouse, 2 daughters, one son, granddaughter and her Services at Home: Oxygen Primary Language: Tanzanian Smoking Status: Unknown If Ever Smoked Functional Ability ADLs Independent: dressing, eating, toileting, bathing. Ambulation: independent IADLs Independent: shopping, housework, finances, food prep, telephone, transportation , medication admin. Assessment/Plan Consult Acknowledgment - Thank you for your consult request.
[2018-02-20 21:10] VITALS: BP 108/58
--- NOTE | 2018-02-21 07:06 | PN- Housestaff ---
Subjective Follow-up For: copd [id number] Complaints: shortness of breath, hallucinations Subjective: Patient seen and examined at the bedside. and daughter at the bedside as well. Patient highly confused, hallucinating meetings with his family that are not happening. Per family request, patient is being converted to hospice care in hospital. Review of Systems Constitutional: Reports: see HPI. Respiratory: Reports: cough, orthopnea, short of breath, sputum production, wheezing. Objective Last 24 Hrs of Vital Signs/I&O Vital Signs Date Time Temp Pulse Resp B/P B/P Pulse O2 O2 Flow FiO2 Mean Ox Delivery Rate 02/21 1200 88 Nasal 4.0L Cannula 02/21 0843 97 Nasal 2.5L Cannula 02/21 0827 90 112/60 02/21 0827 90 112/60 02/21 0827 90 112/02/21 0800 92 Nasal 3.0L Cannula 02/21 0737 98.2 91 20 112/60 85 02/21 0113 98 Nasal 2.5L Cannula 02/21 0015 92 Nasal 3.0L Cannula 02/21 0000 87 Nasal 2.5L Cannula 02/21 0000 92 Nasal 3.0L Cannula 02/20 2110 98.0 70 20 108/58 91 Nasal 2.5L Cannula 02/20 1655 94 Nasal 2.0L Cannula 02/20 1600 Nasal 3.0L Cannula Intake & Output 02/21 1600 02/21 0800 02/21 0000 Intake Total 360 480 Output Total 200 400 Balance 160 80 Intake, Oral 360 480 Output, Urine 200 400 Patient 182 lb Weight Weight Bed scale Measurement Method Physical Exam General Appearance: Alert, Cooperative, Severe Distress, disoriented Skin: No Rashes, No Breakdown, No Significant Lesion Skin Temp/Moisture Exam: Warm/Dry HEENT: Atraumatic, PERRLA, EOMI, Mucous Membr. moist/pink Neck: Supple, No JVD, No thryomegaly Lymphatic: Axillary nl, Cervical nl Cardiovascular: Regular Rate, Normal S1, Normal S2, No Murmurs, Gallops, Rubs Lungs: diffuse wheezes, inspiratory and expiratory. great effort and accessory muscle use to breathe Abdomen: Normal Bowel Sounds, Soft, No Tenderness, No Hepatospenomegaly, No Masses Neurological: see hpi Extremities: No Clubbing, No Cyanosis, No Edema, Normal Pulses, No Tenderness/ Swelling Vascular: Normal Pulses, Pulses Symmetrical Current Medications: Current Medications Sig/Luis Start time Last Medication Dose Route Stop Time Status Admin Acetaminophen 650 MG Q6P PRN 02/14 0245 DCD 02/20 PO 0709 Albuterol Sulfate 3 ML EVERY 4 HRS/AWAKE 02/14 1200 DCD 02/21 INH 1130 Albuterol Sulfate 3 ML Q4P PRN 02/14 0115 DCD 02/15 INH 1143 Albuterol Sulfate 2 PUF Q4-6 PRN PRN 02/13 2315 DCD 02/18 INH 0955 Amiodarone HCl 200 MG DAILY 02/14 0900 DCD 02/21 PO 0827 Atorvastatin Calcium 40 MG 1700 02/14 1700 DCD 02/20 PO 1707 Cephalexin 500 MG TID 02/16 1400 DCD 02/21 PO 0827 Cyanocobalamin 2,000 MCG DAILY 02/17 0900 DCD 02/21 PO 0827 Ibuprofen 400 MG .STK-MED ONE 02/20 2316 DC PO 02/20 2317 Lisinopril 10 MG DAILY 02/14 0900 DCD 02/21 PO 0827 Metoprolol Succinate 25 MG DAILY 02/14 0900 DCD 02/21 PO 0827 Mirtazapine 15 MG AT BEDTIME 02/20 2100 DCD 02/20 PO 2115 Morphine Sulfate 2.5 MG Q4 PRN 02/20 1300 DCD 02/21 PO 1349 Prednisone 40 MG DAILY 02/20 0900 DCD 02/21 PO 02/22 0901 0827 Rifampin 300 MG BID 02/14 09 DCD 02/21 PO 0827 Warfarin Sodium 20 MG COUMADIN 1700 ONE 02/21 1700 DCD PO 02/21 1701 Warfarin Sodium 15 MG COUMADIN 1700 ONE 02/20 1700 DC PO 02/20 1701 Warfarin Sodium 20 MG COUMADIN 1700 ONE 02/20 1700 DC 02/20 PO 02/20 1701 1707 Last 24 Hrs of Lab/Chacorta Results Last 24 Hrs of Labs/Mics: Laboratory Tests 02/21/18 0928: Anion Gap 6, Estimated GFR 50 L, BUN/Creatinine Ratio 19.3, PT 17.5 H, INR 1.60 H, CBC w Diff NO MAN DIFF REQ, RBC 3.81 L, MCV 86.9, MCH 28.5, MCHC 32.8 L, RDW 16.5 H, MPV 8.1, Gran % 48.8, Lymphocytes % 13.4 L, Monocytes % 8.7, Eosinophils % 28.2 H, Basophils % 0.9, Absolute Granulocytes 4.4, Absolute Lymphocytes 1.2, Absolute Monocytes 0.8 H, Absolute Eosinophils 2.5, Absolute Basophils 0.1 02/21/18 0520: Urine Color YEL, Urine Clarity CLEAR, Urine pH 6.0, Ur Specific [place] 1.025, Urine Protein NEG, Urine Ketones NEG, Urine Nitrite NEG, Urine Bilirubin NEG, Urine Urobilinogen 0.2, Ur Leukocyte Esterase NEG, Ur Microscopic EXAM NOT REQUIRED, Urine Hemoglobin NEG, Urine Glucose NEG Microbiology 02/22 520 URINE ROUT: Urine Culture - RECD Assessment/Plan Assessment: The patient is a 72yo gentleman with past medical history of Afib, CHF, gout, COPD x 10 years which is steroid dependent and currently on 2L home oxygen, presents to the ER with acute exacerbation of his symtoms this morning, admitted for treatment of acute COPD exacerbation #Acute COPD Exacerbation on top of chronic respiratory failure - resolving #Afib - stable -Patient converted hospice, comfort care measures implement #Previous Septic Knee -On prophylactic abx; rifampin and keflex -Appreciate pulmonary recommendations - continue therapy DVT ppx Heart healthy diet Patient is comfort care Problem List: 1. Subtherapeutic anticoagulation 2. COPD exacerbation Pain Ratin Pain Location: none Pain Goal: Remain pain free Pain Plan: oral morphine and tylenol Tomorrow's Labs & Rationales: none planned Discharge Plan Discharge Disposition: hospice in hospital Stable for Discharge? Yes Anticipated Discharge (Day): today
[2018-02-21 07:37] VITALS: BP 112/60
--- NOTE | 2018-02-21 08:07 | PN- Pulmonary ---
Subjective HPI/Critical Care Issues: Mr. Welch remains dyspneic and uncomfortable palliative care consult reviewed and appreciated. Mr Welch is accepting of care to be directed at maintaining comfort. I discussed the option of hospice with him and will pursue the concept of home hospice Objective Current Medications: Current Medications Sig/Luis Start time Last Medication Dose Route Stop Time Status Admin Acetaminophen 650 MG Q6P PRN 02/14 0245 AC 02/20 PO 0709 Albuterol Sulfate 3 ML EVERY 4 HRS/AWAKE 02/14 1200 AC 02/21 INH 0804 Albuterol Sulfate 3 ML Q4P PRN 02/14 0115 AC 02/15 INH 1143 Albuterol Sulfate 2 PUF Q4-6 PRN PRN 02/13 2315 AC 02/18 INH 0955 Alprazolam 0.25 MG TIDPRN PRN 02/19 1330 DC 02/19 PO 02/26 1323 2024 Amiodarone HCl 200 MG DAILY 02/14 09 AC 02/20 PO 0959 Atorvastatin Calcium 40 MG 1700 02/14 1700 AC 02/20 PO 1707 Cephalexin 500 MG TID 02/16 1400 AC 02/20 PO 2115 Cyanocobalamin 2,000 MCG DAILY 02/17 09 AC 02/20 PO 0959 Ibuprofen 400 MG .STK-MED ONE 02/20 2316 DC PO 02/20 2317 Ibuprofen 400 MG ONCE ONE 02/20 1130 DC 02/20 PO 02/20 1131 1137 Lisinopril 10 MG DAILY 02/14 0900 AC 02/20 PO 0959 Metoprolol Succinate 25 MG DAILY 02/14 0900 AC 02/20 PO 0959 Mirtazapine 15 MG AT BEDTIME 02/20 2100 AC 02/20 PO 2115 Morphine Sulfate 2.5 MG Q4 PRN 02/20 1300 AC 02/21 PO 0518 Prednisone 40 MG DAILY 02/20 0900 AC 02/20 PO 02/22 0901 0959 Rifampin 300 MG BID 02/14 09 AC 02/20 PO 2114 Warfarin Sodium 15 MG COUMADIN 1700 ONE 02/20 1700 DC PO 02/20 1701 Warfarin Sodium 20 MG COUMADIN 1700 ONE 02/20 1700 DC 02/20 PO 02/20 1701 1707 Vital Signs & I&O Last 24 Hrs of Vitals and I&O: Vital Signs Date Time Temp Pulse Resp B/P B/P Pulse O2 O2 Flow FiO2 Mean Ox Delivery Rate 02/21 0737 98.2 91 20 112/60 85 02/21 0113 98 Nasal 2.5L Cannula 02/21 0015 92 Nasal 3.0L Cannula 02/21 0000 87 Nasal 2.5L Cannula 02/21 0000 92 Nasal 3.0L Cannula 02/20 2110 98.0 70 20 108/58 91 Nasal 2.5L Cannula 02/20 1655 94 Nasal 2.0L Cannula 02/20 1600 Nasal 3.0L Cannula 02/20 1436 98.1 75 26 142/90 91 Room Air 02/20 1250 93 Nasal 2.0L Cannula 02/20 0959 86 138/50 02/20 0959 86 138/50 02/20 0959 86 138/50 Intake & Output 02/21 1600 02/21 0800 02/21 0000 Intake Total 360 480 Output Total 200 400 Balance 160 80 Intake, Oral 360 480 Output, Urine 200 400 Patient remains short of breath exam for chest shows markedly diminished breath sounds are no wheezes cardiac exam shows regular S1 and S2 without murmurs Impression/Plan Impression/Plan Impression/Plan: 72-year-old gentleman with severe end-stage COPD now interested in comfort care. Follow up on recommendations from palliative care. Please have case management pursue feasibility of home hospice. Recommendations: Optimize INR. Continue baseline antibiotic regimen for chronic knee infection. Increase FiO2 to 3 L. Await case Management input regarding pulmonary short- term rehabilitation repeat labs and obtain arterial blood gas
[2018-02-21 08:27] VITALS: BP 112/60
[2018-02-21 10:07] LABS: ABSOLUTE BASOPHIL COUNT 0.1 /CUMM (0.0-0.2); ABSOLUTE EOSINOPHIL COUNT 2.5 /CUMM (0.0-0.7); ABSOLUTE GRANULOCYTE CT 4.4 /CUMM (1.4-6.5); ABSOLUTE LYMPH COUNT 1.2 /CUMM (1.2-3.4); ABSOLUTE MONOCYTE COUNT 0.8 /CUMM (0.10-0.60); BASOPHIL % 0.9 % (0.0-2.0); GRANULOCYTE % 48.8 % (42.2-75.2); HEMATOCRIT 33.1 % (42-52); MEAN CORPUSCULAR HGB 28.5 PG (27.0-31.0); MEAN CORPUSCULAR HGB CONC 32.8 G/DL (33.0-37.0); MEAN CORPUSCULAR VOLUME 86.9 FL (80.0-94.0); MEAN PLATELET VOLUME 8.1 FL (7.4-10.4); PLATELET COUNT 275 /CUMM (130-400); RBC DISTRIBUTION WIDTH 16.5 % (11.5-14.5); RED BLOOD CELL CT 3.81 /CUMM (4.70-6.10); WHITE BLOOD CELL COUNT 8.9 /CUMM (4.8-10.8)
[2018-02-21 10:17] LABS: PT 17.5 SEC (9.4-12.5)
[2018-02-21 10:39] LABS: EOSINOPHIL % 28.2 % (0-5)
== END 2018-02-21 14:07 | disposition hospice, home (50) | DRG 190 ==
LOC: ERH 18:51 → 2NB 22:00 → ERHI 22:00 → ENRESERV 22:49 → 2NB 02-14 00:41
PROVIDERS: General Practice; Internal Medicine; Physical Medicine & Rehabilitation; Physician Assistant
DX: J44.1 Chronic obstructive pulmonary disease with (acute) exacerbation (principal); J96.02 Acute respiratory failure with hypercapnia; J96.21 Acute and chronic respiratory failure with hypoxia; I13.0 Hypertensive heart and chronic kidney disease with heart failure and stage 1 through stage 4 chronic kidney disease, or unspecified chronic kidney disease; I50.32 Chronic diastolic (congestive) heart failure; J96.11 Chronic respiratory failure with hypoxia; R44.3 Hallucinations, unspecified; Z51.5 Encounter for palliative care; J20.9 Acute bronchitis, unspecified; Z99.81 Dependence on supplemental oxygen; N18.9 Chronic kidney disease, unspecified; Z79.01 Long term (current) use of anticoagulants; M10.9 Gout, unspecified; Z79.51 Long term (current) use of inhaled steroids; Z79.52 Long term (current) use of systemic steroids; H26.9 Unspecified cataract; E78.5 Hyperlipidemia, unspecified; Z96.653 Presence of artificial knee joint, bilateral; E11.22 Type 2 diabetes mellitus with diabetic chronic kidney disease; Z66 Do not resuscitate; I48.0 Paroxysmal atrial fibrillation; R79.1 Abnormal coagulation profile; D72.1 Eosinophilia; E53.8 Deficiency of other specified B group vitamins
CPT/HCPCS: 2NBP; ERO; 36415; 36592; 71045; 71046; 78582; 81003; 82436; 87040; 87086; 87449; 87450; 93005; 93010; A9540; A9558; J0456; J0696; J2920; J2930; J3420; J3490; J7040

== ENCOUNTER 2018-02-21 14:15 | Inpatient (IN) | payer OTHER ==
[~2018-02-21 14:15] MED LIST changes: +COUMADIN10 M1 PO; +COUMADIN5 M2 PO
--- NOTE | 2018-02-21 14:32 | History & Physical ---
General Information and HPI Chief Complaint: admit to hospice Source of Information: old records Exam Limitations: unable to give history, clinical condition Associated Symptoms: dyspnea History of Present Illness: Mr. Welch is 72 year old male with past medical history of Afib, CHF, gout, COPD steroid and oxygen dependent.Patient was admitted due to COPD exacerbation with acute on chronic hypoxic and hypercabneic respiratory failure. Patient received steroid and antibiotic treatment however shortness of breath remains disabling. Palliative care consultation was performed yesterday and at that time he was able to express his wishes to be more comfortable. Patient reported severe refractory dyspnea that prevents him from being able to do simple life activity like showering and going on visits. The plan was to start pt on remeron last night for poor appetite and low mood, and start low dose morphine for dyspnea and pursue hospice at home. Nursing staff reports pt had started to deteriorate yesterday afternoon with worsening dyspnea. He received morphine oral concentrate x 3 since then and was started on remeron as well. Dyspnea has worsened today and oxygen saturation has dropped into the 80s and pt is very lethargic. It was felt he was too unstable for discharge and that his symptoms would be best managed in acute hospice and family has agreed. 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 Functional Ability: Independent with ADLs/IADLS Review of Systems Review of Systems Constitutional: Reports: see HPI. Exam & Diagnostic Data Last 24 Hrs of Vital Signs/I&O Vital Signs Date Time Temp Pulse Resp B/P B/P Pulse O2 O2 Flow FiO2 Mean Ox Delivery Rate 02/21 1435 Nasal 4.0L Cannula 02/21 1430 99.1 92 44 89 Nasal 4.0L Cannula Physical Exam General Appearance Moderate Distress (due to dyspnea) Skin No Breakdown HEENT Atraumatic Cardiovascular Regular Rate, Normal S1, Normal S2 Lungs Increased effort, shallow and rapid respirations, RR-44, poor aeration Abdomen Soft, No Tenderness Extremities No Cyanosis, No Edema Last 24 Hrs of Labs/Chacorta: 02/21/18: CBC with wbc 8.9, H/H 10.9/33.1, plt 275 Chem with Na 131, K 5.5, Bun 27, Cr 1.4 Urine negative 02/20/18: ABG 7.36/56/62/31/89 on 2Lnc Diagnostic Data CXR Results 02/18/18: IMPRESSION: 1. Findings consistent with obstructive lung disease. No new superimposed acute process is noted. 2. Ectatic atherosclerotic aorta. Other Results HQ scan 02/18/18: IMPRESSION: Very low probability of pulmonary embolism. Delayed washout present on the ventilation images is evidence of obstructive airway disease. Assessment/Plan Assessment: 72 y.o. male with end-stage COPD with acute hypoxic, hypercapneic respiratory failure due to acute exacerbation of COPD. Plan: Severe dyspnea-give morphine 2 mg IV now, start morphine drip at 2 mg hourly with 2 mg bolus , o2 4 lnp, TRC Ativan 1 mg IV every 4 hrs as needed for anxiety Place travis catheter Scopolamine and Robinul as needed for secretions Discussed with assistant administrator and nursing
[2018-02-21 19:12] VITALS: BP 100/44
== END 2018-02-21 20:10 | disposition expired | DRG 190 ==
LOC: 2NA 14:15
DX: J44.1 Chronic obstructive pulmonary disease with (acute) exacerbation (principal); J96.02 Acute respiratory failure with hypercapnia; J96.21 Acute and chronic respiratory failure with hypoxia; I13.0 Hypertensive heart and chronic kidney disease with heart failure and stage 1 through stage 4 chronic kidney disease, or unspecified chronic kidney disease; I50.32 Chronic diastolic (congestive) heart failure; Z99.81 Dependence on supplemental oxygen; M10.9 Gout, unspecified; Z79.52 Long term (current) use of systemic steroids; I48.91 Unspecified atrial fibrillation; Z96.653 Presence of artificial knee joint, bilateral; E78.5 Hyperlipidemia, unspecified; N18.9 Chronic kidney disease, unspecified
CPT/HCPCS: J2270